=== PATIENT | female | born 1940 | race Caucasian/White ===

== ENCOUNTER 2024-06-28 17:27 | Inpatient (IN) ==
--- NOTE | 2024-06-28 17:32 | ED Triage Note ---
Date of Service June 28, 2024 Provider in Triage Author: Sangita Woo History of Present Illness This patient was briefly evaluated while in triage. An abbreviated physical exam was performed. This patient is a 83-year-old Female who presents to the ED for evaluation here with son and lethargic, weakness, poor PO intake, less verbal, tremulous since a fall a couple of days ago fell with walker - hit right shoulder, injured right wrist, unsure if hit her head DMT1, CKD BSG 257 in triage tested positive for COVID 3 days ago, they have been testing patient daily and she has been negative. Physical Exam GENERAL: awake and cooperative in wheelchair CARDIOVASCULAR: tachycardic RESPIRATORY: CTA ABDOMEN: BS x 4. Nontender to palpation. EXT: ecchymosis noted to right shoulder Initial orders for labs and / or imaging were placed and patient was placed in the waiting area until a bed is available. Please see further documentation for the full ED course.
--- NOTE | 2024-06-28 18:04 | Emergency Department Note ---
Impression & Plan COVID-19 virus infection Admission ED Provider Note HPI: History obtained from patient. The patient is a 83-year-old female with history of dementia, presents to the emergency department with her and her son at the bedside for concern for altered mental status. Patient's family states over the past several days she has been weaker than usual, she has had a diminished appetite, she seemed to be lucid up until the past 24 hours or so when she has been more confused. Patient's son states that 2 days ago she did have a fall in the bathroom. On arrival here to the ED the patient is mildly tachycardic, she is otherwise hemodynamically stable and saturating well on room air. Patient does not have any focal deficits on my initial evaluation. ROS: - Per HPI Differential Diagnosis: Sepsis, intracranial hemorrhage, stroke, hepatic encephalopathy, metabolic encephalopathy, acute on chronic dementia, urinary tract infection, viral upper respiratory infection, amongst other potential pathologies. *Outpatient medications and allergy history reviewed. PE: General: Alert, frail-appearing, no acute distress HEENT: Normocephalic, trachea midline Eyes: Extraocular eye movement is intact, no scleral erythema Pulmonary: Clear to auscultation bilaterally, no wheezing Cardio: Tachycardic rate with regular rhythm GI: Abdomen is soft to palpation : No suprapubic tenderness MSK: No evidence of trauma or malformation of the extremities, no edema Skin: No evidence of rash Neuro: Alert, no focal deficits, ambulates all extremities spontaneously, equal bilateral wildlife removal specialist strength, symmetrical facial movements are appreciated Psychiatric: Cooperative INDEPENDENT INTERPRETATIONS: quality assurance monitor: (As interpreted by myself): - An order was placed for continuous cardiac monitoring - Patient was noted to be in sinus rhythm with a rate of 110 EKG: (As interpreted by myself): Rate: 117 Rhythm: Probable sinus rhythm with significant baseline artifact Intervals: Within normal limits ST changes: No ST elevation Time: 1811 Chest x-ray: (As interpreted by myself): No acute disease Interventions provided in ED: -IV fluid bolus Medical Decision Making: IV was established and lab work obtained, patient was placed on groundwater monitoring technician. Lab work shows no leukocytosis, hemoglobin is stable at 9.6, platelet count is normal, CMP shows acute on chronic kidney injury with creatinine of 4.09, baseline appears to be around 3.3 based off previous lab work, troponin is mildly elevated at 17.2, COVID-19 testing was obtained and is positive. Chest x-ray per my interpretation does not show any evidence of acute disease. Patient remains mildly tachycardic, reassessment, CT imaging of head was obtained that does not show any evidence of any acute intracranial process. Patient's family expresses concern that she has not been eating, they do not feel that she is stable for discharge home to which I am in agreement. I did therefore discuss the patient's presentation with the on-call hospitalist for [facility], Dr. Jefferson, and the patient was placed for admission in stable condition for further care. Consultants/Discussions held with other healthcare providers: -Hospitalist, Dr. Jefferson Disposition discussion held by myself with: -Patient and patient's and son at the bedside Diagnosis: 1. COVID-19 infection, acute 2. Acute kidney injury 3. Anemia, chronic, stable 4. History of dementia 5. Elevated high-sensitivity troponin level, acute, mild Disposition: Admission Aries Man DO Emergency Medicine Past Med/Surg History Problem List (Updated 06/28/24 @ 23:20 by Aries Man DO) COVID-19 virus infection (Acute) Social History Smoking Status: Never smoker Preferred Language: Faroese Feels Safe at Home: Yes Allergies Allergies Allergy/AdvReac Type Severity Reaction Status Date / Time No Known Allergies Allergy Verified 06/28/24 17:33 Home Meds Home Medications Medication Instructions Recorded Confirmed aspirin 81 mg tablet,delayed 81 mg PO QAM 06/28/24 06/28/24 release atorvastatin 40 mg tablet 40 mg PO QAM 06/28/24 06/28/24 clopidogrel 75 mg tablet 75 mg PO QAM 06/28/24 06/28/24 ezetimibe 10 mg tablet 10 mg PO DAILY 06/28/24 06/28/24 insulin aspart U-100 100 unit/mL 0 sliding scale dose continuous 06/28/24 06/28/24 subcutaneous solution (Novolog subcutaneous infusion CONTINOUS U-100 Insulin aspart) metoprolol succinate 100 mg 100 mg PO QPM 06/28/24 06/28/24 tablet,extended release 24 hr nifedipine 60 mg tablet,extended 60 mg PO QAM 06/28/24 06/28/24 release 24 hr sodium bicarbonate 650 mg tablet 1,300 mg PO BID 06/28/24 06/28/24 Results & Data (ED) Vital Signs Vital Signs - 24 hr 06/28/24 17:30 06/28/24 18:22 06/28/24 18:24 Temperature 36.5 C Temperature Source Temporal Artery Scan Pulse Rate 111 H 117 H Pulse Rate [Apical] 103 H Respiratory Rate 18 20 18 Respiratory Effort / Characteristics Non-Labored Spontaneous Non-Labored Spontaneous Respiratory Depth Normal Respiratory Pattern Regular Regular Blood Pressure 117/74 Blood Pressure [Right Arm] 161/86 H Blood Pressure Mean 88 Blood Pressure Mean [Right Arm] 111 Blood Pressure Position [Right Arm] Semi-fowlers Pulse Oximetry 98 100 98 Oxygen Delivery Method Room Air Room Air Room Air Sepsis Recent Fever Within 48 Hours No Sepsis New/Unexplained Change in Mental Status N/A Sepsis Action Taken by Nursing No Action Required 06/28/24 18:24 06/28/24 18:49 06/28/24 20:52 Temperature Temperature Source Pulse Rate 137 H Pulse Rate [Apical] 113 H Respiratory Rate 19 Respiratory Effort / Characteristics Respiratory Depth Respiratory Pattern Blood Pressure Blood Pressure [Right Arm] 129/77 Blood Pressure Mean Blood Pressure Mean [Right Arm] 94 Blood Pressure Position [Right Arm] Pulse Oximetry 98 96 Oxygen Delivery Method Room Air Room Air Sepsis Recent Fever Within 48 Hours Sepsis New/Unexplained Change in Mental Status Sepsis Action Taken by Nursing 06/28/24 22:00 06/28/24 22:45 Temperature Temperature Source Pulse Rate 104 H Pulse Rate [Apical] 108 H Respiratory Rate 19 Respiratory Effort / Characteristics Respiratory Depth Respiratory Pattern Blood Pressure Blood Pressure [Right Arm] 122/97 Blood Pressure Mean Blood Pressure Mean [Right Arm] 105 Blood Pressure Position [Right Arm] Pulse Oximetry 96 Oxygen Delivery Method Sepsis Recent Fever Within 48 Hours Sepsis New/Unexplained Change in Mental Status Sepsis Action Taken by Nursing Laboratory Data 06/28/24 17:50 06/28/24 17:50 Lab Results 06/28/24 06/28/24 06/28/24 Range/Units 17:34 17:50 18:11 WBC 9.42 (4.8-10.8) K/ul RBC 3.36 L (4.20-5.40) M/uL Hgb 9.6 L (12.0-16.0) g/dl Hct 29.7 L (37.0-47.0) % MCV 88.4 (80.0-100.0) fL MCH 28.6 (25.0-34.0) pg MCHC 32.3 (32.0-36.0) g/dL RDW Std Deviation 42.5 (36.4-46.3) fL RDW Coeff of Sean 13.1 (11.5-14.5) % Plt Count 156 (130-400) K/uL MPV 11.7 (9.4-12.4) fL Immature Gran % (Auto) 2.0 % Neut % (Auto) 71.6 % Lymph % (Auto) 11.9 % Motley % (Auto) 13.9 % Eos % (Auto) 0.0 % Baso % (Auto) 0.6 % Neut # (Auto) 6.74 H (1.40-6.50) K/uL Lymph # (Auto) 1.12 L (1.20-3.40) K/uL Motley # (Auto) 1.31 H (0.11-0.59) K/uL Eos # (Auto) 0.00 (0.00-0.50) K/uL Baso # (Auto) 0.06 (0.00-0.20) K/uL Immature Gran # (Auto) 0.19 (0.01-0.20) K/uL Sodium 136 (136-145) mmol/L Potassium 4.2 (3.5-5.1) mmol/L Chloride 99 (98-107) mmol/L Carbon Dioxide 24 (21-32) mmol/L Anion Gap 13 H (3-11) BUN 85 H (6-23) mg/dl Creatinine 4.09 H (0.6-1.2) mg/dl Est Cr Clr Drug Dosing Not Reportable Est GFR ( Amer) 11.1 ml/min Est GFR (Non-Af Amer) 9.5 ml/min BUN/Creatinine Ratio 20.8 H (10-20) Glucose 235 H (70-99(Fasting)) mg/dl POC Glucose 257 H (70-99) mg/dl Calcium 9.6 (8.6-10.3) mg/dl Magnesium 2.3 (1.7-2.4) mg/dl Total Bilirubin 0.4 (0.2-1.0) mg/dl AST 13 (13-39) U/L ALT 7 (7-52) U/L Alkaline Phosphatase 86 (34-104) U/L Troponin I High Sens 17.2 H (0-14) pg/ml Total Protein 7.7 (6.0-8.3) gm/dl Albumin 4.1 (3.4-5.0) gm/dl Globulin 3.6 (2.5-4.0) gm/dl Albumin/Globulin Ratio 1.1 (0.9-2) SARS-CoV-2 (PCR) POSITIVE A (Negative) Influenza Type A (PCR) Negative (Neg) Influenza Type B (PCR) Negative (Neg) RSV (RT-PCR) Negative (Neg) Administered Medications Discontinued Medications Sodium Chloride (Nss) 1,000 mls @ 999 mls/hr IV .Q1H1M ONE Stop: 06/28/24 19:03 Last Infusion: 06/28/24 19:21 Dose: Infused Documented By: Admin: 06/28/24 18:08 Dose: 999 mls/hr Documented By: TIFFANY Sodium Chloride (Nss) 1,000 mls @ 999 mls/hr IV .Q1H1M ONE Stop: 06/28/24 21:33 Last Infusion: 06/28/24 21:58 Dose: Infused Documented By: Admin: 06/28/24 20:51 Dose: 999 mls/hr Documented By: ASW Imaging Data Radiologist's Impression: Chest X-Ray 06/28/24 17:33 XR chest 1V not portable CLINICAL HISTORY: WEAKNESS COMPARISON STUDY: Chest radiograph 08/06/2024. FINDINGS: Lung volumes are normal. Lungs are clear. There is no pneumothorax or pleural effusion. Cardiac size is normal. Mediastinal contours are normal. There is no evidence for pulmonary edema. An occluder device projects over the left heart. IMPRESSION: No acute cardiopulmonary findings. ACT 112: Negative or not required by law. Electronically signed by: Jossue Ernandez M.D. 06/28/2024 6:[address] 06/28/24 17:34 Exam(s): CT HEAD Without Contrast EXAM: CT Head Without Intravenous Contrast CLINICAL HISTORY: Reason for exam: FALL, WEAKNESS. TECHNIQUE: Axial computed tomography images of the head/brain without intravenous contrast. CTDI is 142.6 mGy and DLP is 1796.57 mGy-cm. Automated exposure control was utilized for the study. A dose lowering technique was utilized adhering to the principles of ALARA. Moderate motion artifact in spite of repeat scanning. COMPARISON: None. FINDINGS: Brain: No mass effect or acute infarct. No acute hemorrhage. Moderate atrophy and chronic white matter disease. Ventricles: No hydrocephalus or midline shift. Bones/joints: Previous left frontal craniotomy. No acute skull fracture. Soft tissues: No scalp hematoma. Visualized Sinuses: Clear. Mastoid air cells: No mastoid effusion. IMPRESSION: 1. Moderate age-related findings. 2. No skull fracture, bleed, or acute intracranial abnormality. Electronically signed by: Veronica James M.D. 06/28/24 20:52 PM Discharge Plan Visit Data Chief Complaint: Confusion Stated Complaint: FALL, SHAKING, CONFUSION, NOT EATING MUCH, DIABETE ED Provider: Aries Man Discharge Problem: COVID-19 virus infection Forms Stand Alone Forms: My [facility] Prescriptions Prescriptions: No Action atorvastatin 40 mg tablet 40 mg PO QAM metoprolol succinate 100 mg tablet extended release 24 hr 100 mg PO QPM clopidogrel 75 mg tablet 75 mg PO QAM aspirin 81 mg Tablet,Delayed Release (Dr/Ec) 81 mg PO QAM nifedipine 60 mg tablet extended release 24hr 60 mg PO QAM sodium bicarbonate 650 mg tablet 1,300 mg PO BID insulin aspart U-100 [Novolog U-100 Insulin aspart] 100 unit/mL solution 0 sliding scale dose continuous subcutaneous infusion CONTINOUS ezetimibe 10 mg tablet 10 mg PO DAILY Referrals Referrals: PCP,NO [Primary Care Provider] -
[2024-06-28 18:08] LABS: Basophils # (auto) 0.06 K/uL (0.00-0.20); Basophils % (auto) 0.6 %; Hematocrit (blood only) 29.7 % (37.0-47.0); Hemoglobin 9.6 g/dl (12.0-16.0); Immature Granulocytes # (auto) 0.19 K/uL (0.01-0.20); Lymphocytes # (auto) 1.12 K/uL (1.20-3.40); Lymphocytes % (auto) 11.9 %; Mean Corpuscular Hemoglobin 28.6 pg (25.0-34.0); Mean Corpuscular Hgb Conc 32.3 g/dL (32.0-36.0); Mean Corpuscular Volume 88.4 fL (80.0-100.0); Mean Platelet Volume 11.7 fL (9.4-12.4); Monocytes # (auto) 1.31 K/uL (0.11-0.59); Monocytes % (auto) 13.9 %; Neutrophils # (auto) 6.74 K/uL (1.40-6.50); Neutrophils % (auto) 71.6 %; Platelet Count 156 K/uL (130-400); RDW Coefficient of Variation 13.1 % (11.5-14.5); RDW Standard Deviation 42.5 fL (36.4-46.3); Red Blood Count 3.36 M/uL (4.20-5.40); White Blood Count 9.42 K/ul (4.8-10.8)
[2024-06-28] MEDS: SODIUM CHLORIDE 0.9% 1,000 ML IV ONE ×2 (18:08→20:51)
[2024-06-28 18:19] LABS: Alanine Aminotransferase 7 U/L (7-52); Albumin Globulin Ratio 1.1 (0.9-2); Albumin Level 4.1 gm/dl (3.4-5.0); Alkaline Phosphatase 86 U/L (34-104); Anion Gap 13 (3-11); Aspartate Aminotransferase 13 U/L (13-39); BUN Creatinine Ratio 20.8 (10-20); Bilirubin,Total 0.4 mg/dl (0.2-1.0); Blood Urea Nitrogen 85 mg/dl (6-23); Calcium 9.6 mg/dl (8.6-10.3); Carbon Dioxide 24 mmol/L (21-32); Chloride 99 mmol/L (98-107); Est GFR (African American) 11.1 ml/min; Est GFR (Non-African American) 9.5 ml/min; Globulin 3.6 gm/dl (2.5-4.0); Glucose 235 mg/dl (70-99(Fasting)); Magnesium 2.3 mg/dl (1.7-2.4); Potassium 4.2 mmol/L (3.5-5.1); Sodium 136 mmol/L (136-145); Total Protein 7.7 gm/dl (6.0-8.3)
[2024-06-28 18:25] LABS: Troponin I High Sensitivity 17.2 pg/ml (0-14)
--- NOTE | 2024-06-28 18:29 | XRay Report ---
XR chest 1V not portable CLINICAL HISTORY: WEAKNESS COMPARISON STUDY: Chest radiograph 08/06/2024. FINDINGS: Lung volumes are normal. Lungs are clear. There is no pneumothorax or pleural effusion. Car diac size is normal. Mediastinal contours are normal. There is no evidence for pulmonary edema. An oc cluder device projects over the left heart. IMPRESSION: No acute cardiopulmonary findings. ACT 112: Negative or not required by law. Electronically signed by: Jossue Ernandez M.D. 06/28/2024 6:27 PM
[2024-06-28 19:04] LABS: Influenza A virus by PCR Negative (Neg); Influenza B virus by PCR Negative (Neg); RSV by PCR Negative (Neg); SARS CoV2 RNA(COVID-19) Ceph POSITIVE (Negative)
--- NOTE | 2024-06-28 20:53 | CT Scan Report ---
Exam(s): CT HEAD Without Contrast EXAM: CT Head Without Intravenous Contrast CLINICAL HISTORY: Reason for exam: FALL, WEAKNESS. TECHNIQUE: Axial computed tomography images of the head/brain without intravenous contrast. CTDI is 142.6 mGy and DLP is 1796.57 mGy-cm. Automated exposure control was utilized for the study. A dose lowering technique was utilized adhering to the principles of ALARA. Moderate motion artifact in spite of repeat scanning. COMPARISON: None. FINDINGS: Brain: No mass effect or acute infarct. No acute hemorrhage. Moderate atrophy and chronic white matter disease. Ventricles: No hydrocephalus or midline shift. Bones/joints: Previous left frontal craniotomy. No acute skull fracture. Soft tissues: No scalp hematoma. Visualized Sinuses: Clear. Mastoid air cells: No mastoid effusion. IMPRESSION: 1. Moderate age-related findings. 2. No skull fracture, bleed, or acute intracranial abnormality. Electronically signed by: Veronica James M.D. 06/28/24 20:52 PM
--- OUTSIDE RECORDS SUMMARY | 2024-06-29 00:22 | External Medical Summary | Summary of Care ---
Author Name Unknown Organization [facility] Address [address] [place] [address] Phone [phone] Care Team Providers Care Vulcan Crewmember Name Role Phone Cecilia Madden Primary Care Provider Reason for Referral * Evaluate & Treat - Unlimited Visits (Within 3 days (urgent)) - Pending Review Specialty Diagnoses / Procedures Referred By José Manuel martin Referred To Contact Dietitian / Nutrition Services Diagnoses CKD (chronic kidney disease) stage 4, GFR 15-29 ml/min ([facility]) Mikki Byrne MD [address] [place] [address] Referral ID Status Reason Start Date Expiration Date Visits Requested Visits Authorized [id number] Pending Review Specialty Services Required 05/15/[phone] Question Answer Referral Priority Within 3 days (urgent) Where should this appointment be scheduled? [facility] What condition is the patient being seen for? CKD Is this for [facility]? Yes Comments Medical Nutrition Therapy Reason for Visit * Reason Comments Pre-Transplant Evaluation Encounter Details Date Type Department Care Team (Late st Contact Info) Description 05/15/2024 11:00 AM EDT Office Visit Transplant Clinic, [facility] [address] [place] [address] Mikki Byrne MD [address] [place] [address] Ayad Cuadra MD [address] [place] [address] Nurse [facility] [address] [place] [address] Naa Nina, FILTER BED PLACER [address] [place] [address] CKD (chronic kidney disease) stage 4, GFR 15-29 ml/min ([facility])* Allergies No known active allergiesdocumented as of this encounter (statuses as of 05/16/2024) Medications Medication Sig Dispensed Refills Start Date End Date Status NovoLOG FlexPen 100 UNIT/ML Subcutaneous Solution Pen-injector (insulin aspart) Inject under the skin . Units as per sliding scale plus carbohydrate count divided by before each meal. (1-4 units) 2 Active Metoprolol Tartrate 100 MG Oral Tablet (Lopressor) Take 1 Tablet by mouth in the morning and 1 Tablet before bedtime. 60 Tablet 5 3 Active Additional Information Patient taking differently:100 mg OralDaily(AM), Reported on 05/19/2023 Insulin Glargine Solostar 100 UNIT/ML Subcutaneous Solution Pen-injector At 10 am Inject under the skin 16 Units . At 10 am 45 mL 2 3 Active Iron-Vitamin C 65-125 MG Oral Tablet (Vitron C)Indications:CK D (chronic kidney disease) stage 4, GFR 15-29 ml/min ([facility]) Take 1 Tablet by mouth in the morning. 3 Active methIMAzole 5 MG Oral Tablet (Tapazole)Indica tions:Hyperthyro idism Take 0.5 Tablets by mouth in the morning. 45 Tablet 3 3 Active Additional Information Patient not taking.Reported on 03/01/2024 [employer] G7 Panelboard Tank Pumper Device Use as directed. Act shi Basaglar KwikPen 100 UNIT/ML Subcutaneous Solution Pen-injector At 10 am Inject under the skin 16 Units 45 mL 2 3 Active Additional Information Patient not taking.Reported on 03/01/2024 Atorvastatin Calcium 40 MG Oral Tablet (Lipitor)Indicat ions:Hyperlipide tamy with target LDL less than 100 TAKE 1 TABLET BY MOUTH EVERY DAY IN THE MORNING 90 Tablet 3 3 Active BD Pen Needle Mini U/F 31G X 5 MM (Insulin Pen Needle)Indicatio ns:Type 2 diabetes mellitus with hemoglobin A1c goal of less than 8.0% ([facility]) USE 3-4 TIMES DAILY FOR LONG AND SHORT ACTING INSULIN. 400 Each 2 3 Active Sodium Bicarbonate 650 MG Oral TabletIndication s:CKD (chronic kidney disease) stage 4, GFR 15-29 ml/min ([facility]) Take 2 Tablets by mouth in the morning and 2 Tablets before bedtime. 120 Tablet 11 4 Active Metoprolol Tartrate 50 MG Oral Tablet (Lopressor) TAKE 1 TABLET (50 MG) BY MOUTH EVERY EVENING. IN ADDITION TO 100MG IN THE MORNING. 60 Tablet 11 3 05/15/20 24 Discontinued(Ma dication List Clean Up) NIFEdipine ER Osmotic Release 60 MG Oral Tablet Extended Release 24 Hour (Procardia XL) Take 1 Tablet by mouth in the morning. 90 Tablet 1 4 05/15/20 24 Discontinued documented as of this encounter (statuses as of 05/16/2024) Active Problems Problem Noted Date Diagnosed Date Hyperparathyroidism 04/19/2023 Type 2 diabetes mellitus wit h diabetic chronic kidney disease 10/13/2022 CKD (chronic kidney disease) stage 4, GFR 15-29 ml/min 09/10/2022 PAF (paroxysmal atrial fibrillation) 09/10/2022 Hyperthyroidism 04/16/2022 Proteinuria due to type 2 diabetes mellitus 03/31 Hyperlipidemia 01/14/2022 TIA (transient ischemic attack) 04/26/2021 S/P hip replacement, left 04/26/2021 Chronic diastolic heart failure 12/12/2020 Essential hypertension 12/12/2020 Right thyroid nodule 12/12/2020 T2DM (type 2 diabetes mellitus) documented as of this encounter (statuses as of 05/16/2024) Immunizations Name Administration Dates Next Due Covid-19, Mrna, Lnp-s, Pf, B ivalent, 30 Mcg, IM, 12 yrs and above ([employer] 07/14/2022 Pneumococcal Conjugate Vaccine, 20-valent (Prevn ar20) 09/10/2022 SARS-COV-2 (COVID-19) Vaccine Unspecified 2020 Seasonal Influenza Virus Vac cine, Unspecified Formulation 07/14/2022 documented as of this encounter Social History Tobacco Use Types Packs/Day Years Used Date Smoking Tobacco: Never Smokeless Tobacco: Never Tobacco Cessation:Counseling Given: Not Answered Alcohol Use Standard Drinks/Week Comments Yes 1 (1 standard drink = 0.6 oz pure alcohol) 1 glass of wine nightly with supper PHQ-2 Answer Date Recorded PHQ Adult Total Score 0 04/19/2023 Hunger Vital Sign Answer Date Recorded Within the past 12 months, y ou worried that your food would run out before you got the money to buy more. Never true 07/20/20 Within the past 12 months, t he food you bought just didn't last and you didn't have money to get more. Never true 07/20/2022 Utilities Answer Date Recorded Do you have trouble paying y our heating, water, or electric bill? (Adult - for ages 18 years and over) Not on file 04/17/2024 Is your family able to pay t he heat, water, or electric bill? (Household - for ages 0-17 years) Not on file 04/17/2024 Does your family have access to good internet? (Household - for ages 0-17 years) Not on file 04/17/2024 Social Connections Answer Date Recorded How often do you feel lonely or isolated from those around you? (Adult - for ages 18 years and over) Not on file 04/17/2024 Sex and Gender Information Value Date Recorded Sex Assigned at Female 07/20/2022 9:29 AM EDT Gender Identity Female 07/20/2022 9:29 AM EDT Sexual Orientation Straight 07/20/2022 9: 29 AM EDT Job Start Date Occupation Industry Not on file Not on file Not on file documented as of this encounter Last Filed Vital Signs Vital Sign Reading Time Taken Comments Blood Pressure 100/61 05/15/2024 11:28 AM EDT Pulse 71 05/15/2024 11:28 AM EDT Temperature 35.6 C (96 F) 05/15/2024 11:28 AM EDT Respiratory Rate - - Oxygen Saturation - - Inhaled Oxygen Concentration - - Weight 55 kg (121 lb 3.2 oz) 05/15/2024 11:28 AM EDT Height 165 cm (5' 4.96") 05/15/2024 11:28 AM EDT Body Mass Index 20.19 05/15/2024 11:28 AM EDT documented in this encounter Progress Notes * Naa Nina LSW - 05/16/2024 3:10 PM EDT Patient identified by verbal name and date of . BACKGROUND INFO DIAGNOSIS: Pre-Renal Transplant Evaluation PRESENT AT INTERVIEW: Patient; her son, Kam, and her , Channing for part of the meeting. CURRENT SOCIAL STATUS: HOUSEHOLD COMPOSITION: Patient lives with her in their own home. They live beside their son, Kam and his family. When asked about living in both [place] and [facility], patient asks her son, "Can you explain that to her." RELEVANT SOCIAL/FAMILY HISTORY: Please note, patient was unable to provide much detail about her social history. She did ask her family to fill in for her. Patient reports she grew up in [place]. She was unable to describe when in her life she moved to [facility], not knowing if she was or not at that time. Her reported they were not and she drove herself across the country. She is able to report they have been for 55 years. They share two sons. Kam lives in [place] and accompanies her today. Satish lives in [facility]. Kam has a daughter, Radha who is seventeen and a son, Mele who is five. CURRENT LEVEL OF FUNCTIONING: Patient reports she plays piano and sews. Her manages the household. Patient reports he has always done the cooking, cleaning, laundry. However, her son notes elizabeths taken over the full load of those tasks in recent years. She arrives to clinic today in a wheelchair due to the distance. EDUCATION: Patient reports she attended a [employer] in [place] to work with the piano teachers there. 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 SPOUSES EMPLOYMENT STATUS: Retired INCOME/FINANCIAL STATUS: Not specifically questioned. No specific hardships are noted. INSURANCE COVERAGE/COPAY ISSUE: No issues noted on interview today. TREATMENT MODALITY: Patient has not started dialysis. PROBLEMS IDENTIFIED BY DIALYSIS UNIT: N/A PREVIOUS TRANSPLANTS: none EMOTIONAL/PSYCHOLOGICAL PROFILE UNDERSTANDING OF ILLNESS/TRANSPLANT PROCESS: Patient seems to have a limited understanding of the transplant process. When asked how she feels about a transplant she notes, "I have no choice". BARRIERS TO LEARNING: On interview today, patient struggles with basic details of her recent and remote history. She becomes easily overwhelmed and becomes tearful stating, "Why are you asking me allof these questions?" All information will need to be provided to family as well as patient to ensure understanding. IMPRESSION: On interview today, Ms Garcia presents initially with smiling affect and pleasant mood. Her mood is somewhat labile during the short interview as she becomes tearful and overwhelmed and also irritated at her and asks him not to answer a question. She is neatly dressed and groomed. She is alert to person. Additional orientation is not specifically tested but she asked SOLID WASTE ANALYST twice why she is here. Her speech is of normal rate and tone and her thoughts are organized but do not provide specific details about her life. SOCIAL PROBLEMS IDENTIFIED PSYCHIATRIC ILLNESS: None noted on review of chart, otherwise, not specifically asked. S/I - See above H/I- See above DRUG & ALCOHOL USE: Patient denies. MEDICAL NON-COMPLIANCE: None noted. COPING SKILLS IDENTIFIED: Patient reports she plays the piano. She notes she has been playing sinceshe was [age] yo. She reports she also sews. She notes a few times she is a creative person. DISCUSSION OF AN LRD: Not discussed Durable Healthcare Power of Information Systems Specialist discussed; information provided. SOCIAL WORK ASSESSMENT/RECOMMENDATION: Social Support: Low - Good support, stable committed relationship; caregiver(s) able to provide assistance Financial/Insurance: Low - Stable access to healthcare (insurance); work history; good resources;adequate income to meet needs Compliance: Moderate - Struggles with understanding of medical situation; reports of non-compliance; questionable ability to self-manage; needs assistance to manage meds and treatment Functional Status: High - Requires assistqance with ADLs; sedentary; dependent; current health issues that imapct QOL Cognitive function: High- Moderate to severe mental retardation OR nadia dementia or severe cognitive impairment; unable to self-manage; caregiver not available or reliable; resides in nursing facility; or would require long-term care post-txp to manage post-txp routine. Mental Health: Low - No current or past history of mental illness; No current symptoms; Intact mental status; No family history of mental illness; No past abuse, neglect, loss or other trauma Coping: Low - Identifiable healthy coping skills; History of coping well with stress; Insightful, able to identify needs and seek assistance Substance Abuse: Low - No use or limited use of alcohol; No drug use, including tobacco; No evidence of history of abuse/dependency Legal Issues: Low - Never any legal issues Understanding of Transplant process: High - Unrealistic; little understanding of transplant as a treatment Motivation for transplant: Moderate - Uncertain of desire for transplant; shows little motivation At present, SOLID WASTE ANALYST is unable to truly complete the assessment given patients current cognitive functioning. She is unable to remember specific details, remote or recent about her life. She becomes easily overwhelmed with the interview process and SOLID WASTE ANALYST is unwilling to perform MOCA or MMSE which could s erve to upset her further. Her family appears an amazing support; however, patient has a high psychosocial risk profile score and is not an appropriate transplant candidate from a psychosocial perspective at this time. Naa Nina LCSW Patient needs to be presented at Selection Conference within 3 months of this psychosocial evaluation. If there is a delay, additional Social Work consultation may be required. * Mikki Byrne MD - 05/15/2024 1:03 PM EDT Transplant Evaluation Flora is a 83 year old female here for evaluation to be a transplant recipient, referred by: Chico Vuaghn MD I will communicate with the referring provider by letter and/or shared electronic medical record. Type of transplant: Kidney Prior transplant: no CKD: yes Cause of renal failure: Patient is unable to tell me cause of kidney failure - Last note from Dr Vaughn from 03/01/2024 reviewed -likely multifactorial DM, Htn and age related decline CKD stage 4 with high-grade proteinuria of about 2 g already established while in [facility]. CKD 4 for atleast few years now , was on ACEI, now stopped . Biopsy proven: no Dialysis: DM: yes, Type II, diagnosis date 15 years , now has been diagnosed as type 1 DM, current treatment Insulin , HbA1c 8.4% HTN: no, diagnosis date , current treatment Urine output: Normal Living Donor: sons Multiple Listings: No Foreign travel: No TB exposure: No HIV: No Epilepsy: No TIA? IHD/CABG--no Pvd--no UTI: Multiple Kidney Stones: No Malignancy: Meningioma Education/work: Musician Primary critical care unit manager: Extended family Back up critical care unit manager: Past Medical History: Diagnosis Date HLD (hyperlipidemia) HTN (hypertension) T2DM (type 2 diabetes mellitus) (HCC) No past surgical history on file. Social History Socioeconomic History Marital status: Spouse name: Not on file Number of children: Not on file Years of education: Not on file Highest education level: Not on file Occupational History Not on file Tobacco Use Smoking status: Never Smokeless tobacco: Never Vaping Use Vaping status: Never Used Substance and Sexual Activity Alcohol use: Yes Alcohol/week: 1.0 standard drink of alcohol Types: 1 5 oz of wine per week Comment: 1 glass of wine nightly with supper Drug use: Never Sexual activity: Not on file Other Topics Concern Not on file Social History Narrative Not on file Social Determinants of Health Financial Resource Strain: Not on file Food Insecurity: No Food Insecurity (07/20/2022) Hunger Vital Sign Worried About Running Out of Food in the Last Year: Never true Ran Out of Food in the Last Year: Never true Transportation Needs: Not on file Social Connections: Unknown (04/17/2024) Social Connections How often do you feel lonely or isolated from those around you? (Adult - for ages 18 years and over): Not on file Housing Stability: Not on file No family history on file. Current Outpatient Medications Medication Sig Dispense Refill NovoLOG FlexPen 100 UNIT/ML Subcutaneous Solution Pen-injector (insulin aspart) Inject under the skin . Units as per sliding scale plus carbohydrate count divided by before each meal. (1-4 units) Metoprolol Tartrate 100 MG Oral Tablet (Lopressor) Take 1 Tablet by mouth in the morning and 1 Tablet before bedtime. (Patient taking differently: Take 1 Tablet by mouth in the morning.) 60 Tablet 5 Insulin Glargine Solostar 100 UNIT/ML Subcutaneous Solution Pen-injector At 10 am Inject under the skin 16 Units . At 10 am 45 mL 2 Iron-Vitamin C 65-125 MG Oral Tablet (Vitron C) Take 1 Tablet by mouth in the morning. [employer] G7 Panelboard Tank Pumper Device Use as directed. Atorvastatin Calcium 40 MG Oral Tablet (Lipitor) TAKE 1 TABLET BY MOUTH EVERY DAY IN THE MORNING 90Tablet 3 BD Pen Needle Mini U/F 31G X 5 MM (Insulin Pen Needle) USE 3-4 TIMES DAILY FOR LONG AND SHORT ACTING INSULIN. 400 Each 2 NIFEdipine ER Osmotic Release 60 MG Oral Tablet Extended Release 24 Hour (Procardia XL) Take 1 Tablet by mouth in the morning. 90 Tablet 1 Sodium Bicarbonate 650 MG Oral Tablet Take 2 Tablets by mouth in the morning and 2 Tablets before bedtime. 120 Tablet 11 methIMAzole 5 MG Oral Tablet (Tapazole) Take 0.5 Tablets by mouth in the morning. (Patient not taking: Reported on 03/01/2024) 45 Tablet 3 Basaglar KwikPen 100 UNIT/ML Subcutaneous Solution Pen-injector At 10 am Inject under the skin 16 Units (Patient not taking: Reported on 03/01/2024) 45 mL 2 No current facility-administered medications for this visit. Most of the questions were answered by son or the , patient was unable to answer. Review of Systems - Physical Capacity: can walk 2 blocks, can walk up 0 flights of stairs. Assistive Devices: Cane Prosthesis: CONSTITUTIONAL: No change in weight, No weakness, No fatigue, and No fevers, sweats, or chills EYE: No recent significant change in vision, No eye pain, redness, discharge, No diplopia, No h/o cataracts, and No h/o glaucoma EARS: No ear pain, No drainage, No tinnitus or vertigo, and No recent change in hearing NOSE: No history of frequent colds or sinusitis, No nasal stuffiness, No history of Hay Fever, and No significant epistaxis MOUTH: No bleeding gums, No thrush, or No sore throat NECK: No lumps or masses, No swollen glands, No recent swelling in thyroid area, No significant pain in neck, and No h/o goiter or thyroid disease PULMONARY: No cough, sputum, or hemoptysis, No wheezing, No rales, No shortness of breath, and No recent change in breathing CARDIOVASCULAR: No chest pain, No shortness of breath, No dyspnea on exertion, No orthopnea, No paroxysmal nocturnal dyspnea, No edema, No palpitations, and No syncope BREASTS: No new breast lumps or masses, No severe breast pain, No nipple discharge, No recent change in shape/color, and Performs self breast exam GASTROINTESTINAL: No abdominal pain, No change in bowel habits, No significant heartburn, No significant change in appetite, No nausea, vomiting, diarrhea, or constipation, No hematemesis, No blood in stools or black tarry stools, No abdominal bloating or early satiety, and No dysphagia MALE: No STD, No dysuria, No frequency, No incontinence, No urgency, and Performs self testicular exam HEMATOLOGIC: No coagulation disorder, No anemia, No abnormal bleeding, No chills, No bruising, No HIV risk factors, No night sweats, No swollen nodes, No weight loss, and No history of transfusion EXTREMITIES: No pain, redness or swelling on the joints SKIN/INTEGUMENTARY: No edema, No rash, and No itching NEUROLOGIC: Normal balance, No headaches, No seizures, and No weakness PSYCHIATRIC: No depression, No anxiety, and No psychosis ALLERGY/IMMUN: No allergic triggers, No sneeze, nasal itch, ocular symptoms of allergy, No reactions to insect sting, No chemical sensitivities, and No Food Allergies ENDOCRINE: No heat intolerance, No cold intolerance, No thyroid trouble, and No excessive thirst orurination SLEEP: No sleep disorders BP 100/61 (BP Site: Left Arm, BP Position: Sitting, BP Cuff Size: Regular) | Pulse 71 | Temp 35.6 C (96 F) | Ht 1.65 m (5' 4.96") | Wt 55 kg (121 lb 3.2 oz) | BMI 20.19 kg/m | BSA 1.59 m PHYSICAL EXAMINATION: Constitutional: alert, healthy, well nourished Head: normocephalic, atraumatic Eyes: conjunctiva non-injected, sclera white Ears: pinna normal shape and color, canals patent, and TM's normal color and contour Nose: no mucosal erythema, no mucosal edema, and no purulent discharge Mouth: no exudate, no erythema, and lips, mucosa, and tongue normal Neck: supple, no adenopathy Lungs: clear to auscultation, breath sounds are equal and symmetric Heart: regular rate & rhythm and no murmur, gallops or rubs Abdomen: soft, non-tender Back: normal curvature, normal ROM, no CVA tenderness Extremities: no joint deformities, effusion, or inflammation, no edema, no skin discoloration Neuro: alert, gait normal, motor normal Skin: no obvious rashes or significant lesions Pre-transplant testing: Cardiac: TOE --in March for FATOUMATA closure with Amplatzer Amulet, iatrogenic ASD with L-R shunt, pre-existing PFO Vascular: CT scan not done Pap/Mammo: last year Colonoscopy: Sensitizations: Blood Transfusion: no Hospitalization:no :2 ( patient was unsure about her pregnancies) Immunizations: Hepatitis B series, flu shot, and pneumonia vaccine provided by dialysis unit Hep Bs Ab: Has not had Shingles vaccine Venous access issues:None Lab Results Component Value Date WBC 6.75 04/04/2024 WBC 8.03 03/01/2024 WBC, URINE - [facility] 50+ (A) 03/01/2024 WBC, URINE - [facility] 6-9 (A) 08/25/2022 No components found for: "HBG" Lab Results Component Value Date PLT 171 04/04/2024 PLT 203 03/01/2024 Lab Results Component Value Date SODIUM - [facility] 136 04/04/2024 SODIUM - [facility] 136 03/01/2024 SODIUM-OUTSIDE LAB 141 04/25/2024 Lab Results Component Value Date POTASSIUM - [facility] 4.8 04/04/2024 POTASSIUM - [facility] 4.6 03/01/2024 POTASSIUM-OUTSIDE LAB 4.3 04/25/2024 Lab Results Component Value Date CHLORIDE - [facility] 97 (L) 04/04/2024 CHLORIDE - [facility] 100 03/01/2024 CHLORIDE-OUTSIDE LAB 112 (H) 04/25/2024 Lab Results Component Value Date CO2 - [facility] 21 (L) 04/04/2024 CO2 - [facility] 21 (L) 03/01/2024 CO2-OUTSIDE LAB 18 (L) 04/25/2024 Lab Results Component Value Date GLUCOSE - [facility] 344 (H) 04/04/2024 GLUCOSE - [facility] 200 (H) 03/01/2024 GLUCOSE, URINE - [facility] 100 (A) 03/01/2024 GLUCOSE, URINE - [facility] Negative 08/25/2022 GLUCOSE-OUTSIDE LAB 86 04/25/2024 Lab Results Component Value Date BUN - [facility] 92 (H) 04/04/2024 BUN - [facility] 59 (H) 03/01/2024 BUN-OUTSIDE LAB 73 (H) 04/25/2024 Lab Results Component Value Date CREATININE - [facility] 3.2 (H) 04/04/2024 CREATININE - [facility] 2.7 (H) 03/01/2024 CREATININE, RANDOM URINE - [facility] 33 03/01/2024 CREATININE, RANDOM URINE - [facility] 34 03/01/2024 CREATININE-OUTSIDE LAB 2.78 (H) 04/25/2024 Lab Results Component Value Date CALCIUM - [facility] 9.3 04/04/2024 CALCIUM - [facility] 9.7 03/01/2024 CALCIUM-OUTSIDE LAB 8.3 (L) 04/25/2024 Lab Results Component Value Date MAGNESIUM - [facility] 2.0 03/01/2024 MAGNESIUM - [facility] 2.3 08/18/2022 Lab Results Component Value Date PHOSPHORUS - [facility] 4.7 04/04/2024 PHOSPHORUS - [facility] 4.5 03/01/2024 No results found for: "HGBA1C" IMP/PLAN: In summary, Flora is a 83 year old female with chronic kidney disease secondary to DM+HTN+age related decline, with significant cognitive impairment , frailty with multiple medical comorbidities including DM, afib, hypothyroidism, HFrEF, HTN, meningioma s/p resection 2014, hyperthyroidism who is aunfortunately not a candidate for Kidney transplant. We had the opportunity to discuss the following, specific for this patient: 1) Need of lifelong immunosuppression 2) Higher chances of opportunistic infections 3) Higher risk of certain types of cancers - skin, urologic and PTLD 4) Chances of worsening of diabetes post transplant./ Chances of NODAT 5) Reoccurance of tanacross disease. Recommend: 1) Patient to have detailed discussion with her Computer Instructor about dialysis options including home dialysis vs conservative approach to manage kidney decline. 2)It was explained in great detail that a kidney transplant and chronic immunosuppression will makeher QOL very poor and cause significant harm. Multiple questions answered, patient and family members exhibited good understanding. Risks and benefits of transplantation including overall average increase in life expectancy and higher quality of life with transplantation for most recipients. Discussed details of the surgical procedure with its attendant risks, benefits and alternatives. Types of donor organs discussed with patient, including Living donor, high KDPI kidney, Hepatitis CAb+ve/DARI +ve organs and donor after cardiac (DCD). The relative benefit of living donation over donor transplantation explained. Patient expresses understanding of the information discussed. Discussed survival advantage of transplantation and also discussed living donor advantage. Discussed multiple listing and also center and national outcomes statistics. Discussed risk vs. Benefit of transplantation and immunosuppression. Thank you for allowing me to participate in the care of Flora Garcia I spent a total of Greater than 55 mins (exact time 60 mins) on the date of service in preparation,delivery, and documentation of the care provided to Flora Garcia excluding any time spent in the performance of separately billed services. Mikki Byrne MD, FRACP Transplant Nephrology 05/15/2024 1:03 PM [facility] [address] * Stefanie Og RN - 05/15/2024 11:30 AM EDT NAME:Flora Garcia DATE of :1940 SEX:female SOCIAL SECURITY #:(Not on file) Referring Computer Instructor:Dr. 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) 3039 Secondary Diagnosis: Hypertension Hypertensive Nephrosclerosis (kidney disease caused by hypertension) 3040 History of Renal Disease: Decreasing renal function, patient is poor historian Diabetes: Insulin Dependent Adult Onset Age of Onset: "not sure" Date of Onset: "not sure" Initial Treatment: Oral agents Current Treatment: Insulin injections Other Medical History: Past Medical History: Diagnosis Date HLD (hyperlipidemia) HTN (hypertension) T2DM (type 2 diabetes mellitus) (HCC) BP 100/61 (BP Site: Left Arm, BP Position: Sitting, BP Cuff Size: Regular) | Pulse 71 | Temp 35.6 C (96 F) | Ht 1.65 m (5' 4.96") | Wt 55 kg (121 lb 3.2 oz) | BMI 20.19 kg/m | BSA 1.59 m Current Prescriptions: Current Outpatient Medications Medication Sig Dispense Refill Metoprolol Tartrate 100 MG Oral Tablet (Lopressor) Take 1 Tablet by mouth in the morning and 1 Tablet before bedtime. (Patient taking differently: Take 1 Tablet by mouth in the morning.) 60 Tablet 5 Insulin Glargine Solostar 100 UNIT/ML Subcutaneous Solution Pen-injector At 10 am Inject under the skin 16 Units . At 10 am 45 mL 2 Atorvastatin Calcium 40 MG Oral Tablet (Lipitor) TAKE 1 TABLET BY MOUTH EVERY DAY IN THE MORNING 90Tablet 3 BD Pen Needle Mini U/F 31G X 5 MM (Insulin Pen Needle) USE 3-4 TIMES DAILY FOR LONG AND SHORT ACTING INSULIN. 400 Each 2 NovoLOG FlexPen 100 UNIT/ML Subcutaneous Solution Pen-injector (insulin aspart) Inject under the skin . Units as per sliding scale plus carbohydrate count divided by before each meal. (1-4 units) Iron-Vitamin C 65-125 MG Oral Tablet (Vitron C) Take 1 Tablet by mouth in the morning. methIMAzole 5 MG Oral Tablet (Tapazole) Take 0.5 Tablets by mouth in the morning. (Patient not taking: Reported on 03/01/2024) 45 Tablet 3 Dexcom G7 Panelboard Tank Pumper Device Use as directed. Basaglar KwikPen 100 UNIT/ML Subcutaneous Solution Pen-injector At 10 am Inject under the skin 16 Units (Patient not taking: Reported on 03/01/2024) 45 mL 2 NIFEdipine ER Osmotic Release 60 MG Oral Tablet Extended Release 24 Hour (Procardia XL) Take 1 Tablet by mouth in the morning. 90 Tablet 1 Sodium Bicarbonate 650 MG Oral Tablet Take 2 Tablets by mouth in the morning and 2 Tablets before bedtime. 120 Tablet 11 No current facility-administered medications for this visit. Previous Transplants: no Nephrectomy: No Transfusions: no, patient does not know, Son thinks she has not had any. Number of Transfusions: unknown Date of Last Transfusion: unknown Parity 1. Partner's Name: Channing - x 55 years Number of Pregnancies: two Number of Children: two Transethnicity: Non /Non Trans Race: White Citizenship: [place] Citizenship Transfunc: Performs activities of daily living with some assistance Transemploy: Not working by choice Transed: Basic renal anatomy function and dysfunction, Transplantation as a treatment option, The evaluation process, The choice of cadaver, living related, and living unrelated transplantation, Withrespect to donor kidney transplantation, I reviewed both donors Kidney Donor Profile Index(KDPI) > 85% & CDC high risk donors. We reviewed the [employer] (UN[employer]) kidney allocation booklet detailing: - Q&A with regards to the new kidney allocation system - How kidneys are classified - Calculation of the Kidney Donor Profile Index (KDPI) score: The KDPI is calculated based on facts about the donor that affect how long the kidney is likely to function. Range is from zero to one hundred percent. The score is associated with how long the kidney is likely to function when compared to other kidneys. A KDPI score of 20% means that the kidney is likely to function longer than 80% of other available kidneys. A KDPI scare of 60% means that the kidney is likely to function longer than 40% of other available kidneys. The factors include: Age Height Weight Ethnicity Whether the donor due to loss of heart function, Donation after Cardiac (DCD), or loss of brain function, Brain- Donor (BDD) Stroke as cause of History of HTN History of DM Exposure to Hepatitis C virus Serum Creatinine , Tissue typing, the waiting list and the point system, Overview of the renal transplant surgery and postoperative care, Possible complications post renal transplantation, Immunosuppressive medications and possible side effects, HIV protocol, HIV testing of the donor and testing of antibody presence not viral exposure, Expectations of the patient after transplantation;, monitoring at home, returning to clinic, and taking medications, The patient was encouraged to review pamphlet "Transplant Services" that was mailed to them at the time of the referral for renal transplantation, The patient was instructed to call with questions, The patient was instructed to have any LRD's or LURD's contact us, The patient was instructed and given written information and consent form regarding: The importance of discussing this with supervisor steno pool at [facility], local supervisor steno pool, and family 10) Please return tothe transplant office the consent form after a decision has been made., Patient informed about multi-listing options, Listing consent form was reviewed The patient will be presented at the next transplant committee meeting. The patient needs the following in order to complete his evaluation for renal transplantation: Laboratory Studies, Chest x-ray, CT scan, Cardiac testing and clearance, Colonoscopy, Updated Mammogram. Patient was not able to decide on donor choices or to initial forms. Patient could not recall why she was present for appointment, at times upset that she was having surgery today, not understanding that this was an initial evaluation appointment. Son, present, was extremely supportive andpatient. documented in this encounter Plan of Treatment Upcoming Encounters Date Type Department Care Team (Late st Contact Info) Description 06/26/2024 9:40 AM EDT Office Visit Family Practice [facility] [address] [facility] [place] [address] Cecilia Madden DO [address] [facility] [place] [address] 07/20/2024 2:20 PM EDT Office Visit Nephrology, [facility] [address] [facility] [place] [address] Chico Vaughn MD [address] [facility] [place] [address] Scheduled Referrals Name Type Priority Associated Diagnoses Orde r Schedule NUTRITION-CLINICAL DIETITIAN REFERRAL OP Referral Within 3 days (urgent) CKD (chronic kidney disease) stage 4, GFR 15-29 ml/min (HCC) Ordered: 05/15/2024 Health Maintenance Due Date Last Done Comments DTaP,Tdap,and Td Vaccines (1 - Tdap) 1960 Zoster Vaccines (1 of 2) 1991 DXA Scan 2006 Diabetic Foot Exam 10/19/2023 10/19/2022 COVID-19 Vaccine ( - 2022- season) 2023 08/01/2023, 07/14/2022, 07/14/2022, Additional history exists HbA1c 02/24/2024 08/25/2023, 0507/2023, 08/18/2022 Depression Screening 04/19/2024 04/19/2023 Influenza Vaccine (FLU shot) (#1) 2024 08/01/2023, 07/14/2022, 07/14/2022, Additional history exists GFR 10/25/2024 04/25/2024, 04/01, 04/04/2024, Additional history exists Diabetic Eye Exam 11/21/2024 11/21/2023, , 12/01/2021, Additional history exists Albumin/Creatinine Ratio 03/01/2025 03/01/2024 PTH 03/01/2025 03/01/2024, 02/28, 08/18/2022 Hgb 04/04/2025 04/04/2024, 05/0 12/2023, 03/18/2023, Additional history exists Phosphate 04/04/2025 04/04/2024, 050 12/2023, 03/18/2023, Additional history exists Nephrology Referral 05/15/2025 05/15/2024 Pneumococcal Vaccine: 65+ Years Completed 09/10/2022 HPV (Gardasil) Vaccine Aged Out No lo nger eligible based on patient's age to complete this topic Hepatitis B Vaccine Aged Out No longe r eligible based on patient's age to complete this topic MENINGOCOCCAL (MENACTRA/MENVEO) Aged Out No longer eligible based on patient's age to complete this topic documented as of this encounter Medical Devices Not on filedocumented as of this encounter Visit Diagnoses Diagnosis CKD (chronic kidney disease) stage 4, GFR 15-29 ml/min (HCC)- Primary Chronic kidney disease, Stage IV (severe) documented in this encounter Care Teams Vulcan Crewmember Relationship Specialty Start Date End Date Cecilia Madden DO [address] [place] [address] PCP - General Family Medicine 10/08/22 documented as of this encounter
--- OUTSIDE RECORDS SUMMARY | 2024-06-29 00:22 | External Medical Summary | Summary of Care ---
Author Name Unknown Organization [facility] Address [address] [place] [address] Phone [phone] Care Team Providers Care Nitroglycerin Neutralizer Name Role Phone Carlos Madden DO Primary Care Provider Reason for Visit * Reason Comments eRx-Medication Refill Encounter Details Date Type Department Care Team (Late st Contact Info) Description 05/14/2024 Refill Family Practice [facility] [address] [facility] [place] [address] Carlos Madden DO [address] [facility] [place] [address] Allergies No known active allergiesdocumented as of [...] Iron-Vitamin C 65-125 MG Oral Tablet (Vitron C)Indications:CKD (chronic kidney disease) stage 4, GFR 15-29 ml/min (HCC) Take 1 Tablet by mouth in the morning. 3 Active methIMAzole 5 MG Oral Tablet (Tapazole)Indicat ions:Hyperthyroid ism Take 0.5 Tablets by mouth in the morning. 45 Tablet 3 3 Active Additional Information Patient not taking.Reported on 03/01/2024 [employer] Assembler Dc Field Ring Device Use as directed. Act shi Basaglar KwikPen 100 UNIT/ML Subcutaneous Solution Pen-injector At 10 am Inject under the skin 16 Units 45 mL 2 3 Active Additional Information Patient not taking.Reported on 03/01/2024 Atorvastatin Calcium 40 MG Oral Tablet (Lipitor)Indicati ons:Hyperlipidemi a with target LDL less than 100 TAKE 1 TABLET BY MOUTH EVERY DAY IN THE MORNING 90 Tablet 3 3 Active BD Pen Needle Mini U/F 31G X 5 MM (Insulin Pen Needle)Indication s:Type 2 diabetes mellitus with hemoglobin A1c goal of less than 8.0% (HCC) USE 3-4 TIMES DAILY FOR LONG AND SHORT ACTING INSULIN. 400 Each 2 3 Active Sodium Bicarbonate 650 MG Oral TabletIndications :CKD (chronic kidney disease) stage 4, GFR 15-29 ml/min (HCC) Take 2 Tablets by mouth in the morning and 2 Tablets before bedtime. 120 Tablet 11 4 Active NIFEdipine ER Osmotic Release 60 MG Oral Tablet Extended Release 24 Hour (Procardia XL) TAKE 1 TABLET BY MOUTH EVERY DAY IN THE MORNING 90 Tablet 4 Active NIFEdipine ER Osmotic Release 60 MG Oral [...] 30 Mcg, IM, 12 yrs and above ([employer]) 07/14/2022 Pneumococcal Conjugate Vaccine, 20-valent (Prevn ar20) 09/10/2022 SARS-COV-2 (COVID-19) Vaccine Unspecified 2020 Seasonal Influenza Virus Vac cine, Unspecified Formulation 07/14/2022 documented as of this encounter Social History Tobacco Use Types Packs/Day Years Used Date Smoking Tobacco: Never Smokeless Tobacco: Never Alcohol Use Standard Drinks/Week Comments Yes 1 (1 standard drink = 0.6 oz pure alcohol) 1 glass of wine nightly with supper PHQ-2 Answer Date Recorded PHQ Adult Total Score 0 04/19/2023 Hunger Vital Sign Answer Date Recorded Within the past 12 months, y ou worried that your food would run out before you got the money to buy more. Never true 07/20/20 22 Within the past 12 months, t he [...] on file documented as of this encounter Miscellaneous Notes * Telephone Encounter - Yolande Pimentel PHARM Tech - 05/16/2024 9:18 AM EDT Received message from [facility] regarding patient needing an appointment. Call Placed, Pt was agreeable to set up office visit. Patient scheduled for 06/26/2024. Thank you for your assistance Yolande Pimentel Robot Operator II [facility] 05/16/2024,9:18 AM * Telephone Encounter - Feliberto Christensen [facility] - 05/15/2024 1:07 PM EDTSigned Prescriptions: Disp Refills NIFEdipine ER Osmotic Release 60 MG Oral T*90 Tab*0 Sig: TAKE 1 TABLET BY MOUTH EVERY DAY IN THE MORNING Authorizing Provider: CARLOS MADDEN Ordering User: FELIBERTO CHRISTENSEN Electronically signed by Feliberto Christensen [facility] at 05/15/2024 1:07 PM EDT * Telephone Encounter - Feliberto Christensen [facility] - 05/15/2024 1:06 PM EDT Please contact patient so that an appointment can be scheduled with her PRIMARY CARE provider. Refill authorized to hold patient over in the mean time. Last Visit: 04/19/2023 (in office), 06/29/2022 (telemedicine) Next Visit: Visit date not found Madelyn StovallPh. Clinical Pharmacist [facility] [address] [place] [address], [address] [place] [address] : [phone] 05/15/2024,1:07 PM documented in this encounter Plan of Treatment Upcoming Encounters Date Type Department Care Team (Late st Contact Info) Description 06/26/2024 9:40 AM EDT Office Visit Family Practice [employer] [address] [facility] [place] [address] Carlos Madden DO [address] [facility] [place] [address] 07/20/2024 2:20 PM EDT Office Visit Nephrology, [facility] [address] [facility] [place] [address] Chico Vaughn MD [address] [facility] [place] [address] Health Maintenance Due Date Last Done Comments [...] 07/14/2022, Additional history exists GFR 10/25/2024 04/25/2024, 0603/2024, 04/04/2024, Additional history exists Diabetic Eye Exam 11/21/2024 11/21/2023, , 12/01/2021, Additional history exists Albumin/Creatinine Ratio 03/01/2025 03/01/2024 PTH 03/01/2025 03/01/2024, 02/28, 08/18/2022 Hgb 04/04/2025 04/04/2024, 12/2023, 03/18/2023, Additional history exists Phosphate 04/04/2025 04/04/2024, 12/2023, 03/18/2023, Additional history exists Nephrology Referral [...] Not on filedocumented as of this encounter Care Teams Nitroglycerin Neutralizer Relationship Specialty Start Date End Date Carlos Madden DO [address] [place] [address] PCP - General Family Medicine 10/08/22 documented as of this encounter
--- OUTSIDE RECORDS SUMMARY | 2024-06-29 00:22 | External Medical Summary | Summary of Care ---
Author Name Unknown Organization [facility] Address [address] [place] [address] Phone [phone] Care Team Providers Care Balling Head Tender Name Role Phone Cecilia Madden Primary Care Provider Reason for Referral * Evaluate & Treat - Unlimited Visits (Within 10 days (routine)) - Authorized Specialty Diagnoses / Procedures Referred By José Manuel martin Referred To Contact [facility] Transplant Surgery Diagnoses Essential hypertension CKD (chronic kidney disease) stage 4, GFR 15-29 ml/min ([facility]) Chico Vaughn MD [address] [place] [address] Referral ID Status Reason Start Date Expiration Date Visits Requested Visits Authorized [id number] Authorized Specialty Services Required 04/05/2024 999 999 Question Answer Referral Priority Within 10 days (routine) Where should this appointment be scheduled? [facility] What is the patient being referred for? Solid Organ Transplant Evaluation Comments Please call milton Stacy @ [phone] or Satish @ [phone] to arrange apt Reason for Visit * Reason Onset Date Comments Test Results 04/05/2024 Encounter Details Date Type Department Care Team (Late st Contact Info) Description 04/05/2024 Telephone Nephrology, [facility] [address] [place] [address] Chico Vaughn MD [address] [place] [address] Test Results Allergies No known active allergiesdocumented as of this encounter (statuses as of 04/26/2024) Medications Medication Sig Dispensed Refills Start Date End Date Status NovoLOG FlexPen 100 UNIT/ML Subcutaneous Solution Pen-injector (insulin aspart) Inject under the skin . Units as per sliding scale plus carbohydrate count divided by before each meal. (1-4 units) 06/29/2022 Active Metoprolol Tartrate 100 MG Oral Tablet (Lopressor) Take 1 Tablet by mouth in the morning and 1 Tablet before bedtime. 60 Tablet 5 12/28/2022 Active Additional Information Patient taking differently:100 mg OralDaily(AM), Reported on 05/19/2023 Insulin Glargine Solostar 100 UNIT/ML Subcutaneous Solution Pen-injector At 10 am Inject under the skin 16 Units . At 10 am 45 mL 2 02/17/2023 Active Iron-Vitamin C 65-125 MG Oral Tablet (Vitron C)Indications:CKD (chronic kidney disease) stage 4, GFR 15-29 ml/min ([facility]) Take 1 Tablet by mouth in the morning. 03/23/2023 Active methIMAzole 5 MG Oral Tablet (Tapazole)Indicatio ns:Hyperthyroidism Take 0.5 Tablets by mouth in the morning. 45 Tablet 3 04/18/2023 Active Additional Information Patient not taking.Reported on 03/01/2024 [employer]7 Supervisor Frame Assembly Device Use as directed. Active Metoprolol Tartrate 50 MG Oral Tablet (Lopressor) TAKE 1 TABLET (50 MG) BY MOUTH EVERY EVENING. IN ADDITION TO 100MG IN THE MORNING. 60 Tablet 11 05/05/2023 Active Additional Information Patient not taking.Reported on 03/01/2024 Basaglar KwikPen 100 UNIT/ML Subcutaneous Solution Pen-injector At 10 am Inject under the skin 16 Units 45 mL 2 05/09/2023 Active Additional Information Patient not taking.Reported on 03/01/2024 Atorvastatin Calcium 40 MG Oral Tablet (Lipitor)Indication s:Hyperlipidemia with target LDL less than 100 TAKE 1 TABLET BY MOUTH EVERY DAY IN THE MORNING 90 Tablet 3 09/12/2023 Active BD Pen Needle Mini U/F 31G X 5 MM (Insulin Pen Needle)Indications: Type 2 diabetes mellitus with hemoglobin A1c goal of less than 8.0% ([facility]) USE 3-4 TIMES DAILY FOR LONG AND SHORT ACTING INSULIN. 400 Each 2 09/28/2023 Active NIFEdipine ER Osmotic Release 60 MG Oral Tablet Extended Release 24 Hour (Procardia XL) Take 1 Tablet by mouth in the morning. 90 Tablet 1 11/08/2023 Active Eliquis 2.5 MG Oral TabletIndications:P AF (paroxysmal atrial fibrillation) ([facility]) Take 1 Tablet by mouth in the morning and 1 Tablet before bedtime. 180 Tablet 01/18/2024 Active documented as of this encounter (statuses as of 04/26/2024) Active Problems Problem Noted Date Diagnosed Date [...] as of this encounter (statuses as of 04/26/2024) Immunizations Name Administration Dates Next Due Covid-19, Mrna, Lnp-s, Pf, B ivalent, 30 Mcg, IM, 12 yrs and above ([employer]) 07/14/2022 Pneumococcal Conjugate Vaccine, 20-valent (Prevn ar20) [...] encounter Miscellaneous Notes * Telephone Encounter - Terri Suarez LPN - 04/06/2024 9:19 AM EDT Spoke with son Regis Pt is lethagic complaining of UTI s/s was trying to contact PCP but was transferred to nephro dept Son is advised to contact PCP via both MyG and phone * Telephone Encounter - Giovana Parker OSA - 04/06/2024 9:03 AM EDT Transfer to Nephrology * Telephone Encounter - Terri Suarez LPN - 04/05/2024 1:12 PM EDT LMM for Satish to return call to discuss * Telephone Encounter - Terri Suarez LPN - 04/05/2024 9:17 AM EDT ----- Message from Chico Vaughn MD sent at 04/04/2024 4:10 PM EDT ----- Also cbc and iron screen in 1 month * Telephone Encounter - Terri Suarez LPN - 04/05/2024 9:12 AM EDT Son Regis who number is listed in chart is made aware Still would like to proceed with kidney transplant referral Son is aware CKD Nurse Shell Fisherman will reach out in regards to options class Will repeat labs in 1 month to see trend Lab orders/transplant referral are placed in [facility] lab system LM for Satish at [phone] number provided by * Telephone Encounter - Terri Suarez LPN - 04/05/2024 8:58 AM EDT ----- Message from Chico Vaughn MD sent at 04/04/2024 4:10 PM EDT ----- Kidney function continues to decline and is now GFR of 14. She has had this level of GFR when she was in [place]. Continue current medication. Would recommend that she enrolled with ESRD options class further education. Patient's son Satish wanted her to be evaluated for kidney transplant. Can refer to [facility] transplant department. Would recommend to talk with Satish by phone---both for this update as well as for ESRD options class. Also recommend renal panel CBC and Iron screen again in about 1 month to see the trend. documented in this encounter Plan of Treatment Upcoming Encounters Date Type Department Care Team (Late st Contact Info) Description 05/02/2024 1:00 PM EDT Office Visit Cardiology, [facility] [address] [place] [address] Amber Flaherty IV, MD [address] [facility] [place] [address] 07/20/2024 2:20 PM EDT Office Visit Nephrology, [facility] [address] [facility] [place] [address] Chico Vaughn MD [address] [facility] [place] [address] Scheduled Orders Name Type Priority Associated Diagnoses Orde r Schedule CBC WITH WBC DIFFERENTIAL Lab Routine Essential hypertension CKD (chronic kidney disease) stage 4, GFR 15-29 ml/min (HCC) Expected: 04/05/2024 (Approximate), Expires: 04/05/2025 RENAL FUNCTION PANEL Lab Routine Essential hypertension CKD (chronic kidney disease) stage 4, GFR 15-29 ml/min (HCC) Expected: 04/05/2024 (Approximate), Expires: 04/05/2025 IRON SCREEN, INCLUDING TIBC Lab Routine Essential hypertension CKD (chronic kidney disease) stage 4, GFR 15-29 ml/min (HCC) Expected: 04/05/2024 (Approximate), Expires: 04/05/2025 Scheduled Referrals Name Type Priority Associated Diagnoses Orde r Schedule TRANSPLANT SURGERY REFERRAL OP Referral Within 10 days (routine) Essential hypertension CKD (chronic kidney disease) stage 4, GFR 15-29 ml/min (HCC) Ordered: 04/05/2024 Health Maintenance Due Date Last Done Comments DTaP,Tdap,and Td Vaccines (1 - Tdap) 1960 Zoster Vaccines (1 of 2) 1991 DXA Scan 2006 COVID-19 Vaccine (4 - 2022- season) 2023 07/14/2022, 07/14/2022, 11/25/2020, Additional history exists Diabetic Foot Exam 10/19/2023 10/19/2022 HbA1c 02/24/2024 08/25/2023, 0507/2023, 08/18/2022 Depression Screening 04/19/2024 04/19/2023 Influenza Vaccine (FLU shot) (Season Ended) 2024 07/14/2022, 07/14/2022 GFR 10/04/2024 04/04/2024, 050 12/2023, 03/18/2023, Additional history exists Diabetic Eye Exam 11/21/2024 11/21/2023, 11/21/2023 Albumin/Creatinine Ratio 03/01/2025 03/01/2024 Nephrology Referral 03/01/2025 03/01/2024 PTH 03/01/2025 03/01/2024, 02/28, 08/18/2022 Hgb 04/04/2025 04/04/2024, 050 12/2023, 03/18/2023, Additional history exists Phosphate 04/04/2025 04/04/2024, 050 12/2023, 03/18/2023, Additional history exists Pneumococcal Vaccine: 65+ Years Completed 09/10/2022 GARDASIL-HPV IMMUNIZATION SERIES Aged Out No longer eligible based on patient's age to complete this topic Hepatitis B Aged Out No longer eligi ble based on patient's age to complete this topic MENINGOCOCCAL (MENACTRA/MENVEO) Aged Out No longer eligible based on patient's age to complete this topic documented as of this encounter Medical Devices Not on filedocumented as of this encounter Visit Diagnoses Diagnosis Essential hypertension- Primary Unspecified essential hypertension CKD (chronic kidney disease) stage 4, GFR 15-29 ml/min (HCC) Chronic kidney disease, Stage IV (severe) documented in this encounter Care Teams Balling Head Tender Relationship Specialty Start Date End Date Cecilia Madden DO [address] [place] [address] PCP - General Family Medicine 10/08/22 documented as of this encounter
--- OUTSIDE RECORDS SUMMARY | 2024-06-29 00:22 | External Medical Summary | Summary of Care ---
Author Name Unknown Organization [facility] Address [address] [place] [address] Phone [phone] Care Team Providers Care Research Quality Assurance Specialist Name Role Phone Cecilia Madden DO Primary Care Provider Reason for Visit * Reason Comments Outpatient Testing Encounter Details Date Type Department Care Team (Late st Contact Info) Description 04/04/2024 3:00 PM EDT Laboratory Laboratory [facility] [address] [place] [id number] [facility] [address] [place] [address] CKD (chronic kidney disease) stage 4, GFR 15-29 ml/min ([facility]) Allergies No known active allergiesdocumented as of this encounter (statuses as of 04/04/2024) Medications Medication Sig Dispensed Refills Start Date [...] Additional Information Patient not taking.Reported on 03/01/2024 [employer] Compliance Reviewer Device Use as directed. Active Metoprolol Tartrate [...] hemoglobin A1c goal of less than 8.0% ([facility]) USE 3-4 TIMES DAILY FOR LONG AND SHORT ACTING INSULIN. 400 Each 2 09/28/2023 Active NIFEdipine ER Osmotic Release 60 MG Oral Tablet Extended Release 24 Hour (Procardia XL) Take 1 Tablet by mouth in the morning. 90 Tablet 1 11/08/2023 Active Eliquis 2.5 MG Oral TabletIndications:P AF (paroxysmal atrial fibrillation) ([facility]) Take 1 Tablet by mouth in the morning and 1 Tablet before bedtime. 180 Tablet 01/18/2024 Active documented as of this encounter (statuses as of 04/04/2024) Active Problems Problem Noted Date Diagnosed Date [...] as of this encounter (statuses as of 04/04/2024) Immunizations Name Administration Dates Next Due Covid-19, Mrna, Lnp-s, Pf, B ivalent, 30 Mcg, IM, 12 yrs and above ([employer]) 07/14/2022 Pneumococcal Conjugate Vaccine, 20-valent (Prevn ar20) [...] money to get more. Never true 07/20/2022 Sex and Gender Information Value Date Recorded Sex Assigned at Female 07/20/2022 9:29 AM EDT Gender Identity Female 07/20/2022 9:29 AM EDT Sexual Orientation Straight 07/20/2022 9: 29 AM EDT Job Start Date Occupation Industry Not on file Not on file Not on file documented as of this encounter Plan of Treatment Upcoming Encounters Date Type Department Care Team (Late st Contact Info) Description 05/02/2024 1:00 PM EDT Office Visit Cardiology, [facility] [address] [facility] [place] [address] Amber Flaherty IV, MD [address] [place] [address] 07/20/2024 2:20 PM EDT Office Visit Nephrology, [facility] [address] [facility] [place] [address] Chico Vaughn MD [address] [facility] [place] [address] Pending Results Name Type Priority Associated Diagnoses Date /Time RENAL FUNCTION PANEL Lab Routine CKD (chronic kidney disease) stage 4, GFR 15-29 ml/min ([facility]) 04/04/2024 3:13 PM EDT Health Maintenance Due Date Last Done Comments DTaP,Tdap,and Td Vaccines (1 - Tdap) 1960 Zoster Vaccines (1 of 2) 1991 DXA Scan 2006 COVID-19 Vaccine ( season) 2023 07/14/2022, 07/14/2022, 11/25/2020, Additional history exists HbA1c 09/18/2023 03/18/2023, 08/18/2022 Diabetic Foot Exam 10/19/2023 10/19/2022 Depression Screening 04/19/2024 04/19/2023 Influenza Vaccine (FLU shot) (Season Ended) 2024 07/14/2022, 07/14/2022 GFR 09/01/2024 03/01/2024, 02/28, 08/18/2022, Additional history exists Diabetic Eye Exam 11/21/2024 11/21/2023, 11/21/2023 Albumin/Creatinine Ratio 03/01/2025 03/01/2024 Nephrology Referral 03/01/2025 03/01/2024 PTH 03/01/2025 03/01/2024, 02/28, 08/18/2022 Phosphate 03/01/2025 03/01/2024, 02/28, 08/18/2022 Hgb 04/04/2025 04/04/2024, 05/12/2023, 03/18/2023, Additional history exists Pneumococcal Vaccine: 65+ [...] Not on filedocumented as of this encounter Procedures Procedure Name Priority Date/Time Associated Diagnosis Comments DIFFERENTIAL, AUTOMATED Routine 04/04/2024 3:13 PM EDT CKD (chronic kidney disease) stage 4, GFR 15-29 ml/min (HCC) CBC Routine 04/04/2024 3:13 PM EDT CKD (chronic kidney disease) stage 4, GFR 15-29 ml/min (HCC) CBC Routine 04/04/2024 3:13 PM EDT CKD (chronic kidney disease) stage 4, GFR 15-29 ml/min (HCC) documented in this encounter Results * DIFFERENTIAL, AUTOMATED (04/04/2024 3:13 PM EDT) WBC 6.75 4.00 - 10.80 K/uL 04/04/2024 3:18 PM EDT [facility] [place] 56-02 Neutrophils % 63.6 40.0 - 75.0 % 04/04/2024 3:18 PM EDT [facility] [place] 56-02 Lymphocytes % 26.5 18.0 - 42.0 % 04/04/2024 3:18 PM EDT [facility] [place] 56-02 Monocytes % 7.7 1.0 - 11.0 % 04/04/2024 3:18 PM EDT [facility] [place] 56-02 Eosinophils % 1.3 0.0 - 6.0 % 04/04/2024 3:18 PM EDT [facility] [place] 56-02 Basophils % 0.9 0.0 - 2.0 % 04/04/2024 3:18 PM EDT [facility] [place] 56-02 Absolute Neutrophils 4.29 1.80 - 7.70 K/uL 04/04/2024 3:18 PM EDT [facility] [place] 56-02 Absolute Lymphocytes 1.79 1.00 - 4.80 K/ul 04/04/2024 3:18 PM EDT [facility] Absolute Monocytes 0.52 0.00 - 1.10 K/uL 04/04/2024 3:18 PM EDT [facility] Absolute Eosinophils 0.09 0.00 - 0.70 K/uL 04/04/2024 3:18 PM EDT [facility] Absolute Basophils 0.06 0.00 - 0.20 K/uL 04/04/2024 3:18 PM EDT [facility] Blood Venous blood specimen / Unknown Venipuncture / Unknown 04/04/2024 3:13 PM EDT 04/04/2024 3:13 PM EDT Chico Vaughn MD LAB BLOOD ORDERABLES [facility] [address] [place] [address] * (ABNORMAL) CBC (04/04/2024 3:13 PM EDT) WBC 6.75 4.00 - 10.80 K/uL 04/04/2024 3:18 PM EDT [facility] RBC 3.37 3.85 - 5.15 M/uL 04/04/2024 3:18 PM EDT [facility] HGB 9.6(L) 12.0 - 15.3 g/dL 04/04/2024 3:18 PM EDT [facility] HCT 30.7(L) 36.0 - 45.2 % 04/04/2024 3:18 PM EDT [facility] MCV 91.1 81.5 - 97.5 fL 04/04/2024 3:18 PM EDT [facility] MCH 28.5 27.0 - 34.0 pg 04/04/2024 3:18 PM EDT [facility] MCHC 31.3 32.0 - 36.0 g/dL 04/04/2024 3:18 PM EDT [facility] 56 RDW 12.8 11.5 - 15.5 % 04/04/2024 3:18 PM EDT [facility] PLT 171 140 - 400 K/uL 04/04/2024 3:18 PM EDT [facility] MPV 11.7 6.6 - 11.1 fL 04/04/2024 3:18 PM EDT [facility] Blood Venous blood specimen / Unknown Venipuncture / Unknown 04/04/2024 3:13 PM EDT 04/04/2024 3:13 PM EDT Chico Vaughn MD LAB BLOOD ORDERABLES [facility] [address] [facility] [address] documented in this encounter Visit Diagnoses Diagnosis CKD (chronic kidney disease) stage 4, GFR 15-29 ml/min (HCC) Chronic kidney disease, Stage IV (severe) documented in this encounter Care Teams Research Quality Assurance Specialist Relationship Specialty Start Date End Date Cecilia Madden DO [address] [facility] [place] [address] PCP - General Family Medicine 10/08/22 documented as of this encounter
--- OUTSIDE RECORDS SUMMARY | 2024-06-29 00:22 | External Medical Summary | Summary of Care ---
Author Name Unknown Organization [facility] Address [address] [place] [address] Phone [phone] Care Team Providers Care Capture Manager Name Role Phone Cecilia Madden DO Primary Care Provider Reason for Visit * Reason Onset Date Comments Health Maintenance 04/24/2024 Encounter Details Date Type Department Care Team (Late st Contact Info) Description 04/24/2024 Telephone Family Practice [facility] [address] [place] [address] Cecilia Madden DO [address] [place] [address] Health Maintenance Allergies No known active allergiesdocumented as of this encounter (statuses as of 04/24/2024) Medications Medication Sig Dispensed Refills Start Date [...] Additional Information Patient not taking.Reported on 03/01/2024 [employer] Data Assistant Device Use as directed. Active Metoprolol Tartrate [...] hemoglobin A1c goal of less than 8.0% ([facility]) USE 3-4 TIMES DAILY FOR LONG AND SHORT ACTING INSULIN. 400 Each 2 09/28/2023 Active NIFEdipine ER Osmotic Release 60 MG Oral Tablet Extended Release 24 Hour (Procardia XL) Take 1 Tablet by mouth in the morning. 90 Tablet 1 11/08/2023 Active Eliquis 2.5 MG Oral TabletIndications:P AF (paroxysmal atrial fibrillation) ([facility]) Take 1 Tablet by mouth in the morning and 1 Tablet before bedtime. 180 Tablet 01/18/2024 Active documented as of this encounter (statuses as of 04/24/2024) Active Problems Problem Noted Date Diagnosed Date [...] as of this encounter (statuses as of 04/24/2024) Immunizations Name Administration Dates Next Due Covid-19, Mrna, Lnp-s, Pf, B ivalent, 30 Mcg, IM, 12 yrs and above ([employer]) 07/14/2022 Pneumococcal Conjugate Vaccine, 20-valent (Prevn ar20) [...] encounter Miscellaneous Notes * Telephone Encounter - Arlene Gonzalez LPN - 04/24/2024 10:04 AM EDT Care Gaps Comprehensive Care Outreach Last Office/Telemedicine Visit: 04/19/2023 (in office), 06/29/2022 (telemedicine) Next Office Visit: Visit date not found Hemoglobin AIC Results: Lab Results Component Value Date/Time HEMOGLOBIN A1C - [facility] 7.8 (H) 03/18/2023 03:23 PM HEMOGLOBIN A1C - [facility] 8.1 (H) 08/18/2022 03:25 PM BP Readings from Last 1 Encounters: 03/01/24 134/88 Reviewed Health Maintenance below: Health Maintenance Topic Date Due DTaP,Tdap,and Td Vaccines (1 - Tdap) Never done Zoster Vaccines (1 of 2) Never done DXA Scan Never done COVID-19 Vaccine ( - season) 2023 Diabetic Foot Exam 10/19/2023 HbA1c 02/24/2024 Depression Screening 04/19/2024 Influenza Vaccine (FLU shot) (Season Ended) 2024 GFR 10/04/2024 Ov Labs dexa [facility] She is having surgery tomorrow Care Gap Outreach Action Taken: Outreach not indicated documented in this encounter Plan of Treatment Upcoming Encounters Date Type Department Care Team (Late st Contact Info) Description 05/02/2024 1:00 PM EDT Office Visit Cardiology, [facility] [address] [place] [address] Amber Flaherty IV, MD [address] [facility] [place] [address] 07/20/2024 2:20 PM EDT Office Visit Nephrology, [facility] [address] [place] [address] Chico Vaughn MD [address] [place] [address] Health Maintenance Due Date Last Done Comments DTaP,Tdap,and Td Vaccines (1 - Tdap) 1960 Zoster Vaccines (1 of 2) 1991 DXA Scan 2006 COVID-19 Vaccine (4 - season) 2023 07/14/2022, 07/14/2022, 11/25/2020, Additional history exists Diabetic Foot Exam 10/19/2023 10/19/2022 HbA1c 02/24/2024 08/25/2023, 02/28, 08/18/2022 Depression Screening 04/19/2024 04/19/2023 Influenza Vaccine (FLU shot) (Season Ended) 2024 07/14/2022, 07/14/2022 GFR 10/04/2024 04/04/2024, 050 12/2023, 03/18/2023, Additional history exists Diabetic Eye Exam 11/21/2024 11/21/2023, 11/21/2023 Albumin/Creatinine Ratio 03/01/2025 03/01/2024 Nephrology Referral 03/01/2025 03/01/2024 PTH 03/01/2025 03/01/2024, 02/28, 08/18/2022 Hgb 04/04/2025 04/04/2024, 05/0 12/2023, 03/18/2023, Additional history exists Phosphate 04/04/2025 04/04/2024, 05/0 12/2023, 03/18/2023, Additional history exists Pneumococcal Vaccine: [...] filedocumented as of this encounter Care Teams Capture Manager Relationship Specialty Start Date End Date Cecilia Madden DO [facility] [place] [address] PCP - General Family Medicine 10/08/22 documented as of this encounter
--- OUTSIDE RECORDS SUMMARY | 2024-06-29 00:22 | External Medical Summary | Summary of Care ---
Author Name Unknown Organization [facility] Address [address] [facility] [place] [address] Phone [phone] Care Team Providers Care Early Childhood Director Name Role Phone Cecilia Madden Primary Care Provider Reason for Visit * Reason Onset Date Comments Advice 05/09/2024 Encounter Details Date Type Department Care Team (Late st Contact Info) Description 05/09/2024 Telephone [facility]rology[facility] [address] [place] [address] Chico Vaughn MD [address] [facility] [place] [address] Advice Allergies No known active allergiesdocumented as of this encounter (statuses as of 05/11/2024) Medications Medication Sig Dispensed Refills Start Date [...] 03/23/2023 Active methIMAzole 5 MG Oral Tablet (Tapazole)Indicat ions:Hyperthyroid ism Take 0.5 Tablets by mouth in the morning. 45 Tablet 3 04/18/2023 Active Additional Information Patient not taking.Reported on 03/01/2024 [employer] Religious Activities Director Device Use as directed. Act shi Metoprolol Tartrate 50 MG Oral Tablet (Lopressor) [...] the morning. 90 Tablet 1 11/08/2023 Active Sodium Bicarbonate 650 MG Oral TabletIndications :CKD (chronic kidney disease) stage 4, GFR 15-29 ml/min (HCC) Take 2 Tablets by mouth in the morning and 2 Tablets before bedtime. 120 Tablet 11 05/11/2024 Active Eliquis 2.5 MG Oral TabletIndications :PAF (paroxysmal atrial fibrillation) (HCC) Take 1 Tablet by mouth in the morning and 1 Tablet before bedtime. 180 Tablet 01/18/2024 Discontinue d(Patient preference/ discontinua tion) documented as of this encounter (statuses as of 05/11/2024) Active Problems Problem Noted Date Diagnosed Date [...] as of this encounter (statuses as of 05/11/2024) Immunizations Name Administration Dates Next Due Covid-19, Mrna, Lnp-s, Pf, B ivalent, 30 Mcg, IM, 12 yrs and above ([employer]) 07/14/2022 Pneumococcal Conjugate Vaccine, 20-valent (Prevn ar20) [...] encounter Miscellaneous Notes * Telephone Encounter - Earnestine Dexter RN - 05/11/2024 3:29 PM EDT TE with pt's . He is aware RX is being sent to [facility] for sodium bicarb. He is aware of follow up labs and that Dr Vaughn would like them to keep appointment with transplant. * Telephone Encounter - Cassidy Rizo OSA - 05/11/2024 3:22 PM EDT Patient's called scheduling line on 05/11/24 at 3:20 PM. Concerned that he will be running out of the Sodium Bicarbonate for Flora. He has not heard back about this yet and was hoping somebody could assist. * Telephone Encounter - Terri Suarez LPN - 05/09/2024 3:55 PM EDT Spoke with with Pt/ Pt had watch man like procedure in [place] done She can now be off of Eliquiswhich is removed from med list per pt request Pt has been on the Sodium Carbonate 650mg 2 tabs in AM and 2 tabs in PM from kidney doctor in [place] would like refill sent [facility] I do not see on med list Pt / is aware will need Dr Vaughn's approval for this Also would like to know when next labs are due Pt will keep apt on 05/15/24 with transplant to at least see what they have to offer * Telephone Encounter - Faye Lozano OSA - 05/09/2024 2:03 PM EDT Pt is currently taking Sodium carbonate 650 mg 2 in the morning and 2 at night. Is getting low on this RX and is asking if pt should still be taking this and if you can please prescribe it. Was [place] RX by [place] Pt is scheduled for a future ladan 05/15 with kidney transplant. Asking if this appointment is needed pt had blood drawn in [place] (pt had an amulet procedure) on 04/25 complete egfr 16.5 and later was 16.6 , would like to know when she should repeat labs. documented in this encounter Plan of Treatment Upcoming Encounters Date Type Department Care Team (Late st Contact Info) Description 05/15/2024 11:00 AM EDT Office Visit Transplant Clinic, [place] [address] [place] [address] Mikki Byrne MD [address] [place] [address] Ayad Cuadra MD [address] [place] [address] Nurse [facility] [address] [place] [address] Naa Nina LSW [address] [place] [address] 05/15/2024 3:00 PM EDT Laboratory Outpatient Laboratory, [place] [address] [place] [address] [place] [facility] [address] [place] [address] 05/15/2024 3:30 PM EDT Appointment Radiology, [place] [address] [place] [id number] 07/20/2024 2:20 PM EDT Office Visit Nephrology, [place] [address] [facility] [place], [place] [address] Chico Vaughn MD [address] [facility] [place] [address] Scheduled Orders Name Type Priority Associated Diagnoses Orde r Schedule RENAL FUNCTION PANEL Lab Routine CKD (chronic kidney disease) stage 4, GFR 15-29 ml/min (HCC) Expected: 05/12/2024 (Approximate), Expires: 05/11/2025 Health Maintenance Due Date Last Done Comments DTaP,Tdap,and Td Vaccines (1 - Tdap) 1960 Zoster Vaccines (1 of 2) 1991 DXA Scan 2006 Diabetic Foot Exam 10/19/2023 10/19/2022 COVID-19 Vaccine ( season) 2023 08/01/2023, 07/14/2022, 07/14/2022, Additional history exists HbA1c 02/24/2024 08/25/2023, 02/28, 08/18/2022 Depression Screening 04/19/2024 04/19/2023 Influenza Vaccine (FLU shot) (#1) 2024 08/01/2023, 07/14/2022, 07/14/2022, Additional history exists GFR 10/25/2024 04/25/2024, 04/01, 04/04/2024, Additional history exists Diabetic Eye Exam 11/21/2024 11/21/2023, , 12/01/2021, Additional history exists Albumin/Creatinine Ratio 03/01/2025 03/01/2024 Nephrology Referral 03/01/2025 03/01/2024 PTH 03/01/2025 03/01/2024, 02/28, 08/18/2022 Hgb 04/04/2025 04/04/2024, 0512/2023, 03/18/2023, Additional history exists Phosphate 04/04/2025 04/04/2024, 05/0 12/2023, 03/18/2023, Additional history exists Pneumococcal Vaccine: 65+ Years Completed 09/10/2022 HPV [...] (severe) documented in this encounter Care Teams Early Childhood Director Relationship Specialty Start Date End Date Cecilia Madden DO [address] [place] [address] PCP - General Family Medicine 10/08/22 documented as of this encounter
--- OUTSIDE RECORDS SUMMARY | 2024-06-29 00:22 | External Medical Summary | Summary of Care ---
Author Name Unknown Organization [facility] Address [address] [place] [address] Phone [phone] Care Team Providers Care Medical Pathology Teacher Name Role Phone Arlene Maddenbradley RegaladoNunu Primary Care Provider Encounter Details Date Type Department Care Team (Late st Contact Info) Description 04/09/2024 Abstract Transplant Clinic, [place] [address] [place], [place] [id number] Stefanie Og, [place] [address] Type 2 diabetes mellitus with stage 4 chronic kidney disease, with long-term current use of insulin ([facility])*; Essential hypertension Allergies No known active allergiesdocumented as of this encounter (statuses as of 04/09/2024) Medications Medication Sig Dispensed Refills Start Date [...] Additional Information Patient not taking.Reported on 03/01/2024 [employer] G7 Family Day Care Provider Device Use as directed. Active Metoprolol Tartrate [...] hemoglobin A1c goal of less than 8.0% ([facility]) USE 3-4 TIMES DAILY FOR LONG AND SHORT ACTING INSULIN. 400 Each 2 09/28/2023 Active NIFEdipine ER Osmotic Release 60 MG Oral Tablet Extended Release 24 Hour (Procardia XL) Take 1 Tablet by mouth in the morning. 90 Tablet 1 11/08/2023 Active Eliquis 2.5 MG Oral TabletIndications:P AF (paroxysmal atrial fibrillation) ([facility]) Take 1 Tablet by mouth in the morning and 1 Tablet before bedtime. 180 Tablet 01/18/2024 Active documented as of this encounter (statuses as of 04/09/2024) Active Problems Problem Noted Date Diagnosed Date [...] as of this encounter (statuses as of 04/09/2024) Immunizations Name Administration Dates Next Due Covid-19, Mrna, Lnp-s, Pf, B ivalent, 30 Mcg, IM, 12 yrs and above ([employer]) 07/14/2022 Pneumococcal Conjugate Vaccine, 20-valent (Prevn ar20) [...] on file documented as of this encounter Progress Notes * Antwan Ashby OSA - 04/09/2024 10:54 AM EDT Will add patient to next kidney committee for referral discussion. Would like to confirm ok to moveforward due to age. documented in this encounter Plan of Treatment Upcoming Encounters Date Type Department Care Team (Late st Contact Info) Description 05/02/2024 1:00 PM EDT Office Visit Cardiology, [facility] [address] [place] [address] Amber Flaherty IV, MD [address] [facility] [place] [address] 07/20/2024 2:20 PM EDT Office Visit Nephrology, [place] [address] [facility] [place] [address] Chico Vaughn MD [address] [facility] [place] [address] Health Maintenance Due Date Last Done Comments DTaP,Tdap,and Td Vaccines (1 - Tdap) 1960 Zoster Vaccines (1 of 2) 1991 DXA Scan 2006 COVID-19 Vaccine ( season) 2023 07/14/2022, 07/14/2022, 11/25/2020, Additional history exists Diabetic Foot Exam 10/19/2023 10/19/2022 HbA1c 02/24/2024 08/25/2023, 02/28, 08/18/2022 Depression Screening 04/19/2024 04/19/2023 Influenza Vaccine (FLU shot) (Season Ended) 2024 07/14/2022, 07/14/2022 GFR 10/04/2024 04/04/2024, 05/0 12/2023, 03/18/2023, Additional history exists Diabetic Eye Exam 11/21/2024 11/21/2023, 11/21/2023 Albumin/Creatinine Ratio 03/01/2025 03/01/2024 Nephrology Referral 03/01/2025 03/01/2024 PTH 03/01/2025 03/01/2024, 02/28, 08/18/2022 Hgb 04/04/2025 04/04/2024, 05/0 12/2023, 03/18/2023, Additional history exists Phosphate 04/04/2025 04/04/2024, 0512/2023, 03/18/2023, Additional history exists Pneumococcal Vaccine: 65+ [...] as of this encounter Visit Diagnoses Diagnosis Type 2 diabetes mellitus with stage 4 chronic kidney disease, with long-term current use of insulin (HCC)- Primary Essential hypertension Unspecified essential hypertension documented in this encounter Care Teams Medical Pathology Teacher Relationship Specialty Start Date End Date Cecilia Madden DO [address] [place] [address] PCP - General Family Medicine 10/08/22 documented as of this encounter
--- OUTSIDE RECORDS SUMMARY | 2024-06-29 00:22 | External Medical Summary | Summary of Care ---
Author Name Unknown Organization [facility] Address [address] [place] [address] Phone [phone] Care Team Providers Care Cashier Courtesy Booth Name Role Phone Cecilia Madden Primary Care Provider Reason for Referral * Evaluate & Treat - Unlimited Visits (Within 3 days (urgent)) - Pending Review Specialty Diagnoses / Procedures Referred By José Manuel martin Referred To Contact Dietitian / Nutrition Services Diagnoses CKD (chronic kidney disease) stage 4, GFR 15-29 ml/min ([facility]) Mikki Byrne MD [address] [place] [address] Referral ID Status Reason Start Date Expiration Date Visits Requested Visits Authorized [id number] Pending Review Specialty Services Required 05/15/2024 999 [...] 11:00 AM EDT Office Visit Transplant Clinic, [place] [address] [place] [address] Mikki Byrne MD [address] [place] [address] Ayad Cuadra MD [address] [place] [address] Nurse [facility] [address] [place] [address] Naa Nina, SALES SERVICE TECHNICIAN [address] [place] [address] CKD (chronic kidney disease) stage 4, GFR 15-29 ml/min ([facility])* Allergies No known active allergiesdocumented as of this encounter (statuses as of 05/15/2024) Medications Medication Sig Dispensed Refills Start Date [...] kidney disease) stage 4, GFR 15-29 ml/min ([facility]) Take 1 Tablet by mouth in the morning. 3 Active methIMAzole 5 MG Oral Tablet (Tapazole)Indica tions:Hyperthyro idism Take 0.5 Tablets by mouth in the morning. 45 Tablet 3 3 Active Additional Information Patient not taking.Reported on 03/01/2024 [employer] G7 Pals Specialist Device Use as directed. Act shi Basaglar [...] hemoglobin A1c goal of less than 8.0% ([facility]) USE 3-4 TIMES DAILY FOR LONG AND SHORT ACTING INSULIN. 400 Each 2 3 Active Sodium Bicarbonate 650 MG Oral TabletIndication s:CKD (chronic kidney disease) stage 4, GFR 15-29 ml/min ([facility]) Take 2 Tablets by mouth in the morning and 2 Tablets before bedtime. 120 Tablet 11 4 Active Metoprolol Tartrate 50 MG Oral Tablet (Lopressor) TAKE 1 TABLET (50 MG) BY MOUTH EVERY EVENING. IN ADDITION TO 100MG IN THE MORNING. 60 Tablet 11 3 05/15/20 24 Discontinued(Dc dication List Clean Up) NIFEdipine ER Osmotic Release 60 MG Oral Tablet Extended Release 24 Hour (Procardia XL) Take 1 Tablet by mouth in the morning. 90 Tablet 1 4 05/15/20 24 Discontinued documented as of this encounter (statuses as of 05/15/2024) Active Problems Problem Noted Date Diagnosed Date [...] as of this encounter (statuses as of 05/15/2024) Immunizations Name Administration Dates Next Due Covid-19, Mrna, Lnp-s, Pf, B ivalent, 30 Mcg, IM, 12 yrs and above ([employer]) 07/14/2022 Pneumococcal Conjugate Vaccine, 20-valent (Prevn ar20) [...] documented in this encounter Progress Notes * Mikki Byrne MD - 05/15/2024 1:03 PM EDT Transplant Evaluation Flora is a 83 year old female here for evaluation to be a transplant recipient, referred by: Ch[place] Vaughn MD I will communicate with the referring [...] g already established while in [facility]. CKD 4 for atleast few years now [...] Stones: No Malignancy: Meningioma Education/work: Musician Primary special needs caregiver: Extended family Back up special needs caregiver: Past Medical History: Diagnosis Date HLD (hyperlipidemia) [...] 1 Tablet by mouth in the morning. [employer] G7 Pals Specialist Device Use as directed. Atorvastatin Calcium 40 [...] afib, hypothyroidism, HFrEF, HTN, meningioma s/p resection 2015, hyperthyroidism who is aunfortunately not a candidate for Kidney transplant. We had the opportunity to discuss the following, specific for this patient: 1) Need of lifelong immunosuppression 2) Higher chances of opportunistic infections 3) Higher risk of certain types of cancers - skin, urologic and PTLD 4) Chances of worsening of diabetes post transplant./ Chances of NODAT 5) Reoccurance of pauma disease. Recommend: 1) Patient to have detailed discussion with her Supervisor Floor Assembly about dialysis options including home dialysis vs [...] FRACP Transplant Nephrology 05/15/2024 1:03 PM Transplant Clinic[address] [address] * Stefanie Og RN - 05/15/2024 11:30 AM EDT NAME:Flora Garcia DATE of :1940 SEX:female SOCIAL SECURITY #:(Not on file) Referring Supervisor Floor Assembly:Dr. Chico Vaughn Type of Dialysis: Pre-dialysis Primary [...] on 03/01/2024) 45 Tablet 3 Dexcom G7 Pals Specialist Device Use as directed. Basaglar KwikPen 100 [...] regarding: The importance of discussing this with senior information security architect at [facility], local senior information security architect, and family 10) Please return [facility] transplant office the consent form after a [...] Care Team (Late st Contact Info) Description 07/20/2024 2:20 PM EDT Office Visit Nephrology, [facility] [address] [place] [address] Chico Vaughn MD [address] [place] [address] Scheduled Referrals Name Type Priority Associated Diagnoses Orde r Schedule NUTRITION-CLINICAL DIETITIAN REFERRAL OP Referral Within 3 days (urgent) CKD (chronic kidney disease) stage 4, GFR 15-29 ml/min (HCC) Ordered: 05/15/2024 Health Maintenance Due Date Last Done Comments DTaP,Tdap,and Td Vaccines (1 - Tdap) 1960 Zoster Vaccines (1 of 2) 1991 DXA Scan 2006 Diabetic Foot Exam 10/19/2023 10/19/2022 COVID-19 Vaccine (5 - 2022- season) 2023 08/01/2023, 07/14/2022, 07/14/2022, Additional history exists HbA1c 02/24/2024 08/25/2023, 02/28, 08/18/2022 Depression Screening 04/19/2024 04/19/2023 Influenza Vaccine (FLU shot) (#1) 2024 08/01/2023, 07/14/2022, 07/14/2022, Additional history exists GFR 10/25/2024 04/25/2024, 04/01, 04/04/2024, Additional history exists Diabetic Eye Exam 11/21/2024 11/21/2023, , 12/01/2021, Additional history exists Albumin/Creatinine Ratio 03/01/2025 03/01/2024 PTH 03/01/2025 03/01/2024, 1 07/2023, 08/18/2022 Hgb 04/04/2025 04/04/2024, 05/0 12/2023, 03/18/2023, Additional history exists Phosphate 04/04/2025 04/04/2024, 05/0 12/2023, 03/18/2023, Additional history exists Nephrology Referral [...] (severe) documented in this encounter Care Teams Cashier Courtesy Booth Relationship Specialty Start Date End Date Cecilia Madden DO [address] [place] [address] PCP - General Family Medicine 10/08/22 documented as of this encounter
--- OUTSIDE RECORDS SUMMARY | 2024-06-29 00:22 | External Medical Summary | Summary of Care ---
Author Name Unknown Organization [facility] Address [address] [place] [address] Phone [phone] Care Team Providers Care Sterile Supervisor Name Role Phone Cecilia Madden Primary Care Provider Reason for Referral * Precert (Within 10 days (routine)) - Authorized Specialty Diagnoses / Procedures Referred By José Manuel martin Referred To Contact Radiology Diagnoses Type 2 diabetes mellitus with diabetic chronic kidney disease (HCC) Pre-transplant evaluation for ESRD (end stage renal disease) Procedures CT ABD/PELVIS WO IV/ORAL CONTRAST Ayad Cuadra MD [address] [place] [address] Referral ID Status Reason Start Date Expiration Date V isits Requested Visits Authorized [id number] Authorized 05/04/2024 999 999 Reason for Visit * Reason Onset Date Comments Information 04/27/2024 Initial review Encounter Details Date Type Department Care Team (Late st Contact Info) Description 04/27/2024 Telephone Transplant Surgery [facility] [address] [place] [phone] Clarisse Garcia, RN [address] [place] [address] Information (Initial review) Allergies No known active allergiesdocumented as of this encounter (statuses as of 04/27/2024) Medications Medication Sig Dispensed Refills Start Date [...] Additional Information Patient not taking.Reported on 03/01/2024 [employer] Big Data Solutions Architect Device Use as directed. Active Metoprolol Tartrate [...] MG Oral TabletIndications:P AF (paroxysmal atrial fibrillation) (HCC) Take 1 Tablet by mouth in the morning and 1 Tablet before bedtime. 180 Tablet 01/18/2024 Active documented as of this encounter (statuses as of 04/27/2024) Active Problems Problem Noted Date Diagnosed Date [...] as of this encounter (statuses as of 04/27/2024) Immunizations Name Administration Dates Next Due Covid-19, Mrna, Lnp-s, Pf, B ivalent, 30 Mcg, IM, 12 yrs and above (Pfizer) 07/14/2022 Pneumococcal Conjugate Vaccine, 20-valent (Prevn ar20) [...] encounter Miscellaneous Notes * Telephone Encounter - Clarisse Garcia RN - 04/27/2024 11:30 AM EDT Referred by Dr Vaughn Committee review 04/11/24 Committee Review Decision: Pending Relative Contraindications: Age >= 80 years Absolute Contraindications: Committee Discussion Details: Discussion held on referral for a pre-renal transplant evaluation onMs. Garcia. At this time, the patient is 83-yrs of age and is still pre-dialysis. She has been referred by Dr. Vaughn for transplant consideraiton as she has family members willing to donate. It was the decision of the team that she can be schedule for an evaluation once financial clearance has been accomplished. Available records reviewed: Patient is a 83 year old pre dialysis GFR 20. Has living donor will bring in for evaluation Diagnosis: DM/HTN Dialysis: PRE Living donor: YES We will schedule for initial kidney evaluation at [facility] : Test completed: 1. Echo 2. EKG 3. Colon 4. Mamm 5. PAP nln 6. CXR Test needed: 1. labs 2. CT ab pelvis 3. ABIs 4. STRESS/cardiac clearance Will schedule patient for evaluation. Clarisse Garcia RN documented in this encounter Plan of Treatment Upcoming Encounters Date Type Department Care Team (Late st Contact Info) Description 05/02/2024 1:00 PM EDT Office Visit Cardiology, [facility] [address] [facility] [place] [address] Amber Flaherty IV, MD [address] [place] [address] 07/20/2024 2:20 PM EDT Office Visit Nephrology, [facility] [address] [place] [address] Ch[place] Vaughn MD [address] [facility] [place] [id number] Scheduled Orders Name Type Priority Associated Diagnoses Orde r Schedule PHOSPHORUS Lab STAT Type 2 diabetes mellitus with diabetic chronic kidney disease (HCC) Pre-transplant evaluation for ESRD (end stage renal disease) Expected: 05/01/2024 (Approximate), Expires: 04/04/2025 QUANTIFERON TB GOLD PLUS Lab STAT Type 2 diabetes mellitus with diabetic chronic kidney disease (HCC) Pre-transplant evaluation for ESRD (end stage renal disease) Expected: 05/01/2024 (Approximate), Expires: 04/04/2025 CBC WITH WBC DIFFERENTIAL Lab STAT Type 2 diabetes mellitus with diabetic chronic kidney disease (HCC) Pre-transplant evaluation for ESRD (end stage renal disease) Expected: 05/01/2024 (Approximate), Expires: 04/04/2025 LIPID PANEL WITHOUT DIRECT LDL Lab STAT Type 2 diabetes mellitus with diabetic chronic kidney disease (HCC) Pre-transplant evaluation for ESRD (end stage renal disease) Expected: 05/01/2024 (Approximate), Expires: 04/04/2025 HIV ANTIGEN & ANTIBODY SCREEN W/ CONFIRMATION Lab STAT Type 2 diabetes mellitus with diabetic chronic kidney disease (HCC) Pre-transplant evaluation for ESRD (end stage renal disease) Expected: 05/01/2024 (Approximate), Expires: 04/04/2025 CMV IGG ANTIBODY Lab STAT Type 2 diabetes mellitus with diabetic chronic kidney disease (HCC) Pre-transplant evaluation for ESRD (end stage renal disease) Expected: 05/01/2024 (Approximate), Expires: 04/04/2025 EBV VIRAL CAPSID ANTIGEN IGG ANTIBODY Lab STAT Type 2 diabetes mellitus with diabetic chronic kidney disease (HCC) Pre-transplant evaluation for ESRD (end stage renal disease) Expected: 05/01/2024 (Approximate), Expires: 04/04/2025 RPR Lab STAT Type 2 diabetes mellitus with diabetic chronic kidney disease (HCC) Pre-transplant evaluation for ESRD (end stage renal disease) Expected: 05/01/2024 (Approximate), Expires: 04/04/2025 HEPATITIS B SURFACE ANTIGEN Lab STAT Type 2 diabetes mellitus with diabetic chronic kidney disease (HCC) End stage renal disease (HCC) Pre-transplant evaluation for ESRD (end stage renal disease) Expected: 05/01/2024 (Approximate), Expires: 04/04/2025 HEPATITIS B SURFACE ANTIBODY Lab STAT Type 2 diabetes mellitus with diabetic chronic kidney disease (HCC) Pre-transplant evaluation for ESRD (end stage renal disease) Expected: 05/01/2024 (Approximate), Expires: 04/04/2025 HEPATITIS B CORE ANTIBODIES IGG AND IGM Lab STAT Type 2 diabetes mellitus with diabetic chronic kidney disease (HCC) End stage renal disease (HCC) Pre-transplant evaluation for ESRD (end stage renal disease) Expected: 05/01/2024 (Approximate), Expires: 04/04/2025 HEPATITIS C ANTIBODY SCREEN WITH PROGRESSION TO HEPATITIS C RNA QUANTITATIVE Lab STAT Type 2 diabetes mellitus with diabetic chronic kidney disease (HCC) Pre-transplant evaluation for ESRD (end stage renal disease) Expected: 05/01/2024 (Approximate), Expires: 04/04/2025 VARICELLA-ZOSTER VIRUS ANTIBODY, IGG Lab STAT Type 2 diabetes mellitus with diabetic chronic kidney disease (HCC) Pre-transplant evaluation for ESRD (end stage renal disease) Expected: 05/01/2024 (Approximate), Expires: 04/04/2025 APTT Lab STAT Type 2 diabetes mellitus with diabetic chronic kidney disease (HCC) Pre-transplant evaluation for ESRD (end stage renal disease) Expected: 05/01/2024 (Approximate), Expires: 04/04/2025 PT INR Lab STAT Type 2 diabetes mellitus with diabetic chronic kidney disease (HCC) Pre-transplant evaluation for ESRD (end stage renal disease) Expected: 05/01/2024 (Approximate), Expires: 04/04/2025 COMPREHENSIVE METABOLIC PANEL Lab STAT Type 2 diabetes mellitus with diabetic chronic kidney disease (HCC) Pre-transplant evaluation for ESRD (end stage renal disease) Expected: 05/01/2024 (Approximate), Expires: 04/04/2025 TRANSPLANT ABO/RH Lab STAT Type 2 diabetes mellitus with diabetic chronic kidney disease (HCC) Pre-transplant evaluation for ESRD (end stage renal disease) Expected: 05/01/2024 (Approximate), Expires: 04/04/2025 TRANSPLANT ABO/RH CONFIRMATION Lab STAT Type 2 diabetes mellitus with diabetic chronic kidney disease (HCC) Pre-transplant evaluation for ESRD (end stage renal disease) Expected: 05/01/2024 (Approximate), Expires: 04/04/2025 RECIPIENT SOLID ORGAN PRE-TRANSPLANT HLA * Lab STAT Type 2 diabetes mellitus with diabetic chronic kidney disease (HCC) Pre-transplant evaluation for ESRD (end stage renal disease) Expected: 05/01/2024 (Approximate), Expires: 04/04/2025 MONTHLY HLA CLASS 1 & 2 W/REFLEX, SOLID ORGAN TRANSPLANT Lab STAT Type 2 diabetes mellitus with diabetic chronic kidney disease (HCC) Pre-transplant evaluation for ESRD (end stage renal disease) Expected: 05/01/2024 (Approximate), Expires: 04/04/2025 PTH Lab STAT Type 2 diabetes mellitus with diabetic chronic kidney disease (HCC) Pre-transplant evaluation for ESRD (end stage renal disease) Expected: 05/01/2024 (Approximate), Expires: 04/04/2025 PROTEIN/ CREATININE RATIO, URINE Lab STAT Type 2 diabetes mellitus with diabetic chronic kidney disease (HCC) Pre-transplant evaluation for ESRD (end stage renal disease) Expected: 05/01/2024 (Approximate), Expires: 04/04/2025 URINALYSIS, REFLEX TO MICROSCOPIC Lab STAT Type 2 diabetes mellitus with diabetic chronic kidney disease (HCC) Pre-transplant evaluation for ESRD (end stage renal disease) Expected: 05/01/2024 (Approximate), Expires: 04/04/2025 CULTURE, URINE, QUANTITATIVE Lab STAT Type 2 diabetes mellitus with diabetic chronic kidney disease (HCC) End stage renal disease (HCC) Pre-transplant evaluation for ESRD (end stage renal disease) Expected: 05/01/2024 (Approximate), Expires: 04/04/2025 VASC ANKLE BRACHIAL INDICES WITHOUT PPG (PAD) Medical Imaging Routine Type 2 diabetes mellitus with diabetic chronic kidney disease (HCC) Pre-transplant evaluation for ESRD (end stage renal disease) Expected: 05/04/2024, Expires: 05/27/2025 CT ABD/PELVIS WO IV/ORAL CONTRAST Medical Imaging Routine Type 2 diabetes mellitus with diabetic chronic kidney disease (HCC) Pre-transplant evaluation for ESRD (end stage renal disease) Expected: 05/04/2024, Expires: 05/27/2025 HEMOGLOBIN A1C Lab STAT Type 2 diabetes mellitus with diabetic chronic kidney disease (HCC) Pre-transplant evaluation for ESRD (end stage renal disease) Expected: 05/01/2024 (Approximate), Expires: 04/04/2025 Health Maintenance Due Date Last Done Comments DTaP,Tdap,and Td Vaccines (1 - Tdap) 1960 Zoster Vaccines (1 of 2) 1991 DXA Scan 2006 COVID-19 Vaccine ( season) 2023 07/14/2022, 07/14/2022, 11/25/2020, Additional history exists Diabetic Foot Exam 10/19/2023 10/19/2022 HbA1c 02/24/2024 08/25/2023, 02/28, 08/18/2022 Depression Screening 04/19/2024 04/19/2023 Influenza Vaccine (FLU shot) (Season Ended) 2024 07/14/2022, 07/14/2022 GFR 10/25/2024 04/25/2024, 04/01, 04/04/2024, Additional history [...] Diagnoses Diagnosis Type 2 diabetes mellitus with diabetic chronic kidney disease (HCC)- Primary Type II or unspecified type diabetes mellitus with renal manifestations, not stated as uncontrolled End stage renal disease (HCC) End stage renal disease Pre-transplant evaluation for ESRD (end stage renal disease) Other specified pre-operative examination documented in this encounter Care Teams Sterile Supervisor Relationship Specialty Start Date End Date Cecilia Madden DO [address] [place] [address] PCP - General Family Medicine 10/08/22 documented as of this encounter
--- OUTSIDE RECORDS SUMMARY | 2024-06-29 00:22 | External Medical Summary | Summary of Care ---
Author Name Unknown Organization [facility] Address [address] [facility] [place] [address] Phone [phone] Care Team Providers Care Log Data Technician Name Role Phone Cecilia Madden Primary Care Provider Reason for Visit * Reason Onset Date Comments Advice 05/09/2024 Encounter Details Date Type Department Care Team (Late st Contact Info) Description 05/09/2024 Telephone NephrologyMiller [address] [place] [address] Chico Vaughn MD [address] [facility] [place] [address] Advice Allergies No known active allergiesdocumented as [...] Additional Information Patient not taking.Reported on 03/01/2024 [employer] Licensed Loan Officer Device Use as directed. Act shi Metoprolol [...] 30 Mcg, IM, 12 yrs and above ([employer] 07/14/2022 Pneumococcal Conjugate Vaccine, 20-valent (Prevn ar20) [...] is aware RX is being sent to [facility] for sodium bicarb. He is aware of [...] tabs in PM from kidney doctor in [place] [facility] [...] prescribe it. Was [place] RX by [place] Pt is scheduled for a future ladan 05/15 with kidney transplant. Asking if this appointment is needed pt had blood drawn in [place] (pt had an amulet procedure) on 04/25 complete egfr 16.5 and later was 16.6 , would like to know when she should repeat labs. documented in this encounter Plan of Treatment Upcoming Encounters Date Type Department Care Team (Late st Contact Info) Description 05/15/2024 11:00 AM EDT Office Visit Transplant Clinic, [place] [address] [place] [address] Mikki Byrne MD [address] [place] [address] Ayad Cuadra MD [address] [place] [address] Nurse [facility] [address] [place] [address] Naa Nina LSW [address] [place] [address] 05/15/2024 3:00 PM EDT Laboratory Outpatient Laboratory, [place] [address] [place] [address] [facility] [address] [place] [address] 05/15/2024 3:30 PM EDT Appointment Radiology, [place] [address] [place] [id number] 07/20/2024 2:20 PM EDT Office Visit Nephrology, [place] [address] [facility] [place], [place] [address] Chico Vaughn MD [address] [facility] [place] [address] Scheduled Orders Name Type Priority Associated Diagnoses [...] (severe) documented in this encounter Care Teams Log Data Technician Relationship Specialty Start Date End Date Cecilia Madden DO [address] [place] [address] PCP - General Family Medicine 10/08/22 documented as of this encounter
--- OUTSIDE RECORDS SUMMARY | 2024-06-29 00:22 | External Medical Summary | Summary of Care ---
Author Name Unknown Organization [facility] Address [address] , [place] Care Team Providers Care Inside Sales Supervisor Name Role Phone Cecilia Madden Primary Care Provider Reason for Visit * Reason Comments Nutritional Services Documentation Encounter Details Date Type Department Care Team (Late st Contact Info) Description 06/27/2024 2:00 PM EDT Scheduled Telephone [facility], [facility] [place] [address] [facility], [address] [place] [address] Krysta Chowdhury, RDN [address] [place] [address] Allergies No known active allergiesdocumented as of this encounter (statuses as of 06/27/2024) Medications Medication Sig Dispensed Refills Start Date [...] Additional Information Patient not taking.Reported on 03/01/2024 [email or web address] Bottling Attendant Device Use as directed. Active Basaglar KwikPen 100 UNIT/ML Subcutaneous Solution Pen-injector [...] hemoglobin A1c goal of less than 8.0% ([facility]) USE 3-4 TIMES DAILY FOR LONG AND SHORT ACTING INSULIN. 400 Each 2 09/28/2023 Active Sodium Bicarbonate 650 MG Oral TabletIndications:C KD (chronic kidney disease) stage 4, GFR 15-29 ml/min (HCC) Take 2 Tablets by mouth in the morning and 2 Tablets before bedtime. 120 Tablet 11 05/11/2024 Active NIFEdipine ER Osmotic Release 60 MG Oral Tablet Extended Release 24 Hour (Procardia XL) TAKE 1 TABLET BY MOUTH EVERY DAY IN THE MORNING 90 Tablet 05/15/2024 Active documented as of this encounter (statuses as of 06/27/2024) Active Problems Problem Noted Date Diagnosed Date [...] as of this encounter (statuses as of 06/27/2024) Immunizations Name Administration Dates Next Due Covid-19, Mrna, Lnp-s, Pf, B ivalent, 30 Mcg, IM, 12 yrs and above ([employer]) 07/14/2022 Pneumococcal Conjugate Vaccine, 20-valent (Prevn ar20) [...] encounter Miscellaneous Notes * Telephone Encounter - Krysta Chowdhury RDN - 06/27/2024 2:36 PM EDT Clinical Nutrition Reached out to patient to check in on progress towards goal set at last visit and to check if nutrition education materials were received in the mail and to answer any questions or concerns. . Result of call: Spoke with patient's ,, nutrition materials were received in the mail and have been very helpful. Encouraged patient to continue to work on goals and to reach out with any future nutrition questions/concerns. No additional questions/concerns at this time. Electronically signed by: Krysta Bell RDN, [facility] documented in this encounter Plan of Treatment Upcoming Encounters Date Type Department Care Team (Late st Contact Info) Description 06/29/2024 1:00 PM EDT Telemedicine [facility] [place] [address] [place] [address] Cecilia Madden DO [address] [place] [address] 07/09/2024 2:00 PM EDT Office Visit Nephrology, [place] [address] [place] [address] Chico Vaughn MD [address] [place] [address] Health Maintenance Due Date Last Done Comments DTap/Tdap Vaccines (1 - Tdap) 1960 Zoster Vaccines (1 of 2) 1991 DXA Scan 2006 Adult Wellness Visit 2007 Diabetic Foot Exam 10/19/2023 10/19/2022 COVID-19 Vaccine [...] filedocumented as of this encounter Care Teams Inside Sales Supervisor Relationship Specialty Start Date End Date Cecilia Madden DO [address] [place], [place] [address] PCP - General Family Medicine 10/08/22 documented as of this encounter
--- OUTSIDE RECORDS SUMMARY | 2024-06-29 00:22 | External Medical Summary | Summary of Care ---
Author Name Unknown Organization [facility] Address [address] [place] [address] Care Team Providers Care Tunnel Elastic Operator Lockstitch Name Role Phone Cecilia Madden Nunu REID Primary Care Provider Reason for Visit * Reason Comments Medical Nutrition Therapy * Evaluate & Treat - Unlimited Visits (Within 3 days (urgent)) - Pending Review Specialty Diagnoses / Procedures Referred By José Manuel t Referred To Contact Dietitian / Nutrition Services Diagnoses CKD (chronic kidney disease) stage 4, GFR 15-29 ml/min (HCC) Mikki Byrne MD [address] [place] [address] Referral ID Status Reason Start Date Expiration Date Visits Requested Visits Authorized [id number] Pending Review Specialty Services Required 05/15/[phone] Encounter Details Date Type Department Care Team (Latest Contact Info) Description 06/19/2024 10:00 AM EDT Telemedicine Nutrition Services, [facility] [place] [address] [facility], [address] [place] [address] Krysta Chowdhury, RDN [address] [place] [address] CKD (chronic kidney disease) stage 4, GFR 15-29 ml/min (HCC) [N18.4]* Allergies No known active allergiesdocumented as of this encounter (statuses as of 06/19/2024) Medications Medication Sig Dispensed Refills Start Date [...] Additional Information Patient not taking.Reported on 03/01/2024 Dexcom G7 Edge Plugger Device Use as directed. Active Basaglar KwikPen [...] as of this encounter (statuses as of 06/19/2024) Active Problems Problem Noted Date Diagnosed Date [...] as of this encounter (statuses as of 06/19/2024) Immunizations Name Administration Dates Next Due Covid-19, Mrna, Lnp-s, Pf, B ivalent, 30 Mcg, IM, 12 yrs and above ([employer]) 07/14/2022 Pneumococcal Conjugate Vaccine, 20-valent (Prevn ar20) [...] as of this encounter Progress Notes * Krysta Chowdhury, RDN - 06/19/2024 10:02 AM EDT NUTRITION CONSULT - OUTPATIENT [facility] Name: Flora Garcia Location: NUTRITION SERVICES, [facility] Date: 06/19/2024 Time: 10:02 AM Patient was identified by name and date. Patient location: HOME. I was in a hospital or clinic location. After connecting through [employer],patient was verified with two unique identifiers. Patient (or authorized legal food service sales representatives) was then informed that this was a Telemedicine visit and being conducted confidentially over secure lines. Methods to assure confidentiality were taken. Patient acknowledged consent and understanding of pr ivacy and security of the Telemedicine visit. The patient agreed to participate. Reason for Referral: CKD Stage 4 NUTRITION ASSESSMENT: Client History Flora is an 83 year old female referred for CKD Stage IV. She is accompanied by her spouse and Adult Child. Past Medical History: Diagnosis Date HLD (hyperlipidemia) HTN (hypertension) T2DM (type 2 diabetes mellitus) ([facility]) Support System: Spouse, Adult Child Barriers To Learning: None Special Education Needs: None Food/Nutrition-Related History Describes typical diet history/24 hr recall Breakfast: hard boiled eggs and dash and carlitos seeds tea or sprouted grain cereal Snacks: none Lunch: Sprouted bread sandwich with cheese and mustard and lettuce Snacks: berries or mandarin oranges Dinner: Tofu or Frozen organic vegetable and rice Snacks: none Drinks: black tea and water and ice and cranberry juice or lemon juice or seltzer water Restaurant meals: at least once a month Alcohol: None Tobacco Use: No Diet Recall/Food Logs Indicate: Low fat and/or low sugar selections Good meal distribution Low sodium intake Low caffeine intake Adequate fluid intake Food and Nutrient Intake and other pertinent information: Her does the cooking. Following alow potassium , low sodium diet. She was declined for a Kidney Transplant and hoping to avoid dialysis". Food allergies and/or food intolerances: none Pertinent Medications (Current): Current Outpatient Medications Medication Sig Dispense Refill [...] on 03/01/2024) 45 Tablet 3 Dexcom G7 Edge Plugger Device Use as directed. Basaglar KwikPen 100 UNIT/ML Subcutaneous Solution Pen-injector At 10 am Inject under the skin 16 Units (Patient not taking: Reported on 03/01/2024) 45 mL 2 Atorvastatin Calcium 40 MG Oral Tablet (Lipitor) TAKE 1 TABLET BY MOUTH EVERY DAY IN THE MORNING 90Tablet 3 BD Pen Needle Mini U/F 31G X 5 MM (Insulin Pen Needle) USE 3-4 TIMES DAILY FOR LONG AND SHORT ACTING INSULIN. 400 Each 2 Sodium Bicarbonate 650 MG Oral Tablet Take 2 Tablets by mouth in the morning and 2 Tablets before bedtime. 120 Tablet 11 NIFEdipine ER Osmotic Release 60 MG Oral Tablet Extended Release 24 Hour (Procardia XL) TAKE 1 TABLET BY MOUTH EVERY DAY IN THE MORNING 90 Tablet 0 No current facility-administered medications for this visit. Supplements: see medication list Prior Nutrition Counseling: No prior counseling Physical Activity: Sedentary Anthropometric Measurements There were no vitals taken for this visit. Wt Readings from Last 3 Encounters: 05/15/24 55 kg (121 lb 3.2 oz) 03/01/24 57.6 kg (127 lb) 05/19/23 57.6 kg (127 lb) Usual Body Weight: Highest Weight: 134 lbs Lowest Weight: 121 lbs Weight Change: decreased by 6 pounds in the past year Interpretation of weight change: no significant loss Weight Goal: deferred BMI: BMI Readings from Last 1 Encounters: 05/15/24 20.19 kg/m Nutrition-Focused Physical Findings Overall appearance: deferred Digestive system: Nausea Nerves and cognition: Awake, alert and Oriented Biochemical Data, Medical Tests, and Procedures Component Latest Ref Rng 04/25/2024 SODIUM-OUTSIDE LAB 136 - 145 mmol/L 141 (E) POTASSIUM-OUTSIDE LAB 3.5 - 5.1 mmol/L 4.3 (E) CHLORIDE-OUTSIDE LAB 98 - 107 mmol/L 112 (H) (E) CO2-OUTSIDE LAB 22 - 29 mmol/L 18 (L) (E) BUN-OUTSIDE LAB 7 - 20 mg/dL 73 (H) (E) CREATININE-OUTSIDE LAB 0.55 - 1.02 mg/dL 2.78 (H) (E) GLUCOSE-OUTSIDE LAB 70 - 100 mg/dL 86 (E) CALCIUM-OUTSIDE LAB 8.4 - 10.4 mg/dL 8.3 (L) (E) EGFR-OUTSIDE LAB >59.9 mL/min/1.73m2 16.5 (L) (E) ANION GAP-OUTSIDE LAB 6 - 14 mmol/L 11 (E) Legend: (H) High (L) Low (E) External lab result NUTRITION DIAGNOSIS Food and nutrition-related knowledge deficit related to Lack of exposure to nutritional management of CKD Stage IV as evidenced by Reported diet and/or activity recall. NUTRITION INTERVENTION: FOOD AND/OR NUTRIENT DELIVERY Meals Snacks Comprehensive nutrition education Strategies Cardiac Education: 2000 mg Na Diet and List of High Sodium Foods Renal Education: Low Potassium Diet, Nutrition Guide for Chronic Kidney Disease, and Nutrition for People with CKD Stage 3 & 4 Other Education Material: Academy of Nutrition and Dietetics Nutrition Care Manual Handout Chronic Kidney Disease Stages 3-5, nutrition Guide and CKD, 2000 mg Sodium Diet, High Sodium Foods, Eating Right with less added salt, Food Labels and Kidney Disease, Grocery Guide and CKD,Making Sense of phosphorus, Phosphorus Additives, Phosphorus Food Guide, Your Protein Needs, Resources for Eating Well with CKD Nutrition Prescription: Diet: 2000 mg Sodium Consistent Carbohydrate Low Potassium Renal Daily Calorie Needs: 8566-9629 Kcals (25/30 kcal/kg/d) Daily Protein Needs: 44-55 Grams protein 90.8-1.0 gm/kg/d) Goals: Patient will demonstrate or verbalize knowledge of diet. Dietitian Action: Instructed pt on above diet using: Chronic Kidney Disease Stages 3-5,nutrition Guide and CKD, 2000 mg Sodium Diet, High Sodium Foods, Eating Right with less added salt, Food Labels and Kidney Disease, Grocery Guide and CKD,Making Sense of phosphorus, Phosphorus Additives, Phosphorus Food Guide, Your Protein Needs, Resources for Eating Well with CKD Reviewed the above information with Flora sevilla Channing and her son(Sent nutrition education materials via email and in the mail per preference) . Recommendations to Ordering Provider: Continue current plan of nutrition care. NUTRITION MONITORING AND EVALUATION: The following will be monitored and evaluated at the next visit: Monitor weight. Monitor labs. Plan:Patient scheduled to return prn; dietitian phone # given for future reference. 45 minutes Medical Nutrition Therapy 15 min (8-22 min) 30 min (23-37 min) 45 min (38-52 min) 60 min (53-67 min) 75 min (68-82 min) 90 min (83-97 min) 105 min (98-113 min) Time In: 1000 (06/19/24 1002) Time Out: 1046 (06/19/24 1046) Krysta Bell RDN NUTRITION SERVICES, [facility] documented in this encounter Plan of Treatment Upcoming Encounters Date Type Department Care Team (Late st Contact Info) Description 06/26/2024 9:40 AM EDT Office Visit Family Practice [facility] [address] [place] [address] Cecilia Madden DO [address] [facility] [place] [address] 07/09/2024 2:00 PM EDT Office Visit Nephrology, [facility] [address] [place] [address] Chico Vaughn MD [address] [facility] [place] [address] Scheduled Referrals Name Type Priority Associated Diagnoses [...] disease) stage 4, GFR 15-29 ml/min (HCC) [N18.4]- Primary Chronic kidney disease, Stage IV (severe) documented in this encounter Care Teams Tunnel Elastic Operator Lockstitch Relationship Specialty Start Date End Date Cecilia Madden DO [address] [place] [address] PCP - General Family Medicine 10/08/22 documented as of this encounter
--- OUTSIDE RECORDS SUMMARY | 2024-06-29 00:23 | External Medical Summary ---
Author Name Unknown Address Unknown Organization [id number]:LABORATORY [facility] - [address] [place] [address] Laboratory Report Ordering Provider Test Date Status COMFORT HEADLEY 03/01/2024 15:24:06 Final Observation Date Value Abnormality Reference (Units ) Status Ferritin 03/01/2024 15:24:06 109 13-150 (ng /mL) Final Postmenopausal women have hi gher ferritin levels than pre-menopausal women. The above reference interval is based on pre-menopausal women. Performing Location LAB[facility]ATORY [facility] - [address] [place] [address]
--- OUTSIDE RECORDS SUMMARY | 2024-06-29 00:23 | External Medical Summary | Summary of Care ---
Author Name Unknown Organization [facility] Address [address] [place] [address] Phone [phone] Care Team Providers Care Propulsion Engineer Name Role Phone Abdiyisel Cecilia Eddy DO Primary Care Provider Reason for Visit * Reason Onset Date Comments Test Results 03/02/2024 Encounter Details Date Type Department Care Team (Late st Contact Info) Description 03/02/2024 Telephone [facility]rology[facility] [address] [facility] [address] Chico Vaughn MD [address] [facility] [place] [address] Test Results Allergies No known active allergiesdocumented as of this encounter (statuses as of 03/02/2024) Medications Medication Sig Dispensed Refills Start Date End Date Status NovoLOG FlexPen 100 UNIT/ML Subcutaneous Solution Pen-injector (insulin aspart) Inject under the skin . Units as per sliding scale plus carbohydrate count divided by before each meal. (1-4 units) 0 06/29/2022 Active Metoprolol Tartrate 100 MG Oral [...] kidney disease) stage 4, GFR 15-29 ml/min ([facility]) Take 1 Tablet by mouth in the morning. 0 03/23/2023 Active methIMAzole 5 MG Oral Tablet (Tapazole)Indicatio ns:Hyperthyroidism Take 0.5 Tablets by mouth in the morning. 45 Tablet 3 04/18/2023 Active Additional Information Patient not taking.Reported on 03/01/2024 [employer] G7 Cardiac Cath Rn Device Use as directed. 0 Active Metoprolol Tartrate 50 MG Oral Tablet [...] hemoglobin A1c goal of less than 8.0% ([facility]) USE 3-4 TIMES DAILY FOR LONG AND SHORT ACTING INSULIN. 400 Each 2 09/28/2023 Active Vitamin D3 1.25 MG (11638 UT) Oral CapsuleIndications: Vitamin D deficiency Take 1 Capsule by mouth once a week. 12 Capsule 1 10/17/2023 Active NIFEdipine ER Osmotic Release 60 MG Oral Tablet Extended Release 24 Hour (Procardia XL) Take 1 Tablet by mouth in the morning. 90 Tablet 1 11/08/2023 Active Eliquis 2.5 MG Oral TabletIndications:P AF (paroxysmal atrial fibrillation) ([facility]) Take 1 Tablet by mouth in the morning and 1 Tablet before bedtime. 180 Tablet 0 01/18/2024 Active documented as of this encounter (statuses as of 03/02/2024) Active Problems Problem Noted Date Diagnosed Date [...] as of this encounter (statuses as of 03/02/2024) Immunizations Name Administration Dates Next Due Covid-19, Mrna, Lnp-s, Pf, B ivalent, 30 Mcg, IM, 12 yrs and above ([employer]) 07/14/2022 Pneumococcal Conjugate Vaccine, 20-valent (Prevn ar20) [...] Telephone Encounter - Earnestine Dexter RN - 03/02/2024 12:24 PM EDT ----- Message from Chico Vaughn MD sent at 03/02/2024 11:50 AM EDT ----- Regarding: labs Also CBC with diff every month with renal panel * Telephone Encounter - Earnestine Dexter RN - 03/02/2024 12:22 PM EDT AM regarding lab results. Call back number given. Future labs ordered. * Telephone Encounter - Earnestine Dexter RN - 03/02/2024 12:22 PM EDT ----- Message from Chico Vaughn MD sent at 03/02/2024 11:50 AM EDT ----- Vit d is too high. Stop vit d for 2 months. Then do 1000 units daily. GFR lower than last year and now 17 but she has had even lower GFR than this in the past Ask if any UTI symptoms Have her do renal panel monthly . Will decide about transplant referral depending on the trend. Continue other meds same. documented in this encounter Plan of Treatment Upcoming Encounters Date Type Department Care Team (Late st Contact Info) Description 05/02/2024 1:00 PM EDT Office Visit Cardiology, [facility] [address] [place], [place] [id number] Amber Flaherty IV, MD [address] [place] [address] 07/20/2024 2:20 PM EDT Office Visit Nephrology, [facility] [place] [address] [facility] [address] [place] [id number] Chico Vaughn MD [address] [facility] [place] [address] Scheduled Orders Name Type Priority Associated Diagnoses Orde r Schedule CBC WITH WBC DIFFERENTIAL Lab Routine CKD (chronic kidney disease) stage 4, GFR 15-29 ml/min (HCC) Every Month for 12 Occurrences starting 03/02/2024 until 03/02/2025 RENAL FUNCTION PANEL Lab Routine CKD (chronic kidney disease) stage 4, GFR 15-29 ml/min (HCC) Every Month for 12 Occurrences starting 03/02/2024 until 03/02/2025 Health Maintenance Due Date Last Done Comments [...] 11/21/2024 11/21/2023, 11/21/2023 Albumin/Creatinine Ratio 03/01/2025 03/01/2024 Hgb 03/01/2025 03/01/2024, 02/28, 08/18/2022 Nephrology Referral 03/01/2025 03/01/2024 PTH 03/01/2025 03/01/2024, 02/28, 08/18/2022 Phosphate 03/01/2025 03/01/2024, 02/28, 08/18/2022 Pneumococcal Vaccine: 65+ Years Completed 09/10/2022 GARDASIL-HPV [...] (severe) documented in this encounter Care Teams Propulsion Engineer Relationship Specialty Start Date End Date Cecilia Madden DO [address] [place] [address] PCP - General Family Medicine 10/08/22 documented as of this encounter
--- OUTSIDE RECORDS SUMMARY | 2024-06-29 00:23 | External Medical Summary | Summary of Care ---
Author Name Unknown Organization [facility] Address [address] [place] [address] Phone [phone] Care Team Providers Care Booster Assembler Name Role Phone Cecilia Madden DO Primary Care Provider Reason for Visit * Reason Onset Date Comments Medication Refill 09/27/2023 Encounter Details Date Type Department Care Team (Late st Contact Info) Description 09/27/[address] [facility] [address] [facility] [place] [address] Cecilia Madden DO [address] [place] [address] Allergies No known active allergiesdocumented as of this encounter (statuses as of 03/07/2024) Medications Medication Sig Dispensed Refills Start Date End Date Status NovoLOG FlexPen 100 UNIT/ML Subcutaneous Solution Pen-injector (insulin aspart) Inject under the skin . Units as per sliding scale plus carbohydrate count divided by before each meal. (1-4 units) 0 2 Active Metoprolol Tartrate 100 MG Oral Tablet (Lopressor) Take 1 Tablet by mouth in the morning and 1 Tablet before bedtime. 60 Tablet 5 3 Active Additional Information Patient taking differently:100 mg OralDaily(AM), Reported on 05/19/2023 Insulin Glargine Solostar 100 UNIT/ML Subcutaneous Solution Pen-injector At 10 am Inject under the skin 16 Units . At 10 am 45 mL 2 04/20/202 3 Active Iron-Vitamin C 65-125 MG Oral Tablet (Vitron C)Indications:CK D (chronic kidney disease) stage 4, GFR 15-29 ml/min ([facility]) Take 1 Tablet by mouth in the morning. 0 3 Active methIMAzole 5 MG Oral Tablet (Tapazole)Indica tions:Hyperthyro idism Take 0.5 Tablets by mouth in the morning. 45 Tablet 3 3 Active Additional Information Patient not taking.Reported on 03/01/2024 [email or web address] G7 Drying Tumbler Operator Device Use as directed. 0 Act shi Metoprolol Tartrate 50 MG Oral Tablet (Lopressor) TAKE 1 TABLET (50 MG) BY MOUTH EVERY EVENING. IN ADDITION TO 100MG IN THE MORNING. 60 Tablet 11 3 Active Additional Information Patient not taking.Reported [...] goal of less than 8.0% ([facility]) Use 3-4 times daily for long and short acting insulin. 100 Each 2 09/28/20 23 Discontinued Vitamin D3 1.25 MG (01170 UT) Oral CapsuleIndicatio ns:Vitamin D deficiency Take 1 Capsule by mouth once a week. 12 Capsule 1 3 10/13/20 23 Discontinued(Re fill) Eliquis 2.5 MG Oral TabletIndication s:PAF (paroxysmal atrial fibrillation) ([facility]) Take 1 Tablet by mouth in the morning and 1 Tablet before bedtime. 180 Tablet 3 3 01/17/20 24 Discontinued(Re fill) NIFEdipine ER Osmotic Release 60 MG Oral Tablet Extended Release 24 Hour (Procardia XL) Take 1 Tablet by mouth in the morning. 90 Tablet 0 3 11/08/19 24 Discontinued(Re fill) documented as of this encounter (statuses as of 03/07/2024) Active Problems Problem Noted Date Diagnosed Date [...] as of this encounter (statuses as of 03/07/2024) Immunizations Name Administration Dates Next Due Covid-19, Mrna, Lnp-s, Pf, B ivalent, 30 Mcg, IM, 12 yrs and above ([employer]) 07/14/2022 Pneumococcal Conjugate Vaccine, 20-valent (Prevn ar20) [...] encounter Miscellaneous Notes * Telephone Encounter - Jennifer Armstrong CPhT - 09/27/2023 1:19 PM EST Pt calling to request Atorvastatin Calcium 40 MG Oral Tablet (Lipitor) . Informed pt that RX is available at their pharmacy. Pt verbalized understanding and stated they will check with their pharmacyregarding this medication. Thank you, Jennifer Armstrong CPhT [employer]ental [employer]erry [employer] [facility] ([facility]) (Formerly Telepharmacy) 09/27/2023,1:20 PM documented in this encounter Plan of Treatment Upcoming Encounters Date Type Department Care Team (Late st Contact Info) Description 05/02/2024 1:00 PM EDT Office Visit Cardiology, [facility] [address] [place] [address] Amber Flaherty IV, MD [address] [place] [address] 07/20/2024 2:20 PM EDT Office Visit Nephrology, [facility] [address] [facility] [place] [address] Chico Vaughn MD [address] [facility] [place] [address] Health Maintenance Due Date Last Done Comments [...] filedocumented as of this encounter Care Teams Booster Assembler Relationship Specialty Start Date End Date Cecilia Madden DO [address] [place] [address] PCP - General Family Medicine 10/08/22 documented as of this encounter
--- OUTSIDE RECORDS SUMMARY | 2024-06-29 00:23 | External Medical Summary ---
Author Name Unknown Address Unknown Organization K09:[facility]AT[facility] [address] Laboratory Report Ordering Provider Test Date Status COMFORT HEADLEY 04/04/2024 15:13:05 Final Observation Date Value Abnormality Reference (Units ) Status SYNC LEUKOCYTES IN BLOOD BY AUTOMATED COUNT 04/04/2024 15:13:05 6.75 4.00-10.80 (K/uL) Final Segs 04/04/2024 15:13:05 63.6 40.0-75.0 (%) Final Lymphs % 04/04/2024 15:13:05 26.5 18.0-42.0 (%) Final Monos 04/04/2024 15:13:05 7.7 1.0-11.0 (%) Final Eosinophils 04/04/2024 15:13:05 1.3 0.0-6.0 (%) Final Basos 04/04/2024 15:13:05 0.9 0.0-2.0 (%) Final Absolute Segs 04/04/2024 15:13:05 4.29 1.80-7.70 (K/uL) Final Lymphs, absolute 04/04/2024 15:13:05 1.79 1.00-4.80 (K/ul) Final Monos, Abs 04/04/2024 15:13:05 0.52 0.00-1.10 (K/uL) Final Eos, Abs 04/04/2024 15:13:05 0.09 0.00-0.70 (K/uL) Final Basos, Abs 04/04/2024 15:13:05 0.06 0.00-0.20 (K/uL) Final Performing Location [facility] [address]
--- OUTSIDE RECORDS SUMMARY | 2024-06-29 00:23 | External Medical Summary ---
Author Name Unknown Address Unknown Organization K01:LABORATORY [facility] - [address] [place] [address] Laboratory Report Ordering Provider Test Date Status COMFORT HEADLEY 03/01/2024 15:24:06 Final Observation Date Value Abnormality Reference (Units ) Status Iron 03/01/2024 15:24:06 51 33-151 (ug/dL) Final Iron-binding capacity 03/01/2024 15:24:06 216 Below low normal 250-425 (ug/dL) Final Transferrin Sat % 03/01/2024 15:24:06 24 15-55 (%) Final Performing Location LABORATORY [facility] - [address] [place] [address]
--- OUTSIDE RECORDS SUMMARY | 2024-06-29 00:23 | External Medical Summary | Summary of Care ---
Author Name Unknown Organization [facility] Address [address] [place] [address] Phone [phone] Care Team Providers Care Purse Framer Name Role Phone Abdiyisel Cecilia Eddy DO Primary Care Provider Reason for Visit * Reason Comments Outpatient Testing Encounter Details Date Type Department Care Team (Late st Contact Info) Description 03/01/2024 3:50 PM EDT Laboratory Laboratory [facility] [address] [place] [phone] [facility] [address] [facility] [place] [address] CKD (chronic kidney disease) stage 4, GFR 15-29 ml/min ([facility]); Vitamin D deficiency Allergies No known active allergiesdocumented as of this encounter (statuses as of 03/01/2024) Medications Medication Sig Dispensed Refills Start Date [...] Additional Information Patient not taking.Reported on 03/01/2024 [employer] G7 Cytotechnologist/Cytology Supervisor Device Use as directed. 0 Active Metoprolol [...] A1c goal of less than 8.0% ([facility]) USE 3-4 TIMES DAILY FOR LONG AND SHORT ACTING INSULIN. 400 Each 2 09/28/2023 Active Vitamin D3 1.25 MG (12096 UT) Oral CapsuleIndications: Vitamin D deficiency Take 1 Capsule by mouth once a week. 12 Capsule 1 10/17/2023 Active NIFEdipine ER Osmotic Release 60 MG Oral Tablet Extended Release 24 Hour (Procardia XL) Take 1 Tablet by mouth in the morning. 90 Tablet 1 11/08/2023 Active Eliquis 2.5 MG Oral TabletIndications:P AF (paroxysmal atrial fibrillation) ([facility]) Take 1 Tablet by mouth in the morning and 1 Tablet before bedtime. 180 Tablet 0 01/18/2024 Active documented as of this encounter (statuses as of 03/01/2024) Active Problems Problem Noted Date Diagnosed Date [...] as of this encounter (statuses as of 03/01/2024) Immunizations Name Administration Dates Next Due Covid-19, Mrna, Lnp-s, Pf, B ivalent, 30 Mcg, IM, 12 yrs and above ([employer]) 07/14/2022 Pneumococcal Conjugate Vaccine, 20-valent (Prevn ar20) [...] 9:29 AM EDT Sexual Orientation Straight 07/20/2022 9 :29 AM EDT Job Start Date Occupation Industry Not on file Not on file Not on file documented as of this encounter Plan of Treatment Upcoming Encounters Date Type Department Care Team (Late st Contact Info) Description 05/02/2024 1:00 PM EDT Office Visit Cardiology, [facility] [address] [facility] [place] [address] Amber Flaherty IV, MD [address] [facility] [phone] Pending Results Name Type Priority Associated Diagnoses Date /Time 25-HYDROXY VITAMIN D Lab STAT CKD (chronic kidney disease) stage 4, GFR 15-29 ml/min ([facility]) Vitamin D deficiency 03/01/2024 3:24 PM EDT FERRITIN Lab STAT CKD (chronic kidney disease) stage 4, GFR 15-29 ml/min ([facility]) 03/01/2024 3:24 PM EDT IRON SCREEN, INCLUDING TIBC Lab STAT CKD (chronic kidney disease) stage 4, GFR 15-29 ml/min ([facility]) 03/01/2024 3:24 PM EDT PTH Lab STAT CKD (chronic kidney disease) stage 4, GFR 15-29 ml/min ([facility]) 03/01/2024 3:24 PM EDT RENAL FUNCTION PANEL Lab STAT CKD (chronic kidney disease) stage 4, GFR 15-29 ml/min ([facility]) 03/01/2024 3:24 PM EDT MAGNESIUM Lab Routine CKD (chronic kidney disease) stage 4, GFR 15-29 ml/min ([facility]) 03/01/2024 3:24 PM EDT ALBUMIN / CREATININE RATIO, URINE Lab STAT CKD (chronic kidney disease) stage 4, GFR 15-29 ml/min ([facility]) 03/01/2024 3:30 PM EDT PROTEIN/ CREATININE RATIO, URINE Lab Routine CKD (chronic kidney disease) stage 4, GFR 15-29 ml/min ([facility]) 03/01/2024 3:30 PM EDT URINALYSIS WITH MICROSCOPIC EXAM Lab Routine CKD (chronic kidney disease) stage 4, GFR 15-29 ml/min ([facility]) 03/01/2024 3:30 PM EDT Health Maintenance Due Date Last Done Comments Albumin/Creatinine Ratio 1959 DTaP,Tdap,and Td Vaccines (1 - Tdap) 1960 Zoster Vaccines (1 of 2) 1991 DXA Scan 2006 COVID-19 Vaccine ( - season) 2023 07/14/2022, 07/14/2022, 11/25/2020, Additional history exists GFR 09/18/2023 03/18/2023, 07/31, 07/13/2022, Additional history exists HbA1c 09/18/2023 03/18/2023, 08/18/2022 Diabetic Foot Exam 10/19/2023 10/19/2022 PTH 03/18/2024 03/18/2023, 08/18/2022 Phosphate 03/18/2024 03/18/2023, 08/18/2022 Depression Screening 04/19/2024 04/19/2023 Influenza Vaccine (FLU shot) (Season Ended) 2024 07/14/2022, 07/14/2022 Diabetic Eye Exam 11/21/2024 11/21/2023, 11/21/2023 Hgb 03/01/2025 03/01/2024, 02/28, 08/18/2022 Nephrology Referral 03/01/2025 03/01/2024 Pneumococcal Vaccine: 65+ Years Completed 09/10/2022 GARDASIL-HPV [...] Priority Date/Time Associated Diagnosis Comments DIFFERENTIAL, AUTOMATED STAT 03/01/2024 3:24 PM EDT CKD (chronic kidney disease) stage 4, GFR 15-29 ml/min (HCC) CBC STAT 03/01/2024 3:24 PM EDT CKD (chronic kidney disease) stage 4, GFR 15-29 ml/min (HCC) CBC STAT 03/01/2024 3:24 PM EDT CKD (chronic kidney disease) stage 4, GFR 15-29 ml/min (HCC) documented in this encounter Results * DIFFERENTIAL, AUTOMATED (03/01/2024 3:24 PM EDT) WBC 8.03 4.00 - 10.80 K/uL 03/01/2024 3:30 PM EDT [facility] 56-02 Neutrophils % 65.6 40.0 - 75.0 % 03/01/2024 3:30 PM EDT [facility] 56-02 Lymphocytes % 25.4 18.0 - 42.0 % 03/01/2024 3:30 PM EDT [facility] 56-02 Monocytes % 7.1 1.0 - 11.0 % 03/01/2024 3:30 PM EDT [facility] 56-02 Eosinophils % 1.2 0.0 - 6.0 % 03/01/2024 3:30 PM EDT [facility] 56- Basophils % 0.7 0.0 - 2.0 % 03/01/2024 3:30 PM EDT [facility] 56- Absolute Neutrophils 5.26 1.80 - 7.70 K/uL 03/01/2024 3:30 PM EDT [facility] 56-02 Absolute Lymphocytes 2.04 1.00 - 4.80 K/ul 03/01/2024 3:30 PM EDT [facility] 56-02 Absolute Monocytes 0.57 0.00 - 1.10 K/uL 03/01/2024 3:30 PM EDT [facility] 56-02 Absolute Eosinophils 0.10 0.00 - 0.70 K/uL 03/01/2024 3:30 PM EDT [facility] 56-02 Absolute Basophils 0.06 0.00 - 0.20 K/uL 03/01/2024 3:30 PM EDT [facility] 56-02 Blood Venous blood specimen / Unknown Venipuncture / Unknown 03/01/2024 3:24 PM EDT 03/01/2024 3:24 PM EDT Chico Vaughn MD LAB BLOOD ORDERABLES [facility] [address] [place] [address] * (ABNORMAL) CBC (03/01/2024 3:24 PM EDT) WBC 8.03 4.00 - 10.80 K/uL 03/01/2024 3:30 PM EDT [facility] 56 RBC 3.44 3.85 - 5.15 M/uL 03/01/2024 3:30 PM EDT [facility] 56 HGB 9.6(L) 12.0 - 15.3 g/dL 03/01/2024 3:30 PM EDT [facility] 56 HCT 30.9(L) 36.0 - 45.2 % 03/01/2024 3:30 PM EDT [facility] 56 MCV 89.8 81.5 - 97.5 fL 03/01/2024 3:30 PM EDT [facility] 56 MCH 27.9 27.0 - 34.0 pg 03/01/2024 3:30 PM EDT [facility] 56 MCHC 31.1 32.0 - 36.0 g/dL 03/01/2024 3:30 PM EDT [facility] 56 RDW 12.9 11.5 - 15.5 % 03/01/2024 3:30 PM EDT [facility] 56 PLT 203 140 - 400 K/uL 03/01/2024 3:30 PM EDT [facility] 56 MPV 10.8 6.6 - 11.1 fL 03/01/2024 3:30 PM EDT [facility] 56 Blood Venous blood specimen / Unknown Venipuncture / Unknown 03/01/2024 3:24 PM EDT 03/01/2024 3:24 PM EDT Chico Vaughn MD LAB BLOOD ORDERABLES [facility] [address] [facility] [place] [address] documented in this encounter Visit Diagnoses Diagnosis CKD (chronic kidney disease) stage 4, GFR 15-29 ml/min (HCC) Chronic kidney disease, Stage IV (severe) Vitamin D deficiency Unspecified vitamin D deficiency documented in this encounter Care Teams Purse Framer Relationship Specialty Start Date End Date Cecilia Madden DO [address] [facility] [place] [address] PCP - General Family Medicine 10/08/22 documented as of this encounter
--- OUTSIDE RECORDS SUMMARY | 2024-06-29 00:23 | External Medical Summary ---
Author Name Unknown Address Unknown Organization [id number]:[facility] [place] [address] Laboratory Report Ordering Provider Test Date Status COMFORT HEADLEY 04/04/2024 15:13:05 Final Observation Date Value Abnormality Reference (Units ) Status WBC, Total 04/04/2024 15:13:05 6.75 4.00-10.8 0 (K/uL) Final RBC 04/04/2024 15:13:05 3.37 3.85-5.15 (M/uL) Final Hemoglobin 04/04/2024 15:13:05 9.6 Below low normal 12 .0-15.3 (g/dL) Final HCT 04/04/2024 15:13:05 30.7 Below low normal 36. 0-45.2 (%) Final MCV 04/04/2024 15:13:05 91.1 81.5-97.5 (fL) Final MCH 04/04/2024 15:13:05 28.5 27.0-34.0 (pg) Final MCHC 04/04/2024 15:13:05 31.3 32.0-36.0 (g/dL) Final RDW 04/04/2024 15:13:05 12.8 11.5-15.5 (%) Final Platelets 04/04/2024 15:13:05 171 140-400 (K /uL) Final MPV 04/04/2024 15:13:05 11.7 6.6-11.1 ( fL) Final Performing Location [facility] [place] [address]
--- OUTSIDE RECORDS SUMMARY | 2024-06-29 00:23 | External Medical Summary ---
Author Name Unknown Address Unknown Organization [id number]:[facility] [place] [address] Laboratory Report Ordering Provider Test Date Status COMFORT HEADLEY 03/01/2024 15:24:06 Final Observation Date Value Abnormality Reference (Units ) Status BUN 03/01/2024 15:24:06 59 Above high normal 6-20 (mg/dL) Final Creatinine 03/01/2024 15:24:06 2.7 Above high normal 0.5-1.0 (mg/dL) Final Glomerular filtration rate/1.73 sq M.predicted [Volume Rate/Area] in Serum, Plasma or Blood by Creatinine-based formula (CKD-EPI) 03/01/2024 15:24:06 17 Below low normal >=60 (mL/min) Final eGFR is calculated based on the CKD-EPI 2020 equation Sodium 03/01/2024 15:24:06 136 135-146 (m mol/L) Final Potassium 03/01/2024 15:24:06 4.6 3.5-5.1 (m mol/L) Final Cl 03/01/2024 15:24:06 100 98-107 (mm ol/L) Final CO2 03/01/2024 15:24:06 21 Below low normal 22- 32 (mmol/L) Final Anion gap 03/01/2024 15:24:06 15 7-15 (mmol /L) Final Glucose 03/01/2024 15:24:06 200 Above high normal 70 -120 (mg/dL) Final Calcium 03/01/2024 15:24:06 9.7 8.4-10.2 ( mg/dL) Final Albumin 03/01/2024 15:24:06 3.9 3.8-5.0 (g /dL) Final Phosphate 03/01/2024 15:24:06 4.5 2.5-4.8 (m g/dL) Final Performing Location [facility] [place] [address]
--- OUTSIDE RECORDS SUMMARY | 2024-06-29 00:23 | External Medical Summary | Summary of Care ---
Author Name Unknown Organization [facility] Address [address] [place] [address] Phone [phone] Care Team Providers Care Slot Floor Person Name Role Phone Abdiyisel Cecilia Eddy DO Primary Care Provider Reason for Visit * Reason Onset Date Comments Test Results 03/02/2024 Encounter Details Date Type Department Care Team (Late st Contact Info) Description 03/02/2024 Telephone [facility] [address] [place] [address] Chico Vaughn MD [address] [place] [address] Test Results Allergies No known active allergiesdocumented [...] kidney disease) stage 4, GFR 15-29 ml/min ([facility]) Take 1 Tablet by mouth in the morning. 0 03/23/2023 Active methIMAzole 5 MG Oral Tablet (Tapazole)Indicatio ns:Hyperthyroidism Take 0.5 Tablets by mouth in the morning. 45 Tablet 3 04/18/2023 Active Additional Information Patient not taking.Reported on 03/01/2024 [employer] G7 Weather Analyst Device Use as directed. 0 Active Metoprolol [...] 2 09/28/2023 Active Vitamin D3 1.25 MG (72926 UT) Oral CapsuleIndications: Vitamin D deficiency Take [...] 30 Mcg, IM, 12 yrs and above ([employer]) 07/14/2022 Pneumococcal Conjugate Vaccine, 20-valent (Prevn ar20) [...] Telephone Encounter - Terri Suarez LPN - 03/07/2024 2:49 PM EDT LMM to return call to our office * Telephone Encounter - Medina Huertas OSA - 03/07/2024 2:45 PM EDT Good afternoon, Pt , Channing, returning call. Please contact Channing to go over results and instructions. Thank you! * Telephone Encounter - Earnestine Dexter RN - 03/06/2024 1:15 PM EDT LMAM with call back number regarding lab results. * Telephone Encounter - Terri Suarez LPN - 03/05/2024 2:37 PM EDT LMM to return call to our office regarding * Telephone Encounter - Earnestine Dexter RN - 03/02/2024 12:24 PM EDT ----- Message from Chico Vaughn MD sent at 03/02/2024 11:50 AM EDT ----- Regarding: labs Also CBC with diff every month with renal panel * Telephone Encounter - Earnestine Dexter RN - 03/02/2024 12:22 PM EDT LMAM regarding lab results. Call back number given. [...] 1:00 PM EDT Office Visit Cardiology, [facility] [address] [facility] [place] [phone] Amber Flaherty IV, MD [address] [place] [facility] [place] [address] 07/20/2024 2:20 PM EDT Office Visit Nephrology, [facility] [address] [place] [address] Chico Vaughn MD [address] [place] [address] Scheduled Orders Name Type Priority Associated Diagnoses [...] (severe) documented in this encounter Care Teams Slot Floor Person Relationship Specialty Start Date End Date Cecilia Madden DO [address] [place] [address] PCP - General Family Medicine 10/08/22 documented as of this encounter
--- OUTSIDE RECORDS SUMMARY | 2024-06-29 00:23 | External Medical Summary | Summary of Care ---
Author Name Unknown Organization [facility] Address [address] [place] [address] Phone [phone] Care Team Providers Care Pipe Puller Name Role Phone Abdiyisel Cecilia Eddy DO Primary Care Provider Reason for Visit * Reason Comments Outpatient Testing Encounter Details Date Type Department Care Team (Late st Contact Info) Description 03/01/2024 3:50 PM EDT Laboratory Laboratory [facility] [address] [place] [phone] [facility] [address] [facility] [place] [address] CKD (chronic kidney disease) stage 4, GFR 15-29 ml/min ([facility]); Vitamin D deficiency Allergies No known active [...] Additional Information Patient not taking.Reported on 03/01/2024 [employer] G7 Yeast Supervisor Device Use as directed. 0 Active [...] goal of less than 8.0% ([facility]) USE 3-4 TIMES DAILY FOR LONG AND SHORT ACTING INSULIN. 400 Each 2 09/28/2023 Active Vitamin D3 1.25 MG (82270 UT) Oral CapsuleIndications: Vitamin D deficiency Take 1 Capsule by mouth once a week. 12 Capsule 1 10/17/2023 Active NIFEdipine ER Osmotic Release 60 MG Oral Tablet Extended Release 24 Hour (Procardia XL) Take 1 Tablet by mouth in the morning. 90 Tablet 1 11/08/2023 Active Eliquis 2.5 MG Oral TabletIndications:P AF (paroxysmal atrial fibrillation) ([facility]) Take 1 Tablet by mouth in [...] 30 Mcg, IM, 12 yrs and above ([employer]) 07/14/2022 Pneumococcal Conjugate Vaccine, 20-valent (Prevn ar20) [...] 05/02/2024 1:00 PM EDT Office Visit Cardiology, [facility] [address] [facility] [place] [address] Amber Flaherty IV, MD [address] [facility] [phone] Pending Results Name Type Priority Associated Diagnoses Date /Time 25-HYDROXY VITAMIN D Lab STAT CKD (chronic kidney disease) stage 4, GFR 15-29 ml/min ([facility]) Vitamin D deficiency 03/01/2024 3:24 PM EDT FERRITIN Lab STAT CKD (chronic kidney disease) stage 4, GFR 15-29 ml/min ([facility]) 03/01/2024 3:24 PM EDT IRON SCREEN, INCLUDING TIBC Lab STAT CKD (chronic kidney disease) stage 4, GFR 15-29 ml/min ([facility]) 03/01/2024 3:24 PM EDT PTH Lab STAT CKD (chronic kidney disease) stage 4, GFR 15-29 ml/min ([facility]) 03/01/2024 3:24 PM EDT RENAL FUNCTION PANEL Lab STAT CKD (chronic kidney disease) stage 4, GFR 15-29 ml/min ([facility]) 03/01/2024 3:24 PM EDT MAGNESIUM Lab Routine CKD (chronic kidney disease) stage 4, GFR 15-29 ml/min ([facility]) 03/01/2024 3:24 PM EDT ALBUMIN / CREATININE RATIO, URINE Lab STAT CKD (chronic kidney disease) stage 4, GFR 15-29 ml/min ([facility]) 03/01/2024 3:30 PM EDT PROTEIN/ CREATININE RATIO, URINE Lab Routine CKD (chronic kidney disease) stage 4, GFR 15-29 ml/min ([facility]) 03/01/2024 3:30 PM EDT URINALYSIS WITH MICROSCOPIC EXAM Lab Routine CKD (chronic kidney disease) stage 4, GFR 15-29 ml/min ([facility]) 03/01/2024 3:30 PM EDT Health Maintenance Due [...] - 10.80 K/uL 03/01/2024 3:30 PM EDT [facility] 56-02 Neutrophils % 65.6 40.0 - 75.0 % 03/01/2024 3:30 PM EDT [facility] 56-02 Lymphocytes % 25.4 18.0 - 42.0 % 03/01/2024 3:30 PM EDT [facility] 56-02 Monocytes % 7.1 1.0 - 11.0 % 03/01/2024 3:30 PM EDT [facility] 56-02 Eosinophils % 1.2 0.0 - 6.0 % 03/01/2024 3:30 PM EDT [facility] 56- Basophils % 0.7 0.0 - 2.0 % 03/01/2024 3:30 PM EDT [facility] 56- Absolute Neutrophils 5.26 1.80 - 7.70 K/uL 03/01/2024 3:30 PM EDT [facility] 56-02 Absolute Lymphocytes 2.04 1.00 - 4.80 K/ul 03/01/2024 3:30 PM EDT [facility] 56-02 Absolute Monocytes 0.57 0.00 - 1.10 K/uL 03/01/2024 3:30 PM EDT [facility] 56-02 Absolute Eosinophils 0.10 0.00 - 0.70 K/uL 03/01/2024 3:30 PM EDT [facility] 56-02 Absolute Basophils 0.06 0.00 - 0.20 K/uL 03/01/2024 3:30 PM EDT [facility] 56-02 Blood Venous blood specimen / Unknown Venipuncture / Unknown 03/01/2024 3:24 PM EDT 03/01/2024 3:24 PM EDT Chico Vaughn MD LAB BLOOD ORDERABLES [facility] [address] [place] [address] * (ABNORMAL) CBC (03/01/2024 3:24 PM EDT) WBC 8.03 4.00 - 10.80 K/uL 03/01/2024 3:30 PM EDT [facility] 56 RBC 3.44 3.85 - 5.15 M/uL 03/01/2024 3:30 PM EDT [facility] 56 HGB 9.6(L) 12.0 - 15.3 g/dL 03/01/2024 3:30 PM EDT [facility] 56 HCT 30.9(L) 36.0 - 45.2 % 03/01/2024 3:30 PM EDT [facility] 56 MCV 89.8 81.5 - 97.5 fL 03/01/2024 3:30 PM EDT [facility] 56 MCH 27.9 27.0 - 34.0 pg 03/01/2024 3:30 PM EDT [facility] 56 MCHC 31.1 32.0 - 36.0 g/dL 03/01/2024 3:30 PM EDT [facility] 56 RDW 12.9 11.5 - 15.5 % 03/01/2024 3:30 PM EDT [facility] 56 PLT 203 140 - 400 K/uL 03/01/2024 3:30 PM EDT [facility] 56 MPV 10.8 6.6 - 11.1 fL 03/01/2024 3:30 PM EDT [facility] 56 Blood Venous blood specimen / Unknown Venipuncture / Unknown 03/01/2024 3:24 PM EDT 03/01/2024 3:24 PM EDT Chico Vaughn MD LAB BLOOD ORDERABLES [facility] [address] [facility] [place] [address] documented in this encounter Visit Diagnoses Diagnosis CKD (chronic kidney disease) stage 4, GFR 15-29 ml/min (HCC) Chronic kidney disease, Stage IV (severe) Vitamin D deficiency Unspecified vitamin D deficiency documented in this encounter Care Teams Pipe Puller Relationship Specialty Start Date End Date Cecilia Madden DO [address] [facility] [place] [address] PCP - General Family Medicine 10/08/22 documented as of this encounter
--- OUTSIDE RECORDS SUMMARY | 2024-06-29 00:23 | External Medical Summary ---
Author Name Unknown Address Unknown Organization K09:[facility] [place] [address] Laboratory Report Ordering Provider Test Date Status COMFORT HEADLEY 04/04/2024 15:13:05 Final Observation Date Value Abnormality Reference (Units ) Status BUN 04/04/2024 15:13:05 92 Above high normal 6-20 (mg/dL) Final Creatinine 04/04/2024 15:13:05 3.2 Above high normal 0.5-1.0 (mg/dL) Final Glomerular filtration rate/1.73 sq M.predicted [Volume Rate/Area] in Serum, Plasma or Blood by Creatinine-based formula (CKD-EPI) 04/04/2024 15:13:05 14 Below low normal >=60 (mL/min) Final eGFR is calculated based on the CKD-EPI 2020 equation Sodium 04/04/2024 15:13:05 136 135-146 (m mol/L) Final Potassium 04/04/2024 15:13:05 4.8 3.5-5.1 (m mol/L) Final Cl 04/04/2024 15:13:05 97 Below low normal 98- 107 (mmol/L) Final CO2 04/04/2024 15:13:05 21 Below low normal 22- 32 (mmol/L) Final Anion gap 04/04/2024 15:13:05 18 Above high normal 7- 15 (mmol/L) Final Glucose 04/04/2024 15:13:05 344 Above high normal 70 -120 (mg/dL) Final Calcium 04/04/2024 15:13:05 9.3 8.4-10.2 ( mg/dL) Final Albumin 04/04/2024 15:13:05 4.1 3.8-5.0 (g /dL) Final Phosphate 04/04/2024 15:13:05 4.7 2.5-4.8 (m g/dL) Final Performing Location [facility] [place] [address]
--- OUTSIDE RECORDS SUMMARY | 2024-06-29 00:23 | External Medical Summary ---
Author Name Unknown Address Unknown Organization K01:LAB[facility]ATORY [facility] [place] - [address] [place] [address] Laboratory Report Ordering Provider Test Date Status COMFORT HEADLEY 03/01/2024 15:30:26 Final Normal: <30 mg/g creatinine< br/>High: 30-300 mg/g creatinine
Very High: >300 mg/g creatinine
Nephrotic: >2200 mg/g creatinine Observation Date Value Abnormality Reference (Units ) Status Albumin, Urine 03/01/2024 15:30:26 107.33 (mg/dL) Final Creatinine, Urine 03/01/2024 15:30:26 33 (mg/dL) Final Albumin/Creatinine [Mass Ratio] in Urine 03/01/2024 15:30:26 3252 Above high normal <30 (mg/g Creat) Final Performing Location LABORATORY [facility] [place] - [address] [place] [address]
--- OUTSIDE RECORDS SUMMARY | 2024-06-29 00:23 | External Medical Summary ---
Author Name Unknown Address Unknown Organization K01:[facility] [place] [address] [facility] [address] Laboratory Report Ordering Provider Test Date Status COMFORT HEADLEY 03/01/2024 15:30:26 Final Observation Date Value Abnormality Reference (Units ) Status Color of Urine by Auto 03/01/2024 15:30:26 Colorless Colorless, Light Yellow, Yellow, Dark Yellow Final Clarity, Urine 03/01/2024 15:30:26 Slightly Cloudy Abnormal Clear Final Glucose [Mass/volume] in Urine by Automated test strip 03/01/2024 15:30:26 100 Abnormal Negative (mg/dL) Final Bilirubin.total [Presence] in Urine by Automated test strip 03/01/2024 15:30:26 Negative Negative Final Ketones [Mass/volume] in Urine by Automated test strip 03/01/2024 15:30:26 Trace Abnormal Negative (mg/dL) Final Specific gravity, Urine 03/01/2024 15:30:26 1.012 1.003-1.030 Final Hemoglobin [Presence] in Urine by Automated test strip 03/01/2024 15:30:26 Negative Negative Final pH, Urine 03/01/2024 15:30:26 6.0 5.0-7.5 (Units) Final Protein [Mass/volume] in Urine by Automated test strip 03/01/2024 15:30:26 100 Abnormal Negative (mg/dL) Final Urobilinogen [Mass/volume] in Urine by Automated test strip 03/01/2024 15:30:26 Normal Normal (mg/dL) Final Nitrite [Presence] in Urine by Automated test strip 03/01/2024 15:30:26 Negative Negative Final Leukocyte esterase [Presence] in Urine by Automated test strip 03/01/2024 15:30:26 Large Abnormal Negative Final RBC, Urine 03/01/2024 15:30:26 10-19 Abnormal 0-2 (/HPF) Final WBC, Urine 03/01/2024 15:30:26 50+ Abnormal 0-2 (/HPF) Final Bacteria [#/area] in Urine sediment by Microscopy high power field 03/01/2024 15:30:26 101-150 Abnormal 0-25 (/HPF) Final Performing Location [facility] [place] [address] [facility] [id number]
--- OUTSIDE RECORDS SUMMARY | 2024-06-29 00:23 | External Medical Summary | Summary of Care ---
Author Name Unknown Organization [facility] Address [address] [place] [address] Phone [phone] Care Team Providers Care Cost Control Analyst Name Role Phone Abdiyisel Cecilia Eddy DO Primary Care Provider Reason for Visit * Reason Onset Date Comments Test Results 03/02/2024 Encounter Details Date Type Department Care Team (Late st Contact Info) Description 03/02/2024 Telephone [facility]rologyMiller [address] [facility] [place] [address] Chico Vaughn MD [address] [facility] [place] [address] Test Results Allergies No known active allergiesdocumented [...] disease) stage 4, GFR 15-29 ml/min ([facility]) Take 1 Tablet by mouth in the morning. 0 03/23/2023 Active methIMAzole 5 MG Oral Tablet (Tapazole)Indicatio ns:Hyperthyroidism Take 0.5 Tablets by mouth in the morning. 45 Tablet 3 04/18/2023 Active Additional Information Patient not taking.Reported on 03/01/2024 SavvySync G7 Career Development Specialist Device Use as directed. 0 Active Metoprolol [...] A1c goal of less than 8.0% ([facility]) USE 3-4 TIMES DAILY FOR LONG AND SHORT ACTING INSULIN. 400 Each 2 09/28/2023 Active Vitamin D3 1.25 MG (89067 UT) Oral CapsuleIndications: Vitamin D deficiency Take 1 Capsule by mouth once a week. 12 Capsule 1 10/17/2023 Active NIFEdipine ER Osmotic Release 60 MG Oral Tablet Extended Release 24 Hour (Procardia XL) Take 1 Tablet by mouth in the morning. 90 Tablet 1 11/08/2023 Active Eliquis 2.5 MG Oral TabletIndications:P AF (paroxysmal atrial fibrillation) ([facility]) Take 1 Tablet by mouth in [...] 30 Mcg, IM, 12 yrs and above (Control4) 07/14/2022 Pneumococcal Conjugate Vaccine, 20-valent (Prevn ar20) [...] encounter Miscellaneous Notes * Telephone Encounter - Medina Huertas OSA - 03/07/2024 2:45 PM EDT Kelvin lópez, Pt , Channing, returning call. Please contact [...] 05/02/2024 1:00 PM EDT Office Visit Cardiology, [facility] [address] [place] [address] Amber Flaherty IV, MD [address] [facility] [place] [id number] 07/20/2024 2:20 PM EDT Office Visit Nephrology, [facility] [address] [facility] [place] [id number] Chico Vaughn MD [address] [facility] [place] [address] Scheduled Orders Name Type Priority Associated Diagnoses [...] Ended) 2024 07/14/2022, 07/14/2022 GFR 09/01/2024 03/01/2024, 0507/2023, 08/18/2022, Additional history exists Diabetic Eye Exam [...] (severe) documented in this encounter Care Teams Cost Control Analyst Relationship Specialty Start Date End Date Cecilia Madden DO [address] [place] [address] PCP - General Family Medicine 10/08/22 documented as of this encounter
--- OUTSIDE RECORDS SUMMARY | 2024-06-29 00:23 | External Medical Summary | Summary of Care ---
Author Name Unknown Organization [facility] Address [address] [place] [address] Phone [phone] Care Team Providers Care Change Number Operator Name Role Phone Maryanne Cecilia Eddy DO Primary Care Provider Reason for Visit * Reason Comments Chronic Kidney Disease (CKD) Encounter Details Date Type Department Care Team (Late st Contact Info) Description 03/01/2024 2:20 PM EDT Office Visit Nephrology, [place] [address] [facility] [place] [address] Chico Vaughn MD [address] [facility] [place] [address] CKD (chronic kidney disease) stage 4, GFR 15-29 ml/min ([facility])* Allergies No known active allergiesdocumented [...] Additional Information Patient not taking.Reported on 03/01/2024 Global CIO G7 Talent Development Analyst Device Use as directed. 0 Active [...] A1c goal of less than 8.0% ([facility]) USE 3-4 TIMES DAILY FOR LONG AND SHORT ACTING INSULIN. 400 Each 2 09/28/2023 Active Vitamin D3 1.25 MG (79065 UT) Oral CapsuleIndications: Vitamin D deficiency Take 1 Capsule by mouth once a week. 12 Capsule 1 10/17/2023 Active NIFEdipine ER Osmotic Release 60 MG Oral Tablet Extended Release 24 Hour (Procardia XL) Take 1 Tablet by mouth in the morning. 90 Tablet 1 11/08/2023 Active Eliquis 2.5 MG Oral TabletIndications:P AF (paroxysmal atrial fibrillation) ([facility]) Take 1 Tablet by mouth [...] 30 Mcg, IM, 12 yrs and above (Context app) 07/14/2022 Pneumococcal Conjugate Vaccine, 20-valent (Prevn ar20) [...] Sign Reading Time Taken Comments Blood Pressure 134/88 03/01/2024 2:35 PM EDT Pulse 104 03/01/2024 2:35 PM EDT Temperature 36.6 C (97.8 F) 03/01/2024 2:35 PM ED T Respiratory Rate 18 03/01/2024 2:35 PM EDT Oxygen Saturation 98% 03/01/2024 2:35 PM EDT Inhaled Oxygen Concentration - - Weight 57.6 kg (127 lb) 03/01/2024 2:35 PM EDT Height - - Body Mass Index 21.13 11/30/2022 3:17 PM EST documented in this encounter Progress Notes * Chico Vaughn MD - 03/01/2024 2:49 PM EDT HPI: 83/F who lives in [place]. Has h/o CKD 4 and was seeing Nephrology in [facility]---last visit scanned from . H/o type 2 DM, afib, hypothyroidism, HFrEF, HTN, meningioma s/p [id number], hyperthyroidism. Cr was 0.6 in 04/2016, increased to low to mid 1s in 4399-2031, but increased to 3.07 on 02/15/22 . 2.8 as of 07/13/2022 and then 2.03 August 2022. No proteinuria. Since last visit -----denies any symptoms at this time. was present for the appointment and her elder son was available by phone. She loves living in [place]. She is still keeping her apartment in [facility]. andson takes care of follow-up for medicine. Denies nausea vomiting chest pain shortness of breath or any real problems. She did see Nephrology while in [place]. Also saw a neurosurgeon and there is some issues about possible need of Watchman procedure. NSAID No Renal Stone No Herbal Medication No Urinary Complaints No Current Outpatient Medications Medication Sig Dispense Refill [...] 1 Tablet by mouth in the morning. Atorvastatin Calcium 40 MG Oral Tablet (Lipitor) TAKE 1 TABLET BY MOUTH EVERY DAY IN THE MORNING 90Tablet 3 Vitamin D3 1.25 MG (10819 UT) Oral Capsule Take 1 Capsule by mouth once a week. 12 Capsule 1 NIFEdipine ER Osmotic Release 60 MG Oral Tablet Extended Release 24 Hour (Procardia XL) Take 1 Tablet by mouth in the morning. 90 Tablet 1 Eliquis 2.5 MG Oral Tablet Take 1 Tablet by mouth in the morning and 1 Tablet before bedtime. 180 Tablet 0 methIMAzole 5 MG Oral Tablet (Tapazole) Take 0.5 Tablets by mouth in the morning. (Patient not taking: Reported on 03/01/2024) 45 Tablet 3 Dexcom G7 Talent Development Analyst Device Use as directed. Metoprolol Tartrate 50 MG Oral Tablet (Lopressor) TAKE 1 TABLET (50 MG) BY MOUTH EVERY EVENING. IN ADDITION TO 100MG IN THE MORNING. (Patient not taking: Reported on 03/01/2024) 60 Tablet 11 Basaglar KwikPen 100 UNIT/ML Subcutaneous Solution Pen-injector At 10 am Inject under the skin 16 Units (Patient not taking: Reported on 03/01/2024) 45 mL 2 BD Pen Needle Mini U/F 31G X 5 MM (Insulin Pen Needle) USE 3-4 TIMES DAILY FOR LONG AND SHORT ACTING INSULIN. 400 Each 2 No current facility-administered medications for this visit. Past Medical History: Diagnosis Date HLD (hyperlipidemia) HTN (hypertension) T2DM (type 2 diabetes mellitus) (HCC) No past surgical history on file. Review of patient's allergies indicates: No Known Allergies No family history on file. Family History of Renal Disease No Social History Socioeconomic History Marital status: Spouse name: Not on file Number of children: Not on file Years of education: Not on file Highest education level: Not on file Occupational History Not on file Tobacco Use Smoking status: Never Smokeless tobacco: Never Vaping Use Vaping Use: Never used Substance and Sexual Activity Alcohol use: Yes [...] Never true Transportation Needs: Not on file Physical Activity: Not on file Stress: Not on file Social Connections: Not on file Intimate Partner Violence: Not on file Housing Stability: Not on file Review of Systems: 12 systems negative OBJECTIVE: PHYSICAL EXAM: BP 134/88 (BP Site: Right Arm, BP Position: Sitting, BP Cuff Size: Regular) | Pulse 104 | Temp 36.6C (97.8 F) | Resp 18 | Wt 57.6 kg (127 lb) | SpO2 98% | BMI 21.13 kg/m | BSA 1.63 m Alert and oriented. NO distress. Normal facial appearance Mucous membrane is moist Neck is supple no JVD Chest bilateral clear to auscultation CVS S1-S2 regular abdomen is soft non tender extremities shows no edema BP Readings from Last 4 Encounters: 03/01/24 134/88 05/19/23 126/60 04/19/23 124/78 03/18/23 123/62 Wt Readings from Last 4 Encounters: 03/01/24 57.6 kg (127 lb) 05/19/23 57.6 kg (127 lb) 04/19/23 59.8 kg (131 lb 12.8 oz) 03/18/23 57 kg (125 lb 9.6 oz) Estimated body mass index is 21.13 kg/m as calculated from the following: Height as of 11/30/22: 1.651 m (5' 5"). Weight as of this encounter: 57.6 kg (127 lb). NEPH-FLOW Latest Ref Rng & Units 07/13/2022 Bun 6 - 20 mg/dL 56 (H) Cr 0.5 - 1.0 mg/dL 2.8 (H) eGFR >=60 mL/min 17 (L) K 3.5 - 5.1 mmol/L 4.6 ASSESSMENT: CKD (chronic kidney disease) stage 4, GFR 15-29 ml/min ([facility]) (Primary) CKD stage 4 with high-grade proteinuria of about 2 g already established while in [facility]. CKD 4 for atleast few years now. Cause multifactorial with DM, HTN, Age. Cardiac etc. NO renal biopsy. Normal exam and Denies any complaints. Renal ultrasound done July 2022 shows bilateral echogenic kidney suggestive of medical renal disease. Her GFR while in [place] was lower most likely because of some lower blood pressure medication andGFR did improve slightly after stopping Jah/Arb. Even now blood pressure is very well controlled. So will continue current medication which is metoprolol and nifedipine. Labs as below today. was present for the appointment and her elder son was available by phone. Discussed about need of lower potassium diet low-salt diet and not to push fluid too much. However no need to lower the protein intake which is already marginal in her case After lab results will pursue further discussion Her son Satish had lot of questions about potential transplant. I did tell him that at her age the chances of getting transplant is pretty low but they have multiple potential donor in the family and really want her to be evaluated. If her GFR is less than 18 we will refer as per her family request At this time no evidence of fluid overload despite no diuretics. - CBC WITH WBC DIFFERENTIAL; Future; Expected date: 03/01/2024 - PTH; Future; Expected date: 03/01/2024 - RENAL FUNCTION PANEL; Future; Expected date: 03/01/2024 - PROTEIN/ CREATININE RATIO, URINE; Future; Expected date: 03/01/2024 - URINALYSIS WITH MICROSCOPIC EXAM; Future; Expected date: 03/01/2024 - MAGNESIUM; Future; Expected date: 03/01/2024 - 25-HYDROXY VITAMIN D; Future; Expected date: 03/01/2024 - IRON SCREEN, INCLUDING TIBC; Future; Expected date: 03/01/2024 HTN, goal below 140/90 Jah/Arb was stopped because GFR dropped to below 15 while she was still living in [facility]. GFR somewhat better after that. Blood pressure is well controlled. Follow Up: Return in about 4 months (around 07/02/2024) for Clinic Visit. | For: Clinic Visit Chico Vaughn MD documented in this encounter Nursing Notes * Earnestine Dexter RN - 03/01/2024 2:39 PM EDT Follow up visit today. No recent illness or hospital stays. present and is calling son to be on the call. documented in this encounter Plan of Treatment Upcoming Encounters Date Type Department Care Team (Late st Contact Info) Description 05/02/2024 1:00 PM EDT Office Visit Cardiology, [facility] [address] [facility] [place] [address] Amber Flaherty IV, MD [address], [place] [phone] 07/20/2024 2:20 PM EDT Office Visit Nephrology, [facility] 200 [facility] [place] [phone] Chico Vaughn MD [address] [facility] [place] [address] Pending Results Name Type Priority Associated Diagnoses Date /Time PROTEIN/ CREATININE RATIO, URINE Lab Routine CKD (chronic kidney disease) stage 4, GFR 15-29 ml/min (HCC) 03/01/2024 3:30 PM EDT URINALYSIS WITH MICROSCOPIC EXAM Lab Routine CKD (chronic kidney disease) stage 4, GFR 15-29 ml/min (HCC) 03/01/2024 3:30 PM EDT Scheduled Orders Name Type Priority Associated Diagnoses Orde r Schedule PROTEIN/ CREATININE RATIO, URINE Lab Routine CKD (chronic kidney disease) stage 4, GFR 15-29 ml/min (HCC) Expected: 03/01/2024 (Approximate), Expires: 08/28/2024 URINALYSIS WITH MICROSCOPIC EXAM Lab Routine CKD (chronic kidney disease) stage 4, GFR 15-29 ml/min (HCC) Expected: 03/01/2024 (Approximate), Expires: 08/28/2024 Health Maintenance Due Date Last Done Comments Albumin/Creatinine Ratio 1958 DTaP,Tdap,and Td Vaccines (1 - Tdap) 1960 Zoster Vaccines (1 of 2) 1991 DXA Scan 2006 COVID-19 Vaccine (4 - season) 2023 07/14/2022, 07/14/2022, 11/25/2020, Additional history exists HbA1c 09/18/2023 03/18/2023, 08/18/2022 Diabetic Foot Exam 10/19/2023 10/19/2022 PTH 03/18/2024 03/18/2023, 08/18/2022 Depression Screening 04/19/2024 04/19/2023 Influenza Vaccine (FLU shot) (Season Ended) 2024 07/14/2022, 07/14/2022 GFR 09/01/2024 03/01/2024, 02/28, 08/18/2022, Additional history exists Diabetic Eye Exam 11/21/2024 11/21/2023, 11/21/2023 Hgb 03/01/2025 03/01/2024, 02/28, 08/18/2022 Nephrology Referral 03/01/2025 03/01/2024 Phosphate 03/01/2025 03/01/2024, 02/28, 08/18/2022 Pneumococcal Vaccine: [...] Not on filedocumented as of this encounter Results * MAGNESIUM (03/01/2024 3:24 PM EDT) Magnesium 2.0 1.5 - 2.6 mg/dL 03/01/2024 3:48 PM EDT [facility] 56- Blood Venous blood specimen / Unknown Venipuncture / Unknown 03/01/2024 3:24 PM EDT 03/01/2024 3:24 PM EDT Chico Vaughn MD LAB BLOOD ORDERABLES [facility] [address] [place] [address] documented in this encounter Visit Diagnoses Diagnosis CKD (chronic kidney disease) stage 4, GFR 15-29 ml/min (HCC)- Primary Chronic kidney disease, Stage IV (severe) documented in this encounter Care Teams Change Number Operator Relationship Specialty Start Date End Date Cecilia Madden DO [facility] [address] PCP - General Family Medicine 10/08/22 documented as of this encounter
--- OUTSIDE RECORDS SUMMARY | 2024-06-29 00:23 | External Medical Summary | Summary of Care ---
Author Name Unknown Organization [facility] Address [address] [place] [address] Phone [phone] Care Team Providers Care Retirement Actuary Name Role Phone Abdiyisel Cecilia Eddy DO Primary Care Provider Reason for Visit * Reason Onset Date Comments Test Results 03/02/2024 Encounter Details Date Type Department Care Team (Late st Contact Info) Description 03/02/2024 Telephone NephrologyMiller 200 [facility] [place] [address] Chico Vaughn MD [address] [facility] [place] [address] Test Results Allergies No known active allergiesdocumented as of this encounter (statuses as of 03/05/2024) Medications Medication Sig Dispensed Refills Start Date [...] stage 4, GFR 15-29 ml/min ([facility]) Take 1 Tablet by mouth in the morning. 0 03/23/2023 Active methIMAzole 5 MG Oral Tablet (Tapazole)Indicatio ns:Hyperthyroidism Take 0.5 Tablets by mouth in the morning. 45 Tablet 3 04/18/2023 Active Additional Information Patient not taking.Reported on 03/01/2024 Quintiq G7 Import Export Coordinator Device Use as directed. 0 Active Metoprolol [...] goal of less than 8.0% ([facility]) USE 3-4 TIMES DAILY FOR LONG AND SHORT ACTING INSULIN. 400 Each 2 09/28/2023 Active Vitamin D3 1.25 MG (49987 UT) Oral CapsuleIndications: Vitamin D deficiency Take 1 Capsule by mouth once a week. 12 Capsule 1 10/17/2023 Active NIFEdipine ER Osmotic Release 60 MG Oral Tablet Extended Release 24 Hour (Procardia XL) Take 1 Tablet by mouth in the morning. 90 Tablet 1 11/08/2023 Active Eliquis 2.5 MG Oral TabletIndications:P AF (paroxysmal atrial fibrillation) ([facility]) Take 1 Tablet by mouth in the morning and 1 Tablet before bedtime. 180 Tablet 0 01/18/2024 Active documented as of this encounter (statuses as of 03/05/2024) Active Problems Problem Noted Date Diagnosed Date [...] as of this encounter (statuses as of 03/05/2024) Immunizations Name Administration Dates Next Due Covid-19, Mrna, Lnp-s, Pf, B ivalent, 30 Mcg, IM, 12 yrs and above (4meee) 07/14/2022 Pneumococcal Conjugate Vaccine, 20-valent (Prevn ar20) [...] 05/02/2024 1:00 PM EDT Office Visit Cardiology, [facility] 132 [facility] [place] [address] Amber Flaherty IV, MD [address] [facility] [address] 07/20/2024 2:20 PM EDT Office Visit [facility]ph[facility], [facility] [address] Chico Vaughn MD 200 [facility] [place] [address] Scheduled Orders Name Type Priority Associated Diagnoses [...] (severe) documented in this encounter Care Teams Retirement Actuary Relationship Specialty Start Date End Date Cecilia Madden DO [address] [place] [address] PCP - General Family Medicine 10/08/22 documented as of this encounter
--- OUTSIDE RECORDS SUMMARY | 2024-06-29 00:23 | External Medical Summary ---
Author Name Unknown Address Unknown Organization [id number][place] [place] [address] [place] [address] Laboratory Report Ordering Provider Test Date Status COMFORT [place] 03/01/2024 15:30:26 Final Normal: <150 mg/ g creatinine
High: 150-500 mg/g creatinine
Very High: >500 mg/g creatinine
Nephrotic: >3000 mg/g creatinine Observation Date Value Abnormality Reference (Units ) Status Protein/Creatinine [Ratio] in Urine 03/01/2024 15:30:26 5294 Above high normal <150 (mg/g ) Final Protein, Urine 03/01/2024 15:30:26 180 (mg/dL) Final Creatinine, Urine 03/01/2024 15:30:26 34 (mg/dL) Final Performing Location [facility] [place] [facility] [address] [place] [address]
--- OUTSIDE RECORDS SUMMARY | 2024-06-29 00:23 | External Medical Summary | Summary of Care ---
Author Name Unknown Organization [facility] Address [address] [place] [address] Phone [phone] Care Team Providers Care Irrigation System Operator Name Role Phone Abdiyisel Cecilia Eddy DO Primary Care Provider Reason for Visit * Reason Onset Date Comments Test Results 03/02/2024 Encounter Details Date Type Department Care Team (Late st Contact Info) Description 03/02/2024 Telephone Nephrology[facility] 200 [facility] [place] [address] Chico Vaughn MD 200 [facility] [place] [address] Test Results Allergies No known active allergiesdocumented as of this encounter (statuses as of 03/09/2024) Medications Medication Sig Dispensed Refills Start Date [...] kidney disease) stage 4, GFR 15-29 ml/min ([facility]) Take 1 Tablet by mouth in the morning. 0 03/23/2023 Active methIMAzole 5 MG Oral Tablet (Tapazole)Indicat ions:Hyperthyroid ism Take 0.5 Tablets by mouth in the morning. 45 Tablet 3 04/18/2023 Active Additional Information Patient not taking.Reported on 03/01/2024 Zopa G7 Rolling Machine Operator Device Use as directed. 0 Act [...] hemoglobin A1c goal of less than 8.0% ([facility]) USE 3-4 TIMES DAILY FOR LONG AND SHORT ACTING INSULIN. 400 Each 2 09/28/2023 Active NIFEdipine ER Osmotic Release 60 MG Oral Tablet Extended Release 24 Hour (Procardia XL) Take 1 Tablet by mouth in the morning. 90 Tablet 1 11/08/2023 Active Eliquis 2.5 MG Oral TabletIndications :PAF (paroxysmal atrial fibrillation) ([facility]) Take 1 Tablet by mouth in the morning and 1 Tablet before bedtime. 180 Tablet 0 01/18/2024 Active Vitamin D3 1.25 MG (60708 UT) Oral CapsuleIndication s:Vitamin D deficiency Take 1 Capsule by mouth once a week. 12 Capsule 1 10/17/2023 Discontinue d(Patient preference/ discontinua tion) documented as of this encounter (statuses as of 03/09/2024) Active Problems Problem Noted Date Diagnosed Date [...] as of this encounter (statuses as of 03/09/2024) Immunizations Name Administration Dates Next Due Covid-19, Mrna, Lnp-s, Pf, B ivalent, 30 Mcg, IM, 12 yrs and above ([place]) 07/14/2022 Pneumococcal Conjugate Vaccine, 20-valent (Prevn ar20) [...] as of this encounter Miscellaneous Notes * Addendum Note - Earnestine Jose RN - 03/09/2024 9:30 AM EDTAddended by: EARNESTINE JOSE on: 03/09/2024 09:30 AM Modules accepted: Orders * Telephone Encounter - Earnestine Jose RN - 03/09/2024 9:28 AM EDT Te with pt and then with her regarding lab results and medication changes. He repeated in understanding to stop Vitamin D 84914 units weekly and then resume 1000 Units daily beginning in April. HE is aware that she should repeat lab tests weekly. He states that they are monitoring her diet. Order placed for labs and med list updated. * Telephone Encounter - Terri Suarez LPN - 03/07/2024 2:49 PM EDT LMM to return call to our office * Telephone Encounter - Medina Huertas OSA - 03/07/2024 2:45 PM EDT Kelvin lópez, Pt , Channing, returning call. Please contact Channing to go over results and instructions. Thank you! * Telephone Encounter - Earnestine Jose RN - 03/06/2024 1:15 PM EDT LMAM with call back number regarding lab results. * Telephone Encounter - Terri Suarez LPN - 03/05/2024 2:37 PM EDT LMM to return call to our office regarding * Telephone Encounter - Earnestine Jose RN - 03/02/2024 12:24 PM EDT ----- Message from Chico Vaughn MD sent at 03/02/2024 11:50 AM EDT ----- Regarding: labs Also CBC with diff every month with renal panel * Telephone Encounter - Earnestine Jose RN - 03/02/2024 12:22 PM EDT AM regarding lab results. Call back number given. Future labs ordered. * Telephone Encounter - Earnestine Jose RN - 03/02/2024 12:22 PM EDT ----- [...] 05/02/2024 1:00 PM EDT Office Visit Cardiology, [facility] 132 [facility] [place] [address] Amber Flaherty IV, MD [address] [place] [address] 07/20/2024 2:20 PM EDT Office Visit Nephrology, [place] 200 [facility] [place] [address] Chico Vaughn MD 200 [facility] [place] [address] Scheduled Orders Name Type Priority Associated Diagnoses [...] (HCC) Every Month for 12 Occurrences starting 03/09/2024 until 03/09/2025 Health Maintenance Due Date Last Done Comments [...] (severe) documented in this encounter Care Teams Irrigation System Operator Relationship Specialty Start Date End Date Cecilia Madden DO [address] [place] [address] PCP - General Family Medicine 10/08/22 documented as of this encounter
--- OUTSIDE RECORDS SUMMARY | 2024-06-29 00:23 | External Medical Summary ---
Author Name Unknown Address Unknown Organization K09:[facility] [place] [address] Laboratory Report Ordering Provider Test Date Status COMFORT HEADLEY 03/01/2024 15:24:06 Final Observation Date Value Abnormality Reference (Units ) Status Magnesium 03/01/2024 15:24:06 2.0 1.5-2.6 (m g/dL) Final Performing Location [facility] [address]
--- OUTSIDE RECORDS SUMMARY | 2024-06-29 00:23 | External Medical Summary | Summary of Care ---
Author Name Unknown Organization [facility] Address [address] [place] [address] Phone [phone] Care Team Providers Care Network Director Name Role Phone Abdiyisel Cecilia Eddy DO Primary Care Provider Reason for Visit * Reason Onset Date Comments Test Results 03/02/2024 Encounter Details Date Type Department Care Team (Late st Contact Info) Description 03/02/2024 Telephone NephrologyMiller [address] [facility] [place] [address] Chico Vaughn MD [address] [facility] [place] [address] Test Results Allergies No known active allergiesdocumented as of this encounter (statuses as of 03/06/2024) Medications Medication Sig Dispensed Refills Start Date [...] kidney disease) stage 4, GFR 15-29 ml/min ([facility]) Take 1 Tablet by mouth in the morning. 0 03/23/2023 Active methIMAzole 5 MG Oral Tablet (Tapazole)Indicatio ns:Hyperthyroidism Take 0.5 Tablets by mouth in the morning. 45 Tablet 3 04/18/2023 Active Additional Information Patient not taking.Reported on 03/01/2024 NuScriptRx G7 Direct Care Counselor Device Use as directed. 0 Active Metoprolol [...] hemoglobin A1c goal of less than 8.0% ([facility]) USE 3-4 TIMES DAILY FOR LONG AND SHORT ACTING INSULIN. 400 Each 2 09/28/2023 Active Vitamin D3 1.25 MG (29733 UT) Oral CapsuleIndications: Vitamin D deficiency Take 1 Capsule by mouth once a week. 12 Capsule 1 10/17/2023 Active NIFEdipine ER Osmotic Release 60 MG Oral Tablet Extended Release 24 Hour (Procardia XL) Take 1 Tablet by mouth in the morning. 90 Tablet 1 11/08/2023 Active Eliquis 2.5 MG Oral TabletIndications:P AF (paroxysmal atrial fibrillation) ([facility]) Take 1 Tablet by mouth in the morning and 1 Tablet before bedtime. 180 Tablet 0 01/18/2024 Active documented as of this encounter (statuses as of 03/06/2024) Active Problems Problem Noted Date Diagnosed Date [...] as of this encounter (statuses as of 03/06/2024) Immunizations Name Administration Dates Next Due Covid-19, Mrna, Lnp-s, Pf, B ivalent, 30 Mcg, IM, 12 yrs and above ([facility]) 07/14/2022 Pneumococcal Conjugate Vaccine, 20-valent (Prevn ar20) [...] 05/02/2024 1:00 PM EDT Office Visit Cardiology, [address] [place] [address] Amber Flaherty IV, MD [address] [place] [address] 07/20/2024 2:20 PM EDT Office Visit Nephrology, [place] [address] [place] [address] Chico Vaughn MD 200 [place] [address] Scheduled Orders Name Type Priority Associated Diagnoses [...] (severe) documented in this encounter Care Teams Network Director Relationship Specialty Start Date End Date Cecilia Madden DO [address] [place] [address] PCP - General Family Medicine 10/08/22 documented as of this encounter
--- OUTSIDE RECORDS SUMMARY | 2024-06-29 00:24 | External Medical Summary ---
Author Name Unknown Address Unknown Organization K09:[facility] [place] [address] Laboratory Report Ordering Provider Test Date Status COMFORT HEADLEY 03/01/2024 15:24:06 Final Observation Date Value Abnormality Reference (Units ) Status WBC, Total 03/01/2024 15:24:06 8.03 4.00-10.8 0 (K/uL) Final RBC 03/01/2024 15:24:06 3.44 3.85-5.15 (M/uL) Final Hemoglobin 03/01/2024 15:24:06 9.6 Below low normal 12 .0-15.3 (g/dL) Final HCT 03/01/2024 15:24:06 30.9 Below low normal 36. 0-45.2 (%) Final MCV 03/01/2024 15:24:06 89.8 81.5-97.5 (fL) Final MCH 03/01/2024 15:24:06 27.9 27.0-34.0 (pg) Final MCHC 03/01/2024 15:24:06 31.1 32.0-36.0 (g/dL) Final RDW 03/01/2024 15:24:06 12.9 11.5-15.5 (%) Final Platelets 03/01/2024 15:24:06 203 140-400 (K /uL) Final MPV 03/01/2024 15:24:06 10.8 6.6-11.1 ( fL) Final Performing Location [facility] [place] [address]
--- OUTSIDE RECORDS SUMMARY | 2024-06-29 00:24 | External Medical Summary ---
Author Name Unknown Address Unknown Organization K09:[facility] [address] Laboratory Report Ordering Provider Test Date Status COMFORT HEADLEY 03/01/2024 15:24:06 Final Observation Date Value Abnormality Reference (Units ) Status SYNC LEUKOCYTES IN BLOOD BY AUTOMATED COUNT 03/01/2024 15:24:06 8.03 4.00-10.80 (K/uL) Final Segs 03/01/2024 15:24:06 65.6 40.0-75.0 (%) Final Lymphs % 03/01/2024 15:24:06 25.4 18.0-42.0 (%) Final Monos 03/01/2024 15:24:06 7.1 1.0-11.0 (%) Final Eosinophils 03/01/2024 15:24:06 1.2 0.0-6.0 (%) Final Basos 03/01/2024 15:24:06 0.7 0.0-2.0 (%) Final Absolute Segs 03/01/2024 15:24:06 5.26 1.80-7.70 (K/uL) Final Lymphs, absolute 03/01/2024 15:24:06 2.04 1.00-4.80 (K/ul) Final Monos, Abs 03/01/2024 15:24:06 0.57 0.00-1.10 (K/uL) Final Eos, Abs 03/01/2024 15:24:06 0.10 0.00-0.70 (K/uL) Final Basos, Abs 03/01/2024 15:24:06 0.06 0.00-0.20 (K/uL) Final Performing Location [facility] [place] [address]
--- OUTSIDE RECORDS SUMMARY | 2024-06-29 00:24 | External Medical Summary ---
Author Name Unknown Address Unknown Organization K01:[facility] - [address] [place] [address] Laboratory Report Ordering Provider Test Date Status COMFORT HEADLEY 03/01/2024 15:24:06 Final Observation Date Value Abnormality Reference (Units ) Status Parathyrin.intact [Mass/volume] in Serum or Plasma 03/01/2024 15:24:06 221 Above high normal 15-65 (pg/mL) Final Performing Location [facility] - [address] [place] [address]
--- OUTSIDE RECORDS SUMMARY | 2024-06-29 00:24 | External Medical Summary | Summary of Care ---
Author Name Unknown Organization [facility] Address [address] [place] [address] Phone [phone] Care Team Providers Care Assemblies And Installations Inspector Name Role Phone Carlos Madden DO Primary Care Provider Reason for Visit * Reason Onset Date Comments Medication Refill 01/17/2024 Encounter Details Date Type Department Care Team (Late st Contact Info) Description 01/17/2024 Refill Family Practice [facility] [address] [place] [address] Carlos Madden DO [address] [place] [address] PAF (paroxysmal atrial fibrillation) (HCC) Allergies No known active allergiesdocumented as of this encounter (statuses as of 01/18/2024) Medications Medication Sig Dispensed Refills Start Date [...] the morning. 45 Tablet 3 04/18/2023 Active Dexcom G7 Rag Baler Device Use as directed. 0 Act shi Metoprolol Tartrate 50 MG Oral Tablet (Lopressor) TAKE 1 TABLET (50 MG) BY MOUTH EVERY EVENING. IN ADDITION TO 100MG IN THE MORNING. 60 Tablet 11 05/05/2023 Active Basaglar KwikPen 100 UNIT/ML Subcutaneous Solution Pen-injector At 10 am Inject under the skin 16 Units 45 mL 2 05/09/2023 Active Atorvastatin Calcium 40 MG Oral Tablet (Lipitor)Indicati ons:Hyperlipidemi a with target LDL less than 100 TAKE 1 TABLET BY MOUTH EVERY DAY IN THE MORNING 90 Tablet 3 09/12/2023 Active BD Pen Needle Mini U/F 31G X 5 MM (Insulin Pen Needle)Indication s:Type 2 diabetes mellitus with hemoglobin A1c goal of less than 8.0% ([facility]) USE 3-4 TIMES DAILY FOR LONG AND SHORT ACTING INSULIN. 400 Each 2 09/28/2023 Active Vitamin D3 1.25 MG (10637 UT) Oral CapsuleIndication s:Vitamin D deficiency Take 1 Capsule by mouth once a week. 12 Capsule 1 10/17/2023 Active NIFEdipine ER Osmotic Release 60 MG Oral Tablet Extended Release 24 Hour (Procardia XL) Take 1 Tablet by mouth in the morning. 90 Tablet 1 11/08/2023 Active Eliquis 2.5 MG Oral TabletIndications :PAF (paroxysmal atrial fibrillation) ([facility]) Take 1 Tablet by mouth in the morning and 1 Tablet before bedtime. 180 Tablet 0 01/18/2024 Active Eliquis 2.5 MG Oral TabletIndications :PAF (paroxysmal atrial fibrillation) ([facility]) Take 1 Tablet by mouth in the morning and 1 Tablet before bedtime. 180 Tablet 3 05/04/2023 4 Discontinue d(Refill) documented as of this encounter (statuses as of 01/18/2024) Active Problems Problem Noted Date Diagnosed Date [...] as of this encounter (statuses as of 01/18/2024) Immunizations Name Administration Dates Next Due Covid-19, Mrna, Lnp-s, Pf, B ivalent, 30 Mcg, IM, 12 yrs and above ([facility]) 07/14/2022 Pneumococcal Conjugate Vaccine, 20-valent (Prevn ar20) [...] encounter Miscellaneous Notes * Telephone Encounter - Annie Pruett RP - 01/18/2024 3:42 PM EDTSigned Prescriptions: Disp Refills Eliquis 2.5 MG Oral Tablet 180 Ta*0 Sig: Take 1 Tablet by mouthin the morning and 1 Tablet before bedtime.Authorizing Provider: CARLOS MADDEN User: ANNIE PRUETT * Telephone Encounter - Annie Pruett RPh - 01/18/2024 3:42 PM EDT Re-routed balance of 05/04/23 RX as requested. Thanks, Annie Pruett Rph, Pharm D. Clinical Pharmacist [facility] (Formerly Telepharmacy)/[facility] [phone] 01/18/2024,3:42 PM * Telephone Encounter - Diamond Melendez PHARM Tech - 01/17/2024 3:53 PM EDT Please reroute Rx to [id number] Pending Prescriptions: Disp Refills Eliquis 2.5 MG Oral Tablet 180 Ta*3 Sig: Take 1 Tablet by mouth in the morning and 1 Tablet before bedtime. Last Visit: 04/19/2023 (in office), 06/29/2022 (telemedicine) Visit date not found If no future appointments scheduled, and last appointment is greater than a year ago, please schedule patient for a follow-up appointment Last date the medication was ordered: 05/04/2023 Patient Phone Numbers Labs: Lab Results Component Value Date/Time CREAT 2.0 (H) 03/18/2023 03:23 PM POTASSIUM 5.3 (H) 03/18/2023 03:23 PM TSH 0.01 (L) 03/18/2023 03:23 PM LDLCALC 62 03/18/2023 03:23 PM LDLDIRECT 83 07/13/2022 12:17 PM ALT 45 (H) 08/18/2022 03:25 PM HGBA1C 7.8 (H) 03/18/2023 03:23 PM documented in this encounter Plan of Treatment Upcoming Encounters Date Type Department Care Team (Late st Contact Info) Description 03/01/2024 2:20 PM EDT Office Visit [facility] [address] [place] [address] Chico Vaughn MD 200 [facility] [place] [address] Health Maintenance Due Date Last Done Comments Albumin/Creatinine Ratio 1959 Diabetic Eye Exam 1959 Hgb 1959 DTaP,Tdap,and Td Vaccines (1 - Tdap) 1960 Zoster Vaccines (1 of 2) 1991 DXA Scan 2006 COVID-19 Vaccine ( - season) 2023 07/14/2022, 07/14/2022, 11/25/2020, Additional history exists Influenza Vaccine (FLU shot) (#1) 2023 07/14/2022, 07/14/2022 GFR 09/18/2023 03/18/2023, 07/31, 07/13/2022, Additional history exists HbA1c 09/18/2023 03/18/2023, 08/18/2022 Diabetic Foot Exam 10/19/2023 10/19/2022 Nephrology Referral 03/18/2024 03/18/2023 PTH 03/18/2024 03/18/2023, 08/18/2022 Phosphate 03/18/2024 03/18/2023, 08/18/2022 Depression Screening 04/19/2024 04/19/2023 Pneumococcal Vaccine: 65+ Years Completed 09/10/2022 [facility]-HPV [...] as of this encounter Visit Diagnoses Diagnosis PAF (paroxysmal atrial fibrillation) (HCC) Atrial fibrillation documented in this encounter Care Teams Assemblies And Installations Inspector Relationship Specialty Start Date End Date Carlos Madden DO [address] [place] [address] PCP - General Family Medicine 10/08/22 documented as of this encounter
--- OUTSIDE RECORDS SUMMARY | 2024-06-29 00:24 | External Medical Summary | Summary of Care ---
Author Name Unknown Organization [facility] Address [address] [facility] [place] [address] Phone [phone] Care Team Providers Care Dynamicist Name Role Phone AbdiyiselCecilia DO Primary Care Provider Encounter Details Date Type Department Care Team (Late st Contact Info) Description 02/28/2024 Orders Only PATIENT PORTAL DO NOT DELETE THIS DEPT USED BY [place] [id number] Allergies No known active allergiesdocumented as of this encounter (statuses as of 02/28/2024) Medications Medication Sig Dispensed Refills Start Date [...] 45 Tablet 3 04/18/2023 Active Dexcom G7 Product Evangelist Device Use as directed. 0 Active Metoprolol Tartrate 50 MG Oral Tablet (Lopressor) TAKE 1 TABLET (50 MG) BY MOUTH EVERY EVENING. IN ADDITION TO 100MG IN THE MORNING. 60 Tablet 11 05/05/2023 Active Basaglar KwikPen 100 UNIT/ML Subcutaneous Solution Pen-injector At 10 am Inject under the skin 16 Units 45 mL 2 05/09/2023 Active Atorvastatin Calcium 40 MG Oral Tablet (Lipitor)Indication [...] 2 09/28/2023 Active Vitamin D3 1.25 MG (18071 UT) Oral CapsuleIndications: Vitamin D deficiency Take 1 Capsule by mouth once a week. 12 Capsule 1 10/17/2023 Active NIFEdipine ER Osmotic Release 60 MG Oral Tablet Extended Release 24 Hour (Procardia XL) Take 1 Tablet by mouth in the morning. 90 Tablet 1 11/08/2023 Active Eliquis 2.5 MG Oral TabletIndications:P AF (paroxysmal atrial fibrillation) ([facility]) Take 1 Tablet by mouth in the morning and 1 Tablet before bedtime. 180 Tablet 0 01/18/2024 Active documented as of this encounter (statuses as of 02/28/2024) Active Problems Problem Noted Date Diagnosed Date [...] as of this encounter (statuses as of 02/28/2024) Immunizations Name Administration Dates Next Due Covid-19, [...] 2:20 PM EDT Office Visit [facility] [address] [place] [address] Chico Vaughn MD [address] [place] [address] 05/02/2024 1:00 PM EDT Office Visit Cardiology, [facility] [address] [facility] [place] [address] Amber Flaherty IV, MD [address] [place] [address] Health Maintenance Due Date Last Done Comments Albumin/Creatinine Ratio 1959 Diabetic Eye Exam 1959 DTaP,Tdap,and Td Vaccines (1 - Tdap) 1960 Zoster Vaccines (1 of 2) 1991 DXA Scan 2006 COVID-19 Vaccine (4 - season) 2023 07/14/2022, 07/14/2022, 11/25/2020, Additional history exists GFR 09/18/2023 03/18/2023, 07/31, 07/13/2022, Additional history exists HbA1c 09/18/2023 03/18/2023, 08/18/2022 Diabetic Foot Exam 10/19/2023 10/19/2022 Hgb 03/18/2024 03/18/2023, 08/18/2022 Nephrology Referral 03/18/2024 03/18/2023 PTH 03/18/2024 03/18/2023, 08/18/2022 Phosphate 03/18/2024 03/18/2023, 08/18/2022 Depression Screening 04/19/2024 04/19/2023 Influenza Vaccine (FLU shot) (Season Ended) 2024 07/14/2022, 07/14/2022 Pneumococcal Vaccine: 65+ Years Completed 09/10/2022 [facility]ASIL-HPV [...] filedocumented as of this encounter Care Teams Dynamicist Relationship Specialty Start Date End Date Cecilia Madden DO [address] [place] [address] PCP - General Family Medicine 10/08/22 documented as of this encounter
--- OUTSIDE RECORDS SUMMARY | 2024-06-29 00:24 | External Medical Summary | Summary of Care ---
Author Name Unknown Organization [facility] Address [address] [place] [address] Phone [phone] Care Team Providers Care Furniture Shampooer Name Role Phone Abdiyisel Cecilia Eddy DO Primary Care Provider Reason for Visit * Reason Onset Date Comments Outpatient Testing 02/22/2024 Encounter Details Date Type Department Care Team (Late st Contact Info) Description 02/22/2024 Telephone NephrologyMiller [address] [place] [address] Chico Vaughn MD 200 [facility] [place] [address] Outpatient Testing Allergies No known active allergiesdocumented as of this encounter (statuses as of 02/22/2024) Medications Medication Sig Dispensed Refills Start Date [...] 45 Tablet 3 04/18/2023 Active Dexcom G7 Motorized Squad Captain Device Use as directed. 0 Active Metoprolol [...] hemoglobin A1c goal of less than 8.0% ([facility]) USE 3-4 TIMES DAILY FOR LONG AND SHORT ACTING INSULIN. 400 Each 2 09/28/2023 Active Vitamin D3 1.25 MG (31043 UT) Oral CapsuleIndications: Vitamin D deficiency Take 1 Capsule by mouth once a week. 12 Capsule 1 10/17/2023 Active NIFEdipine ER Osmotic Release 60 MG Oral Tablet Extended Release 24 Hour (Procardia XL) Take 1 Tablet by mouth in the morning. 90 Tablet 1 11/08/2023 Active Eliquis 2.5 MG Oral TabletIndications:P AF (paroxysmal atrial fibrillation) ([facility]) Take 1 Tablet by mouth in the morning and 1 Tablet before bedtime. 180 Tablet 0 01/18/2024 Active documented as of this encounter (statuses as of 02/22/2024) Active Problems Problem Noted Date Diagnosed Date [...] as of this encounter (statuses as of 02/22/2024) Immunizations Name Administration Dates Next Due Covid-19, Mrna, Lnp-s, Pf, B ivalent, 30 Mcg, IM, 12 yrs and above ([facility]) 07/14/2022 Pneumococcal Conjugate Vaccine, 20-valent (Prevn ar20) [...] Telephone Encounter - Earnestine Dexter RN - 02/22/2024 1:46 PM EDT Ckd protocol ordered. Pt made aware by phone. She will call back with any questions. documented in this encounter Plan of Treatment Upcoming Encounters Date Type Department Care Team (Late st Contact Info) Description 03/01/2024 2:20 PM EDT Office Visit Nephrology, [place] [address] [facility] [place] [address] Chico Vaughn MD 200 [facility] [place] [address] 05/02/2024 1:00 PM EDT Office Visit Cardiology, [facility] [address] [facility] [place] [address] Amber Flaherty IV, MD [address] [place] [address] Scheduled Orders Name Type Priority Associated Diagnoses Orde r Schedule 25-HYDROXY VITAMIN D Lab STAT CKD (chronic kidney disease) stage 4, GFR 15-29 ml/min (HCC) Vitamin D deficiency Expected: 02/22/2024, Expires: 02/21/2025 ALBUMIN / CREATININE RATIO, URINE Lab STAT CKD (chronic kidney disease) stage 4, GFR 15-29 ml/min (HCC) Expected: 02/22/2024, Expires: 02/21/2025 HGB Lab STAT CKD (chronic kidney disease) stage 4, GFR 15-29 ml/min (HCC) Expected: 02/22/2024, Expires: 02/21/2025 FERRITIN Lab STAT CKD (chronic kidney disease) stage 4, GFR 15-29 ml/min (HCC) Expected: 02/22/2024, Expires: 02/21/2025 IRON SCREEN, INCLUDING TIBC Lab STAT CKD (chronic kidney disease) stage 4, GFR 15-29 ml/min (HCC) Expected: 02/22/2024, Expires: 02/21/2025 PTH Lab STAT CKD (chronic kidney disease) stage 4, GFR 15-29 ml/min (HCC) Expected: 02/22/2024, Expires: 02/21/2025 RENAL FUNCTION PANEL Lab STAT CKD (chronic kidney disease) stage 4, GFR 15-29 ml/min (HCC) Expected: 02/22/2024, Expires: 02/21/2025 Health Maintenance Due Date Last Done Comments [...] Primary Chronic kidney disease, Stage IV (severe) Vitamin D deficiency Unspecified vitamin D deficiency documented in this encounter Care Teams Furniture Shampooer Relationship Specialty Start Date End Date Cecilia Madden DO [address] [place] [address] PCP - General Family Medicine 10/08/22 documented as of this encounter
--- NOTE | 2024-06-29 00:40 | History & Physical Report ---
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 As per son for last 2- 3 days patient appetites been very low. She was also coughing. Feeling very weak. Patient's and's grandson has COVID. As per son no nausea /vomiting and no diarrhea. Ambulates with a walker and her helps her ambulate. Patient currently able to tell her name, knows that she is in the hospital, could tell current month and year and knows her date of . Patient denies any headache. Denies nausea. Denies chest pain. Denies shortness of breath. Denies abdominal pain. States normal bowel and bladder movements. Hemodynamics are okay. Saturating okay on room air. Patient lives both in [place] and [place]. Follows nephrology in [place] and also in [place] Weakness Some confusion Mostly from COVID Gentle fluids Close monitor PT OT when stable COVID COVID precautions Supportive care Close monitor ABEL on CKD stage IV Baseline creatinine 3.2 Patient's creatinine today 4.09 Avoid nephrotoxic agents Gentle fluids Will follow labs in a.m. 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 Do not have records IV Lopressor as needed Mild elevation troponin Mostly demand ischemia Will follow serial enzymes Chronic diastolic CHF Monitor for volume overload Hypertension On metoprolol succinate and nifedipine Will monitor History of TIA On aspirin Plavix and statin Anemia of chronic kidney disease Hemoglobin 9.6 Will check stool for Hemoccult Follow labs DVT prophylaxis Heparin subcu Disposition Med/telemetry Full code as per my discussion with the son. Son Ph No: [phone]. History of Present Illness Chief Complaint: Weakness confusion and COVID Primary Care Provider: NO PCP 83-year-old female with past med history significant for type 2 diabetes, proteinuria due to type 2 diabetes, CKD stage IV, hyperlipidemia, hyperthyroidism, hyperparathyroidism, right thyroid nodule, paroxysmal atrial fibrillation, chronic diastolic CHF, hypertension, history of TIA, history of status post left hip replacement who lives with her family, son and was brought in because of confusion, weakness and found to have COVID. As per son for last 2- 3 days patient appetites been very low. She was also coughing. Feeling very weak. Patient's and's grandson has COVID. As per son no nausea /vomiting and no diarrhea. Ambulates with a walker and her helps her ambulate. Patient currently able to tell her name, knows that she is in the hospital, could tell current month and year and knows her date of . Patient denies any headache. Denies nausea. Denies chest pain. Denies shortness of breath. Denies abdominal pain. States normal bowel and bladder mo vements. Hemodynamics are okay. Saturating okay on room air. Patient lives both in [place] and [place]. Follows nephrology in [place] and also in [place] Past medical history. As mentioned above Past surgical history. As per son patient recently had watchman's procedure. History of left hip replacement. Social history. . No smoking. 1 glass of wine nightly as per [employer] No drug use. Family history. No family history on file Allergies Allergy/AdvReac Type Severity Reaction Status Date / Time No Known Allergies Allergy Verified 06/28/24 17:33 Home Medications Medication Instructions Recorded Confirmed Type aspirin 81 mg tablet,delayed 81 mg PO QAM 06/28/24 06/28/24 History release atorvastatin 40 mg tablet 40 mg PO QAM 06/28/24 06/28/24 History clopidogrel 75 mg tablet 75 mg PO QAM 06/28/24 06/28/24 History ezetimibe 10 mg tablet 10 mg PO DAILY 06/28/24 06/28/24 History insulin aspart U-100 100 unit/mL 0 sliding scale dose continuous 06/28/24 06/28/24 History subcutaneous solution (Novolog subcutaneous infusion CONTINOUS U-100 Insulin aspart) metoprolol succinate 100 mg 100 mg PO QPM 06/28/24 06/28/24 History tablet,extended release 24 hr nifedipine 60 mg tablet,extended 60 mg PO QAM 06/28/24 06/28/24 History release 24 hr sodium bicarbonate 650 mg tablet 1,300 mg PO BID 06/28/24 06/28/24 History Past Med/Surg History Problem List (Updated 06/29/24 @ 00:36 by Fortunato Jefferson MD) Weakness COVID-19 virus infection (Acute) Social History Smoking Status: Unknown if ever smoked Do You Dip or Chew Tobacco: No; Hx Alcohol Use: No Hx Substance Use: No Preferred Language: Telugu Emr Trainer Required: No Beliefs That Will Affect Care: None Current Living Situation: Spouse and Family Other Information That Helps Us Care for You: No Feels Safe at Home: Yes Safety Concerns: Feels Safe At This Time Review of Systems Review of Systems: All systems reviewed & are unremarkable except as noted in HPI & below Physical Exam Physical Exam: General-Not in acute distress. Head- atraumatic Eyes- PERRL ENT- oropharynx clear Neck- supple, no JVD. Lungs- clear to auscultation no wheezing or crackles. Heart- regular rhythm; no murmur, no gallop. Abdomen- normal bowel sounds, soft, nontender, no distension Extremities- no pretibial edema, no erythema seen Neuro- alert, oriented PERRL, no facial palsy; no dysarthria; moves extremities. Results & Data Results & Data Vital Signs (Past 12 Hours) Vital Signs Temp Pulse Pulse Resp BP BP Pulse Ox 06/28/24 23:46 108 H 16 122/71 97 06/28/24 22:45 104 H 06/28/24 22:00 108 H 19 122/97 96 06/28/24 20:52 113 H 19 129/77 96 06/28/24 18:49 137 H 06/28/24 18:24 98 06/28/24 18:24 117 H 18 98 06/28/24 18:22 103 H 20 161/86 H 100 06/28/24 17:30 36.5 C 111 H 18 117/74 98 O2 Del Method 06/28/24 23:46 Room Air 06/28/24 22:45 06/28/24 22:00 06/28/24 20:52 Room Air 06/28/24 18:49 06/28/24 18:24 Room Air 06/28/24 18:24 Room Air 06/28/24 18:22 Room Air 06/28/24 17:30 Room Air Diagnostic Findings Laboratory Results WBC 9.42 K/ul (4.8-10.8) 06/28/24 17:50 RBC 3.36 M/uL (4.20-5.40) L 06/28/24 17:50 Hgb 9.6 g/dl (12.0-16.0) L 06/28/24 17:50 Hct 29.7 % (37.0-47.0) L 06/28/24 17:50 MCV 88.4 fL (80.0-100.0) 06/28/24 17:50 MCH 28.6 pg (25.0-34.0) 06/28/24 17:50 MCHC 32.3 g/dL (32.0-36.0) 06/28/24 17:50 RDW Std Deviation 42.5 fL (36.4-46.3) 06/28/24 17:50 RDW Coeff of Sean 13.1 % (11.5-14.5) 06/28/24 17:50 Plt Count 156 K/uL (130-400) 06/28/24 17:50 MPV 11.7 fL (9.4-12.4) 06/28/24 17:50 Immature Gran % (Auto) 2.0 % 06/28/24 17:50 Neut % (Auto) 71.6 % 06/28/24 17:50 Lymph % (Auto) 11.9 % 06/28/24 17:50 [place] % (Auto) 13.9 % 06/28/24 17:50 Eos % (Auto) 0.0 % 06/28/24 17:50 Baso % (Auto) 0.6 % 06/28/24 17:50 Neut # (Auto) 6.74 K/uL (1.40-6.50) H 06/28/24 17:50 Lymph # (Auto) 1.12 K/uL (1.20-3.40) L 06/28/24 17:50 [place] # (Auto) 1.31 K/uL (0.11-0.59) H 06/28/24 17:50 Eos # (Auto) 0.00 K/uL (0.00-0.50) 06/28/24 17:50 Baso # (Auto) 0.06 K/uL (0.00-0.20) 06/28/24 17:50 Immature Gran # (Auto) 0.19 K/uL (0.01-0.20) 06/28/24 17:50 Sodium 136 mmol/L (136-145) 06/28/24 17:50 Potassium 4.2 mmol/L (3.5-5.1) 06/28/24 17:50 Chloride 99 mmol/L (98-107) 06/28/24 17:50 Carbon Dioxide 24 mmol/L (21-32) 06/28/24 17:50 Anion Gap 13 (3-11) H 06/28/24 17:50 BUN 85 mg/dl (6-23) H 06/28/24 17:50 Creatinine 4.09 mg/dl (0.6-1.2) H 06/28/24 17:50 Est Cr Clr Drug Dosing Not Reportable 06/28/24 17:50 Est GFR ( Amer) 11.1 ml/min 06/28/24 17:50 Est GFR (Non-Af Amer) 9.5 ml/min 06/28/24 17:50 BUN/Creatinine Ratio 20.8 (10-20) H 06/28/24 17:50 Glucose 235 mg/dl (70-99(Fasting)) H 06/28/24 17:50 POC Glucose 208 mg/dl (70-99) H 06/28/24 23:31 Calcium 9.6 mg/dl (8.6-10.3) 06/28/24 17:50 Magnesium 2.3 mg/dl (1.7-2.4) 06/28/24 17:50 Total Bilirubin 0.4 mg/dl (0.2-1.0) 06/28/24 17:50 AST 13 U/L (13-39) 06/28/24 17:50 ALT 7 U/L (7-52) 06/28/24 17:50 Alkaline Phosphatase 86 U/L (34-104) 06/28/24 17:50 Troponin I High Sens 17.2 pg/ml (0-14) H 06/28/24 17:50 Total Protein 7.7 gm/dl (6.0-8.3) 06/28/24 17:50 Albumin 4.1 gm/dl (3.4-5.0) 06/28/24 17:50 Globulin 3.6 gm/dl (2.5-4.0) 06/28/24 17:50 Albumin/Globulin Ratio 1.1 (0.9-2) 06/28/24 17:50 SARS-CoV-2 (PCR) POSITIVE (Negative) A 06/28/24 18:11 Influenza Type A (PCR) Negative (Neg) 06/28/24 18:11 Influenza Type B (PCR) Negative (Neg) 06/28/24 18:11 RSV (RT-PCR) Negative (Neg) 06/28/24 18:11 Impressions Chest X-Ray 06/28/24 17:33 XR chest 1V not portable CLINICAL HISTORY: WEAKNESS COMPARISON STUDY: Chest radiograph 08/06/2024. FINDINGS: Lung volumes are normal. Lungs are clear. There is no pneumothorax or pleural effusion. Cardiac size is normal. Mediastinal contours are normal. There is no evidence for pulmonary edema. An occluder device projects over the left heart. IMPRESSION: No acute cardiopulmonary findings. ACT 112: Negative or not required by law. Electronically signed by: Jossue Ernandez M.D. 06/28/2024 6:[address] 06/28/24 17:34 Exam(s): CT HEAD Without Contrast EXAM: CT Head Without Intravenous Contrast CLINICAL HISTORY: Reason for exam: FALL, WEAKNESS. TECHNIQUE: Axial computed tomography images of the head/brain without intravenous contrast. CTDI is 142.6 mGy and DLP is 1796.57 mGy-cm. Automated exposure control was utilized for the study. A dose lowering technique was utilized adhering to the principles of ALARA. Moderate motion artifact in spite of repeat scanning. COMPARISON: None. FINDINGS: Brain: No mass effect or acute infarct. No acute hemorrhage. Moderate atrophy and chronic white matter disease. Ventricles: No hydrocephalus or midline shift. Bones/joints: Previous left frontal craniotomy. No acute skull fracture. Soft tissues: No scalp hematoma. Visualized Sinuses: Clear. Mastoid air cells: No mastoid effusion. IMPRESSION: 1. Moderate age-related findings. 2. No skull fracture, bleed, or acute intracranial abnormality. Electronically signed by: Veronica Jaems M.D. 06/28/24 20:52 PM ECG Additional Comments: ECG A-fib with rapid ventricular response rate of [address] depression lateral leads. Poor quality EKG. Code Status & VTE Plan VTE Prophylaxis Plan VTE Prophylaxis will be ordered: Yes
[2024-06-29] MEDS ORDERED: NITROGLYCERIN SL 0.4 MG/TAB TAB SL PRN (00:58)
[2024-06-29] MEDS ORDERED: GLUCOSE 10 TAB/TUBE PO PRN (00:58)
[2024-06-29] MEDS ORDERED: DEXTROSE 50% 50 ML SYRINGE IV PRN (00:58)
[2024-06-29] MEDS ORDERED: GLUCOSE 40% GEL 15 GM TUBE PO PRN (00:58)
[2024-06-29] MEDS ORDERED: ACETAMINOPHEN 325 MG TAB PO PRN (00:58)
[2024-06-29] MEDS ORDERED: GLUCAGON FOR INJ 1 MG VIAL SQ PRN (00:58)
[2024-06-29] MEDS ORDERED: CARBOHYDRATES FOR HYPOGLYCEMIA PO PRN (00:58)
[2024-06-29] MEDS: SODIUM CHLORIDE 0.9% 1,000 ML IV SCH (01:50)
[2024-06-29 03:39] LABS: Appearance Urine Turbid (Clear); Bacteria Urine Automated 4+ (None Seen); Bilirubin Urine Negative (Negative); Blood Urine 3+ (Negative); Color Urine Yellow; Glucose Urine UA 1+ (Negative); Ketones Urine 1+ (Negative); Leukocyte Esterase Urine 3+ (Negative); Nitrite Urine Negative (Negative); Protein Urine 3+ (Negative); RBC Urine Automated 0-2 /hpf (0-2); Specific Gravity Urine 1.014 (1.000-1.030); Urobilinogen Urine Negative (Negative); WBC Urine Automated >50 /hpf (0-5); pH Urine 5.5 (4.5-7.5)
[2024-06-29] MEDS: HEPARIN SOD 5,000 UNIT/0.5 ML VIAL SQ SCH (06:46)
[2024-06-29] MEDS ORDERED: PHARMACY GLYCEMIC MGMT CONSULT PRN (09:19)
[2024-06-29] MEDS: INSULIN ASPART PER UNIT CHARGE SC SCH (09:21)
[2024-06-29] MEDS: CLOPIDOGREL BISULFATE 75 MG TAB PO SCH (09:23)
[2024-06-29] MEDS: cefTRIAXone SODIUM 2,000 MG/50 ML BAG IV SCH (09:23)
[2024-06-29] MEDS: NIFEdipine EXTENDED REL 30 MG TABCR PO SCH (09:23)
[2024-06-29] MEDS: ATORVASTATIN 40 MG TAB PO SCH (09:24)
[2024-06-29] MEDS: SODIUM BICARBONATE 650 MG TAB PO SCH (09:24)
[2024-06-29] MEDS: EZETIMIBE 10 MG TAB PO SCH (09:24)
[2024-06-29] MEDS: ASPIRIN 81 MG ECTAB PO SCH (09:24)
--- NOTE | 2024-06-29 11:33 | Nephrology Consultation ---
Date of Consultation June 29, 2024 Assessment & Plan (1) Renal failure (ARF), acute on chronic: has baseline CKD 4 approaching CKD 5 with GFR of 16 and creat of low 3's. Current creat is slightly higher than her baseline. Will give benefit of doubt that this could be some volume depletion given Covid and very poor intake last few days. Continue iv fluid for now--at least next 24 hrs. Avoid NSAIDS, Contrast agents, GERBER/ARB, Diuretics for now. Given her preexisting CKD 4 from DM there is no guarantee she will improve with iv fluids. already told and son about this and also there is some chance of needing dialysis even this admission but hopefully not. has nephrology f/u 07/09/2024 with me. She has done ESRD options class in [place] but no decision about dialysis modality made. her family desperately wanted transplant evaluation despite the odds. seen by [facility] and deemed not a candidate Will do daily labs including today--CBC, renal panel. had few falls so also check CK UA is quite active--?? UTI also. pending urine C/s. But could be active if some ATN on top. (2) COVID-19 virus infection: Significant symptoms mostly GI but now o2 sats also dropping. would not discharge her as patients with DM and CKD 4/5 have very very high mortality. o2 sats dropping now. History of Present Illness Reason for Consultation: ABEL on background CKD 4 Attending Physician: Eulalia Chandler MD History of Present Illness 83/F with long standing h/o type 2 diabetes, proteinuria due to type 2 diabetes, CKD stage IV ( last creat /GFR low 3's and GFR about 16). I have seen her 2 times most recently in . her family desperately wanted transplant evaluation despite the odds. seen by [facility] and deemed not a candidate. She lives in [facility] [place] half and half. 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 Also has hyperlipidemia, hyperthyroidism, hyperparathyroidism, right thyroid nodule, paroxysmal atrial fibrillation, chronic diastolic CHF, hypertension, history of TIA, history of status post left hip replacement who lives with her family, son and was brought in because of confusion, weakness and found to have COVID. had covid first. As per son for last few days patient appetites been very low. She was also coughing. Feeling very weak. Patient's and's grandson has COVID. As p er son no nausea /vomiting and no diarrhea. Ambulates with a walker and her helps her ambulate. Patient denies any headache. Denies nausea. Denies chest pain. Denies shortness of breath. Denies abdominal pain. States normal bowel and bladder movements. Creat is higher than baseline at 4. getting IV fluid. BP and vital signs are fine. No o2 need yet although o2 sats seems to be dropping. HR is rising bu BP is fine for now. urine unknown as she is incontinent. ROS--unable to obtain from patient but obtained from and son. see HPI. 12 systems reviewed and negative Physical Exam Physical Exam: General-Not in acute distress. Looks weak and frail and confused. lot worse than my last encounter Head- atraumatic ENT- oropharynx clear Neck- supple, no JVD. Lungs- clear to auscultation no wheezing or crackles. Heart- regular rhythm; no murmur, no gallop. Abdomen- normal bowel sounds, soft, nontender, no distension Extremities- no pretibial edema, no erythema seen Neuro- alert, oriented PERRL, no facial palsy; no dysarthria; moves extremities. Allergies Allergy/AdvReac Type Severity Reaction Status Date / Time No Known Allergies Allergy Verified 06/28/24 17:33 Home Medications Medication Instructions Recorded Confirmed Type aspirin 81 mg tablet,delayed 81 mg PO QAM 06/28/24 06/28/24 History release atorvastatin 40 mg tablet 40 mg PO QAM 06/28/24 06/28/24 History clopidogrel 75 mg tablet 75 mg PO QAM 06/28/24 06/28/24 History ezetimibe 10 mg tablet 10 mg PO DAILY 06/28/24 06/28/24 History insulin aspart U-100 100 unit/mL 0 sliding scale dose continuous 06/28/24 06/28/24 History subcutaneous solution (Novolog subcutaneous infusion CONTINOUS U-100 Insulin aspart) metoprolol succinate 100 mg 100 mg PO QPM 06/28/24 06/28/24 History tablet,extended release 24 hr nifedipine 60 mg tablet,extended 60 mg PO QAM 06/28/24 06/28/24 History release 24 hr sodium bicarbonate 650 mg tablet 1,300 mg PO BID 06/28/24 06/28/24 History Patient History Social History Smoking Status: Unknown if ever smoked Do You Dip or Chew Tobacco: No; Hx Alcohol Use: No Hx Substance Use: No Preferred Language: Swedish 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 Beliefs That Will Affect Care: None Current Living Situation: Spouse and Family Other Information That Helps Us Care for You: No Feels Safe at Home: Yes Safety Concerns: Feels Safe At This Time Results & Data Vital Signs (Past 12 Hours) Vital Signs Temp Pulse Pulse Pulse Resp BP BP 06/29/24 07:58 36.9 C 114 H 16 142/88 H 06/29/24 06:35 36.8 C 118 H 18 136/78 06/29/24 05:41 06/29/24 02:06 113 H 06/29/24 01:57 112 H 18 108/73 06/29/24 00:58 100 H 18 123/69 06/29/24 00:58 06/28/24 23:46 108 H 16 122/71 Pulse Ox Pulse Ox O2 Del Method O2 Del Method O2 Flow Rate 06/29/24 07:58 92 Room Air 06/29/24 06:35 99 Room Air 06/29/24 05:41 Room Air 06/29/24 02:06 06/29/24 01:57 93 Room Air 06/29/24 00:58 96 Room Air 06/29/24 00:58 96 Room Air 0 06/28/24 23:46 97 Room Air
[2024-06-29] MEDS ORDERED: INSULIN ASPART 100 UNITS/ML VIAL SC PRN (12:50)
--- NOTE | 2024-06-29 14:08 | Communication Note ---
Date of Service: June 29, 2024 Evaluated patient at bedside Resting comfortable, laying flat, no o2 or resp distress Family reports recent falls and weakness. as well as history of UTI Exam frail, thin woman, no rhonchi or coarse breath sounds, irregularly irregular rhythm #COVID infection marked by fatigued and weakness no hypoxia CTM, o2 as need #Abnormal UA hx of uti previously, c/f infection given presentation Start CTX follow culture #ABEL on CKD 4 elevated from baseline, Avoid NSAIDS, Contrast agents, GERBER/ARB, Diuretics for now. Continue IVF CK ordered #DMTII home CGM and pump per family management as requested, CTM and will switch to basal bolus prn #Persistent a fib continue metoprolol #HTN continue nifedipine #Cerebral amyloid angiopathy #Prior stroke continue asa plavix rest of plan per hp
[2024-06-29] MEDS: Continuous Glucose Monitor SCH (14:31)
[2024-06-29] MEDS: INSULIN, Rapid-Acting PUMP SC SCH (14:32)
[2024-06-29 14:48] LABS: Basophils # (auto) 0.04 K/uL (0.00-0.20); Basophils % (auto) 0.6 %; Hematocrit (blood only) 23.8 % (37.0-47.0); Hemoglobin 7.3 g/dl (12.0-16.0); Immature Granulocytes # (auto) 0.15 K/uL (0.01-0.20); Immature Granulocytes % (auto) 2.3 %; Lymphocytes # (auto) 1.13 K/uL (1.20-3.40); Lymphocytes % (auto) 17.7 %; Mean Corpuscular Hemoglobin 28.2 pg (25.0-34.0); Mean Corpuscular Hgb Conc 30.7 g/dL (32.0-36.0); Mean Corpuscular Volume 91.9 fL (80.0-100.0); Mean Platelet Volume 11.8 fL (9.4-12.4); Monocytes % (auto) 12.5 %; Neutrophils # (auto) 4.28 K/uL (1.40-6.50); Neutrophils % (auto) 66.9 %; Platelet Count 129 K/uL (130-400); RDW Coefficient of Variation 13.2 % (11.5-14.5); RDW Standard Deviation 44.1 fL (36.4-46.3); Red Blood Count 2.59 M/uL (4.20-5.40)
[2024-06-29 15:05] LABS: Echinocytes 1+
[2024-06-29 15:06] LABS: Calcium 8.5 mg/dl (8.6-10.3); Creatinine Clr Calc Pharmacy 9.8 ml/min; Est GFR (Non-African American) 11.3 ml/min; Magnesium 2.1 mg/dl (1.7-2.4)
[2024-06-29 15:23] LABS: Thyroid Stimulating Hormone 0.019 uIu/ml (0.300-4.500)
[2024-06-29 15:57] LABS: T4 Free Thyroxine 1.73 ng/dl (0.61-1.60)
[2024-06-29] MEDS: METOPROLOL SUCC 50MG EXT REL TAB PO SCH (21:40)
--- NOTE | 2024-06-30 00:15 | Electrocardiogram Report ---
Test Reason : Blood Pressure : */* mmHG Vent. Rate : 117 BPM Atrial Rate : * BPM P-R Int : * ms QRS Dur : 64 ms QT Int : 392 ms P-R-T Axes : * -17 -77 degrees QTcB Int : 546 ms Poor data quality, interpretation may be adversely affected Atrial fibrillation with rapid ventricular response with premature ventricular or aberrantly conducte d complexes Abnormal ECG When compared with ECG of 06-Apr-2024 11:27, No significant change Confirmed by Awais Anthony ([id number]) on 06/30/2024 12:15:36 AM Referred By: NO PCP Confirmed By: Awais Anthony
[2024-06-30] MEDS: METOPROLOL TARTRATE 1 MG/ML VIAL IV PRN (07:35)
--- NOTE | 2024-06-30 08:16 | Hospitalist Progress Note ---
Date of Service June 30, 2024 Assessment & Plan (1) Weakness: Plan: Ms. Garcia is an 83 year old woman with h/o CKD 4, DMTI, paroxsymal afib, HTN, meningioma s/p resection 2015, hyperthyroidism, multinodular goiter, status post left hip replacement who lives with her family, son and was brought in because of confusion, weakness and found to have COVID. Patient admitted for management of ak on ckd IV. Course complicated by a fib rvr and abnormal tfts. Patient with follow up in [place] and [place], therefore most accessible records in recent history are unobtainable from OR. Patient no longer on methimazole 2/2 abnormal tfts/ high TSH after initiation. #Normocytic anemia #Thrombocytopenia All cell lines decreased on prior lab draw Anemia labs ordered Baseline roughly 9 No signs of bleed noted, Encouraged patient to allow for repeat draw #Acute metabolic encephalopathy *improving #Cerebral Amyloid Angiopathy #Meningioma s/p resection with h/o of seizures likely multifactorial, a fib/covid/?UTI/hyperthyroid at baseline this am per Delirium precatuoins no AC per family 2/2 risk of ICH, refused chemoprophylaxis for DVT ppx #Abnormal UA hard to decipher UA, suspicious for possible infection Reports history of prior UTI Continue CTX #Atrial fibrillation with RVR s/p watchman (per son) TSH low with ft4 1.75, previously on medications over a year ago No longer on DOAC frailty/cerebral amyloid angiopathy per family Previously rate controlled with Metoprolol 100mg XL qpm Transitioned to Metoprolol 50mg BID IV lopressor prn Cards consult--optimization Endo consult--driving factor for a fib #DMT1, GAD65 antibody + Patient to use home pump per family request #Hyperthyroidism, uncontrolled #Hx of multinodular goiter. followed by endocrinology in [place] - TRAB negative, thyroid antibodies negativehistorically TSH 0.0019, FT4 1.75 Consult endocrine: consider methimazole resumption at lower frequency, c/f driving RVR #ABEL on CKD stage IV on admission 4.09 Avoid nephrotoxic agents Gentle fluids Will follow labs in a.m. Continue sodium bicarbonate Nephrology consult in am for further recommendations Patient refused am labs, encouraged redraw #COVID infection COVID precautions Supportive care Close monitor #Hyperlipidemia On statin and Zetia #Elevated troponin iso demand from RVR and CKDIV Mostly demand ischemia Will follow serial enzymes, CTM #Chronic diastolic CHF Monitor for volume overload #Hypertension On metoprolol succinate and nifedipine Will monitor #History of TIA On aspirin Plavix and statin DVT prophylaxis Heparin subcu Disposition Med/telemetry Full code as per my discussion with the son. Son Ph No: [phone]. Admission and Anticipated Discharge Date Admission Date: June 29, 2024 Subjective Reports feeling well and more conversational, a bit agitated however responds appropriately Denies any acute concerns Physical Exam Constitutional: WD/WN, vitals as above Respiratory: diminshed but no wheezing/rhonchi Cardiovascular: irregularly irregular Neurologic: ambulated with to bathroom Results & Data Results & Data Vital Signs (Past 12 Hours) Vital Signs Temp Pulse Pulse Resp BP BP Pulse Ox 06/30/24 07:52 112 H 06/30/24 07:23 36.7 C 111 H 16 146/79 H 06/30/24 04:08 36.2 C L 109 H 20 160/93 H 91 06/30/24 00:04 36.6 C 112 H 20 141/80 H 93 06/29/24 21:35 98 H O2 Del Method 06/30/24 07:52 06/30/24 07:23 06/30/24 04:08 Room Air 06/30/24 00:04 Room Air 06/29/24 21:35 Laboratory Results Short CBC 06/29/24 Range/Units 14:24 WBC 6.40 (4.8-10.8) K/ul Hgb 7.3 L (12.0-16.0) g/dl Hct 23.8 L (37.0-47.0) % Plt Count 129 L (130-400) K/uL BMP 06/29/24 14:24 Sodium 139 Potassium 4.0 Chloride 105 Carbon Dioxide 16 L BUN 82 H Creatinine 3.57 H D Glucose 296 H Calcium 8.5 L Medications Administered Home Medications Medication Instructions Recorded Confirmed Last Taken aspirin 81 mg tablet,delayed 81 mg PO QAM 06/28/24 06/28/24 06/28/24 release atorvastatin 40 mg tablet 40 mg PO QAM 06/28/24 06/28/24 06/28/24 clopidogrel 75 mg tablet 75 mg PO QAM 06/28/24 06/28/24 06/28/24 ezetimibe 10 mg tablet 10 mg PO DAILY 06/28/24 06/28/24 06/28/24 insulin aspart U-100 100 unit/mL 0 sliding scale dose continuous 06/28/24 06/28/24 Unknown subcutaneous solution (Novolog subcutaneous infusion CONTINOUS U-100 Insulin aspart) metoprolol succinate 100 mg 100 mg PO QPM 06/28/24 06/28/24 06/27/24 tablet,extended release 24 hr nifedipine 60 mg tablet,extended 60 mg PO QAM 06/28/24 06/28/24 06/28/24 release 24 hr sodium bicarbonate 650 mg tablet 1,300 mg PO BID 06/28/24 06/28/24 06/28/24 08:00 Active Medications Generic Name Dose Route Start Last Admin Trade Name Freq PRN Reason Stop Dose Admin Aspirin 81 mg 06/29/24 09:00 06/30/24 07:41 Aspirin 81 Mg Ectab PO 07/29/24 08:59 81 mg QAM REMEDIOS Administration Atorvastatin Calcium 40 mg 06/29/24 09:00 06/30/24 07:40 Atorvastatin 40 Mg Tab PO 07/29/24 08:59 40 mg QAM REMEDIOS Administration Clopidogrel Bisulfate 75 mg 06/29/24 09:00 06/30/24 07:40 Clopidogrel Bisulfate 75 Mg Tab PO 07/29/24 08:59 75 mg QAM REMEDIOS Administration Ezetimibe 10 mg 06/29/24 09:00 06/30/24 07:40 Ezetimibe 10 Mg Tab PO 07/29/24 08:59 10 mg DAILY REMEDIOS Administration Sodium Chloride 1,000 mls @ 75 mls/hr 06/29/24 00:58 06/30/24 02:57 Nss IV 07/29/24 00:57 75 mls/hr .[id number] REMEDIOS Administration Ceftriaxone Sodium 2,000 mg in 50 mls @ 100 mls/hr 06/29/24 07:30 06/30/24 08:11 Rocephin IV 07/04/24 07:29 Infused Q24H REMEDIOS Infusion Insulin Aspart 1 each 06/29/24 13:00 06/30/24 08:45 Insulin, Rapid-Acting Pump SC 07/29/24 12:59 Not Given ACHS [facility] Protocol Metoprolol Tartrate 2.5 mg 06/29/24 00:58 06/30/24 07:35 Metoprolol Tartrate 1 Mg/Ml Vial IV 07/29/24 00:57 2.5 mg Q4 PRN Administration HR > 120 Miscellaneous 1 each 06/29/24 11:30 06/30/24 08:10 Continuous Glucose Monitor N/A 07/29/24 11:29 1 each ACHS REMEDIOS Administration Nifedipine 60 mg 06/29/24 09:00 06/30/24 07:40 Nifedipine Extended Rel 30 Mg Tabcr PO 07/29/24 08:59 60 mg QAM REMEDIOS Administration Sodium Bicarbonate 1,300 mg 06/29/24 09:00 06/30/24 07:40 Sodium Bicarbonate 650 Mg Tab PO 07/29/24 08:59 1,300 mg BID REMEDIOS Administration
[2024-06-30] MEDS: METOPROLOL TARTRATE 1 MG/ML VIAL IV STA (08:35)
[2024-06-30 10:31] LABS: Hematocrit (blood only) 22.4 % (37.0-47.0); Hemoglobin 7.4 g/dl (12.0-16.0); Immature Retic Fraction 16.4 % (2.3-15.9); Mean Corpuscular Hemoglobin 29.1 pg (25.0-34.0); Mean Corpuscular Volume 88.2 fL (80.0-100.0); Platelet Count 128 K/uL (130-400); RDW Coefficient of Variation 13.2 % (11.5-14.5); RDW Standard Deviation 42.9 fL (36.4-46.3); Red Blood Count 2.54 M/uL (4.20-5.40); Reticulated Hemoglobin 29.3 pg (28.2-36.6); Reticulocyte % 1.88 % (0.50-2.00); White Blood Count 9.73 K/ul (4.8-10.8)
[2024-06-30] MEDS: METOPROLOL SUCC 50MG EXT REL TAB PO SCH (10:55)
[2024-06-30 11:17] LABS: Calcium 8.4 mg/dl (8.6-10.3); Potassium 3.4 mmol/L (3.5-5.1)
[2024-06-30 11:23] LABS: BUN Creatinine Ratio 21.7 (10-20); Creatinine Clr Calc Pharmacy 11.1 ml/min; Est GFR (African American) 14.5 ml/min; Est GFR (Non-African American) 12.5 ml/min; Phosphorus 3.5 mg/dl (2.5-4.9)
[2024-06-30 11:42] LABS: Ferritin 174.2 ng/ml (8-388)
[2024-06-30 13:04] LABS: Folate (Folic Acid),Ser orPlas 4.86 ng/ml (>5.38)
[2024-06-30] MEDS: POTASSIUM CHLORIDE PWD 20 MEQ PACK PO SCH (13:30)
[2024-06-30] MEDS: methIMAzole 5 MG TABLET PO SCH (13:34)
--- NOTE | 2024-06-30 13:49 | Nephrology Progress Note ---
Date of Service June 30, 2024 Assessment & Plan (1) Renal failure (ARF), acute on chronic: Plan: has baseline CKD 4 approaching CKD 5 with GFR of 16 and creat of low 3's. Current creat is slightly higher than her baseline. Will give benefit of doubt that this could be some volume depletion given Covid and very poor intake last few days. Continue iv fluid for now--for another next 24 hrs, until her Oral intake improves Avoid NSAIDS, Contrast agents, GERBER/ARB, Diuretics for now. Given her preexisting CKD 4 from DM there is no guarantee she will improve with iv fluids. already told and son about this and also there is some chance of needing dialysis even this admission but hopefully not. has nephrology f/u 07/09/2024 She has done ESRD options class in [place] but no decision about dialysis modality made. her family desperately wanted transplant evaluation despite the odds. seen by [facility] and deemed not a candidate (2) COVID-19 virus infection: Plan: Significant symptoms mostly GI and her O2 saturations are better. Admission and Anticipated Discharge Date Admission Date: June 29, 2024 Subjective Reports feeling well Denies any acute concerns Review of Systems 2 Review of Systems: All systems reviewed & are unremarkable except as noted in HPI & below Results & Data Vital Signs (Past 12 Hours) Vital Signs Temp Pulse Pulse Resp BP BP BP 06/30/24 10:57 36.7 C 107 H 18 144/90 H 06/30/24 08:50 96 H 144/77 H 06/30/24 08:35 113 H 129/73 06/30/24 08:00 06/30/24 07:52 112 H 06/30/24 07:45 06/30/24 07:40 06/30/24 07:23 36.7 C 111 H 16 146/79 H 06/30/24 04:08 36.2 C L 109 H 20 160/93 H Pulse Ox O2 Del Method O2 Flow Rate 06/30/24 10:57 92 Nasal Cannula 2 06/30/24 08:50 06/30/24 08:35 06/30/24 08:00 92 Nasal Cannula 2 06/30/24 07:52 06/30/24 07:45 87 L Room Air 06/30/24 07:40 Nasal Cannula 2 06/30/24 07:23 08/31/24 04:08 91 Room Air Laboratory Results 06/30/24 10:03 06/30/24 10:03
--- NOTE | 2024-06-30 16:45 | Cardiology Consultation ---
Date of Consultation June 30, 2024 Assessment & Plan (1) Atrial fibrillation with controlled ventricular response: * Patient with history of paroxysmal atrial fibrillation * She was in atrial fibrillation on presentation the emergency room and remains in atrial fibrillation, perhaps fueled by SARS-CoV-2 illness, UTI, thyroid dysfunction all of which are being addressed. She is asymptomatic from a cardiac perspective. * She is typically on metoprolol succinate 100 mg daily at bedtime at home, and is currently on metoprolol succinate 50 mg twice daily. * For now, change metoprolol to tartrate formulation, 37.5 mg 4 times daily. * Patient has a history of cerebral angiopathy and is therefore not on a nticoagulation. She has had a left atrial appendage occlusion device placed percutaneously in March of this year. * Continue aspirin and clopidogrel. History of Present Illness Attending Physician: Eulalia Chandler MD History of Present Illness Flora Garcia is an 83 year old female seen in cardiology consultation per the request of Dr. Chandler for the evaluation of atrial fibrillation with rapid ventricular response. Patient was admitted via the emergency room having presented on 06/28/2024 with generalized weakness and confusion. She tested positive for SARS-CoV-2. Urinalysis also abnormal with preliminary results of urine culture revealing group B beta strep. Patient currently sitting supine, resting comfortably. Her son and her are at the bedside. She is in no acute distress and she does not have any subjective sensation that her heart rate is elevated. Currently, telemetry reveals atrial fibrillation with rate in the 120s at rest. History is notable for paroxysmal atrial fibrillation, type 2 diabetes mellitus, stage IV chronic kidney disease, meningioma with history of surgical resection and seizures, hypothyroidism previously on methimazole. Patient had previously been anticoagulated with Eliquis, but due to concerns of amyloid angiopathy she underwent percutaneous left atrial appendage occlusion device within Amplatzer Amulet on 04/25/2024 at [facility] Allergies Allergy/AdvReac Type Severity Reaction Status Date / Time No Known Allergies Allergy Verified 06/28/24 17:33 Home Medications Medication Instructions Recorded Confirmed Type aspirin 81 mg tablet,delayed 81 mg PO QAM 06/28/24 06/28/24 History release atorvastatin 40 mg tablet 40 mg PO QAM 06/28/24 06/28/24 History clopidogrel 75 mg tablet 75 mg PO QAM 06/28/24 06/28/24 History ezetimibe 10 mg tablet 10 mg PO DAILY 06/28/24 06/28/24 History insulin aspart U-100 100 unit/mL 0 sliding scale dose continuous 06/28/24 06/28/24 History subcutaneous solution (Novolog subcutaneous infusion CONTINOUS U-100 Insulin aspart) metoprolol succinate 100 mg 100 mg PO QPM 06/28/24 06/28/24 History tablet,extended release 24 hr nifedipine 60 mg tablet,extended 60 mg PO QAM 06/28/24 06/28/24 History release 24 hr sodium bicarbonate 650 mg tablet 1,300 mg PO BID 06/28/24 06/28/24 History Patient History Social History Smoking Status: Unknown if ever smoked Do You Dip or Chew Tobacco: No; Hx Alcohol Use: No Hx Substance Use: No Preferred Language: Bel[place]ian [employer] W[employer] Required: No Beliefs That Will Affect Care: None Current Living Situation: Spouse and Family Other Information That Helps Us Care for You: No Feels Safe at Home: Yes Safety Concerns: Feels Safe At This Time Assistive Devices: Walker Review of Systems Review of Systems: All systems reviewed & are unremarkable except as noted in HPI & below Physical Exam Physical Exam: General: no acute distress and stated age Eyes: conjunctiva are pink and non-injected, sclera clear Neck: normal jugular venous pulse, no hepatojugular reflux Chest: normal shape and normal respiratory effort Lungs: clear to auscultation and percussion Cardiac Exam: -Irregular rhythm, tachycardic, no murmur Abdomen: abdomen soft, non-tender, no abnormal masses and no hepatosplenomegaly Musculoskeletal: no gait disturbance, no weakness Extremities: no edema and no cyanosis Neuro:awake, conversant, follows commands, no focal motor deficits Psych: appropriate affect and insight. Results & Data Vital Signs (Past 12 Hours) Vital Signs Temp Pulse Pulse Resp BP BP Pulse Ox 06/30/24 15:04 36.8 C 85 16 116/65 89 L 06/30/24 14:00 89 06/30/24 10:57 36.7 C 107 H 18 144/90 H 92 06/30/24 08:50 96 H 144/77 H 06/30/24 08:35 113 H 129/73 06/30/24 08:00 92 06/30/24 07:52 112 H 06/30/24 07:45 87 L 06/30/24 07:40 06/30/24 07:23 36.7 C 111 H 16 146/79 H O2 Del Method O2 Flow Rate 06/30/24 15:04 Nasal Cannula 2 06/30/24 14:00 06/30/24 10:57 Nasal Cannula 2 06/30/24 08:50 06/30/24 08:35 06/30/24 08:00 Nasal Cannula 2 06/30/24 07:52 06/30/24 07:45 Room Air 06/30/24 07:40 Nasal Cannula 2 06/30/24 07:23 Diagnostic Findings Presenting EKG on 06/28/2024 was reviewed independently: Tracing some with technical limited due to artifact. Atrial fibrillation with rapid ventricular response at 117 bpm present. Report of most recent transthoracic echocardiogram reviewed in [facility] dating back to October, at [facility]: LVEF normal, 60% The right ventricular chamber size and systolic function normal. Mitral annular calcification noted without significant valvular disease otherwise. No pericardial effusion noted.
[2024-06-30] MEDS: METOPROLOL TARTRATE 25 MG TAB PO SCH (21:40)
[2024-07-01 07:29] LABS: Hematocrit (blood only) 22.7 % (37.0-47.0); Hemoglobin 7.1 g/dl (12.0-16.0); Mean Corpuscular Hemoglobin 28.3 pg (25.0-34.0); Mean Corpuscular Hgb Conc 31.3 g/dL (32.0-36.0); Mean Corpuscular Volume 90.4 fL (80.0-100.0); Mean Platelet Volume 12.2 fL (9.4-12.4); Platelet Count 126 K/uL (130-400); RDW Coefficient of Variation 13.3 % (11.5-14.5); RDW Standard Deviation 44.1 fL (36.4-46.3); Red Blood Count 2.51 M/uL (4.20-5.40); White Blood Count 9.54 K/ul (4.8-10.8)
[2024-07-01 07:53] LABS: BUN Creatinine Ratio 22.3 (10-20); Calcium 8.7 mg/dl (8.6-10.3); Creatinine Clr Calc Pharmacy 11.4 ml/min; Est GFR (Non-African American) 12.9 ml/min; Potassium 3.6 mmol/L (3.5-5.1)
--- NOTE | 2024-07-01 09:00 | XRay Report ---
XR chest 1V portable CLINICAL HISTORY: Hypoxia. COMPARISON STUDY: Chest radiograph June 28, 2024. FINDINGS: There is no pneumothorax. A small right pleural effusion has developed. Right lower lung ai rspace opacity has also developed. Left lung is clear. There is mild interstitial thickening. Skin fo lds project over the left chest. There is mild cardiomegaly. An occluder device projects over the lef t heart. IMPRESSION: 1. Interval development of a small right pleural effusion with right basilar opacity which favors pn eumonia or aspiration pneumonitis. 2. Cardiomegaly with mild interstitial pulmonary edema. ACT 112: Negative or not required by law. Electronically signed by: Jossue Ernandez M.D. 07/01/2024 8:57 AM
--- NOTE | 2024-07-01 09:39 | Hospitalist Progress Note ---
Date of Service July 01, 2024 Assessment & Plan (1) Weakness: Plan: Ms. Garcia is an 83 year old woman with h/o CKD 4, DMTI, paroxsymal afib, HTN, meningioma s/p resection 2014, hyperthyroidism, multinodular goiter, status post left hip replacement who lives with her family, son and was brought in because of confusion, weakness and found to have COVID. Patient admitted for management of ak on ckd IV. Course complicated by a fib rvr and abnormal tfts. Patient with follow up in [place] and [place], therefore most accessible records in recent history are unobtainable from ID. Patient no longer on methimazole 2/2 abnormal tfts/ high TSH after initiation. #Acute hypoxic resp failure #Pulmonary edema Patient required fluid resuscitation 2/2 ABEL on CKD IV, however, now with vascular congestion and pleural effusion Discussing with Nephrology diuresis recommendations -Start torsemide 100mg daily -Start KCL 40meq daily O2 wean as needed for o2 >92% Will need 2 step upon d/c #Normocytic anemia #Thrombocytopenia All cell lines decreased on prior lab draw Anemia labs ordered Baseline roughly 9 No signs of bleed noted, Encouraged patient to allow for repeat draw Folate low, replace PO Iron low, replace PO #Acute metabolic encephalopathy *improving #Cerebral Amyloid Angiopathy #Meningioma s/p resection with h/o of seizures likely multifactorial, a fib/covid/?UTI/hyperthyroid at baseline this am per Delirium precautions no AC per family 2/2 risk of ICH, refused chemoprophylaxis for DVT ppx Reports poor appetite--start mirtazapine 7.5mg qhs #Acute uncomplicated cysitis hard to decipher UA, suspicious for possible infection Reports history of prior UTI Continue CTX while admitted, GBS on UA--transition to amoxicillin for dispo #Atrial fibrillation with RVR s/p watchman (per son) TSH low with ft4 1.75, previously on medications over a year ago No longer on DOAC frailty/cerebral amyloid angiopathy per family Previously rate controlled with Metoprolol 100mg XL qpm Transitioned to Metoprolol 50mg BID then to Metorpolol tartrate 37.5 qid IV lopressor prn Cards consult--optimization -Transition from tartrate to Metoprolol 75mg XL BID in am Endo consult--driving factor for a fib -methimazole as below #DMT1, GAD65 antibody + Patient to use home pump per family request #Hyperthyroidism, uncontrolled #Hx of multinodular goiter. followed by endocrinology in [place] - TRAB negative, thyroid antibodies negativehistorically TSH 0.0019, FT4 1.75 Consult endocrine: consider methimazole resumption at lower frequency, c/f driving RVR -Start Methimazole 5mg BID, follow up labs in 3-4 weeks with Endo #ABEL on CKD stage IV on admission 4. Avoid nephrotoxic agents Gentle fluids Will follow labs in a.m. Continue sodium bicarbonate Nephrology consult in am for further recommendations Slow improvement, start torsemide 100mg daily #COVID infection COVID precautions Supportive care Close monitor #Hyperlipidemia On statin and Zetia #Elevated troponin iso demand from RVR and CKDIV Mostly demand ischemia Will follow serial enzymes, CTM #Acute on Chronic diastolic CHF Monitor for volume overload, start PO diuretic per nephrology Plan for 2 step #Hypertension On metoprolol succinate and nifedipine Will monitor #History of TIA On aspirin Plavix and statin DVT prophylaxis scds Disposition Med/telemetry Full code as per my discussion with the son. Son Ph No: [phone]. Admission and Anticipated Discharge Date Admission Date: June 29, 2024 Subjective NAEO Slow improvement reported by family Physical Exam Constitutional: WD/WN, vitals as above Respiratory: no distress, diminished bibasilar breathsounds Cardiovascular: irregularly irregular Results & Data Results & Data Vital Signs (Past 12 Hours) Vital Signs Temp Pulse Pulse Resp BP Pulse Ox O2 Del Method 07/01/24 08:10 36.8 C 100 H 16 122/60 98 Nasal Cannula 07/01/24 07:00 103 H 07/01/24 02:30 36.6 C 105 H 18 135/71 91 Nasal Cannula 06/30/24 22:20 36.4 C L 98 H 18 117/68 91 Nasal Cannula 06/30/24 21:49 99 H O2 Flow Rate 07/01/24 08:10 4 07/01/24 07:00 07/01/24 02:30 3.5 06/30/24 22:20 3.5 06/30/24 21:49 Laboratory Results Short CBC 07/01/24 Range/Units 07:02 WBC 9.54 (4.8-10.8) K/ul Hgb 7.1 L (12.0-16.0) g/dl Hct 22.7 L (37.0-47.0) % Plt Count 126 L (130-400) K/uL BMP 07/01/24 07:02 Sodium 144 Potassium 3.6 Chloride 111 H Carbon Dioxide 21 BUN 71 H Creatinine 3.18 H Glucose 150 H Calcium 8.7 Medications Administered Home Medications Medication Instructions Recorded Confirmed Last Taken aspirin 81 mg tablet,delayed 81 mg PO QAM 06/28/24 06/28/24 06/28/24 release atorvastatin 40 mg tablet 40 mg PO QAM 06/28/24 06/28/24 06/28/24 clopidogrel 75 mg tablet 75 mg PO QAM 06/28/24 06/28/24 06/28/24 ezetimibe 10 mg tablet 10 mg PO DAILY 06/28/24 06/28/24 06/28/24 insulin aspart U-100 100 unit/mL 0 sliding scale dose continuous 06/28/24 06/28/24 Unknown subcutaneous solution (Novolog subcutaneous infusion CONTINOUS U-100 Insulin aspart) metoprolol succinate 100 mg 100 mg PO QPM 06/28/24 06/28/24 06/27/24 tablet,extended release 24 hr nifedipine 60 mg tablet,extended 60 mg PO QAM 06/28/24 06/28/24 06/28/24 release 24 hr sodium bicarbonate 650 mg tablet 1,300 mg PO BID 06/28/24 06/28/24 06/28/24 08:00 Active Medications Generic Name Dose Route Start Last Admin Trade Name Octavio PRN Reason Stop Dose Admin Aspirin 81 mg 06/29/24 09:00 07/01/24 09:48 Aspirin 81 Mg Ectab PO 07/29/24 08:59 81 mg QAM REMEDIOS Administration Atorvastatin Calcium 40 mg 06/29/24 09:00 07/01/24 09:48 Atorvastatin 40 Mg Tab PO 07/29/24 08:59 40 mg QAM REMEDIOS Administration Clopidogrel Bisulfate 75 mg 06/29/24 09:00 07/01/24 09:47 Clopidogrel Bisulfate 75 Mg Tab PO 07/29/24 08:59 75 mg QAM REMEDIOS Administration Ezetimibe 10 mg 06/29/24 09:00 07/01/24 09:47 Ezetimibe 10 Mg Tab PO 07/29/24 08:59 10 mg DAILY REMEDIOS Administration Ferrous Sulfate 325 mg 07/01/24 09:00 07/01/24 09:52 Ferrous Sulfate 325 Mg Tab PO 07/31/24 08:59 325 mg QAM REMEDIOS Administration Folic Acid 1 mg 07/01/24 09:00 07/01/24 09:52 Folic Acid 1 Mg Tab PO 07/31/24 08:59 1 mg QAM REMEDIOS Administration Guaifenesin 600 mg 07/01/24 09:00 07/01/24 09:52 Guaifenesin 600 Mg Tabcr PO 07/31/24 08:59 600 mg Q12 REMEDIOS Administration Ceftriaxone Sodium 2,000 mg in 50 mls @ 100 mls/hr 06/29/24 07:30 07/01/24 11:20 Rocephin IV 07/04/24 07:29 Infused Q24H REMEDIOS Infusion Insulin Aspart 1 each 06/29/24 13:00 07/01/24 10:02 Insulin, Rapid-Acting Pump SC 07/29/24 12:59 Not Given [facility] Protocol Metoprolol Tartrate 2.5 mg 06/29/24 00:58 06/30/24 07:35 Metoprolol Tartrate 1 Mg/Ml Vial IV 07/29/24 00:57 2.5 mg Q4 PRN Administration HR > 120 Metoprolol Tartrate 37.5 mg 06/30/24 21:00 07/01/24 09:48 Metoprolol Tartrate 25 Mg Tab PO 07/02/24 07:59 37.5 mg QID REMEDIOS Administration Miscellaneous 1 each 06/29/24 11:30 07/01/24 10:02 Continuous Glucose Monitor N/A 07/29/24 11:29 1 each ACHS REMEDIOS Administration Nifedipine 60 mg 06/29/24 09:00 07/01/24 09:49 Nifedipine Extended Rel 30 Mg Tabcr PO 07/29/24 08:59 60 mg QAM REMEDIOS Administration Sodium Bicarbonate 1,300 mg 06/29/24 09:00 07/01/24 09:48 Sodium Bicarbonate 650 Mg Tab PO 07/29/24 08:59 1,300 mg BID REMEDIOS Administration Torsemide 100 mg 07/01/24 10:15 07/01/24 11:32 Torsemide 100 Mg Tab PO 07/31/24 10:14 100 mg QAM REMEDIOS Administration
[2024-07-01] MEDS: FERROUS SULFATE 325 MG TAB PO SCH (09:52)
[2024-07-01] MEDS: guaiFENesin 600 MG TABCR PO SCH (09:52)
[2024-07-01] MEDS: FOLIC ACID 1 MG TAB PO SCH (09:52)
--- NOTE | 2024-07-01 10:45 | Communication Note ---
Date of Service: July 01, 2024 Telemetry reviewed rate controlled atrial fibrillation in the 90s to low 100s noted. Continue metoprolol succinate with dose titrated from 25 mg twice daily to 37.5 mg twice daily on 06/30/2024. Continue dual antiplatelet therapy with history of Amplatzer amulet percutaneous left atrial appendage occlusion device having been performed at [facility] in March,. -Call with questions or concerns.
[2024-07-01] MEDS: TORSEMIDE 100 MG TAB PO SCH (11:32)
--- NOTE | 2024-07-01 12:24 | Nephrology Progress Note ---
Date of Service July 01, 2024 Assessment & Plan (1) Renal failure (ARF), acute on chronic: Plan: Has baseline CKD 4 approaching CKD 5 with GFR of 16 and creat of low 3's. Current creat is slightly higher than her baseline. Will give benefit of doubt that this could be some volume depletion given Covid and very poor intake last few days. - this is partially improved as her oral intake improves, oxygen requirements have all also been the same. Recent chest x-ray shows small pleural effusion but she continues to make urine( no change from baseline), and does not have pedal edema. - start her on torsemide 100 mg daily Avoid NSAIDS, Contrast agents, GERBER/ARB, Diuretics for now. Given her preexisting CKD 4 from DM there is no guarantee she will improve with iv fluids. already told and son about this and also there is some chance of needing dialysis even this admission but hopefully not. has nephrology f/u 07/09/2024 She has done ESRD options class in [place] but no decision about dialysis modality made. her family desperately wanted transplant evaluation despite the odds. seen by [facility] and deemed not a candidate (2) COVID-19 virus infection: Plan: Significant symptoms mostly GI and her O2 saturations are better. Admission and Anticipated Discharge Date Admission Date: June 29, 2024 Subjective comfortably resting in bed on 4 L oxygen no pedal edema Review of Systems 2 Review of Systems: All systems reviewed & are unremarkable except as noted in HPI & below Physical Exam 2 Physical Exam: General- Not in distress, on 4 L oxygen Neck- supple, no JVD. Lungs- clear to auscultation no wheezing or crackles. Heart- irregular rate ; no murmur, no gallop. Abdomen- normal bowel sounds, soft, nontender, no distension Extremities- no pretibial edema, no erythema seen. Neuro- alert, oriented Results & Data Vital Signs (Past 12 Hours) Vital Signs Temp Pulse Pulse Resp BP Pulse Ox O2 Del Method 07/01/24 11:47 Nasal Cannula 07/01/24 11:06 37 C 99 H 16 131/81 94 Nasal Cannula 07/01/24 08:10 36.8 C 100 H 16 122/60 98 Nasal Cannula 07/01/24 07:00 103 H 07/01/24 02:30 36.6 C 105 H 18 135/71 91 Nasal Cannula O2 Flow Rate 07/01/24 11:47 2 07/01/24 11:06 3.5 07/01/24 08:10 4 07/01/24 07:00 07/01/24 02:30 3.5 Laboratory Results 07/01/24 07:02 07/01/24 07:02
[2024-07-01] MEDS: methIMAzole 5 MG TABLET PO SCH (13:23)
[2024-07-01] MEDS: MIRTAZAPINE TAB 15 MG TAB PO SCH (20:49)
[2024-07-01] MEDS ORDERED: methIMAzole 5 MG TABLET PO SCH (21:00)
[2024-07-02] MEDS ORDERED: METOPROLOL SUCC 25MG EXT REL TAB PO SCH (09:00)
[2024-07-02] MEDS: POTASSIUM CHLORIDE CRTAB 20 MEQ TABCR PO SCH ×2 (09:11→20:08)
[2024-07-02 10:09] LABS: BUN Creatinine Ratio 20.2 (10-20); Calcium 8.5 mg/dl (8.6-10.3); Creatinine Clr Calc Pharmacy 10.2 ml/min; Est GFR (Non-African American) 11.3 ml/min; Magnesium 1.9 mg/dl (1.7-2.4); Potassium 3.5 mmol/L (3.5-5.1)
[2024-07-02] MEDS ORDERED: METOPROLOL TARTRATE 1 MG/ML VIAL IV PRN (10:21)
[2024-07-02] MEDS: METOPROLOL SUCC 50MG EXT REL TAB PO SCH (10:28)
--- NOTE | 2024-07-02 10:48 | Hospitalist Progress Note ---
Date of Service July 02, 2024 Assessment & Plan (1) Weakness: Plan: Ms. Garcia is an 83 year old woman with h/o CKD 4, DMTI, paroxsymal afib, HTN, meningioma s/p resection 2014, hyperthyroidism, multinodular goiter, status post left hip replacement who lives with her family, son and was brought in because of confusion, weakness and found to have COVID. Patient admitted for management of ak on ckd IV. Course complicated by a fib rvr and abnormal tfts. Patient with follow up in [place] and [place], therefore most accessible records in recent history are unobtainable from [place]. Patient no longer on methimazole 2/2 abnormal tfts/ high T SH after initiation. Given concerns of ongoing a fib, methimazole was initiated after TT conversation with Dr. Elvi Whyte. Additionally, metoprolol increased to 100mg XL BID and patient still requiring IV lopressor. Patient with hypoxic resp failure 2/2 acute heart failure with preserved EF and CKD. Patient started on torsemide 100mg daily to help with fluid removal and given no resp distress will likely dispo on home o2 with close nephrology follow up. Long discussion with sons and revealed family wants all efforts pursued, even discussions of PD. Course prolonged given need for heart rate management. #Acute hypoxic resp failure #Pulmonary edema Patient required fluid resuscitation 2/2 ABEL on CKD IV, however, now with vascular congestion and pleural effusion Discussing with Nephrology diuresis recommendations -continue torsemide 100mg daily -continue KCL 40meq, increased to BID O2 wean as needed for o2 >92% Will need 2 step upon d/c #Normocytic anemia #Thrombocytopenia All cell lines decreased on prior lab draw Anemia labs ordered Baseline roughly 9 No signs of bleed noted, Encouraged patient to allow for repeat draw Folate low, replace PO Iron low, replace PO #Acute metabolic encephalopathy *improving #Cerebral Amyloid Angiopathy #Meningioma s/p resection with h/o of seizures likely multifactorial, a fib/covid/?UTI/hyperthyroid at baseline this am per Delirium precautions no AC per family 2/2 risk of ICH, refused chemoprophylaxis for DVT ppx Reports poor appetite--continue mirtazapine 7.5mg qhs #Acute uncomplicated cysitis hard to decipher UA, suspicious for possible infection Reports history of prior UTI Continue CTX while admitted, GBS on UA--transition to amoxicillin for dispo #Atrial fibrillation with RVR s/p watchman (per son) TSH low with ft4 1.75, previously on medications over a year ago No longer on DOAC frailty/cerebral amyloid angiopathy per family Previously rate controlled with Metoprolol 100mg XL qpm Transitioned to Metoprolol 50mg BID then to Metorpolol tartrate 37.5 qid IV lopressor prn Cards consult--optimization -Transitioned to Metoprolol 100mg XL BID Endo consult--driving factor for a fib -methimazole as below #DMT1, GAD65 antibody + Patient to use home pump per family request #Hyperthyroidism, uncontrolled #Hx of multinodular goiter. followed by endocrinology in [place] - TRAB negative, thyroid antibodies negativehistorically TSH 0.0019, FT4 1.75 Consult endocrine: consider methimazole resumption at lower frequency, c/f driving RVR -Continue Methimazole 5mg BID, follow up labs in 3-4 weeks with Endo #ABEL on CKD stage IV on admission 02.06 Avoid nephrotoxic agents Gentle fluids Will follow labs in a.m. Continue sodium bicarbonate Nephrology consulted, appreciate recs Slow improvement, continue torsemide 100mg daily #COVID infection COVID precautions Supportive care Close monitor #Hyperlipidemia On statin and Zetia #Elevated troponin iso demand from RVR and CKDIV Mostly demand ischemia Will follow serial enzymes, CTM #Acute on Chronic diastolic CHF Monitor for volume overload, start PO diuretic per nephrology Plan for 2 step #Hypertension On metoprolol succinate and nifedipine Will monitor #History of TIA On aspirin Plavix and statin DVT prophylaxis scds Disposition Med/telemetry Full code as per my discussion with the son. Son Ph No: [phone]. Admission and Anticipated Discharge Date Admission Date: June 29, 2024 Subjective NAEO States she wants to leave as soon as able Denies any chest pain or SOB/resp distress Reports increased appetite this morning Physical Exam Constitutional: WD/WN, vitals as above frail weak appearing woman Respiratory: diminished, 2/2 effort Cardiovascular: irregularly irregular Results & Data Results & Data Vital Signs (Past 12 Hours) Vital Signs Temp Pulse Pulse Resp BP BP Pulse Ox 07/02/24 10:05 143 H 07/02/24 07:54 36.9 C 120 H 20 133/81 95 07/02/24 04:52 36.8 C 100 H 18 118/71 94 07/02/24 00:41 07/02/24 00:36 98 H 07/01/24 23:00 36.6 C 103 H 18 116/72 96 O2 Del Method O2 Flow Rate 07/02/24 10:05 07/02/24 07:54 Nasal Cannula 5 07/02/24 04:52 Nasal Cannula 5 07/02/24 00:41 Nasal Cannula 5 07/02/24 00:36 07/01/24 23:00 Room Air Laboratory Results [facility] 07/02/24 09:32 Sodium 144 Potassium 3.5 Chloride 108 H Carbon Dioxide 23 BUN 72 H Creatinine 3.57 H D Glucose 167 H Calcium 8.5 L Medications Administered Home Medications Medication Instructions Recorded Confirmed Last Taken aspirin 81 mg tablet,delayed 81 mg PO [facility] 06/28/24 06/28/24 06/28/24 release atorvastatin 40 mg tablet 40 mg PO QA 06/28/24 06/28/24 06/28/24 clopidogrel 75 mg tablet 75 mg PO [facility] 06/28/24 06/28/24 06/28/24 ezetimibe 10 mg tablet 10 mg PO DAILY 06/28/24 06/28/24 06/28/24 insulin aspart U-100 100 unit/mL 0 sliding scale dose continuous 06/28/24 06/28/24 Unknown subcutaneous solution (Novolog subcutaneous infusion CONTINOUS U-100 Insulin aspart) metoprolol succinate 100 mg 100 mg PO QPM 06/28/24 06/28/24 06/27/24 tablet,extended release 24 hr nifedipine 60 mg tablet,extended 60 mg PO QA 06/28/24 06/28/24 06/28/24 release 24 hr sodium bicarbonate 650 mg tablet 1,300 mg PO BID 06/28/24 06/28/24 06/28/24 08:0 0 Active Medications Generic Name Dose Route Start Last Admin Trade Name Gageq PRN Reason Stop Dose Admin Aspirin 81 mg 06/29/24 09:00 07/02/24 09:07 Aspirin 81 Mg Ectab PO 07/29/24 08:59 81 mg QAM REMEDIOS Administration Atorvastatin Calcium 40 mg 06/29/24 09:00 07/02/24 09:08 Atorvastatin 40 Mg Tab PO 07/29/24 08:59 40 mg QAM REMEDIOS Administration Clopidogrel Bisulfate 75 mg 06/29/24 09:00 07/02/24 09:08 Clopidogrel Bisulfate 75 Mg Tab PO 07/29/24 08:59 75 mg QAM REMEDIOS Administration Ezetimibe 10 mg 06/29/24 09:00 07/02/24 09:08 Ezetimibe 10 Mg Tab PO 07/29/24 08:59 10 mg DAILY REMEDIOS Administration Ferrous Sulfate 325 mg 07/01/24 09:00 07/02/24 09:09 Ferrous Sulfate 325 Mg Tab PO 07/31/24 08:59 325 mg QAM REMEDIOS Administration Folic Acid 1 mg 07/01/24 09:00 07/02/24 09:09 Folic Acid 1 Mg Tab PO 07/31/24 08:59 1 mg QAM REMEDIOS Administration Guaifenesin 600 mg 07/01/24 09:00 07/02/24 09:09 Guaifenesin 600 Mg Tabcr PO 07/31/24 08:59 600 mg Q12 REMEDIOS Administration Ceftriaxone Sodium 2,000 mg in 50 mls @ 100 mls/hr 06/29/24 07:30 07/02/24 11:00 Rocephin IV 07/04/24 07:29 100 mls/hr Q24H REMEDIOS Administration Insulin Aspart 1 each 06/29/24 13:00 07/02/24 10:27 Insulin, Rapid-Acting Pump SC 07/29/24 12:59 [facility] Methimazole 5 mg 07/01/24 12:10 07/02/24 09:12 Methimazole 5 Mg Tablet PO 07/31/24 12:09 5 mg BID REMEDIOS Administration Metoprolol Succinate 100 mg 07/02/24 09:00 07/02/24 10:28 Metoprolol Succ 50mg Ext Rel Tab PO 08/01/24 08:59 100 mg BID REMEDIOS Administration Mirtazapine 7.5 mg 07/01/24 21:00 07/01/24 20:49 Mirtazapine Tab 15 Mg Tab PO 07/31/24 20:59 7.5 mg HS REMEDIOS Administration Miscellaneous 1 each 06/29/24 11:30 07/02/24 10:28 Continuous Glucose Monitor N/A 07/29/24 11:29 1 each ACHS REMEDIOS Administration Nifedipine 60 mg 06/29/24 09:00 07/02/24 09:11 Nifedipine Extended Rel 30 Mg Tabcr PO 07/29/24 08:59 60 mg QAM REMEDIOS Administration Potassium Chloride 40 meq 07/02/24 09:00 07/02/24 09:11 Potassium Chloride Crtab 20 Meq Tabcr PO 08/01/24 08:59 40 meq QAM REMEDIOS Administration Sodium Bicarbonate 1,300 mg 06/29/24 09:00 07/02/24 09:12 Sodium Bicarbonate 650 Mg Tab PO 07/29/24 08:59 1,300 mg BID REMEDIOS Administration Torsemide 100 mg 07/01/24 10:15 07/02/24 09:11 Torsemide 100 Mg Tab PO 07/31/24 10:14 100 mg QAM REMEDIOS Administration
--- NOTE | 2024-07-02 14:15 | Nephrology Progress Note ---
Date of Service July 02, 2024 Assessment & Plan (1) Renal failure (ARF), acute on chronic: Plan: Has baseline CKD 4 approaching CKD 5 with GFR of 16 and creat of low 3's. Current creat is slightly higher than her baseline. Will give benefit of doubt that this could be some volume depletion given Covid and very poor intake last few days. - this is partially improved as her oral intake improves, oxygen requirements have all also been the same. Recent chest x-ray shows small pleural effusion but she continues to make urine( no change from baseline), and does not have pedal edema, however her weight has climbed up( not sure of accuracy) - increase torsemide to 100 mg twice daily Avoid NSAIDS, Contrast agents, GERBER/ARB, Diuretics for now. Given her preexisting CKD 4 from DM there is no guarantee she will improve with iv fluids. already told and son about this and also there is some chance of needing dialysis even this admission but hopefully not. has nephrology f/u 07/09/2024 She has done ESRD options class in [place] but no decision about dialysis modality made. her family desperately wanted transplant evaluation despite the odds. seen by [facility] and deemed not a candidate (2) COVID-19 virus infection: Plan: Significant symptoms mostly GI and her O2 saturations are better. Admission and Anticipated Discharge Date Admission Date: June 29, 2024 Subjective Comfortable States she wants to leave as soon as able Denies any chest pain or SOB/resp distress Review of Systems 2 Review of Systems: All systems reviewed & are unremarkable except as noted in HPI & below Physical Exam 2 Physical Exam: General- Not in distress, on 5 L oxygen Neck- supple, no JVD. Lungs- clear to auscultation no wheezing or crackles. Heart- irregular rate ; no murmur, no gallop. Abdomen- normal bowel sounds, soft, nontender, no distension Extremities- no pretibial edema, no erythema seen. Neuro- alert, oriented Results & Data Vital Signs (Past 12 Hours) Vital Signs Temp Pulse Pulse Resp BP BP Pulse Ox 07/02/24 10:05 143 H 07/02/24 07:54 36.9 C 120 H 20 133/81 95 07/02/24 04:52 36.8 C 100 H 18 118/71 94 O2 Del Method O2 Flow Rate 07/02/24 10:05 07/02/24 07:54 Nasal Cannula 5 07/02/24 04:52 Nasal Cannula 5 Laboratory Results 07/01/24 07:02 07/02/24 09:32
[2024-07-02] MEDS: TORSEMIDE 100 MG TAB PO SCH (17:07)
[2024-07-03 10:03] VITALS: TEMP 97.5
--- NOTE | 2024-07-03 10:47 | Nephrology Progress Note ---
Date of Service July 03, 2024 Assessment & Plan Admission and Anticipated Discharge Date Admission Date: June 29, 2024 Subjective Assessment & Plan (1) Renal failure (ARF), acute on chronic: Plan: Has baseline CKD 4 approaching CKD 5 with GFR of 16 and creat of low 3's. Admission creat is slightly higher than her baseline. Will give benefit of doubt that this could be some volume depletion given Covid and very poor intake last few days. this is partially improved as her oral intake improves, oxygen requirements have all also been the same. Recent chest x-ray shows small pleural effusion but she continues to make urine( no change from baseline), and does not have pedal edema. She is stable enough for discharge but high risk of coming back Creat is up a bit from yesterday. On RA currently. . has not been on high dose diuretics before. lower the torsemide to 60 once daily and even this dose may be too much given her still poor appetite. will further adjust next week during the appt 07/09 Avoid NSAIDS, Contrast agents, GERBER/ARB Will be proceeding with ESRD options much more aggressively during the upcoming visit on 07/09. Currently patient and family leaning towards Home PD Anemia of CKD has worsened a lot. will give her venofer 300 mg today before discharge Also give procrit 48126 units today before discharge. Will need to schedule her with Anemia Clinic--my Clinic nurse will do that Given her preexisting CKD 4 from DM there is no guarantee she will improve. already told and son about this and also there is some chance of needing dialysis even this admission but hopefully not. has nephrology f/u 07/09/2024 She has done ESRD options class in [place] but no decision about dialysis modality made. her family desperately wanted transplant evaluation despite the odds. seen by [facility] and deemed not a candidate. (2) COVID-19 virus infection: Plan: Significant symptoms mostly GI and her O2 saturations are better. Subjective comfortably resting in bed on RA now no pedal edema Review of Systems Review of Systems: All systems reviewed & are unremarkable except as noted in HPI & below Physical Exam Physical Exam: General- Not in distress, on RA now Neck- supple, no JVD. Lungs- clear to auscultation no wheezing or crackles. Heart- irregular rate ; no murmur, no gallop. Abdomen- normal bowel sounds, soft, nontender, no distension Extremities- no pretibial edema, no erythema seen. Neuro- alert, oriented Results & Data Vital Signs (Past 12 Hours) Vital Signs Temp Pulse Pulse Resp BP Pulse Ox O2 Del Method 07/03/24 10:02 36.4 C L 108 H 18 135/75 93 Room Air 07/03/24 08:35 Nasal Cannula 07/03/24 07:00 102 H 07/03/24 02:37 36.5 C 111 H 18 106/61 93 Nasal Cannula 07/03/24 01:18 86 18 07/02/24 23:12 36.2 C L 110 H 18 110/71 90 Nasal Cannula 07/02/24 23:08 Nasal Cannula O2 Flow Rate 07/03/24 10:02 07/03/24 08:35 4 07/03/24 07:00 07/03/24 02:37 4 07/03/24 01:18 07/02/24 23:12 4 07/02/24 23:08 4
[2024-07-03 11:31] LABS: Estimated Average Glucose 174 mg/dl; Hemoglobin A1C 7.7 % (4.5-5.6)
[2024-07-03] MEDS: IRON SUCROSE 300 MG in SODIUM CHLORIDE 0.9% 250 ML IV ONE (11:50)
[2024-07-03 11:53] VITALS: BP 118/71; PULSE 108; RESP 18; O2SAT 93
--- NOTE | 2024-07-03 11:57 | Discharge Summary ---
Discharge Summary Date of Service July 03, 2024 Principal Dx & Hospital Course #1 = Principal Diagnosis (1) Weakness: Ms. Garcia is an 83 year old woman with h/o CKD 4, DMTI, paroxsymal afib, HTN, meningioma s/p resection 2014, hyperthyroidism, multinodular goiter, status post left hip replacement who lives with her family, son and was brought in because of confusion, weakness and found to have COVID. Patient admitted for management of ak on ckd IV. Course complicated by a fib rvr and abnormal tfts. Patient with follow up in [place] and [place], therefore most accessible records in recent history are unobtainable from [place]. Patient no longer on methimazole 2/2 abnormal tfts/ high TSH after initiation. Given concerns of ongoing a fib, methimazole was initiated after TT conversation with Dr. Elvi Whyte. Additionally, metoprolol increased to 100mg XL BID and patient still requiring IV lopressor. Patient with hypoxic resp failure 2/2 acute heart failure with preserved EF and CKD. Patient started on torsemide 100mg daily to help with fluid removal and given no resp distress will likely dispo on home o2 with close nephrology follow up. Long discussion with sons and revealed family wants all efforts pursued, even discussions of PD. Course prolonged given need for heart rate management. Decision was made to coordinate discharge for patient with close outpatient follow up. Patient declined iron infusion, but agreed to procrit. 2 step completed with 2L continuous needed for home oxygen. home health services coordinated. On day of discharge, patient was more alert and interactive than days prior. Patient ambulates with assistance from and sons. patient has strong support system. She reports increased appetite and improved mood. Long discussion with son regarding discharge follow up was had. Son agreeable to trial home PT/OT #Acute hypoxic resp failure #Pulmonary edema Patient required fluid resuscitation 2/2 ABEL on CKD IV, however, now with vascular congestion and pleural effusion Discussing with Nephrology diuresis recommendations -Discharged with torsemide 60mg daily -Patient with appointment on 07/09, requires CXR and BMP the morning of appt -continue KCL 40meq BID Discharged with 2L continuous #Normocytic anemia #Thrombocytopenia Baseline roughly 9 No signs of bleed noted, Encouraged patient to allow for repeat draw Folate low, replace PO Iron low, replace PO Declined venofer s/p dose of procrit on 07/03 #Acute metabolic encephalopathy *resolved #Cerebral Amyloid Angiopathy #Meningioma s/p resection with h/o of seizures likely multifactorial, a fib/covid/?UTI/hyperthyroid at baseline this am per [facility] precautions no AC per family 2/2 risk of ICH, refused chemoprophylaxis for DVT ppx Reports poor appetite--continue mirtazapine 7.5mg qhs #Acute uncomplicated cysitis hard to decipher UA, suspicious for possible infection Reports history of prior UTI completed course of IV abx #Atrial fibrillation with RVR s/p watchman (per son) TSH low with ft4 1.75, previously on medications over a year ago No longer on DOAC frailty/cerebral amyloid angiopathy per family Previously rate controlled with Metoprolol 100mg XL qpm Transitioned to Metoprolol 50mg BID then to Metorpolol tartrate 37.5 qid IV lopressor prn Cards consult--optimization -continue Metoprolol 100mg XL BID Endo consult--driving factor for a fib -methimazole as below #DMT1, GAD65 antibody + Patient to use home pump per family request #Hyperthyroidism, uncontrolled #Hx of multinodular goiter. followed by endocrinology in [place] - TRAB negative, thyroid antibodies negativehistorically TSH 0.0019, FT4 1.75 Consult endocrine: consider methimazole resumption at lower frequency, c/f driving RVR -Continue Methimazole 5mg BID, follow up labs in 3-4 weeks with Endo #ABEL on CKD stage IV on admission 4.09 Avoid nephrotoxic agents Gentle fluids Will follow labs in a.m. Continue sodium bicarbonate Nephrology consulted, appreciate recs Slow improvement--discharge with K supplement and torsemide 60mg daily #COVID infection COVID precautions Supportive care Close monitor #Hyperlipidemia On statin and Zetia #Elevated troponin iso demand from RVR and CKDIV Mostly demand ischemia #Acute on Chronic diastolic CHF Monitor for volume overload, start PO diuretic per nephrology diuertic and home o2 as above Cardiology follow up in 1-2 weeks #Hypertension On metoprolol succinate and nifedipine #History of TIA On aspirin Plavix and statin Notes For Next Care Provider -Hyperthyroidism: started on Methimazole, needs close endo follow up -A Fib: persistent throughout admission, needs close Cardiology follow up -CKD: needs labs (CBC, BMP, Mag) and CXR ordered for follow up with Nephrology -Mirtazapine to aid with appetite Medication Changes From Visit Methimazole 5mg BID Metoprolol XL 100mg BID Torsemide 60mg daily KCL 40meq BID Folate 1gm daily Iron 325mg daily Mirtazapine 7.5mg daily for appetite Admission HPI Per Admitting Provider 83-year-old female with past med history significant for type 2 diabetes, proteinuria due to type 2 diabetes, CKD stage IV, hyperlipidemia, hyperthyroidism, hyperparathyroidism, right thyroid nodule, paroxysmal atrial fibrillation, chronic diastolic CHF, hypertension, history of TIA, history of status post left hip replacement who lives with her family, son and was brought in because of confusion, weakness and found to have COVID. As per son for last 2- 3 days patient appetites been very low. She was also coughing. Feeling very weak. Patient's and's grandson has COVID. As per son no nausea /vomiting and no diarrhea. Ambulates with a walker and her helps her ambulate. Patient currently able to tell her name, knows that she is in the hospital, could tell current month and year and knows her date of . Patient denies any headache. Denies nausea. Denies chest pain. Denies shortness of breath. Denies abdominal pain. States normal bowel and bladder movements. Hemodynamics are okay. Saturating okay on room air. Patient lives both in [place] and [place]. Follows nephrology in [place] and also in [place] Past medical history. As mentioned above Past surgical history. As per son patient recently had watchman's procedure. History of left hip replacement. Social history. . No smoking. 1 glass of wine nightly as per [employer] No drug use. Family history. No family history on file Admission Exam Per Admitting Provider General-Not in acute distress. Head- atraumatic Eyes- PERRL ENT- oropharynx clear Neck- supple, no JVD. Lungs- clear to auscultation no wheezing or crackles. Heart- regular rhythm; no murmur, no gallop. Abdomen- normal bowel sounds, soft, nontender, no distension Extremities- no pretibial edema, no erythema seen Neuro- alert, oriented PERRL, no facial palsy; no dysarthria; moves extremities. Discharge Exam Constitutional WD/WN, vitals as above thin frail woman but more communicative and alert/bright this morning Respiratory diminished bibasilar breath sounds, no distress noted Cardiovascular irregularly irregular Gastrointestinal (Abdomen) normal bowel sounds, soft, nontender, no hepatosplenomegaly Updated Medication List Medication Instructions Recorded Confirmed Type aspirin 81 mg tablet,delayed 81 mg PO QAM 06/28/24 06/28/24 History release atorvastatin 40 mg tablet 40 mg PO QAM 06/28/24 06/28/24 History clopidogrel 75 mg tablet 75 mg PO QAM 06/28/24 06/28/24 History ezetimibe 10 mg tablet 10 mg PO DAILY 06/28/24 06/28/24 History insulin aspart U-100 100 unit/mL 0 sliding scale dose continuous 06/28/24 06/28/24 History subcutaneous solution (Novolog subcutaneous infusion CONTINOUS U-100 Insulin aspart) nifedipine 60 mg tablet,extended 60 mg PO QAM 06/28/24 06/28/24 History release 24 hr sodium bicarbonate 650 mg tablet 1,300 mg PO BID 06/28/24 06/28/24 History ferrous sulfate 325 mg (65 mg 325 mg PO QAM #30 tabs 07/03/24 Rx iron) tablet,delayed release folic acid 1 mg tablet 1 mg PO QAM #30 tabs 07/03/24 Rx methimazole 5 mg tablet 5 mg PO BID #60 tabs 07/03/24 Rx metoprolol succinate 100 mg 100 mg PO BID #60 tabs 07/03/24 Rx tablet,extended release 24 hr mirtazapine 15 mg tablet 7.5 mg (1/2 x 15 mg) PO HS #30 tabs 07/03/24 Rx potassium chloride 40 mEq/15 mL 40 meq (15 mL) PO BID #473 mL 07/03/24 Rx oral liquid torsemide 20 mg tablet 60 mg (3 x 20 mg) PO QAM 30 days 07/03/24 Rx #90 tabs Hospital Stay Data Consultations 06/28/24 20:33 ED Decision to Admit Stat 06/29/24 08:00 Consult Nephrology Routine 06/30/24 09:15 Consult Cardiology Routine Diagnostic Imagining Performed 06/28/24 17:34 CT head/brain wo con Stat Pending Results Patient Have Any Pending Studies at Discharge: No Discharge Instructions Given to Patient (Per Discharging Provider) You were admitted for confusion and weakness. You were found to have COVID infection, in addition to multiple other concerns. In regards to COVID, it was self limited and will likely continue to feel improved with time. In regards to your kidneys, your renal function has continued to worsen. You were seen by nephrology and started on a water pill/diuretic. Given the difficult predicament to rehydrate you when you first came in and the poor ability of your kidneys to handle fluid volume, you currently have fluid on your lungs that require oxygen. To be gentle with your kidneys, we will continue a water pill by mouth and close follow up with Nephrology, as well as home oxygen. -Start Torsemide 60mg daily -Start potassium chloride 40meq two times a day You have a Nephrology appointment on 07/09/2024. Please obtain a chest xray and labs before the appointment. In regards to your heart, you were noted to be in atrial fibrillation with a rapid rate. This is likely due to many reasons as well, like the COVID infection, hyperthyroidism, and kidney failure. Your home medication was adjusted as follows: -Start Metoprolol Succinate 100mg two times a day Please follow up with Cardiology in 1-2 weeks. In regards to your hyperthyroidism, your labs were noted to be elevated and after talking to Endocrinology, it was recommended to start the following: -Start Methimazole 5mg two times a day Please follow with Endocrinology in 3-4 weeks for lab work and further medication adjustment as necessary. In regards to your appetite, you were started on a medication to help increase your hunger. -Start Mirtazapine 7.5mg at bedtime. Please consider supplementing your diet with protein drinks (like ensure/boost) up to three times daily. You were noted to have some vitamin and mineral deficiencies as well. Please start a daily iron supplement and discuss iron replacement therapy with Nephrology. Please continue folic acid replacement, this can be on its own like prescribed or in a multivitamin (discuss Nephrovit with your [employer]) Please continue home oxygen 2L at rest and with exertion. Please consider follow up with audiology to assess hearing and need for aids. Total Time Total Time Spent Total Time Spent (In Minutes): 45
[2024-07-03] MEDS: EPOETIN ALFA 20,000 UNITS/ML VIAL SQ ONE (12:22)
[2024-07-04] MEDS ORDERED: TORSEMIDE 20 MG TAB PO SCH (09:00)
== END 2024-07-03 16:15 | disposition home health service (06) | DRG 177 ==
LOC: ED 17:27 → EDINP 06-29 00:24 → 2W 06-29 00:58

== ENCOUNTER 2024-07-06 15:45 | Inpatient (IN) ==
[2024-07-06 16:18] LABS: iSTAT Creatinine 4.6 mg/dl (0.6-1.3); iSTAT Hemoglobin 8.2 g/dl (12.0-16.0); iSTAT Ionized Calcium 1.04 mmol/l (1.12-1.32); iSTAT Potassium 6.2 mmol/L (3.3-5.0)
[2024-07-06 16:21] LABS: Basophils # (auto) 0.03 K/uL (0.00-0.20); Basophils % (auto) 0.3 %; Eosinophils # (auto) 0.07 K/uL (0.00-0.50); Eosinophils % (auto) 0.7 %; Hematocrit (blood only) 25.9 % (37.0-47.0); Immature Granulocytes # (auto) 0.31 K/uL (0.01-0.20); Immature Granulocytes % (auto) 3.3 %; Lymphocytes # (auto) 1.74 K/uL (1.20-3.40); Lymphocytes % (auto) 18.6 %; Mean Corpuscular Hemoglobin 28.6 pg (25.0-34.0); Mean Corpuscular Hgb Conc 30.9 g/dL (32.0-36.0); Mean Corpuscular Volume 92.5 fL (80.0-100.0); Mean Platelet Volume 11.3 fL (9.4-12.4); Monocytes # (auto) 0.88 K/uL (0.11-0.59); Monocytes % (auto) 9.4 %; Neutrophils # (auto) 6.32 K/uL (1.40-6.50); Neutrophils % (auto) 67.7 %; Nucleated RBC # (auto) 0.25 K/uL (0.00-0.12); Nucleated RBC % (auto) 2.7 %; Platelet Count 257 K/uL (130-400); RDW Coefficient of Variation 13.9 % (11.5-14.5); White Blood Count 9.35 K/ul (4.8-10.8)
[2024-07-06 16:43] LABS: Albumin Globulin Ratio 1.1 (0.9-2); Albumin Level 3.5 gm/dl (3.4-5.0); Bilirubin,Total 0.4 mg/dl (0.2-1.0); Calcium 8.4 mg/dl (8.6-10.3); Creatinine Clr Calc Pharmacy 8.3 ml/min; Echinocytes 1+; Est GFR (African American) 10.5 ml/min; Est GFR (Non-African American) 9.1 ml/min; Globulin 3.2 gm/dl (2.5-4.0); Magnesium 1.9 mg/dl (1.7-2.4); Polychromasia 1+; Potassium 6.3 mmol/L (3.5-5.1); Total Protein 6.7 gm/dl (6.0-8.3)
--- NOTE | 2024-07-06 16:44 | Emergency Department Note ---
Impression & Plan Generalized weakness, Acute confusion, Acute hypokalemia, Hypocalcemia, Acute kidney injury superimposed on chronic kidney disease, Elevated troponin ED Provider Note HISTORY OF PRESENT ILLNESS: Patient is an 83-year-old female presenting with lethargy and confusion. Family provides most of history. Reports that the patient went down for a nap around 4 hours ago when she woke up and was very lethargic and difficult to arouse per family. Reports that the patient has been having intermittent episodes of lethargy and confusion since testing positive for COVID 9 days ago. They state that she was subjectively improving over the last few days but today she was significantly worse. Family reports that when she woke up from her nap she was not making sense. On arrival to the ER, the patient is amnestic to the events leading up to her being in the emergency department. Family reports the patient has a history of short-term memory loss. EMS reports the patient saturations were in the 60s on room air, but on arrival to the ER patient saturations are improved. Patient's family at bedside reports that the patient's mental status is improving significantly from when she woke up from her nap. No recent fevers at home. Patient denies any chest pain or shortness of breath. Family expresses concern about the patient's ability to get around at home, as it is requiring a 2 person assist to get her up out of bed into the bathroom. ROS: as above PHYSICAL EXAM: Constitutional: Patient appears in no acute distress. HENT: Head: Normocephalic and atraumatic. Eyes: EOMI, PERRL Mouth/Throat: Mucous membranes moist. Neck: Trachea midline. Neck supple. Cardiovascular: Tachycardic with regular rhythm. No murmurs, rubs or gallops. Intact distal pulses. Pulmonary/Chest: No respiratory distress. Breath sounds clear and equal bilaterally. No wheezes or rales. Abdominal: Abdomen soft, no tenderness, rebound or guarding. Musculoskeletal: No edema, tenderness or deformity noted. Skin: Warm and dry. No rash, erythema, pallor or cyanosis Neurological: Alert. CN II-XII grossly intact, moving all extremities equally and fully. MDM: - Vitals signs showed hypotension and tachycardia. - History obtained via patient's family, given patient's amnesia to the events of the day. History as above. - Chronic conditions affecting care: Paroxysmal A-fib; DM-2; CKD stage 4; DM-2; HTN; meningioma s/p resection 2014; hyperthyroidism - Differential diagnoses include, but are not limited to: CVA; intracranial hemorrhage; viral syndrome; ACS; electrolyte abnormality; dysrhythmia; pneumonia; UTI - Order placed for continuous cardiac monitoring. At this time, monitor showed rate of 99 bpm with irregular rhythm, per my interpretation. - External medical records reviewed. Discharge summary dated 07/03/2024 was reviewed. Patient was admitted for acute hypoxic respiratory failure due to pulmonary edema and COVID. She also admitted for weakness. - EKG interpreted by myself showed atrial fibrillation. Rate 83 bpm. QT 394. No acute ischemic changes. - Laboratory workup interpreted by myself showed normal WBC; anemia (Hgb 8.0); normal PT/INR; normal lactate; ABEL on CKD (Cr 4.27); hyperkalemia (K 6.3); hypocalcemia (Ca 8.4); elevated troponin (14.4); normal procalcitonin; low TSH with normal T4 - Viral panel positive for COVID. Patient has been positive for COVID for the last 9 days. - CXR negative for pneumonia, per my interpretation - CT head wo contrast negative for acute intracranial pathology - Patient given 1 L normal saline with improvement in her hypotension. She was given 1 g of IV calcium gluconate, 50 mL of dextrose and 10 units of IV insulin for her hyperkalemia. - Family expresses concern about the patient being discharged home given her weakness. They are agreeable to PT/OT assessment and potential placement if recommended. - Discussion was had with oil field caser about patient's case and need for admission - Hospitalist consulted for admission - [facility]. I have personally spent 63 minutes of critical care time in the direct management of this patient. This includes bedside care, interpretation of diagnostic studies, and testing, discussion with consultants, patient, and family members, and other required patient management activities. This 63 minutes is in excess of all separately billable procedures. ASSESSMENT AND PLAN: Diagnosis: Generalized weakness; acute confusion; ABEL on CKD; hyperkalemia; elevated troponin; hypocalcemia Plan: admit Past Med/Surg History Problem List (Updated 07/06/24 @ 18:04 by Marichuy Simmons MD) Elevated troponin (Acute) Acute kidney injury superimposed on chronic kidney disease (Acute) Hypocalcemia (Acute) Acute hypokalemia (Acute) Acute confusion (Acute) Generalized weakness (Acute) Atrial fibrillation with controlled ventricular response Renal failure (ARF), acute on chronic Weakness COVID-19 virus infection (Acute) Social History Smoking Status: Never smoker Do You Dip or Chew Tobacco: No; Hx Alcohol Use: No Hx Substance Use: No Preferred Language: Bahamian Machine Rigger Required: No Beliefs That Will Affect Care: None Current Living Situation: Spouse and Family Feels Safe at Home: Yes Assistive Devices: Walker Allergies Allergies Allergy/AdvReac Type Severity Reaction Status Date / Time No Known Allergies Allergy Verified 06/28/24 17:33 Home Meds Home Medications Medication Instructions Recorded Confirmed aspirin 81 mg tablet,delayed 81 mg PO QAM 06/28/24 06/28/24 release atorvastatin 40 mg tablet 40 mg PO QAM 06/28/24 06/28/24 clopidogrel 75 mg tablet 75 mg PO QAM 06/28/24 06/28/24 ezetimibe 10 mg tablet 10 mg PO DAILY 06/28/24 06/28/24 insulin aspart U-100 100 unit/mL 0 sliding scale dose continuous 06/28/24 06/28/24 subcutaneous solution (Novolog subcutaneous infusion CONTINOUS U-100 Insulin aspart) nifedipine 60 mg tablet,extended 60 mg PO QAM 06/28/24 06/28/24 release 24 hr sodium bicarbonate 650 mg tablet 1,300 mg PO BID 06/28/24 06/28/24 Previous Rx's Medication Instructions Recorded ferrous sulfate 325 mg (65 mg 325 mg PO QAM #30 tabs 07/03/24 iron) tablet,delayed release folic acid 1 mg tablet 1 mg PO QAM #30 tabs 07/03/24 methimazole 5 mg tablet 5 mg PO BID #60 tabs 07/03/24 metoprolol succinate 100 mg 100 mg PO BID #60 tabs 07/03/24 tablet,extended release 24 hr mirtazapine 15 mg tablet 7.5 mg (1/2 x 15 mg) PO HS #30 tabs 07/03/24 potassium chloride 40 mEq/15 mL 40 meq (15 mL) PO BID #473 mL 07/03/24 oral liquid torsemide 20 mg tablet 60 mg (3 x 20 mg) PO QAM 30 days 07/03/24 #90 tabs amoxicillin 500 mg tablet 500 mg PO BID 10 days #20 tabs 07/05/24 Results & Data (ED) Vital Signs Vital Signs - 24 hr 07/06/24 15:54 07/06/24 16:18 07/06/24 16:19 Temperature 37.3 C Temperature Source Oral Pulse Rate 72 96 H Pulse Rate from SpO2 Sensor Pulse Rhythm Regular Pulse Strength Normal Respiratory Rate 17 Respiratory Effort / Characteristics Non-Labored Respiratory Depth Normal Blood Pressure 79/56 L Blood Pressure Mean 63 Blood Pressure Position Sitting Pulse Oximetry 98 98 Oxygen Delivery Method Room Air Room Air Sepsis Recent Fever Within 48 Hours No Sepsis New/Unexplained Change in Mental Status No Sepsis Action Taken by Nursing No Action Required 07/06/24 16:30 07/06/24 16:30 07/06/24 16:51 Temperature Temperature Source Pulse Rate 84 84 Pulse Rate from SpO2 Sensor 93 H 106 H Pulse Rhythm Pulse Strength Respiratory Rate 16 18 Respiratory Effort / Characteristics Respiratory Depth Blood Pressure 94/59 L Blood Pressure Mean 73 Blood Pressure Position Pulse Oximetry 76 L 98 Oxygen Delivery Method Sepsis Recent Fever Within 48 Hours Sepsis New/Unexplained Change in Mental Status Sepsis Action Taken by Nursing 07/06/24 17:09 07/06/24 17:20 07/06/24 17:21 Temperature Temperature Source Pulse Rate 83 Pulse Rate from SpO2 Sensor 93 H Pulse Rhythm Pulse Strength Respiratory Rate 14 Respiratory Effort / Characteristics Respiratory Depth Blood Pressure 117/81 117/81 Blood Pressure Mean 93 109 Blood Pressure Position Pulse Oximetry 91 Oxygen Delivery Method Sepsis Recent Fever Within 48 Hours Sepsis New/Unexplained Change in Mental Status Sepsis Action Taken by Nursing 07/06/24 17:24 07/06/24 17:30 07/06/24 17:31 Temperature Temperature Source Pulse Rate 88 104 H Pulse Rate from SpO2 Sensor 87 97 H Pulse Rhythm Pulse Strength Respiratory Rate 16 19 Respiratory Effort / Characteristics Respiratory Depth Blood Pressure 106/75 Blood Pressure Mean 88 Blood Pressure Position Pulse Oximetry 99 98 Oxygen Delivery Method Sepsis Recent Fever Within 48 Hours Sepsis New/Unexplained Change in Mental Status Sepsis Action Taken by Nursing 07/06/24 17:42 07/06/24 17:54 07/06/24 18:01 Temperature Temperature Source Pulse Rate 96 H 96 H Pulse Rate from SpO2 Sensor 111 H 150 H Pulse Rhythm Pulse Strength Respiratory Rate 15 19 Respiratory Effort / Characteristics Respiratory Depth Blood Pressure 106/58 L Blood Pressure Mean 70 Blood Pressure Position Pulse Oximetry 97 79 L Oxygen Delivery Method Sepsis Recent Fever Within 48 Hours Sepsis New/Unexplained Change in Mental Status Sepsis Action Taken by Nursing 07/06/24 18:12 07/06/24 18:21 07/06/24 18:24 Temperature Temperature Source Pulse Rate 98 H 85 90 Pulse Rate from SpO2 Sensor 99 H 89 102 H Pulse Rhythm Pulse Strength Respiratory Rate 23 13 14 Respiratory Effort / Characteristics Respiratory Depth Blood Pressure Blood Pressure Mean Blood Pressure Position Pulse Oximetry 99 98 98 Oxygen Delivery Method Sepsis Recent Fever Within 48 Hours Sepsis New/Unexplained Change in Mental Status Sepsis Action Taken by Nursing 07/06/24 18:30 07/06/24 18:33 Temperature Temperature Source Pulse Rate 99 H Pulse Rate from SpO2 Sensor 91 H Pulse Rhythm Pulse Strength Respiratory Rate 10 L Respiratory Effort / Characteristics Respiratory Depth Blood Pressure 101/60 Blood Pressure Mean 74 Blood Pressure Position Pulse Oximetry 99 Oxygen Delivery Method Sepsis Recent Fever Within 48 Hours Sepsis New/Unexplained Change in Mental Status Sepsis Action Taken by Nursing Laboratory Data 07/06/24 16:01 07/06/24 16:01 Lab Results 07/06/24 07/06/24 07/06/24 Range/Units 16:01 16:06 16:19 WBC 9.35 (4.8-10.8) K/ul RBC 2.80 L (4.20-5.40) M/uL Hgb 8.0 L (12.0-16.0) g/dl POC Hgb 8.2 L (12.0-16.0) g/dl Hct 25.9 L (37.0-47.0) % POC Hct 24 L (37-47) % MCV 92.5 (80.0-100.0) fL MCH 28.6 (25.0-34.0) pg MCHC 30.9 L (32.0-36.0) g/dL RDW Std Deviation 46.0 (36.4-46.3) fL RDW Coeff of Sean 13.9 (11.5-14.5) % Plt Count 257 (130-400) K/uL MPV 11.3 (9.4-12.4) fL Immature Gran % (Auto) 3.3 % Neut % (Auto) 67.7 % Lymph % (Auto) 18.6 % [place] % (Auto) 9.4 % Eos % (Auto) 0.7 % Baso % (Auto) 0.3 % Neut # (Auto) 6.32 (1.40-6.50) K/uL Lymph # (Auto) 1.74 (1.20-3.40) K/uL [place] # (Auto) 0.88 H (0.11-0.59) K/uL Eos # (Auto) 0.07 (0.00-0.50) K/uL Baso # (Auto) 0.03 (0.00-0.20) K/uL Immature Gran # (Auto) 0.31 H (0.01-0.20) K/uL Absolute Nucleated RBC 0.25 H (0.00-0.12) K/uL Nucleated RBC % (auto) 2.7 % Polychromasia 1+ Echinocytes 1+ PT 11.4 (9.0-12.0) Seconds INR 1.1 (0.9-1.1) POC Sodium 135 (135-144) mmol/L Sodium 138 (136-145) mmol/L POC Potassium 6.2 H* (3.3-5.0) mmol/L Potassium 6.3 H* (3.5-5.1) mmol/L POC Chloride 101 (101-112) mmol/L Chloride 99 (98-107) mmol/L Carbon Dioxide 28 (21-32) mmol/L POC Total CO2 25 (24-31) mmol/L Anion Gap 11 (3-11) POC Anion Gap 17.0 (16-25) mmol/L POC BUN 75 H (7-18) mg/dl BUN 77 H (6-23) mg/dl Creatinine 4.27 H (0.6-1.2) mg/dl POC Creatinine 4.6 H* (0.6-1.3) mg/dl Est Cr Clr Drug Dosing 8.3 ml/min Est GFR ( Amer) 10.5 ml/min Est GFR (Non-Af Amer) 9.1 ml/min BUN/Creatinine Ratio 18.0 (10-20) Glucose 220 H (70-99(Fasting)) mg/dl POC Glucose (70-99) mg/dl POC Glucose (other) 216 H (70-99) mg/dl Lactate 1.8 (0.4-2.0) mmol/L Calcium 8.4 L (8.6-10.3) mg/dl POC Ioniz Calcium Ryan 1.04 L (1.12-1.32) mmol/l Magnesium 1.9 (1.7-2.4) mg/dl Total Bilirubin 0.4 (0.2-1.0) mg/dl AST 13 (13-39) U/L ALT 7 (7-52) U/L Alkaline Phosphatase 75 (34-104) U/L Troponin I High Sens 14.4 H (0-14) pg/ml Total Protein 6.7 (6.0-8.3) gm/dl Albumin 3.5 (3.4-5.0) gm/dl Globulin 3.2 (2.5-4.0) gm/dl Albumin/Globulin Ratio 1.1 (0.9-2) Procalcitonin 0.27 (0-0.5) ng/ml TSH 0.025 L (0.300-4.500) uIu/ml Free T4 1.34 (0.61-1.60) ng/dl Adenovirus (PCR) Not Detected (NotDetected) B. pertussis DNA (PCR) Not Detected (NotDetected) B.parapertussis DNA PCR Not Detected (NotDetected) C. pneumoniae DNA (PCR) Not Detected (NotDetected) Coronavirus OC43 (PCR) Not Detected (NotDetected) Coronavirus HKU1 (PCR) Not Detected (NotDetected) Coronavirus 229E (PCR) Not Detected (NotDetected) SARS-CoV-2 (PCR) DETECTED A (NotDetected) Coronavirus NL63 (PCR) Not Detected (NotDetected) Human Metapneumovir PCR Not Detected (NotDetected) Influenza Type A (PCR) Not Detected (NotDetected) Influenza Type B (PCR) Not Detected (NotDetected) M. pneumoniae (PCR) Not Detected (NotDetected) Parainfluenza 1 (PCR) Not Detected (NotDetected) Parainfluenza 2 (PCR) Not Detected (NotDetected) Parainfluenza 3 (PCR) Not Detected (NotDetected) Parainfluenza 4 (PCR) Not Detected (NotDetected) RSV (PCR) Not Detected (NotDetected) Entero/Rhino (PCR) Not Detected (NotDetected) 07/06/24 07/06/24 Range/Units 17:49 18:35 WBC (4.8-10.8) K/ul RBC (4.20-5.40) M/uL Hgb (12.0-16.0) g/dl POC Hgb (12.0-16.0) g/dl Hct (37.0-47.0) % POC Hct (37-47) % MCV (80.0-100.0) fL MCH (25.0-34.0) pg MCHC (32.0-36.0) g/dL RDW Std Deviation (36.4-46.3) fL RDW Coeff of Sean (11.5-14.5) % Plt Count (130-400) K/uL MPV (9.4-12.4) fL Immature Gran % (Auto) % Neut % (Auto) % Lymph % (Auto) % [place] % (Auto) % Eos % (Auto) % Baso % (Auto) % Neut # (Auto) (1.40-6.50) K/uL Lymph # (Auto) (1.20-3.40) K/uL [place] # (Auto) (0.11-0.59) K/uL Eos # (Auto) (0.00-0.50) K/uL Baso # (Auto) (0.00-0.20) K/uL Immature Gran # (Auto) (0.01-0.20) K/uL Absolute Nucleated RBC (0.00-0.12) K/uL Nucleated RBC % (auto) % Polychromasia Echinocytes PT (9.0-12.0) Seconds INR (0.9-1.1) POC Sodium (135-144) mmol/L Sodium (136-145) mmol/L POC Potassium (3.3-5.0) mmol/L Potassium (3.5-5.1) mmol/L POC Chloride (101-112) mmol/L Chloride (98-107) mmol/L Carbon Dioxide (21-32) mmol/L POC Total CO2 (24-31) mmol/L Anion Gap (3-11) POC Anion Gap (16-25) mmol/L POC BUN (7-18) mg/dl BUN (6-23) mg/dl Creatinine (0.6-1.2) mg/dl POC Creatinine (0.6-1.3) mg/dl Est Cr Clr Drug Dosing ml/min Est GFR ( Amer) ml/min Est GFR (Non-Af Amer) ml/min BUN/Creatinine Ratio (10-20) Glucose (70-99(Fasting)) mg/dl POC Glucose 350 H* 248 H (70-99) mg/dl POC Glucose (other) (70-99) mg/dl Lactate (0.4-2.0) mmol/L Calcium (8.6-10.3) mg/dl POC Ioniz Calcium Ryan (1.12-1.32) mmol/l Magnesium (1.7-2.4) mg/dl Total Bilirubin (0.2-1.0) mg/dl AST (13-39) U/L ALT (7-52) U/L Alkaline Phosphatase (34-104) U/L Troponin I High Sens (0-14) pg/ml Total Protein (6.0-8.3) gm/dl Albumin (3.4-5.0) gm/dl Globulin (2.5-4.0) gm/dl Albumin/Globulin Ratio (0.9-2) Procalcitonin (0-0.5) ng/ml TSH (0.300-4.500) uIu/ml Free T4 (0.61-1.60) ng/dl Adenovirus (PCR) (NotDetected) B. pertussis DNA (PCR) (NotDetected) B.parapertussis DNA PCR (NotDetected) C. pneumoniae DNA (PCR) (NotDetected) Coronavirus OC43 (PCR) (NotDetected) Coronavirus HKU1 (PCR) (NotDetected) Coronavirus 229E (PCR) (NotDetected) SARS-CoV-2 (PCR) (NotDetected) Coronavirus NL63 (PCR) (NotDetected) Human Metapneumovir PCR (NotDetected) Influenza Type A (PCR) (NotDetected) Influenza Type B (PCR) (NotDetected) M. pneumoniae (PCR) (NotDetected) Parainfluenza 1 (PCR) (NotDetected) Parainfluenza 2 (PCR) (NotDetected) Parainfluenza 3 (PCR) (NotDetected) Parainfluenza 4 (PCR) (NotDetected) RSV (PCR) (NotDetected) Entero/Rhino (PCR) (NotDetected) Administered Medications Discontinued Medications Dextrose (Dextrose 50% 50 Ml Syringe) 50 ml IV NOW ONE Stop: 07/06/24 16:42 Last Admin: 07/06/24 17:35 Dose: 50 ml Documented By: LANRE Sodium Chloride (Nss) 1,000 mls @ 999 mls/hr IV .Q1H1M ONE Stop: 07/06/24 17:41 Last Admin: 07/06/24 16:55 Dose: 999 mls/hr Documented By: LANRE Calcium Gluconate () 1,000 mg in 60 mls @ 240 mls/hr IV NOW STA Stop: 07/06/24 16:55 Last Infusion: 07/06/24 18:03 Dose: Infused Documented By: Admin: 07/06/24 17:34 Dose: 240 mls/hr Documented By: LANRE Insulin Human Regular (Novolin-R Insulin Per Unit Charge) 10 units IV NOW STA Stop: 07/06/24 16:42 Last Admin: 07/06/24 17:39 Dose: 10 units Documented By: LANRE Co-signed By: MS Imaging Data Radiologist's Impression: Chest X-Ray 07/06/24 15:56 SINGLE VIEW CHEST CLINICAL HISTORY: Generalized weakness. FINDINGS: An AP, portable, upright chest radiograph is compared to study dated 07/01/2024. The occlusion device projects over the left heart border. The heart is enlarged noting atherosclerotic calcification of the thoracic aorta. The pulmonary vasculature is noncongested. Chronic interstitial thickening is similar to previous. The lungs and pleural spaces are clear. No pneumothorax is seen. The skeletal structures are osteopenic. The bony thorax is grossly intact. Arthritic change is seen in the shoulders. IMPRESSION: Cardiomegaly with no active disease in the chest. ACT 112: Negative or not required by law. Electronically signed by: jT Meade M.D. 07/06/2024 4:[address] 07/06/24 15:57 CT SCAN OF THE BRAIN WITHOUT IV CONTRAST CLINICAL HISTORY: Lethargy. Weakness. COMPARISON STUDY: CT of the brain dated 06/28/2024. TECHNIQUE: Unenhanced axial CT scan of the brain is performed from the vertex to the skull base. A dose lowering technique was utilized adhering to the principles of ALARA. CT DOSE: 938. mGy.cm FINDINGS: Brain parenchyma: There is age-related involutional change noting moderate subcortical and periventricular microangiopathic disease. High left frontal encephalomalacia is unchanged and consistent with a remote insult. There is no hemorrhage, mass effect, or evidence of acute territorial ischemia by CT criteria. Ibarra-white matter differentiation is preserved. No extra-axial fluid collection is seen. Ventricles, sulci, cisterns: Prominent secondary to involutional change. Intracranial vasculature: There is atherosclerotic calcification of the cavernous carotid arteries. Calvarium: There is evidence of previous left frontal craniotomy. No destructive calvarial lesion is seen. Sinuses and mastoids: There is mild mucosal thickening in the left maxillary antrum. The remaining visualized paranasal sinuses are clear. The mastoid air cells are well pneumatized. Orbits: The bony orbits are grossly intact. There are bilateral ocular lens implants. IMPRESSION: There is no hemorrhage, mass effect, or evidence of acute territorial ischemia by CT criteria. ACT 112: Negative or not required by law. Electronically signed by: Tj Meade M.D. 07/06/2024 4:51 PM Discharge Plan Visit Data Chief Complaint: Lethargic Stated Complaint: LETHARGIC ED Provider: Marichuy Simmons Discharge Problem: Generalized weakness, Acute confusion, Acute hypokalemia, Hypocalcemia, Acute kidney injury superimposed on chronic kidney disease, Elevated troponin Forms Stand Alone Forms: My [facility] Prescriptions Prescriptions: No Action atorvastatin 40 mg tablet 40 mg PO QAM clopidogrel 75 mg tablet 75 mg PO QAM aspirin 81 mg Tablet,Delayed Release (Dr/Ec) 81 mg PO QAM nifedipine 60 mg tablet extended release 24hr 60 mg PO QAM sodium bicarbonate 650 mg tablet 1,300 mg PO BID insulin aspart U-100 [Novolog U-100 Insulin aspart] 100 unit/mL solution 0 sliding scale dose continuous subcutaneous infusion CONTINOUS ezetimibe 10 mg tablet 10 mg PO DAILY folic acid 1 mg Tablet 1 mg PO QAM Qty: 30 0RF methimazole 5 mg Tablet 5 mg PO BID Qty: 60 0RF mirtazapine 15 mg Tablet 7.5 mg PO HS Qty: 30 0RF ferrous sulfate 325 mg (65 mg iron) Tablet,Delayed Release (Dr/Ec) 325 mg PO QAM Qty: 30 0RF metoprolol succinate 100 mg tablet extended release 24 hr 100 mg PO BID Qty: 60 3RF torsemide 20 mg Tablet 60 mg PO QAM 30 Days Qty: 90 0RF potassium chloride 40 mEq/15 mL liquid 40 meq PO BID Qty: 473 0RF amoxicillin 500 mg tablet 500 mg PO BID 10 Days Qty: 20 0RF Referrals Referrals: PCP,NO [Primary Care Provider] -
[2024-07-06 16:45] LABS: Troponin I High Sensitivity 14.4 pg/ml (0-14)
[2024-07-06 16:53] LABS: INR 1.1 (0.9-1.1); Prothrombin Time 11.4 Seconds (9.0-12.0)
--- NOTE | 2024-07-06 16:53 | CT Scan Report ---
CT SCAN OF THE BRAIN WITHOUT IV CONTRAST CLINICAL HISTORY: Lethargy. Weakness. COMPARISON STUDY: CT of the brain dated 06/28/2024. TECHNIQUE: Unenhanced axial CT scan of the brain is performed from the vertex to the skull base. A do se lowering technique was utilized adhering to the principles of ALARA. CT DOSE: 938. mGy.cm FINDINGS: Brain parenchyma: There is age-related involutional change noting moderate subcortical and periventri cular microangiopathic disease. High left frontal encephalomalacia is unchanged and consistent with a remote insult. There is no hemorrhage, mass effect, or evidence of acute territorial ischemia by CT criteria. Ibarra-white matter differentiation is preserved. No extra-axial fluid collection is seen. Ventricles, sulci, cisterns: Prominent secondary to involutional change. Intracranial vasculature: There is atherosclerotic calcification of the cavernous carotid arteries. Calvarium: There is evidence of previous left frontal craniotomy. No destructive calvarial lesion is seen. Sinuses and mastoids: There is mild mucosal thickening in the left maxillary antrum. The remaining vi sualized paranasal sinuses are clear. The mastoid air cells are well pneumatized. Orbits: The bony orbits are grossly intact. There are bilateral ocular lens implants. IMPRESSION: There is no hemorrhage, mass effect, or evidence of acute territorial ischemia by CT anastasiya brandt. ACT 112: Negative or not required by law. Electronically signed by: Tj Meade M.D. 07/06/2024 4:51 PM
[2024-07-06 16:54] LABS: Thyroid Stimulating Hormone 0.025 uIu/ml (0.300-4.500)
[2024-07-06] MEDS: SODIUM CHLORIDE 0.9% 1,000 ML IV ONE (16:55)
--- NOTE | 2024-07-06 16:55 | XRay Report ---
SINGLE VIEW CHEST CLINICAL HISTORY: Generalized weakness. FINDINGS: An AP, portable, upright chest radiograph is compared to study dated 07/01/2024. The occlusio n device projects over the left heart border. The heart is enlarged noting atherosclerotic calcificat ion of the thoracic aorta. The pulmonary vasculature is noncongested. Chronic interstitial thickening is similar to previous. The lungs and pleural spaces are clear. No pneumothorax is seen. The skeleta l structures are osteopenic. The bony thorax is grossly intact. Arthritic change is seen in the shoul ders. IMPRESSION: Cardiomegaly with no active disease in the chest. ACT 112: Negative or not required by law. Electronically signed by: Tj Meade M.D. 07/06/2024 4:53 PM
[2024-07-06 17:20] LABS: Adenovirus PCR Not Detected (NotDetected); Bordetella parapertussis PCR Not Detected (NotDetected); Bordetella pertussis PCR Not Detected (NotDetected); Chlamydia pneumoniae PCR Not Detected (NotDetected); Coronavirus 229E PCR Not Detected (NotDetected); Coronavirus CoV-2 (COVID19)PCR DETECTED (NotDetected); Coronavirus HKU1 PCR Not Detected (NotDetected); Coronavirus NL63 PCR Not Detected (NotDetected); Coronavirus OC43PCR Not Detected (NotDetected); Human Metapneumovirus PCR Not Detected (NotDetected); Influenza A PCR Not Detected (NotDetected); Influenza B PCR Not Detected (NotDetected); Mycoplasma pneumoniae PCR Not Detected (NotDetected); Parainfluenza Virus 1 PCR Not Detected (NotDetected); Parainfluenza Virus 2 PCR Not Detected (NotDetected); Parainfluenza Virus 3 PCR Not Detected (NotDetected); Parainfluenza Virus 4 PCR Not Detected (NotDetected); Respiratory Syncytial VirusPCR Not Detected (NotDetected); Rhinovirus/Enterovirus PCR Not Detected (NotDetected)
[2024-07-06 17:30] LABS: T4 Free Thyroxine 1.34 ng/dl (0.61-1.60)
[2024-07-06] MEDS: CALCIUM GLUCONATE 1,000 MG/60 ML BAG IV STA (17:34)
[2024-07-06] MEDS: DEXTROSE 50% 50 ML SYRINGE IV ONE (17:35)
[2024-07-06] MEDS: NovoLIN-R INSULIN PER UNIT CHARGE IV STA (17:39)
--- NOTE | 2024-07-06 18:42 | History & Physical Report ---
Date of Service July 06, 2024 Assessment & Plan (1) Hyperkalemia: (2) Acute metabolic encephalopathy: (3) ABEL (acute kidney injury): (4) Ambulatory dysfunction: Plan Acute hyperkalemia ABEL on CKD IV Hold potassium supplements Received calcium gluconate, insulin in ED Continue IV fluids Hold home torsemide Repeat BMP Started on Lokelma Avoid nephrotoxic agents as able Field Associate nephrology Bladder scan as needed Urine analysis currently pending Monitor for volume status closely given CKD, history of CHF Acute metabolic encephalopathy Likely multifactorial secondary to recent UTI, COVID-19 infection, renal failure with elevated BUN, Hypoxia CT head showed no acute findings Mental status back to baseline while in ED Reorient frequently to minimize delirium Consider neurology evaluation if needed given history of cerebral amyloid angiopathy per record Continue amoxicillin for recent UTI Will consider repeating blood/urine cultures if develops any fever Urine analysis currently pending Ambulatory dysfunction Generalized weakness Secondary to comorbidities PT OT, fall precautions COVID-19 infection Chest x-ray showed no acute disease Currently saturating well on room air Normal procalcitonin Supportive care Chronic mild troponin elevation Likely due to renal failure Doubt ACS Chronic normocytic anemia Denies any bleeding issues Continue iron, folate supplements She declined Venofer in the past Received Procrit 3 days ago Hemoglobin at baseline Monitor Atrial fibrillation Rate controlled Continue metoprolol Currently not on anticoagulation due to cerebral amyloid angiopathy per family Diabetes mellitus type 1 Continue insulin Monitor blood glucose levels Hypothyroidism H/O multinodular goiter Follows with endocrinology in [place] TSH better when compared to recent admission Free T4 within normal limits Continue methimazole Hyperlipidemia Continue home medications Chronic diastolic heart failure Currently no signs of volume overload Diuretics on hold due to ABEL Monitor volume status Hypertension Hold nifedipine as blood pressure low Continue metoprolol with holding parameters History of TIA Continue aspirin, Plavix, statin DVT Px: SCDs for now CODE STATUS Full code History of Present Illness Chief Complaint: Confusion Primary Care Provider: NO PCP Patient is an 83-year-old female with history of CKD stage IV, diabetes mellitus, paroxysmal A-fib, hypertension, meningioma S/P resection in 2014, hypothyroidism, multinodular goiter, cerebral amyloid angiopathy, TIA, diastolic heart failure and other medical problems presents with history of confusion, lethargy, and generalized weakness and ambulatory dysfunction. Patient was h ospitalized 3 days ago and was treated for acute respiratory failure/pulmonary edema, hypothyroidism, COVID-19 infection, UTI, A-fib RVR and ABEL on CKD stage IV and diastolic heart failure. Most of the history is obtained from patient's son and ER staff and old records. Since being discharged patient's appetite has been significantly decreased and she was started on mirtazapine which altered her mood and so was discontinued as per family. She had significant generalized weakness and requiring currently 2 persons to assist with ambulation. Patient had a brief period of confusion associated with lethargy today for about 30 minutes where patient was not responding to questions and so 911 was called and she was brought to ED for further evaluation. On arrival to ED, mental status is back to baseline per family. She admits to have none expectorant cough and generalized weakness currently. Patient's son also concerned about her mom having difficulty with swallowing.She was discharged on 2 L supplemental oxygen last admission and EMS noted her to be hypoxic in 60s but on arrival to ED she saturating well on room air. Denies any history of chest pain, dyspnea, dizziness, pedal edema, wheezing, hemoptysis, fever, chills, fall, headache, change in vision, slurred speech, facial deformity, vomiting, abdominal pain, diarrhea, hematuria. She reports generalized ache since discharge. Allergies Allergy/AdvReac Type Severity Reaction Status Date / Time No Known Allergies Allergy Verified 07/06/24 18:47 Home Medications Medication Instructions Recorded Confirmed Type aspirin 81 mg tablet,delayed 81 mg PO QAM 06/28/24 07/06/24 History release atorvastatin 40 mg tablet 40 mg PO QAM 06/28/24 07/06/24 History clopidogrel 75 mg tablet 75 mg PO QAM 06/28/24 07/06/24 History ezetimibe 10 mg tablet 10 mg PO DAILY 06/28/24 07/06/24 History insulin aspart U-100 100 unit/mL 0 sliding scale dose continuous 06/28/24 07/06/24 History subcutaneous solution (Novolog subcutaneous infusion CONTINOUS U-100 Insulin aspart) nifedipine 60 mg tablet,extended 60 mg PO QAM 06/28/24 07/06/24 History release 24 hr sodium bicarbonate 650 mg tablet 1,300 mg PO BID 06/28/24 07/06/24 History ferrous sulfate 325 mg (65 mg 325 mg PO QAM #30 tabs 07/03/24 07/06/24 Rx iron) tablet,delayed release folic acid 1 mg tablet 1 mg PO QAM #30 tabs 07/03/24 07/06/24 Rx methimazole 5 mg tablet 5 mg PO BID #60 tabs 07/03/24 07/06/24 Rx metoprolol succinate 100 mg 100 mg PO BID #60 tabs 07/03/24 07/06/24 Rx tablet,extended release 24 hr potassium chloride 40 mEq/15 mL 40 meq (15 mL) PO BID #473 mL 07/03/24 07/06/24 Rx oral liquid amoxicillin 500 mg tablet 500 mg PO BID 10 days #20 tabs 07/05/24 07/06/24 Rx torsemide 100 mg tablet See Rx Instructions .Route .COMPLEX 07/06/24 07/06/24 History torsemide 20 mg tablet See Rx Instructions .Route .COMPLEX 07/06/24 07/06/24 History Past Med/Surg History Problem List (Updated 07/06/24 @ 20:24 by Stan English MD) Ambulatory dysfunction ABEL (acute kidney injury) Acute metabolic encephalopathy Hyperkalemia Elevated troponin (Acute) Acute kidney injury superimposed on chronic kidney disease (Acute) Hypocalcemia (Acute) Acute hypokalemia (Acute) Acute confusion (Acute) Generalized weakness (Acute) Atrial fibrillation with controlled ventricular response Renal failure (ARF), acute on chronic Weakness COVID-19 virus infection (Acute) Social History Smoking Status: Never smoker Do You Dip or Chew Tobacco: No; Hx Alcohol Use: No Hx Substance Use: No Preferred Language: Guyanese Senior Ui Ux Developer Required: No Beliefs That Will Affect Care: None Current Living Situation: Spouse and Family Feels Safe at Home: Yes Assistive Devices: Walker Review of Systems Review of Systems: All systems reviewed & are unremarkable except as noted in Subjective Physical Exam Physical Exam: Physical Exam: Vitals signs as noted above General Appearance:Thin, frail, no apparent distress Head: normocephalic, Atraumatic Eyes: normal inspection, EOMI Neck: supple, Trachea midline Respiratory/Chest: Decreased breath sounds, CTA, No accessory muscle use Cardiovascular: Irregularly irregular, No murmur Abdomen/GI:Soft, Non tender, Bowel sounds present Extremities/Musculoskeletal:normal inspection, no edema Neurologic/Psych:AAO, grossly no focal neurological deficits Skin: normal color, warm Results & Data Results & Data Vital Signs (Past 12 Hours) Vital Signs Temp Pulse Resp BP Pulse Ox O2 Del Method 07/06/24 18:33 99 H 10 L 99 07/06/24 18:30 101/60 07/06/24 18:24 90 14 98 07/06/24 18:21 85 13 98 07/06/24 18:12 98 H 23 99 07/06/24 18:01 106/58 L 07/06/24 17:54 96 H 19 79 L 07/06/24 17:42 96 H 15 97 07/06/24 17:31 106/75 07/06/24 17:30 104 H 19 98 07/06/24 17:24 88 16 99 07/06/24 17:21 117/81 07/06/24 17:20 117/81 07/06/24 17:09 83 14 91 07/06/24 16:51 84 18 98 07/06/24 16:30 94/59 L 07/06/24 16:30 84 16 76 L 07/06/24 16:19 96 H 07/06/24 16:18 98 Room Air 07/06/24 15:54 37.3 C 72 17 79/56 L 98 Room Air Laboratory Results Short CBC 07/06/24 Range/Units 16:01 WBC 9.35 (4.8-10.8) K/ul Hgb 8.0 L (12.0-16.0) g/dl Hct 25.9 L (37.0-47.0) % Plt Count 257 (130-400) K/uL BMP 07/06/24 16:01 Sodium 138 Potassium 6.3 H* Chloride 99 Carbon Dioxide 28 BUN 77 H Creatinine 4.27 H Glucose 220 H Calcium 8.4 L Liver Function 07/06/24 Range/Units 16:01 Total Bilirubin 0.4 (0.2-1.0) mg/dl AST 13 (13-39) U/L ALT 7 (7-52) U/L Alkaline Phosphatase 75 (34-104) U/L Albumin 3.5 (3.4-5.0) gm/dl Diagnostic Findings --CT head:There is no hemorrhage, mass effect, or evidence of acute territorial ischemia by CT criteria. --CXR:Cardiomegaly with no active disease in the chest. ECG Additional Comments: --EKG: Atrial fibrillation, nonspecific ST-T wave changes, QTc 462.
[2024-07-06] MEDS ORDERED: POLYETHYLENE (MIRALAX) 17 GM PACK PO PRN (19:51)
[2024-07-06] MEDS ORDERED: GLUCAGON FOR INJ 1 MG VIAL SQ PRN (19:51)
[2024-07-06] MEDS ORDERED: CARBOHYDRATES FOR HYPOGLYCEMIA PO PRN (19:51)
[2024-07-06] MEDS ORDERED: ONDANSETRON INJ 2 MG/ML 2 ML VIAL IV PRN (19:51)
[2024-07-06] MEDS ORDERED: GLUCOSE 40% GEL 15 GM TUBE PO PRN (19:51)
[2024-07-06] MEDS ORDERED: DEXTROSE 50% 50 ML SYRINGE IV PRN (19:51)
[2024-07-06] MEDS ORDERED: guaiFENesin/DEXTROM SYRUP 100MG/10MG 5ML UDC PO PRN (19:51)
[2024-07-06] MEDS ORDERED: LEVALBUTEROL HCL 0.63 MG/3 ML NEB NEB PRN (19:51)
[2024-07-06] MEDS ORDERED: GLUCOSE 10 TAB/TUBE PO PRN (19:51)
[2024-07-06] MEDS ORDERED: ACETAMINOPHEN 325 MG TAB PO PRN (19:51)
[2024-07-06] MEDS ORDERED: SODIUM ZIRCONIUM CYCLOSILICATE 10 GM PACKET PO SCH (21:00)
[2024-07-06] MEDS: INSULIN ASPART PER UNIT CHARGE SC SCH (21:24)
--- OUTSIDE RECORDS SUMMARY | 2024-07-06 21:50 | External Medical Summary | Summary of Care ---
Author Name Unknown Organization [facility] Address [address] [place] [address] Phone [phone] Care Team Providers Care Furnace Operator [employer] Name Role Phone Cecilia Madden DO Primary Care Provider Reason for Visit * Reason Onset Date Comments Hospital Follow-Up 07/03/2024 Encounter Details Date Type Department Care Team (Late st Contact Info) Description 07/03/2024 Telephone [facility]rology[facility] [address] [place] [address] Chico Vaughn MD [address] [facility] [place] [address] Hospital Follow-Up Allergies No known active allergiesdocumented as of this encounter (statuses as of 07/03/2024) Medications Medication Sig Dispensed Refills Start Date [...] Additional Information Patient not taking.Reported on 03/01/2024 [employer]7 Answering Service Agent Device Use as directed. Active Basaglar KwikPen [...] goal of less than 8.0% ([facility]) USE 3-4 TIMES DAILY FOR LONG [...] as of this encounter (statuses as of 07/03/2024) Active Problems Problem Noted Date Diagnosed Date [...] as of this encounter (statuses as of 07/03/2024) Immunizations Name Administration Dates Next Due Covid-19, [...] Telephone Encounter - Terri Suarez LPN - 07/03/2024 3:19 PM EDT is aware of the need for CXR and labs on 07/06/24 MyG message sent as a reminder per 's request * Telephone Encounter - Terri Suarez LPN - 07/03/2024 1:15 PM EDT Attempted to contact only received VM Mailbox is full * Telephone Encounter - Terri Suarez LPN - 07/03/2024 1:06 PM EDT ----- Message from Chico Vaughn MD sent at 07/03/2024 12:58 PM EDT ----- Regarding: Discharge She is getting discharged today from the hospital. I am seeing her next week on Tuesday. I want her to have chest x-ray two view and renal panel CBC iron screen PTH , UA and PCR prior to appointment. They can do on Tuesday. 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) Essential hypertension CKD (chronic kidney disease) stage 4, GFR 15-29 ml/min (HCC) Expected: 07/04/2024 (Approximate), Expires: 08/02/2025 RENAL FUNCTION PANEL Lab Routine 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) Essential hypertension CKD (chronic kidney disease) stage 4, GFR 15-29 ml/min (HCC) Expected: 07/03/2024 (Approximate), Expires: 07/03/2025 CBC WITH WBC DIFFERENTIAL Lab Routine 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) Essential hypertension CKD (chronic kidney disease) stage 4, GFR 15-29 ml/min (HCC) Expected: 07/03/2024 (Approximate), Expires: 07/03/2025 IRON SCREEN, INCLUDING TIBC Lab Routine 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) Essential hypertension CKD (chronic kidney disease) stage 4, GFR 15-29 ml/min (HCC) Expected: 07/03/2024 (Approximate), Expires: 07/03/2025 PTH Lab Routine 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) Essential hypertension CKD (chronic kidney disease) stage 4, GFR 15-29 ml/min (HCC) Expected: 07/03/2024 (Approximate), Expires: 07/03/2025 URINALYSIS WITH MICROSCOPIC EXAM Lab Routine 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) Essential hypertension CKD (chronic kidney disease) stage 4, GFR 15-29 ml/min (HCC) Expected: 07/03/2024 (Approximate), Expires: 07/03/2025 PROTEIN/ CREATININE RATIO, URINE Lab Routine 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) Essential hypertension CKD (chronic kidney disease) stage 4, GFR 15-29 ml/min (HCC) Expected: 07/03/2024 (Approximate), Expires: 07/03/2025 Health Maintenance Due Date Last Done Comments DTap/Tdap Vaccines (1 - Tdap) 1960 Zoster Vaccines (1 of 2) 1991 DXA Scan 2006 Adult Wellness Visit 2007 Diabetic Foot Exam 10/19/2023 10/19/2022 HbA1c 02/24/2024 08/25/2023, 02/28, 08/18/2022 Depression Screening 04/19/2024 04/19/2023 COVID-19 Vaccine ( season) 2024 08/01/2023, 07/14/2022, 07/14/2022, Additional history exists Influenza Vaccine (FLU shot) (#1) 2024 08/01/2023, [...] as of this encounter Visit Diagnoses Diagnosis 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
--- OUTSIDE RECORDS SUMMARY | 2024-07-06 21:50 | External Medical Summary | Summary of Care ---
Author Name Unknown Organization [facility] Address [address] [place] [address] Phone [phone] Care Team Providers Care Front Desk Monitor Name Role Phone Cecilia Madden DO Primary Care Provider Encounter Details Date Type Department Care Team (Late st Contact Info) Description 07/05/2024 Orders Only PATIENT PORTAL DO NOT DELETE THIS DEPT USED BY [place] [id number] Allergies No known active allergiesdocumented as of this encounter (statuses as of 07/05/2024) Medications Medication Sig Dispensed Refills Start Date [...] Additional Information Patient not taking.Reported on 03/01/2024 [employer] G7 Board Writer Device Use as directed. Active Basaglar KwikPen [...] hemoglobin A1c goal of less than 8.0% ([facility]) USE 3-4 TIMES DAILY FOR LONG [...] as of this encounter (statuses as of 07/05/2024) Active Problems Problem Noted Date Diagnosed Date [...] as of this encounter (statuses as of 07/05/2024) Immunizations Name Administration Dates Next Due Covid-19, [...] 07/09/2024 2:00 PM EDT Office Visit Nephrology, [facility] [address] [facility] [place] [address] Chcio Vaughn MD [address] [facility] [place] [address] 07/10/2024 10:20 AM EDT Office [facility] [address] [facility] [place] [address] Cecilia Madden DO [address] [facility] [place] [address] Health Maintenance Due Date Last Done Comments [...] filedocumented as of this encounter Care Teams Front Desk Monitor Relationship Specialty Start Date End Date Cecilia Madden DO [address] [place] [address] PCP - General Family Medicine 10/08/22 documented as of this encounter
[2024-07-06] MEDS: SODIUM CHLORIDE 0.9% 1,000 ML IV SCH (22:10)
[2024-07-06] MEDS: METOPROLOL SUCC 50MG EXT REL TAB PO SCH (22:20)
[2024-07-06 22:35] LABS: BUN Creatinine Ratio 17.3 (10-20); Calcium 8.6 mg/dl (8.6-10.3); Creatinine Clr Calc Pharmacy 8.2 ml/min; Est GFR (African American) 10.8 ml/min; Est GFR (Non-African American) 9.4 ml/min; Potassium 5.6 mmol/L (3.5-5.1)
[2024-07-06 23:29] LABS: Appearance Urine Clear (Clear); Bacteria Urine Automated None Seen (None Seen); Bilirubin Urine Negative (Negative); Blood Urine Negative (Negative); Cast Urine Automated 0-2 /lpf (0-2); Color Urine Yellow; Epithelial Cell Urine Auto 0-2 /hpf (0-2); Glucose Urine UA Negative (Negative); Ketones Urine Negative (Negative); Leukocyte Esterase Urine 1+ (Negative); Nitrite Urine Negative (Negative); Protein Urine 2+ (Negative); RBC Urine Automated 0-2 /hpf (0-2); Urobilinogen Urine Negative (Negative); WBC Urine Automated >50 /hpf (0-5); pH Urine 6.5 (4.5-7.5)
[2024-07-07] MEDS: methIMAzole 5 MG TABLET PO SCH (00:04)
[2024-07-07] MEDS: AMOXICILLIN 250 MG CAP PO SCH (00:04)
[2024-07-07] MEDS ORDERED: PHARMACY GLYCEMIC MGMT CONSULT PRN (01:13)
[2024-07-07] MEDS ORDERED: INSULIN ASPART 100 UNITS/ML VIAL SC PRN (01:45)
[2024-07-07 06:15] LABS: Basophils # (auto) 0.04 K/uL (0.00-0.20); Basophils % (auto) 0.4 %; Eosinophils # (auto) 0.21 K/uL (0.00-0.50); Eosinophils % (auto) 2.3 %; Hematocrit (blood only) 21.9 % (37.0-47.0); Immature Granulocytes # (auto) 0.39 K/uL (0.01-0.20); Immature Granulocytes % (auto) 4.3 %; Lymphocytes # (auto) 1.61 K/uL (1.20-3.40); Lymphocytes % (auto) 17.8 %; Mean Corpuscular Hemoglobin 29.4 pg (25.0-34.0); Mean Platelet Volume 11.4 fL (9.4-12.4); Monocytes # (auto) 0.78 K/uL (0.11-0.59); Monocytes % (auto) 8.6 %; Neutrophils # (auto) 6.03 K/uL (1.40-6.50); Neutrophils % (auto) 66.6 %; Nucleated RBC # (auto) 0.13 K/uL (0.00-0.12); Nucleated RBC % (auto) 1.4 %; Platelet Count 199 K/uL (130-400); RDW Coefficient of Variation 13.9 % (11.5-14.5); RDW Standard Deviation 45.1 fL (36.4-46.3); Red Blood Count 2.38 M/uL (4.20-5.40); White Blood Count 9.06 K/ul (4.8-10.8)
[2024-07-07 06:29] LABS: Magnesium 1.7 mg/dl (1.7-2.4); Potassium 4.9 mmol/L (3.5-5.1)
[2024-07-07 06:41] LABS: BUN Creatinine Ratio 17.8 (10-20); Creatinine Clr Calc Pharmacy 8.7 ml/min; Est GFR (African American) 11.4 ml/min; Est GFR (Non-African American) 9.9 ml/min
[2024-07-07 07:16] LABS: Acanthocytes 2+; Polychromasia 1+
[2024-07-07] MEDS: FOLIC ACID 1 MG TAB PO SCH (09:06)
[2024-07-07] MEDS: EZETIMIBE 10 MG TAB PO SCH (09:07)
[2024-07-07] MEDS: ASPIRIN 81 MG ECTAB PO SCH (09:07)
[2024-07-07] MEDS: FERROUS SULFATE 325 MG TAB PO SCH (09:07)
[2024-07-07] MEDS: CLOPIDOGREL BISULFATE 75 MG TAB PO SCH (09:07)
[2024-07-07] MEDS: ATORVASTATIN 40 MG TAB PO SCH (09:07)
--- NOTE | 2024-07-07 10:04 | Hospitalist Progress Note ---
Date of Service July 07, 2024 Assessment & Plan (1) Hyperkalemia: (2) Acute metabolic encephalopathy: (3) ABEL (acute kidney injury): (4) Ambulatory dysfunction: Plan Patient is an 83-year-old female with history of CKD stage IV, diabetes mellitus, paroxysmal A-fib, hypertension, meningioma S/P resection in 2015, hypothyroidism, multinodular goiter, cerebral amyloid angiopathy, TIA, diastolic heart failure and other medical problems presenting with history of confusion, lethargy, and generalized weakness and ambulatory dysfunction. Patient was hospitalized 3 days ago and was treated for acute respiratory failure/pulmonary edema, hypothyroidism, COVID-19 infection, UTI, A-fib RVR and ABEL on CKD stage IV and diastolic heart failure. Acute hyperkalemia ABEL on CKD IV Hold potassium supplements Received calcium gluconate, insulin in ED Continue IV fluids Hold home torsemide Started on Lokelma, has since been discontinued Avoid nephrotoxic agents as able Nephrology consulted, appreciate recs Bladder scan as needed Urine analysis with urine Cx pending Monitor for volume status closely given CKD, history of CHF Acute metabolic encephalopathy Likely underlying dementia Cerebral Amyloid Angiopathy Likely multifactorial secondary to recent UTI, COVID-19 infection, renal failure with elevated BUN, Hypoxia Pt also with significant short term memory loss evident on exam and per family Also VERY paranoid and suspicious CT head showed no acute findings Mental status back to baseline while in ED per family Follows with Neurology, per family no offical diagnosis of dementia However pt with significant short term memory loss, paranoia, psych consult placed after discussion with pt's at bedside who is agreeable Continue amoxicillin for recent UTI Will consider repeating blood/urine cultures if develops any fever Urine Cx currently pending Delirium precautions. Frequent reorientation, avoid sedating medications Continue to monitor Ambulatory dysfunction Generalized weakness Secondary to comorbidities PT OT, fall precautions COVID-19 infection Chest x-ray showed no acute disease Currently saturating well on room air Normal procalcitonin Supportive care Chronic mild troponin elevation Likely due to renal failure Doubt ACS Chronic normocytic anemia Denies any bleeding issues Continue iron, folate supplements She declined Venofer in the past Received Procrit 3 days ago Hemoglobin at baseline Monitor Trasfuse as needed, hgb on lower end Atrial fibrillation Rate controlled Continue metoprolol Currently not on anticoagulation due to cerebral amyloid angiopathy per family Diabetes mellitus type 1 Continue insulin Monitor blood glucose levels Hypothyroidism H/O multinodular goiter Follows with endocrinology in [place] TSH better when compared to recent admission Free T4 within normal limits Continue methimazole Hyperlipidemia Continue home medications Chronic diastolic heart failure Currently no signs of volume overload Diuretics on hold due to ABEL Monitor volume status Hypertension Continue metoprolol with holding parameters Continue nifedipine History of TIA Continue aspirin, Plavix, statin Diet: Low K, DMII DVT Px: SCDs for now Dispo: PT/OT for further ecs Admission and Anticipated Discharge Date Admission Date: July 06, 2024 Subjective Pt was seen with at bedside. One son was also on telephone. Pt at times with paranoia, exhibiting short term memory loss. Initially refusing examination, later agreeable. Per family, no official diagnosis of dementia. States pt was seen by neurologist in [facility] and they believe her symptoms are related to amyloid deposition. Review of Systems Review of Systems: All systems reviewed & are unremarkable except as noted in Subjective Physical Exam Physical Exam: General: Alert, paranoid. No acute distress Psych: paranoid, suspicious Neuro: short term memory loss, orientedx2 HEENT: NC/AT CV: RRR Resp: Breath sounds clear bilaterally, no increased effort of breathing. Abdomen: Soft, nontender, nondistended Extremities: No edema in lower extremities bilaterally. Results & Data Results & Data Vital Signs (Past 12 Hours) Vital Signs Temp Pulse Resp BP BP Pulse Ox O2 Del Method 07/07/24 08:11 36.8 C 87 16 132/73 98 Room Air 07/07/24 05:00 37 C 99 H 18 124/99 98 Room Air 07/07/24 02:30 37.0 C 76 17 119/66 97 Room Air 07/07/24 00:30 36.6 C 97 H 16 102/69 97 Room Air 07/07/24 00:29 36.4 C L 114 H 18 85/54 L 95 Room Air
[2024-07-07] MEDS: Continuous Glucose Monitor SCH (11:47)
[2024-07-07] MEDS: INSULIN, Rapid-Acting PUMP SCH (11:48)
[2024-07-07 12:21] LABS: Hematocrit (blood only) 24.2 % (37.0-47.0); Hemoglobin 7.3 g/dl (12.0-16.0)
[2024-07-07] MEDS: SODIUM ZIRCONIUM CYCLOSILICATE 10 GM PACKET PO SCH (12:33)
--- NOTE | 2024-07-07 13:28 | Nephrology Consultation ---
Date of Consultation July 07, 2024 Assessment & Plan (1) Acute kidney injury superimposed on chronic kidney disease: She is mostly advanced CKD stage 4 approaching stage 5. She wants to do home PD ( back and forth between [facility] and [place]). Creat on admission slightly higher than baseline and is already trending down. No need of more iv fluid--stop NS as she is high risk for pulm edema also. No diuretics for now though. expect her to be baseline in next 1-2 days renal dowd. Also has urine retention now--still not sure whether it is intermodal dispatcher thing or temporary with recent UTI and deconditioning. for now continue shaw (2) Hyperkalemia: Iatrogenic from KCL supplement. Now normal. hard to decide kcl need given very poor appetite. for now no KCL and no Diuretics. Once she starts eating better she will need some diuretics. (3) Generalized weakness: primary issue here. She might benefit from some intensive therapy. has severe neuropathy which will make it hard. (4) COVID-19 virus infection: (5) Anemia due to stage 4 chronic kidney disease: hgb down to 7 now. I did give her procrit and venofer last week. will give again tomorrow. after discharge set her up with anemia clinic Plan I had a family discussion with her son In [facility], and patient lasting 45 mins--speaker phone. Plus other 35 mins for a total time taken 80 mins . History of Present Illness Reason for Consultation: Abel on CKD 4 with high K Attending Physician: Barbara Urban MD History of Present Illness 83/F whom I have seen in My clinic. She has CKD stage IV almost stage 5 lately with creat baseline of low to mid 3's sec to Long standing diabetes mellitus, paroxysmal A-fib, hypertension, meningioma S/P resection in 2014, hypothyroidism, multinodular goiter, cerebral amyloid angiopathy, TIA, diastolic heart failure and other medical problems presented with gen weakness, unable to take care at home and also confusion and ambulatory dysfunction. and son could not safely take care of her because of weakness. Patient was hospitalized 3 days ago and was treated for acute respiratory failure/pulmonary edema, hypothyroidism, COVID-19 infection, UTI, A-fib RVR and ABEL on CKD stage IV and diastolic heart failure. Since being discharged patient's appetite has been significantly decreased and she was started on mirtazapine which altered her mood and so was discontinued as per family. She was discharged on 2 L supplemental oxygen last admission and EMS noted her to be hypoxic in 60s but on arrival to ED she saturating well on room air. Also discharged on torsemide 60 daily ( CXR showed Pulm edema) and Kcl supplement. On admission slightly higher creat at 4.3 but trending down now and k was slightly high 5.6 also but now normal. diuretics held, kcl stopped. Given NS and now labs better. Also noted to have urine retention and now has shaw. ROS--see HPI 12 systems reviewed and negative Physical Exam Physical Exam: Vitals signs as noted above General Appearance:Thin, frail, no apparent distress Head: normocephalic, Atraumatic Eyes: normal inspection, EOMI Neck: supple, Trachea midline Respiratory/Chest: Decreased breath sounds, No accessory muscle use Cardiovascular: Irregularly irregular, No murmur Abdomen/GI:Soft, Non tender, Bowel sounds present Extremities/Musculoskeletal:normal inspection, no edema Neurologic/Psych:AAO, grossly no focal neurological deficits Skin: normal color, warm Allergies Allergy/AdvReac Type Severity Reaction Status Date / Time No Known Allergies Allergy Verified 07/06/24 18:47 Home Medications Medication Instructions Recorded Confirmed Type aspirin 81 mg tablet,delayed 81 mg PO QAM 06/28/24 07/06/24 History release atorvastatin 40 mg tablet 40 mg PO QAM 06/28/24 07/06/24 History clopidogrel 75 mg tablet 75 mg PO QAM 06/28/24 07/06/24 History ezetimibe 10 mg tablet 10 mg PO DAILY 06/28/24 07/06/24 History insulin aspart U-100 100 unit/mL 0 sliding scale dose continuous 06/28/24 07/06/24 History subcutaneous solution (Novolog subcutaneous infusion CONTINOUS U-100 Insulin aspart) nifedipine 60 mg tablet,extended 60 mg PO QAM 06/28/24 07/06/24 History release 24 hr sodium bicarbonate 650 mg tablet 1,300 mg PO BID 06/28/24 07/06/24 History ferrous sulfate 325 mg (65 mg 325 mg PO QAM #30 tabs 07/03/24 07/06/24 Rx iron) tablet,delayed release folic acid 1 mg tablet 1 mg PO QAM #30 tabs 07/03/24 07/06/24 Rx methimazole 5 mg tablet 5 mg PO BID #60 tabs 07/03/24 07/06/24 Rx metoprolol succinate 100 mg 100 mg PO BID #60 tabs 07/03/24 07/06/24 Rx tablet,extended release 24 hr potassium chloride 40 mEq/15 mL 40 meq (15 mL) PO BID #473 mL 07/03/24 07/06/24 Rx oral liquid amoxicillin 500 mg tablet 500 mg PO BID 10 days #20 tabs 07/05/24 07/06/24 Rx torsemide 100 mg tablet See Rx Instructions .Route .COMPLEX 07/06/24 07/06/24 History torsemide 20 mg tablet See Rx Instructions .Route .COMPLEX 07/06/24 07/06/24 History Patient History Social History Smoking Status: Never smoker Second Hand Exposure: No; Do You Dip or Chew Tobacco: No; Tobacco Cessation Education Requested by Patient: No Hx Alcohol Use: No Hx Substance Use: No Preferred Language: Tunisian Communication Ability: Effective Director Of Outreach Required: No Beliefs That Will Affect Care: None Current Living Situation: Spouse and Family Other Information That Helps Us Care for You: No Feels Safe at Home: Yes Safety Concerns: Feels Safe At This Time Assistive Devices: Glasses and Walker Results & Data Vital Signs (Past 12 Hours) Vital Signs Temp Pulse Resp BP BP Pulse Ox O2 Del Method 07/07/24 08:11 36.8 C 87 16 132/73 98 Room Air 07/07/24 05:00 37 C 99 H 18 124/99 98 Room Air 07/07/24 02:30 37.0 C 76 17 119/66 97 Room Air
[2024-07-07] MEDS: IRON SUCROSE 300 MG in SODIUM CHLORIDE 0.9% 250 ML IV ONE (14:37)
[2024-07-08 05:41] LABS: Basophils # (auto) 0.04 K/uL (0.00-0.20); Basophils % (auto) 0.4 %; Eosinophils # (auto) 0.22 K/uL (0.00-0.50); Eosinophils % (auto) 2.3 %; Hematocrit (blood only) 23.4 % (37.0-47.0); Hemoglobin 7.1 g/dl (12.0-16.0); Immature Granulocytes # (auto) 0.27 K/uL (0.01-0.20); Immature Granulocytes % (auto) 2.8 %; Lymphocytes # (auto) 1.67 K/uL (1.20-3.40); Lymphocytes % (auto) 17.6 %; Mean Corpuscular Hemoglobin 28.6 pg (25.0-34.0); Mean Corpuscular Hgb Conc 30.3 g/dL (32.0-36.0); Mean Corpuscular Volume 94.4 fL (80.0-100.0); Mean Platelet Volume 11.1 fL (9.4-12.4); Monocytes # (auto) 0.84 K/uL (0.11-0.59); Monocytes % (auto) 8.9 %; Neutrophils # (auto) 6.45 K/uL (1.40-6.50); Nucleated RBC # (auto) 0.18 K/uL (0.00-0.12); Nucleated RBC % (auto) 1.9 %; Platelet Count 219 K/uL (130-400); RDW Coefficient of Variation 14.3 % (11.5-14.5); RDW Standard Deviation 46.8 fL (36.4-46.3); Red Blood Count 2.48 M/uL (4.20-5.40); White Blood Count 9.49 K/ul (4.8-10.8)
[2024-07-08 06:00] LABS: Albumin Globulin Ratio 1.1 (0.9-2); BUN Creatinine Ratio 17.7 (10-20); Bilirubin,Total 0.3 mg/dl (0.2-1.0); Creatinine Clr Calc Pharmacy 9.4 ml/min; Est GFR (African American) 12.6 ml/min; Est GFR (Non-African American) 10.9 ml/min; Globulin 2.7 gm/dl (2.5-4.0); Magnesium 1.6 mg/dl (1.7-2.4); Potassium 4.1 mmol/L (3.5-5.1); Total Protein 5.7 gm/dl (6.0-8.3)
[2024-07-08 06:01] LABS: Acanthocytes 1+; Polychromasia 1+
[2024-07-08] MEDS: NIFEdipine EXTENDED REL 30 MG TABCR PO SCH (08:50)
[2024-07-08] MEDS: EPOETIN ALFA 20,000 UNITS/ML VIAL SQ ONE (08:58)
[2024-07-08] MEDS: MAGNESIUM OXIDE 400 MG TAB PO SCH (10:20)
--- NOTE | 2024-07-08 13:00 | Hospitalist Progress Note ---
Date of Service July 08, 2024 Assessment & Plan (1) Hyperkalemia: (2) Acute metabolic encephalopathy: (3) ABEL (acute kidney injury): (4) Ambulatory dysfunction: Plan Patient is an 83-year-old female with history of CKD stage IV, diabetes mellitus, paroxysmal A-fib, hypertension, meningioma S/P resection in 2015, hypothyroidism, multinodular goiter, cerebral amyloid angiopathy, TIA, diastolic heart failure and other medical problems presenting with history of confusion, lethargy, and generalized weakness and ambulatory dysfunction. Patient was hospitalized 3 days ago and was treated for acute respiratory failure/pulmonary edema, hypothyroidism, COVID-19 infection, UTI, A-fib RVR and ABEL on CKD stage IV and diastolic heart failure. Acute hyperkalemia ABEL on CKD IV Hold potassium supplements Received calcium gluconate, insulin in ED Continue IV fluids Hold home torsemide Started on Lokelma, has since been discontinued Avoid nephrotoxic agents as able Nephrology consulted, appreciate recs Bladder scan as needed Urine analysis with urine Cx pending Monitor for volume status closely given CKD, history of CHF Acute metabolic encephalopathy Likely underlying dementia Cerebral Amyloid Angiopathy Likely multifactorial secondary to recent UTI, COVID-19 infection, renal failure with elevated BUN, Hypoxia Pt also with significant short term memory loss evident on exam and per family Also very paranoid and suspicious on 07/08 CT head showed no acute findings Mental status back to baseline while in ED per family Follows with Neurology, per family no offical diagnosis of dementia However pt with significant short term memory loss, paranoia, psych consult placed after discussion with pt's at bedside who is agreeable. Appreciate recs Continue amoxicillin for recent UTI Will consider repeating blood/urine cultures if develops any fever Urine Cx currently pending Delirium precautions. Frequent reorientation, avoid sedating medications Continue to monitor Ambulatory dysfunction Generalized weakness Secondary to comorbidities PT OT, fall precautions COVID-19 infection Chest x-ray showed no acute disease Currently saturating well on room air Normal procalcitonin Supportive care Chronic mild troponin elevation Likely due to renal failure Doubt ACS Chronic normocytic anemia Denies any bleeding issues Continue iron, folate supplements She declined Venofer in the past Received Procrit 3 days ago Hemoglobin at baseline Monitor Transfuse as needed, hgb on lower end Atrial fibrillation Rate controlled Continue metoprolol Currently not on anticoagulation due to cerebral amyloid angiopathy per family Diabetes mellitus type 1 Continue insulin Monitor blood glucose levels Hypothyroidism H/O multinodular goiter Follows with endocrinology in [place] TSH better when compared to recent admission Free T4 within normal limits Continue methimazole Hyperlipidemia Continue home medications Chronic diastolic heart failure Currently no signs of volume overload Diuretics on hold due to ABEL Monitor volume status Hypertension Continue metoprolol with holding parameters Continue nifedipine History of TIA Continue aspirin, Plavix, statin Diet: Low K, DMII DVT Px: SCDs for now Dispo: PT/OT for further ecs Admission and Anticipated Discharge Date Admission Date: July 06, 2024 Subjective Pt was seen with at bedside. Pt agreeable to exam today, denied acute concerns. Review of Systems Review of Systems: All systems reviewed & are unremarkable except as noted in Subjective Physical Exam Physical Exam: General: Alert. No acute distress Neuro: short term memory loss, orientedx2 HEENT: NC/AT CV: RRR Resp: Breath sounds clear bilaterally, no increased effort of breathing. Abdomen: Soft, nontender, nondistended Extremities: No edema in lower extremities bilaterally. Results & Data Results & Data Vital Signs (Past 12 Hours) Vital Signs Temp Pulse Resp BP Pulse Ox O2 Del Method 07/08/24 08:00 36.7 C 82 17 129/76 97 Room Air 07/08/24 03:01 36.8 C 73 18 134/78 98 Room Air
--- NOTE | 2024-07-08 14:25 | Psychiatric Consultation ---
Date of Consultation July 08, 2024 Impression / Recommendations (1) Delirium due to multiple etiologies: (2) Cognitive impairment: (3) Memory changes: (4) COVID-19 virus infection: Plan Patient is an 83-year-old female history of CKD stage IV, diabetes mellitus, paroxysmal A-fib, hypertension, meningioma S/P resection in 2014, hypothyroidism, multinodular goiter, cerebral amyloid angiopathy, TIA, diastolic heart failure and other medical problems presenting with history of confusion, lethargy, and generalized weakness and ambulatory dysfunction who presents with concerns for AMS in the setting of covid-19 infection, ABEL, UTI, and other factors. Psychiatry consult for paranoia, memory changes. Patient lives with next door to son. Son presented pt long-standing distrust with medical care prior to onset of cognition or memory issues. They got testing from a neurologist in the past indicating mild cognitive impairment or possible vascular dementia. It appears recent decline in behavior, appetite was due to covid infection and family feels pt is getting back to her baseline. They did not present any acute behavioral, safety, or agitation issues at home prior to infection. Fair sleep and appetite currently. No h/o mood instability, anxiety, crying spells, insomnia, psychosis at baseline. Pt can take care of basic ADLs. They are getting a time cycle operator aide to assist at home. They tried mirtazapine for appetite stimulation in the past but pt had a paradoxical reaction (likely d/t to antihistamine effect). At this time do no have any recommendations and family was counselled on pt higher risk for delirium with injury or infection given limited cognitive reserve. Would benefit from re- evaluation for dementia after acute medical issues resolved. Pt has outpatient f/u with neurologist in July. Overall, I spent a total of 80 minutes with this case including review of chart records, nursing report, review of lab work, direct evaluation of the patient at bedside, counseling the patient, discussion of the patient with the hospitalist provider, discussion with the psychiatric liaison during clinical rounds, and documentation in the electronic health record. Psych History Identifying Data Patient is an 83-year-old female with history of CKD stage IV, diabetes mellitus, paroxysmal A-fib, hypertension, meningioma S/P resection in 2014, hypothyroidism, multinodular goiter, cerebral amyloid angiopathy, TIA, diastolic heart failure and other medical problems presenting with history of confusion, lethargy, and generalized weakness and ambulatory dysfunction. Patient was hospitalized 3 days ago and was treated for acute respiratory failure/pulmonary edema, hypothyroidism, COVID-19 infection, UTI, A-fib RVR and ABEL on CKD stage IV and diastolic heart failure. Psychiatry was consulted for concerns of recent paranoia, memory concerns. Chief Complaint AMS History of Present Illness Collateral obtained from patient's son: Patient and live next door to son. Patient has had a distress to medical care her whole life. Has presented short-term memory impairments for years (forgets what she said 5 minutes later). Recently had poor appetite after COVID infection however was not a problem before. Son plans to get a full-time aide to assist with patient's care. Patient recently got COVID-19 infection from grandson. Son denies patient having any paranoia at baseline. Patient was tried on mirtazapine for appetite stimulation in the past and it made her more anxious. Patient was seen with at bedside. reports patient saw a neurologist 2 years ago for memory loss and was diagnosed with mild cognitive impairment. Neuropsychological testing revealed concern for vascular dementia. Patient has no history of strokes. There is concern for hemorrhage in her brain and she was transitioned off Eliquis with plan to be on daily aspirin. He denies any behavioral problems with her at home and she is pleasant with family. She can take care of her basic activities of daily living. There is a follow- up with an outpatient neurologist in July. Her appetite was stable until she got COVID and he believes that she is getting back to baseline and has improved appetite now. The patient reports feeling "great". Reports fair appetite and sleep. Denies pain. Denies feeling anxious. She is alert and oriented to herself, location, year, not month "May", last president "Ney", son "Kam". No concerns reported. Allergies Allergy/AdvReac Type Severity Reaction Status Date / Time No Known Allergies Allergy Verified 07/06/24 18:47 Home Medications Medication Instructions Recorded Confirmed Type aspirin 81 mg tablet,delayed 81 mg PO QAM 06/28/24 07/06/24 History release atorvastatin 40 mg tablet 40 mg PO QAM 06/28/24 07/06/24 History clopidogrel 75 mg tablet 75 mg PO QAM 06/28/24 07/06/24 History ezetimibe 10 mg tablet 10 mg PO DAILY 06/28/24 07/06/24 History insulin aspart U-100 100 unit/mL 0 sliding scale dose continuous 06/28/24 07/06/24 History subcutaneous solution (Novolog subcutaneous infusion CONTINOUS U-100 Insulin aspart) nifedipine 60 mg tablet,extended 60 mg PO QAM 06/28/24 07/06/24 History release 24 hr sodium bicarbonate 650 mg tablet 1,300 mg PO BID 06/28/24 07/06/24 History ferrous sulfate 325 mg (65 mg 325 mg PO QAM #30 tabs 07/03/24 07/06/24 Rx iron) tablet,delayed release folic acid 1 mg tablet 1 mg PO QAM #30 tabs 07/03/24 07/06/24 Rx methimazole 5 mg tablet 5 mg PO BID #60 tabs 07/03/24 07/06/24 Rx metoprolol succinate 100 mg 100 mg PO BID #60 tabs 07/03/24 07/06/24 Rx tablet,extended release 24 hr potassium chloride 40 mEq/15 mL 40 meq (15 mL) PO BID #473 mL 07/03/24 07/06/24 Rx oral liquid amoxicillin 500 mg tablet 500 mg PO BID 10 days #20 tabs 07/05/24 07/06/24 Rx torsemide 100 mg tablet See Rx Instructions .Route .COMPLEX 07/06/24 07/06/24 History torsemide 20 mg tablet See Rx Instructions .Route .COMPLEX 07/06/24 07/06/24 History Patient History Social History Smoking Status: Never smoker Second Hand Exposure: No; Do You Dip or Chew Tobacco: No; Tobacco Cessation Education Requested by Patient: No Hx Alcohol Use: No Hx Substance Use: No Preferred Language: Stateless Communication Ability: Effective Ammonium Nitrate Neutralizer Required: No Beliefs That Will Affect Care: None Current Living Situation: Spouse and Family Other Information That Helps Us Care for You: No Feels Safe at Home: Yes Safety Concerns: Feels Safe At This Time Assistive Devices: Glasses and Walker Physical Exam Mental Examination: Appearance: Disheveled Eye Contact: Maintains Eye Contact Motor Behavior: Unremarkable Speech: Loud Mood: Euthymic Affect: Appropriate Thought Process: Intact Thought Content: Poverty of Content Hallucinations: None Insight: Poor (to limited) Judgement: Fair Vital Signs (Past 24 Hours): Last Vital Signs Temp 36.7 C 07/08/24 08:00 Pulse 82 07/08/24 08:00 Resp 17 07/08/24 08:00 BP 129/76 07/08/24 08:00 Pulse Ox 97 07/08/24 08:00 O2 Del Method Room Air 07/08/24 08:00 Results & Data (PSY) Medications Administered Amoxicillin (Amoxicillin 250 Mg Cap) 250 mg PO BID [facility] Stop: 07/11/24 20:59 Last Admin: 07/08/24 08:47 Dose: 250 mg Documented By: Admin: 07/07/24 20:03 Dose: 250 mg Documented By: Admin: 07/07/24 09:06 Dose: 250 mg Documented By: Admin: 07/07/24 00:04 Dose: 250 mg Documented By: OSMAR Aspirin (Aspirin 81 Mg Ectab) 81 mg PO [facility] Stop: 08/06/24 08:59 Last Admin: 07/08/24 08:47 Dose: 81 mg Documented By: Admin: 07/07/24 09:07 Dose: 81 mg Documented By: HANNAH Atorvastatin Calcium (Atorvastatin 40 Mg Tab) 40 mg PO [facility] Stop: 08/06/24 08:59 Last Admin: 07/08/24 08:50 Dose: 40 mg Documented By: Admin: 07/07/24 09:07 Dose: 40 mg Documented By: HANNAH Clopidogrel Bisulfate (Clopidogrel Bisulfate 75 Mg Tab) 75 mg PO [facility] Stop: 08/06/24 08:59 Last Admin: 07/08/24 08:49 Dose: 75 mg Documented By: Admin: 07/07/24 09:07 Dose: 75 mg Documented By: HANNAH Ezetimibe (Ezetimibe 10 Mg Tab) 10 mg PO DAILY [facility] Stop: 08/06/24 08:59 Last Admin: 07/08/24 08:49 Dose: 10 mg Documented By: Admin: 07/07/24 09:07 Dose: 10 mg Documented By: HANNAH Ferrous Sulfate (Ferrous Sulfate 325 Mg Tab) [facility] Stop: 08/06/24 08:59 Last Admin: 07/08/24 08:49 Dose: 325 mg Documented By: Admin: 07/07/24 09:07 Dose: 325 mg Documented By: HANNAH Folic Acid (Folic Acid 1 Mg Tab) 1 mg PO QAM [facility] Stop: 08/06/24 08:59 Last Admin: 07/08/24 08:48 Dose: 1 mg Documented By: Admin: 07/07/24 09:06 Dose: 1 mg Documented By: HANNAH Insulin Aspart (Insulin Aspart Per Unit Charge) 0 units SC [facility] Stop: 08/05/24 20:59 Last Admin: 07/08/24 12:42 Dose: Not Given Documented By: Admin: 07/08/24 08:46 Dose: Not Given Documented By: Admin: 07/07/24 21:30 Dose: Not Given Documented By: Admin: 07/07/24 17:40 Dose: Not Given Documented By: Admin: 07/07/24 12:34 Dose: Not Given Documented By: Admin: 07/07/24 11:47 Dose: Not Given Documented By: Admin: 07/06/24 21:24 Dose: Not Given Documented By: OSMAR Insulin Aspart (Insulin, Rapid-Acting Pump) 1 each N/A [facility]; Protocol Stop: 08/06/24 07:29 Last Admin: 07/08/24 12:41 Dose: 1 each Documented By: MASON Co-signed By: Admin: 07/08/24 08:46 Dose: 1 each Documented By: MASON Co-signed By: Admin: 07/07/24 21:30 Dose: 1 each Documented By: OSMAR Co-signed By: JESUS Admin: 07/07/24 17:42 Dose: 1 each Documented By: HANNAH Co-signed By: AKUA Admin: 07/07/24 12:34 Dose: Not Given Documented By: Admin: 07/07/24 11:48 Dose: Not Given Documented By: HANNAH Magnesium Oxide (Magnesium Oxide 400 Mg Tab) 400 mg PO BID [facility] Stop: 08/07/24 09:09 Last Admin: 07/08/24 10:20 Dose: 400 mg Documented By: MASON Methimazole (Methimazole 5 Mg Tablet) 5 mg PO BID [facility] Stop: 08/05/24 20:59 Last Admin: 07/08/24 08:48 Dose: 5 mg Documented By: Admin: 07/07/24 20:03 Dose: 5 mg Documented By: Admin: 07/07/24 09:06 Dose: 5 mg Documented By: Admin: 07/07/24 00:04 Dose: 5 mg Documented By: OSMAR Metoprolol Succinate (Metoprolol Succ 50mg Ext Rel Tab) 100 mg PO BID [facility] Stop: 08/05/24 20:59 Last Admin: 07/08/24 08:48 Dose: 100 mg Documented By: Admin: 07/07/24 20:04 Dose: 100 mg Documented By: Admin: 07/07/24 09:07 Dose: 100 mg Documented By: Admin: 07/06/24 22:20 Dose: Not Given Documented By: OSMAR Miscellaneous (Continuous Glucose Monitor) 1 each N/A [facility] Stop: 08/06/24 07:29 Last Admin: 07/08/24 12:41 Dose: 1 each Documented By: Admin: 07/08/24 08:45 Dose: 1 each Documented By: Admin: 07/07/24 21:29 Dose: 1 each Documented By: Admin: 07/07/24 17:40 Dose: 1 each Documented By: Admin: 07/07/24 12:34 Dose: Not Given Documented By: Admin: 07/07/24 11:47 Dose: Not Given Documented By: HANNAH Nifedipine (Nifedipine Extended Rel 30 Mg Tabcr) 60 mg PO QAM [facility] Stop: 08/07/24 08:59 Last Admin: 07/08/24 08:50 Dose: 60 mg Documented By: [facility] [place] [address] IN/OBS CONSULT LVL 5,80M Patient Type New History Comprehensive Exam Comprehensive Medical Decision Making High Complexity Diagnoses Delirium due to multiple etiologies F05 Cognitive impairment R41.89 Memory changes R41.3 COVID-19 virus infection U07.1
--- NOTE | 2024-07-08 22:31 | Electrocardiogram Report ---
Test Reason : Blood Pressure : */* mmHG Vent. Rate : 83 BPM Atrial Rate : * BPM P-R Int : * ms QRS Dur : 68 ms QT Int : 394 ms P-R-T Axes : * -1 5 degrees QTcB Int : 462 ms Atrial fibrillation Septal infarct , age undetermined Nonspecific T wave abnormality Abnormal ECG When compared with ECG of 28-Jun-2024 18:11, Septal infarct is now Present Confirmed by Awais Anthony ([id number]) on 07/08/2024 10:30:52 PM Referred By: REFERRED SELF Confirmed By: Awais Anthony
[2024-07-09] MEDS: MAGNESIUM SULFATE / D5W 1 GM/100 ML BAG IV SCH (11:07)
[2024-07-09] MEDS: CALCIUM 600MG + VIT D 400 IU TAB PO SCH (11:09)
--- NOTE | 2024-07-09 11:15 | Nephrology Progress Note ---
Date of Service July 09, 2024 Assessment & Plan (1) Acute kidney injury superimposed on chronic kidney disease: Plan: She is mostly advanced CKD stage 4 approaching stage 5; baseline labile but mid 3's based on [employer] review. She wants to do home PD ( back and forth between [facility] and [place] > plans to spend 6-8 mos in [facility] starting next month per ; has seen a ring spinner there ? how recently). Creat on admission slightly higher than baseline and is already trending down. No diuretics for now though. Recent concern for urine retention--still not sure whether it is mcc thing or temporary with recent UTI and deconditioning. if for d/c, recommend voiding trial prior to d/c It is not optimal to be on verge of starting dialysis especially home dialysis and [place] living [place] 2 different states >> hopefully her renal function will recover enough to get to [facility] and be followed closely there and start dialysis when/as needed; otherwise if starting imminently, may need to start/do home training here and then transfer once stabilized/well established Nephrology d/c recommendations (if she leaves today): -voiding trial -hospital d/c appt w/ Dr Vaughn with in one week of d/c with phos, albumin, bmp, cbc/diff, transferrin sat, ferritin to be drawn up to 72 hours before that visit -hold torsemide, sodium bicarb, potassium supplements at d/c though she may need to resume these in short order -her hemoglobin is quite low > not sure that she will be able to start with our CKD Anemia clinic before she leaves the state but Dr Vaughn plans to attempt -would also recommend ESRD Options class with family/caregiver as OP and will work w/ Dr Vaughn to arrange (2) Hyperkalemia: Plan: Iatrogenic from KCL supplement prior to admission while on diuretics. has had very poor appetite, though today ate better for first time. >for now no KCL and no Diuretics, though likely to need diuretics if her appetite remains improved (3) Generalized weakness: Plan: primary issue here. She might benefit from some intensive therapy. has severe neuropathy which will make it hard. defer to primary service to coordinate (4) COVID-19 virus infection: Plan: resolved; improving (5) Anemia due to stage 4 chronic kidney disease: Plan: hgb down to 7 now. I did give her procrit and venofer last week. will give again tomorrow. after discharge set her up with anemia clinic Plan I had a family discussion with her son in [facility], and patient lasting 20 mins; also spent 15 minutes coordinating care w/ Dr Urban and another 10-15 minutes on chart review/documentation. Total time 45 mins . Admission and Anticipated Discharge Date Admission Date: July 06, 2024 Subjective pt seen and evaluated on late PM rounds. at bedside; son Isaac on phone for last part of visit. feeling much better; eating well today. denies edema, N, sob. ROS limited by pt cognitive function. Review of Systems 2 Review of Systems: All systems reviewed & are unremarkable except as noted in Subjective Physical Exam 2 Constitutional: well developed, well nourished, + thin, + frail appearing (lying in bed on RA, small framed) and cooperative; no acute distress Eyes: EOM intact bilaterally ENMT: Ears: no external ear abnormality Nose: no external nose abnormality Mouth: + dry oral mucous membranes Neck: no nuchal rigidity Respiratory: normal respiratory effort Auscultation: + diminished lung sounds Cardiovascular: RRR, no murmur, no edema legs examined visually > pt declines palpation d/t hyperesthesias/neuropathy Gastrointestinal (Abdomen): Inspection/Auscultation: normal bowel sounds P ercussion/Palpation: abdomen soft; abdomen nontender Musculoskeletal: Extremities: strength 5/5 throughout Skin: no rashes, warm and dry Neurologic: kelly, fluent speech, no tremor Psychiatric: Orientation: alert and oriented to person Results & Data Vital Signs (Past 12 Hours) Vital Signs Temp Pulse Resp BP Pulse Ox O2 Del Method 07/09/24 08:06 36.3 C L 78 15 101/67 98 Room Air 07/09/24 03:00 36.5 C 82 16 118/72 98 Room Air 07/08/24 23:35 36.5 C 78 16 112/71 98 Room Air Laboratory Results 07/08/24 04:56 07/08/24 04:56
[2024-07-09 11:57] LABS: Basophils # (auto) 0.04 K/uL (0.00-0.20); Basophils % (auto) 0.3 %; Eosinophils # (auto) 0.25 K/uL (0.00-0.50); Eosinophils % (auto) 1.9 %; Hematocrit (blood only) 23.2 % (37.0-47.0); Immature Granulocytes # (auto) 0.56 K/uL (0.01-0.20); Immature Granulocytes % (auto) 4.2 %; Lymphocytes # (auto) 1.85 K/uL (1.20-3.40); Lymphocytes % (auto) 13.8 %; Mean Corpuscular Hemoglobin 28.8 pg (25.0-34.0); Mean Corpuscular Hgb Conc 30.2 g/dL (32.0-36.0); Mean Corpuscular Volume 95.5 fL (80.0-100.0); Mean Platelet Volume 11.2 fL (9.4-12.4); Monocytes # (auto) 0.81 K/uL (0.11-0.59); Neutrophils # (auto) 9.88 K/uL (1.40-6.50); Neutrophils % (auto) 73.8 %; Nucleated RBC # (auto) 0.15 K/uL (0.00-0.12); Nucleated RBC % (auto) 1.1 %; Platelet Count 217 K/uL (130-400); RDW Coefficient of Variation 14.5 % (11.5-14.5); RDW Standard Deviation 46.5 fL (36.4-46.3); Red Blood Count 2.43 M/uL (4.20-5.40); White Blood Count 13.39 K/ul (4.8-10.8)
[2024-07-09 12:14] LABS: Albumin Globulin Ratio 1.1 (0.9-2); BUN Creatinine Ratio 23.8 (10-20); Bilirubin,Total 0.3 mg/dl (0.2-1.0); Calcium 7.4 mg/dl (8.6-10.3); Creatinine Clr Calc Pharmacy 10.2 ml/min; Est GFR (African American) 13.6 ml/min; Est GFR (Non-African American) 11.8 ml/min; Globulin 2.7 gm/dl (2.5-4.0); Magnesium 1.7 mg/dl (1.7-2.4); Phosphorus 3.9 mg/dl (2.5-4.9); Potassium 4.8 mmol/L (3.5-5.1); Total Protein 5.7 gm/dl (6.0-8.3)
[2024-07-09 12:16] LABS: Acanthocytes 1+; Polychromasia 1+
--- NOTE | 2024-07-09 15:57 | Discharge Summary ---
Discharge Summary Date of Service July 09, 2024 Principal Dx & Hospital Course #1 = Principal Diagnosis (1) Hyperkalemia: (2) Acute metabolic encephalopathy: (3) ABEL (acute kidney injury): (4) Ambulatory dysfunction: Plan Patient is an 83-year-old female with history of CKD stage IV, diabetes mellitus, paroxysmal A-fib, hypertension, meningioma S/P resection in 2014, hypothyroidism, multinodular goiter, cerebral amyloid angiopathy, TIA, diastolic heart failure and other medical problems presenting with history of confusion, lethargy, and generalized weakness and ambulatory dysfunction. Patient was hospitalized 3 days ago and was treated for acute respiratory failure/pulmonary edema, hypothyroidism, COVID-19 infection, UTI, A-fib RVR and ABEL on CKD stage IV and diastolic heart failure. Acute hyperkalemia ABEL on CKD IV Hold potassium supplements Received calcium gluconate, insulin in ED Continue IV fluids Hold home torsemide Started on Lokelma, has since been discontinued Avoid nephrotoxic agents as able Nephrology consulted, appreciate recs Bladder scan as needed Urine analysis with urine Cx pending Monitor for volume status closely given CKD, history of CHF Acute metabolic encephalopathy Likely underlying dementia Cerebral Amyloid Angiopathy Likely multifactorial secondary to recent UTI, COVID-19 infection, renal failure with elevated BUN, Hypoxia Pt also with significant short term memory loss evident on exam and per family Also very paranoid and suspicious on 07/08 CT head showed no acute findings Mental status back to baseline while in ED per family Follows with Neurology, per family no offical diagnosis of dementia However pt with significant short term memory loss, paranoia, psych consult placed after discussion with pt's at bedside who is agreeable. Appreciate recs Continue amoxicillin for recent UTI Will consider repeating blood/urine cultures if develops any fever Urine Cx currently pending Delirium precautions. Frequent reorientation, avoid sedating medications Continue to monitor Ambulatory dysfunction Generalized weakness Secondary to comorbidities PT OT, fall precautions COVID-19 infection Chest x-ray showed no acute disease Currently saturating well on room air Normal procalcitonin Supportive care Chronic mild troponin elevation Likely due to renal failure Doubt ACS Chronic normocytic anemia Denies any bleeding issues Continue iron, folate supplements She declined Venofer in the past Received Procrit 3 days ago Hemoglobin at baseline Monitor Transfuse as needed, hgb on lower end Atrial fibrillation Rate controlled Continue metoprolol Currently not on anticoagulation due to cerebral amyloid angiopathy per family Diabetes mellitus type 1 Continue insulin Monitor blood glucose levels Hypothyroidism H/O multinodular goiter Follows with endocrinology in [place] TSH better when compared to recent admission Free T4 within normal limits Continue methimazole Hyperlipidemia Continue home medications Chronic diastolic heart failure Currently no signs of volume overload Diuretics on hold due to ABEL Monitor volume status Hypertension Continue metoprolol with holding parameters Continue nifedipine History of TIA Continue aspirin, Plavix, statin Diet: Low K, DMII DVT Px: SCDs for now Dispo: PT/OT for further ecs Admission HPI Per Admitting Provider Patient is an 83-year-old female with history of CKD stage IV, diabetes me llitus, paroxysmal A-fib, hypertension, meningioma S/P resection in 2014, hypothyroidism, multinodular goiter, cerebral amyloid angiopathy, TIA, diastolic heart failure and other medical problems presents with history of confusion, lethargy, and generalized weakness and ambulatory dysfunction. Patient was hospitalized 3 days ago and was treated for acute respiratory failure/pulmonary edema, hypothyroidism, COVID-19 infection, UTI, A-fib RVR and ABEL on CKD stage IV and diastolic heart failure. Most of the history is obtained from patient's son and ER staff and old records. Since being discharged patient's appetite has been significantly decreased and she was started on mirtazapine which altered her mood and so was discontinued as per family. She had significant generalized weakness and requiring currently 2 persons to assist with ambulation. Patient had a brief period of confusion associated with lethargy today for about 30 minutes where patient was not responding to questions and so 911 was called and she was brought to ED for further evaluation. On arrival to ED, mental status is back to baseline per family. She admits to have none expectorant cough and generalized weakness currently. Patient's son also concerned about her mom having difficulty with swallowing.She was discharged on 2 L supplemental oxygen last admission and EMS noted her to be hypoxic in 60s but on arrival to ED she saturating well on room air. Denies any history of chest pain, dyspnea, dizziness, pedal edema, wheezing, hemoptysis, fever, chills, fall, headache, change in vision, slurred speech, facial deformity, vomiting, abdominal pain, diarrhea, hematuria. She reports generalized ache since discharge. Discharge Exam General: Alert. No acute distress Neuro: short term memory loss, orientedx2 HEENT: NC/AT CV: RRR Resp: Breath sounds clear bilaterally, no increased effort of breathing. Abdomen: Soft, nontender, nondistended Extremities: No edema in lower extremities bilaterally. Updated Medication List Medication Instructions Recorded Confirmed Type aspirin 81 mg tablet,delayed 81 mg PO QAM 06/28/24 07/06/24 History release atorvastatin 40 mg tablet 40 mg PO QAM 06/28/24 07/06/24 History clopidogrel 75 mg tablet 75 mg PO QAM 06/28/24 07/06/24 History ezetimibe 10 mg tablet 10 mg PO DAILY 06/28/24 07/06/24 History insulin aspart U-100 100 unit/mL 0 sliding scale dose continuous 06/28/24 07/06/24 History subcutaneous solution (Novolog subcutaneous infusion CONTINOUS U-100 Insulin aspart) nifedipine 60 mg tablet,extended 60 mg PO QAM 06/28/24 07/06/24 History release 24 hr sodium bicarbonate 650 mg tablet 1,300 mg PO BID 06/28/24 07/06/24 History ferrous sulfate 325 mg (65 mg 325 mg PO QAM #30 tabs 07/03/24 07/06/24 Rx iron) tablet,delayed release folic acid 1 mg tablet 1 mg PO QAM #30 tabs 07/03/24 07/06/24 Rx methimazole 5 mg tablet 5 mg PO BID #60 tabs 07/03/24 07/06/24 Rx metoprolol succinate 100 mg 100 mg PO BID #60 tabs 07/03/24 07/06/24 Rx tablet,extended release 24 hr potassium chloride 40 mEq/15 mL 40 meq (15 mL) PO BID #473 mL 07/03/24 07/06/24 Rx oral liquid amoxicillin 500 mg tablet 500 mg PO BID 10 days #20 tabs 07/05/24 07/06/24 Rx torsemide 100 mg tablet See Rx Instructions .Route .COMPLEX 07/06/24 07/06/24 History torsemide 20 mg tablet See Rx Instructions .Route .COMPLEX 07/06/24 07/06/24 History Hospital Stay Data Consultations 07/06/24 18:40 ED Decision to Admit Stat 07/06/24 19:01 Consult Nephrology Routine 07/07/24 16:56 Consult Psychiatry Routine Diagnostic Imagining Performed 07/06/24 15:57 CT head/brain wo con Stat
--- NOTE | 2024-07-09 18:20 | Hospitalist Progress Note ---
Date of Service July 09, 2024 Assessment & Plan (1) Hyperkalemia: (2) Acute metabolic encephalopathy: (3) ABEL (acute kidney injury): (4) Ambulatory dysfunction: Plan Patient is an 83-year-old female with history of CKD stage IV, diabetes mellitus, paroxysmal A-fib, hypertension, meningioma S/P resection in 2015, hypothyroidism, multinodular goiter, cerebral amyloid angiopathy, TIA, diastolic heart failure and other medical problems presenting with history of confusion, lethargy, and generalized weakness and ambulatory dysfunction. Patient was hospitalized 3 days ago and was treated for acute respiratory failure/pulmonary edema, hypothyroidism, COVID-19 infection, UTI, A-fib RVR and ABEL on CKD stage IV and diastolic heart failure. Acute hyperkalemia ABEL on CKD IV Hold potassium supplements Received calcium gluconate, insulin in ED Continue IV fluids Hold home torsemide Started on Lokelma, has since been discontinued Avoid nephrotoxic agents as able Nephrology consulted, appreciate recs Bladder scan as needed Urine analysis with urine Cx pending Monitor for volume status closely given CKD, history of CHF Acute metabolic encephalopathy Likely underlying dementia Cerebral Amyloid Angiopathy Likely multifactorial secondary to recent UTI, COVID-19 infection, renal failure with elevated BUN, Hypoxia Pt also with significant short term memory loss evident on exam and per family Also very paranoid and suspicious on 07/08 CT head showed no acute findings Mental status back to baseline while in ED per family Follows with Neurology, per family no offical diagnosis of dementia However pt with significant short term memory loss, paranoia, psych consult placed after discussion with pt's at bedside who is agreeable. Appreciate recs Continue amoxicillin for recent UTI Will consider repeating blood/urine cultures if develops any fever Urine Cx NGTD Delirium precautions. Frequent reorientation, avoid sedating medications Continue to monitor Ambulatory dysfunction Generalized weakness Secondary to comorbidities PT OT, fall precautions COVID-19 infection Chest x-ray showed no acute disease Currently saturating well on room air Normal procalcitonin Supportive care Chronic mild troponin elevation Likely due to renal failure Doubt ACS Chronic normocytic anemia Denies any bleeding issues Continue iron, folate supplements She declined Venofer in the past Received Procrit 3 days ago Hemoglobin at baseline Monitor Transfuse as needed, hgb on lower end Atrial fibrillation Rate controlled Continue metoprolol Currently not on anticoagulation due to cerebral amyloid angiopathy per family Diabetes mellitus type 1 Continue insulin Monitor blood glucose levels Hypothyroidism H/O multinodular goiter Follows with endocrinology in [place] TSH better when compared to recent admission Free T4 within normal limits Continue methimazole Hyperlipidemia Continue home medications Chronic diastolic heart failure Currently no signs of volume overload Diuretics on hold due to ABEL Monitor volume status Hypertension Continue metoprolol with holding parameters Continue nifedipine History of TIA Continue aspirin, Plavix, statin Diet: Low K, DMII DVT Px: SCDs for now Dispo: PT/OT for further ecs Admission and Anticipated Discharge Date Admission Date: July 06, 2024 Subjective pt was seen mulitple times. Initially with local son at bedside. Anxious for discharge Later further discussion with son in [place], and pt. Agreeable to staying another night to review her labs. Review of Systems Review of Systems: All systems reviewed & are unremarkable except as noted in Subjective Physical Exam Physical Exam: General: Alert. No acute distress Neuro: short term memory loss, orientedx2 HEENT: NC/AT CV: RRR Resp: Breath sounds clear bilaterally, no increased effort of breathing. Abdomen: Soft, nontender, nondistended Extremities: No edema in lower extremities bilaterally. Results & Data Results & Data Vital Signs (Past 12 Hours) Vital Signs Temp Pulse Resp BP Pulse Ox O2 Del Method 07/09/24 16:00 37.2 C 78 18 112/68 97 Room Air 07/09/24 12:20 36.6 C 81 17 113/75 96 Room Air 07/09/24 08:06 36.3 C L 78 15 101/67 98 Room Air
[2024-07-10 08:25] LABS: Albumin Globulin Ratio 1.2 (0.9-2); BUN Creatinine Ratio 26.9 (10-20); Bilirubin,Total 0.3 mg/dl (0.2-1.0); Calcium 7.7 mg/dl (8.6-10.3); Est GFR (African American) 13.4 ml/min; Est GFR (Non-African American) 11.6 ml/min; Globulin 2.5 gm/dl (2.5-4.0); Magnesium 1.9 mg/dl (1.7-2.4); Phosphorus 3.7 mg/dl (2.5-4.9); Potassium 3.8 mmol/L (3.5-5.1); Total Protein 5.5 gm/dl (6.0-8.3)
[2024-07-10 08:42] LABS: Hematocrit (blood only) 21.3 % (37.0-47.0); Hemoglobin 6.8 g/dl (12.0-16.0); Mean Corpuscular Hemoglobin 29.6 pg (25.0-34.0); Mean Corpuscular Hgb Conc 31.9 g/dL (32.0-36.0); Mean Corpuscular Volume 92.6 fL (80.0-100.0); Mean Platelet Volume 11.1 fL (9.4-12.4); Nucleated RBC # (auto) 0.09 K/uL (0.00-0.12); Nucleated RBC % (auto) 0.7 %; Platelet Count 208 K/uL (130-400); RDW Coefficient of Variation 14.6 % (11.5-14.5); RDW Standard Deviation 44.3 fL (36.4-46.3); White Blood Count 12.07 K/ul (4.8-10.8)
[2024-07-10 08:51] LABS: Acanthocytes 1+; Basophilic Stippling 1+; Basophils # (auto) 0.04 K/uL (0.00-0.20); Basophils % (auto) 0.3 %; Eosinophils # (auto) 0.21 K/uL (0.00-0.50); Eosinophils % (auto) 1.7 %; Immature Granulocytes % (auto) 3.3 %; Lymphocytes # (auto) 1.75 K/uL (1.20-3.40); Lymphocytes % (auto) 14.5 %; Macrocytosis Present; Monocytes % (auto) 5.8 %; Neutrophils # (auto) 8.97 K/uL (1.40-6.50); Neutrophils % (auto) 74.4 %; Polychromasia 2+
[2024-07-10] MEDS ORDERED: SODIUM CHLORIDE 0.9% 250 ML IV PRN (08:54)
--- NOTE | 2024-07-10 09:24 | Nephrology Progress Note ---
Date of Service July 10, 2024 Assessment & Plan (1) Anemia due to stage 4 chronic kidney disease: Plan: t sat on 06/30 was 9% >> profound iron deficiency. hgb down to 6.8 today; extended 7 minute review w/ Carmen [facility] IP Pharmacist re dosing of IV iron (300 mg IV venofer x 1 07/07); had epo 20K units on 07/03, 07/08. -epo adequately dosed; next dose 07/15 same units (based on today's labs) -will stop po iron; not adequately absorbed -will replete iron stores IV >> 300 mg today, tomorrow or as OP -Dr Urban plans pRBC 1 unit as well -I ordered 20 mg IV lasix x 1 after RBC anemia management plan above reviewed on TText w/ Dr Urban; we are in agreement/will proceed. She considers leukocytosis to be reactive so no relative contraindications to venofer. -after discharge will need to be monitored closely for possible MTU visit for pRBC since likely no time to set up with anemia clinic before she leaves for [facility] at latest in early july Time spent in reviewing anemia w/ [facility] / Dr Zee/ making decisions (15 min) + 30 minutes reviewing case w/ sons/hsuband/pt and 5 minutes documentin min total (2) Acute kidney injury superimposed on chronic kidney disease: Plan: She is mostly advanced CKD stage 4 approaching stage 5; baseline labile but mid 3's based on [employer] review. She wants to do home PD ( back and forth between [facility] and [place] > plans to spend 6-8 mos in [facility] starting next month per and then relocate here permanently in spring; has seen a planning consultant there ? how recently). Creat on admission slightly higher than baseline and is already trending down. No diuretics for now though. Recent concern for urine retention--still not sure whether it is detention thing or temporary with recent UTI and deconditioning. if for d/c, recommend voiding trial prior to d/c It is not optimal to be on verge of starting dialysis especially home dialysis and [place] 2 [place] >> hopefully her renal function will recover enough to get to [facility] and be followed closely there and start dialysis when/as needed; otherwise if starting imminently, may need to start/do home training here and then transfer once stabilized/well established Nephrology d/c recommendations (possible d/c in AM): -hospital d/c appt w/ Dr Vaughn with in one week of d/c with phos, albumin, bmp, cbc/diff, transferrin sat, ferritin to be drawn up to 72 hours before that visit -hold torsemide, sodium bicarb, potassium supplements at d/c though she may need to resume these in short order -her hemoglobin is quite low > not sure that she will be able to start with our CKD Anemia clinic before she leaves the state but Dr Vaughn plans to attempt -would also recommend ESRD Options class with family/caregiver as OP and will work w/ Dr Vaughn to arrange (3) Hyperkalemia: Plan: Iatrogenic from KCL supplement prior to admission while on diuretics. has had very poor appetite, though today ate better for first time. >for now no KCL and no Diuretics, though likely to need diuretics if her appetite remains improved (4) Generalized weakness: Plan: primary issue here. She might benefit from some intensive therapy. has severe neuropathy which will make it hard. defer to primary service to coordinate (5) COVID-19 virus infection: Plan: resolved; improving Plan I had a family discussion with her son in [facility], and patient lasting 20 mins; also spent 15 minutes coordinating care w/ Dr Urban and another 10-15 minutes on chart review/documentation. Total time 45 mins . Admission and Anticipated Discharge Date Admission Date: July 06, 2024 Subjective no interval events except hgb dropped more. pt c/o more leg edema distally; no sob or orthopnea; different stories from hsuband and staff if she's eatnig well or no. successful voiding trial after shaw out Review of Systems 2 Review of Systems: All systems reviewed & are unremarkable except as noted in Subjective Physical Exam 2 Constitutional: well developed, well nourished, + thin, + frail appearing (lying in bed on RA, small framed) and cooperative; no acute distress ENMT: Mouth: + dry oral mucous membranes Respiratory: normal respiratory effort Auscultation: + diminished lung sounds Cardiovascular: RRR, no murmur, no edema (no edema on visual inspection) Gastrointestinal (Abdomen): Inspection/Auscultation: normal bowel sounds P ercussion/Palpation: abdomen soft; abdomen nontender Musculoskeletal: Extremities: strength 5/5 throughout Skin: no rashes, warm and dry Psychiatric: Orientation: alert and oriented to person Results & Data Vital Signs (Past 12 Hours) Vital Signs Temp Pulse Resp BP Pulse Ox O2 Del Method 07/10/24 08:02 37.4 C 78 18 118/71 95 Room Air 07/10/24 03:20 36.5 C 95 H 19 118/72 98 Room Air 07/09/24 23:07 36.4 C L 106 H 16 113/64 95 Room Air 07/09/24 22:33 Room Air Laboratory Results 07/10/24 07:44 07/10/24 07:44
--- NOTE | 2024-07-10 14:36 | Hospitalist Progress Note ---
Date of Service July 10, 2024 Assessment & Plan (1) Hyperkalemia: (2) Acute metabolic encephalopathy: (3) ABEL (acute kidney injury): (4) Ambulatory dysfunction: Plan Patient is an 83-year-old female with history of CKD stage IV, diabetes mellitus, paroxysmal A-fib, hypertension, meningioma S/P resection in 2015, hypothyroidism, multinodular goiter, cerebral amyloid angiopathy, TIA, diastolic heart failure and other medical problems presenting with history of confusion, lethargy, and generalized weakness and ambulatory dysfunction. Patient was hospitalized 3 days ago and was treated for acute respiratory failure/pulmonary edema, hypothyroidism, COVID-19 infection, UTI, A-fib RVR and ABEL on CKD stage IV and diastolic heart failure. Acute hyperkalemia ABEL on CKD IV Hold potassium supplements Received calcium gluconate, insulin in ED Continue IV fluids Hold home torsemide Started on Lokelma, has since been discontinued Avoid nephrotoxic agents as able Nephrology consulted, appreciate recs Bladder scan as needed Urine analysis with urine Cx NGTD Monitor for volume status closely given CKD, history of CHF Acute metabolic encephalopathy Likely underlying dementia Cerebral Amyloid Angiopathy Likely multifactorial secondary to recent UTI, COVID-19 infection, renal failure with elevated BUN, Hypoxia Pt also with significant short term memory loss evident on exam and per family Also very paranoid and suspicious on 07/08 CT head showed no acute findings Mental status back to baseline while in ED per family Follows with Neurology, per family no offical diagnosis of dementia However pt with significant short term memory loss, paranoia, psych consult placed after discussion with pt's at bedside who is agreeable. Appreciate recs Continue amoxicillin for recent UTI Will consider repeating blood/urine cultures if develops any fever Urine Cx NGTD Delirium precautions. Frequent reorientation, avoid sedating medications Continue to monitor Ambulatory dysfunction Generalized weakness Secondary to comorbidities PT OT, fall precautions COVID-19 infection Chest x-ray showed no acute disease Currently saturating well on room air Normal procalcitonin Supportive care Chronic mild troponin elevation Likely due to renal failure Doubt ACS Chronic normocytic anemia Denies any bleeding issues Continue iron, folate supplements She declined Venofer in the past Received Procrit 3 days ago Hemoglobin at baseline Monitor Transfuse as needed, hgb on lower end 07/10- received 1U prbcs for hgb 6.8. Atrial fibrillation Rate controlled Continue metoprolol Currently not on anticoagulation due to cerebral amyloid angiopathy per family Diabetes mellitus type 1 Continue insulin Monitor blood glucose levels Hypothyroidism H/O multinodular goiter Follows with endocrinology in [place] TSH better when compared to recent admission Free T4 within normal limits Continue methimazole Hyperlipidemia Continue home medications Chronic diastolic heart failure Currently no signs of volume overload Diuretics on hold due to ABEL Monitor volume status Hypertension Continue metoprolol with holding parameters Continue nifedipine History of TIA Continue aspirin, Plavix, statin Diet: Low K, DMII DVT Px: SCDs for now Dispo: PT/OT for further ecs Admission and Anticipated Discharge Date Admission Date: July 06, 2024 Subjective pt was seen in AM. Blood consent obtained after discussion with her sons who are her POAs and in the room. Review of Systems Review of Systems: All systems reviewed & are unremarkable except as noted in Subjective Physical Exam Physical Exam: General: Alert. No acute distress Neuro: short term memory loss, orientedx2 HEENT: NC/AT CV: RRR Resp: Breath sounds clear bilaterally, no increased effort of breathing. Abdomen: Soft, nontender, nondistended Extremities: No edema in lower extremities bilaterally. Results & Data Results & Data Vital Signs (Past 12 Hours) Vital Signs Temp Pulse Pulse Resp BP BP Pulse Ox 07/10/24 13:34 36.8 C 78 15 126/81 98 07/10/24 12:40 36.6 C 79 17 124/75 97 07/10/24 12:34 36.6 C 79 17 124/75 97 07/10/24 12:04 36.7 C 82 15 127/82 98 07/10/24 11:49 36.7 C 76 15 119/72 98 07/10/24 11:32 36.2 C L 76 18 126/70 98 07/10/24 08:02 37.4 C 78 18 118/71 95 07/10/24 03:20 36.5 C 95 H 19 118/72 98 O2 Del Method 07/10/24 13:34 07/10/24 12:40 Room Air 07/10/24 12:34 07/10/24 12:04 07/10/24 11:49 07/10/24 11:32 07/10/24 08:02 Room Air 07/10/24 03:20 Room Air
[2024-07-10 15:02] LABS: Hemoglobin 8.2 g/dl (12.0-16.0)
[2024-07-10] MEDS: IRON SUCROSE 300 MG in SODIUM CHLORIDE 0.9% 250 ML IV ONE (16:53)
[2024-07-10] MEDS: FUROSEMIDE INJ 20 MG/2 ML VIAL IV ONE (16:53)
[2024-07-11 08:07] LABS: Basophils # (auto) 0.06 K/uL (0.00-0.20); Basophils % (auto) 0.5 %; Eosinophils # (auto) 0.23 K/uL (0.00-0.50); Hematocrit (blood only) 28.1 % (37.0-47.0); Hemoglobin 8.9 g/dl (12.0-16.0); Immature Granulocytes # (auto) 0.23 K/uL (0.01-0.20); Lymphocytes # (auto) 1.57 K/uL (1.20-3.40); Lymphocytes % (auto) 13.7 %; Mean Corpuscular Hemoglobin 28.5 pg (25.0-34.0); Mean Corpuscular Hgb Conc 31.7 g/dL (32.0-36.0); Mean Corpuscular Volume 90.1 fL (80.0-100.0); Monocytes # (auto) 0.77 K/uL (0.11-0.59); Monocytes % (auto) 6.7 %; Neutrophils % (auto) 75.1 %; Nucleated RBC % (auto) 0.9 %; Platelet Count 218 K/uL (130-400); RDW Coefficient of Variation 16.8 % (11.5-14.5); RDW Standard Deviation 47.8 fL (36.4-46.3); Red Blood Count 3.12 M/uL (4.20-5.40); White Blood Count 11.46 K/ul (4.8-10.8)
[2024-07-11 08:19] LABS: Albumin Globulin Ratio 1.1 (0.9-2); BUN Creatinine Ratio 30.7 (10-20); Bilirubin,Total 0.4 mg/dl (0.2-1.0); Calcium 8.3 mg/dl (8.6-10.3); Creatinine Clr Calc Pharmacy 11.2 ml/min; Est GFR (African American) 14.8 ml/min; Est GFR (Non-African American) 12.8 ml/min; Globulin 2.8 gm/dl (2.5-4.0); Magnesium 2.1 mg/dl (1.7-2.4); Phosphorus 3.9 mg/dl (2.5-4.9); Potassium 3.5 mmol/L (3.5-5.1); Total Protein 5.8 gm/dl (6.0-8.3)
--- NOTE | 2024-07-11 09:50 | Nephrology Progress Note ---
Date of Service July 11, 2024 Assessment & Plan (1) Anemia due to stage 4 chronic kidney disease: Plan: t sat on 06/30 was 9% >> profound iron deficiency. hgb improved to 8.9 today; she has had 300 mg IV venofer x 1 07/07; another 300 mg on 07/10; had epo 20K units on 07/03, 07/08. -epo adequately dosed; next dose 07/15 same units (based on today's labs) -will stop po iron; not adequately absorbed -will replete iron stores IV >> 300 mg last dose today > now has had 900 mg IV iron leukocytosis is reactive so no relative contraindications to venofer. -after discharge will need to be monitored closely for possible MTU visit for pRBC since likely no time to set up with anemia clinic before she leaves for [facility] at latest in early july >> that said she has responded to pRBC and has EPO on board as well as now after today being s/p iron load >> we have stabilized appropriately (2) Acute kidney injury superimposed on chronic kidney disease: Plan: She is mostly advanced CKD stage 4 approaching stage 5; baseline labile but mid 3's based on [employer] review. She wants to do home dialysis/ PD ( back and forth between [facility] and [place] > plans to spend 6-8 mos in [facility] starting next month per and then relocate here permanently in spring; has seen a agribusiness professor there ? how recently). Creat on admission slightly higher than baseline and is today at 3.2 further trending down. No diuretics for now though. earlier in admission concern for urine retention--but no concern for recurrence of this since shaw removed It is not optimal to be on verge of starting dialysis especially home dialysis and to be living in 2 different states >> hopefully her renal function will recover enough to get to [facility] and be followed closely there and start dialysis when/as needed; otherwise if starting imminently, may need to start/do home training here and then transfer once stabilized/well established Family reports today (plans change often) plan to leave for [facility] 07/18 and reports she already has 07/25 appt w/ [facility] nephrology Nephrology d/c recommendations (NOTE THESE WERE REVISED 07/11/24): -hospital d/c appt w/ Dr Vaughn with in one week of d/c with phos, albumin, bmp, cbc/diff, transferrin sat, ferritin to be drawn up to 72 hours before that visit -at d/c resume torsemide 40 mg MWF and potassium liquid 20 mEq MWF -hold sodium bicarb at d/c though she may need to resume these in short order -her hemoglobin is quite low > not sure that she will be able to start with our CKD Anemia clinic before she leaves the state but defer to Dr Vaughn whether to attempt; likely to depend on how pt's travel plans finalize (3) Hyperkalemia: Plan: Iatrogenic from KCL supplement prior to admission while on diuretics. has had very poor appetite, though reports she's eating better; however staff report she's not. K 3.5 today >will give liquid KCl x one and torsemide as well as above today starting MWF regimen >> did not tolerate KCl elixir > will give tabs and take away low k diet for now. rationale explained to pt /son/. (4) Generalized weakness: Plan: primary issue here. She might benefit from some intensive therapy. has severe neuropathy which will make it hard. defer to primary service to coordinate (5) COVID-19 virus infection: Plan: resolved; improving Plan I had a family discussion with her son in [facility], and patient lasting 20 mins; also spent 15 minutes coordinating care w/ Dr Urban and another 10-15 minutes on chart review/documentation. Total time 45 mins . Admission and Anticipated Discharge Date Admission Date: July 06, 2024 Subjective seen and evaluated on midday rounds; bedside, one son on phone. pt denies n/v, worsening sob or edema, uncontrolled pain, voiding concerns. she consumed 1.5 boost and then her full breakfast tray Review of Systems 2 Review of Systems: All systems reviewed & are unremarkable except as noted in Subjective Physical Exam 2 Constitutional: well developed, well nourished, + thin, + frail appearing (lying in bed on RA, small framed) and cooperative; no acute distress Respiratory: normal respiratory effort Auscultation: + diminished lung sounds Cardiovascular: RRR, no murmur, no edema (no edema on visual inspection) Gastrointestinal (Abdomen): Inspection/Auscultation: normal bowel sounds P ercussion/Palpation: abdomen soft; abdomen nontender Musculoskeletal: Extremities: strength 5/5 throughout Psychiatric: Orientation: alert and oriented to person Results & Data Vital Signs (Past 12 Hours) Vital Signs Temp Pulse Pulse Resp BP BP Pulse Ox 07/11/24 07:48 36.7 C 91 H 17 144/81 H 98 07/11/24 07:33 79 07/11/24 03:07 36.8 C 70 18 143/90 H 97 07/10/24 22:48 36.5 C 76 18 116/65 94 O2 Del Method 07/11/24 07:48 Room Air 07/11/24 07:33 07/11/24 03:07 Room Air 07/10/24 22:48 Room Air Laboratory Results 07/11/24 07:44 07/11/24 07:44
[2024-07-11] MEDS: TORSEMIDE 20 MG TAB PO SCH (10:48)
[2024-07-11] MEDS: POTASSIUM CHLORIDE 20 MEQ/15 ML UDC PO SCH (10:48)
[2024-07-11] MEDS: IRON SUCROSE 300 MG in SODIUM CHLORIDE 0.9% 250 ML IV ONE (10:48)
--- NOTE | 2024-07-11 12:10 | Hospitalist Progress Note ---
Date of Service July 11, 2024 Assessment & Plan (1) Hyperkalemia: (2) Acute metabolic encephalopathy: (3) ABEL (acute kidney injury): (4) Ambulatory dysfunction: Plan Ms. Garcia is an 83-year-old female with history of CKD stage IV, diabetes mellitus, paroxysmal A-fib, hypertension, meningioma S/P resection in 2015, hypothyroidism, multinodular goiter, cerebral amyloid angiopathy, TIA, diastolic heart failure and other medical problems presenting with history of confusion, lethargy, and generalized weakness and ambulatory dysfunction. Patient was hospitalized on and was treated for acute respiratory failure/pulmonary edema, hypothyroidism, COVID-19 infection, UTI, A-fib RVR and ABEL on CKD stage IV and diastolic heart failure. Patient with ABEL once more on admission and hyperkalemia. Nephrology consulted with close monitoring of labs. #Acute hyperkalemia *resolved #ABEL on CKD IV stable Hold potassium supplements Received calcium gluconate, insulin in ED Continue IV fluids Hold home torsemide Started on Lokelma, has since been discontinued Avoid nephrotoxic agents as able Nephrology consulted, appreciate recs Bladder scan as needed Urine analysis with urine Cx NGTD Monitor for volume status closely given CKD, history of CHF Per nephrology hospital d/c appt w/ Dr Vaughn with in one week of d/c with phos, albumin, bmp, cbc/diff, transferrin sat, ferritin to be drawn up to 72 hours before that visit -at d/c resume torsemide 40 mg MWF and potassium liquid 20 mEq MWF -hold sodium bicarb at d/c though she may need to resume these in short order -her hemoglobin is quite low > not sure that she will be able to start with our CKD Anemia clinic before she leaves the state but defer to Dr Vaughn whether to attempt #Acute metabolic encephalopathy #Likely underlying dementia #Cerebral Amyloid Angiopathy Likely multifactorial secondary to recent UTI, COVID-19 infection, renal failure with elevated BUN, Hypoxia Pt also with significant short term memory loss evident on exam and per family Also very paranoid and suspicious on 07/08 CT head showed no acute findings Mental status back to baseline while in ED per family Follows with Neurology, per family no offical diagnosis of dementia However pt with significant short term memory loss, paranoia, psych consult placed after discussion with pt's at bedside who is agreeable. Appreciate recs completed amoxicillin for recent UTI Urine Cx NGTD Delirium precautions. Frequent reorientation, avoid sedating medications Continue to monitor #Ambulatory dysfunction #Generalized weakness Secondary to comorbidities PT OT, fall precautions #Acute on chronic Chronic normocytic anemia Denies any bleeding issues Continue iron, folate supplements She declined Venofer in the past Received Procrit 3 days ago Hemoglobin at baseline Monitor Transfuse as needed, hgb on lower end 07/10- received 1U prbcs for hgb 6.8. -s/p venofer 900mg IV -after discharge will need to be monitored closely for possible MTU visit for pRBC since likely no time to set up with anemia clinic before she leaves for [facility] at latest in early july #COVID-19 infection Chest x-ray showed no acute disease Currently saturating well on room air Normal procalcitonin Supportive care #Chronic mild troponin elevation Likely due to renal failure Doubt ACS #Persistent Atrial fibrillation Rate controlled Continue metoprolol Currently not on anticoagulation due to cerebral amyloid angiopathy per family #Diabetes mellitus type 1 Continue insulin Monitor blood glucose levels #Hyperthyroidism #H/O multinodular goiter Follows with endocrinology in [place] TSH better when compared to recent admission Free T4 within normal limits Continue methimazole #Hyperlipidemia Continue home medications #Chronic diastolic heart failure Currently no signs of volume overload Diuretics on hold due to ABEL Monitor volume status #Hypertension Continue metoprolol with holding parameters Continue nifedipine #History of TIA Continue aspirin, Plavix, statin Diet: Low K, DMII DVT Px: SCDs for now Dispo: PT/OT for further ecs Admission and Anticipated Discharge Date Admission Date: July 06, 2024 Subjective Patient pleasant at bedside. Assisted to beside commode. Denies any new concerns and notes some return of appetite. at bedside--reports patient is eating more; reports concern and feeling adamant to get patient to [place] Denies any overnight concerns and seems to be hopeful patient is returning Physical Exam Constitutional: frail, weak woman Respiratory: normal respiratory effort, lungs clear to auscultation Cardiovascular: irregularly irregular Gastrointestinal (Abdomen): normal bowel sounds, soft, nontender, no hepatosplenomegaly Results & Data Results & Data Vital Signs (Past 12 Hours) Vital Signs Temp Pulse Pulse Resp BP Pulse Ox O2 Del Method 07/11/24 10:19 Room Air 07/11/24 07:48 36.7 C 91 H 17 144/81 H 98 Room Air 07/11/24 07:33 79 07/11/24 03:07 36.8 C 70 18 143/90 H 97 Room Air Laboratory Results Short CBC 07/10/24 07/11/24 Range/Units 14:47 07:44 WBC 11.46 H (4.8-10.8) K/ul Hgb 8.2 L 8.9 L (12.0-16.0) g/dl Hct 26.0 L 28.1 L (37.0-47.0) % Plt Count 218 (130-400) K/uL BMP 07/11/24 07:44 Sodium 138 Potassium 3.5 Chloride 104 Carbon Dioxide 23 BUN 99 H Creatinine 3.22 H Glucose 157 H Calcium 8.3 L Liver Function 07/11/24 Range/Units 07:44 Total Bilirubin 0.4 (0.2-1.0) mg/dl AST 15 (13-39) U/L ALT 9 (7-52) U/L Alkaline Phosphatase 76 (34-104) U/L Albumin 3.0 L (3.4-5.0) gm/dl Medications Administered Home Medications Medication Instructions Recorded Confirmed Last Taken aspirin 81 mg tablet,delayed 81 mg PO QAM 06/28/24 07/06/24 07/06/24 release atorvastatin 40 mg tablet 40 mg PO QAM 06/28/24 07/06/24 07/06/24 clopidogrel 75 mg tablet 75 mg PO QAM 06/28/24 07/06/24 07/06/24 ezetimibe 10 mg tablet 10 mg PO DAILY 06/28/24 07/06/24 07/06/24 insulin aspart U-100 100 unit/mL 0 sliding scale dose continuous 06/28/24 07/06/24 07/06/24 subcutaneous solution (Novolog subcutaneous infusion CONTINOUS U-100 Insulin aspart) nifedipine 60 mg tablet,extended 60 mg PO QAM 06/28/24 07/06/24 07/06/24 release 24 hr sodium bicarbonate 650 mg tablet 1,300 mg PO BID 06/28/24 07/06/24 07/06/24 ferrous sulfate 325 mg (65 mg 325 mg PO QAM #30 tabs 07/03/24 07/06/24 07/06/24 iron) tablet,delayed release folic acid 1 mg tablet 1 mg PO QAM #30 tabs 07/03/24 07/06/24 07/06/24 methimazole 5 mg tablet 5 mg PO BID #60 tabs 07/03/24 07/06/24 07/06/24 metoprolol succinate 100 mg 100 mg PO BID #60 tabs 07/03/24 07/06/24 07/06/24 tablet,extended release 24 hr potassium chloride 40 mEq/15 mL 40 meq (15 mL) PO BID #473 mL 07/03/24 07/06/24 07/06/24 oral liquid amoxicillin 500 mg tablet 500 mg PO BID 10 days #20 tabs 07/05/24 07/06/24 07/06/24 torsemide 100 mg tablet See Rx Instructions .Route .COMPLEX 07/06/24 07/06/24 07/06/24 torsemide 20 mg tablet See Rx Instructions .Route .COMPLEX 07/06/24 07/06/24 07/06/24 amoxicillin 875 mg-potassium 1 tab PO BID #10 tabs 07/09/24 Unknown clavulanate 125 mg tablet Active Medications Generic Name Dose Route Start Last Admin Trade Name Octavio PRN Reason Stop Dose Admin Amoxicillin 250 mg 07/06/24 21:00 07/11/24 08:29 Amoxicillin 250 Mg Cap PO 07/11/24 20:59 250 mg BID REMEDIOS Administration Aspirin 81 mg 07/07/24 09:00 07/11/24 08:29 Aspirin 81 Mg Ectab PO 08/06/24 08:59 81 mg QAM REMEDIOS Administration Atorvastatin Calcium 40 mg 07/07/24 09:00 07/11/24 08:29 Atorvastatin 40 Mg Tab PO 08/06/24 08:59 40 mg QAM REMEDIOS Administration Calcium/Vitamin D 1 tab 07/09/24 09:45 07/11/24 08:30 Calcium 600mg + Vit D 400 Iu Tab PO 08/08/24 09:44 1 tab BID REMEDIOS Administration Clopidogrel Bisulfate 75 mg 07/07/24 09:00 07/11/24 08:30 Clopidogrel Bisulfate 75 Mg Tab PO 08/06/24 08:59 75 mg QAM REMEDIOS Administration Ezetimibe 10 mg 07/07/24 09:00 07/11/24 08:30 Ezetimibe 10 Mg Tab PO 08/06/24 08:59 10 mg DAILY REMEDIOS Administration Folic Acid 1 mg 07/07/24 09:00 07/11/24 08:31 Folic Acid 1 Mg Tab PO 08/06/24 08:59 1 mg QAM REMEDIOS Administration Insulin Aspart 1 each 07/07/24 07:30 07/11/24 10:03 Insulin, Rapid-Acting Pump N/A 08/06/24 07:29 1 each [facility] Administration Protocol Magnesium Oxide 400 mg 07/08/24 09:10 07/11/24 08:31 Magnesium Oxide 400 Mg Tab PO 08/07/24 09:09 400 mg BID REMEDIOS Administration Methimazole 5 mg 07/06/24 21:00 07/11/24 08:31 Methimazole 5 Mg Tablet PO 08/05/24 20:59 5 mg BID REMEDIOS Administration Metoprolol Succinate 100 mg 07/06/24 21:00 07/11/24 08:31 Metoprolol Succ 50mg Ext Rel Tab PO 08/05/24 20:59 100 mg BID REMEDIOS Administration Miscellaneous 1 each 07/07/24 07:30 07/11/24 08:28 Continuous Glucose Monitor N/A 08/06/24 07:29 1 each [facility] Administration Nifedipine 60 mg 07/08/24 09:00 07/11/24 08:31 Nifedipine Extended Rel 30 Mg Tabcr PO 08/07/24 08:59 60 mg QAM REMEDIOS Administration Potassium Chloride 20 meq 07/11/24 10:00 07/11/24 10:48 Potassium Chloride 20 Meq/15 Ml Udc PO 08/10/24 09:59 20 meq [id number] REMEDIOS Administration Torsemide 40 mg 07/11/24 10:00 07/11/24 10:48 Torsemide 20 Mg Tab PO 08/10/24 09:59 40 mg QAM REMEDIOS Administration
[2024-07-11] MEDS: POTASSIUM CHLORIDE CRTAB 20 MEQ TABCR PO SCH (18:29)
[2024-07-12 06:30] LABS: Hematocrit (blood only) 27.8 % (37.0-47.0); Hemoglobin 9.1 g/dl (12.0-16.0); Mean Corpuscular Hemoglobin 29.6 pg (25.0-34.0); Mean Corpuscular Hgb Conc 32.7 g/dL (32.0-36.0); Mean Corpuscular Volume 90.6 fL (80.0-100.0); Mean Platelet Volume 11.1 fL (9.4-12.4); Platelet Count 227 K/uL (130-400); RDW Standard Deviation 48.7 fL (36.4-46.3); Red Blood Count 3.07 M/uL (4.20-5.40); White Blood Count 10.23 K/ul (4.8-10.8)
[2024-07-12 06:48] LABS: BUN Creatinine Ratio 33.9 (10-20); Calcium 8.8 mg/dl (8.6-10.3); Creatinine Clr Calc Pharmacy 11.1 ml/min; Est GFR (African American) 14.9 ml/min; Est GFR (Non-African American) 12.9 ml/min; Magnesium 2.2 mg/dl (1.7-2.4); Phosphorus 2.9 mg/dl (2.5-4.9); Potassium 4.1 mmol/L (3.5-5.1)
[2024-07-12 08:16] VITALS: RESP 20; TEMP 97.9; O2SAT 97
--- NOTE | 2024-07-12 10:23 | Nephrology Progress Note ---
Date of Service July 12, 2024 Assessment & Plan (1) Acute kidney injury superimposed on chronic kidney disease: Plan: She is mostly advanced CKD stage 4 approaching stage 5; baseline labile but mid 3's based on [employer] review. She wants to do home dialysis/ PD ( back and forth between [facility] and [place] > plans to spend 6-8 mos in [facility] starting next month per and then relocate here permanently in spring; has seen a assistant professor of archaeology there ? how recently). Creat on admission slightly higher than baseline and is today again at 3.2 plateau'd; BUN reasonably high at 108, uptrending gradually since 07/08 from about 70. She had 40 mg po torsemide yesterday and today >> will further lower that to 20 mg MWF and hold until 07/16 earlier in admission concern for urine retention--but no concern for recurrence of this since shaw removed It is not optimal to be on verge of starting dialysis especially home dialysis and to be living in 2 different states >> hopefully her renal function will recover enough to get to [facility] and be followed closely there and start dialysis when/as needed; otherwise if starting imminently, may need to start/do home training here and then transfer once stabilized/well established Family reports today (plans change often) plan to leave for [facility] 07/18 and reports she already has 07/25 appt w/ [facility] nephrology Nephrology d/c recommendations (NOTE THESE WERE REVISED 07/12/24 at 1320 in terms of torsemide dose and Kleberali appt): -hospital d/c appt w/ Dr Vaughn with in one week of d/c with phos, albumin, bmp, cbc/diff, transferrin sat, ferritin to be drawn up to 72 hours before that visit IF SHE DOES NOT leave for [facility] >>will have him see Dr Vaughn if able to do so on 07/17 w/ PCP appt; if not, then will just get labs>> nephro will update pt by MyG either way -at d/c resume torsemide 20 mg MWF and potassium liquid 20 mEq MWF -first torsemide dose on Mon 07/16 -hold sodium bicarb at d/c though she may need to resume these in short order -her hemoglobin is stable x 3 checks now in high 8s/low 9s (9.1 today) > not sure that she will be able to start with our CKD Anemia clinic before she leaves the state but defer to Dr Vaughn whether to attempt; likely to depend on how pt's travel plans finalize (2) Anemia due to stage 4 chronic kidney disease: Plan: t sat on 06/30 was 9% >> profound iron deficiency. hgb improved to 9.1 and stable today; she has had 300 mg IV venofer x 1 07/07; another 300 mg on 07/10; had epo 20K units on 07/03, 07/08. -epo adequately dosed; generally would give next dose 07/16 same units >> however given pause in care and low likelihood of receiving any as OP next 2-3 wks as she transitions between states/health systems, will give extra dose today 10,000 units -do not d/c on po iron; not adequately absorbed; has now had full iron load > though will give 200 mg more today for 1.1 gm total leukocytosis is reactive so no relative contraindications to venofer. -after discharge will need to be monitored closely for possible MTU visit for pRBC since likely no time to set up with anemia clinic before she leaves for [facility] at latest in early july and likelier next week >> that said she has responded to pRBC and has EPO on board as well as now after today being s/p iron load >> we have stabilized appropriately (3) Hyperkalemia: Plan: Iatrogenic from KCL supplement prior to admission while on diuretics. has had very poor appetite, though reports she's eating better; however staff report she's not. K 4.1 today >gentle K supplement w/ diuretic as above (4) Generalized weakness: Plan: primary issue here. She might benefit from some intensive therapy. has severe neuropathy which will make it hard. defer to primary service to coordinate (5) COVID-19 virus infection: Plan: resolved; improving Admission and Anticipated Discharge Date Admission Date: July 06, 2024 Subjective gearing up for hospital d/c. ate well. no sob, edema ok. MS good/baseline. son and at bedside. plan to go to [facility] 07/18 or ; has 07/[address] Johnston Review of Systems 2 Review of Systems: All systems reviewed & are unremarkable except as noted in Subjective Physical Exam 2 Constitutional: well developed (sitting up on RA), well nourished, + thin, + frail appearing (small framed) and cooperative; no acute distress ENMT: Mouth: + dry oral mucous membranes Respiratory: normal respiratory effort Cardiovascular: no edema on visual inspection Musculoskeletal: Extremities: strength 5/5 throughout Skin: no rashes, warm and dry Psychiatric: Orientation: alert and oriented to person Results & Data Vital Signs (Past 12 Hours) Vital Signs Temp Pulse Resp BP Pulse Ox O2 Del Method 07/12/24 08:15 36.6 C 73 20 123/70 97 Room Air 07/12/24 03:21 36.7 C 76 18 136/82 98 Room Air 07/11/24 22:55 36.8 C 80 18 111/64 95 Room Air Laboratory Results 07/12/24 06:01 07/12/24 06:01
--- NOTE | 2024-07-12 11:29 | Discharge Summary ---
Discharge Summary Date of Service July 12, 2024 Principal Dx & Hospital Course #1 = Principal Diagnosis (1) Hyperkalemia: (2) Acute metabolic encephalopathy: (3) ABEL (acute kidney injury): (4) Ambulatory dysfunction: Plan Ms. Garcia is an 83-year-old female with history of CKD stage IV, diabetes mellitus, paroxysmal A-fib, hypertension, meningioma S/P resection in 2014, hypothyroidism, multinodular goiter, cerebral amyloid angiopathy, TIA, diastolic heart failure and other medical problems presenting with history of confusion, lethargy, and generalized weakness and ambulatory dysfunction. Patient was hospitalized on and was treated for acute respiratory failure/pulmonary edema, hypothyroidism, COVID-19 infection, UTI, A-fib RVR and ABEL on CKD stage IV and diastolic heart failure. Patient with ABEL once more on admission and hyperkalemia. Nephrology consulted with close monitoring of labs. Patient with improvement in renal fucntion, but progression of anemia. Patient recieved 1 U PRBC, procrit, and 900mg venofer this admission. Patient completed course of abx for UTI. On day of discharge, patient eating better per family/patient report and with better strength. Patient requires notable assistance from . Son and confirm that they do not want additional services as they plan to go to [place] for her care over the winter months and plan to leave in a weeks time. Encouraged family to establish somewhere and consider permanent residency as patient is borderline with her renal disease. Family verbalized understanding. #Acute hyperkalemia *resolved #ABEL on CKD IV stable Hold potassium supplements Received calcium gluconate, insulin in ED Avoid nephrotoxic agents as able Urine analysis with urine Cx NGTD Monitor for volume status closely given CKD, history of CHF Per nephrology "hospital d/c appt w/ Dr Vaughn with in one week of d/c with phos, albumin, bmp, cbc/diff, transferrin sat, ferritin to be drawn up to 72 hours before that visit -at d/c resume torsemide 20 mg MWF and potassium liquid 20 mEq MWF -hold sodium bicarb at d/c though she may need to resume these in short order -her hemoglobin is quite low > not sure that she will be able to start with our CKD Anemia clinic before she leaves the state but defer to Dr Vaughn whether to attempt" #Acute metabolic encephalopathy *improved #Likely underlying dementia #Cerebral Amyloid Angiopathy Likely multifactorial secondary to recent UTI, COVID-19 infection, renal failure with elevated BUN, Hypoxia Pt also with significant short term memory loss evident on exam and per family Also very paranoid and suspicious on 07/08 CT head showed no acute findings Mental status back to baseline while in ED per family Follows with Neurology, per family no offical diagnosis of dementia However pt with significant short term memory loss, paranoia, psych consult placed after discussion with pt's at bedside who is agreeable. Appreciate recs completed amoxicillin for recent UTI Urine Cx NGTD Delirium precautions. Frequent reorientation, avoid sedating medications Continue to monitor #Ambulatory dysfunction #Generalized weakness Secondary to comorbidities PT OT with HH previously established #Acute on chronic Chronic normocytic anemia Denies any bleeding issues Continue iron, folate supplements She declined Venofer in the past Received Procrit 3 days ago Hemoglobin at baseline Monitor Transfuse as needed, hgb on lower end 07/10- received 1U prbcs for hgb 6.8. -s/p venofer 900mg IV -after discharge will need to be monitored closely for possible MTU visit for pRBC since likely no time to set up with anemia clinic before she leaves for [facility] at latest in early july #COVID-19 infection Chest x-ray showed no acute disease Currently saturating well on room air Normal procalcitonin Supportive care #Chronic mild troponin elevation Likely due to renal failure Doubt ACS #Persistent Atrial fibrillation Rate controlled Continue metoprolol Currently not on anticoagulation due to cerebral amyloid angiopathy per family #Diabetes mellitus type 1 Continue insulin Monitor blood glucose levels #Hyperthyroidism #H/O multinodular goiter Follows with endocrinology in [place] TSH better when compared to recent admission Free T4 within normal limits Continue methimazole Requires endo follow up 3-4 weeks #Hyperlipidemia Continue home medications #Chronic diastolic heart failure Currently no signs of volume overload Diuretics on hold due to ABEL Monitor volume status #Hypertension Continue metoprolol with holding parameters Continue nifedipine #History of TIA Continue aspirin, Plavix, statin Notes For Next Care Provider Nephrology recommendations -hospital d/c appt w/ Dr Vaughn with in one week of d/c with phos, albumin, bmp, cbc/diff, transferrin sat, ferritin to be drawn up to 72 hours before that visit IF SHE DOES NOT leave for [facility] -at d/c resume torsemide 20 mg MWF and potassium liquid 20 mEq MWF -first torsemide dose on 07/16 -hold sodium bicarb at d/c though she may need to resume these in short order -her hemoglobin is stable x 3 checks now in high 8s/low 9s (9.1 today) > not sure that she will be able to start with our CKD Anemia clinic before she leaves the state but defer to Dr Vaughn whether to attempt; likely to depend on how pt's travel plans finalize Requires Endocrinology follow up in 3-4 week for TFT monitoring while on Metolazone Medication Changes From Visit Torsemide DECREASED to 20mg Tue/Tue/Tue Hold sodium bicarb Potassium DECREASED to 20meq MWF Admission Exam Per Admitting Provider Physical Exam: Vitals signs as noted above General Appearance:Thin, frail, no apparent distress Head: normocephalic, Atraumatic Eyes: normal inspection, EOMI Neck: supple, Trachea midline Respiratory/Chest: Decreased breath sounds, CTA, No accessory muscle use Cardiovascular: Irregularly irregular, No murmur Abdomen/GI:Soft, Non tender, Bowel sounds present Extremities/Musculoskeletal:normal inspection, no edema Neurologic/Psych:AAO, grossly no focal neurological deficits Skin: normal color, warm Discharge Exam Constitutional frail thin woman, curled up in bed, responds promptly to verbal stimuli Respiratory normal respiratory effort, lungs clear to auscultation Cardiovascular irregular irregular Gastrointestinal (Abdomen) normal bowel sounds, soft, nontender, no hepatosplenomegaly Updated Medication List Medication Instructions Recorded Confirmed Type aspirin 81 mg tablet,delayed 81 mg PO QAM 06/28/24 07/06/24 History release atorvastatin 40 mg tablet 40 mg PO QAM 06/28/24 07/06/24 History clopidogrel 75 mg tablet 75 mg PO QAM 06/28/24 07/06/24 History ezetimibe 10 mg tablet 10 mg PO DAILY 06/28/24 07/06/24 History insulin aspart U-100 100 unit/mL 0 sliding scale dose continuous 06/28/24 07/06/24 History subcutaneous solution (Novolog subcutaneous infusion CONTINOUS U-100 Insulin aspart) nifedipine 60 mg tablet,extended 60 mg PO QAM 06/28/24 07/06/24 History release 24 hr sodium bicarbonate 650 mg tablet 1,300 mg PO BID 06/28/24 07/06/24 History ferrous sulfate 325 mg (65 mg 325 mg PO QAM #30 tabs 07/03/24 07/06/24 Rx iron) tablet,delayed release folic acid 1 mg tablet 1 mg PO QAM #30 tabs 07/03/24 07/06/24 Rx methimazole 5 mg tablet 5 mg PO BID #60 tabs 07/03/24 07/06/24 Rx metoprolol succinate 100 mg 100 mg PO BID #60 tabs 07/03/24 07/06/24 Rx tablet,extended release 24 hr magnesium oxide 400 mg (241.3 mg 400 mg PO BID #60 tabs 07/12/24 Rx magnesium) tablet potassium chloride 20 mEq 20 meq PO MoWeFr@0900 30 days #13 07/12/24 Rx tablet,extended release(part/cryst) tabs torsemide 20 mg tablet 20 mg PO 3XWK #30 tabs 07/12/24 Rx Hospital Stay Data Consultations 07/06/24 18:40 ED Decision to Admit Stat 07/06/24 19:01 Consult Nephrology Routine 07/07/24 16:56 Consult Psychiatry Routine Diagnostic Imagining Performed 07/06/24 15:57 CT head/brain wo con Stat Pending Results Patient Have Any Pending Studies at Discharge: No Discharge Instructions Given to Patient (Per Discharging Provider) You were admitted for concern of behavioral changes and poor appeitite. You were noted to have some kidney concerns once more. You were followed closely with nephrology. -You received IV iron and blood product to help your anemia. Your labs will be followed closely as an outpatient to address anemia concerns given CKD. -Hold your sodium bicarb, until told to resume by nephrology -Resume torsemide 20 mg three times a week with potassium liquid 20 mEq(Tuesday, Tuesday, Tuesday) -Plan for close follow up with Dr. Vaughn in 1 week with labs prior to visit. -Please take a magnesium supplement 500mg two times a day There is no need for further antibiotics Please also keep close follow up with your primary care provider after discharge. Please do not hesitate to come back to the emergency room if your symptoms worsen or return. It was a pleasure taking care of you while you were here. Total Time Total Time Spent Total Time Spent (In Minutes): 45
[2024-07-12] MEDS: IRON SUCROSE 200 MG in 0.9 % SODIUM CHLORIDE 100 ML IV ONE (12:03)
[2024-07-12] MEDS: EPOETIN ALFA 10,000 UNITS/ML VIAL IV ONE (13:27)
[2024-07-12 14:21] VITALS: BP 123/72; PULSE 102
[2024-07-16] MEDS ORDERED: TORSEMIDE 20 MG TAB PO SCH (09:00)
== END 2024-07-12 14:22 | disposition home health service (06) | DRG 682 ==
LOC: ED 15:45 → SUATTDRO 19:10 → EDINP 19:10 → 4W 20:32

== ENCOUNTER 2025-04-17 12:16 | Inpatient (IN) ==
--- NOTE | 2025-04-17 13:19 | Emergency Department Note ---
Impression & Plan Altered mental status, ABEL (acute kidney injury), Anemia, Acute dehydration, Acute UTI ED Provider Note NAME: CARLOS MOE AGE: 84 SEX: F : 1940 ARRIVES VIA: Walk-In INFORMANT: [Patient][family] ED PROVIDER(S): [Tj Sosa MD] CHIEF COMPLAINT: Weakness HISTORY OF PRESENT ILLNESS: The patient is an 84-year-old female with a diagnosis of mild cognitive impairment. Her mentation has worsened lately and the family thinks she may have a UTI or possibly be dehydrated. She has not had fever. She has not had cough. The patient 2 weeks ago received 1 dose of medication for a UTI, fosfomycin. She also was recently given medication for anemia. No cough or congestion. No fever or chills. No vomiting or diarrhea. PMHx/PSHx/Social Hx: See Below PHYSICAL EXAM: GENERAL: Patient is in no acute distress. Very agitated. HEENT: No acute trauma, normocephalic atraumatic, mucous membranes dry, no nasal congestion. NECK: No stridor, no adenopathy, no meningismus, trachea is midline. LUNGS: Clear to auscultation bilaterally, no wheeze, no rhonchi, breath sounds equal. HEART: Without murmurs gallops or rubs, regular rate and rhythm. ABDOMEN: Soft, nontender, no peritonitis. EXTREMITIES: No cyanosis, full range of motion of all the joints without pain or difficulty. NEUROLOGIC: Awake alert, confused and agitated, no obvious focal motor deficits. SKIN: No jaundice, no diaphoresis. DIFFERENTIAL DIAGNOSIS: Dehydration, UTI, worsening cognitive impairment, electrolyte imbalance, among others. EMERGENCY DEPARTMENT PROCEDURES: MEDICAL DECISION MAKING: There is no leukocytosis. The patient is anemic however, this is a stable finding. There is a normal platelet count. No coagulopathy. There is evidence for acute kidney injury with a creatinine of 4.19. The creatinine value is above her typical baseline. No worrisome liver enzyme elevation. The patient appeared to be in a euthyroid state. ECG shows atrial flutter, no obvious ST elevation. Cardiac enzyme testing x 1 is not consistent with acute cardiac injury. Urinalysis is consistent with infection. Brain CT shows no acute bleed or mass effect. Chest x-ray shows some potential atelectasis or early infiltrate at the left base. No CHF. On exam, the patient was awake and interactive and somewhat agitated. The patient received IV Haldol and IV Ativan. This was given to help with relaxation. This medication worked nicely to control her agitation. She was given IV saline, IV ceftriaxone. Patient has a change in mental status, dehydration, acute kidney injury and a UTI--hospitalization is indicated. I spoke with the patient/family and case management, the on-call hospitalist was consulted. Prior/Outside records/notes reviewed: None ECG per my interpretation: Indication was altered mental state. The ECG shows atrial flutter with a variable AV block. The rate is 72. There is some diffuse nonspecific ST change. There is no ST elevation. No PVCs. The QTc is 473. Continuous Cardiac Monitoring per my interpretation: An order was placed for continuous cardiac monitoring. The monitor shows a rate of 72 with atrial flutter. Imaging/x-ray results per my interpretation: Chest x-ray shows a potential infiltrate versus atelectasis in the left lower lung. Chronic Medical/Social conditions affecting care: Advanced age, history of cognitive impairment. Care/Management discussed with: Case management, the on-call hospitalist. Level of care consideration(s): After review of the information above and other included data: --I believe the patient requires escalation of care to admission DISPOSITION: Admission Past Med/Surg History Problem List (Updated 04/17/25 @ 16:41 by Tj Sosa MD) Acute UTI (Acute) Acute dehydration (Acute) Anemia (Acute) ABEL (acute kidney injury) (Acute) Altered mental status (Acute) Memory changes Delirium due to multiple etiologies Anemia due to stage 4 chronic kidney disease Ambulatory dysfunction ABEL (acute kidney injury) Hyperkalemia Elevated troponin (Acute) Acute kidney injury superimposed on chronic kidney disease (Acute) Hypocalcemia (Acute) Acute hypokalemia (Acute) Acute confusion (Acute) Generalized weakness (Acute) Atrial fibrillation with controlled ventricular response Renal failure (ARF), acute on chronic Weakness COVID-19 virus infection (Acute) Medical History Cognitive impairment Acute metabolic encephalopathy Social History Smoking Status: Unknown if ever smoked Second Hand Exposure: No; Do You Dip or Chew Tobacco: No; Hx Alcohol Use: No Hx Substance Use: No Preferred Language: Polish Communication Ability: Effective Patient Services Rep Required: No Beliefs That Will Affect Care: None Current Living Situation: Spouse and Family Feels Safe at Home: Yes Assistive Devices: Glasses and Walker Allergies Allergies Allergy/AdvReac Type Severity Reaction Status Date / Time No Known Allergies Allergy Verified 07/06/24 18:47 Home Meds Home Medications Medication Instructions Recorded Confirmed aspirin 81 mg tablet,delayed 81 mg PO QAM 06/28/24 04/17/25 release atorvastatin 40 mg tablet 40 mg PO HS 06/28/24 04/17/25 ezetimibe 10 mg tablet 10 mg PO HS 06/28/24 04/17/25 insulin aspart U-100 100 unit/mL 0 sliding scale dose continuous 06/28/24 04/17/25 subcutaneous solution (Novolog subcutaneous infusion CONTINOUS U-100 Insulin aspart) nifedipine 60 mg tablet,extended 30 mg PO QAM 06/28/24 04/17/25 release 24 hr sodium bicarbonate 650 mg tablet 1,300 mg PO BID 06/28/24 04/17/25 Vitamin C 1 tab PO QAM 04/17/25 04/17/25 Vitamin D3 1 tab PO QAM 04/17/25 04/17/25 citalopram 10 mg tablet 15 mg PO HS 04/17/25 04/17/25 d-mannose 500 mg capsule 500 mg PO QAM 04/17/25 04/17/25 donepezil 5 mg tablet 5 mg PO HS 04/17/25 04/17/25 metoprolol tartrate 100 mg tablet 100 mg PO PM 04/17/25 04/17/25 Previous Rx's Medication Instructions Recorded ferrous sulfate 325 mg (65 mg 325 mg PO QAM #30 tabs 07/03/24 iron) tablet,delayed release folic acid 1 mg tablet 1 mg PO QAM #30 tabs 07/03/24 Results & Data (ED) Vital Signs Vital Signs - 24 hr 04/17/25 12:20 04/17/25 12:39 04/17/25 12:39 Temperature 36.8 C Temperature Source Temporal Artery Scan Pulse Rate 72 Pulse Rate [Apical] Respiratory Rate 18 Respiratory Effort / Characteristics Non-Labored Spontaneous Respiratory Depth Normal Respiratory Pattern Regular Blood Pressure 97/63 L Blood Pressure [Right Arm] Blood Pressure Mean 74 Blood Pressure Mean [Right Arm] Pulse Oximetry 96 95 95 Oxygen Delivery Method Room Air Room Air Room Air Sepsis Recent Fever Within 48 Hours No Sepsis New/Unexplained Change in Mental Status No Sepsis Action Taken by Nursing No Action Required 04/17/25 13:06 04/17/25 14:00 04/17/25 15:00 Temperature Temperature Source Pulse Rate 72 Pulse Rate [Apical] 86 76 Respiratory Rate 18 18 Respiratory Effort / Characteristics Non-Labored Spontaneous Non-Labored Spontaneous Respiratory Depth Normal Normal Respiratory Pattern Regular Blood Pressure Blood Pressure [Right Arm] 150/94 H 117/73 Blood Pressure Mean Blood Pressure Mean [Right Arm] 112 87 Pulse Oximetry 96 95 Oxygen Delivery Method Room Air Room Air Sepsis Recent Fever Within 48 Hours Sepsis New/Unexplained Change in Mental Status Sepsis Action Taken by Nursing 04/17/25 16:00 Temperature Temperature Source Pulse Rate Pulse Rate [Apical] 66 Respiratory Rate 18 Respiratory Effort / Characteristics Non-Labored Spontaneous Respiratory Depth Normal Respiratory Pattern Regular Blood Pressure Blood Pressure [Right Arm] 125/70 Blood Pressure Mean Blood Pressure Mean [Right Arm] 88 Pulse Oximetry 95 Oxygen Delivery Method Room Air Sepsis Recent Fever Within 48 Hours Sepsis New/Unexplained Change in Mental Status Sepsis Action Taken by Longterm Medications Current Medication List: was personally reviewed by me Laboratory Data Attestation: I reviewed the patient's lab results. 04/17/25 12:37 04/17/25 14:12 Lab Results 04/17/25 04/17/25 04/17/25 Range/Units 12:37 13:57 14:12 WBC 7.75 (4.8-10.8) K/ul RBC 3.34 L (4.20-5.40) M/uL Hgb 9.8 L (12.0-16.0) g/dl Hct 30.8 L (37.0-47.0) % MCV 92.2 (80.0-100.0) fL MCH 29.3 (25.0-34.0) pg MCHC 31.8 L (32.0-36.0) g/dL RDW Std Deviation 49.1 H (36.4-46.3) fL RDW Coeff of Sean 14.7 H (11.5-14.5) % Plt Count 217 (130-400) K/uL MPV 11.4 (9.4-12.4) fL Immature Gran % (Auto) 0.8 % Neut % (Auto) 75.7 % Lymph % (Auto) 14.8 % [place] % (Auto) 7.1 % Eos % (Auto) 0.8 % Baso % (Auto) 0.8 % Neut # (Auto) 5.87 (1.40-6.50) K/uL Lymph # (Auto) 1.15 L (1.20-3.40) K/uL [place] # (Auto) 0.55 (0.11-0.59) K/uL Eos # (Auto) 0.06 (0.00-0.50) K/uL Baso # (Auto) 0.06 (0.00-0.20) K/uL Immature Gran # (Auto) 0.06 (0.01-0.20) K/uL PT Cancelled 10.9 INR Cancelled 1.0 APTT Cancelled 25 PTT Ratio Cancelled 0.9 Sodium 137 (136-145) mmol/L Potassium TNP 3.9 Chloride 98 (98-107) mmol/L Carbon Dioxide 28 (21-32) mmol/L Anion Gap 11 (3-11) BUN 81 H (6-23) mg/dl Creatinine 4.19 H (0.6-1.2) mg/dl Est Cr Clr Drug Dosing Not Reportable eGFR 10.02 BUN/Creatinine Ratio 19.3 (10-20) Glucose 167 H (70-99(Fasting)) mg/dl Calcium 9.6 (8.6-10.3) mg/dl Magnesium 2.5 H (1.7-2.4) mg/dl Total Bilirubin 0.5 (0.2-1.0) mg/dl AST TNP 18 ALT 13 (7-52) U/L Alkaline Phosphatase 65 (34-104) U/L Troponin I High Sens 10.4 (0-14) pg/ml Total Protein 6.5 (6.0-8.3) gm/dl Albumin 3.3 L (3.4-5.0) gm/dl Globulin 3.2 (2.5-4.0) gm/dl Albumin/Globulin Ratio 1.0 (0.9-2) TSH 0.390 (0.300-4.500) uIu/ml Urine Color Yellow Urine Appearance Cloudy A (Clear) Urine pH 8.5 H (4.5-7.5) Ur Specific [place] 1.012 (1.000-1.030) Urine Protein 3+ H (Negative) Urine Glucose (UA) Negative (Negative) Urine Ketones Trace H (Negative) Urine Blood Trace H (Negative) Urine Nitrite Negative (Negative) Urine Bilirubin Negative (Negative) Urine Urobilinogen Negative (Negative) Ur Leukocyte Esterase 2+ H (Negative) Urine WBC (Auto) >50 H (0-5) /hpf Urine RBC (Auto) 0-2 (0-2) /hpf U Hyaline Cast (Auto) 3-5 H (0-2) /lpf U Epithel Cells (Auto) 0-2 (0-2) /hpf Urine Bacteria (Auto) 4+ H (None Seen) Urine Comment Administered Medications Discontinued Medications Haloperidol Lactate (Haloperidol Lactate 5 Mg/Ml 1 Ml Vial) 1 mg IV NOW STA Stop: 04/17/25 13:07 Last Admin: 04/17/25 13:31 Dose: 1 mg Documented By: GCC Sodium Chloride (Nss) 500 mls @ 999 mls/hr IV .Q31M ONE Stop: 04/17/25 13:36 Last Infusion: 04/17/25 14:02 Dose: Infused Documented By: Admin: 04/17/25 13:31 Dose: 999 mls/hr Documented By: GCC Sodium Chloride (Nss) 500 mls @ 999 mls/hr IV .Q31M ONE Stop: 04/17/25 14:51 Last Infusion: 04/17/25 15:33 Dose: Infused Documented By: Admin: 04/17/25 15:02 Dose: 999 mls/hr Documented By: GCC Ceftriaxone Sodium (Rocephin) 2,000 mg in 50 mls @ 100 mls/hr IV NOW STA Stop: 04/17/25 15:45 Last Infusion: 04/17/25 15:45 Dose: Infused Documented By: Admin: 04/17/25 15:19 Dose: 100 mls/hr Documented By: GCC Lorazepam (Lorazepam 2 Mg/1 Ml Vial) 0.5 mg IV NOW STA Stop: 04/17/25 13:07 Last Admin: 04/17/25 13:34 Dose: 0.5 mg Documented By: GCC Imaging Data Radiologist's Impression: Chest X-Ray 04/17/25 12:39 XR chest 1V portable CLINICAL HISTORY: Weakness COMPARISON STUDY: 07/06/2024 FINDINGS: Stable left atrial appendage occlusion device. Stable moderate cardiomegaly without pulmonary vascular congestion. Inspiration is shallow. There is interval mild stranding opacity at the left lung base. No other consolidation or pleural effusion. No pneumothorax. Stable old left rib fractures. IMPRESSION: Atelectasis versus early pneumonia left lung base. ACT 112: Negative or not required by law. Electronically signed by: Saman Oliva M.D. 04/17/2025 1:[address] 04/17/25 13:06 CT SCAN OF THE BRAIN WITHOUT IV CONTRAST CLINICAL HISTORY: Altered mental status. COMPARISON STUDY: Head CT July 06, 2024. TECHNIQUE: Unenhanced axial CT scan of the brain was performed from the vertex to the skull base. A dose lowering technique was utilized adhering to the principles of ALARA. CT DOSE: 625.8 mGy.cm FINDINGS: Brain parenchyma: No acute intracranial hemorrhage, midline shift or mass effect is present. Ibarra-white matter differentiation is preserved. There are no extra- axial fluid collections. There are no findings to suggest acute dural sinus thrombosis or acute territorial infarct. White matter hypodensities are unchanged and favor small vessel disease. Multifocal encephalomalacia is noted. Ventricles, sulci, cisterns: There is no hydrocephalus. The ventricular system is stable. Ventricular dilatation is likely due to atrophy. The basal cisterns are patent. Calvarium: There are no calvarial fractures. Stable findings following left- sided craniotomy. Sinuses and mastoids: The visualized paranasal sinuses are clear. The mastoid air cells are well pneumatized. Orbits: The bony orbits are grossly intact. IMPRESSION: No acute intracranial findings. ACT 112: Negative or not required by law. Electronically signed by: Jossue Ernandez M.D. 04/17/2025 2:10 PM Discharge Plan Visit Data Chief Complaint: Weakness Stated Complaint: WEAKNESS, UTI ED Provider: Tj Sosa Discharge Problem: Altered mental status, ABEL (acute kidney injury), Anemia, Acute dehydration, Acute UTI Patient Disposition: Admitted As Inpatient Condition: Fair Forms Stand Alone Forms: [facility] [employer] Prescriptions Prescriptions: No Action donepezil 5 mg tablet 5 mg PO HS metoprolol tartrate 100 mg tablet 100 mg PO PM citalopram 10 mg tablet 15 mg PO HS Rx Instructions: family will need to check her dosing. 1 1/2 tabs d-mannose 500 mg Capsule 500 mg PO QAM Vitamin C 1 tab PO QAM Vitamin D3 1 tab PO QAM atorvastatin 40 mg tablet 40 mg PO HS aspirin 81 mg Tablet,Delayed Release (Dr/Ec) 81 mg PO QAM Rx Instructions: Per family no other blood thinners because of brain bleed. nifedipine 60 mg tablet extended release 24hr 30 mg PO QAM sodium bicarbonate 650 mg tablet 1,300 mg PO BID Hold Instructions: until PCP or nephrology follow up insulin aspart U-100 [Novolog U-100 Insulin aspart] 100 unit/mL solution 0 sliding scale dose continuous subcutaneous infusion CONTINOUS Rx Instructions: family would prefer her to continue infusion device, it's easier for family to keep up. ezetimibe 10 mg tablet 10 mg PO HS folic acid 1 mg Tablet 1 mg PO QAM Qty: 30 0RF ferrous sulfate 325 mg (65 mg iron) Tablet,Delayed Release (Dr/Ec) 325 mg PO QAM Qty: 30 0RF Referrals Referrals: Cecilia Madden DO [Primary Care Provider] - Discharge Problem: Altered mental status Qualifiers: Altered mental status type: unspecified Qualified Code(s): R41.82 - Altered mental status, unspecified Anemia Qualifiers: Anemia type: unspecified type Qualified Code(s): D64.9 - Anemia, unspecified
[2025-04-17 13:27] LABS: Alanine Aminotransferase 13 U/L (7-52); Albumin Level 3.3 gm/dl (3.4-5.0); Alkaline Phosphatase 65 U/L (34-104); Anion Gap 11 (3-11); BUN Creatinine Ratio 19.3 (10-20); Bilirubin,Total 0.5 mg/dl (0.2-1.0); Blood Urea Nitrogen 81 mg/dl (6-23); Calcium 9.6 mg/dl (8.6-10.3); Carbon Dioxide 28 mmol/L (21-32); Chloride 98 mmol/L (98-107); Globulin 3.2 gm/dl (2.5-4.0); Glucose 167 mg/dl (70-99(Fasting)); Magnesium 2.5 mg/dl (1.7-2.4); Sodium 137 mmol/L (136-145); Total Protein 6.5 gm/dl (6.0-8.3); Troponin I High Sensitivity 10.4 pg/ml (0-14)
[2025-04-17 13:30] LABS: Basophils # (auto) 0.06 K/uL (0.00-0.20); Basophils % (auto) 0.8 %; Eosinophils # (auto) 0.06 K/uL (0.00-0.50); Eosinophils % (auto) 0.8 %; Hematocrit (blood only) 30.8 % (37.0-47.0); Hemoglobin 9.8 g/dl (12.0-16.0); Immature Granulocytes # (auto) 0.06 K/uL (0.01-0.20); Immature Granulocytes % (auto) 0.8 %; Lymphocytes # (auto) 1.15 K/uL (1.20-3.40); Lymphocytes % (auto) 14.8 %; Mean Corpuscular Hemoglobin 29.3 pg (25.0-34.0); Mean Corpuscular Hgb Conc 31.8 g/dL (32.0-36.0); Mean Corpuscular Volume 92.2 fL (80.0-100.0); Mean Platelet Volume 11.4 fL (9.4-12.4); Monocytes # (auto) 0.55 K/uL (0.11-0.59); Monocytes % (auto) 7.1 %; Neutrophils # (auto) 5.87 K/uL (1.40-6.50); Neutrophils % (auto) 75.7 %; Platelet Count 217 K/uL (130-400); RDW Coefficient of Variation 14.7 % (11.5-14.5); RDW Standard Deviation 49.1 fL (36.4-46.3); Red Blood Count 3.34 M/uL (4.20-5.40); White Blood Count 7.75 K/ul (4.8-10.8)
[2025-04-17] MEDS: SODIUM CHLORIDE 0.9% 500 ML IV ONE ×2 (13:31→15:02)
[2025-04-17] MEDS: HALOPERIDOL LACTATE 5 MG/ML 1 ML VIAL IV STA (13:31)
[2025-04-17] MEDS: LORazepam 2 MG/1 ML VIAL IV STA (13:34)
--- NOTE | 2025-04-17 13:50 | XRay Report ---
XR chest 1V portable CLINICAL HISTORY: Weakness COMPARISON STUDY: 07/06/2024 FINDINGS: Stable left atrial appendage occlusion device. Stable moderate cardiomegaly without pulmona ry vascular congestion. Inspiration is shallow. There is interval mild stranding opacity at the left lung base. No other consolidation or pleural effusion. No pneumothorax. Stable old left rib fractures . IMPRESSION: Atelectasis versus early pneumonia left lung base. ACT 112: Negative or not required by law. Electronically signed by: Saman Oliva M.D. 04/17/2025 1:49 PM
--- NOTE | 2025-04-17 14:11 | CT Scan Report ---
CT SCAN OF THE BRAIN WITHOUT IV CONTRAST CLINICAL HISTORY: Altered mental status. COMPARISON STUDY: Head CT July 06, 2024. TECHNIQUE: Unenhanced axial CT scan of the brain was performed from the vertex to the skull base. A dose lowering technique was utilized adhering to the principles of ALARA. CT DOSE: 625.8 mGy.cm FINDINGS: Brain parenchyma: No acute intracranial hemorrhage, midline shift or mass effect is present. Ibarra-whi te matter differentiation is preserved. There are no extra-axial fluid collections. There are no find ings to suggest acute dural sinus thrombosis or acute territorial infarct. White matter hypodensities are unchanged and favor small vessel disease. Multifocal encephalomalacia is noted. Ventricles, sulci, cisterns: There is no hydrocephalus. The ventricular system is stable. Ventricular dilatation is likely due to atrophy. The basal cisterns are patent. Calvarium: There are no calvarial fractures. Stable findings following left-sided craniotomy. Sinuses and mastoids: The visualized paranasal sinuses are clear. The mastoid air cells are well pneu matized. Orbits: The bony orbits are grossly intact. IMPRESSION: No acute intracranial findings. ACT 112: Negative or not required by law. Electronically signed by: Jossue Ernandez M.D. 04/17/2025 2:10 PM
[2025-04-17 14:41] LABS: Appearance Urine Cloudy (Clear); Bacteria Urine Automated 4+ (None Seen); Bilirubin Urine Negative (Negative); Blood Urine Trace (Negative); Color Urine Yellow; Epithelial Cell Urine Auto 0-2 /hpf (0-2); Glucose Urine UA Negative (Negative); Ketones Urine Trace (Negative); Leukocyte Esterase Urine 2+ (Negative); Nitrite Urine Negative (Negative); Protein Urine 3+ (Negative); RBC Urine Automated 0-2 /hpf (0-2); Specific Gravity Urine 1.012 (1.000-1.030); Urobilinogen Urine Negative (Negative); WBC Urine Automated >50 /hpf (0-5); pH Urine 8.5 (4.5-7.5)
[2025-04-17 14:44] LABS: Potassium 3.9 mmol/L (3.5-5.1)
[2025-04-17 14:55] LABS: Partial Thromboplastin Ratio 0.9; Partial Thromboplastin Time 25 Seconds (21-31); Prothrombin Time 10.9 Seconds (9.0-12.0)
[2025-04-17] MEDS: cefTRIAXone SODIUM 2,000 MG/50 ML BAG IV STA (15:19)
--- NOTE | 2025-04-17 15:53 | History & Physical Report ---
Date of Service April 17, 2025 Assessment & Plan (1) Acute UTI: (2) Acute metabolic encephalopathy: (3) Generalized weakness: (4) Acute kidney injury superimposed on CKD: Plan Patient is an 84-year-old female with past medical history significant for DM type I, CKD stage IV/V with high-grade proteinuria, anemia of chronic disease, PAF s/p left atrial appendage occluder device placement in March 2024, HTN, HLD, chronic diastolic HF, history of meningioma s/p resection in 2014, multinodular goiter, cerebral amyloid angiopathy, TIA, mild cognitive impairment and other problems listed below who presented to the ED for evaluation of generalized weakness and confusion. #Acute UTI #History of recurrent UTIs S/p IV Rocephin in ED Prior urine cx --> group B Strep agalactiae Continue IV Rocephin pending urine cx results Follow blood cxs #Metabolic encephalopathy Suspect ISO above Likely delirium component superimposed on underlying MCI S/p Haldol and Ativan in ED 2/2 agitation Delirium precautions Avoid sedating medications as able May benefit from 1-1 sitter for frequent reorientation NPO for now --> bedside swallow study when more alert #Generalized weakness #Physical deconditioning Rapid decline in LOF over past 3 weeks Now mostly wheelchair bound for transfers Suspect 2/2 above Used to walk w/ only walker assistance Lives at home w/ Recently established with HH aide Obtain PT/OT evals as able Fall precautions #ABEL superimposed on CKD stage IV/V F/w nephro at both [facility] and [facility], Dr. Vaughn Not on dialysis Cr was 2.4 in Sep 2024 per Cr 4.19, BUN 81 on admission S/p 1L NSS in ED Hold off on additional IVF for now given h/o diastolic HF Appreciate nephro consult for further recs Continue Na+ bicarb #PAF #Cerebral amyloid angiopathy Continue Lopressor Not on any anticoagulants 2/2 h/o cerebral amyloid angiopathy per family S/p LAAO device placement in 03/2024 #Type I DM Patient on insulin pump and continuous glucose monitor; wants to continue to use insulin pump and continuous glucose monitor while inpatient. GLucose check ACHS #Anemia of chronic disease Recently established w/ [facility] Started on Aranesp --> last dose on 04/15 per family Hgb currently stable Continue iron, folic acid supplements Continue H/H monitoring #Mild cognitive impairment Hold donepezil for now 2/2 risk of QTc prolongation w/ concomitant Celexa use F/w neuropsych in [facility] --> recently diagnosed w/ this last year Teeth grinding noted w/ increased donepezil doses (dose recently decreased from 10mg) #HLD Continue Zetia, ASA, statin #Anxiety/depression Continue Celexa #Hyperthyroidism #H/o multinodular goiter F/w endocrinology in [facility] TSH WNL #Chronic diastolic HF Appears euvolemic on exam Judicious IVF use Closely monitor volume status #HTN Continue nifedipine w/ hold parameters DVT Prophylaxis: SCDs/TEDs Code Status: FULL CODE - Per discussion w/ patient's at bedside. Disposition: Admit to med/telemetry Patient seen in collaboration with Dr. Gaitan. Please see addendum. I spent a total of 76 minutes coordinating, documenting, and providing care for this patient excluding time spent in the performance of separately billed services or time spent by another provider/QHP. This included personally reviewing all current laboratories and imaging studies, medical reconciliation, outpatient chart review and discussion with specialists. This chart was completed in part utilizing Speech Voice Recognition Software. Grammatical errors, random word insertions, pronoun errors, and incomplete sentences are an occasional consequence of this system due to software limitations, ambient noise, and hardware issues. Any formal questions or concerns about the content, text, or information contained within the body of this dictation should be directly addressed to the provider for clarification. History of Present Illness Chief Complaint: Generalized weakness, confusion Primary Care Provider: Cecilia Madden DO Patient is an 84-year-old female with past medical history significant for DM type I, CKD stage IV/V with high-grade proteinuria, anemia of chronic disease, PAF s/p left atrial appendage occluder device placement in March 2024, HTN, HLD, chronic diastolic HF, history of meningioma s/p resection in 2014, multinodular goiter, cerebral amyloid angiopathy, TIA, mild cognitive impairment and other problems listed below who presented to the ED for evaluation of generalized we akness and confusion. Unable to obtain any meaningful history from the patient. History obtained from the patient's son, Regis, over the phone at [phone] and patient's at bedside. Reportedly patient has exhibited increasingly progressive weakness and deconditioning over the past 3 weeks with notable decline in level of functioning to where she is requiring wheelchair use for transportation. Patient also seems more confused per family - i.e. not recognizing family members. She is currently living at home with her , whom is her primary caregiver. However, they recently established with a home health agency whom will be providing them with assistance M-F from 9a-5p. Her son, Regis, lives across the street. The patient and her recently moved back to the area from [facility] where she followed with multiple different specialties including nephrology, endocrinology and neuropsychology. Known CKD stage IV/V. Has seen Dr. Vaughn with [facility] nephrology in the past as well. No reported fevers, chills or body aches. No reported cough, congestion, SOB or chest pain. Patient did, however, complain of "vaginal pain" earlier this morning which her states she typically complains of when she has a UTI. Of note, she has had approximately 10 UTIs in the 1-2 years per family. Recently was diagnosed with UTI as an outpatient on 04/04/25 and was prescribed fosfomycin 3g x 1. Known anemia of chronic disease. Recently established care with [facility] hematology - ENIO Asher. Patient was started on Aranesp and her last dose was given 2 days ago at home. She was diagnosed with mild cognitive impairment in [facility] last year and started on donepezil. Recently her dose of donepezil was decreased from 10mg HS to 5mg HS as the increased dose caused incessant teeth grinding per her . Of note, patient is a classically trained pianist. No reported smoking history. Rare alcohol use. No recreational drug use. Notable decline in oral intake over the past week. Allergies Allergy/AdvReac Type Severity Reaction Status Date / Time No Known Allergies Allergy Verified 07/06/24 18:47 Home Medications Medication Instructions Recorded Confirmed Type aspirin 81 mg tablet,delayed 81 mg PO QAM 06/28/24 04/17/25 History release atorvastatin 40 mg tablet 40 mg PO HS 06/28/24 04/17/25 History ezetimibe 10 mg tablet 10 mg PO HS 06/28/24 04/17/25 History insulin aspart U-100 100 unit/mL 0 sliding scale dose continuous 06/28/24 04/17/25 History subcutaneous solution (Novolog subcutaneous infusion CONTINOUS U-100 Insulin aspart) nifedipine 60 mg tablet,extended 30 mg PO QAM 06/28/24 04/17/25 History release 24 hr sodium bicarbonate 650 mg tablet 1,300 mg PO BID 06/28/24 04/17/25 History ferrous sulfate 325 mg (65 mg 325 mg PO QAM #30 tabs 07/03/24 04/17/25 Rx iron) tablet,delayed release folic acid 1 mg tablet 1 mg PO QAM #30 tabs 07/03/24 04/17/25 Rx Vitamin C 1 tab PO QAM 04/17/25 04/17/25 History Vitamin D3 1 tab PO QAM 04/17/25 04/17/25 History citalopram 10 mg tablet 15 mg PO HS 04/17/25 04/17/25 History d-mannose 500 mg capsule 500 mg PO QAM 04/17/25 04/17/25 History darbepoetin rosenda in polysorbat 25 See Rx Instructions .Route .COMPLEX 04/17/25 04/17/25 History mcg/0.42 mL in polysorbate injection syringe (Aranesp) donepezil 5 mg tablet 5 mg PO HS 04/17/25 04/17/25 History metoprolol tartrate 100 mg tablet 100 mg PO PM 04/17/25 04/17/25 History Past Med/Surg History Problem List (Updated 04/17/25 @ 18:11 by Vielka Ambrosio PA-C) Acute kidney injury superimposed on CKD Acute UTI (Acute) Acute dehydration (Acute) Anemia (Acute) ABEL (acute kidney injury) (Acute) Altered mental status (Acute) Memory changes Delirium due to multiple etiologies Anemia due to stage 4 chronic kidney disease Ambulatory dysfunction ABEL (acute kidney injury) Hyperkalemia Elevated troponin (Acute) Acute kidney injury superimposed on chronic kidney disease (Acute) Hypocalcemia (Acute) Acute hypokalemia (Acute) Acute confusion (Acute) Generalized weakness (Acute) Atrial fibrillation with controlled ventricular response Renal failure (ARF), acute on chronic Weakness COVID-19 virus infection (Acute) Medical History Cognitive impairment Acute metabolic encephalopathy Social History Smoking Status: Never smoker Second Hand Exposure: No; Do You Dip or Chew Tobacco: No; Hx Alcohol Use: No Hx Substance Use: No Preferred Language: Sinhala Communication Ability: Impaired Sampling Theory Teacher Required: No Beliefs That Will Affect Care: None Current Living Situation: Spouse Feels Safe at Home: Yes Safety Concerns: Feels Safe At This Time Assistive Devices: Glasses and Walker Review of Systems Review of Systems: Unable to obtain ROS due to patient's altered mentation level. Physical Exam Physical Exam: General/Neurologic: Elderly F. NAD. Laying down in bed. Appears comfortable. Somnolent, not responsive to verbal or physical stimuli s/p Ativan and Haldol. Spontaneous movement of all extremities noted. at bedside. HEENT: Normocephalic, atraumatic. Conjunctivae normal. External ear and nose normal, oropharynx normal. Respiratory: Normal respiratory effort, lungs clear to auscultation bilaterally. No accessory muscle use. Cardiovascular: Regular rate, irregularly irregular rhythm. Normal peripheral pulses, no BLE edema. Abdomen/GI: Normal bowel sounds, soft, nontender to palpation in all quadrants. Extremities/MSK: No cyanosis or clubbing, moves all extremities. Unable to test extremity strength 2/2 AMS. Results & Data Results & Data Vital Signs (Past 12 Hours) Vital Signs Temp Pulse Pulse Resp BP BP Pulse Ox 04/17/25 15:00 76 18 117/73 95 04/17/25 14:00 86 18 150/94 H 96 04/17/25 13:06 72 04/17/25 12:39 95 04/17/25 12:39 95 04/17/25 12:20 36.8 C 72 18 97/63 L 96 O2 Del Method 04/17/25 15:00 Room Air 04/17/25 14:00 Room Air 04/17/25 13:06 04/17/25 12:39 Room Air 04/17/25 12:39 Room Air 04/17/25 12:20 Room Air Laboratory Results Short CBC 04/17/25 Range/Units 12:37 WBC 7.75 (4.8-10.8) K/ul Hgb 9.8 L (12.0-16.0) g/dl Hct 30.8 L (37.0-47.0) % Plt Count 217 (130-400) K/uL BMP 04/17/25 04/17/25 12:37 14:12 Sodium 137 Potassium TNP 3.9 Chloride 98 Carbon Dioxide 28 BUN 81 H Creatinine 4.19 H Glucose 167 H Calcium 9.6 Liver Function 04/17/25 04/17/25 Range/Units 12:37 14:12 Total Bilirubin 0.5 (0.2-1.0) mg/dl AST TNP 18 ALT 13 (7-52) U/L Alkaline Phosphatase 65 (34-104) U/L Albumin 3.3 L (3.4-5.0) gm/dl Urine 04/17/25 Range/Units 13:57 Urine Color Yellow Urine Appearance Cloudy A (Clear) Urine pH 8.5 H (4.5-7.5) Ur Specific [place] 1.012 (1.000-1.030) Urine Protein 3+ H (Negative) Urine Glucose (UA) Negative (Negative) Diagnostic Findings Chest X-Ray 04/17/25 12:39 XR chest 1V portable CLINICAL HISTORY: Weakness COMPARISON STUDY: 07/06/2024 FINDINGS: Stable left atrial appendage occlusion device. Stable moderate cardiomegaly without pulmonary vascular congestion. Inspiration is shallow. There is interval mild stranding opacity at the left lung base. No other consolidation or pleural effusion. No pneumothorax. Stable old left rib fractures. IMPRESSION: Atelectasis versus early pneumonia left lung base. ACT 112: Negative or not required by law. Electronically signed by: Saman Oliva M.D. 04/17/2025 1:[address] 04/17/25 13:06 CT SCAN OF THE BRAIN WITHOUT IV CONTRAST CLINICAL HISTORY: Altered mental status. COMPARISON STUDY: Head CT July 06, 2024. TECHNIQUE: Unenhanced axial CT scan of the brain was performed from the vertex to the skull base. A dose lowering technique was utilized adhering to the principles of ALARA. CT DOSE: 625.8 mGy.cm FINDINGS: Brain parenchyma: No acute intracranial hemorrhage, midline shift or mass effect is present. Ibarra-white matter differentiation is preserved. There are no extra- axial fluid collections. There are no findings to suggest acute dural sinus thrombosis or acute territorial infarct. White matter hypodensities are unchanged and favor small vessel disease. Multifocal encephalomalacia is noted. Ventricles, sulci, cisterns: There is no hydrocephalus. The ventricular system is stable. Ventricular dilatation is likely due to atrophy. The basal cisterns are patent. Calvarium: There are no calvarial fractures. Stable findings following left- sided craniotomy. Sinuses and mastoids: The visualized paranasal sinuses are clear. The mastoid air cells are well pneumatized. Orbits: The bony orbits are grossly intact. IMPRESSION: No acute intracranial findings. ACT 112: Negative or not required by law. Electronically signed by: Jossue Ernandez M.D. 04/17/2025 2:10 PM Medications Administered Discontinued Medications Haloperidol Lactate (Haloperidol Lactate 5 Mg/Ml 1 Ml Vial) 1 mg IV NOW STA Stop: 04/17/25 13:07 Last Admin: 04/17/25 13:31 Dose: 1 mg Documented By: ABRAM Sodium Chloride (Nss) 500 mls @ 999 mls/hr IV .Q31M ONE Stop: 04/17/25 13:36 Last Infusion: 04/17/25 14:02 Dose: Infused Documented By: Admin: 04/17/25 13:31 Dose: 999 mls/hr Documented By: ABRAM Sodium Chloride (Nss) 500 mls @ 999 mls/hr IV .Q31M ONE Stop: 04/17/25 14:51 Last Admin: 04/17/25 15:02 Dose: 999 mls/hr Documented By: ABRAM Ceftriaxone Sodium (Rocephin) 2,000 mg in 50 mls @ 100 mls/hr IV NOW STA Stop: 04/17/25 15:45 Last Admin: 04/17/25 15:19 Dose: 100 mls/hr Documented By: ABRAM Lorazepam (Lorazepam 2 Mg/1 Ml Vial) 0.5 mg IV NOW STA Stop: 04/17/25 13:07 Last Admin: 04/17/25 13:34 Dose: 0.5 mg Documented By: GCC Code Status & VTE Plan Code Status FULL CODE Supervising Physician Co-Signing Physician Notes Patient seen and examined independently. Discussed with above provider Patient presented to the hospital with altered mental status. Suspected to have delirium secondary to UTI in setting of mild cognitive impairment. Continue on ceftriaxone; follow-up on urine culture, delirium precaution, continue home meds. Will continue n.p.o. for now given altered mentation in setting of medication/UTI. Discussed with the patient regarding removing insulin pump while patient is hospitalized; he reported that he feels more comfortable with having the patient on insulin pump and monitoring her blood glucose level with continuous glucose monitor. I discussed potential risks of hyper glycemia and hypoglycemia; he verbalized understanding but would like to use the insulin pump and the continuous glucose monitor while she is hospitalized. He reported that he has done so in the past as well during her previous hospitalization. I have reviewed the advanced practitioner's documentation, and I agree with, and take responsibility for the plan of care I spent a total of 30 minutes coordinating, documenting, and providing care for this patient excluding time spent in the performance of separately billed services. All of the aforementioned completed while collaborating with the assigned advanced practitioner for a full treatment plan
[2025-04-17] MEDS ORDERED: GLUCOSE 40% GEL 15 GM TUBE PO PRN (18:02)
[2025-04-17] MEDS ORDERED: DEXTROSE 50% 50 ML SYRINGE IV PRN (18:02)
[2025-04-17] MEDS ORDERED: GLUCAGON FOR INJ 1 MG VIAL SQ PRN (18:02)
[2025-04-17] MEDS ORDERED: CARBOHYDRATES FOR HYPOGLYCEMIA PO PRN (18:02)
[2025-04-17] MEDS ORDERED: GLUCOSE 10 TAB/TUBE PO PRN (18:02)
[2025-04-17] MEDS ORDERED: PHARMACY GLYCEMIC MGMT CONSULT PRN (18:02)
[2025-04-17] MEDS ORDERED: PROMETHAZINE 6.25 MG/50.25 ML BAG IV PRN (18:05)
[2025-04-17] MEDS ORDERED: ACETAMINOPHEN 325 MG TAB PO PRN (18:05)
[2025-04-17] MEDS ORDERED: MAGNESIUM HYDROXIDE SUSP 30 ML UDC PO PRN (18:05)
[2025-04-17] MEDS ORDERED: POLYETHYLENE (MIRALAX) 17 GM PACK PO PRN (18:05)
[2025-04-17] MEDS ORDERED: LANTUS PER UNIT CHARGE SQ SCH (21:00)
[2025-04-17] MEDS ORDERED: INSULIN ASPART PER UNIT CHARGE SC SCH ×2 (21:00→21:30)
[2025-04-17] MEDS: Patient's HEIGHT &/or WEIGHT Needed STA (22:47)
[2025-04-17] MEDS: SODIUM BICARBONATE 650 MG TAB PO SCH (23:26)
[2025-04-17] MEDS: EZETIMIBE 10 MG TAB PO SCH (23:27)
[2025-04-17] MEDS: METOPROLOL TARTRATE 100 MG TAB PO SCH (23:27)
[2025-04-17] MEDS: ATORVASTATIN 40 MG TAB PO SCH (23:27)
[2025-04-17] MEDS: CITALOPRAM 20 MG TAB PO SCH (23:28)
[2025-04-18] MEDS ORDERED: CARBOHYDRATES FOR HYPOGLYCEMIA PO PRN
[2025-04-18] MEDS ORDERED: GLUCAGON FOR INJ 1 MG VIAL SQ PRN
[2025-04-18] MEDS ORDERED: DEXTROSE 50% 50 ML SYRINGE IV PRN
[2025-04-18] MEDS ORDERED: GLUCOSE 10 TAB/TUBE PO PRN
[2025-04-18] MEDS ORDERED: GLUCOSE 40% GEL 15 GM TUBE PO PRN
[2025-04-18] MEDS ORDERED: INSULIN ASPART 100 UNITS/ML VIAL SC PRN
[2025-04-18] MEDS: INSULIN, Rapid-Acting PUMP SC SCH (01:18)
--- NOTE | 2025-04-18 04:18 | Electrocardiogram Report ---
Test Reason : Blood Pressure : */* mmHG Vent. Rate : 72 BPM Atrial Rate : 300 BPM P-R Int : * ms QRS Dur : 76 ms QT Int : 432 ms P-R-T Axes : * -39 11 degrees QTcB Int : 473 ms Atrial fibrillation Left axis deviation Minimal voltage criteria for LVH, may be normal variant ( Drifting product ) Nonspecific ST and T wave abnormality Abnormal ECG When compared with ECG of 06-Jul-2024 18:13, QRS axis Shifted left Criteria for Septal infarct are no longer Present Confirmed by Awais Anthony ([id number]) on 04/18/2025 4:18:24 AM Referred By: Confirmed By: Awais Anthony
[2025-04-18 07:13] LABS: Hematocrit (blood only) 26.8 % (37.0-47.0); Hemoglobin 8.6 g/dl (12.0-16.0); Mean Corpuscular Hemoglobin 29.6 pg (25.0-34.0); Mean Corpuscular Hgb Conc 32.1 g/dL (32.0-36.0); Mean Corpuscular Volume 92.1 fL (80.0-100.0); Mean Platelet Volume 10.6 fL (9.4-12.4); Platelet Count 187 K/uL (130-400); RDW Standard Deviation 48.7 fL (36.4-46.3); Red Blood Count 2.91 M/uL (4.20-5.40); White Blood Count 5.89 K/ul (4.8-10.8)
--- NOTE | 2025-04-18 07:21 | Hospitalist Progress Note ---
Date of Service April 18, 2025 Assessment & Plan (1) Acute UTI: (2) Altered mental status: (3) Generalized weakness: (4) Acute kidney injury superimposed on CKD: Plan Patient is an 84-year-old female with past medical history significant for DM type I, CKD stage IV/V with high-grade proteinuria, anemia of chronic disease, PAF s/p left atrial appendage occluder device placement in March 2024, HTN, HLD, chronic diastolic HF, history of meningioma s/p resection in 2014, multinodular goiter, cerebral amyloid angiopathy, TIA, mild cognitive impairment and other problems listed below who presented to the ED for evaluation of generalized weakness and confusion. #Acute UTI #History of recurrent UTIs S/p IV Rocephin in ED Prior urine cx --> group B Strep agalactiae Continue IV Rocephin pending urine cx results Follow blood cxs #AMS --> likely delirium ISO MCI, ? poss underlying mod dementia S/p Haldol and Ativan in ED 2/2 agitation Has been cooperative w/ staff Avoid sedating agents as able Delirium precautions May benefit from 1-1 sitter for frequent reorientation #Generalized weakness #Physical deconditioning Rapid decline in LOF over past 3 weeks per pt's Used to walk w/ only walker assistance Now mostly wheelchair bound for transfers ? 2/2 above or 2/2 advancing MCI vs. dementia Lives at home w/ Recently established with HH aide Obtain PT/OT evals as able --> ? benefit from SNF vs. HH Fall precautions #ABEL superimposed on CKD stage IV/V F/w nephro at both [facility] Eric and Dr. Johana Moura Not on dialysis Cr was 2.4 in Sep 2024 per S/p 1L NSS in ED Cr slowly improving Hold off on additional IVF for now given h/o diastolic HF Continue Na+ bicarb Will hold off on nephro consult for now #PAF #Cerebral amyloid angiopathy Continue Lopressor Not on any anticoagulants 2/2 h/o cerebral amyloid angiopathy per family S/p LAAO device placement in 03/2024 #Type I DM Pt on insulin pump and CGM; wants to continue to use insulin pump and continuous glucose monitor while inpt Continue BSG checks ACHS #Anemia of chronic disease Recently established w/ [facility] Started on Aranesp --> last dose on 04/15 per family H/H remains stable Continue iron, folic acid supplements #Mild cognitive impairment Holding donepezil for now 2/2 drowsiness and risk of QTc prolongation w/ concomitant Celexa use F/w neuropsych in [facility] --> recently diagnosed w/ MCI this last year Teeth grinding noted w/ increased donepezil doses (dose recently decreased from 10mg) #HLD Continue Zetia, ASA, statin #Anxiety/depression Continue Celexa #Hyperthyroidism #H/o multinodular goiter F/w endocrinology in [facility] TSH WNL #Chronic diastolic HF Appears euvolemic on exam Judicious IVF use Closely monitor volume status #HTN Hold nifedipine for now DVT Prophylaxis: SCDs/TEDs only in light of cerebral amyloid angiopathy --> NO chemical AC per discussion w/ family Code Status: FULL CODE Disposition: PT/OT evals for routine d/c planning; updated pt's at bedside on above plans of care Patient seen in collaboration with Dr. Demarco. Please see addendum. I spent a total of 42 minutes coordinating, documenting, and providing care for this patient excluding time spent in the performance of separately billed services or time spent by another provider/QHP. This included personally reviewing all current laboratories and imaging studies, medical reconciliation, outpatient chart review and discussion with specialists. This chart was completed in part utilizing Speech Voice Recognition Software. Grammatical errors, random word insertions, pronoun errors, and incomplete se ntences are an occasional consequence of this system due to software limitations, ambient noise, and hardware issues. Any formal questions or concerns about the content, text, or information contained within the body of this dictation should be directly addressed to the provider for clarification. Admission and Anticipated Discharge Date Admission Date: April 17, 2025 Supervising Physician Co-Signing Physician Notes Patient seen and examined at bedside. Patient curled up in bed and minimally conversational during initial evaluation, did not know location or time. On repeat evaluation, up in bed and more alert. Discussed case with at [facility]. Chart reviewed both here at [facility] and through [facility] with [employer] system. MOCA in 2022 (12/2022, uploaded in records from OSH) revealed score of 21/30 indicating mild cognitive impairment. Per chart review, patient has had increasing confusion and weakness over past few weeks, and episodes of intermittent confusion becoming more frequent over past few years. Appears to follow with Awais Pyle MD from [facility] for neurology. On exam, alert and oriented x1, curled up in bed, no pitting edema, RRR. Confused this morning. Noted haldol and ativan x1 respectively given in ED yesterday. Given last MOCA was in 2022 and was at that time (to best of my ability to chart review), suspect progressive dementia c/b hyperactive delirium, cerebral amyloid angiopathy and potential complicated UTI (symptoms difficult to ascertain). Will need repeat MOCA once in outpatient setting to determine rate of decline. Hold donepezil for now given anticholinergic properties, can consider starting memantine in outpatient setting. Will benefit from neurology follow up outpatient. Continue abx for 7 day course total, limit anticholinergics, gentle hydration, resetting sleep wake cycle, avoid antipsychotics. I have seen and discussed the case with the collaborating advanced practitioner. I agree with the above H&P. I have reviewed and confirmed the patients medical history, the findings on physical examination, and the patients diagnosis and treatment plan with Hebert SMALLWOOD and agree with the information documented. I spent a total of 50 minutes coordinating, documenting, and providing care for this patient excluding time spent in the performance of separately billed services. All of the aforementioned completed outside of collaborating with the assigned advanced practitioner for a full treatment plan. I have reviewed the advanced practitioner's documentation, and I agree with, and take responsibility for the plan of care Subjective Patient seen and examined in room W258-1. Patient quite drowsy but awakens to verbal stimuli. Does not participate well with conversation but smiles and has reportedly been communicating with her whom is present at bedside. Tolerating HH, DMI diet without issue. Review of Systems Review of Systems: Unable to properly obtain, patient not participating in conversation. Physical Exam Physical Exam: General/Neurologic: Elderly F. NAD. Laying down in bed. Appears comfortable. Somnolent, not responsive to verbal or physical stimuli s/p Ativan and Haldol. Spontaneous movement of all extremities noted. at bedside. HEENT: Normocephalic, atraumatic. Conjunctivae normal. External ear and nose normal, oropharynx normal. Respiratory: Normal respiratory effort, lungs clear to auscultation bilaterally. No accessory muscle use. Cardiovascular: Regular rate, irregularly irregular rhythm. Normal peripheral pulses, no BLE edema. Abdomen/GI: Normal bowel sounds, soft, nontender to palpation in all quadrants. Extremities/MSK: No cyanosis or clubbing, moves all extremities. Unable to test extremity strength 2/2 AMS. Results & Data Results & Data Vital Signs (Past 12 Hours) Vital Signs Temp Pulse Pulse Resp BP BP Pulse Ox 04/18/25 03:39 36.5 C 73 16 121/76 97 04/17/25 22:35 36.6 C 86 16 106/65 96 04/17/25 21:48 69 04/17/25 20:00 O2 Del Method 04/18/25 03:39 Room Air 04/17/25 22:35 Room Air 04/17/25 21:48 04/17/25 20:00 Room Air Laboratory Results Short CBC 04/18/25 Range/Units 06:53 WBC 5.89 (4.8-10.8) K/ul Hgb 8.6 L (12.0-16.0) g/dl Hct 26.8 L (37.0-47.0) % Plt Count 187 (130-400) K/uL BMP 04/17/25 04/18/25 14:12 06:53 Sodium 138 Potassium 3.9 4.3 Chloride 100 Carbon Dioxide 28 BUN 77 H Creatinine 3.81 H D Glucose 106 H Calcium 8.6 Liver Function 04/17/25 Range/Units 14:12 AST 18 (13-39) U/L Urine 04/17/25 Range/Units 13:57 Urine Color Yellow Urine Appearance Cloudy A (Clear) Urine pH 8.5 H (4.5-7.5) Ur Specific [place] 1.012 (1.000-1.030) Urine Protein 3+ H (Negative) Urine Glucose (UA) Negative (Negative) (2) Altered mental status Altered mental status type: unspecified Qualified Code(s): R41.82 - Altered mental status, unspecified
[2025-04-18 07:38] LABS: BUN Creatinine Ratio 20.2 (10-20); Calcium 8.6 mg/dl (8.6-10.3); Creatinine Clr Calc Pharmacy 8.6 ml/min; Magnesium 2.4 mg/dl (1.7-2.4); Phosphorus 3.8 mg/dl (2.5-4.9); Potassium 4.3 mmol/L (3.5-5.1)
[2025-04-18] MEDS ORDERED: ONDANSETRON INJ 2 MG/ML 2 ML VIAL IV PRN (07:51)
[2025-04-18] MEDS: NIFEdipine EXTENDED REL 30 MG TABCR PO SCH (08:35)
[2025-04-18] MEDS: ASPIRIN 81 MG ECTAB PO SCH (08:36)
[2025-04-18] MEDS: FOLIC ACID 1 MG TAB PO SCH (08:36)
[2025-04-18] MEDS ORDERED: NON-FORMULARY MEDICATION (D-Mannose 500 mg Capsule) PO SCH (09:00)
[2025-04-18] MEDS: cefTRIAXone SODIUM 2,000 MG/50 ML BAG IV SCH (14:54)
[2025-04-19 06:46] LABS: Hematocrit (blood only) 25.8 % (37.0-47.0); Hemoglobin 8.3 g/dl (12.0-16.0); Mean Corpuscular Hemoglobin 29.5 pg (25.0-34.0); Mean Corpuscular Hgb Conc 32.2 g/dL (32.0-36.0); Mean Corpuscular Volume 91.8 fL (80.0-100.0); Mean Platelet Volume 10.7 fL (9.4-12.4); Platelet Count 176 K/uL (130-400); RDW Coefficient of Variation 15.4 % (11.5-14.5); RDW Standard Deviation 50.4 fL (36.4-46.3); Red Blood Count 2.81 M/uL (4.20-5.40)
[2025-04-19 07:01] LABS: BUN Creatinine Ratio 20.9 (10-20); Calcium 8.4 mg/dl (8.6-10.3); Creatinine Clr Calc Pharmacy 9.1 ml/min; Magnesium 2.2 mg/dl (1.7-2.4); Phosphorus 4.1 mg/dl (2.5-4.9); Potassium 4.2 mmol/L (3.5-5.1)
[2025-04-19 07:50] VITALS: BP 150/89; PULSE 88; RESP 16; TEMP 97.9; O2SAT 95
--- NOTE | 2025-04-19 11:24 | Discharge Summary ---
Discharge Summary Date of Service April 19, 2025 Principal Dx & Hospital Course #1 = Principal Diagnosis (1) Abnormal urinalysis: (2) Altered mental status: (3) Generalized weakness: (4) Acute kidney injury superimposed on CKD: Plan Patient is an 84-year-old female with past medical history significant for DM type I, CKD stage IV/V with high-grade proteinuria, anemia of chronic disease, PAF s/p left atrial appendage occluder device placement in March 2024, HTN, HLD, chronic diastolic HF, history of meningioma s/p resection in 2014, multinodular goiter, cerebral amyloid angiopathy, TIA, mild cognitive impairment and other p roblems listed below who presented to the ED for evaluation of generalized weakness and confusion. #Abnormal UA --> UTI ruled-out #History of recurrent UTIs Prior urine cx --> group B Strep agalactiae Initially started on IV Rocephin Prelim urine cx negative Prelim blood cxs negative Suspect contaminated UA ABX discontinued #AMS --> likely delirium ISO suspected underlying mod dementia and dehydration #Mild cognitive impairment #Generalized weakness #Physical deconditioning F/w neuropsych in [facility] --> recently diagnosed w/ MCI this last year S/p Haldol and Ativan in ED 2/2 agitation Did not require any further sedating agents Participated w/ OT prior to d/c Seems to have returned back to baseline mentation level per discussion w/ pt's and son Lives w/ , son across the street Pt's refused SNF placement, HH services HH aide arranged to help M-F from 9a-5p Resume donepezil #ABEL superimposed on CKD stage IV/V --> IMPROVED F/w nephro at both [facility] and LyleDr. Vaughn Not on dialysis Cr was 2.4 in Sep 2024 per S/p 1L NSS in ED Cr slowly improving Continue Na+ bicarb Advise repeat BMP at PCP f/u appt #PAF #Cerebral amyloid angiopathy Continue Lopressor Not on any anticoagulants 2/2 h/o cerebral amyloid angiopathy per family S/p LAAO device placement in 03/2024 #Type I DM BSG readings have remained stable Continue insulin pump on d/c --> manages this #Anemia of chronic disease Recently established w/ [facility] Started on Aranesp --> last dose on 04/15 per family H/H remained around her baseline Continue iron, folic acid supplements #HLD Continue Zetia, ASA, statin #Anxiety/depression Continue Celexa #Hyperthyroidism #H/o multinodular goiter F/w endocrinology in [facility] TSH WNL #Chronic diastolic HF Remained euvolemic Did not require diuresis #HTN Resume nifedipine Disposition: Pt is being d/c'd home w/ her , HH aide services already arranged by family; long discussion w/ fam at bedside prior to d/c, all questions were answered Patient seen in collaboration with Dr. Demarco. Please see addendum. I spent a total of 62 minutes coordinating, documenting, and providing care for this patient excluding time spent in the performance of separately billed services or time spent by another provider/QHP. This included personally reviewing all current laboratories and imaging studies, medical reconciliation, outpatient chart review and discussion with specialists. This chart was completed in part utilizing Speech Voice Recognition Software. Grammatical errors, random word insertions, pronoun errors, and incomplete sentences are an occasional consequence of this system due to software limitations, ambient noise, and hardware issues. Any formal questions or concerns about the content, text, or information contained within the body of this dictation should be directly addressed to the provider for clarification. Notes For Next Care Provider Repeat BMP in 1-2 weeks to monitor renal function Medication Changes From Visit No medication changes were made this admission Admission HPI Per Admitting Provider Patient is an 84-year-old female with past medical history significant for DM type I, CKD stage IV/V with high-grade proteinuria, anemia of chronic disease, PAF s/p left atrial appendage occluder device placement in March 2024, HTN, HLD, chronic diastolic HF, history of meningioma s/p resection in 2014, multinodular goiter, cerebral amyloid angiopathy, TIA, mild cognitive impairment and other problems listed below who presented to the ED for evaluation of generalized weakness and confusion. Unable to obtain any meaningful history from the patient. History obtained from the patient's son, Regis, over the phone at [phone] and patient's at bedside. Reportedly patient has exhibited increasingly progressive weakness and deconditioning over the past 3 weeks with notable decline in level of functioning to where she is requiring wheelchair use for transportation. Patient also seems more confused per family - i.e. not recognizing family members. She is currently living at home with her , whom is her primary caregiver. However, they recently established with a home health agency whom will be providing them with assistance M-F from 9a-5p. Her son, Regis, lives across the street. The patient and her recently moved back to the area from [facility] where she followed with multiple different specialties including nephrology, endocrinology and neuropsychology. Known CKD stage IV/V. Has seen Dr. Vaughn with [facility] nephrology in the past as well. No reported fevers, chills or body aches. No reported cough, congestion, SOB or chest pain. Patient did, however, complain of "vaginal pain" earlier this morning which her states she typically complains of when she has a UTI. Of note, she has had approximately 10 UTIs in the 1-2 years per family. Recently was diagnosed with UTI as an outpatient on 04/04/25 and was prescribed fosfomycin 3g x 1. Known anemia of chronic disease. Recently established care with [facility] hematology - ENIO Asher. Patient was started on Aranesp and her last dose was given 2 days ago at home. She was diagnosed with mild cognitive impairment in [facility] last year and started on donepezil. Recently her dose of donepezil was decreased from 10mg HS to 5mg HS as the increased dose caused incessant teeth grinding per her . Of note, patient is a classically trained pianist. No reported smoking history. Rare alcohol use. No recreational drug use. Notable decline in oral intake over the past week. Admission Exam Per Admitting Provider General/Neurologic: Elderly F. NAD. Laying down in bed. Appears comfortable. Somnolent, not responsive to verbal or physical stimuli s/p Ativan and Haldol. Spontaneous movement of all extremities noted. at bedside. HEENT: Normocephalic, atraumatic. Conjunctivae normal. External ear and nose normal, oropharynx normal. Respiratory: Normal respiratory effort, lungs clear to auscultation bilaterally. No accessory muscle use. Cardiovascular: Regular rate, irregularly irregular rhythm. Normal peripheral pulses, no BLE edema. Abdomen/GI: Normal bowel sounds, soft, nontender to palpation in all quadrants. Extremities/MSK: No cyanosis or clubbing, moves all extremities. Unable to test extremity strength 2/2 AMS. Discharge Exam General/Neurologic: Elderly F. Frail. NAD. Sitting up in chair at bedside. Appears comfortable. Smiling and communicating w/ family at bedside. Periods of baseline confusion and forgetfulness. and son at bedside. HEENT: Normocephalic, atraumatic. Conjunctivae normal. External ear and nose normal, oropharynx normal. Respiratory: Normal respiratory effort, lungs clear to auscultation bilaterally. No accessory muscle use. Cardiovascular: Regular rate, irregularly irregular rhythm. Normal peripheral pulses, no BLE edema. Abdomen/GI: Normal bowel sounds, soft, nontender to palpation in all quadrants. Extremities/MSK: No cyanosis or clubbing, moves all extremities. Unable to test extremity strength. Updated Medication List Medication Instructions Recorded Confirmed Type aspirin 81 mg tablet,delayed 81 mg PO QAM 06/28/24 04/17/25 History release atorvastatin 40 mg tablet 40 mg PO HS 06/28/24 04/17/25 History ezetimibe 10 mg tablet 10 mg PO HS 06/28/24 04/17/25 History insulin aspart U-100 100 unit/mL 0 sliding scale dose continuous 06/28/24 04/17/25 History subcutaneous solution (Novolog subcutaneous infusion CONTINOUS U-100 Insulin aspart) nifedipine 60 mg tablet,extended 30 mg PO QAM 06/28/24 04/17/25 History release 24 hr sodium bicarbonate 650 mg tablet 1,300 mg PO BID 06/28/24 04/17/25 History ferrous sulfate 325 mg (65 mg 325 mg PO QAM #30 tabs 07/03/24 04/17/25 Rx iron) tablet,delayed release folic acid 1 mg tablet 1 mg PO QAM #30 tabs 07/03/24 04/17/25 Rx Vitamin C 1 tab PO QAM 04/17/25 04/17/25 History Vitamin D3 1 tab PO QAM 04/17/25 04/17/25 History citalopram 10 mg tablet 15 mg PO HS 04/17/25 04/17/25 History d-mannose 500 mg capsule 500 mg PO QAM 04/17/25 04/17/25 History darbepoetin rosenda in polysorbat 25 See Rx Instructions .Route .COMPLEX 04/17/25 04/17/25 History mcg/0.42 mL in polysorbate injection syringe (Aranesp) donepezil 5 mg tablet 5 mg PO HS 04/17/25 04/17/25 History metoprolol tartrate 100 mg tablet 100 mg PO PM 04/17/25 04/17/25 History Hospital Stay Data Consultations 04/17/25 15:46 ED Decision to Admit Stat Diagnostic Imagining Performed 04/17/25 13:06 CT head/brain wo con Stat Pending Results Patient Have Any Pending Studies at Discharge: No Discharge Instructions Given to Patient (Per Discharging Provider) Mrs. Garcia was admitted to [facility] with altered mental status in the setting of dehydration. There was suspicion that she possibly had a urinary tract infection (UTI) however this was RULED-OUT as her urine culture came back NEGATIVE, meaning NO bacterial growth in her urine. She improved with IV hydration and has returned back to her baseline mentation status. SUMMARY OF TEST RESULTS: 1. Urine culture with no bacterial growth. 2. Blood cultures with no bacterial growth. RECOMMENDATIONS FOR FOLLOW-UP Date & Time: 04/25/2025 @ 9:40 AM Provider: Cecilia Madden DO Location: [facility] Please attend the above PCP follow-up appointment as scheduled. It has been a pleasure taking care of Mrs. Garcia. If there are any questions regarding her recent hospitalization, please contact [facility] and request a [facility] Hospitalist @ [phone]. Total Time Total Time Spent Total Time Spent (In Minutes): 62 Supervising Physician Co-Signing Physician Notes Patient seen at bedside. Sitting comfortably in chair. On exam, well appearing, awake. Of note, urine culture with no growth, minimal improvement on abx, will stop abx as patient likely has bacteriuria not UTI given no growth on culture. Patient has likely progression of dementia with overlying hypoactive delirium which has now resolved. Patient refused to work with PT/OT. Medically stable for discharge at this time. I have seen and discussed the case with the collaborating advanced practitioner. I agree with the above H&P. I have reviewed and confirmed the patients medical history, the findings on physical examination, and the patients diagnosis and treatment plan with Hebert SMALLWOOD and agree with the information documented. I spent a total of 20 minutes coordinating, documenting, and providing care for this patient excluding time spent in the performance of separately billed services. All of the aforementioned completed outside of collaborating with the assigned advanced practitioner for a full treatment plan. I have reviewed the advanced practitioner's documentation, and I agree with, and take responsibility for the plan of care
== END 2025-04-19 12:58 | disposition home health service (06) | DRG 884 ==
LOC: ED 12:16 → 2W 16:02 → SUATTDRO 16:02 → 2W 16:44

== ENCOUNTER 2025-06-28 15:42 | Inpatient (IN) ==
--- NOTE | 2025-06-28 15:45 | Emergency Department Note ---
Impression & Plan Sepsis, Acute dehydration, Syncope, Acute UTI, Pneumonia ED Provider Note NAME: CARLOS MOE AGE: 84 SEX: F : 1940 ARRIVES VIA: Ambulance INFORMANT: Patient, ED PROVIDER(S): Helder Ortiz MD CHIEF COMPLAINT: Altered mental status, syncope MEDICAL DECISION MAKING: Patient presents with the above. Patient reported syncopized in the shower. Septic workup initiated the patient was hypotensive upon presentation. The patient was able to answer questions appropriately gross finger counting was able to give me patient's full name. IV was established and blood work is obtained along with CT head and screening chest x-ray. Patient was ordered IV cefepime empirically. 1 L of IV fluids ordered. Pulm reassessment did speak with the family who stated the patient was recently started on medication for her cognitive issues and they report that it really made her more sedated and had a lack of appetite. She did stop this 2 nights ago. Patient was noted to be hypothermic and was placed on a Raad hugger. Patient with a normal white count hemoglobin at 9.7 which is chronic and stable. Patient's platelet count is unremarkable. Kidney function with creatinine 4.7. The patient was ordered additional IV fluids in light of the patient's elevated lactate as well as hypotension. Initial lactate of 2.8. Troponin 16.7. Urinalysis does show concerns for possible infection and the patient's chest x- ray does show concern for right lower lobe pneumonia. The patient was ordered IV Rocephin and azithromycin. Given the affirmation did speak the on-call hospitalist service Melinda Ham PA-C and the patient was admitted by Dr. Gaitan. Patient did have improvement in the patient's hypotension as well as lactate. Patient did receive 30 cc/kg bolus based on current body weight. Patient received a total of 2 L. Discussion w/ other healthcare providers: Melinda Ham PA-C and Dr. Gaitan Prior /Outside records reviewed: I reviewed part of a discharge summary from Chirag Mcnamara from April 19, 2025 patient with altered mental status generalized weakness ABEL and abnormal UA. Also known history of diabetes type 1 CKD stage IV 5 patient is mL A-fib status post left atrial appendage occluder device in March 2024 chronic diastolic heart failure meningioma s/p resection 2014 goiter cerebral amyloid angiopathy TIA cognitive impairment who presented for weakness and confusion at that time. Thought likely the patient's altered mental status is delirium in setting of suspected underlying dementia and dehydration also with a known history of mild cognitive impairment. Also physical deconditioning. Differential diagnosis: Infection, dehydration, metabolic abnormality, hypo/hyperglycemia, electrolyte imbalance, anemia, UTI, pneumonia, thyroid dysfunction among others were considered. Diagnostics, as interpreted by me: ECG: A-fib, rate of 78 normal QRS ration normal axis motion artifact noted T wave version V3 no obvious STEMI. Cardiac monitoring: An order was placed for continuous cardiac monitoring. The monitor shows a rate of 79 with irregular irregular rhythm. Patient was placed on pulse oximetry Medical decision rules: None Imaging studies: I informally interpreted the patient's chest x-ray shows concern for right lower lobe pneumonia with formal report to follow. HPI: Patient presents due to concern for reported syncope or altered mental status while in the shower per family. Patient Jeep arrival to arrival was in the 190s. Patient did have lower blood pressure unable to start a line and route. Limited history with the patient does have a history of some cognitive issues. No reported obvious trauma noted by EMS. Patient denies any head neck chest back or abdominal pain. She denies any nausea vomiting or cough. PAST MEDICAL HISTORY: See Below PAST SURGICAL HISTORY: See Below SOCIAL HISTORY: See Below HOME MEDICATIONS: See Below ALLERGIES: See Below VITALS: See Below PHYSICAL EXAMINATION: GENERAL: NAD, non-toxic. Head: Normocephalic atraumatic. No midline C-spine TTP. EYE EXAM: Normal conjunctiva. PERRL, no anisocoria and EOM's grossly intact w/o pain. OROPHARYNX: Dry mucus membranes, grossly normal dentition. NECK: Trachea midline, no stridor. LUNGS: Clear to auscultation. Normal chest wall mechanics. HEART: NS irregular irregular R, no MRG. ABDOMEN: Abdomen soft, non-tender, no masses, no rebound or guarding. BACK: No CVA TTP. SKIN: No rashes and no bruising. UPPER EXTREMITIES: Upper extremities are grossly normal. LOWER EXTREMITIES: Grossly normal, no edema. NEURO EXAM: Awake and alert, oriented to person, able to follow commands gross finger counting intact, follows commands, no obvious facial asymmetry, normal speech, moves all 4 extremities. Past Med/Surg History Problem List (Updated 06/28/25 @ 23:52 by Helder Ortiz MD) Pneumonia (Acute) Acute UTI (Acute) Syncope (Acute) Acute dehydration (Acute) Sepsis (Acute) Hypotension Syncope Abnormal urinalysis Delirium Acute dehydration (Acute) Anemia (Acute) ABEL (acute kidney injury) (Acute) Altered mental status (Acute) Memory changes Delirium due to multiple etiologies Anemia due to stage 4 chronic kidney disease Ambulatory dysfunction ABEL (acute kidney injury) Hyperkalemia Elevated troponin (Acute) Acute kidney injury superimposed on chronic kidney disease (Acute) Hypocalcemia (Acute) Acute hypokalemia (Acute) Acute confusion (Acute) Generalized weakness (Acute) Atrial fibrillation with controlled ventricular response Renal failure (ARF), acute on chronic Weakness COVID-19 virus infection (Acute) Medical History Acute kidney injury superimposed on CKD Cognitive impairment Acute metabolic encephalopathy Social History Smoking Status: Never smoker Second Hand Exposure: No; Do You Dip or Chew Tobacco: No; Hx Alcohol Use: No Hx Substance Use: No Preferred Language: Algerian Communication Ability: Effective Fire Control Technician B Required: No Beliefs That Will Affect Care: None Current Living Situation: Spouse Feels Safe at Home: Yes Assistive Devices: Walker and Wheelchair Allergies Allergies Allergy/AdvReac Type Severity Reaction Status Date / Time No Known Allergies Allergy Verified 07/06/24 18:47 Home Meds Home Medications Medication Instructions Recorded Confirmed aspirin 81 mg tablet,delayed 81 mg PO QAM 06/28/24 06/28/25 release atorvastatin 40 mg tablet 40 mg PO 06/28/24 06/28/25 ezetimibe 10 mg tablet 10 mg PO 06/28/24 06/28/25 insulin aspart U-100 100 unit/mL 0 sliding scale dose continuous 06/28/24 06/28/25 subcutaneous solution (Novolog subcutaneous infusion CONTINOUS U-100 Insulin aspart) sodium bicarbonate 650 mg tablet 1,300 mg PO BID 06/28/24 06/28/25 citalopram 10 mg tablet 15 mg PO DAILY 04/17/25 06/28/25 d-mannose 500 mg capsule 500 mg PO QAM 04/17/25 06/28/25 darbepoetin rosenda in polysorbat 25 25 mcg subcut UD 04/17/25 06/28/25 mcg/0.42 mL in polysorbate injection syringe (Aranesp) ascorbic acid (vitamin C) 500 mg 500 mg PO DAILY 06/28/25 06/28/25 tablet (Vitamin C) cholecalciferol (vitamin D3) 25 25 mcg PO DAILY 06/28/25 06/28/25 mcg (1,000 unit) tablet metoprolol succinate 100 mg 100 mg PO HS 06/28/25 06/28/25 tablet,extended release 24 hr nifedipine 30 mg tablet,extended 30 mg PO DAILY 06/28/25 06/28/25 release 24 hr Previous Rx's Medication Instructions Recorded ferrous sulfate 325 mg (65 mg 325 mg PO QAM #30 tabs 07/03/24 iron) tablet,delayed release folic acid 1 mg tablet 1 mg PO QAM #30 tabs 07/03/24 Results & Data (ED) Vital Signs Vital Signs - 24 hr 06/28/25 15:50 06/28/25 15:52 06/28/25 16:00 Temperature 35.3 C L Temperature Source Rectal Pulse Rate 67 Pulse Rate [Right Finger] 82 Pulse Rate from SpO2 Sensor 67 Respiratory Rate 22 19 Respiratory Effort / Characteristics Non-Labored Spontaneous Respiratory Depth Normal Respiratory Pattern Regular Blood Pressure 99/64 L Blood Pressure [Left Arm] 88/76 L Blood Pressure Mean 75 Blood Pressure Mean [Left Arm] 80 Pulse Oximetry 87 L 994 H 95 Oxygen Delivery Method Room Air Nasal Cannula Oxygen Flow Rate 4 3 Sepsis Recent Fever Within 48 Hours Sepsis New/Unexplained Change in Mental Status Sepsis Action Taken by Nursing 06/28/25 16:00 06/28/25 16:30 06/28/25 16:31 Temperature 34.9 C L Temperature Source Hewitt Cath ( Temp Sensing) Pulse Rate Pulse Rate [Right Finger] Pulse Rate from SpO2 Sensor Respiratory Rate Respiratory Effort / Characteristics Respiratory Depth Respiratory Pattern Blood Pressure 75/42 L Blood Pressure [Left Arm] Blood Pressure Mean 64 Blood Pressure Mean [Left Arm] Pulse Oximetry Oxygen Delivery Method Oxygen Flow Rate Sepsis Recent Fever Within 48 Hours No Sepsis New/Unexplained Change in Mental Status Yes Sepsis Action Taken by Nursing No Action Required 06/28/25 16:45 06/28/25 17:00 06/28/25 17:16 Temperature Temperature Source Pulse Rate 77 Pulse Rate [Right Finger] Pulse Rate from SpO2 Sensor 85 73 Respiratory Rate 22 20 Respiratory Effort / Characteristics Respiratory Depth Respiratory Pattern Blood Pressure 87/49 L 105/53 L 99/50 L Blood Pressure [Left Arm] Blood Pressure Mean 61 70 81 Blood Pressure Mean [Left Arm] Pulse Oximetry 91 71 L 99 Oxygen Delivery Method Oxygen Flow Rate 3 Sepsis Recent Fever Within 48 Hours Sepsis New/Unexplained Change in Mental Status Sepsis Action Taken by Nursing 06/28/25 17:30 06/28/25 17:33 06/28/25 18:00 Temperature 34.9 C L 35.3 C L Temperature Source Hewitt Cath ( Temp Sensing) Hewitt Cath ( Temp Sensing) Pulse Rate 94 H Pulse Rate [Right Finger] 82 Pulse Rate from SpO2 Sensor 87 Respiratory Rate 19 16 Respiratory Effort / Characteristics Respiratory Depth Respiratory Pattern Blood Pressure 114/77 Blood Pressure [Left Arm] 93/63 L Blood Pressure Mean 89 Blood Pressure Mean [Left Arm] 73 Pulse Oximetry 94 100 Oxygen Delivery Method Nasal Cannula Oxygen Flow Rate 3 Sepsis Recent Fever Within 48 Hours Sepsis New/Unexplained Change in Mental Status Sepsis Action Taken by Nursing 06/28/25 18:24 Temperature 35.3 C L Temperature Source Pulse Rate 74 Pulse Rate [Right Finger] Pulse Rate from SpO2 Sensor 80 Respiratory Rate 16 Respiratory Effort / Characteristics Respiratory Depth Respiratory Pattern Blood Pressure 107/6 L Blood Pressure [Left Arm] Blood Pressure Mean 39 Blood Pressure Mean [Left Arm] Pulse Oximetry 100 Oxygen Delivery Method Oxygen Flow Rate 3 Sepsis Recent Fever Within 48 Hours Sepsis New/Unexplained Change in Mental Status Sepsis Action Taken by Care Home Medications Current Medication List: was personally reviewed by me Laboratory Data Attestation: I reviewed the patient's lab results. 06/28/25 16:00 06/28/25 16:00 Lab Results 06/28/25 06/28/25 06/28/25 Range/Units 15:56 16:00 16:09 WBC 5.41 (4.8-10.8) K/ul RBC 3.21 L (4.20-5.40) M/uL Hgb 9.7 L (12.0-16.0) g/dl POC Hgb 10.2 L (12.0-16.0) g/dl Hct 31.2 L (37.0-47.0) % POC Hct 30 L (37-47) % MCV 97.2 (80.0-100.0) fL MCH 30.2 (25.0-34.0) pg MCHC 31.1 L (32.0-36.0) g/dL RDW Std Deviation 62.4 H (36.4-46.3) fL RDW Coeff of Sean 17.5 H (11.5-14.5) % Plt Count 175 (130-400) K/uL MPV 11.0 (9.4-12.4) fL Immature Gran % (Auto) 0.9 % Neut % (Auto) 63.6 % Lymph % (Auto) 24.4 % Norman % (Auto) 9.1 % Eos % (Auto) 0.9 % Baso % (Auto) 1.1 % Neut # (Auto) 3.44 (1.40-6.50) K/uL Lymph # (Auto) 1.32 (1.20-3.40) K/uL Norman # (Auto) 0.49 (0.11-0.59) K/uL Eos # (Auto) 0.05 (0.00-0.50) K/uL Baso # (Auto) 0.06 (0.00-0.20) K/uL Immature Gran # (Auto) 0.05 (0.01-0.20) K/uL PT 11.4 (9.0-12.0) Seconds INR 1.1 (0.9-1.1) APTT 25 (21-31) Seconds PTT Ratio 0.9 POC Sodium 142 (135-144) mmol/L Sodium 142 (136-145) mmol/L POC Potassium 4.3 (3.3-5.0) mmol/L Potassium 4.3 (3.5-5.1) mmol/L POC Chloride 105 (101-112) mmol/L Chloride 105 (98-107) mmol/L Carbon Dioxide 26 (21-32) mmol/L POC Total CO2 23 L (24-31) mmol/L Anion Gap 11 (3-11) POC Anion Gap 19.0 (16-25) mmol/L POC BUN 62 H (7-18) mg/dl BUN 76 H (6-23) mg/dl Creatinine 4.73 H* (0.6-1.2) mg/dl POC Creatinine 5.1 H* (0.6-1.3) mg/dl Est Cr Clr Drug Dosing Not Reportable eGFR 8.66 BUN/Creatinine Ratio 16.1 (10-20) Glucose 158 H (70-99(Fasting)) mg/dl POC Glucose 164 H (70-99) mg/dl POC Glucose (other) 154 H (70-99) mg/dl Lactate 2.8 H* (0.4-2.0) mmol/L Calcium 9.2 (8.6-10.3) mg/dl POC Ioniz Calcium Ryan 1.16 (1.12-1.32) mmol/l Magnesium 2.4 (1.7-2.4) mg/dl Total Bilirubin 0.6 (0.2-1.0) mg/dl Direct Bilirubin 0.2 (0-0.2) mg/dl AST 14 (13-39) U/L ALT 11 (7-52) U/L Alkaline Phosphatase 67 (34-104) U/L Troponin I High Sens 16.7 H (0-14) pg/ml Total Protein 6.6 (6.0-8.3) gm/dl Albumin 3.4 (3.4-5.0) gm/dl Procalcitonin 0.09 (0-0.5) ng/ml Urine Color Urine Appearance (Clear) Urine pH (4.5-7.5) Ur Specific [place] (1.000-1.030) Urine Protein (Negative) Urine Glucose (UA) (Negative) Urine Ketones (Negative) Urine Blood (Negative) Urine Nitrite (Negative) Urine Bilirubin (Negative) Urine Urobilinogen (Negative) Ur Leukocyte Esterase (Negative) Urine WBC (Auto) (0-5) /hpf Urine RBC (Auto) (0-2) /hpf U Hyaline Cast (Auto) (0-2) /lpf U Epithel Cells (Auto) (0-2) /hpf Urine Bacteria (Auto) (None Seen) Urine Comment 06/28/25 Range/Units 17:41 WBC (4.8-10.8) K/ul RBC (4.20-5.40) M/uL Hgb (12.0-16.0) g/dl POC Hgb (12.0-16.0) g/dl Hct (37.0-47.0) % POC Hct (37-47) % MCV (80.0-100.0) fL MCH (25.0-34.0) pg MCHC (32.0-36.0) g/dL RDW Std Deviation (36.4-46.3) fL RDW Coeff of Sean (11.5-14.5) % Plt Count (130-400) K/uL MPV (9.4-12.4) fL Immature Gran % (Auto) % Neut % (Auto) % Lymph % (Auto) % Norman % (Auto) % Eos % (Auto) % Baso % (Auto) % Neut # (Auto) (1.40-6.50) K/uL Lymph # (Auto) (1.20-3.40) K/uL Norman # (Auto) (0.11-0.59) K/uL Eos # (Auto) (0.00-0.50) K/uL Baso # (Auto) (0.00-0.20) K/uL Immature Gran # (Auto) (0.01-0.20) K/uL PT (9.0-12.0) Seconds INR (0.9-1.1) APTT (21-31) Seconds PTT Ratio POC Sodium (135-144) mmol/L Sodium (136-145) mmol/L POC Potassium (3.3-5.0) mmol/L Potassium (3.5-5.1) mmol/L POC Chloride (101-112) mmol/L Chloride (98-107) mmol/L Carbon Dioxide (21-32) mmol/L POC Total CO2 (24-31) mmol/L Anion Gap (3-11) POC Anion Gap (16-25) mmol/L POC BUN (7-18) mg/dl BUN (6-23) mg/dl Creatinine (0.6-1.2) mg/dl POC Creatinine (0.6-1.3) mg/dl Est Cr Clr Drug Dosing eGFR BUN/Creatinine Ratio (10-20) Glucose (70-99(Fasting)) mg/dl POC Glucose (70-99) mg/dl POC Glucose (other) (70-99) mg/dl Lactate (0.4-2.0) mmol/L Calcium (8.6-10.3) mg/dl POC Ioniz Calcium Ryan (1.12-1.32) mmol/l Magnesium (1.7-2.4) mg/dl Total Bilirubin (0.2-1.0) mg/dl Direct Bilirubin (0-0.2) mg/dl AST (13-39) U/L ALT (7-52) U/L Alkaline Phosphatase (34-104) U/L Troponin I High Sens (0-14) pg/ml Total Protein (6.0-8.3) gm/dl Albumin (3.4-5.0) gm/dl Procalcitonin (0-0.5) ng/ml Urine Color Yellow Urine Appearance Turbid A (Clear) Urine pH 8.0 H (4.5-7.5) Ur Specific [place] 1.016 (1.000-1.030) Urine Protein 3+ H (Negative) Urine Glucose (UA) Negative (Negative) Urine Ketones 1+ H (Negative) Urine Blood 3+ H (Negative) Urine Nitrite Negative (Negative) Urine Bilirubin Negative (Negative) Urine Urobilinogen Negative (Negative) Ur Leukocyte Esterase 3+ H (Negative) Urine WBC (Auto) >50 H (0-5) /hpf Urine RBC (Auto) >20 H (0-2) /hpf U Hyaline Cast (Auto) >20 H (0-2) /lpf U Epithel Cells (Auto) 3-5 H (0-2) /hpf Urine Bacteria (Auto) 4+ H (None Seen) Urine Comment Administered Medications Atorvastatin Calcium (Atorvastatin 40 Mg Tab) 40 mg PO HS [facility] Stop: 07/28/25 20:59 Last Admin: 06/28/25 22:01 Dose: 40 mg Documented By: VINOD Ezetimibe (Ezetimibe 10 Mg Tab) 10 mg PO HS [facility] Stop: 07/28/25 20:59 Last Admin: 06/28/25 22:01 Dose: 10 mg Documented By: VINOD Sodium Chloride (Nss) 500 mls @ 75 mls/hr IV .Q6H40M [facility] Stop: 06/29/25 00:54 Last Admin: 06/28/25 21:52 Dose: 75 mls/hr Documented By: VINOD Insulin Aspart (Insulin, Rapid-Acting Pump) 0 each N/A ACHS [facility]; Protocol Stop: 07/28/25 20:59 Last Admin: 06/28/25 22:55 Dose: Not Given Documented By: VINOD Metoprolol Succinate (Metoprolol Succ 50mg Ext Rel Tab) 100 mg PO HS [facility] Stop: 07/28/25 20:59 Last Admin: 06/28/25 22:02 Dose: 100 mg Documented By: VINOD Miscellaneous (Order Awaiting Action - Citalopram 10 Mg Tablet) 1 each N/A QS [facility] Stop: 07/29/25 00:00 Last Admin: 06/28/25 22:55 Dose: Not Given Documented By: VINOD Sodium Bicarbonate (Sodium Bicarbonate 650 Mg Tab) 1,300 mg PO BID [facility] Stop: 07/28/25 20:59 Last Admin: 06/28/25 22:02 Dose: 1,300 mg Documented By: VINOD Discontinued Medications Sodium Chloride (Nss) 1,000 mls @ 999 mls/hr IV .Q1H1M [facility] Stop: 06/28/25 17:15 Last Infusion: 06/28/25 18:16 Dose: Infused Documented By: Admin: 06/28/25 16:30 Dose: 999 mls/hr Documented By: MR Cefepime HCl (Maxipime 2000mg) 2,000 mg in 20 mls @ 5 mls/min IV NOW STA; Protocol Stop: 06/28/25 16:06 Last Admin: 06/28/25 16:30 Dose: 5 mls/min Documented By: MR Ceftriaxone Sodium (Rocephin) 2,000 mg in 50 mls @ 100 mls/hr IV NOW STA Stop: 06/28/25 17:48 Last Infusion: 06/28/25 20:45 Dose: Infused Documented By: Admin: 06/28/25 18:07 Dose: 100 mls/hr Documented By: MR Azithromycin (Zithromax) 500 mg in 255 mls @ 127.5 mls/hr IV NOW ONE Stop: 06/28/25 19:21 Last Infusion: 06/28/25 21:24 Dose: Infused Documented By: Admin: 06/28/25 19:19 Dose: 127.5 mls/hr Documented By: mls Sodium Chloride (Nss) 1,000 mls @ 999 mls/hr IV .Q1H1M ONE Stop: 06/28/25 18:22 Last Infusion: 06/28/25 20:45 Dose: Infused Documented By: Admin: 06/28/25 18:07 Dose: 999 mls/hr Documented By: Piperacillin Sod/Tazobactam Sod (Zosyn) 4.5 gm in 100 mls @ 25 mls/hr IV Q12H [facility]; Protocol Stop: 07/03/25 19:16 Last Admin: 06/28/25 22:54 Dose: Not Given Documented By: VINOD Piperacillin Sod/Tazobactam Sod (Zosyn) 4.5 gm in 100 mls @ 200 mls/hr IV ONE ONE; Protocol Stop: 06/28/25 20:29 Last Infusion: 06/28/25 22:55 Dose: Infused Documented By: Admin: 06/28/25 22:00 Dose: 200 mls/hr Documented By: VINOD Imaging Data Radiologist's Impression: Chest X-Ray 06/28/25 16:03 Clinical History: Sepsis Technique: 2 frontal views of the chest were obtained Comparison is made to the prior examination dated 04/20/2025 Findings: There is worsened diffuse interstitial prominence, concerning for pulmonary edema. There is more focal right lower lobe opacity that may be due to pneumonia. The heart is enlarged. No pleural effusion or pneumothorax is seen. No fracture is noted. No foreign body is seen Impression: 1. Suspected combination of pulmonary edema and right lower lobe pneumonia 2. Cardiomegaly ACT 112: Positive. There are findings on this exam that require communication between the performing entity and the patient following Patient Test Result Information Act ([place] ACT 112) guidelines. Electronically signed by Tripp Samano 06-28-2025 4:51 PM Discharge Plan Visit Data Chief Complaint: Altered Mental Status ED Provider: Helder Ortiz Discharge Problem: Sepsis, Acute dehydration, Syncope, Acute UTI, Pneumonia Patient Disposition: Admitted As Inpatient Condition: Fair Discharge Instructions Interventions: ED Discharge Assessment Last Done: 06/28/25 19:18 Discharge Problem: Sepsis Qualifiers: Sepsis type: sepsis due to unspecified organism Sepsis acute organ dysfunction status: with acute organ dysfunction Severe sepsis acute organ dysfunction type: acute respiratory failure Acute respiratory failure type: with hypoxia Severe sepsis shock status: without septic shock Qualified Code(s): A41.9 - Sepsis, unspecified organism; R65.20 - Severe sepsis without septic shock; J96.01 - Acute respiratory failure with hypoxia Syncope Qualifiers: Syncope type: unspecified Qualified Code(s): R55 - Syncope and collapse Pneumonia Qualifiers: Pneumonia type: due to unspecified organism Laterality: right Lung location: l ower lobe of lung Qualified Code(s): J18.9 - Pneumonia, unspecified organism
[2025-06-28 16:16] LABS: Hematocrit (blood only) 31.2 % (37.0-47.0); Hemoglobin 9.7 g/dl (12.0-16.0); Immature Granulocytes # (auto) 0.05 K/uL (0.01-0.20); Immature Granulocytes % (auto) 0.9 %; Mean Corpuscular Hemoglobin 30.2 pg (25.0-34.0); Mean Corpuscular Volume 97.2 fL (80.0-100.0); Platelet Count 175 K/uL (130-400); RDW Standard Deviation 62.4 fL (36.4-46.3); Red Blood Count 3.21 M/uL (4.20-5.40); White Blood Count 5.41 K/ul (4.8-10.8)
[2025-06-28] MEDS: CEFEPIME 2000MG 2,000 MG/20 ML SYR IV STA (16:30)
[2025-06-28] MEDS: SODIUM CHLORIDE 0.9% 1,000 ML IV SCH (16:30)
[2025-06-28 16:45] LABS: INR 1.1 (0.9-1.1); Partial Thromboplastin Time 25 Seconds (21-31); Prothrombin Time 11.4 Seconds (9.0-12.0)
[2025-06-28 16:46] LABS: Alanine Aminotransferase 11 U/L (7-52); Alkaline Phosphatase 67 U/L (34-104); Anion Gap 11 (3-11); Bilirubin,Total 0.6 mg/dl (0.2-1.0); Blood Urea Nitrogen 76 mg/dl (6-23); Calcium 9.2 mg/dl (8.6-10.3); Carbon Dioxide 26 mmol/L (21-32); Chloride 105 mmol/L (98-107); Glucose 158 mg/dl (70-99(Fasting)); Magnesium 2.4 mg/dl (1.7-2.4); Potassium 4.3 mmol/L (3.5-5.1); Sodium 142 mmol/L (136-145); Total Protein 6.6 gm/dl (6.0-8.3)
--- NOTE | 2025-06-28 16:52 | XRay Report ---
Clinical History: Sepsis Technique: 2 frontal views of the chest were obtained Comparison is made to the prior examination dated 04/20/2025 Findings: There is worsened diffuse interstitial prominence, concerning for pulmonary edema. There is more focal right lower lobe opacity that may be due to pneumonia. The heart is enlarged. No pleural effusion or pneumothorax is seen. No fracture is noted. No foreign body is seen Impression: 1. Suspected combination of pulmonary edema and right lower lobe pneumonia 2. Cardiomegaly ACT 112: Positive. There are findings on this exam that require communication between the performing entity and the patient following Patient Test Result Information Act ([place] ACT 112) guidelines. Electronically signed by Tripp Samano 06-28-2025 4:51 PM
--- NOTE | 2025-06-28 17:47 | History & Physical Report ---
Date of Service June 28, 2025 Assessment & Plan (1) Syncope: (2) Hypotension: Plan: #Possible PNA #Suspected UTI In ER patient found to be Hypotensive with BP 88/76, T: 35.3C rectal, P: 82, R: 22, 87% on room air increased to 94 percent on 4 L via nasal cannula In ER was placed on warming blanket, given 1L NSS. BP improved to 99/50. Another 1L NSS ordered in ER No leukocytosis, lactate: 2.8, procalcitonin: 0.09 BUN: 76, Cr: 4.7 (was 3.5 on 04/19/25, 4.2 on 04/17/25) UA possible UTI CXR: Suspected combination of pulmonary edema and right lower lobe pneumonia. Cardiomegaly Obtain CT head BP has improved after IVF. 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 Vaughn Not on dialysis BUN: 76, Cr: 4.7 (was 4 on 05/06/25, 3.5 on 04/19/25, 4.2 on 04/17/25) S/p 2L NSS in ED Continue sodium bicarb Nephrology consult #Chronic diastolic HF Was given 2L IVF in ER Closely monitor volume status #HTN Was hypotensive in ER Hold nifedipine for now #PAF #Cerebral amyloid angiopathy Not on any anticoagulants 2/2 h/o cerebral amyloid angiopathy per family S/p LAAO device placement in 03/2024 Current rate controlled afib Continue metoprolol with holding parameters #Type I DM A1c: 6.6 on 04/11/25 Patient on insulin pump and continuous glucose monitor; wants to continue to use insulin pump and continuous glucose monitor while inpatient. BSG check ACHS #Anemia of chronic disease Recently established w/ Martell heme On Aranesp Hgb: 9.7. Baseline 8's-9's Continue iron, folic acid supplements Continue H/H monitoring #History Mild cognitive impairment Previous trial of donepezil has been discontinued per secondary to side effects F/w neuropsych in [facility] --> recently diagnosed w/ this last year Currently resting in bed Monitor for delirium #History Generalized weakness Lives at home w/ . Has HH aide Possibly obtain PT/OT evals as able when appropriate. Last admission did not want SNF Fall precautions #HLD Continue Zetia, statin #Anxiety/depression Continue Celexa #Hyperthyroidism #H/o multinodular goiter F/w endocrinology in [facility] DVT Prophylaxis SCDs for now Admit PCU Full Code as per discussion with pt's at bedside. would consider pressors if needed also Follows with Dr Madden for routine care Pt was seen and care coordinated with Dr Madden. See addendum I spent a total of 70 minutes reviewing notes, outpatient records, labs, medication, coordinating, documenting and providing care for this patient exc luding time spent in the performance of separately billed services and excluding time spent by another provider/QHP. History of Present Illness Chief Complaint: Syncope Primary Care Provider: Cecilia Madden, Patient is 84 year old female with PMH CKD IV/V, DM I, anemia of chronic disease, PAF s/p left atrial appendage occluder device placement in March 2024, HTN, HLD, chronic diastolic HF, history of meningioma s/p resection in 2014, multinodular goiter, cerebral amyloid angiopathy, TIA, cognitive impairment presented to ER with c/o syncope in shower. Unable to obtain any history from patient secondary to mental status. Patient answers "No" to all questions. Per inpatient chart review recent hospitalization 04/17/2025-04/19/2025 for AMS, ABEL on CKD, Initially treated with Rocephin for UTI that was discontinued secondary to negative urine culture. AMS was thought secondary to metabolic encephalopathy, dehydration, delirium vs worsening dementia. Per patient's patient had syncopal episode in shower today. reports patient seemed more sedated recently and has had decreased oral intake. Per EMS was found to by hypotensive upon their arrival. In ER patient found to be Hypotensive with BP 88/76, T: 35.3C rectal, P: 82, R: 22, 87% on room air increased to 94 percent on 4 L via nasal cannula In ER was placed on warming blanket, given 1L NSS. BP improved to 99/50. Another 1L NSS ordered in ER Allergies Allergy/AdvReac Type Severity Reaction Status Date / Time No Known Allergies Allergy Verified 07/06/24 18:47 Home Medications Medication Instructions Recorded Confirmed Type aspirin 81 mg tablet,delayed 81 mg PO QAM 06/28/24 06/28/25 History release atorvastatin 40 mg tablet 40 mg PO HS 06/28/24 06/28/25 History ezetimibe 10 mg tablet 10 mg PO HS 06/28/24 06/28/25 History insulin aspart U-100 100 unit/mL 0 sliding scale dose continuous 06/28/24 06/28/25 History subcutaneous solution (Novolog subcutaneous infusion CONTINOUS U-100 Insulin aspart) sodium bicarbonate 650 mg tablet 1,300 mg PO BID 06/28/24 06/28/25 History ferrous sulfate 325 mg (65 mg 325 mg PO QAM #30 tabs 07/03/24 06/28/25 Rx iron) tablet,delayed release folic acid 1 mg tablet 1 mg PO QAM #30 tabs 07/03/24 06/28/25 Rx citalopram 10 mg tablet 15 mg PO DAILY 04/17/25 06/28/25 History d-mannose 500 mg capsule 500 mg PO QAM 04/17/25 06/28/25 History darbepoetin rosenda in polysorbat 25 25 mcg subcut UD 04/17/25 06/28/25 History mcg/0.42 mL in polysorbate injection syringe (Aranesp) ascorbic acid (vitamin C) 500 mg 500 mg PO DAILY 06/28/25 06/28/25 History tablet (Vitamin C) cholecalciferol (vitamin D3) 25 25 mcg PO DAILY 06/28/25 06/28/25 History mcg (1,000 unit) tablet metoprolol succinate 100 mg 100 mg PO HS 06/28/25 06/28/25 History tablet,extended release 24 hr nifedipine 30 mg tablet,extended 30 mg PO DAILY 06/28/25 06/28/25 History release 24 hr Past Med/Surg History Problem List (Updated 06/28/25 @ 18:49 by Melinda Doe PA-C) Hypotension Syncope Abnormal urinalysis Delirium Acute dehydration (Acute) Anemia (Acute) ABEL (acute kidney injury) (Acute) Altered mental status (Acute) Memory changes Delirium due to multiple etiologies Anemia due to stage 4 chronic kidney disease Ambulatory dysfunction ABEL (acute kidney injury) Hyperkalemia Elevated troponin (Acute) Acute kidney injury superimposed on chronic kidney disease (Acute) Hypocalcemia (Acute) Acute hypokalemia (Acute) Acute confusion (Acute) Generalized weakness (Acute) Atrial fibrillation with controlled ventricular response Renal failure (ARF), acute on chronic Weakness COVID-19 virus infection (Acute) Medical History Acute kidney injury superimposed on CKD Cognitive impairment Acute metabolic encephalopathy Social History Smoking Status: Unknown if ever smoked Second Hand Exposure: No; Do You Dip or Chew Tobacco: No; Hx Alcohol Use: No Hx Substance Use: No Preferred Language: Lao Communication Ability: Effective Weapons Engineer Required: No Beliefs That Will Affect Care: None Current Living Situation: Spouse Feels Safe at Home: Yes Assistive Devices: Cane and Walker Review of Systems Review of Systems: Unobtainable due to cognitive status Physical Exam Physical Exam: General: in no apparent distress lying in position on right side in bed. Thin elderly female Head: normocephalic, atraumatic Eyes: PERRL, conjunctiva non-injected, anicteric ENT: normal inspection external ears, nose, mucous membranes dry Neck: supple, trachea midline Lungs: clear, no respiratory distress on O2 via NC with O2 sat 94%, poor inspiratory effort and diminished breath sounds but no wheezing/rhonchi/rales noted CV: irregularly irregular, rate 78, no pretibial edema Abd: normal BS, soft, no apparent tenderness to palpation Ext: no cyanosis, no calf tenderness, +scattered ecchymosis Neuro: Awakens to voice. Answers "No" to all questions and unable to further assess. Unwilling to follow commands Skin: warm, dry Results & Data Results & Data Vital Signs (Past 12 Hours) Vital Signs Temp Pulse Pulse Resp BP BP Pulse Ox 06/28/25 16:45 87/49 L 91 06/28/25 16:31 75/42 L 06/28/25 16:00 67 19 99/64 L 95 06/28/25 15:52 994 H 06/28/25 15:50 35.3 C L 82 22 88/76 L 87 L O2 Del Method O2 Flow Rate 06/28/25 16:45 3 06/28/25 16:31 06/28/25 16:00 3 06/28/25 15:52 Nasal Cannula 4 06/28/25 15:50 Room Air Laboratory Results Short CBC 06/28/25 Range/Units 16:00 WBC 5.41 (4.8-10.8) K/ul Hgb 9.7 L (12.0-16.0) g/dl Hct 31.2 L (37.0-47.0) % Plt Count 175 (130-400) K/uL BMP 06/28/25 16:00 Sodium 142 Potassium 4.3 Chloride 105 Carbon Dioxide 26 BUN 76 H Creatinine 4.73 H* Glucose 158 H Calcium 9.2 Liver Function 06/28/25 Range/Units 16:00 Total Bilirubin 0.6 (0.2-1.0) mg/dl Direct Bilirubin 0.2 (0-0.2) mg/dl AST 14 (13-39) U/L ALT 11 (7-52) U/L Alkaline Phosphatase 67 (34-104) U/L Albumin 3.4 (3.4-5.0) gm/dl Diagnostic Findings Chest X-Ray 06/28/25 16:03 Clinical History: Sepsis Technique: 2 frontal views of the chest were obtained Comparison is made to the prior examination dated 04/20/2025 Findings: There is worsened diffuse interstitial prominence, concerning for pulmonary edema. There is more focal right lower lobe opacity that may be due to pneumonia. The heart is enlarged. No pleural effusion or pneumothorax is seen. No fracture is noted. No foreign body is seen Impression: 1. Suspected combination of pulmonary edema and right lower lobe pneumonia 2. Cardiomegaly ACT 112: Positive. There are findings on this exam that require communication between the performing entity and the patient following Patient Test Result Information Act ([place] ACT 112) guidelines. Electronically signed by Tripp Samano 06-28-2025 4:51 PM ECG Additional Comments: atrial fibrillation, rate 78 Supervising Physician Co-Signing Physician Notes Patient seen and examined independently. Discussed with above provider. Patient was brought to the hospital after a syncopal episode at home. She was found to be hypothermic, hypotensive. Chest x-ray shows right lower lobe pneumonia, possible pulm edema. She was also found to have ABEL on CKD. She was given IV fluids with improvement in blood pressure, lactic acid. Urinalysis is also suspicious for UTI. Plan to continue antibiotic, consult nephrology for comanagement. Follow-up on culture results. CODE STATUS discussed with ; wants her to be full code. Patient is on insulin pump; does not feel comfortable using subcu insulin during the hospitalization and wants to use insulin pump similar to last admission. I discussed risks associated with it; he verbalized understanding but would like to continue to use insulin pump and managed himself. I have reviewed the advanced practitioner's documentation, and I agree with, and take responsibility for the plan of care I spent a total of 30 minutes coordinating, documenting, and providing care for this patient excluding time spent in the performance of separately billed services. All of the aforementioned completed while collaborating with the assigned advanced practitioner for a full treatment plan
[2025-06-28] MEDS: cefTRIAXone SODIUM 2,000 MG/50 ML BAG IV STA (18:07)
[2025-06-28] MEDS: SODIUM CHLORIDE 0.9% 1,000 ML IV ONE (18:07)
[2025-06-28 18:33] LABS: Appearance Urine Turbid (Clear); Bacteria Urine Automated 4+ (None Seen); Cast Urine Automated >20 /lpf (0-2); Glucose Urine UA Negative (Negative); RBC Urine Automated >20 /hpf (0-2); WBC Urine Automated >50 /hpf (0-5)
[2025-06-28] MEDS ORDERED: DEXTROSE 50% 50 ML SYRINGE IV PRN (19:17)
[2025-06-28] MEDS ORDERED: ACETAMINOPHEN 325 MG TAB PO PRN (19:17)
[2025-06-28] MEDS ORDERED: CARBOHYDRATES FOR HYPOGLYCEMIA PO PRN (19:17)
[2025-06-28] MEDS ORDERED: POLYETHYLENE (MIRALAX) 17 GM PACK PO PRN (19:17)
[2025-06-28] MEDS ORDERED: GLUCAGON FOR INJ 1 MG VIAL SQ PRN (19:17)
[2025-06-28] MEDS ORDERED: MAGNESIUM HYDROXIDE SUSP 30 ML UDC PO PRN (19:17)
[2025-06-28] MEDS ORDERED: GLUCOSE 40% GEL 15 GM TUBE PO PRN (19:17)
[2025-06-28] MEDS ORDERED: INSULIN ASPART PER UNIT CHARGE SC SCH (19:17)
[2025-06-28] MEDS ORDERED: ONDANSETRON INJ 2 MG/ML 2 ML VIAL IV PRN (19:17)
[2025-06-28] MEDS ORDERED: GLUCOSE 10 TAB/TUBE PO PRN (19:17)
[2025-06-28] MEDS: AZITHROMYCIN 500 MG/255 ML BAG IV ONE (19:19)
--- NOTE | 2025-06-28 19:24 | CT Scan Report ---
Clinical History: Syncope Technique: Axial computed tomography images were obtained of the brain without intravenous contrast. Comparison is made to the prior CT dated 04/17/2035 Findings: There is unchanged cerebral atrophy, within expected limits for the patient's age. Areas of decreased attenuation are seen within the periventricular white matter, likely representing chronic small vessel ischemic disease. 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 There is also a suspected old left parietal lobe infarct There is no definite sign of acute infarction. No intracranial hemorrhage is evident. No definite mass lesion is seen on this noncontrast examination. There is no midline shift or other form of herniation. No hydrocephalus is seen. No fracture is identified. The orbits and the visualized paranasal sinuses appear unremarkable. The mastoid air cells appear clear. Impression: 1. Cerebral atrophy, old infarcts, and chronic small vessel ischemic disease 2. No definite acute pathology Electronically signed by Tripp Samano 06-28-2025 7:23 PM
[2025-06-28] MEDS: SODIUM CHLORIDE 0.9% 500 ML IV SCH (21:52)
[2025-06-28] MEDS: PIPERACILLIN/TAZOBACTAM 4.5 GM/100 ML BAG IV ONE (22:00)
[2025-06-28] MEDS: EZETIMIBE 10 MG TAB PO SCH (22:01)
[2025-06-28] MEDS: ATORVASTATIN 40 MG TAB PO SCH (22:01)
[2025-06-28] MEDS: METOPROLOL SUCC 50MG EXT REL TAB PO SCH (22:02)
[2025-06-28] MEDS: SODIUM BICARBONATE 650 MG TAB PO SCH (22:02)
[2025-06-28] MEDS: PIPERACILLIN/TAZOBACTAM 4.5 GM/100 ML BAG IV SCH (22:54)
[2025-06-28] MEDS: INSULIN, Rapid-Acting PUMP SCH (22:55)
--- NOTE | 2025-06-29 05:43 | Electrocardiogram Report ---
Test Reason : Blood Pressure : */* mmHG Vent. Rate : 78 BPM Atrial Rate : * BPM P-R Int : * ms QRS Dur : 72 ms QT Int : 448 ms P-R-T Axes : * -21 -54 degrees QTcB Int : 510 ms Atrial fibrillation Nonspecific T wave abnormality Prolonged QT Abnormal ECG When compared with ECG of 17-Apr-2025 12:46, T wave inversion now evident in Anterior leads Confirmed by Awais Anthony ([id number]) on 06/29/2025 5:43:26 AM Referred By: Confirmed By: Awais Anthony
[2025-06-29] MEDS: PIPERACILLIN/TAZOBACTAM 4.5 GM/100 ML BAG IV SCH (06:17)
[2025-06-29 06:34] LABS: Hematocrit (blood only) 27.0 % (37.0-47.0); Hemoglobin 8.5 g/dl (12.0-16.0); Mean Corpuscular Hemoglobin 30.4 pg (25.0-34.0); Mean Corpuscular Volume 96.4 fL (80.0-100.0); Platelet Count 139 K/uL (130-400); RDW Standard Deviation 62.3 fL (36.4-46.3); Red Blood Count 2.80 M/uL (4.20-5.40); White Blood Count 5.03 K/ul (4.8-10.8)
[2025-06-29 06:59] LABS: Anion Gap 11.0 (3-11); Blood Urea Nitrogen 66.0 mg/dl (6-23); Calcium 8.5 mg/dl (8.6-10.3); Carbon Dioxide 22.0 mmol/L (21-32); Chloride 109.0 mmol/L (98-107); Creatinine Clr Calc Pharmacy 8.0 ml/min; Glucose 121.0 mg/dl (70-99(Fasting)); Potassium 4.2 mmol/L (3.5-5.1); Sodium 142.0 mmol/L (136-145)
[2025-06-29] MEDS: DOXYCYCLINE HYCLATE 100 MG in DEXTROSE 5% MINI-B 100 ML IV SCH (10:09)
[2025-06-29] MEDS: ASPIRIN 81 MG ECTAB PO SCH (10:09)
[2025-06-29] MEDS: CHOLECALCIFEROL 25 MCG (1000 UNITS) TAB PO SCH (10:10)
[2025-06-29] MEDS: ASCORBIC ACID 500 MG TAB PO SCH (10:10)
[2025-06-29] MEDS: FOLIC ACID 1 MG TAB PO SCH (10:10)
[2025-06-29] MEDS: FERROUS SULFATE 325 MG TAB PO SCH (10:10)
[2025-06-29] MEDS: INSULIN ASPART 100 UNITS/ML VIAL SC PRN (13:49)
--- NOTE | 2025-06-29 14:59 | Hospitalist Progress Note ---
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 Likely secondary to Withdrawal from Rivastigmine-Typically occurs 3-7 days after stopping the med abruptly Minimal twitching involving the hands and feet thia AM and full blown tonic clonic at around 4 PM Appreciate Neurology input and recommendation Given Ativan 2 mg IV stat and Will be given Dilantin 250mg IV loading dose and 100 mg IV q8h from tomorrow Stat EEG The family members have already applied the Rivastigmine patcc (2) Hypotension: Plan: #Possible PNA- involving right lower lobe UTI has been ruled out In ER patient found to be Hypotensive with BP 88/76, T: 35.3C rectal, P: 82, R: 22, 87% on room air increased to 94 percent on 4 L via nasal cannula In ER was placed on warming blanket, given 1L NSS. BP improved to 99/50. Another 1L NSS ordered in ER No leukocytosis, lactate: 2.8, procalcitonin: 0.09 BUN: 76, Cr: 4.7 (was 3.5 on 04/19/25, 4.2 on 04/17/25) UA possible UTI CXR: Suspected combination of pulmonary edema and right lower lobe pneumonia. Cardiomegaly Obtain CT head -showed cerebral atrophy, old infarcts and chronic small vessel ischemic disease BP has improved Repeat lactate: 1.9 Urine culture-has been negative Blood culture pending Will continue Zosyn, doxycycline No fever no chills and white count is not elevated #ABEL superimposed on CKD stage [facility]V [facility] BUN: 76, Cr: 4.7 (was 4 on 05/06/25, 3.5 on 04/19/25, 4.2 on 04/17/25) S/p 2L NSS in ED Continue sodium bicarb Nephrology consult- awaited #History Mild cognitive impairment Previous trial of donepezil has been discontinued per secondary to side effects F/w neuropsych in [facility] --> recently diagnosed w/ this last year Currently resting in bed Monitor for delirium #Chronic diastolic HF Was given 2L IVF in ER Closely monitor volume status No signs of volume overload Will give cautious amount of IVF #HTN Was hypotensive in ER Hold nifedipine for now Blood pressure remains elevated and will add Norvasc 2.5 mg and continue beta- melody #PAF #Cerebral amyloid angiopathy Not on any anticoagulants 2/2 h/o cerebral amyloid angiopathy per family S/p LAAO device placement in 03/2024 Current rate controlled afib Continue metoprolol with holding parameters #Type I DM A1c: 6.6 on 04/11/25 Patient on insulin pump and continuous glucose monitor; wants to continue to use insulin pump and continuous glucose monitor while inpatient. BSG check ACHS #Anemia of chronic disease Recently established w/ [facility] heme On Aranesp Hgb: 9.7. Baseline 8's-9's Continue iron, folic acid supplements Continue H/H monitoring #History Generalized weakness Lives at home w/ . Has HH aide Possibly obtain PT/OT evals as able when appropriate. Last admission did not want SNF Fall precautions #HLD Continue Zetia, statin #Anxiety/depression Continue Celexa #Hyperthyroidism #H/o multinodular goiter F/w endocrinology in [facility] DVT Prophylaxis SCDs for now Admit PCU Full Code as per discussion with pt's at bedside. would consider pressors if needed also Follows with Dr Madden for routine care Admission and Anticipated Discharge Date Admission Date: June 28, 2025 Subjective 06/29/2025 The patient was seen and examined in telemetry unit in presence of the Patient remains minimally verbal and was brought in with syncope while in shower Noted to have twitching involving the extremities Does not have any significant distress at rest Review of Systems Review of Systems: Unobtainable due to cognitive status Physical Exam Physical Exam: Lying in bed with twitching involving the extremities but no other distress Constitutional: + ill appearing and average body habitus Eyes: PERRL, conjunctivae normal, anicteric sclerae ENMT: external ear and nose normal, oropharynx normal Neck: trachea midline, no thyromegaly Respiratory: no respiratory distress Auscultation: lungs clear to auscultation bilaterally Cardiovascular: Rate/Rhythm: + tachycardic and + irregularly irregular Heart Sounds: normal S1 and normal S2; no murmur Extremities: no edema Gastrointestinal (Abdomen): Inspection/Auscultation: normal bowel sounds; abdomen not distended Percussion/Palpation: abdomen soft; abdomen nontender Musculoskeletal: No acute arthritis involving any of the joint Neurologic: Alert and awake. Minimal movements of the extremities with commands. Not following verbal commands normally. No facial asymmetry and no eye deviation, minimal twitching involving the extremities Lymphatic: no cervical or axillary lymphadenopathy Results & Data Results & Data Vital Signs (Past 12 Hours) Vital Signs Temp Pulse Resp BP Pulse Ox O2 Del Method O2 Flow Rate 06/29/25 12:40 37.0 C 103 H 17 172/107 H 90 Room Air 06/29/25 07:53 36.8 C 94 H 16 161/92 H 90 Nasal Cannula 2 06/29/25 03:08 36.9 C 90 16 115/65 94 Nasal Cannula Laboratory Results Short CBC 06/28/25 06/29/25 Range/Units 16:00 06:01 WBC 5.41 5.03 (4.8-10.8) K/ul Hgb 9.7 L 8.5 L (12.0-16.0) g/dl Hct 31.2 L 27.0 L (37.0-47.0) % Plt Count 175 139 (130-400) K/uL BMP 06/28/25 06/29/25 16:00 06:01 Sodium 142 142 Potassium 4.3 4.2 Chloride 105 109 H Carbon Dioxide 26 22 BUN 76 H 66 H Creatinine 4.73 H* 4.22 H D Glucose 158 H 121 H Calcium 9.2 8.5 L Liver Function 06/28/25 Range/Units 16:00 Total Bilirubin 0.6 (0.2-1.0) mg/dl Direct Bilirubin 0.2 (0-0.2) mg/dl AST 14 (13-39) U/L ALT 11 (7-52) U/L Alkaline Phosphatase 67 (34-104) U/L Albumin 3.4 (3.4-5.0) gm/dl Urine 06/28/25 Range/Units 17:41 Urine Color Yellow Urine Appearance Turbid A (Clear) Urine pH 8.0 H (4.5-7.5) Ur Specific [place] 1.016 (1.000-1.030) Urine Protein 3+ H (Negative) Urine Glucose (UA) Negative (Negative) Medications Administered Current Inpatient Medications Acetaminophen (Acetaminophen 325 Mg Tab) 650 mg PO Q4H PRN PRN Reason: Pain or Fever Stop: 07/28/25 19:16 Amlodipine Besylate (Amlodipine Besylate 5 Mg Tab) 2.5 mg PO [facility] Stop: 07/29/25 13:44 Ascorbic Acid (Ascorbic Acid 500 Mg Tab) 500 mg PO DAILY [facility] Stop: 07/29/25 08:59 Last Admin: 06/29/25 10:10 Dose: 500 mg Aspirin (Aspirin 81 Mg Ectab) 81 mg PO [facility] Stop: 07/29/25 08:59 Last Admin: 06/29/25 10:09 Dose: 81 mg Atorvastatin Calcium (Atorvastatin 40 Mg Tab) 40 mg PO [facility] Stop: 07/28/25 20:59 Last Admin: 06/28/25 22:01 Dose: 40 mg Dextrose (Dextrose 50% 50 Ml Syringe) 25 - 50 ml IV UD PRN; Protocol PRN Reason: Hypoglycemia Protocol Stop: 07/28/25 19:16 Ezetimibe (Ezetimibe 10 Mg Tab) 10 mg PO [facility] Stop: 07/28/25 20:59 Last Admin: 06/28/25 22:01 Dose: 10 mg Ferrous Sulfate (Ferrous Sulfate 325 Mg Tab) 325 mg PO [facility] Stop: 07/29/25 08:59 Last Admin: 06/29/25 10:10 Dose: 325 mg Folic Acid (Folic Acid 1 Mg Tab) 1 mg PO [facility] Stop: 07/29/25 08:59 Last Admin: 06/29/25 10:10 Dose: 1 mg Glucagon (Glucagon For Inj 1 Mg Vial) 1 mg SQ UD PRN; Protocol PRN Reason: Hypoglycemia Protocol Stop: 07/28/25 19:16 Glucose (Glucose 40% Gel 15 Gm Tube) 15 - 30 gm PO UD PRN; Protocol PRN Reason: Hypoglycemia Protocol Stop: 07/28/25 19:16 Glucose (Glucose 10 Tab/Tube) 4 - 8 tab PO UD PRN; Protocol PRN Reason: Hypoglycemia Protocol Stop: 07/28/25 19:16 Doxycycline Hyclate 100 mg/ (Dextrose) 100 mls @ 50 mls/hr IV Q12H [facility] Stop: 07/04/25 08:59 Last Infusion: 06/29/25 13:00 Dose: Infused Piperacillin Sod/Tazobactam Sod (Zosyn) 4.5 gm in 100 mls @ 25 mls/hr IV Q12H [facility]; Protocol Stop: 07/04/25 05:59 Last Infusion: 06/29/25 10:53 Dose: Infused Insulin Aspart (Insulin, Rapid-Acting Pump) 0 each N/A ACHS [facility]; Protocol Stop: 07/28/25 20:59 Last Admin: 06/29/25 13:48 Dose: 1.8 each Insulin Aspart (Insulin Aspart 100 Units/Ml Vial) 0 units SC PRN PRN PRN Reason: Pump Refill Use ONLY Stop: 07/28/25 20:14 Last Admin: 06/29/25 13:49 Dose: 1.8 units Magnesium Hydroxide (Magnesium Hydroxide Susp 30 Ml Udc) 30 ml PO Q12H PRN PRN Reason: Constipation Stop: 07/28/25 19:16 Metoprolol Succinate (Metoprolol Succ 50mg Ext Rel Tab) 100 mg PO HS [facility] Stop: 07/28/25 20:59 Last Admin: 06/28/25 22:02 Dose: 100 mg Miscellaneous (Carbohydrates For Hypoglycemia ) 15 - 30 gm PO UD PRN PRN Reason: Hypoglycemia Protocol Stop: 07/28/25 19:16 Miscellaneous (Order Awaiting Action - Citalopram 10 Mg Tablet) 1 each N/A QS [facility] Stop: 07/29/25 00:00 Last Admin: 06/29/25 09:53 Dose: Not Given Ondansetron HCl (Ondansetron Inj 2 Mg/Ml 2 Ml Vial) 4 mg IV Q6H PRN PRN Reason: Nausea Stop: 07/28/25 19:16 Polyethylene Glycol (Polyethylene (Miralax) 17 Gm Pack) 17 gm PO DAILY PRN PRN Reason: Constipation Stop: 07/28/25 19:16 Sodium Bicarbonate (Sodium Bicarbonate 650 Mg Tab) 1,300 mg PO BID [facility] Stop: 07/28/25 20:59 Last Admin: 06/29/25 10:09 Dose: 1,300 mg Vitamin D (Cholecalciferol 25 Mcg (1000 Units) Tab) 25 mcg PO DAILY [facility] Stop: 07/29/25 08:59 Last Admin: 06/29/25 10:10 Dose: 25 mcg
[2025-06-29] MEDS ORDERED: 0.2 MICRON FILTER SET 1 EACH IV ONE (16:21)
[2025-06-29] MEDS ORDERED: PHENYTOIN SOD INJ 50 MG/ML 5 ML VIAL IV ONE (16:22)
[2025-06-29] MEDS: D5W AND NSS 1,000 ML IV SCH (17:35)
--- NOTE | 2025-06-29 17:54 | Neurology Consultation ---
Date of Consultation June 29, 2025 Assessment & Plan (1) Acute metabolic encephalopathy: With possible superimposed seizures as per clinic. Changes. Recommend Ativan 2 mg IV stat. Plan Loaded with phenytoin 15 mg/kg and start phenytoin 100 mg 3 times daily Ativan 2 mg IV as needed for seizures. Seizure precautions. Continue to treat pneumonia/UTI. Avoid antibiotics that lowers seizure threshold such as cefepime or ciprofloxacin Stat EEG. An MRI would be warranted when the patient is stable. Telehealth Consultation Telehealth Information Telehealth Information: I performed this visit using a real-time telehealth connection between my location and the patients location ([facility]). After connecting through interactive tele-video, patient was identified by name and date of and/or wristband check.Patient (or authorized healthcare marketing development representative) was informed that this was a telemedicine visit and it was being conducted confidentially over secure lines. My office door was closed and no one else was present in the room with me.Patient (or authorized healthcare marketing development representative) provided consent to proceed with the visit, expressed an understanding of privacy and security of the telemedicine visit, and gave permission to have a hospital marketing development representative in the room in order to assist with the visit and to conduct portions of the visit, as needed. I informed the patient (or authorized healthcare marketing development representative) that I reviewed their record and presented the opportunity for them to ask any questions regarding the visit today. The patient agreed to participate. History of Present Illness Reason for Consultation: AMS, possible seizures Requesting Physician: Stephan Mcduffie MD Attending Physician: Stephan Mcduffie MD History of Present Illness 84-year-old female patient with PMH of left frontal tremor s/p resection history of seizures not currently on seizure medications also history of dementia, history of encephalopathy with, A-fib not on any oral anticoagulations due to amyloid angiopathy. The patient was brought to the hospital after an episode of unresponsiveness in the shower shortly after the shower was started, admitted yesterday was found to be hypotensive and felt to have UTI and pneumonia currently being treated with Zosyn and doxycycline. Today was noted to have worsening tremors or shaking events affecting the right upper and lower extremity with decreased responsiveness towards the afternoon where the patient was not following commands, with worsening rigidity versus stiffening, and jerking movements with the right upper and lower extremity. Upon my evaluation the patient was awake, looking around, not particularly following commands, have more movements with the right upper and lower extremity than the left. Would not open her mouth due to her stiff jaw. The patient's provided most of the history. He had stopped her rivastigmine patch according to the her neurologist's advice to see how she has been doing however he restarted it today. The patient herself could not provide much history. Allergies Allergy/AdvReac Type Severity Reaction Status Date / Time No Known Allergies Allergy Verified 07/06/24 18:47 Home Medications Medication Instructions Recorded Confirmed Type aspirin 81 mg tablet,delayed 81 mg PO QAM 06/28/24 06/28/25 History release atorvastatin 40 mg tablet 40 mg PO HS 06/28/24 06/28/25 History ezetimibe 10 mg tablet 10 mg PO HS 06/28/24 06/28/25 History insulin aspart U-100 100 unit/mL 0 sliding scale dose continuous 06/28/24 06/28/25 History subcutaneous solution (Novolog subcutaneous infusion CONTINOUS U-100 Insulin aspart) sodium bicarbonate 650 mg tablet 1,300 mg PO BID 06/28/24 06/28/25 History ferrous sulfate 325 mg (65 mg 325 mg PO QAM #30 tabs 07/03/24 06/28/25 Rx iron) tablet,delayed release folic acid 1 mg tablet 1 mg PO QAM #30 tabs 07/03/24 06/28/25 Rx citalopram 10 mg tablet 15 mg PO DAILY 04/17/25 06/28/25 History d-mannose 500 mg capsule 500 mg PO QAM 04/17/25 06/28/25 History darbepoetin rosenda in polysorbat 25 25 mcg subcut UD 04/17/25 06/28/25 History mcg/0.42 mL in polysorbate injection syringe (Aranesp) ascorbic acid (vitamin C) 500 mg 500 mg PO DAILY 06/28/25 06/28/25 History tablet (Vitamin C) cholecalciferol (vitamin D3) 25 25 mcg PO DAILY 06/28/25 06/28/25 History mcg (1,000 unit) tablet metoprolol succinate 100 mg 100 mg PO HS 06/28/25 06/28/25 History tablet,extended release 24 hr nifedipine 30 mg tablet,extended 30 mg PO DAILY 06/28/25 06/28/25 History release 24 hr Patient History Medical History Acute kidney injury superimposed on CKD Cognitive impairment Acute metabolic encephalopathy Social History Smoking Status: Never smoker Second Hand Exposure: No; Do You Dip or Chew Tobacco: No; Hx Alcohol Use: No Hx Substance Use: No Preferred Language: Nauruan Communication Ability: Effective New Car Make Ready Mechanic Required: No Beliefs That Will Affect Care: None Current Living Situation: Spouse Feels Safe at Home: Yes Assistive Devices: Walker and Wheelchair Review of Systems Could not be obtained Physical Exam Awake eyes open, attempts to follow commands, looks around, did not stick her tongue out, did not squeeze hands, she had stiffening of her jaw. She had twitching movements of her right upper and lower extremities, occasional twitching movements with her left upper and lower extremities. Was moving all extremities symmetrically, withdrawing from painful stimulation. Did not appear to be in respiratory distress Results & Data Vital Signs (Past 12 Hours) Vital Signs Temp Pulse Resp BP Pulse Ox O2 Del Method O2 Flow Rate 06/29/25 16:03 158/91 H 06/29/25 15:35 36.6 C 100 H 20 163/101 H 96 Nasal Cannula 2 06/29/25 12:40 37.0 C 103 H 17 172/107 H 90 Room Air 06/29/25 07:53 36.8 C 94 H 16 161/92 H 90 Nasal Cannula 2 Laboratory Results Laboratory Results - last 24 hr 06/28/25 06/28/25 06/29/25 17:41 18:46 06:01 WBC 5.03 RBC 2.80 L Hgb 8.5 L Hct 27.0 L MCV 96.4 MCH 30.4 MCHC 31.5 L RDW Std Deviation 62.3 H RDW Coeff of Sean 17.4 H Plt Count 139 MPV 10.9 Sodium 142 Potassium 4.2 Chloride 109 H Carbon Dioxide 22 Anion Gap 11 BUN 66 H Creatinine 4.22 H D Est Cr Clr Drug Dosing 8.0 eGFR 9.93 BUN/Creatinine Ratio 15.6 Glucose 121 H POC Glucose Lactate 1.9 Calcium 8.5 L Urine Color Yellow Urine Appearance Turbid A Urine pH 8.0 H Ur Specific [place] 1.016 Urine Protein 3+ H Urine Glucose (UA) Negative Urine Ketones 1+ H Urine Blood 3+ H Urine Nitrite Negative Urine Bilirubin Negative Urine Urobilinogen Negative Ur Leukocyte Esterase 3+ H Urine WBC (Auto) >50 H Urine RBC (Auto) >20 H U Hyaline Cast (Auto) >20 H U Epithel Cells (Auto) 3-5 H Urine Bacteria (Auto) 4+ H Urine Comment 06/29/25 06/29/25 06/29/25 07:55 13:14 16:48 WBC RBC Hgb Hct MCV MCH MCHC RDW Std Deviation RDW Coeff of Sean Plt Count MPV Sodium Potassium Chloride Carbon Dioxide Anion Gap BUN Creatinine Est Cr Clr Drug Dosing eGFR BUN/Creatinine Ratio Glucose POC Glucose 168 H 191 H 164 H Lactate Calcium Urine Color Urine Appearance Urine pH Ur Specific [place] Urine Protein Urine Glucose (UA) Urine Ketones Urine Blood Urine Nitrite Urine Bilirubin Urine Urobilinogen Ur Leukocyte Esterase Urine WBC (Auto) Urine RBC (Auto) U Hyaline Cast (Auto) U Epithel Cells (Auto) Urine Bacteria (Auto) Urine Comment Diagnostic Findings Head CT 06/28/25 18:31 Clinical History: Syncope Technique: Axial computed tomography images were obtained of the brain without intravenous contrast. Comparison is made to the prior CT dated 04/17/2035 Findings: There is unchanged cerebral atrophy, within expected limits for the patient's age. Areas of decreased attenuation are seen within the periventricular white matter, likely representing chronic small vessel ischemic disease. 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 There is also a suspected old left parietal lobe infarct There is no definite sign of acute infarction. No intracranial hemorrhage is evident. No definite mass lesion is seen on this noncontrast examination. There is no midline shift or other form of herniation. No hydrocephalus is seen. No fracture is identified. The orbits and the visualized paranasal sinuses appear unremarkable. The mastoid air cells appear clear. Impression: 1. Cerebral atrophy, old infarcts, and chronic small vessel ischemic disease 2. No definite acute pathology Electronically signed by Tripp Samano 06-28-2025 7:23 PM Medications Administered Home Medications Medication Instructions Recorded Confirmed Last Taken aspirin 81 mg tablet,delayed 81 mg PO QAM 06/28/24 06/28/25 07/06/24 release atorvastatin 40 mg tablet 40 mg PO HS 06/28/24 06/28/25 07/06/24 ezetimibe 10 mg tablet 10 mg PO HS 06/28/24 06/28/25 07/06/24 insulin aspart U-100 100 unit/mL 0 sliding scale dose continuous 06/28/24 06/28/25 07/06/24 subcutaneous solution (Novolog subcutaneous infusion CONTINOUS U-100 Insulin aspart) sodium bicarbonate 650 mg tablet 1,300 mg PO BID 06/28/24 06/28/25 07/06/24 ferrous sulfate 325 mg (65 mg 325 mg PO QAM #30 tabs 07/03/24 06/28/25 07/06/24 iron) tablet,delayed release folic acid 1 mg tablet 1 mg PO QAM #30 tabs 07/03/24 06/28/25 07/06/24 citalopram 10 mg tablet 15 mg PO DAILY 04/17/25 06/28/25 Unknown d-mannose 500 mg capsule 500 mg PO QAM 04/17/25 06/28/25 Unknown darbepoetin rosenda in polysorbat 25 25 mcg subcut UD 04/17/25 06/28/25 Unknown mcg/0.42 mL in polysorbate injection syringe (Aranesp) ascorbic acid (vitamin C) 500 mg 500 mg PO DAILY 06/28/25 06/28/25 Unknown tablet (Vitamin C) cholecalciferol (vitamin D3) 25 25 mcg PO DAILY 06/28/25 06/28/25 Unknown mcg (1,000 unit) tablet metoprolol succinate 100 mg 100 mg PO HS 06/28/25 06/28/25 Unknown tablet,extended release 24 hr nifedipine 30 mg tablet,extended 30 mg PO DAILY 06/28/25 06/28/25 Unknown release 24 hr Active Medications Generic Name Dose Route Start Last Admin Trade Name Gageq PRN Reason Stop Dose Admin Amlodipine Besylate 2.5 mg 06/29/25 13:45 06/29/25 15:27 Amlodipine Besylate 5 Mg Tab PO 07/29/25 13:44 Not Given QAM REMEDIOS Ascorbic Acid 500 mg 06/29/25 09:00 06/29/25 10:10 Ascorbic Acid 500 Mg Tab PO 07/29/25 08:59 500 mg DAILY REMEDIOS Administration Aspirin 81 mg 06/29/25 09:00 06/29/25 10:09 Aspirin 81 Mg Ectab PO 07/29/25 08:59 81 mg QAM [facility] Administration Atorvastatin Calcium 40 mg 06/28/25 21:00 06/28/25 22:01 Atorvastatin 40 Mg Tab PO 07/28/25 20:59 40 mg HS REMEDIOS Administration Ezetimibe 10 mg 06/28/25 21:00 06/28/25 22:01 Ezetimibe 10 Mg Tab PO 07/28/25 20:59 10 mg HS REMEDIOS Administration Ferrous Sulfate 325 mg 06/29/25 09:00 06/29/25 10:10 Ferrous Sulfate 325 Mg Tab PO 07/29/25 08:59 325 mg QAM REMEDIOS Administration Folic Acid 1 mg 06/29/25 09:00 06/29/25 10:10 Folic Acid 1 Mg Tab PO 07/29/25 08:59 1 mg QAM REMEDIOS Administration Doxycycline Hyclate 100 mg/ 100 mls @ 50 mls/hr 06/29/25 09:00 06/29/25 13:00 Dextrose IV 07/04/25 08:59 Infused Q12H REMEDIOS Infusion Piperacillin Sod/Tazobactam Sod 4.5 gm in 100 mls @ 25 mls/hr 06/29/25 06:00 06/29/25 17:33 Zosyn IV 07/04/25 05:59 25 mls/hr Q12H REMEDIOS Administration Protocol Dextrose/Sodium Chloride 1,000 mls @ 50 mls/hr 06/29/25 16:30 06/29/25 17:35 D5w And Nss IV 07/02/25 16:29 50 mls/hr .Q20H REMEDIOS Administration Insulin Aspart 0 each 06/28/25 21:00 06/29/25 17:44 Insulin, Rapid-Acting Pump N/A 07/28/25 20:59 0.5 each ACHS REMEDIOS Administration Protocol Insulin Aspart 0 units 06/28/25 20:15 06/29/25 17:44 Insulin Aspart 100 Units/Ml Vial SC 07/28/25 20:14 0.5 units PRN PRN Administration Pump Refill Use ONLY Metoprolol Succinate 100 mg 06/28/25 21:00 06/28/25 22:02 Metoprolol Succ 50mg Ext Rel Tab PO 07/28/25 20:59 100 mg HS REMEDIOS Administration Miscellaneous 1 each 06/29/25 00:00 06/29/25 17:32 Order Awaiting Action - Citalopram 10 Mg Tablet N/A 07/29/25 00:00 Not Given QS REMEDIOS Sodium Bicarbonate 1,300 mg 06/28/25 21:00 06/29/25 10:09 Sodium Bicarbonate 650 Mg Tab PO 07/28/25 20:59 1,300 mg BID REMEDIOS Administration Vitamin D 25 mcg 06/29/25 09:00 06/29/25 10:10 Cholecalciferol 25 Mcg (1000 Units) Tab PO 07/29/25 08:59 25 mcg DAILY REMEDIOS Administration
[2025-06-29] MEDS: PHENYTOIN IV ONE (18:24)
[2025-06-29] MEDS: SODIUM CHLORIDE 0.9% 10ML FLUSH IV STA (18:25)
[2025-06-30] MEDS: LABETALOL HCL IV 5 MG/ML 20ML IV STA (00:50)
[2025-06-30 09:07] LABS: Hematocrit (blood only) 28.5 % (37.0-47.0); Hemoglobin 8.8 g/dl (12.0-16.0); Immature Granulocytes # (auto) 0.04 K/uL (0.01-0.20); Immature Granulocytes % (auto) 0.7 %; Mean Corpuscular Hemoglobin 30.3 pg (25.0-34.0); Mean Corpuscular Volume 98.3 fL (80.0-100.0); Platelet Count 122 K/uL (130-400); RDW Standard Deviation 63.7 fL (36.4-46.3); Red Blood Count 2.90 M/uL (4.20-5.40); White Blood Count 5.67 K/ul (4.8-10.8)
[2025-06-30 09:38] LABS: Anion Gap 8.0 (3-11); Blood Urea Nitrogen 61.0 mg/dl (6-23); Calcium 8.8 mg/dl (8.6-10.3); Carbon Dioxide 25.0 mmol/L (21-32); Chloride 111.0 mmol/L (98-107); Creatinine Clr Calc Pharmacy 7.4 ml/min; Glucose 154.0 mg/dl (70-99(Fasting)); Magnesium 2.1 mg/dl (1.7-2.4); Potassium 4.3 mmol/L (3.5-5.1); Sodium 144.0 mmol/L (136-145)
--- NOTE | 2025-06-30 14:09 | Hospitalist Progress Note ---
Date of Service June 30, 2025 Assessment & Plan (1) Syncope: Plan: Presented with syncopal episode while in shower Has been having decreased responsiveness and movements for the last 3 days Has been off a patch for 3 days for her neurologic condition which has been ascribed to get the name from the neurologist She was noted to have twitching involving the extremities She does not have any arrhythmias and monitor her blood pressure remains on the lower side She has been almost bedbound for the last 3 days and usually ambulating with walker and assist Neurology consultation has been requested Remains semiresponsive and hemodynamically stable Appreciate neurology input and recommendation 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 Likely secondary to Withdrawal from Rivastigmine-Typically occurs 3-7 days after stopping the med abruptly Minimal twitching involving the hands and feet thia AM and full blown tonic clonic at around 4 PM Appreciate Neurology input and recommendation Given Ativan 2 mg IV stat and Will be given Dilantin 250mg IV loading dose and 100 mg IV q8h from tomorrow The family members have already applied the Rivastigmine patch Still has minimal twitching involving the extremities but no more tonic-clonic seizures as of yesterday Awaiting EEG report and continuing Dilantin 100 mg 3 times daily IV The family is contacting the neurologist about rivastigmine whether to continue or to discontinue Has been having a little more twitching and will get a CTH without contrast and give 1 mg IV ativan Speech therapy evaluation Remains n.p.o. and will continue mouth care for now Speech therapy will reevaluate with further recommendation (2) Hypotension: Plan: #Possible PNA- involving right lower lobe UTI has been ruled out In ER patient found to be Hypotensive with BP 88/76, T: 35.3C rectal, P: 82, R: 22, 87% on room air increased to 94 percent on 4 L via nasal cannula In ER was placed on warming blanket, given 1L NSS. BP improved to 99/50. Another 1L NSS ordered in ER No leukocytosis, lactate: 2.8, procalcitonin: 0.09 BUN: 76, Cr: 4.7 (was 3.5 on 04/19/25, 4.2 on 04/17/25) UA possible UTI CXR: Suspected combination of pulmonary edema and right lower lobe pneumonia. 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 Vaughn Not on dialysis BUN: 76, Cr: 4.7 (was 4 on 05/06/25, 3.5 on 04/19/25, 4.2 on 04/17/25) S/p 2L NSS in ED Continue sodium bicarb Nephrology consult- awaited #History Mild cognitive impairment Previous trial of donepezil has been discontinued per secondary to side effects F/w neuropsych in [facility] --> recently diagnosed w/ this last year Currently resting in bed Monitor for delirium #Chronic diastolic HF Was given 2L IVF in ER Closely monitor volume status No signs of volume overload Will give cautious amount of IVF #HTN Was hypotensive in ER Hold nifedipine for now Blood pressure remains elevated and will add Norvasc 2.5 mg and continue beta- melody Received a dose of labetalol last night due to high blood pressure Remains stable this morning #PAF #Cerebral amyloid angiopathy Not on any anticoagulants 2/2 h/o cerebral amyloid angiopathy per family S/p LAAO device placement in 03/2024 Current rate controlled afib Continue metoprolol with holding parameters #Type I DM A1c: 6.6 on 04/11/25 Patient on insulin pump and continuous glucose monitor; wants to continue to use insulin pump and continuous glucose monitor while inpatient. BSG check ACHS #Anemia of chronic disease [facility] On Aranesp Hgb: 9.7. Baseline 8's-9's Continue iron, folic acid supplements Continue H/H monitoring #History Generalized weakness Lives at home w/ . Has HH aide Possibly obtain PT/OT evals as able when appropriate. Last admission did not want SNF Fall precautions #HLD Continue Zetia, statin #Anxiety/depression Continue Celexa #Hyperthyroidism #H/o multinodular goiter F/w endocrinology in [facility] DVT Prophylaxis SCDs for now Admit PCU Full Code as per discussion with pt's at bedside. would consider pressors if needed also Follows with Dr Madden for routine care Admission and Anticipated Discharge Date Admission Date: June 28, 2025 Subjective 06/29/2025 The patient was seen and examined in telemetry unit in presence of the Patient remains minimally verbal and was brought in with syncope while in shower Noted to have twitching involving the extremities Does not have any significant distress at rest 06/30/2025 The patient was seen and examined in telemetry unit in presence of the She has been sleepy since last evening following administration of Ativan for seizures She has had minimal responsive to vocal commands and did talk to the nursing personnel last night Was not arousable during examination but remained hemodynamically stable Discussed with the in detail Review of Systems Review of Systems: Unobtainable due to reduced consciousness Physical Exam Physical Exam: Lying in bed with minimal twitching involving the extremities without any tonic-clonic activities Constitutional: + ill appearing and average body habitus Eyes: PERRL, conjunctivae normal, anicteric sclerae ENMT: external ear and nose normal, oropharynx normal Neck: trachea midline, no thyromegaly Respiratory: no respiratory distress Auscultation: lungs clear to ausculta tion bilaterally Cardiovascular: Rate/Rhythm: + tachycardic and + irregularly irregular Heart Sounds: normal S1 and normal S2; no murmur Extremities: no edema Gastrointestinal (Abdomen): Inspection/Auscultation: normal bowel sounds; abdomen not distended Percussion/Palpation: abdomen soft; abdomen nontender Neurologic: Minimally alert with verbal stimuli but not been communicating. Minimal twitching involving the extremities Lymphatic: no cervical or axillary lymphadenopathy Results & Data Results & Data Vital Signs (Past 12 Hours) Vital Signs Temp Pulse Pulse Resp BP Pulse Ox O2 Del Method 06/30/25 11:22 36.4 C L 93 H 18 150/90 H 92 Nasal Cannula 06/30/25 08:00 79 06/30/25 08:00 Nasal Cannula 06/30/25 07:15 36.2 C L 82 19 155/86 H 97 Nasal Cannula 06/30/25 03:57 36.3 C L 81 14 156/100 H 97 Nasal Cannula O2 Flow Rate 06/30/25 11:22 1 06/30/25 08:00 06/30/25 08:00 2 06/30/25 07:15 2 06/30/25 03:57 2 Laboratory Results Short CBC 08/31/25 Range/Units 08:39 WBC 5.67 (4.8-10.8) K/ul Hgb 8.8 L (12.0-16.0) g/dl Hct 28.5 L (37.0-47.0) % Plt Count 122 L (130-400) K/uL [facility] 06/30/25 08:39 Sodium 144 Potassium 4.3 Chloride 111 H Carbon Dioxide 25 BUN 61 H Creatinine 4.58 H* D Glucose 154 H Calcium 8.8 Medications Administered Current Inpatient Medications Acetaminophen (Acetaminophen 325 Mg Tab) 650 mg PO Q4H PRN PRN Reason: Pain or Fever Stop: 07/28/25 19:16 Amlodipine Besylate (Amlodipine Besylate 5 Mg Tab) 2.5 mg PO [facility] Stop: 07/29/25 13:44 Last Admin: 06/30/25 11:00 Dose: Not Given Ascorbic Acid (Ascorbic Acid 500 Mg Tab) 500 mg PO DAILY REMEDIOS Stop: 07/29/25 08:59 Last Admin: 06/30/25 11:00 Dose: Not Given Aspirin (Aspirin 81 Mg Ectab) [facility] [place] Stop: 07/29/25 08:59 Last Admin: 06/30/25 11:00 Dose: Not Given Atorvastatin Calcium (Atorvastatin 40 Mg Tab) 40 mg PO HS [facility] Stop: 07/28/25 20:59 Last Admin: 06/29/25 20:08 Dose: Not Given Dextrose (Dextrose 50% 50 Ml Syringe) 25 - 50 ml IV UD PRN; Protocol PRN Reason: Hypoglycemia Protocol Stop: 07/28/25 19:16 Ezetimibe (Ezetimibe 10 Mg Tab) 10 mg PO [facility] Stop: 07/28/25 20:59 Last Admin: 06/29/25 20:08 Dose: Not Given Ferrous Sulfate (Ferrous Sulfate 325 Mg Tab) 325 mg [facility] [place] Stop: 07/29/25 08:59 Last Admin: 06/30/25 11:00 Dose: Not Given Folic Acid (Folic Acid 1 Mg Tab) 1 mg PO QAM [facility] Stop: 07/29/25 08:59 Last Admin: 06/30/25 11:00 Dose: Not Given Glucagon (Glucagon For Inj 1 Mg Vial) 1 mg SQ UD PRN; Protocol PRN Reason: Hypoglycemia Protocol Stop: 07/28/25 19:16 Glucose (Glucose 40% Gel 15 Gm Tube) 15 - 30 gm PO UD PRN; Protocol PRN Reason: Hypoglycemia Protocol Stop: 07/28/25 19:16 Glucose (Glucose 10 Tab/Tube) 4 - 8 tab PO UD PRN; Protocol PRN Reason: Hypoglycemia Protocol Stop: 07/28/25 19:16 Doxycycline Hyclate 100 mg/ (Dextrose) 100 mls @ 50 mls/hr IV Q12H REMEDIOS Stop: 07/04/25 08:59 Last Infusion: 06/30/25 12:14 Dose: Infused Piperacillin Sod/Tazobactam Sod (Zosyn) 4.5 gm in 100 mls @ 25 mls/hr IV Q12H REMEDIOS; Protocol Stop: 07/04/25 05:59 Last Infusion: 06/30/25 11:19 Dose: Infused Dextrose/Sodium Chloride (D5w And Nss) 1,000 mls @ 50 mls/hr IV .Q20H REMEDIOS Stop: 07/02/25 16:29 Last Admin: 06/29/25 17:35 Dose: 50 mls/hr Insulin Aspart (Insulin, Rapid-Acting Pump) 0 each N/A ACHS REMEDIOS; Protocol Stop: 07/28/25 20:59 Last Admin: 06/30/25 11:13 Dose: 1.45 each Insulin Aspart (Insulin Aspart 100 Units/Ml Vial) 0 units SC PRN PRN PRN Reason: Pump Refill Use ONLY Stop: 07/28/25 20:14 Last Admin: 06/30/25 11:13 Dose: 1.45 units Magnesium Hydroxide (Magnesium Hydroxide Susp 30 Ml Udc) 30 ml PO Q12H PRN PRN Reason: Constipation Stop: 07/28/25 19:16 Metoprolol Succinate (Metoprolol Succ 50mg Ext Rel Tab) 100 mg PO HS REMEDIOS Stop: 07/28/25 20:59 Last Admin: 06/29/25 20:08 Dose: Not Given Miscellaneous (Carbohydrates For Hypoglycemia ) 15 - 30 gm PO UD PRN PRN Reason: Hypoglycemia Protocol Stop: 07/28/25 19:16 Miscellaneous (Order Awaiting Action - Citalopram 10 Mg Tablet) 1 each N/A QS REMEDIOS Stop: 07/29/25 00:00 Last Admin: 06/30/25 11:00 Dose: Not Given Ondansetron HCl (Ondansetron Inj 2 Mg/Ml 2 Ml Vial) 4 mg IV Q6H PRN PRN Reason: Nausea Stop: 07/28/25 19:16 Polyethylene Glycol (Polyethylene (Miralax) 17 Gm Pack) 17 gm PO DAILY PRN PRN Reason: Constipation Stop: 07/28/25 19:16 Sodium Bicarbonate (Sodium Bicarbonate 650 Mg Tab) 1,300 mg PO BID REMEDIOS Stop: 07/28/25 20:59 Last Admin: 06/30/25 11:00 Dose: Not Given Vitamin D (Cholecalciferol 25 Mcg (1000 Units) Tab) 25 mcg PO DAILY REMEDIOS Stop: 07/29/25 08:59 Last Admin: 06/30/25 11:00 Dose: Not Given
--- NOTE | 2025-06-30 15:19 | Nephrology Consultation ---
Date of Consultation June 30, 2025 Assessment & Plan (1) Acute kidney injury superimposed on stage 5 chronic kidney disease, not on chronic dialysis: -She is mostly advanced CKD stage 4 approaching stage 5; baseline labile but mid 3's She wants to do home dialysis/ PD ( back and forth between [facility] and [place] , she has a Metallurgical [employer] Materials Technician in [place] and as per she saw him last September,. She also follows w/ Dr Simon F/w nephro at both [facility] and Dr. Johana Moura -abel Likely 2/ Prerenal/ ATN/ Could be progression of her CKD -At the moment She is making urine and electrolytes are safe, There is no urgent need for dialysis - no more IV fluids, - Continue sodium bicarb She was hypotensive in ER, however her blood pressure is now creeoing up - Restart home nifedipine ( from today)and increase Norvac to 5 mg (from tmrw) (2) Diastolic heart failure: Was given 2L IVF in ER Closely monitor volume status No signs of volume overload Fluid bolus to keep SBP > 100 if needed (3) Anemia: Recently established w/ Martell heme On Aranesp Hgb: 8.8. Baseline 8's-9's Continue iron, folic acid supplements Continue H/H monitoring (4) Pneumonia: (5) Syncope: (6) Altered mental status: History of Present Illness Attending Physician: Stephan Mcduffie MD History of Present Illness Patient was brought to the hospital after a syncopal episode , as per she had been less responsive over the last few days w/ poor oral intake, In ER she was found to be hypothermic, hypotensive w/ twitching of her extremities. She was Rivastigime patch before as as per she was off it for 3 days before the ER visit. She was found to have ABEL on CKD( Cr 4.5,, baseline in mid 3.0 as per last Nephrology notes on [facility]. CXR showed suspected combination of pulmonary edema and right lower lobe pneumonia w/ Cardiomegaly CT head -showed cerebral atrophy, old infarcts and chronic small vessel ischemic disease.She was given IV fluids with improvement in blood pressure, lactic acid. Urinalysis was also suspicious for UTI. Yesterday she had a seizure and was given ativan, She is being followed by Neurology, BP is acceptable, She is passing urine, Electrolytes are safe. She is mostly advanced CKD stage 4 approaching stage 5; baseline labile but mid 3's She wants to do home dialysis/ PD ( back and forth [facility] and [place] , she has a Metallurgical [employer] Materials Technician in [place] and as per she saw him lasr September,. She also follows w/ Dr Simon Allergies Allergy/AdvReac Type Severity Reaction Status Date / Time No Known Allergies Allergy Verified 07/06/24 18:47 Home Medications Medication Instructions Recorded Confirmed Type aspirin 81 mg tablet,delayed 81 mg PO QAM 06/28/24 06/28/25 History release atorvastatin 40 mg tablet 40 mg PO HS 06/28/24 06/28/25 History ezetimibe 10 mg tablet 10 mg PO HS 06/28/24 06/28/25 History insulin aspart U-100 100 unit/mL 0 sliding scale dose continuous 06/28/24 06/28/25 History subcutaneous solution (Novolog subcutaneous infusion CONTINOUS U-100 Insulin aspart) sodium bicarbonate 650 mg tablet 1,300 mg PO BID 06/28/24 06/28/25 History ferrous sulfate 325 mg (65 mg 325 mg PO QAM #30 tabs 07/03/24 06/28/25 Rx iron) tablet,delayed release folic acid 1 mg tablet 1 mg PO QAM #30 tabs 07/03/24 06/28/25 Rx citalopram 10 mg tablet 15 mg PO DAILY 04/17/25 06/28/25 History d-mannose 500 mg capsule 500 mg PO QAM 04/17/25 06/28/25 History darbepoetin rosenda in polysorbat 25 25 mcg subcut UD 04/17/25 06/28/25 History mcg/0.42 mL in polysorbate injection syringe (Aranesp) ascorbic acid (vitamin C) 500 mg 500 mg PO DAILY 06/28/25 06/28/25 History tablet (Vitamin C) cholecalciferol (vitamin D3) 25 25 mcg PO DAILY 06/28/25 06/28/25 History mcg (1,000 unit) tablet metoprolol succinate 100 mg 100 mg PO HS 06/28/25 06/28/25 History tablet,extended release 24 hr nifedipine 30 mg tablet,extended 30 mg PO DAILY 06/28/25 06/28/25 History release 24 hr Patient History Medical History Acute kidney injury superimposed on CKD Cognitive impairment Acute metabolic encephalopathy Social History Smoking Status: Never smoker Second Hand Exposure: No; Do You Dip or Chew Tobacco: No; Hx Alcohol Use: No Hx Substance Use: No Preferred Language: Senegalese Communication Ability: Effective Ms Sql Developer Required: No Beliefs That Will Affect Care: None Current Living Situation: Spouse Feels Safe at Home: Yes Assistive Devices: Walker and Wheelchair Review of Systems 2 Review of Systems: Unobtainable due to cognitive status Physical Exam 2 Physical Exam: + ill appearing and Cachetic,Somlonant no respiratory distress Auscultation: lungs clear to auscultation bilaterally Rate/Rhythm: + tachycardic and + irregularly irregular Heart Sounds: normal S1 and normal S2; no murmur Extremities: no edema Results & Data Vital Signs (Past 12 Hours) Vital Signs Temp Pulse Pulse Resp BP Pulse Ox O2 Del Method 06/30/25 11:22 36.4 C L 93 H 18 150/90 H 92 Nasal Cannula 06/30/25 08:00 79 06/30/25 08:00 Nasal Cannula 06/30/25 07:15 36.2 C L 82 19 155/86 H 97 Nasal Cannula 06/30/25 03:57 36.3 C L 81 14 156/100 H 97 Nasal Cannula O2 Flow Rate 06/30/25 11:22 1 06/30/25 08:00 06/30/25 08:00 2 06/30/25 07:15 2 06/30/25 03:57 2 Laboratory Results 06/30/25 08:39 06/30/25 08:39 (3) Anemia Anemia type: unspecified type Qualified Code(s): D64.9 - Anemia, unspecified (4) Pneumonia Laterality: right Lung location: lower lobe of lung Pneumonia type: due to unspecified organism Qualified Code(s): J18.9 - Pneumonia, unspecified organism (5) Syncope Syncope type: unspecified Qualified Code(s): R55 - Syncope and collapse (6) Altered mental status Altered mental status type: unspecified Qualified Code(s): R41.82 - Altered mental status, unspecified
--- NOTE | 2025-06-30 19:27 | CT Scan Report ---
HISTORY: Trauma. TECHNIQUE: CT of the head without contrast. Images are presented in axial, sagittal, and coronal reformats. COMPARISON: Head CT dated06/08/2025. FINDINGS: No acute intracranial hemorrhage, abnormal extra-axial fluid collection, mass effect, or midline shift. Stable left frontal encephalomalacia. Stable left parietal encephalomalacia. Moderate chronic microvascular ischemic changes. Mild diffuse volume loss. Intracranial atherosclerotic vascular calcifications are noted. Ventricular caliber is appropriate. Fourth ventricle is midline. Basal cisterns are patent.Ibarra-white differentiation is maintained. Globes and orbits are unremarkable.Soft tissues about the skull base and scalp are unremarkable.Paranasal sinuses and mastoid air cells are clear. Left frontal craniotomy changes. No acute calvarial fracture. IMPRESSION: * No acute intracranial findings. * Stable left frontal encephalomalacia with overlying craniotomy changes. Stable left parietal encephalomalacia, which may represent sequelae of prior infarct. * Moderate volume loss and chronic microvascular ischemic changes. ACT 112: Positive. There are findings on this exam that require communication between the performing entity and the patient following Patient Test Result Information Act ([place] ACT 112) guidelines. Electronically signed by Martin Salinas 06-30-2025 7:27 PM
[2025-07-01] MEDS: METOPROLOL TARTRATE 1 MG/ML VIAL IV SCH (00:10)
[2025-07-01 06:01] LABS: Hematocrit (blood only) 29.4 % (37.0-47.0); Hemoglobin 9.1 g/dl (12.0-16.0); Immature Granulocytes # (auto) 0.05 K/uL (0.01-0.20); Immature Granulocytes % (auto) 0.7 %; Mean Corpuscular Hemoglobin 30.3 pg (25.0-34.0); Mean Corpuscular Volume 98.0 fL (80.0-100.0); Platelet Count 129 K/uL (130-400); RDW Standard Deviation 63.6 fL (36.4-46.3); Red Blood Count 3.00 M/uL (4.20-5.40); White Blood Count 6.67 K/ul (4.8-10.8)
[2025-07-01 06:26] LABS: Alanine Aminotransferase 8.0 U/L (7-52); Albumin Globulin Ratio 1.1 (0.9-2); Alkaline Phosphatase 45.0 U/L (34-104); Anion Gap 9.0 (3-11); Bilirubin,Total 0.5 mg/dl (0.2-1.0); Blood Urea Nitrogen 57.0 mg/dl (6-23); Calcium 9.0 mg/dl (8.6-10.3); Carbon Dioxide 23.0 mmol/L (21-32); Chloride 113.0 mmol/L (98-107); Creatinine Clr Calc Pharmacy 7.0 ml/min; Globulin 2.7 gm/dl (2.5-4.0); Glucose 135.0 mg/dl (70-99(Fasting)); Magnesium 2.0 mg/dl (1.7-2.4); Potassium 4.3 mmol/L (3.5-5.1); Sodium 145.0 mmol/L (136-145); Total Protein 5.7 gm/dl (6.0-8.3)
[2025-07-01] MEDS: FOLIC ACID 1 MG in SYRINGE 9.8 ML IV SCH (09:42)
--- NOTE | 2025-07-01 12:21 | XRay Report ---
EXAM: Radiograph of the Abdomen 1 View INDICATION: 2 placement TECHNIQUE: Frontal supine view of the abdomen/pelvis. COMPARISON: No relevant prior studies available. FINDINGS: Limitations: None. Lower thorax: Small bilateral pleural effusions and basilar airspace consolidation present left greater than right. Large heart. Cardiac device projects inferior to the left mainstem bronchus. Gastrointestinal tract: Air scattered throughout non-dilated intestinal loops. Organs: Visualized organ shadows appear grossly normal. Bones/joints: No fracture, erosion or dislocation. Soft tissues: No abnormality noted. No radiopaque foreign body noted. Tubes, lines and devices: Radiopaque tip of the feeding tube terminates in the gastric body. IMPRESSION: 1. Radiopaque tip of the feeding tube terminates in the gastric body. 2. Bilateral basilar airspace consolidation and pleural effusions left greater than right. ACT 112: N/A Electronically signed by Brenda Melissa 07-01-2025 12:21 PM
[2025-07-01] MEDS: FUROSEMIDE INJ 20 MG/2 ML VIAL IV ONE (12:32)
--- NOTE | 2025-07-01 13:50 | Nephrology Progress Note ---
Date of Service July 01, 2025 Assessment & Plan (1) Acute kidney injury superimposed on stage 5 chronic kidney disease, not on chronic dialysis: Plan: -She is mostly advanced CKD stage 4 approaching stage 5; baseline labile but mid 3's She wants to do home dialysis/ PD ( back and forth between [facility] and [place] , she has a Scarrer in [place] and as per she saw him last September,. She also follows w/ Dr Simon F/w nephro at both [facility] and Dr. Johana Moura -ABEL i Likely 2/ Prerenal/ ATN/ Could be progression of her CKD -At the moment She is making urine, although this is tailing off, electrolytes are safe,Likely Uremia could be contributing to her present mental state.Results of EEG is awaited.She wants to do PD which would not be ideal in present situation-- not sure of HD at the moment - no more IV fluids, - Continue sodium bicarb She was hypotensive in ER, however her blood pressure is now creeping up - she is very somlonant, can be tricky to give oral anti HTN-- Keep on PRN labetolol/ Hydralazine w/ 20 mg iV lasix daiy-- Target BP 140/90 (2) Diastolic heart failure: Plan: Was given 2L IVF in ER Closely monitor volume status No signs of volume overload Fluid bolus to keep SBP > 100 if needed (3) Anemia: Plan: Recently established w/ Martell heme On Aranesp Baseline 8's-9's Continue iron, folic acid supplements Continue H/H monitoring (4) Pneumonia: (5) Syncope: (6) Altered mental status: Admission and Anticipated Discharge Date Admission Date: June 28, 2025 Subjective The patient was seen and examined in presence of the She has been very somlonanent after Ativan She has had minimal responsive to vocal commands Was not arousable during examination but remained hemodynamically stable Review of Systems 2 Review of Systems: Unobtainable due to cognitive status Physical Exam 2 Physical Exam: + ill appearing and Cachetic,Somlonant no respiratory distress Auscultation: lungs clear to auscultation bilaterally Rate/Rhythm: + tachycardic Heart Sounds: normal S1 and normal S2 Extremities: no edema Results & Data Vital Signs (Past 12 Hours) Vital Signs Temp Pulse Pulse Resp BP BP BP 09/01/25 13:10 159/82 H 07/01/25 07:37 07/01/25 07:00 36.1 C L 101 H 14 155/105 H 07/01/25 05:48 109 H 135/79 07/01/25 05:33 105 H 165/98 H 07/01/25 04:18 128/85 07/01/25 03:57 36.6 C 114 H 20 171/104 H Pulse Ox O2 Del Method O2 Flow Rate 07/01/25 13:10 07/01/25 07:37 Nasal Cannula 1 07/01/25 07:00 97 Nasal Cannula 1 07/01/25 05:48 07/01/25 05:33 07/01/25 04:18 07/01/25 03:57 96 Nasal Cannula 2 Laboratory Results 07/01/25 05:25 07/01/25 05:25 (3) Anemia Anemia type: unspecified type Qualified Code(s): D64.9 - Anemia, unspecified (4) Pneumonia Laterality: right Lung location: lower lobe of lung Pneumonia type: due to unspecified organism Qualified Code(s): J18.9 - Pneumonia, unspecified organism (5) Syncope Syncope type: unspecified Qualified Code(s): R55 - Syncope and collapse (6) Altered mental status Altered mental status type: unspecified Qualified Code(s): R41.82 - Altered mental status, unspecified
--- NOTE | 2025-07-01 15:58 | Hospitalist Progress Note ---
Date of Service July 01, 2025 Assessment & Plan (1) Syncope: Plan: Presented with syncopal episode while in shower Has been having decreased responsiveness and movements for the last 3 days Has been off a patch for 3 days for her neurologic condition which has been ascribed to get the name from the neurologist She was noted to have twitching involving the extremities She does not have any arrhythmias and monitor her blood pressure remains on the lower side She has been almost bedbound for the last 3 days and usually ambulating with walker and assist Neurology consultation has been requested Remains semiresponsive and hemodynamically stable Appreciate neurology input and recommendation 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 Likely secondary to Withdrawal from Rivastigmine-Typically occurs 3-7 days after stopping the med abruptly Minimal twitching involving the hands and feet thia AM and full blown tonic clonic at around 4 PM Appreciate Neurology input and recommendation Given Ativan 2 mg IV stat and Will be given Dilantin 250mg IV loading dose and 100 mg IV q8h from tomorrow The family members have already applied the Rivastigmine patch Still has minimal twitching involving the extremities but no more tonic-clonic seizures as of yesterday Awaiting EEG report and continuing Dilantin 100 mg 3 times daily IV The family is contacting the neurologist about rivastigmine whether to continue or to discontinue Has been having a little more twitching and will get a CTH without contrast and give 1 mg IV ativan Remains obtunded with only response to painful stimuli at times by opening eyes and making noncompliance if verbal response Clonus type of movements involving the extremities with examination Ongoing twitching involving the extremities which is worse at times suggestive of ongoing seizures Discussed with the in detail and he is agreeable to transfer the patient to [place] for continued care Speech therapy evaluation Remains n.p.o. and will continue mouth care for now Speech therapy will reevaluate with further recommendation NG tube has been put in and plan to start enteral feeding as soon as possible (2) Hypotension: Plan: #Possible PNA- involving right lower lobe UTI has been ruled out In ER patient found to be Hypotensive with BP 88/76, T: 35.3C rectal, P: 82, R: 22, 87% on room air increased to 94 percent on 4 L via nasal cannula In ER was placed on warming blanket, given 1L NSS. BP improved to 99/50. Another 1L NSS ordered in ER No leukocytosis, lactate: 2.8, procalcitonin: 0.09 BUN: 76, Cr: 4.7 (was 3.5 on 04/19/25, 4.2 on 04/17/25) UA possible UTI CXR: Suspected combination of pulmonary edema and right lower lobe pneumonia. Cardiomegaly Obtain CT head -showed cerebral atrophy, old infarcts and chronic small vessel ischemic disease BP has improved Repeat lactate: 1.9 Urine culture-has been negative Blood culture - negative Will continue Zosyn, doxycycline No fever no chills and white count is not elevated #ABEL superimposed on CKD stage IV/V F[facility] BUN: 76, Cr: 4.7 (was 4 on 05/06/25, 3.5 on 04/19/25, 4.2 on 04/17/25) S/p 2L NSS in ED Continue sodium bicarb Nephrology consult-appreciate nephrology input and recommendation Received 20 of Lasix IV but the urine output has been decreasing Discussed the need for dialysis with the and they are agreeable to go ahead with hemodialysis if needed #History Mild cognitive impairment Previous trial of donepezil has been discontinued per secondary to side effects F/w neuropsych in [facility] --> recently diagnosed w/ this last year Currently resting in bed Monitor for delirium #Chronic diastolic HF Was given 2L IVF in ER Closely monitor volume status No signs of volume overload Will give cautious amount of IVF #HTN Was hypotensive in ER Hold nifedipine for now Blood pressure remains elevated and will add Norvasc 2.5 mg and continue beta- melody Received a dose of labetalol last night due to high blood pressure Remains stable this morning #PAF #Cerebral amyloid angiopathy Not on any anticoagulants 2/2 h/o cerebral amyloid angiopathy per family S/p LAAO device placement in 03/2024 Current rate controlled afib Continue metoprolol with holding parameters #Type I DM A1c: 6.6 on 04/11/25 Patient on insulin pump and continuous glucose monitor; wants to continue to use insulin pump and continuous glucose monitor while inpatient. BSG check ACHS #Anemia of chronic disease Recently established w/ Martell heme On Aranesp Hgb: 9.7. Baseline 8's-9's Continue iron, folic acid supplements Continue H/H monitoring #History Generalized weakness Lives at home w/ . Has HH aide Possibly obtain PT/OT evals as able when appropriate. Last admission did not want SNF Fall precautions #HLD Continue Zetia, statin #Anxiety/depression Continue Celexa #Hyperthyroidism #H/o multinodular goiter F/w endocrinology in [facility] DVT Prophylaxis SCDs for now Admit PCU Full Code as per discussion with pt's at bedside. would consider pressors if needed also Follows with Dr Madden for routine care Admission and Anticipated Discharge Date Admission Date: June 28, 2025 Subjective 06/29/2025 The patient was seen and examined in telemetry unit in presence of the Patient remains minimally verbal and was brought in with syncope while in shower Noted to have twitching involving the extremities Does not have any significant distress at rest 06/30/2025 The patient was seen and examined in telemetry unit in presence of the She has been sleepy since last evening following administration of Ativan for seizures She has had minimal responsive to vocal commands and did talk to the nursing personnel last night Was not arousable during examination but remained hemodynamically stable Discussed with the in detail 07/01/2025 The patient was seen and examined in presence of the She remains obtunded and has not been responding to vocal commands or not moving Still having occasional twitching and sometimes it it is like seizures Her condition has not improved so far and not showing any signs of improvement Discussed with the neurologist and advised to transfer the patient as she is likely having status epilepticus Review of Systems Review of Systems: Unobtainable due to cognitive status Physical Exam Physical Exam: Remains obtunded and minimally responsive to painful stimuli Constitutional: + ill appearing and average body habitus Eyes: PERRL, conjunctivae normal, anicteric sclerae ENMT: external ear and nose normal, oropharynx normal Neck: trachea midline, no thyromegaly Respiratory: no respiratory distress Auscultation: lungs clear to auscultation bilaterally Cardiovascular: Rate/Rhythm: + tachycardic and + irregularly irregular Heart Sounds: normal S1 and normal S2; no murmur Extremities: no edema Gastrointestinal (Abdomen): Inspection/Auscultation: normal bowel sounds; abdomen not distended Percussion/Palpation: abdomen soft; abdomen nontender Neurologic: + obtunded Not responding to vocal commands. Shaking of extremities with clonus type of movements on bedside examination. Lymphatic: no cervical or axillary lymphadenopathy Results & Data Results & Data Vital Signs (Past 12 Hours) Vital Signs Temp Pulse Pulse Resp BP BP BP 07/01/25 13:35 103 H 137/78 07/01/25 13:20 123 H 159/82 H 07/01/25 13:10 159/82 H 07/01/25 07:37 07/01/25 07:00 36.1 C L 101 H 14 155/105 H 07/01/25 05:48 109 H 135/79 07/01/25 05:33 105 H 165/98 H 07/01/25 04:18 128/85 07/01/25 03:57 36.6 C 114 H 20 171/104 H Pulse Ox O2 Del Method O2 Flow Rate 07/01/25 13:35 07/01/25 13:20 07/01/25 13:10 07/01/25 07:37 Nasal Cannula 1 07/01/25 07:00 97 Nasal Cannula 1 07/01/25 05:48 07/01/25 05:33 07/01/25 04:18 07/01/25 03:57 96 Nasal Cannula 2 Laboratory Results Short CBC 07/01/25 Range/Units 05:25 WBC 6.67 (4.8-10.8) K/ul Hgb 9.1 L (12.0-16.0) g/dl Hct 29.4 L (37.0-47.0) % Plt Count 129 L (130-400) K/uL BMP 07/01/25 05:25 Sodium 145 Potassium 4.3 Chloride 113 H Carbon Dioxide 23 BUN 57 H Creatinine 4.84 H* Glucose 135 H Calcium 9.0 Liver Function 07/01/25 Range/Units 05:25 Total Bilirubin 0.5 (0.2-1.0) mg/dl AST 9 L (13-39) U/L ALT 8 (7-52) U/L Alkaline Phosphatase 45 (34-104) U/L Albumin 3.0 L (3.4-5.0) gm/dl Medications Administered Current Inpatient Medications Acetaminophen (Acetaminophen 325 Mg Tab) 650 mg PO Q4H PRN PRN Reason: Pain or Fever Stop: 07/28/25 19:16 Amlodipine Besylate (Amlodipine Besylate 5 Mg Tab) [facility] Stop: 07/29/25 13:44 Last Admin: 07/01/25 13:18 Dose: Not Given Ascorbic Acid (Ascorbic Acid 500 Mg Tab) 500 mg PO DAILY [facility] Stop: 07/29/25 08:59 Last Admin: 07/01/25 13:18 Dose: Not Given Aspirin (Aspirin 81 Mg Ectab) [facility] [place] Stop: 07/29/25 08:59 Last Admin: 07/01/25 13:19 Dose: Not Given Atorvastatin Calcium (Atorvastatin 40 Mg Tab) 40 mg PO [facility] Stop: 07/28/25 20:59 Last Admin: 06/30/25 21:07 Dose: Not Given Dextrose (Dextrose 50% 50 Ml Syringe) 25 - 50 ml IV UD PRN; Protocol PRN Reason: Hypoglycemia Protocol Stop: 07/28/25 19:16 Ezetimibe (Ezetimibe 10 Mg Tab) 10 mg PO [facility] Stop: 07/28/25 20:59 Last Admin: 06/30/25 21:07 Dose: Not Given Ferrous Sulfate (Ferrous Sulfate 325 Mg Tab) 325 mg PO [facility] Stop: 07/29/25 08:59 Last Admin: 07/01/25 13:20 Dose: Not Given Folic Acid (Folic Acid 1 Mg Tab) 1 mg PO [facility] Stop: 07/29/25 08:59 Last Admin: 06/30/25 11:00 Dose: Not Given Glucagon (Glucagon For Inj 1 Mg Vial) 1 mg SQ UD PRN; Protocol PRN Reason: Hypoglycemia Protocol Stop: 07/28/25 19:16 Glucose (Glucose 40% Gel 15 Gm Tube) 15 - 30 gm PO UD PRN; Protocol PRN Reason: Hypoglycemia Protocol Stop: 07/28/25 19:16 Glucose (Glucose 10 Tab/Tube) 4 - 8 tab PO UD PRN; Protocol PRN Reason: Hypoglycemia Protocol Stop: 07/28/25 19:16 Doxycycline Hyclate 100 mg/ (Dextrose) 100 mls @ 50 mls/hr IV Q12H [facility] Stop: 07/04/25 08:59 Last Infusion: 07/01/25 14:32 Dose: Infused Piperacillin Sod/Tazobactam Sod (Zosyn) 4.5 gm in 100 mls @ 25 mls/hr IV Q12H [facility]; Protocol Stop: 07/04/25 05:59 Last Infusion: 07/01/25 09:47 Dose: Infused Folic Acid 1 mg/ Syringe 10 mls @ 5 mls/min IV QAM [facility] Stop: 07/31/25 08:59 Last Admin: 07/01/25 09:42 Dose: 5 mls/min Insulin Aspart (Insulin, Rapid-Acting Pump) 0 each N/A ACHS [facility]; Protocol Stop: 07/28/25 20:59 Last Admin: 07/01/25 13:24 Dose: 0.3 each Insulin Aspart (Insulin Aspart 100 Units/Ml Vial) 0 units SC PRN PRN PRN Reason: Pump Refill Use ONLY Stop: 07/28/25 20:14 Last Admin: 06/30/25 17:45 Dose: 1.55 units Magnesium Hydroxide (Magnesium Hydroxide Susp 30 Ml Udc) 30 ml PO Q12H PRN PRN Reason: Constipation Stop: 07/28/25 19:16 Metoprolol Succinate (Metoprolol Succ 50mg Ext Rel Tab) 100 mg PO HS [facility] Stop: 07/28/25 20:59 Last Admin: 06/30/25 21:07 Dose: Not Given Metoprolol Tartrate (Metoprolol Tartrate 1 Mg/Ml Vial) 5 mg IV Q6 [facility] Stop: 07/31/25 00:00 Last Admin: 07/01/25 13:20 Dose: 5 mg Miscellaneous (Carbohydrates For Hypoglycemia ) 15 - 30 gm PO UD PRN PRN Reason: Hypoglycemia Protocol Stop: 07/28/25 19:16 Miscellaneous (Order Awaiting Action - Citalopram 10 Mg Tablet) 1 each N/A QS [facility] Stop: 07/29/25 00:00 Last Admin: 07/01/25 15:44 Dose: Not Given Ondansetron HCl (Ondansetron Inj 2 Mg/Ml 2 Ml Vial) 4 mg IV Q6H PRN PRN Reason: Nausea Stop: 07/28/25 19:16 Polyethylene Glycol (Polyethylene (Miralax) 17 Gm Pack) 17 gm PO DAILY PRN PRN Reason: Constipation Stop: 07/28/25 19:16 Sodium Bicarbonate (Sodium Bicarbonate 650 Mg Tab) 1,300 mg PO BID [facility] Stop: 07/28/25 20:59 Last Admin: 07/01/25 13:20 Dose: Not Given Vitamin D (Cholecalciferol 25 Mcg (1000 Units) Tab) 25 mcg PO DAILY [facility] Stop: 07/29/25 08:59 Last Admin: 07/01/25 13:19 Dose: Not Given
--- NOTE | 2025-07-01 16:04 | Discharge Summary ---
Date of Service July 01, 2025 Admission HPI Per Admitting Provider Patient is 84 year old female with PMH CKD IV/V, DM I, anemia of chronic disease, PAF s/p left atrial appendage occluder device placement in March 2024, HTN, HLD, chronic diastolic HF, history of meningioma s/p resection in 2014, multinodular goiter, cerebral amyloid angiopathy, TIA, cognitive impairment presented to ER with c/o syncope in shower. Unable to obtain any history from patient secondary to mental status. Patient answers "No" to all questions. Per inpatient chart review recent hospitalization 04/17/2025-04/19/2025 for AMS, ABEL on CKD, Initially treated with Rocephin for UTI that was discontinued secon true to negative urine culture. AMS was thought secondary to metabolic encephalopathy, dehydration, delirium vs worsening dementia. Per patient's patient had syncopal episode in shower today. reports patient seemed more sedated recently and has had decreased oral intake. Per EMS was found to by hypotensive upon their arrival. In ER patient found to be Hypotensive with BP 88/76, T: 35.3C rectal, P: 82, R: 22, 87% on room air increased to 94 percent on 4 L via nasal cannula In ER was placed on warming blanket, given 1L NSS. BP improved to 99/50. Another 1L NSS ordered in ER Admission Exam Per Admitting Provider Physical Exam: General: in no apparent distress lying in position on right side in bed. Thin elderly female Head: normocephalic, atraumatic Eyes: PERRL, conjunctiva non-injected, anicteric ENT: normal inspection external ears, nose, mucous membranes dry Neck: supple, trachea midline Lungs: clear, no respiratory distress on O2 via NC with O2 sat 94%, poor inspiratory effort and diminished breath sounds but no wheezing/rhonchi/rales noted CV: irregularly irregular, rate 78, no pretibial edema Abd: normal BS, soft, no apparent tenderness to palpation Ext: no cyanosis, no calf tenderness, +scattered ecchymosis Neuro: Awakens to voice. Answers "No" to all questions and unable to further assess. Unwilling to follow commands Skin: warm, dry Principal Diagnosis Status epilepticus,Metabolic encephalopathy,Cerebral amyloid angiopathy,CKD5 Discharge Exam Remains obtunded and minimally responsive to painful stimuli Constitutional + ill appearing and average body habitus Eyes PERRL, conjunctivae normal, anicteric sclerae ENMT external ear and nose normal, oropharynx normal Neck trachea midline, no thyromegaly Respiratory no respiratory distress Auscultation: lungs clear to auscultation bilaterally Cardiovascular Rate/Rhythm: + tachycardic and + irregularly irregular Heart Sounds: normal S1 and normal S2; no murmur Extremities: no edema Gastrointestinal (Abdomen) Inspection/Auscultation: normal bowel sounds; abdomen not distended Percussion/Palpation: abdomen soft; abdomen nontender Neurologic + obtunded Lymphatic no cervical or axillary lymphadenopathy Discharge Data Allergies Allergy/AdvReac Type Severity Reaction Status Date / Time No Known Allergies Allergy Verified 07/06/24 18:47 Consultations 06/28/25 17:27 ED Decision to Admit Stat 06/29/25 11:12 Consult Neurology Routine 06/29/25 15:15 Consult Nephrology Routine Ordered Studies 06/28/25 18:31 CT head/brain wo con Urgent 06/30/25 16:17 CT head/brain wo con Urgent Hospital Course (1) Syncope: Presented with syncopal episode while in shower Has been having decreased responsiveness and movements for the last 3 days Has been off a patch for 3 days for her neurologic condition which has been ascribed to get the name from the neurologist She was noted to have twitching involving the extremities She does not have any arrhythmias and monitor her blood pressure remains on the lower side She has been almost bedbound for the last 3 days and usually ambulating with walker and assist Neurology consultation has been requested Remains semiresponsive and hemodynamically stable Appreciate neurology input and recommendation 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 Likely secondary to Withdrawal from Rivastigmine-Typically occurs 3-7 days after stopping the med abruptly Minimal twitching involving the hands and feet thia AM and full blown tonic clonic at around 4 PM Appreciate Neurology input and recommendation Given Ativan 2 mg IV stat and Will be given Dilantin 250mg IV loading dose and 100 mg IV q8h from tomorrow The family members have already applied the Rivastigmine patch Still has minimal twitching involving the extremities but no more tonic-clonic seizures as of yesterday Awaiting EEG report and continuing Dilantin 100 mg 3 times daily IV The family is contacting the neurologist about rivastigmine whether to continue or to discontinue Has been having a little more twitching and will get a CTH without contrast and give 1 mg IV ativan Remains obtunded with only response to painful stimuli at times by opening eyes and making noncompliance if verbal response Clonus type of movements involving the extremities with examination Ongoing twitching involving the extremities which is worse at times suggestive of ongoing seizures Discussed with the in detail and he is agreeable to transfer the patient to [place] for continued care Speech therapy evaluation Remains n.p.o. and will continue mouth care for now Speech therapy will reevaluate with further recommendation NG tube has been put in and plan to start enteral feeding as soon as possible (2) Hypotension: #Possible PNA- involving right lower lobe UTI has been ruled out In ER patient found to be Hypotensive with BP 88/76, T: 35.3C rectal, P: 82, R: 22, 87% on room air increased to 94 percent on 4 L via nasal cannula In ER was placed on warming blanket, given 1L NSS. BP improved to 99/50. Another 1L NSS ordered in ER No leukocytosis, lactate: 2.8, procalcitonin: 0.09 BUN: 76, Cr: 4.7 (was 3.5 on 04/19/25, 4.2 on 04/17/25) UA possible UTI CXR: Suspected combination of pulmonary edema and right lower lobe pneumonia. Cardiomegaly Obtain CT head -showed cerebral atrophy, old infarcts and chronic small vessel ischemic disease BP has improved Repeat lactate: 1.9 Urine culture-has been negative Blood culture - negative Will continue Zosyn, doxycycline No fever no chills and white count is not elevated #ABEL superimposed on CKD stage IV/V F/w nephro at both [facility] Eric and Dr. Johana Moura Not on dialysis BUN: 76, Cr: 4.7 (was 4 on 05/06/25, 3.5 on 04/19/25, 4.2 on 04/17/25) S/p 2L NSS in ED Continue sodium bicarb Nephrology consult-appreciate nephrology input and recommendation Received 20 of Lasix IV but the urine output has been decreasing Discussed the need for dialysis with the and they are agreeable to go ahead with hemodialysis if needed #History Mild cognitive impairment Previous trial of donepezil has been discontinued per secondary to side effects F/w neuropsych in [facility] --> recently diagnosed w/ this last year Currently resting in bed Monitor for delirium #Chronic diastolic HF Was given 2L IVF in ER Closely monitor volume status No signs of volume overload Will give cautious amount of IVF #HTN Was hypotensive in ER Hold nifedipine for now Blood pressure remains elevated and will add Norvasc 2.5 mg and continue beta- melody Received a dose of labetalol last night due to high blood pressure Remains stable this morning #PAF #Cerebral amyloid angiopathy Not on any anticoagulants 2/2 h/o cerebral amyloid angiopathy per family S/p LAAO device placement in 03/2024 Current rate controlled afib Continue metoprolol with holding parameters #Type I DM A1c: 6.6 on 04/11/25 Patient on insulin pump and continuous glucose monitor; wants to continue to use insulin pump and continuous glucose monitor while inpatient. BSG check ACHS #Anemia of chronic disease Recently established w/ [facility] heme On Aranesp Hgb: 9.7. Baseline 8's-9's Continue iron, folic acid supplements Continue H/H monitoring #History Generalized weakness Lives at home w/ . Has HH aide Possibly obtain PT/OT evals as able when appropriate. Last admission did not want SNF Fall precautions #HLD Continue Zetia, statin #Anxiety/depression Continue Celexa #Hyperthyroidism #H/o multinodular goiter F/w endocrinology in [facility] DVT Prophylaxis SCDs for now Admit PCU Full Code as per discussion with pt's at bedside. would consider pressors if needed also Follows with Dr Madden for routine care Total Time Total Time Spent Total Time Spent (In Minutes): 45 Minutes Discharge Plan Discharge Items Patient Disposition: Transfer Acute Care Hospital Reason For Visit: SYNCOPE Discharge Diagnosis: Status epilepticus,Metabolic encephalopathy,Cerebral amyloid angiopathy,CKD5 Condition on Discharge: Critical Activity: As commented below Activity Comment: Will be transferred to [place] Non-emergency contact: Primary Care Provider Call non-emergency contact if: you have any medication questions and your symptoms worsen Follow-up/Referrals: Cecilia Madden, DO [Primary Care Provider] - (Please make an appointment with your PCP within 7 days following discharge from the facility) Diet: Other - See Diet Comment Diet Comment: NPO-NG feeding Addtl Attending Provider Instructions: Current In-patient medications Current Inpatient Medications Acetaminophen (Acetaminophen 325 Mg Tab) 650 mg PO Q4H PRN PRN Reason: Pain or Fever Stop: 07/28/25 19:16 Amlodipine Besylate (Amlodipine Besylate 5 Mg Tab) 2.[facility] Stop: 07/29/25 13:44 Last Admin: 07/01/25 13:18 Dose: Not Given Ascorbic Acid (Ascorbic Acid 500 Mg Tab) 500 mg PO DAILY [facility] Stop: 07/29/25 08:59 Last Admin: 07/01/25 13:18 Dose: Not Given Aspirin (Aspirin 81 Mg Ectab) 81 [facility] Stop: 07/29/25 08:59 Last Admin: 07/01/25 13:19 Dose: Not Given Atorvastatin Calcium (Atorvastatin 40 Mg Tab) 40 mg PO HS [facility] Stop: 07/28/25 20:59 Last Admin: 06/30/25 21:07 Dose: Not Given Dextrose (Dextrose 50% 50 Ml Syringe) 25 - 50 ml IV UD PRN; Protocol PRN Reason: Hypoglycemia Protocol Stop: 07/28/25 19:16 Ezetimibe (Ezetimibe 10 Mg Tab) 10 mg PO [facility] Stop: 07/28/25 20:59 Last Admin: 06/30/25 21:07 Dose: Not Given Ferrous Sulfate (Ferrous Sulfate 325 Mg Tab) 325 mg PO [facility] Stop: 07/29/25 08:59 Last Admin: 07/01/25 13:20 Dose: Not Given Folic Acid (Folic Acid 1 Mg Tab) 1 mg [facility] Stop: 07/29/25 08:59 Last Admin: 06/30/25 11:00 Dose: Not Given Glucagon (Glucagon For Inj 1 Mg Vial) 1 mg SQ UD PRN; Protocol PRN Reason: Hypoglycemia Protocol Stop: 07/28/25 19:16 Glucose (Glucose 40% Gel 15 Gm Tube) 15 - 30 gm PO UD PRN; Protocol PRN Reason: Hypoglycemia Protocol Stop: 07/28/25 19:16 Glucose (Glucose 10 Tab/Tube) 4 - 8 tab PO UD PRN; Protocol PRN Reason: Hypoglycemia Protocol Stop: 07/28/25 19:16 Doxycycline Hyclate 100 mg/ (Dextrose) 100 mls @ 50 mls/hr IV Q12H [facility] Stop: 07/04/25 08:59 Last Infusion: 07/01/25 14:32 Dose: Infused Piperacillin Sod/Tazobactam Sod (Zosyn) 4.5 gm in 100 mls @ 25 mls/hr IV Q12H [facility]; Protocol Stop: 07/04/25 05:59 Last Infusion: 07/01/25 09:47 Dose: Infused Folic Acid 1 mg/ Syringe 10 mls @ 5 mls/min IV QAM [facility] Stop: 07/31/25 08:59 Last Admin: 07/01/25 09:42 Dose: 5 mls/min Insulin Aspart (Insulin, Rapid-Acting Pump) 0 each N/A ACHS [facility]; Protocol Stop: 07/28/25 20:59 Last Admin: 07/01/25 13:24 Dose: 0.3 each Insulin Aspart (Insulin Aspart 100 Units/Ml Vial) 0 units SC PRN PRN PRN Reason: Pump Refill Use ONLY Stop: 07/28/25 20:14 Last Admin: 06/30/25 17:45 Dose: 1.55 units Magnesium Hydroxide (Magnesium Hydroxide Susp 30 Ml Udc) 30 ml PO Q12H PRN PRN Reason: Constipation Stop: 07/28/25 19:16 Metoprolol Succinate (Metoprolol Succ 50mg Ext Rel Tab) 100 mg PO HS [facility] Stop: 07/28/25 20:59 Last Admin: 06/30/25 21:07 Dose: Not Given Metoprolol Tartrate (Metoprolol Tartrate 1 Mg/Ml Vial) 5 mg IV Q6 [facility] Stop: 07/31/25 00:00 Last Admin: 07/01/25 13:20 Dose: 5 mg Miscellaneous (Carbohydrates For Hypoglycemia ) 15 - 30 gm PO UD PRN PRN Reason: Hypoglycemia Protocol Stop: 07/28/25 19:16 Miscellaneous (Order Awaiting Action - Citalopram 10 Mg Tablet) 1 each N/A QS [facility] Stop: 07/29/25 00:00 Last Admin: 07/01/25 15:44 Dose: Not Given Ondansetron HCl (Ondansetron Inj 2 Mg/Ml 2 Ml Vial) 4 mg IV Q6H PRN PRN Reason: Nausea Stop: 07/28/25 19:16 Polyethylene Glycol (Polyethylene (Miralax) 17 Gm Pack) 17 gm PO DAILY PRN PRN Reason: Constipation Stop: 07/28/25 19:16 Sodium Bicarbonate (Sodium Bicarbonate 650 Mg Tab) 1,300 mg PO BID [facility] Stop: 07/28/25 20:59 Last Admin: 07/01/25 13:20 Dose: Not Given Vitamin D (Cholecalciferol 25 Mcg (1000 Units) Tab) 25 mcg PO DAILY [facility] Stop: 07/29/25 08:59 Last Admin: 07/01/25 13:19 Dose: Not Given Pending Studies at Discharge: No Stand-Alone Forms: My [facility] Skilled Items Patient informed of condition?: Yes DNR: No Discharge Level of Care: Other Communicable Disease: No Discharge Prognosis: Deteriorating Lines: Peripheral IV Urinary Catheter: Yes Medications and DC Order Prescriptions: Continued citalopram 10 mg tablet 15 mg PO DAILY d-mannose 500 mg Capsule 500 mg PO QAM Patient Comments: 06/28- otc unable to verify Aranesp (in polysorbate) 25 mcg/0.42 mL syringe 25 mcg subcut UD Rx Instructions: 25 mcg subcutaneously every 28 days atorvastatin 40 mg tablet 40 mg PO HS aspirin 81 mg Tablet,Delayed Release (Dr/Ec) 81 mg PO QAM Patient Comments: 06/28- otc unable to verify Rx Instructions: Per family no other blood thinners because of brain bleed. sodium bicarbonate 650 mg tablet 1,300 mg PO BID Hold Instructions: until PCP or nephrology follow up insulin aspart U-100 [Novolog U-100 Insulin aspart] 100 unit/mL solution 0 sliding scale dose continuous subcutaneous infusion CONTINOUS Rx Instructions: family would prefer her to continue infusion device, it's easier for family to keep up. ezetimibe 10 mg tablet 10 mg PO HS folic acid 1 mg Tablet 1 mg PO QAM Qty: 30 0RF ferrous sulfate 325 mg (65 mg iron) Tablet,Delayed Release (Dr/Ec) 325 mg PO QAM Qty: 30 0RF Patient Comments: 06/28- otc unable to verify nifedipine 30 mg tablet extended release 24hr 30 mg PO DAILY metoprolol succinate 100 mg tablet extended release 24 hr 100 mg PO HS ascorbic acid (vitamin C) [Vitamin C] 500 mg Tablet 500 mg PO DAILY cholecalciferol (vitamin D3) 25 mcg (1,000 unit) Tablet 25 mcg PO DAILY Discharge Orders: Discharge Order (Routine); Ordered 07/01/25 Ordered By: Stephan Mcduffie Admission Data Admit Date/Time: 06/28/25 18:25 Attending Provider: Stephan Mcduffie Provider: Jose Angel Gaitan Primary Care Provider: Cecilia Madden Other Providers: Jose Angel Gaitan; Isa Rodriges; Martin Ortiz; Isa Fraser; Saman Camacho; Kiko Monroy; Axel Montague; Trevor Hutson; Diandra Baldwin; Stan Sims; Sai Daniels; Susan Garcia; Jesse Miguel; Sravani Roland; Trevor Ching; Sloane Ley; Adelita Teran; Gaby Molina; Chico Vaughn; Asuncion Romero; Emelia Coates; Mariana Kaufman
[2025-07-01 16:11] VITALS: BP 151/80; PULSE 104; RESP 16; TEMP 97.9; O2SAT 94
--- NOTE | 2025-07-02 10:42 | Electrocardiogram Report ---
Test Reason : Blood Pressure : */* mmHG Vent. Rate : 90 BPM Atrial Rate : * BPM P-R Int : * ms QRS Dur : 72 ms QT Int : 378 ms P-R-T Axes : * 30 33 degrees QTcB Int : 462 ms Suspect electrode reversal: LA RL ; interpretation assumes no reversal Atrial fibrillation Low voltage QRS Abnormal ECG When compared with ECG of 28-Jun-2025 16:11, Nonspecific T wave abnormality has replaced inverted T waves in Inferior leads T wave inversion no longer evident in Anterior leads Confirmed by Darin Whalen [id number] on 07/02/2025 10:42:37 AM Referred By: REFERRED SELF Confirmed By: Darin Whalen
== END 2025-07-01 18:16 | disposition short-term general hospital (02) | DRG 100 ==
LOC: ED 15:42 → EDINP 18:25 → SUATTDRO 18:25 → 4W 19:18

== ENCOUNTER 2025-08-05 10:14 | Inpatient (IN) ==
--- NOTE | 2025-08-05 10:40 | Emergency Department Note ---
Impression & Plan Weakness, Elevated troponin, Pleural effusion, Confusion, Dialysis patient, Anemia ED Provider Note NAME: CARLOS MOE AGE: 84 SEX: F : 1940 ARRIVES VIA: Ambulance INFORMANT: [Patient][] ED PROVIDER(S): [Tj Sosa MD] CHIEF COMPLAINT: Weakness HISTORY OF PRESENT ILLNESS: The patient is an 84-year-old female who has been weak and more confused since yesterday. She returned from [facility] about 3 or 4 days ago and, initially, seemed to be doing well. Now she has gone downhill. The denies any fever, cough, vomiting or diarrhea. The patient does attend dialysis Tuesday and Tuesday, she is missing dialysis today by being in the ED. PMHx/PSHx/Social Hx: See Below PHYSICAL EXAM: GENERAL: Patient is in no acute distress. HEENT: No acute trauma, normocephalic atraumatic, mucous membranes moist, no nasal congestion. NECK: No stridor, no adenopathy, no meningismus, trachea is midline. LUNGS: Clear to auscultation bilaterally when listening anterior, no wheeze, no rhonchi, breath sounds equal. No respiratory distress. HEART: 2/6 systolic murmur, slightly irregular rhythm, normal rate. ABDOMEN: Soft, nontender, no peritonitis. EXTREMITIES: No cyanosis, full range of motion of all the joints without pain or difficulty. Mild bilateral pedal edema. NEUROLOGIC: Somnolent, seen to move all extremities. Awakes to voice. SKIN: No jaundice, no diaphoresis. DIFFERENTIAL DIAGNOSIS: Bacteremia or sepsis, fluid overload, electrolyte imbalance, renal or liver failure, stroke or intracranial bleeding, among others. EMERGENCY DEPARTMENT PROCEDURES: MEDICAL DECISION MAKING: There is no leukocytosis. The patient is anemic however this is a baseline finding and her value is relatively stable compared to previous testing. There is a normal platelet count. No bandemia. VBG does not show acidosis or significant CO2 retention. Renal panel testing shows the need for dialysis but not the need for emergent dialysis treatment today. There were some elevated liver enzymes however, the bilirubin is normal. Ammonia level was not elevated. The TSH was high however, the T4 was normal. BNP was quite high consistent with fluid overload and renal failure. ECG showed atrial fibrillation without any obvious acute ischemia. Cardiac enzyme testing is quite elevated. This troponin elevation could be secondary to recent cardiac injury. Chest x-ray shows a large left pleural effusion. No obvious focal pneumonia. Brain CT shows no acute bleed or mass effect. The patient presents with somnolence, weakness. She was found to have a very high troponin, she has a large left pleural effusion. She was quite weak diffusely on my exam. The patient needs a stay in the hospital. She needs further cardiac and pulmonary workup. She will require dialysis at some point as she did miss her treatment today. I spoke with the family, I spoke with case management, the on-call hospitalist was consulted. Prior/Outside records/notes reviewed: Today's EMS notes describing her presentation and transport to this hospital. ECG per my interpretation: Indication was weakness. The ECG shows atrial fibrillation with a rate of 82. There is diffuse nonspecific ST change. There is no acute ST elevation, no PVCs. There are some inverted T waves in the inferior and anterior leads. QTc is 501. Continuous Cardiac Monitoring per my interpretation: An order was placed for continuous cardiac monitoring. The monitor shows a rate of 80 with atrial fibrillation. Imaging/x-ray results per my interpretation: Chest x-ray shows a very large left pleural effusion. Chronic Medical/Social conditions affecting care: Advanced age, need for dialysis 3 times a week. Care/Management discussed with: Case management and the on-call hospitalist. Level of care consideration(s): After review of the information above and other included data: --I believe the patient requires escalation of care to admission DISPOSITION: Admission Past Med/Surg History Problem List HFrEF (heart failure with reduced ejection fraction) ESRD (end stage renal disease) NSTEMI (non-ST elevation myocardial infarction) Pleural effusion Lethargy Diastolic heart failure Acute kidney injury superimposed on stage 5 chronic kidney disease, not on chronic dialysis Pneumonia (Acute) Acute UTI (Acute) Syncope (Acute) Acute dehydration (Acute) Sepsis (Acute) Hypotension Syncope Abnormal urinalysis Delirium Acute dehydration (Acute) Anemia (Acute) ABEL (acute kidney injury) (Acute) Altered mental status (Acute) Memory changes Delirium due to multiple etiologies Anemia due to stage 4 chronic kidney disease Ambulatory dysfunction ABEL (acute kidney injury) Hyperkalemia Elevated troponin (Acute) Acute kidney injury superimposed on chronic kidney disease (Acute) Hypocalcemia (Acute) Acute hypokalemia (Acute) Acute confusion (Acute) Generalized weakness (Acute) Atrial fibrillation with controlled ventricular response Renal failure (ARF), acute on chronic Weakness COVID-19 virus infection (Acute) Medical History Acute kidney injury superimposed on CKD Cognitive impairment Acute metabolic encephalopathy Social History Smoking Status: Never smoker Second Hand Exposure: No; Do You Dip or Chew Tobacco: No; Hx Alcohol Use: No Hx Substance Use: No Preferred Language: Croatian Communication Ability: Effective Dance Choreographer Required: No Beliefs That Will Affect Care: None Current Living Situation: Spouse Feels Safe at Home: Yes Assistive Devices: Walker and Wheelchair Allergies Allergies Allergy/AdvReac Type Severity Reaction Status Date / Time No Known Allergies Allergy Verified 07/16/25 11:05 Home Meds Home Medications Medication Instructions Recorded Confirmed Aspirin Low-Strength 81 mg PO DAILY 08/05/25 08/05/25 atorvastatin 40 mg tablet 40 mg PO DAILY 08/05/25 08/05/25 cholecalciferol (vitamin D3) 25 mcg PO DAILY 08/05/25 08/05/25 citalopram 10 mg tablet 10 mg PO DAILY 08/05/25 08/05/25 ezetimibe 10 mg tablet 10 mg PO DAILY 08/05/25 08/05/25 folic acid 1 mg tablet 1 mg PO DAILY 08/05/25 08/05/25 losartan 50 mg tablet 50 mg PO DAILY 08/05/25 08/05/25 metoprolol succinate 100 mg 100 mg PO DAILY 08/05/25 08/05/25 tablet,extended release 24 hr omeprazole 20 mg capsule,delayed 20 mg PO DAILY 08/05/25 08/05/25 release sodium bicarbonate 650 mg tablet 1,300 mg PO BID 08/05/25 08/05/25 spironolactone 25 mg tablet 12.5 mg PO DAILY 08/05/25 08/05/25 Results & Data (ED) Vital Signs Vital Signs - 24 hr 08/05/25 10:22 08/05/25 10:32 08/05/25 10:32 Temperature 36.4 C L Temperature Source Oral Pulse Rate 80 83 Pulse Rate [Apical] Pulse Rhythm Regular Pulse Rhythm [Apical] Pulse Strength Normal Pulse Strength [Apical] Respiratory Rate 18 Respiratory Effort / Characteristics Non-Labored Spontaneous Respiratory Depth Normal Respiratory Pattern Regular Blood Pressure 116/79 Blood Pressure [Left Arm] Blood Pressure Mean 91 Blood Pressure Mean [Left Arm] Blood Pressure Position Lying Blood Pressure Position [Left Arm] Pulse Oximetry 94 94 Oxygen Delivery Method Nasal Cannula Nasal Cannula Oxygen Flow Rate 2 2 Sepsis Recent Fever Within 48 Hours No Sepsis New/Unexplained Change in Mental Status No Sepsis Action Taken by Nursing No Action Required 08/05/25 10:32 08/05/25 10:32 08/05/25 12:29 Temperature Temperature Source Pulse Rate 83 Pulse Rate [Apical] 83 85 Pulse Rhythm Regular Pulse Rhythm [Apical] Regular Regular Pulse Strength Pulse Strength [Apical] Normal Normal Respiratory Rate 18 18 16 Respiratory Effort / Characteristics Non-Labored Spontaneous Non-Labored Spontaneous Respiratory Depth Normal Normal Respiratory Pattern Regular Regular Blood Pressure Blood Pressure [Left Arm] 116/79 147/103 H Blood Pressure Mean Blood Pressure Mean [Left Arm] 91 117 Blood Pressure Position Blood Pressure Position [Left Arm] Lying Lying Pulse Oximetry 94 94 95 Oxygen Delivery Method Nasal Cannula Nasal Cannula Nasal Cannula Oxygen Flow Rate 2 2 2 Sepsis Recent Fever Within 48 Hours Sepsis New/Unexplained Change in Mental Status Sepsis Action Taken by Nursing 08/05/25 14:14 08/05/25 14:35 08/05/25 15:07 Temperature Temperature Source Pulse Rate 70 Pulse Rate [Apical] 77 78 Pulse Rhythm Pulse Rhythm [Apical] Regular Pulse Strength Pulse Strength [Apical] Normal Respiratory Rate 17 13 Respiratory Effort / Characteristics Non-Labored Spontaneous Non-Labored Spontaneous Respiratory Depth Normal Normal Respiratory Pattern Regular Regular Blood Pressure Blood Pressure [Left Arm] 142/89 H 160/102 H Blood Pressure Mean Blood Pressure Mean [Left Arm] 106 121 Blood Pressure Position Blood Pressure Position [Left Arm] Lying Pulse Oximetry 99 95 Oxygen Delivery Method Nasal Cannula Nasal Cannula Oxygen Flow Rate 2 2 Sepsis Recent Fever Within 48 Hours Sepsis New/Unexplained Change in Mental Status Sepsis Action Taken by [facility] Medications Current Medication List: was personally reviewed by me Laboratory Data Attestation: I reviewed the patient's lab results. 08/05/25 10:25 08/05/25 10:25 Lab Results 08/05/25 08/05/25 08/05/25 Range/Units 10:25 11:03 11:30 WBC 8.78 (4.8-10.8) K/ul RBC 3.21 L (4.20-5.40) M/uL Hgb 9.7 L (12.0-16.0) g/dl POC Hgb 11.2 L (12.0-16.0) g/dl Hct 31.9 L (37.0-47.0) % POC Hct 33 L (37-47) % MCV 99.4 (80.0-100.0) fL MCH 30.2 (25.0-34.0) pg MCHC 30.4 L (32.0-36.0) g/dL RDW Std Deviation 67.6 H (36.4-46.3) fL RDW Coeff of Sean 18.6 H (11.5-14.5) % Plt Count 221 (130-400) K/uL MPV 11.3 (9.4-12.4) fL Immature Gran % (Auto) 1.8 % Neut % (Auto) 71.8 % Lymph % (Auto) 16.6 % [place] % (Auto) 8.7 % Eos % (Auto) 0.3 % Baso % (Auto) 0.8 % Neut # (Auto) 6.30 (1.40-6.50) K/uL Lymph # (Auto) 1.46 (1.20-3.40) K/uL [place] # (Auto) 0.76 H (0.11-0.59) K/uL Eos # (Auto) 0.03 (0.00-0.50) K/uL Baso # (Auto) 0.07 (0.00-0.20) K/uL Immature Gran # (Auto) 0.16 (0.01-0.20) K/uL Absolute Nucleated RBC 0.04 (0.00-0.12) K/uL Nucleated RBC % (auto) 0.5 % VBG pH (7.36-7.41) VBG pCO2 (38-50) mmHg VBG pO2 mmHg VBG HCO3 mmol/L VBG O2 Saturation % VBG Base Excess mEq/L POC Sodium 136 (135-144) mmol/L Sodium 140 (136-145) mmol/L POC Potassium 4.1 (3.3-5.0) mmol/L Potassium 4.2 (3.5-5.1) mmol/L POC Chloride 102 (101-112) mmol/L Chloride 99 (98-107) mmol/L Carbon Dioxide 29 (21-32) mmol/L POC Total CO2 27 (24-31) mmol/L Anion Gap 12 H (3-11) POC Anion Gap 13.0 L (16-25) mmol/L POC BUN 44 H (7-18) mg/dl BUN 50 H (6-23) mg/dl Creatinine 2.90 H (0.6-1.2) mg/dl POC Creatinine 3.2 H (0.6-1.3) mg/dl Est Cr Clr Drug Dosing 12.9 ml/min eGFR 15.58 BUN/Creatinine Ratio 17.2 (10-20) Glucose 125 H (70-99(Fasting)) mg/dl POC Glucose (other) 124 H (70-99) mg/dl Lactate 2.3 H* (0.4-2.0) mmol/L Calcium 9.0 (8.6-10.3) mg/dl POC Ioniz Calcium Ryan 1.06 L (1.12-1.32) mmol/l Phosphorus 4.0 (2.5-4.9) mg/dl Magnesium 2.4 (1.7-2.4) mg/dl Total Bilirubin 0.6 (0.2-1.0) mg/dl AST 111 H (13-39) U/L ALT 118 H (7-52) U/L Alkaline Phosphatase 171 H (34-104) U/L Ammonia 32.0 (18-72) umol/L Troponin I High Sens 3592.5 H* (0-14) pg/ml B-Natriuretic Peptide 2697 H (0-100) pg/ml Total Protein 6.4 (6.0-8.3) gm/dl Albumin 3.3 L (3.4-5.0) gm/dl Globulin 3.1 (2.5-4.0) gm/dl Albumin/Globulin Ratio 1.1 (0.9-2) TSH 0.228 L (0.300-4.500) uIu/ml Free T4 1.48 (0.61-1.60) ng/dl 08/05/25 08/05/25 08/05/25 Range/Units 12:12 12:40 12:53 WBC (4.8-10.8) K/ul RBC (4.20-5.40) M/uL Hgb (12.0-16.0) g/dl POC Hgb (12.0-16.0) g/dl Hct (37.0-47.0) % POC Hct (37-47) % MCV (80.0-100.0) fL MCH (25.0-34.0) pg MCHC (32.0-36.0) g/dL RDW Std Deviation (36.4-46.3) fL RDW Coeff of Sean (11.5-14.5) % Plt Count (130-400) K/uL MPV (9.4-12.4) fL Immature Gran % (Auto) % Neut % (Auto) % Lymph % (Auto) % [place] % (Auto) % Eos % (Auto) % Baso % (Auto) % Neut # (Auto) (1.40-6.50) K/uL Lymph # (Auto) (1.20-3.40) K/uL [place] # (Auto) (0.11-0.59) K/uL Eos # (Auto) (0.00-0.50) K/uL Baso # (Auto) (0.00-0.20) K/uL Immature Gran # (Auto) (0.01-0.20) K/uL Absolute Nucleated RBC (0.00-0.12) K/uL Nucleated RBC % (auto) % VBG pH 7.38 (7.36-7.41) VBG pCO2 52 H (38-50) mmHg VBG pO2 25 mmHg VBG HCO3 31 mmol/L VBG O2 Saturation < 60.0 % VBG Base Excess 4.7 mEq/L POC Sodium (135-144) mmol/L Sodium (136-145) mmol/L POC Potassium (3.3-5.0) mmol/L Potassium (3.5-5.1) mmol/L POC Chloride (101-112) mmol/L Chloride (98-107) mmol/L Carbon Dioxide (21-32) mmol/L POC Total CO2 (24-31) mmol/L Anion Gap (3-11) POC Anion Gap (16-25) mmol/L POC BUN (7-18) mg/dl BUN (6-23) mg/dl Creatinine (0.6-1.2) mg/dl POC Creatinine (0.6-1.3) mg/dl Est Cr Clr Drug Dosing ml/min eGFR BUN/Creatinine Ratio (10-20) Glucose (70-99(Fasting)) mg/dl POC Glucose (other) (70-99) mg/dl Lactate 2.2 H* (0.4-2.0) mmol/L Calcium (8.6-10.3) mg/dl POC Ioniz Calcium Ryan (1.12-1.32) mmol/l Phosphorus (2.5-4.9) mg/dl Magnesium (1.7-2.4) mg/dl Total Bilirubin (0.2-1.0) mg/dl AST (13-39) U/L ALT (7-52) U/L Alkaline Phosphatase (34-104) U/L Ammonia (18-72) umol/L Troponin I High Sens 3414.1 H* (0-14) pg/ml B-Natriuretic Peptide (0-100) pg/ml Total Protein (6.0-8.3) gm/dl Albumin (3.4-5.0) gm/dl Globulin (2.5-4.0) gm/dl Albumin/Globulin Ratio (0.9-2) TSH (0.300-4.500) uIu/ml Free T4 (0.61-1.60) ng/dl Imaging Data Radiologist's Impression: Chest X-Ray 08/05/25 10:32 XR chest 1V portable CLINICAL HISTORY: weakness COMPARISON STUDY: 06/28/2025 FINDINGS: Right dialysis catheter tip is at the cavoatrial junction. Stable left atrial appendage occlusion device. There is prominent cardiomegaly with mild pulmonary vascular congestion. There is a large left pleural effusion and associated pulmonary consolidation. There is a trace right pleural effusion. No pneumothorax. Stable old left rib fractures. IMPRESSION: CHF with large left pleural effusion and associated left pulmonary consolidation. ACT 112: Negative or not required by law. Electronically signed by: Saman Oliva M.D. 08/05/2025 11:[address] 08/05/25 10:33 CT SCAN OF THE BRAIN WITHOUT IV CONTRAST CLINICAL HISTORY: Weakness. Confusion. COMPARISON STUDY: Head CT June 30, 2025. TECHNIQUE: Unenhanced axial CT scan of the brain was performed from the vertex to the skull base. A dose lowering technique was utilized adhering to the principles of ALARA. CT DOSE: 625.8 mGy.cm FINDINGS: No acute intracranial hemorrhage, midline shift or mass effect is present. Ventricular system is stable. Ventricular dilatation is likely due to central atrophy. Multifocal encephalomalacia is unchanged. The appearance of the brain is unchanged. There are no findings to suggest acute dural sinus thrombosis or acute territorial infarct. A left frontoparietal craniotomy is again noted. There are no calvarial fractures. There is minimal sinus mucosal thickening. IMPRESSION: No acute intracranial findings. No change in appearance of the brain. ACT 112: Negative or not required by law. Electronically signed by: Jossue Ernandez M.D. 08/05/2025 12:38 PM Discharge Plan Visit Data Chief Complaint: Weakness Stated Complaint: WEAKNESS ED Provider: Tj Sosa Discharge Problem: Weakness, Elevated troponin, Pleural effusion, Confusion, Dialysis patient, Anemia Patient Disposition: Admitted As Inpatient Condition: Fair Discharge Instructions Interventions: ED Discharge Assessment Last Done: 08/05/25 15:04 Forms Stand Alone Forms: My [facility] Just Eat Prescriptions Prescriptions: No Action Aspirin Low-Strength 81 mg 81 mg PO DAILY losartan 50 mg tablet 50 mg PO DAILY atorvastatin 40 mg tablet 40 mg PO DAILY citalopram 10 mg tablet 10 mg PO DAILY metoprolol succinate 100 mg tablet extended release 24 hr 100 mg PO DAILY spironolactone 25 mg tablet 12.5 mg PO DAILY sodium bicarbonate 650 mg tablet 1,300 mg PO BID omeprazole 20 mg capsule,delayed release(DR/EC) 20 mg PO DAILY folic acid 1 mg tablet 1 mg PO DAILY ezetimibe 10 mg tablet 10 mg PO DAILY cholecalciferol (vitamin D3) 25 mcg 25 mcg PO DAILY Referrals Referrals: Cecilia Madden DO [Primary Care Provider] - Discharge Problem: Anemia Qualifiers: Anemia type: unspecified type Qualified Code(s): D64.9 - Anemia, unspecified
[2025-08-05 10:57] LABS: Hematocrit (blood only) 31.9 % (37.0-47.0); Hemoglobin 9.7 g/dl (12.0-16.0); Immature Granulocytes # (auto) 0.16 K/uL (0.01-0.20); Immature Granulocytes % (auto) 1.8 %; Mean Corpuscular Hemoglobin 30.2 pg (25.0-34.0); Mean Corpuscular Volume 99.4 fL (80.0-100.0); Platelet Count 221 K/uL (130-400); RDW Standard Deviation 67.6 fL (36.4-46.3); Red Blood Count 3.21 M/uL (4.20-5.40); White Blood Count 8.78 K/ul (4.8-10.8)
--- NOTE | 2025-08-05 11:05 | XRay Report ---
XR chest 1V portable CLINICAL HISTORY: weakness COMPARISON STUDY: 06/28/2025 FINDINGS: Right dialysis catheter tip is at the cavoatrial junction. Stable left atrial appendage occ lusion device. There is prominent cardiomegaly with mild pulmonary vascular congestion. There is a la rge left pleural effusion and associated pulmonary consolidation. There is a trace right pleural effu derick. No pneumothorax. Stable old left rib fractures. IMPRESSION: CHF with large left pleural effusion and associated left pulmonary consolidation. ACT 112: Negative or not required by law. Electronically signed by: Saman Oliva M.D. 08/05/2025 11:03 AM
[2025-08-05 11:20] LABS: Alanine Aminotransferase 118.0 U/L (7-52); Albumin Globulin Ratio 1.1 (0.9-2); Albumin Level 3.3 gm/dl (3.4-5.0); Alkaline Phosphatase 171.0 U/L (34-104); Anion Gap 12.0 (3-11); Bilirubin,Total 0.6 mg/dl (0.2-1.0); Blood Urea Nitrogen 50.0 mg/dl (6-23); Calcium 9.0 mg/dl (8.6-10.3); Carbon Dioxide 29.0 mmol/L (21-32); Chloride 99.0 mmol/L (98-107); Creatinine Clr Calc Pharmacy 12.9 ml/min; Globulin 3.1 gm/dl (2.5-4.0); Glucose 125.0 mg/dl (70-99(Fasting)); Magnesium 2.4 mg/dl (1.7-2.4); Potassium 4.2 mmol/L (3.5-5.1); Sodium 140.0 mmol/L (136-145); Total Protein 6.4 gm/dl (6.0-8.3)
[2025-08-05 11:32] LABS: Thyroid Stimulating Hormone 0.228 uIu/ml (0.300-4.500)
[2025-08-05 12:07] LABS: T4 Free Thyroxine 1.48 ng/dl (0.61-1.60)
[2025-08-05 12:32] LABS: Base Excess VBG 4.7 mEq/L; HCO3 VBG 31 mmol/L; Oxygen Saturation VBG < 60.0 %; PCO2 VBG 52 mmHg (38-50); PO2 VBG 25 mmHg; pH VBG 7.38 (7.36-7.41)
--- NOTE | 2025-08-05 12:40 | CT Scan Report ---
CT SCAN OF THE BRAIN WITHOUT IV CONTRAST CLINICAL HISTORY: Weakness. Confusion. COMPARISON STUDY: Head CT June 30, 2025. TECHNIQUE: Unenhanced axial CT scan of the brain was performed from the vertex to the skull base. A dose lowering technique was utilized adhering to the principles of ALARA. CT DOSE: 625.8 mGy.cm FINDINGS: No acute intracranial hemorrhage, midline shift or mass effect is present. Ventricular syst em is stable. Ventricular dilatation is likely due to central atrophy. Multifocal encephalomalacia is unchanged. The appearance of the brain is unchanged. There are no findings to suggest acute dural si nus thrombosis or acute territorial infarct. A left frontoparietal craniotomy is again noted. There a re no calvarial fractures. There is minimal sinus mucosal thickening. IMPRESSION: No acute intracranial findings. No change in appearance of the brain. ACT 112: Negative or not required by law. Electronically signed by: Jossue Ernandez M.D. 08/05/2025 12:38 PM
--- NOTE | 2025-08-05 14:32 | Cardiology Consultation ---
Date of Consultation August 05, 2025 Assessment & Plan (1) NSTEMI (non-ST elevation myocardial infarction): (2) ESRD (end stage renal disease): (3) Pleural effusion: (4) HFrEF (heart failure with reduced ejection fraction): Plan Assessment: 84 year old medically complex female admitted for cognitive decline, weakness and lower extremity swelling. High sensitivity troponin elevation with no acute ST-T wave elevation on EKG, in addition to missed HD treatment and elevated lactate levels. Chest xray with significant left pleural effusion. Cardiology consulted for further evaluation and recommendations. Plan: 1. NSTEMI 2. ESRD 3. Pleural Effusion 4. HFrEF -Patient with 3-4 days of general cognitive decline from baseline, increased lethargy, poor appetite and increase lower extremity edema. -High sensitivity troponin elevation in the setting of ESRD on HD with elevated lactate and a at least moderate left pleural effusion. Obtain echocardiogram to assess overall structure and function. -Recent echo completed during hospitalization at [facility] showed severely reduced LVEF of 25% which was new in comparison to a prior outside study in [place]. -Patient carries a history of cerebral amyloid with microhemorrhages. Would not recommend initiating of heparin gtt at this time. -Patient has a FATOUMATA closure device and therefore is not on oral anticoagulation for her chronic A-fib. -Review of telemetry shows A-fib with no acute events. Rates controlled -If patient is able to take oral medications would recommend to continue Metoprolol succinate 100mg PO Daily. Will await echo for further recommendations. -Strict I and O, daily weights. close monitoring of electrolytes. Unclear if patient is still making any urine since initiation of her dialysis treatments. -Recommend pulmonology be consulted for consideration of thoracentesis of large left pleural effusion. CT chest first. -Nephrology involvement given ESRD and hemodialysis. Appreciate all recommendations. Case has been discussed with Dr. Gann. Further recommendations regarding plan of care as per his assessment. I spent a total of 50 minutes on the date of service in preparation, delivery, documentation of the care provided to the patient excluding any time spent in the performance of separately billed services. ENIO Alejandro [facility] Supervising Physician Co-Signing Physician Notes Patient seen and examined. Past medical history, surgical history, social history and family history have been reviewed. The medical record and all the above studies have been reviewed. Case DW MARY KATE including management. 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 The right ventricle is mild to moderately dilated. The right ventricular systolic function is severely reduced. The right atrium is mild to moderately dilated. There is mild mitral regurgitation. There is mild to moderate tricuspid regurgitation. Right ventricular systolic pressure is elevated at 40-50mmHg. Small pericardial effusion. There are no echocardiographic indications of cardiac tamponade. Left Ventricular Ejection Fraction = 20-25%. Mild pulmonic valvular regurgitation. Mild aortic regurgitation. Recommendations: Thoracentesis of L pleural effusion HD as per Renal correct and f/u electrolytes high risk for complications associated with anticoagulation GDMT for HFrEF limited due to renal insufficiency and possible amyloid heart disease continue metoprolol cont losartan cont ASA cont statin adjust rate control meds keeping HR between 60 to 100 BPM and systolic BP between 100-140 mmHg adjust anti-HTN meds keeping systolic BP between 100-140 mmHg avoid hypovolemia keep patient euvolemic DVT prophylaxis maximize medical management as tolerated poor prognosis GOC - defer to primary History of Present Illness Reason for Consultation: Elevated troponin Requesting Physician: Martell ochoa History of Present Illness HPI: patient is a 84 year old female with PMHx as outlined below that presented to the ER with acute complaints of increased weakness and confusion since yesterday. Of note, patient was recently hospitalized at [facility] discharged on 07/01/25 for Status epilepticus,Metabolic encephalopathy,Cerebral amyloid angiopathy,CKD5. Patient was ultimately transfered to [facility] where it was decided that patient did not have a seizure. Family had questioned if a new medication for memory was culprit. The assessment/plan as documented at [facility] is as follows: "The patient was in her usual state of health until 06/28/25, when she experienced a syncopal episode at home. On arrival to the outside hospital, she was noted to be hypothermic, hypotensive, and with decreased mobility and confusion. Workup revealed right lower lobe pneumonia with possible pulmonary edema, acute kidney injury on CKD, lactic acidosis, and urinalysis suspicious for UTI. Chest x-ray supported pneumonia; cultures were obtained. She was given IV fluids with hemodynamic improvement and started on antibiotics. During admission she was noted to have intermittent twitching of her extremities, with EEG reported as showing seizure-like activity (formal report not available). She was treated with lorazepam and subsequently given phenytoin; levetiracetam and brivaracetam were reportedly not tolerated in the past. She remained on room air without respiratory compromise. A head CT showed no acute process, with chronic small vessel ischemic changes and old infarcts. Over the next two days, her neurologic status declined: she became increasingly lethargic, minimally verbal, and later obtunded, with intermittent jerky movements of the extremities. She was not consistently responsive to commands but remained hemodynamically stable. Outside neurology ultimately labeled this as status epilepticus, and transfer was arranged for further management. On arrival here, the patient remains obtunded and minimally responsive to painful stimuli. She exhibits occasional twitching movements. EEG has been performed, but the final report is pending. Neurology at our institution has evaluated the patient and at this time does not believe her presentation represents ongoing status epilepticus. HOSPITAL COURSE (focused): During her hospital course she was initially admitted to the intensive care unit later transferred to for low-dose once stable. Neurology was consulted. No seizure activity noted on LTM. Low concern for status epilepticus or seizure activities per Neurology. Rivastigmine discontinued permanently. Mentation improved. For her CKD stage 5 progress to ESRD, TDC was placed on 07/03/2025 by Vascular Surgery Nephrology was consulted. Patient was started on hemodialysis. She had malfunctioning of her dialysis catheter which was exchanged by Vascular Surgery on 07/12/2025 following which she tolerated dialysis session well with good functioning of the dialysis catheter. Plan is for eventual transition to peritoneal dialysis as outpatient. Fifth metatarsal fracture on the left side was evaluated by Orthopedics, recommended weight-bearing as tolerated and hard- soled shoe. She was found to have heart failure with reduced ejection fraction with no evidence of volume overload. Echo showed ejection fraction of 25% with trace pericardial effusion. Evaluated by Cardiology, started on losartan spironolactone Jardiance Toprol-XL, aspirin and statin and ask them to be per continued. Nifedipine weaned off and discontinued, Lopressor discontinued. Her blood sugars very labile during admission, uses insulin pump at home. She had episodes of hypoglycemia requiring IV dextrose and glucagon. For her chronic anemia plan is to start epoetin outpatient. She also received 5 days of antibiotics with Unasyn and doxycycline for pneumonia. She saturated well on room air, had some pleural effusions on imaging. For pulmonary nodules recommend outpatient follow up. Patient's vitals stable, last hemodialysis 07/12/2025. [facility]. At discharge from rehab hospital, kindly ensure follow up with Dr. Gaby Bai at [facility] unit for subsequent PD transition." Patient had been at [facility] for rehabilitation, discharged over the past week/week and a half. She had been receiving hemodialysis M/W/F, but missed today's treatment due to presenting to the ER. Family reports that patient had been doing well since discharge until the past 3-4 days. they noticed increased lower extremity edema, abdominal bloat, cognitive decline and coughing. No fevers. Reported that appetite was good until yesterday and then refused to eat today. Reports a loose stool this morning, but no repeat episodes and no vomiting. Family states that the only change in medications over the past 3-4 days was that her neurologist in [place] had recommended to restart the Rivastigmine. Day 1 they reported was a great day and then down hill since. EKG on admission shows A-fib, T wave inversion in both inferior and anterior leads. Rate 82bpm. QTC 511ms. T wave inversions have been seen in EKGs from both May and July 2025. No acute ST-T wave elevation. Chest xray CHF with large left pleural effusion and associated left pulmonary consolidation CT brain negative for acute intracranial findings. Lactate elevated High sensitivity troponin 3592.02/3414.1 BNP 2697 Past Medical history: 1. Paroxysmal Atrial fibrillation, now chronic --s/p FATOUMATA appendage closure device 04/25/2024 2. 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 HTN 4. HLD 5. IDDM Late onset type I 6. CKD stage 5 7. Anemia 8. Dementia 9. HFrEF dx Jul 2025 LVEF 25% Of note, patient has not been seen by [facility] cardiology outpatient in the past. She most recently has followed with a Dr. Rob Cid at [facility]. Patient was last seen by their office 11/30/24 stable from a cardiac perspective. upon seeing patient in examination today she is resting in bed, opens eyes to verbal stimuli and nods head, but does not speak at this time. Spouse and one of her adult children are at bedside. Review of telemetry shows A-fib rates 70's no acute events. Allergies Allergy/AdvReac Type Severity Reaction Status Date / Time No Known Allergies Allergy Verified 07/16/25 11:05 Home Medications Medication Instructions Recorded Confirmed Type Aspirin Low-Strength 81 mg PO DAILY 08/05/25 08/05/25 History atorvastatin 40 mg tablet 40 mg PO DAILY 08/05/25 08/05/25 History cholecalciferol (vitamin D3) 25 mcg PO DAILY 08/05/25 08/05/25 History citalopram 10 mg tablet 10 mg PO DAILY 08/05/25 08/05/25 History ezetimibe 10 mg tablet 10 mg PO DAILY 08/05/25 08/05/25 History folic acid 1 mg tablet 1 mg PO DAILY 08/05/25 08/05/25 History losartan 50 mg tablet 50 mg PO DAILY 08/05/25 08/05/25 History metoprolol succinate 100 mg 100 mg PO DAILY 08/05/25 08/05/25 History tablet,extended release 24 hr omeprazole 20 mg capsule,delayed 20 mg PO DAILY 08/05/25 08/05/25 History release sodium bicarbonate 650 mg tablet 1,300 mg PO BID 08/05/25 08/05/25 History spironolactone 25 mg tablet 12.5 mg PO DAILY 08/05/25 08/05/25 History Patient History Medical History Acute kidney injury superimposed on CKD Cognitive impairment Acute metabolic encephalopathy Social History Smoking Status: Never smoker Second Hand Exposure: No; Do You Dip or Chew Tobacco: No; Hx Alcohol Use: No Hx Substance Use: No Preferred Language: Emirati Communication Ability: Effective Nursery Teacher Required: No Beliefs That Will Affect Care: None Current Living Situation: Spouse Feels Safe at Home: Yes Assistive Devices: Walker and Wheelchair Review of Systems Review of Systems: Unobtainable due to cognitive status Physical Exam Constitutional: + ill appearing; no acute distress Neck: normal visual inspection and trachea midline Respiratory: normal respiratory effort and + cough; no respiratory distress and no labored breathing Auscultation: + diminished lung sounds (left lung); no crackles, no rales, no rhonchi and no wheezes Cardiovascular: Rate/Rhythm: + irregularly irregular Heart Sounds: normal S1 and normal S2 Vessels: dorsalis pedis pulses present; no JVD Extremities: + edema (+2 BLE) Skin: no rashes, warm and dry Psychiatric: Orientation: alert awake to verbal stimuli, but does not answer questions at this time Results & Data Vital Signs (Past 12 Hours) Vital Signs Temp Pulse Pulse Resp BP BP Pulse Ox 08/05/25 14:14 77 17 142/89 H 99 08/05/25 12:29 85 16 147/103 H 95 08/05/25 10:32 83 18 94 08/05/25 10:32 83 18 116/79 94 08/05/25 10:32 94 08/05/25 10:32 36.4 C L 83 18 116/79 94 08/05/25 10:22 80 O2 Del Method O2 Flow Rate 08/05/25 14:14 Nasal Cannula 2 08/05/25 12:29 Nasal Cannula 2 08/05/25 10:32 Nasal Cannula 2 08/05/25 10:32 Nasal Cannula 2 08/05/25 10:32 Nasal Cannula 2 08/05/25 10:32 Nasal Cannula 2 08/05/25 10:22 Laboratory Results Cardiac Enzymes 08/05/25 08/05/25 08/05/25 Range/Units 10:25 11:30 12:40 AST 111 H (13-39) U/L Troponin I High Sens 3592.5 H* 3414.1 H* (0-14) pg/ml B-Natriuretic Peptide 2697 H (0-100) pg/ml Coagulation 08/05/25 Range/Units 11:30 B-Natriuretic Peptide 2697 H (0-100) pg/ml CBC 08/05/25 Range/Units 10:25 WBC 8.78 (4.8-10.8) K/ul RBC 3.21 L (4.20-5.40) M/uL Hgb 9.7 L (12.0-16.0) g/dl Hct 31.9 L (37.0-47.0) % Plt Count 221 (130-400) K/uL Neut # (Auto) 6.30 (1.40-6.50) K/uL Lymph # (Auto) 1.46 (1.20-3.40) K/uL [place] # (Auto) 0.76 H (0.11-0.59) K/uL Eos # (Auto) 0.03 (0.00-0.50) K/uL Baso # (Auto) 0.07 (0.00-0.20) K/uL Comprehensive Metabolic Panel 08/05/25 Range/Units 10:25 Sodium 140 (136-145) mmol/L Potassium 4.2 (3.5-5.1) mmol/L Chloride 99 (98-107) mmol/L Carbon Dioxide 29 (21-32) mmol/L BUN 50 H (6-23) mg/dl Creatinine 2.90 H (0.6-1.2) mg/dl Glucose 125 H (70-99(Fasting)) mg/dl Calcium 9.0 (8.6-10.3) mg/dl AST 111 H (13-39) U/L ALT 118 H (7-52) U/L Alkaline Phosphatase 171 H (34-104) U/L Total Protein 6.4 (6.0-8.3) gm/dl Albumin 3.3 L (3.4-5.0) gm/dl Intake and Output 08/05/25 08/05/25 08/05/25 06:59 14:59 22:59 Other: Weight 55.8 kg Weight Measurement Method Built in [facility] Patient Weight 08/06/25 06:59 Weight 55.8 kg Diagnostic Findings Echocardiogram 07/02/2025 [facility] Interpretation Summary The examination is adequate to evaluate the referral indication. The qualitative LV ejection fraction is 25-29% (severely reduced). There is diffuse hypokinesis. The right ventricular cavity is mildly dilated. The right ventricular systolic function is mildly reduced. Mild aortic valve regurgitation is present. The estimated pulmonary artery systolic pressure is 43 mmHg. Mild pulmonary hypertension is present. PG Care Time/CCT Total # of Minutes Spent Total Time Spent with Patient: Total time spent is greater than 50% in coordination of care (as documented) at patient's floor/unit and/or counseling patient: [place] [address] IN/OBS CONSULT LVL 5,80M Patient Type New Diagnoses NSTEMI (non-ST elevation myocardial infarction) I21.4 ESRD (end stage renal disease) N18.6 Pleural effusion J90 HFrEF (heart failure with reduced ejection fraction) I50.20 Time Spent (min) 50
--- NOTE | 2025-08-05 14:40 | History & Physical Report ---
Date of Service August 05, 2025 Assessment & Plan (1) Lethargy: (2) Pleural effusion: (3) NSTEMI (non-ST elevation myocardial infarction): (4) ESRD (end stage renal disease): Plan: Patient is 84 year old female with PMH End-stage renal disease, recently sta rted on hemodialysis,, DM I, anemia of chronic disease, PAF s/p left atrial appendage occluder device placement in March 2024, HTN, HLD, chronic diastolic HF, history of meningioma s/p resection in 2014, multinodular goiter, cerebral amyloid angiopathy with history of cerebral bleed, TIA, cognitive impairment presenting with weakness and drowsiness x 2 to 3 days. WEAKNESS, ACUTE HYPOXIA LARGE LEFT PLEURAL EFFUSION VS. PNEUMONIA ESRD on HD Cardiomyopathy EF 25% Currently on 2 L of O2 via nasal cannula Chest x-ray showing large pleural effusion versus consolidation CT chest ordered check for Respiratory panel, MRSA nasal swab blood cultures Nephrology service consulted- plan for HD tomorrow as patient unstable from cardiology standpoint will start antibiotics once CT chest results are available TROPONIN ELEVATION POSSIBLE NSTEMI diagnosed with Cardiomyopathy EF 25% last July at [facility] no report of chest pain as per family Anticoagulation contraindicated as per family due to history of cerebral bleed, cerebral amyloid angiopathy Echo ordered continue Metoprolol, Aspirin, Atorvastatin Cardiology consulted ENCEPHALOPATHY, LETHARGY likely secondary to above CT head negative VBG no hypercapnea from Rivastigmine? Neurology consulted Other chronic medical problems: DM1- pharmacy glycemic consult Hypertension Paroxysmal A-fib status post left atrial appendage placement- on Metoprolol and Aspirin Cerebral amyloid angiopathy with history of cerebral bleed TIA History of meningioma s/p resection 2014 DVT prophylaxis SCDs for now CODE STATUS Full code as per Channing at the bedside Disposition Admit to PCU Total time spent 80 minutes including review of outpatient records, discussion with ER provider, providing care for patient, etc. plan of care discussed with patient's Channing and son Regis in detail and at length all questions answered they are understanding, agreeable, comfortable with the plan of care History of Present Illness Chief Complaint: Weakness and drowsiness x 2 to 3 days. Primary Care Provider: Cecilia Madden DO Patient is 84 year old female with PMH End-stage renal disease, recently started on hemodialysis,, DM I, anemia of chronic disease, PAF s/p left atrial appendage occluder device placement in March 2024, HTN, HLD, chronic diastolic HF, history of meningioma s/p resection in 2014, multinodular goiter, cerebral amyloid angiopathy with history of cerebral bleed, TIA, cognitive impairment presenting with weakness and drowsiness x 2 to 3 days. History obtained from ER provider, [facility] records, Channing, and son understand at the bedside. Patient was admitted to [facility] last July for possible status epilepticus, subsequently transferred to [facility]. Status epilepticus ruled out, seizure-like activity/twitching attributed to rivastigmine. She was also started on hemodialysis while at [facility]. Also she was found to have cardiomyopathy With EF of 25%. She was subsequently transferred to [facility] and was discharged to home about 4 days ago. As per family, patient was doing fine at home. [place]'s Neurologist [place] advised patient to be restarted with Rivastigmine She was doing fine until 2 days ago when she started to weakness And drowsiness again. No fever or chills, headache, nausea vomiting, chest pain, shortness of breath, cough. She was noted to have abdominal bloating but no diarrhea or any problems with bowel movement. Due to weakness and drowsiness, patient wasBrought to the ER. Upon arrival, blood pressure 116/73 , 94% on 2 l. Troponin noted to be 3500, present 2100 EKG showing nonspecific T wave inversions in the inferior and anterior leads. BNP 2697 Creatinine 2.9 VBG 7.30 On exam, patient's Channing and son Regis at the bedside. Patient is sleeping, arousable to tactile stimuli, briefly answers yes or no, nods head, drifts back to sleep immediately. She appears comfortable, no signs of distress or pain. Allergies Allergy/AdvReac Type Severity Reaction Status Date / Time No Known Allergies Allergy Verified 07/16/25 11:05 Home Medications Medication Instructions Recorded Confirmed Type Aspirin Low-Strength 81 mg PO DAILY 08/05/25 08/05/25 History atorvastatin 40 mg tablet 40 mg PO DAILY 08/05/25 08/05/25 History cholecalciferol (vitamin D3) 25 mcg PO DAILY 08/05/25 08/05/25 History citalopram 10 mg tablet 10 mg PO DAILY 08/05/25 08/05/25 History ezetimibe 10 mg tablet 10 mg PO DAILY 08/05/25 08/05/25 History folic acid 1 mg tablet 1 mg PO DAILY 08/05/25 08/05/25 History losartan 50 mg tablet 50 mg PO DAILY 08/05/25 08/05/25 History metoprolol succinate 100 mg 100 mg PO DAILY 08/05/25 08/05/25 History tablet,extended release 24 hr omeprazole 20 mg capsule,delayed 20 mg PO DAILY 08/05/25 08/05/25 History release sodium bicarbonate 650 mg tablet 1,300 mg PO BID 08/05/25 08/05/25 History spironolactone 25 mg tablet 12.5 mg PO DAILY 08/05/25 08/05/25 History Past Med/Surg History Problem List HFrEF (heart failure with reduced ejection fraction) ESRD (end stage renal disease) NSTEMI (non-ST elevation myocardial infarction) Pleural effusion Lethargy Diastolic heart failure Acute kidney injury superimposed on stage 5 chronic kidney disease, not on chronic dialysis Pneumonia (Acute) Acute UTI (Acute) Syncope (Acute) Acute dehydration (Acute) Sepsis (Acute) Hypotension Syncope Abnormal urinalysis Delirium Acute dehydration (Acute) Anemia (Acute) ABEL (acute kidney injury) (Acute) Altered mental status (Acute) Memory changes Delirium due to multiple etiologies Anemia due to stage 4 chronic kidney disease Ambulatory dysfunction ABEL (acute kidney injury) Hyperkalemia Elevated troponin (Acute) Acute kidney injury superimposed on chronic kidney disease (Acute) Hypocalcemia (Acute) Acute hypokalemia (Acute) Acute confusion (Acute) Generalized weakness (Acute) Atrial fibrillation with controlled ventricular response Renal failure (ARF), acute on chronic Weakness COVID-19 virus infection (Acute) Medical History Acute kidney injury superimposed on CKD Cognitive impairment Acute metabolic encephalopathy Social History Smoking Status: Never smoker Second Hand Exposure: No; Do You Dip or Chew Tobacco: No; Hx Alcohol Use: No Hx Substance Use: No Preferred Language: Hungarian Communication Ability: Effective Social Organization Professor Required: No Beliefs That Will Affect Care: None Current Living Situation: Spouse Feels Safe at Home: Yes Assistive Devices: Walker and Wheelchair Review of Systems Review of Systems: all noted and negative except for above Physical Exam Physical Exam: General- lethargic, not in distress,breathing with no effort or accessory muscle use Head- atraumatic Eyes- PERRL, EOMI, anicteric ENT- oropharynx clear Neck- supple, no JVD Lungs- decreased breath sounds left mid to base, no wheezing or crackles Right lung clear Heart- normal rate, regular rhythm; no murmur, no gallop, no rub appreciated Abdomen- normal bowel sounds, nondistended, soft, nontender, no masses or hepatosplenomegaly Extremities- no pretibial edema, no calf tenderness; peripheral pulses intact Neuro-lethargic, no gross focal deficites noted Skin- warm & dry Results & Data Results & Data Vital Signs (Past 12 Hours) Vital Signs Temp Pulse Pulse Resp BP BP Pulse Ox 08/05/25 14:35 78 13 160/102 H 95 08/05/25 14:14 77 17 142/89 H 99 08/05/25 12:29 85 16 147/103 H 95 08/05/25 10:32 83 18 94 08/05/25 10:32 83 18 116/79 94 08/05/25 10:32 94 08/05/25 10:32 36.4 C L 83 18 116/79 94 08/05/25 10:22 80 O2 Del Method O2 Flow Rate 08/05/25 14:35 Nasal Cannula 2 08/05/25 14:14 Nasal Cannula 2 08/05/25 12:29 Nasal Cannula 2 08/05/25 10:32 Nasal Cannula 2 08/05/25 10:32 Nasal Cannula 2 08/05/25 10:32 Nasal Cannula 2 08/05/25 10:32 Nasal Cannula 2 08/05/25 10:22 all noted and reviewed including below Code Status & VTE Plan VTE Prophylaxis Plan VTE Prophylaxis will be ordered: Yes
--- NOTE | 2025-08-05 15:16 | Electrocardiogram Report ---
Test Reason : Blood Pressure : */* mmHG Vent. Rate : 82 BPM Atrial Rate : * BPM P-R Int : * ms QRS Dur : 82 ms QT Int : 438 ms P-R-T Axes : * -47 -78 degrees QTcB Int : 511 ms Atrial fibrillation Left axis deviation T wave abnormality, consider anterior ischemia Abnormal ECG When compared with ECG of 01-Jul-2025 05:41, QRS axis Shifted left T wave inversion now evident in Inferior leads T wave inversion now evident in Anterior leads Confirmed by Javi Brock ([id number]) on 08/05/2025 3:15:38 PM Referred By: REFERRED SELF Confirmed By: Javi Brock
--- NOTE | 2025-08-05 16:18 | CT Scan Report ---
CT OF THE CHEST WITHOUT IV CONTRAST CLINICAL HISTORY: Pleural effusion vs pneumonia. COMPARISON STUDY: Chest radiograph performed earlier today. Chest radiograph June 28, 2025. CT DOSE: 297.46 mGy.cm TECHNIQUE: Axial images of the chest were obtained without IV contrast. Images were reviewed in the axial, sagittal, and coronal planes. IV contrast was not administered for this examination. Automat ed exposure control was utilized for the study. A dose lowering technique was utilized adhering to t he principles of ALARA. FINDINGS: A dual lumen right internal jugular dialysis catheter is in place. The heart is moderately enlarged. Left atrial appendage occluder device is noted. There is a trace pericardial effusion. The re is decreased attenuation of the cardiac blood pool. Anasarca is noted. Large left and small right pleural effusions are present. Extensive left lower lobe airspace opacity with volume loss favors seg mental atelectasis. There is also segmental atelectasis within the left upper lobe. Mild ground glass opacities within the lungs are noted with mild interlobular septal thickening consistent with pulmon kareem edema. There is a small 2.6 cm subpleural airspace opacity within the right lower lobe on image 1 61. There is no pneumothorax. No thoracic lymphadenopathy is present. Several old right-sided rib fra ctures are present. There are numerous old left-sided rib fractures as well. There are also several a dditional suspected subacute left-sided rib fractures. There is an old sternal fracture. Mild thoraci c spine compression deformities are probably chronic. Asymmetric left breast edema is present. IMPRESSION: 1. Large left and small right pleural effusions. Compressive subsegmental left lower lobe and lingula r atelectasis. 2. Cardiomegaly with pulmonary edema. Anasarca. Nonspecific asymmetric left breast edema. 3. Small 2.6 cm subpleural right lower lobe alveolar opacity. This could represent alveolar pulmonary edema or a small focus of pneumonia. 4. Decreased attenuation of the cardiac blood pool which could indicate anemia. 5. Multiple subacute left-sided rib fractures. Numerous old bilateral rib fractures. No pneumothorax. ACT 112: Negative or not required by law. Electronically signed by: Jossue Ernandez M.D. 08/05/2025 4:16 PM
[2025-08-05 16:20] LABS: Chlamydia pneumoniae PCR Not Detected (NotDetected); Coronavirus 229E PCR Not Detected (NotDetected); Coronavirus CoV-2 (COVID19)PCR Not Detected (NotDetected); Coronavirus HKU1 PCR Not Detected (NotDetected); Coronavirus NL63 PCR Not Detected (NotDetected); Coronavirus OC43PCR Not Detected (NotDetected); Human Metapneumovirus PCR Not Detected (NotDetected); Parainfluenza Virus 1 PCR Not Detected (NotDetected); Parainfluenza Virus 2 PCR Not Detected (NotDetected); Parainfluenza Virus 3 PCR Not Detected (NotDetected); Parainfluenza Virus 4 PCR Not Detected (NotDetected); Respiratory Syncytial VirusPCR Not Detected (NotDetected); Rhinovirus/Enterovirus PCR Not Detected (NotDetected)
[2025-08-05] MEDS ORDERED: PHARMACY GLYCEMIC MGMT CONSULT PRN (16:33)
--- NOTE | 2025-08-05 17:11 | XCELERA ---
[id number]
[2025-08-05] MEDS ORDERED: INSULIN ASPART 100 UNITS/ML VIAL SC PRN (17:15)
[2025-08-05] MEDS ORDERED: GLUCAGON FOR INJ 1 MG VIAL SQ PRN (17:15)
[2025-08-05] MEDS ORDERED: GLUCOSE 10 TAB/TUBE PO PRN (17:15)
[2025-08-05] MEDS ORDERED: CARBOHYDRATES FOR HYPOGLYCEMIA PO PRN (17:15)
[2025-08-05] MEDS ORDERED: GLUCOSE 40% GEL 15 GM TUBE PO PRN (17:15)
[2025-08-05] MEDS ORDERED: DEXTROSE 50% 50 ML SYRINGE IV PRN (17:15)
[2025-08-05 18:04] LABS: Hep B Surface Ag with confirm Negative (Negative)
[2025-08-05] MEDS: RIVASTIGMINE 4.6 MG/24 HR TD SCH (21:11)
[2025-08-05] MEDS: SODIUM BICARBONATE 650 MG TAB PO SCH (21:12)
[2025-08-05] MEDS: INSULIN, Rapid-Acting PUMP SCH (21:13)
--- NOTE | 2025-08-05 21:32 | CT Scan Report ---
Exam(s): CT ABDOMEN + PELVIS Without Contrast EXAM: CT Abdomen and Pelvis Without Intravenous Contrast CLINICAL HISTORY: bloating, encephalopathy. TECHNIQUE: Axial computed tomography images of the abdomen and pelvis without intravenous contrast. CTDI is 12.69 mGy and DLP is 588.65 mGy-cm. Automated exposure control was utilized for the study. A dose lowering technique was utilized adhering to the principles of ALARA. COMPARISON: No relevant prior studies available. FINDINGS: Artifacts: Scatter artifact likely related to patient's arm position. Limitations: There is diffuse respiratory artifact, which degrades image quality throughout the examination. Lung bases: The left lower lobe is completely decompressed. Subsegmental patchy opacity involving the lateral aspect of the right lower lobe. Pleural space: Mild right and kismegwv-fh-qdmru left pleural effusions noted. Heart: Cardiomegaly. ABDOMEN: Liver: Unremarkable. Gallbladder and bile ducts: The gallbladder is mildly distended. No calcified gallstones. No obvious biliary dilatation. Pancreas: Evaluation of the pancreas is limited with respiratory artifact and lack of IV contrast. However, there abnormal at least 2 distinct cystic lesions noted in the pancreatic head measuring up to 2.3 cm in diameter and up to 2.5 cm in length. No ductal dilation involving the pancreatic tail. Spleen: Unremarkable. No splenomegaly. Adrenals: Unremarkable. No mass. Kidneys and ureters: Unremarkable. No obstructing stones. No hydronephrosis. Stomach and bowel: The stomach is decompressed with gastric wall thickening noted throughout. No evidence for bowel obstruction. Evaluation of the bowel mucosa is slightly limited without contrast; however, no definite focal asymmetry suggested. Blyz-ol-movurjkf stool burden. PELVIS: Appendix: No findings to suggest acute appendicitis. Bladder: Unremarkable. No stones. Reproductive: Unremarkable as visualized. ABDOMEN and PELVIS: Intraperitoneal space: Trace fluid in the dependent pelvis. No loculation. No free air. Bones/joints: A left hip arthroplasties noted. No acute osseous abnormality. No dislocation. Soft tissues: Diffuse soft tissue edema suggesting anasarca. Vasculature: Atherosclerotic disease. No abdominal aortic aneurysm. Lymph nodes: Unremarkable. No enlarged lymph nodes. IMPRESSION: 1. Diffuse soft tissue edema suggesting anasarca. 2. Mild right and ndjjwsfp-wm-kcafh left pleural effusions noted. 3. Evaluation of the pancreas is limited with respiratory artifact and lack of IV contrast. However, there abnormal at least 2 distinct cystic lesions noted in the pancreatic head measuring up to 2.3 cm in diameter and up to 2.5 cm in length. No ductal dilation involving the pancreatic tail. Differential consideration includes pancreatic pseudocyst versus benign and malignant cystic lesions of the pancreas. Recommend dedicated high-resolution imaging of the pancreas, ideally when the patient is able to breath hold for the examination. 4. Trace fluid in the dependent pelvis. No loculation. 5. No evidence for bowel obstruction. Evaluation of the bowel mucosa is slightly limited without contrast; however, no definite focal asymmetry suggested. Bodf-vc-nxyynrrb stool burden. No pneumoperitoneum. Electronically signed by: Hayes Streeter MD 08/05/25 21:31 PM
[2025-08-06 06:32] LABS: Hematocrit (blood only) 27.2 % (37.0-47.0); Hemoglobin 9.0 g/dl (12.0-16.0); Immature Granulocytes # (auto) 0.08 K/uL (0.01-0.20); Immature Granulocytes % (auto) 1.0 %; Mean Corpuscular Hemoglobin 32.5 pg (25.0-34.0); Mean Corpuscular Volume 98.2 fL (80.0-100.0); Platelet Count 193 K/uL (130-400); RDW Standard Deviation 65.1 fL (36.4-46.3); Red Blood Count 2.77 M/uL (4.20-5.40); White Blood Count 7.77 K/ul (4.8-10.8)
[2025-08-06 07:12] LABS: Alanine Aminotransferase 75.0 U/L (7-52); Albumin Globulin Ratio 1.0 (0.9-2); Albumin Level 2.7 gm/dl (3.4-5.0); Alkaline Phosphatase 134.0 U/L (34-104); Anion Gap 12.0 (3-11); Bilirubin,Total 0.5 mg/dl (0.2-1.0); Blood Urea Nitrogen 53.0 mg/dl (6-23); Calcium 8.7 mg/dl (8.6-10.3); Carbon Dioxide 27.0 mmol/L (21-32); Chloride 101.0 mmol/L (98-107); Creatinine Clr Calc Pharmacy 11.2 ml/min; Globulin 2.6 gm/dl (2.5-4.0); Glucose 101.0 mg/dl (70-99(Fasting)); Potassium 4.2 mmol/L (3.5-5.1); Sodium 140.0 mmol/L (136-145); Total Protein 5.3 gm/dl (6.0-8.3)
[2025-08-06] MEDS: ASPIRIN 81 MG ECTAB PO SCH (08:47)
[2025-08-06] MEDS: FOLIC ACID 1 MG TAB PO SCH (08:48)
[2025-08-06] MEDS: EZETIMIBE 10 MG TAB PO SCH (08:48)
[2025-08-06] MEDS: ATORVASTATIN 40 MG TAB PO SCH (08:48)
[2025-08-06] MEDS: CHOLECALCIFEROL 25 MCG (1000 UNITS) TAB PO SCH (08:48)
[2025-08-06] MEDS: CITALOPRAM 20 MG TAB PO SCH (08:52)
[2025-08-06] MEDS: DOCUSATE SODIUM/SENNA 50/8.6MG TAB PO SCH (08:52)
--- NOTE | 2025-08-06 08:56 | Nephrology Consultation ---
Date of Consultation August 06, 2025 Assessment & Plan (1) ESRD (end stage renal disease): profound volume overload in the setting of ESRD and HFrEF. >HD today 4 hrs w/ as aggressive UF as she will tolerate; at OP HD she has routinely not hit UF goals d/t hypotension; limit UFR as below -no heparin in HD -lowered FR to 1.2 L for now -likely to need daily HD for several days to optimize vol status w/ additional help from thoracentesis as appropriate >note rivastigmine not removed by HD; no dose adjustment needed typically >> did talk to about challenges of managing this complex pt with teams from out of state adjusting medications; he states he's working to consolidate care Care reviewed by [facility] w/ Dr Waller regarding HD timing/goals, thoracentesis plans; we are in agreement. Care reviewed w/ for 20 minutes. (2) NSTEMI (non-ST elevation myocardial infarction): >high risk for worsening cardiac status w/ active NSTEMI and hemodynamic changes inevitable w/ dialysis. that said, we must remove fluid to improve her volume status and stabilize her HF/cardiac issues best we can >> slow/gentle/frequent HD best we can in hospital is most appropriate for her; do not believe that CRRT is obligate here but will monitor for need (would require transfer) -in the setting of new HFrEF (from last month at 25%) and permanent AFib d/t this will keep UF rate below 7.5 ml/kg/hr for medical mgt per cardiology > retimed metoprolol, cozaar doses so she has more BP for tx and so that BB is not removed w/ dialysis (3) Pleural effusion: for tap (4) Anemia: some is dilutional iron stores at [facility] on 07/26 t sat 26%; no need for venofer; avoid VALERIE w/ active PA (5) Generalized weakness: improved some today; fairly poor functional status at baseline > transfers w/ asst at best Plan complex case. time spent 85 minutes. History of Present Illness Reason for Consultation: Volume Overload Requesting Physician: Dr Holley Attending Physician: David Waller, History of Present Illness 84-year-old female whom I am asked to evaluate for volume overload was admitted yesterday afternoon with NSTEMI, large left pleural effusion, severe biventricular heart failure With 2 worsening name generalized weakness and drowsiness. 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 Status post recent admission [facility] July 01 to for encephalopathy, after being transferred there from here with concern for status epilepticus during admission for right lower lobe pneumonia after a syncopal episode with progressive encephalopathy and on EEG seizure like activity. several new medically complex diagnoses during this admission: New heart failure with reduced ejection fraction, new Start on dialysis for CKD 5. on arrival to [facility], status epilepticus Deemed low on differential diagnosis. Per rivastigmine was discontinued permanently and her mentation improved. She was started on hemodialysis during that admission. Tunneled dialysis catheter was placed July 03 with subsequent malfunction and replacement July 12. Pleural effusion noted but no intervention required. She transferred to my care as an outpatient with intent to transition to peritoneal dialysis. She was Transferred for rehab to [facility] where our team oversaw her dialysis. Rivastigmine was not on discharge medications from rehab hospital but was on the patient's med list on presentation here. Her reports that the patient's neurologist in [place] recommended restarting rivastigmine 3-4 days prior to this admission. About a day after starting this, patienthad increased lower extremity edema cognitive decline and coughing. > home health aides have reported to dialysis team that patient does not receive her medications unless home health gives them and they are not there on the weekends. with her symptoms yesterday particularly the weakness, patient came to the Emergency Department instead of doing her routine Outpatient dialysis. I reviewed the case with the admitting team and deferred dialysis yesterday due to unstable cardiac status. Of note she has not been able to hit her OP target weight 52 kg past 2 txs and generally only tolerates about 2L UF d/t hypotension. I attributed some of this to her being home and returning to a regular home diet/settling back home after extended admissions above totalling nearly 4 wks. post tx wt on 08/02 was 54.5; post tx wt on 07/31 was 53.3 kg. Found on admission here to have an NSTEMI, pleural effusion large to moderate on the left. Thoracentesis recommended and For medical management of heart failure. pt currently is feeling significantly better today > more alert, hungry, denies chest pain, palpitations, worsening sob, hyperesthesias. voids daily but small amounts per > can't really quantify. abdominal bloating not bothersome to her. Allergies Allergy/AdvReac Type Severity Reaction Status Date / Time No Known Allergies Allergy Verified 07/16/25 11:05 Home Medications Medication Instructions Recorded Confirmed Type Aspirin Low-Strength 81 mg PO DAILY 08/05/25 08/05/25 History atorvastatin 40 mg tablet 40 mg PO DAILY 08/05/25 08/05/25 History cholecalciferol (vitamin D3) 25 mcg PO DAILY 08/05/25 08/05/25 History citalopram 10 mg tablet 10 mg PO DAILY 08/05/25 08/05/25 History ezetimibe 10 mg tablet 10 mg PO DAILY 08/05/25 08/05/25 History folic acid 1 mg tablet 1 mg PO DAILY 08/05/25 08/05/25 History losartan 50 mg tablet 50 mg PO DAILY 08/05/25 08/05/25 History metoprolol succinate 100 mg 100 mg PO DAILY 08/05/25 08/05/25 History tablet,extended release 24 hr omeprazole 20 mg capsule,delayed 20 mg PO DAILY 08/05/25 08/05/25 History release rivastigmine 4.6 mg/24 hour 4.6 mg transdermal DAILY 08/05/25 08/05/25 History transdermal patch sodium bicarbonate 650 mg tablet 1,300 mg PO BID 08/05/25 08/05/25 History spironolactone 25 mg tablet 12.5 mg PO DAILY 08/05/25 08/05/25 History Patient History Medical History Acute kidney injury superimposed on CKD Cognitive impairment Acute metabolic encephalopathy Social History Smoking Status: Never smoker Second Hand Exposure: No; Do You Dip or Chew Tobacco: No; Hx Alcohol Use: No Hx Substance Use: No Preferred Language: Romansh Communication Ability: Effective Profiler Hand Required: No Beliefs That Will Affect Care: None Current Living Situation: Spouse Feels Safe at Home: Yes Assistive Devices: Walker and Wheelchair Review of Systems 2 Review of Systems: All systems reviewed & are unremarkable except as noted in HPI & below Physical Exam 2 Constitutional: well developed (on 3L 02 eating breakfast heartily), + cachectic, + physical limitations, + frail appearing and cooperative; no acute distress Eyes: EOM intact bilaterally ENMT: Mouth: + dry oral mucous membranes Neck: no nuchal rigidity Respiratory: normal respiratory effort Auscultation: + diminished lung sounds Cardiovascular: Rate/Rhythm: + tachycardic and + irregularly irregular E xtremities: + edema (2+ BL ankles, trace -1+ pretibial) Gastrointestinal (Abdomen): Inspection/Auscultation: normal bowel sounds P ercussion/Palpation: abdomen soft; abdomen nontender Musculoskeletal: Extremities: + limited ROM of extremities and + abnormal strength Skin: no rashes, warm and dry Neurologic: awake and alert, tracking, feeding herself, limited speech but clearly follows conversation, no tremor Results & Data Vital Signs (Past 12 Hours) Vital Signs Temp Pulse Resp BP Pulse Ox O2 Del Method O2 Flow Rate 08/06/25 08:29 36.7 C 90 20 124/71 93 Nasal Cannula 3 08/06/25 03:07 36.4 C L 87 16 133/79 95 Nasal Cannula 2 08/05/25 23:42 36.1 C L 85 16 146/71 H 98 Nasal Cannula 2 Laboratory Results 08/06/25 05:40 08/06/25 05:[address] a/p 08/05 non con 1. Diffuse soft tissue edema suggesting anasarca. 2. Mild right and jpkaztpm-ay-kcllo left pleural effusions noted. 3. Evaluation of the pancreas is limited with respiratory artifact and lack of IV contrast. However, there abnormal at least 2 distinct cystic lesions noted in the pancreatic head measuring up to 2.3 cm in diameter and up to 2.5 cm in length. No ductal dilation involving the pancreatic tail. Differential consideration includes pancreatic pseudocyst versus benign and malignant cystic lesions of the pancreas. Recommend dedicated high-resolution imaging of the pancreas, ideally when the patient is able to breath hold for the examination. 4. Trace fluid in the dependent pelvis. No loculation. 5. No evidence for bowel obstruction. Evaluation of the bowel mucosa is slightly limited without contrast; however, no definite focal asymmetry suggested. Roic-vf-fxhvjzhd stool burden. No pneumoperitoneum. CT chest 08/05 non con 1. Large left and small right pleural effusions. Compressive subsegmental left lower lobe and lingular atelectasis. 2. Cardiomegaly with pulmonary edema. Anasarca. Nonspecific asymmetric left breast edema. 3. Small 2.6 cm subpleural right lower lobe alveolar opacity. This could represent alveolar pulmonary edema or a small focus of pneumonia. 4. Decreased attenuation of the cardiac blood pool which could indicate anemia. 5. Multiple subacute left-sided rib fractures. Numerous old bilateral rib fractures. No pneumothorax. (4) Anemia Anemia type: unspecified type Qualified Code(s): D64.9 - Anemia, unspecified
[2025-08-06] MEDS: SPIRONOLACTONE 12.5 MG TAB PO SCH (09:30)
[2025-08-06] MEDS: METOPROLOL SUCC 50MG EXT REL TAB PO SCH ×2 (09:31→20:28)
[2025-08-06] MEDS: LOSARTAN POTASSIUM 50 MG TAB PO SCH ×2 (09:31→20:28)
[2025-08-06] MEDS ORDERED: SODIUM CHLORIDE 0.9% 1,000 ML IV PRN (09:44)
--- NOTE | 2025-08-06 13:28 | Hospitalist Progress Note ---
Date of Service August 06, 2025 Assessment & Plan (1) Acute metabolic encephalopathy: Plan: Suspect due to Exelon patch (2) Acute on chronic heart failure with reduced ejection fraction (HFrEF, <= 40%) and combined systolic and diastolic dysfunction: (3) NSTEMI (non-ST elevation myocardial infarction): (4) Chronic bilateral pleural effusions: (5) End-stage renal disease on hemodialysis: (6) Anemia, chronic renal failure: (7) Chronic atrial fibrillation: (8) Cerebral amyloid angiopathy: (9) Pulmonary hypertension: (10) Diabetes mellitus type 2, noninsulin dependent: (11) Cognitive impairment: Plan Patient 84-year-old female with multiple medical issues has been declining over the past few months with multiple hospitalizations returns to the emergency department/hospital again with with seems to be the most significant complaint is altered mental status. Patient has had this occur before. Previous hospitalization seems as though the encephalopathy was tied to the Exelon patch. It appears that the Exelon patch was restarted about 3 days ago at the recommendation of her neurologist in [place]. Reviewing her discharge summary and recommendations from her hospitalization at [facility] was recommended that the Exelon patch be discontinued indefinitely. High suspicion patient's encephalopathy may be related to the Exelon patch. Will discontinue the patch at this time and await further recommendations from neurology Patient also has significant pleural effusions on imaging, relatively asymptomatic, however too much to be dialyzed. Communication with pulmonary who was consulted to evaluate pleural effusions. They are proceeding with consulting interventional radiology for thoracentesis of the left pleural effusion, anticipate this will help the patient feel that she can take deeper breaths. Troponins are consistent with non-STEMI. Cardiology recommendations noted. Medical management, no plans for cardiac catheterization, no plans for heparin drip. Patient chronic atrial fibrillation, however not on anticoagulation due to to history of cerebral amyloid with microhemorrhages and patient has had a left atrial appendage closure. Communication with nephrology, planning on hemodialysis this afternoon. Adjusted antihypertensive medications to optimize ability to remove fluid with hemodialysis and minimize risks of hypotension Patient, and son via phone was updated while at the bedside. Discussed rib fractures. They were unaware of the fractures, however she did have a fall at home back in February. This may have been the initial trauma and chronic rib fractures that were seen. At this time appears to be asymptomatic and we will continue to monitor Also discussed with the and son that more than likely the patient will need skilled rehab after she is stabilized from this hospitalization. They agree and understand this. Prefer to have her do her rehabilitation [facility]. Will consult case management. They did state that they are contemplating moving back to [place]. Patient has reported history of diabetes mellitus type 2 and reviewing patient record. Check hemoglobin A1c. , Continue to monitor glucose with insulin coverage 62 minutes spent on evaluation patient bedside, communication with family, Communication with specialist, review of record, review of outside EMR, interpretation diagnostic testing, documentation and coordinating care Admission and Anticipated Discharge Date Admission Date: August 05, 2025 Subjective Patient only responds by lifting her head and looking at me. No verbal response. Patient sitting at bedside history obtained from him and his son he was on the phone during my evaluation. According to the as far as her mental status is concerned that has been waxing and waning for quite some time. She had hospitalization here with altered mental status so she was subsequently transferred to [facility] for concerns of possibly status epilepticus. He states that just about 3 days prior to this admission they did restart the Exelon patch at the recommendation of her neurologist in [place]. He states that she felt really good the first day of the patch but subsequently became more lethargic and less responsive the following days. He reports that she did not seem to complain too much of shortness of breath despite her large pleural effusions. They have been following with the routine hemodialysis. Did not complain in any chest pain as well. Physical Exam Physical Exam: Constitutional: Awake but minimally interactive HEENT: Mucous membranes moist. Lungs: Crackles upper lobes, dull and poor airflow lower lobes bilaterally left greater than right CV: S1-S2, irregular, systolic murmur Abdomen: Soft, nontender, nondistended Extremities: No significant edema Neuro: Nonverbal, minimally interactive, does lift her head and look at you when you call her name Psych: Cooperative, normal mood Results & Data Results & Data Vital Signs (Past 12 Hours) Vital Signs Temp Pulse Pulse Resp BP Pulse Ox O2 Del Method 08/06/25 10:51 37.1 C 93 H 24 104/66 94 Nasal Cannula 08/06/25 08:29 36.7 C 90 20 124/71 93 Nasal Cannula 08/06/25 08:00 91 H 08/06/25 08:00 Nasal Cannula 08/06/25 03:07 36.4 C L 87 16 133/79 95 Nasal Cannula O2 Flow Rate 08/06/25 10:51 3 08/06/25 08:29 3 08/06/25 08:00 08/06/25 08:00 08/06/25 03:07 2 Diagnostic Findings Reviewed imaging, laboratory and diagnostic studies. Pertinent findings as below. WBC 7.7 Hemoglobin 9.0 Platelets of 193 Creatinine 3.22, other electrolytes stable for end-stage renal disease LFTs mildly elevated but improved from previous Troponins reviewed, overall flat x 3 sets but significantly elevated from previous MRSA screen negative Respiratory viral panel negative Echocardiogram shows ejection fraction 20 to 25%, elevated right ventricular pressures, mild valvular dysfunction
--- NOTE | 2025-08-06 13:54 | Cardiology Progress Note ---
Date of Service August 06, 2025 Assessment & Plan (1) NSTEMI (non-ST elevation myocardial infarction): (2) ESRD (end stage renal disease): (3) Pleural effusion: (4) HFrEF (heart failure with reduced ejection fraction): Plan Assessment: 84 year old medically complex female admitted for cognitive decline, weakness and lower extremity swelling. High sensitivity troponin elevation with no acute ST-T wave elevation on EKG, in addition to missed HD treatment and elevated lactate levels. Chest xray with significant left pleural effusion. Cardiology consulted for further evaluation and recommendations. 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 HTN HLD IDDM Late onset type I ESRD on HD Dementia Multiple subacute and old b/l rib fractures Recommendations: awaiting Pulm eval and possible thoracentesis of L pleural effusion HD as per Renal correct and f/u electrolytes increased risk for complications associated with anticoagulation including risk for fall with multiple subacute and old rib fractures GDMT for HFrEF limited due to renal insufficiency and possible amyloid heart disease continue metoprolol cont losartan cont ASA cont statin adjust rate control meds keeping HR between 60 to 100 BPM and systolic BP between 100-140 mmHg adjust anti-HTN meds keeping systolic BP between 100-140 mmHg avoid hypovolemia keep patient euvolemic DVT prophylaxis maximize medical management as tolerated cardiac cath, procedure, RIBA dw patient's at bedside with patient's son on the phone once patient is medically optimized poor prognosis GOC - defer to primary DVT proph Admission and Anticipated Discharge Date Admission Date: August 05, 2025 Subjective Patient on exam is lying in bed in NAD; Patient is non-communicative. at bedside history and his son is on the phone. Patient appears more awake today. Breathing is stable Review of Systems Review of Systems: Unobtainable due to mental health condition Physical Exam Constitutional: + ill appearing; no acute distress Neck: normal visual inspection and trachea midline Respiratory: normal respiratory effort; no respiratory distress and no labored breathing Auscultation: + diminished lung sounds (left lung); no crackles, no rales, no rhonchi and no wheezes Cardiovascular: Rate/Rhythm: + irregularly irregular Heart Sounds: normal S1 and normal S2 Vessels: dorsalis pedis pulses present; no JVD Extremities: + edema (+1BLE) Skin: no rashes, warm and dry Psychiatric: Orientation: alert Results & Data Vital Signs (Past 12 Hours) Vital Signs Vital Signs Temp 37.1 C 08/06/25 10:51 Pulse 93 H 08/06/25 10:51 Resp 24 08/06/25 10:51 BP 104/66 08/06/25 10:51 Pulse Ox 94 08/06/25 10:51 O2 Del Method Nasal Cannula 08/06/25 10:51 O2 Flow Rate 3 08/06/25 10:51 Intake & Output 08/05/25 08/06/25 08/06/25 18:59 06:59 18:59 Intake Total 0 / 0 Balance 0 / 0 Weight 55.8 kg 53.6 kg Intake: Oral 0 / 0 Other: Weight Measurement Method Built in [facility] Built in [facility] Temp Pulse Pulse Resp BP Pulse Ox O2 Del Method 08/06/25 10:51 37.1 C 93 H 24 104/66 94 Nasal Cannula 08/06/25 08:29 36.7 C 90 20 124/71 93 Nasal Cannula 08/06/25 08:00 91 H 08/06/25 08:00 Nasal Cannula 08/06/25 03:07 36.4 C L 87 16 133/79 95 Nasal Cannula O2 Flow Rate 08/06/25 10:51 3 08/06/25 08:29 3 08/06/25 08:00 08/06/25 08:00 08/06/25 03:07 2 Laboratory Results Laboratory Results - last 48 hr 08/05/25 08/05/25 08/05/25 10:25 11:03 11:30 WBC 8.78 RBC 3.21 L Hgb 9.7 L POC Hgb 11.2 L Hct 31.9 L POC Hct 33 L MCV 99.4 MCH 30.2 MCHC 30.4 L RDW Std Deviation 67.6 H RDW Coeff of Sean 18.6 H Plt Count 221 MPV 11.3 Immature Gran % (Auto) 1.8 Neut % (Auto) 71.8 Lymph % (Auto) 16.6 [place] % (Auto) 8.7 Eos % (Auto) 0.3 Baso % (Auto) 0.8 Neut # (Auto) 6.30 Lymph # (Auto) 1.46 [place] # (Auto) 0.76 H Eos # (Auto) 0.03 Baso # (Auto) 0.07 Immature Gran # (Auto) 0.16 Absolute Nucleated RBC 0.04 Nucleated RBC % (auto) 0.5 VBG pH VBG pCO2 VBG pO2 VBG HCO3 VBG O2 Saturation VBG Base Excess POC Sodium 136 Sodium 140 POC Potassium 4.1 Potassium 4.2 POC Chloride 102 Chloride 99 Carbon Dioxide 29 POC Total CO2 27 Anion Gap 12 H POC Anion Gap 13.0 L POC BUN 44 H BUN 50 H Creatinine 2.90 H POC Creatinine 3.2 H Est Cr Clr Drug Dosing 12.9 eGFR 15.58 BUN/Creatinine Ratio 17.2 Glucose 125 H POC Glucose POC Glucose (other) 124 H Lactate 2.3 H* Calcium 9.0 POC Ioniz Calcium Ryan 1.06 L Phosphorus 4.0 Magnesium 2.4 Total Bilirubin 0.6 AST 111 H ALT 118 H Alkaline Phosphatase 171 H Ammonia 32.0 Troponin I High Sens 3592.5 H* B-Natriuretic Peptide 2697 H Total Protein 6.4 Albumin 3.3 L Globulin 3.1 Albumin/Globulin Ratio 1.1 TSH 0.228 L Free T4 1.48 Nasal Screen MRSA (PCR) Adenovirus (PCR) B. pertussis DNA (PCR) B.parapertussis DNA PCR C. pneumoniae DNA (PCR) Coronavirus OC43 (PCR) Coronavirus HKU1 (PCR) Coronavirus 229E (PCR) SARS-CoV-2 (PCR) Coronavirus NL63 (PCR) Hep Bs Antigen Hep Bs Antibody Hep Bs Antibody, Quant Human Metapneumovir PCR Influenza Type A (PCR) Influenza Type B (PCR) M. pneumoniae (PCR) Parainfluenza 1 (PCR) Parainfluenza 2 (PCR) Parainfluenza 3 (PCR) Parainfluenza 4 (PCR) RSV (PCR) Entero/Rhino (PCR) 08/05/25 08/05/25 08/05/25 12:12 12:40 12:53 WBC RBC Hgb POC Hgb Hct POC Hct MCV MCH MCHC RDW Std Deviation RDW Coeff of Sean Plt Count MPV Immature Gran % (Auto) Neut % (Auto) Lymph % (Auto) [place] % (Auto) Eos % (Auto) Baso % (Auto) Neut # (Auto) Lymph # (Auto) [place] # (Auto) Eos # (Auto) Baso # (Auto) Immature Gran # (Auto) Absolute Nucleated RBC Nucleated RBC % (auto) VBG pH 7.38 VBG pCO2 52 H VBG pO2 25 VBG HCO3 31 VBG O2 Saturation < 60.0 VBG Base Excess 4.7 POC Sodium Sodium POC Potassium Potassium POC Chloride Chloride Carbon Dioxide POC Total CO2 Anion Gap POC Anion Gap POC BUN BUN Creatinine POC Creatinine Est Cr Clr Drug Dosing eGFR BUN/Creatinine Ratio Glucose POC Glucose POC Glucose (other) Lactate 2.2 H* Calcium POC Ioniz Calcium Ryan Phosphorus Magnesium Total Bilirubin AST ALT Alkaline Phosphatase Ammonia Troponin I High Sens 3414.1 H* B-Natriuretic Peptide Total Protein Albumin Globulin Albumin/Globulin Ratio TSH Free T4 Nasal Screen MRSA (PCR) Adenovirus (PCR) B. pertussis DNA (PCR) B.parapertussis DNA PCR C. pneumoniae DNA (PCR) Coronavirus OC43 (PCR) Coronavirus HKU1 (PCR) Coronavirus 229E (PCR) SARS-CoV-2 (PCR) Coronavirus NL63 (PCR) Hep Bs Antigen Hep Bs Antibody Hep Bs Antibody, Quant Human Metapneumovir PCR Influenza Type A (PCR) Influenza Type B (PCR) M. pneumoniae (PCR) Parainfluenza 1 (PCR) Parainfluenza 2 (PCR) Parainfluenza 3 (PCR) Parainfluenza 4 (PCR) RSV (PCR) Entero/Rhino (PCR) 08/05/25 08/05/25 08/05/25 15:08 16:53 20:31 WBC RBC Hgb POC Hgb Hct POC Hct MCV MCH MCHC RDW Std Deviation RDW Coeff of Sean Plt Count MPV Immature Gran % (Auto) Neut % (Auto) Lymph % (Auto) [place] % (Auto) Eos % (Auto) Baso % (Auto) Neut # (Auto) Lymph # (Auto) [place] # (Auto) Eos # (Auto) Baso # (Auto) Immature Gran # (Auto) Absolute Nucleated RBC Nucleated RBC % (auto) VBG pH VBG pCO2 VBG pO2 VBG HCO3 VBG O2 Saturation VBG Base Excess POC Sodium Sodium POC Potassium Potassium POC Chloride Chloride Carbon Dioxide POC Total CO2 Anion Gap POC Anion Gap POC BUN BUN Creatinine POC Creatinine Est Cr Clr Drug Dosing eGFR BUN/Creatinine Ratio Glucose POC Glucose 113 H POC Glucose (other) Lactate Calcium POC Ioniz Calcium Ryan Phosphorus Magnesium Total Bilirubin AST ALT Alkaline Phosphatase Ammonia Troponin I High Sens 3580.5 H* B-Natriuretic Peptide Total Protein Albumin Globulin Albumin/Globulin Ratio TSH Free T4 Nasal Screen MRSA (PCR) Negative Adenovirus (PCR) Not Detected B. pertussis DNA (PCR) Not Detected B.parapertussis DNA PCR Not Detected C. pneumoniae DNA (PCR) Not Detected Coronavirus OC43 (PCR) Not Detected Coronavirus HKU1 (PCR) Not Detected Coronavirus 229E (PCR) Not Detected SARS-CoV-2 (PCR) Not Detected Coronavirus NL63 (PCR) Not Detected Hep Bs Antigen Negative Hep Bs Antibody Non-Immune Hep Bs Antibody, Quant < 3.00 Human Metapneumovir PCR Not Detected Influenza Type A (PCR) Not Detected Influenza Type B (PCR) Not Detected M. pneumoniae (PCR) Not Detected Parainfluenza 1 (PCR) Not Detected Parainfluenza 2 (PCR) Not Detected Parainfluenza 3 (PCR) Not Detected Parainfluenza 4 (PCR) Not Detected RSV (PCR) Not Detected Entero/Rhino (PCR) Not Detected 08/06/25 08/06/25 08/06/25 03:04 05:40 07:36 WBC 7.77 RBC 2.77 L Hgb 9.0 L POC Hgb Hct 27.2 L POC Hct MCV 98.2 MCH 32.5 MCHC 33.1 RDW Std Deviation 65.1 H RDW Coeff of Sean 17.8 H Plt Count 193 MPV 11.5 Immature Gran % (Auto) 1.0 Neut % (Auto) 73.1 Lymph % (Auto) 15.8 [place] % (Auto) 9.0 Eos % (Auto) 0.5 Baso % (Auto) 0.6 Neut # (Auto) 5.67 Lymph # (Auto) 1.23 [place] # (Auto) 0.70 H Eos # (Auto) 0.04 Baso # (Auto) 0.05 Immature Gran # (Auto) 0.08 Absolute Nucleated RBC Nucleated RBC % (auto) VBG pH VBG pCO2 VBG pO2 VBG HCO3 VBG O2 Saturation VBG Base Excess POC Sodium Sodium 140 POC Potassium Potassium 4.2 POC Chloride Chloride 101 Carbon Dioxide 27 POC Total CO2 Anion Gap 12 H POC Anion Gap POC BUN BUN 53 H Creatinine 3.22 H D POC Creatinine Est Cr Clr Drug Dosing 11.2 eGFR 13.74 BUN/Creatinine Ratio 16.5 Glucose 101 H POC Glucose 111 H 98 POC Glucose (other) Lactate Calcium 8.7 POC Ioniz Calcium Ryan Phosphorus Magnesium Total Bilirubin 0.5 AST 47 H ALT 75 H Alkaline Phosphatase 134 H Ammonia Troponin I High Sens B-Natriuretic Peptide Total Protein 5.3 L Albumin 2.7 L Globulin 2.6 Albumin/Globulin Ratio 1.0 TSH Free T4 Nasal Screen MRSA (PCR) Adenovirus (PCR) B. pertussis DNA (PCR) B.parapertussis DNA PCR C. pneumoniae DNA (PCR) Coronavirus OC43 (PCR) Coronavirus HKU1 (PCR) Coronavirus 229E (PCR) SARS-CoV-2 (PCR) Coronavirus NL63 (PCR) Hep Bs Antigen Hep Bs Antibody Hep Bs Antibody, Quant Human Metapneumovir PCR Influenza Type A (PCR) Influenza Type B (PCR) M. pneumoniae (PCR) Parainfluenza 1 (PCR) Parainfluenza 2 (PCR) Parainfluenza 3 (PCR) Parainfluenza 4 (PCR) RSV (PCR) Entero/Rhino (PCR) 08/06/25 11:14 WBC RBC Hgb POC Hgb Hct POC Hct MCV MCH MCHC RDW Std Deviation RDW Coeff of Sean Plt Count MPV Immature Gran % (Auto) Neut % (Auto) Lymph % (Auto) [place] % (Auto) Eos % (Auto) Baso % (Auto) Neut # (Auto) Lymph # (Auto) [place] # (Auto) Eos # (Auto) Baso # (Auto) Immature Gran # (Auto) Absolute Nucleated RBC Nucleated RBC % (auto) VBG pH VBG pCO2 VBG pO2 VBG HCO3 VBG O2 Saturation VBG Base Excess POC Sodium Sodium POC Potassium Potassium POC Chloride Chloride Carbon Dioxide POC Total CO2 Anion Gap POC Anion Gap POC BUN BUN Creatinine POC Creatinine Est Cr Clr Drug Dosing eGFR BUN/Creatinine Ratio Glucose POC Glucose 178 H POC Glucose (other) Lactate Calcium POC Ioniz Calcium Ryan Phosphorus Magnesium Total Bilirubin AST ALT Alkaline Phosphatase Ammonia Troponin I High Sens B-Natriuretic Peptide Total Protein Albumin Globulin Albumin/Globulin Ratio TSH Free T4 Nasal Screen MRSA (PCR) Adenovirus (PCR) B. pertussis DNA (PCR) B.parapertussis DNA PCR C. pneumoniae DNA (PCR) Coronavirus OC43 (PCR) Coronavirus HKU1 (PCR) Coronavirus 229E (PCR) SARS-CoV-2 (PCR) Coronavirus NL63 (PCR) Hep Bs Antigen Hep Bs Antibody Hep Bs Antibody, Quant Human Metapneumovir PCR Influenza Type A (PCR) Influenza Type B (PCR) M. pneumoniae (PCR) Parainfluenza 1 (PCR) Parainfluenza 2 (PCR) Parainfluenza 3 (PCR) Parainfluenza 4 (PCR) RSV (PCR) Entero/Rhino (PCR) Diagnostic Findings Laboratory Results WBC 7.77 K/ul (4.8-10.8) 08/06/25 05:40 RBC 2.77 M/uL (4.20-5.40) L 08/06/25 05:40 Hgb 9.0 g/dl (12.0-16.0) L 08/06/25 05:40 POC Hgb 11.2 g/dl (12.0-16.0) L 08/05/25 10: Hct 27.2 % (37.0-47.0) L 08/06/25 05:40 POC Hct 33 % (37-47) L 08/05/25 10: MCV 98.2 fL (80.0-100.0) 08/06/25 05:40 MCH 32.5 pg (25.0-34.0) 08/06/25 05:40 MCHC 33.1 g/dL (32.0-36.0) 08/06/25 05:40 RDW Std Deviation 65.1 fL (36.4-46.3) H 08/06/25 05:40 RDW Coeff of Sean 17.8 % (11.5-14.5) H 08/06/25 05:40 Plt Count 193 K/uL (130-400) 08/06/25 05:40 MPV 11.5 fL (9.4-12.4) 08/06/25 05:40 Immature Gran % (Auto) 1.0 % 08/06/25 05:40 Neut % (Auto) 73.1 % 08/06/25 05:40 Lymph % (Auto) 15.8 % 08/06/25 05:40 [place] % (Auto) 9.0 % 08/06/25 05:40 Eos % (Auto) 0.5 % 08/06/25 05:40 Baso % (Auto) 0.6 % 08/06/25 05:40 Neut # (Auto) 5.67 K/uL (1.40-6.50) 08/06/25 05:40 Lymph # (Auto) 1.23 K/uL (1.20-3.40) 08/06/25 05:40 [place] # (Auto) 0.70 K/uL (0.11-0.59) H 08/06/25 05:40 Eos # (Auto) 0.04 K/uL (0.00-0.50) 08/06/25 05:40 Baso # (Auto) 0.05 K/uL (0.00-0.20) 08/06/25 05:40 Immature Gran # (Auto) 0.08 K/uL (0.01-0.20) 08/06/25 05:40 Absolute Nucleated RBC 0.04 K/uL (0.00-0.12) 08/05/25 10:25 Nucleated RBC % (auto) 0.5 % 08/05/25 10:25 VBG pH 7.38 (7.36-7.41) 08/05/25 12:12 VBG pCO2 52 mmHg (38-50) H 08/05/25 12:12 VBG pO2 25 mmHg 08/05/25 12:12 VBG HCO3 31 mmol/L 08/05/25 12:12 VBG O2 Saturation < 60.0 % 08/05/25 12:12 VBG Base Excess 4.7 mEq/L 08/05/25 12:12 POC Sodium 136 mmol/L (135-144) 08/05/25 10:25 Sodium 140 mmol/L (136-145) 08/06/25 05:40 POC Potassium 4.1 mmol/L (3.3-5.0) 08/05/25 10: Potassium 4.2 mmol/L (3.5-5.1) 08/06/25 05:40 POC Chloride 102 mmol/L (101-112) 08/05/25 10: Chloride 101 mmol/L (98-107) 08/06/25 05:40 Carbon Dioxide 27 mmol/L (21-32) 08/06/25 05:40 POC Total CO2 27 mmol/L (24-31) 08/05/25 10:25 Anion Gap 12 (3-11) H 08/06/25 05:40 POC Anion Gap 13.0 mmol/L (16-25) L 08/05/25 10:25 POC BUN 44 mg/dl (7-18) H 08/05/25 10:25 BUN 53 mg/dl (6-23) H 08/06/25 05:40 Creatinine 3.22 mg/dl (0.6-1.2) H D 08/06/25 05:40 POC Creatinine 3.2 mg/dl (0.6-1.3) H 08/05/25 10:25 Est Cr Clr Drug Dosing 11.2 ml/min 08/06/25 05:40 eGFR 13.74 08/06/25 05:40 BUN/Creatinine Ratio 16.5 (10-20) 08/06/25 05:40 Glucose 101 mg/dl (70-99(Fasting)) H 08/06/25 05:40 POC Glucose 178 mg/dl (70-99) H 08/06/25 11:14 POC Glucose (other) 124 mg/dl (70-99) H 08/05/25 10:25 Lactate 2.2 mmol/L (0.4-2.0) H* 08/05/25 12:53 Calcium 8.7 mg/dl (8.6-10.3) 08/06/25 05:40 POC Ioniz Calcium Ryan 1.06 mmol/l (1.12-1.32) L 08/05/25 10:25 Phosphorus 4.0 mg/dl (2.5-4.9) 08/05/25 10:25 Magnesium 2.4 mg/dl (1.7-2.4) 08/05/25 10:25 Total Bilirubin 0.5 mg/dl (0.2-1.0) 08/06/25 05:40 AST 47 U/L (13-39) H 08/06/25 05:40 ALT 75 U/L (7-52) H 08/06/25 05:40 Alkaline Phosphatase 134 U/L (34-104) H 08/06/25 05:40 Ammonia 32.0 umol/L (18-72) 08/05/25 11:30 Troponin I High Sens 3580.5 pg/ml (0-14) H* 08/05/25 16:53 B-Natriuretic Peptide 2697 pg/ml (0-100) H 08/05/25 11:30 Total Protein 5.3 gm/dl (6.0-8.3) L 08/06/25 05:40 Albumin 2.7 gm/dl (3.4-5.0) L 08/06/25 05:40 Globulin 2.6 gm/dl (2.5-4.0) 08/06/25 05:40 Albumin/Globulin Ratio 1.0 (0.9-2) 08/06/25 05:40 TSH 0.228 uIu/ml (0.300-4.500) L 08/05/25 10: Free T4 1.48 ng/dl (0.61-1.60) 08/05/25 10: Nasal Screen MRSA (PCR) Negative (Negative) 08/05/25 15:08 Adenovirus (PCR) Not Detected (NotDetected) 08/05/25 15:08 B. pertussis DNA (PCR) Not Detected (NotDetected) 08/05/25 15:08 B.parapertussis DNA PCR Not Detected (NotDetected) 08/05/25 15:08 C. pneumoniae DNA (PCR) Not Detected (NotDetected) 08/05/25 15:08 Coronavirus OC43 (PCR) Not Detected (NotDetected) 08/05/25 15:08 Coronavirus HKU1 (PCR) Not Detected (NotDetected) 08/05/25 15:08 Coronavirus 229E (PCR) Not Detected (NotDetected) 08/05/25 15:08 SARS-CoV-2 (PCR) Not Detected (NotDetected) 08/05/25 15:08 Coronavirus NL63 (PCR) Not Detected (NotDetected) 08/05/25 15:08 Hep Bs Antigen Negative (Negative) 08/05/25 16:53 Hep Bs Antibody Non-Immune 08/05/25 16:53 Hep Bs Antibody, Quant < 3.00 mIU/mL (>or=10mIU/mL Immune) 08/05/25 16:53 Human Metapneumovir PCR Not Detected (NotDetected) 08/05/25 15:08 Influenza Type A (PCR) Not Detected (NotDetected) 08/05/25 15:08 Influenza Type B (PCR) Not Detected (NotDetected) 08/05/25 15:08 M. pneumoniae (PCR) Not Detected (NotDetected) 08/05/25 15:08 Parainfluenza 1 (PCR) Not Detected (NotDetected) 08/05/25 15:08 Parainfluenza 2 (PCR) Not Detected (NotDetected) 08/05/25 15:08 Parainfluenza 3 (PCR) Not Detected (NotDetected) 08/05/25 15:08 Parainfluenza 4 (PCR) Not Detected (NotDetected) 08/05/25 15:08 RSV (PCR) Not Detected (NotDetected) 08/05/25 15:08 Entero/Rhino (PCR) Not Detected (NotDetected) 08/05/25 15:08 Impressions Chest X-Ray 08/05/25 10:32 XR chest 1V portable CLINICAL HISTORY: weakness COMPARISON STUDY: 06/28/2025 FINDINGS: Right dialysis catheter tip is at the cavoatrial junction. Stable left atrial appendage occlusion device. There is prominent cardiomegaly with mild pulmonary vascular congestion. There is a large left pleural effusion and associated pulmonary consolidation. There is a trace right pleural effusion. No pneumothorax. Stable old left rib fractures. IMPRESSION: CHF with large left pleural effusion and associated left pulmonary consolidation. ACT 112: Negative or not required by law. Electronically signed by: Saman Oliva M.D. 08/05/2025 11:[address] 08/05/25 10:33 CT SCAN OF THE BRAIN WITHOUT IV CONTRAST CLINICAL HISTORY: Weakness. Confusion. COMPARISON STUDY: Head CT June 30, 2025. TECHNIQUE: Unenhanced axial CT scan of the brain was performed from the vertex to the skull base. A dose lowering technique was utilized adhering to the principles of ALARA. CT DOSE: 625.8 mGy.cm FINDINGS: No acute intracranial hemorrhage, midline shift or mass effect is present. Ventricular system is stable. Ventricular dilatation is likely due to central atrophy. Multifocal encephalomalacia is unchanged. The appearance of the brain is unchanged. There are no findings to suggest acute dural sinus thrombosis or acute territorial infarct. A left frontoparietal craniotomy is again noted. There are no calvarial fractures. There is minimal sinus mucosal thickening. IMPRESSION: No acute intracranial findings. No change in appearance of the brain. ACT 112: Negative or not required by law. Electronically signed by: Jossue Ernandez M.D. 08/05/2025 12:[address] 08/05/25 14:35 CT OF THE CHEST WITHOUT IV CONTRAST CLINICAL HISTORY: Pleural effusion vs pneumonia. COMPARISON STUDY: Chest radiograph performed earlier today. Chest radiograph June 28, 2025. CT DOSE: 297.46 mGy.cm TECHNIQUE: Axial images of the chest were obtained without IV contrast. Images were reviewed in the axial, sagittal, and coronal planes. IV contrast was not administered for this examination. Automated exposure control was utilized for the study. A dose lowering technique was utilized adhering to the principles of ALARA. FINDINGS: A dual lumen right internal jugular dialysis catheter is in place. The heart is moderately enlarged. Left atrial appendage occluder device is noted. There is a trace pericardial effusion. There is decreased attenuation of the cardiac blood pool. Anasarca is noted. Large left and small right pleural effusions are present. Extensive left lower lobe airspace opacity with volume loss favors segmental atelectasis. There is also segmental atelectasis within the left upper lobe. Mild ground glass opacities within the lungs are noted with mild interlobular septal thickening consistent with pulmonary edema. There is a small 2.6 cm subpleural airspace opacity within the right lower lobe on image 161. There is no pneumothorax. No thoracic lymphadenopathy is present. Several old right-sided rib fractures are present. There are numerous old left-sided rib fractures as well. There are also several additional suspected subacute left- sided rib fractures. There is an old sternal fracture. Mild thoracic spine compression deformities are probably chronic. Asymmetric left breast edema is present. IMPRESSION: 1. Large left and small right pleural effusions. Compressive subsegmental left lower lobe and lingular atelectasis. 2. Cardiomegaly with pulmonary edema. Anasarca. Nonspecific asymmetric left breast edema. 3. Small 2.6 cm subpleural right lower lobe alveolar opacity. This could represent alveolar pulmonary edema or a small focus of pneumonia. 4. Decreased attenuation of the cardiac blood pool which could indicate anemia. 5. Multiple subacute left-sided rib fractures. Numerous old bilateral rib fractures. No pneumothorax. ACT 112: Negative or not required by law. Electronically signed by: Jossue Ernandez M.D. 08/05/2025 4:16 PM Abdomen/Pelvis CT 08/05/25 18:43 Exam(s): CT ABDOMEN + PELVIS Without Contrast EXAM: CT Abdomen and Pelvis Without Intravenous Contrast CLINICAL HISTORY: bloating, encephalopathy. TECHNIQUE: Axial computed tomography images of the abdomen and pelvis without intravenous contrast. CTDI is 12.69 mGy and DLP is 588.65 mGy-cm. Automated exposure control was utilized for the study. A dose lowering technique was utilized adhering to the principles of ALARA. COMPARISON: No relevant prior studies available. FINDINGS: Artifacts: Scatter artifact likely related to patient's arm position. Limitations: There is diffuse respiratory artifact, which degrades image quality throughout the examination. Lung bases: The left lower lobe is completely decompressed. Subsegmental patchy opacity involving the lateral aspect of the right lower lobe. Pleural space: Mild right and [id number] left pleural effusions noted. Heart: Cardiomegaly. ABDOMEN: Liver: Unremarkable. Gallbladder and bile ducts: The gallbladder is mildly distended. No calcified gallstones. No obvious biliary dilatation. Pancreas: Evaluation of the pancreas is limited with respiratory artifact and lack of IV contrast. However, there abnormal at least 2 distinct cystic lesions noted in the pancreatic head measuring up to 2.3 cm in diameter and up to 2.5 cm in length. No ductal dilation involving the pancreatic tail. Spleen: Unremarkable. No splenomegaly. Adrenals: Unremarkable. No mass. Kidneys and ureters: Unremarkable. No obstructing stones. No hydronephrosis. Stomach and bowel: The stomach is decompressed with gastric wall thickening noted throughout. No evidence for bowel obstruction. Evaluation of the bowel mucosa is slightly limited without contrast; however, no definite focal asymmetry suggested. [id number] stool burden. PELVIS: Appendix: No findings to suggest acute appendicitis. Bladder: Unremarkable. No stones. Reproductive: Unremarkable as visualized. ABDOMEN and PELVIS: Intraperitoneal space: Trace fluid in the dependent pelvis. No loculation. No free air. Bones/joints: A left hip arthroplasties noted. No acute osseous abnormality. No dislocation. Soft tissues: Diffuse soft tissue edema suggesting anasarca. Vasculature: Atherosclerotic disease. No abdominal aortic aneurysm. Lymph nodes: Unremarkable. No enlarged lymph nodes. IMPRESSION: 1. Diffuse soft tissue edema suggesting anasarca. 2. Mild right and kclajkfm-xs-wxxxt left pleural effusions noted. 3. Evaluation of the pancreas is limited with respiratory artifact and lack of IV contrast. However, there abnormal at least 2 distinct cystic lesions noted in the pancreatic head measuring up to 2.3 cm in diameter and up to 2.5 cm in length. No ductal dilation involving the pancreatic tail. Differential consideration includes pancreatic pseudocyst versus benign and malignant cystic lesions of the pancreas. Recommend dedicated high-resolution imaging of the pancreas, ideally when the patient is able to breath hold for the examination. 4. Trace fluid in the dependent pelvis. No loculation. 5. No evidence for bowel obstruction. Evaluation of the bowel mucosa is slightly limited without contrast; however, no definite focal asymmetry suggested. [id number] stool burden. No pneumoperitoneum. Electronically signed by: Hayes Streeter MD 08/05/25 21:31 PM 08/05/25 ECHO Interpretation Summary Left ventricular systolic function is severely reduced. The right ventricle is mild to moderately dilated. The right ventricular systolic function is severely reduced. The right atrium is mild to moderately dilated. There is mild mitral regurgitation. There is mild to moderate tricuspid regurgitation. Right ventricular systolic pressure is elevated at 40-50mmHg. Small pericardial effusion. There are no echocardiographic indications of cardiac tamponade. Left Ventricular Ejection Fraction = 20-25%. Mild pulmonic valvular regurgitation. Mild aortic regurgitation. Medications Administered Home Medications Medication Instructions Recorded Confirmed Last Taken Aspirin Low-Strength 81 mg PO DAILY 08/05/25 08/05/25 Unknown atorvastatin 40 mg tablet 40 mg PO DAILY 08/05/25 08/05/25 Unknown cholecalciferol (vitamin D3) 25 mcg PO DAILY 08/05/25 08/05/25 Unknown citalopram 10 mg tablet 10 mg PO DAILY 08/05/25 08/05/25 Unknown ezetimibe 10 mg tablet 10 mg PO DAILY 08/05/25 08/05/25 Unknown folic acid 1 mg tablet 1 mg PO DAILY 08/05/25 08/05/25 Unknown losartan 50 mg tablet 50 mg PO DAILY 08/05/25 08/05/25 Unknown metoprolol succinate 100 mg 100 mg PO DAILY 08/05/25 08/05/25 Unknown tablet,extended release 24 hr omeprazole 20 mg capsule,delayed 20 mg PO DAILY 08/05/25 08/05/25 Unknown release rivastigmine 4.6 mg/24 hour 4.6 mg transdermal DAILY 08/05/25 08/05/25 Unknown transdermal patch sodium bicarbonate 650 mg tablet 1,300 mg PO BID 08/05/25 08/05/25 Unknown spironolactone 25 mg tablet 12.5 mg PO DAILY 08/05/25 08/05/25 Unknown Active Medications Generic Name Dose Route Start Last Admin Trade Name Octavio PRN Reason Stop Dose Admin Aspirin 81 mg 08/06/25 09:00 08/06/25 08:47 Aspirin 81 Mg Ectab PO 09/05/25 08:59 81 mg DAILY REMEDIOS Administration Atorvastatin Calcium 40 mg 08/06/25 09:00 08/06/25 08:48 Atorvastatin 40 Mg Tab PO 09/05/25 08:59 40 mg DAILY REMEDIOS Administration Citalopram Hydrobromide 10 mg 08/06/25 09:00 08/06/25 08:52 Citalopram 20 Mg Tab PO 09/05/25 08:59 10 mg DAILY REMEDIOS Administration Ezetimibe 10 mg 08/06/25 09:00 08/06/25 08:48 Ezetimibe 10 Mg Tab PO 09/05/25 08:59 10 mg DAILY REMEDIOS Administration Folic Acid 1 mg 08/06/25 09:00 08/06/25 08:48 Folic Acid 1 Mg Tab PO 09/05/25 08:59 1 mg DAILY REMEDIOS Administration Insulin Aspart 0 each 08/05/25 21:00 08/06/25 13:00 Insulin, Rapid-Acting Pump N/A 09/04/25 20:59 Not Given ACHS [facility] Protocol Pantoprazole Sodium 40 mg 08/06/25 09:00 08/06/25 08:47 Pantoprazole 40 Mg Tab PO 09/05/25 08:59 40 mg DAILY REMEDIOS Administration Senna/Docusate Sodium 1 tab 08/06/25 07:35 08/06/25 08:52 Docusate Sodium/Senna 50/8.6mg Tab PO 09/05/25 07:34 1 tab QAM REMEDIOS Administration Spironolactone 12.5 mg 08/06/25 09:00 08/06/25 09:30 Spironolactone 12.5 Mg Tab PO 09/05/25 08:59 12.5 mg DAILY REMEDIOS Administration Vitamin D 25 mcg 08/06/25 09:00 08/06/25 08:48 Cholecalciferol 25 Mcg (1000 Units) Tab PO 09/05/25 08:59 25 mcg DAILY REMEDIOS Administration PG Care Time/CCT Total # of Minutes Spent Total Time Spent with Patient: Total time spent is greater than 50% in coordination of care (as documented) at patient's floor/unit and/or counseling patient: Coding Level of Care Code 01384 SUB INP/OBS CARE 3/50MIN Diagnoses NSTEMI (non-ST elevation myocardial infarction) I21.4 ESRD (end stage renal disease) N18.6 Pleural effusion J90 HFrEF (heart failure with reduced ejection fraction) I50.20
--- NOTE | 2025-08-06 14:29 | Pulmonary Consultation ---
Date of Consultation August 06, 2025 Assessment & Plan (1) Chronic bilateral pleural effusions: (2) Pulmonary hypertension: (3) Acute on chronic heart failure with reduced ejection fraction (HFrEF, <= 40%) and combined systolic and diastolic dysfunction: Plan Flora Garcia is an 84-year-old female with past medical history of ESRD recently started on HD, Type I DM, anemia, paroxysmal atrial fibrillation with watchman, HTN, HLD, diastolic heart failure, meningioma s/p resection, cerebral amyloid angiopathy w/ IPH; who presented to [facility] on 08/05/2025 for weakness, confusion, and drowsiness for 2-3 days. Chest x-ray showed bluting of the left costophrenic angle likely related to pleural effusion. CT chest also confirmed the presence of a large left pleural effusion and smaller right effusion with compressive atelectasis. BNP was elevated at 2967. Pulm consulted for pleural effusions. 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 Bilateral pleural effusion; Large left pleural effusion likely related to diastolic heart failure, ESRD and volume overload. -BNP 2967 -Missed HD 08/05/25 -IR consulted for left thoracentesis -Pleural studies, cultures, and path ordered. -Cont management of heart failure. -Plan for HD today with volume removal if possible. Thank you for allowing us to participate in this patient's care. Please feel free to reach out with questions or concerns. 58 minutes is the time spent reviewing the chart, obtaining history, performing the physical exam, coordinating with care teams, and updating the patient and family. Supervising Physician Co-Signing Physician Notes Follow-up pleural fluid studies. Suspect likely transudate. Patient to undergo hemodialysis for additional volume removal. Will give a one-time dose of albumin to prevent hypotension given large-volume thoracentesis and hemodialysis today. History of Present Illness Attending Physician: David Waller DO History of Present Illness Flora Garcia is an 84-year-old female with past medical history of ESRD recently started on HD, Type I DM, anemia, paroxysmal atrial fibrillation with watchman, HTN, HLD, diastolic heart failure, meningioma s/p resection, cerebral amyloid angiopathy w/ IPH; who presented to [facility] on 08/05/2025 for weakness, confusion, and drowsiness for 2-3 days. Patient noted to be afebrile with no leukocytosis. Chest x-ray showed bluting of the left costophrenic angle likley related to pleural effusion. CT chest also confirmed the presence of a large left pleural effusion and smaller right effusion with compressive atelectasis. BNP was elevated at 2967. Patient admitted to the Hospitalist service and pulmonary was consulted for evaluation and management of the large left pleural effusion. Patient is a never smoker. Last TTE from 08/05/2025 showed severe right ventricular dysfunction with RVSP 40-50, EF 20-25%, and mild mitral regurgitation, moderate tricuspid regurgitation. Allergies Allergy/AdvReac Type Severity Reaction Status Date / Time No Known Allergies Allergy Verified 07/16/25 11:05 Home Medications Medication Instructions Recorded Confirmed Type Aspirin Low-Strength 81 mg PO DAILY 08/05/25 08/05/25 History atorvastatin 40 mg tablet 40 mg PO DAILY 08/05/25 08/05/25 History cholecalciferol (vitamin D3) 25 mcg PO DAILY 08/05/25 08/05/25 History citalopram 10 mg tablet 10 mg PO DAILY 08/05/25 08/05/25 History ezetimibe 10 mg tablet 10 mg PO DAILY 08/05/25 08/05/25 History folic acid 1 mg tablet 1 mg PO DAILY 08/05/25 08/05/25 History losartan 50 mg tablet 50 mg PO DAILY 08/05/25 08/05/25 History metoprolol succinate 100 mg 100 mg PO DAILY 08/05/25 08/05/25 History tablet,extended release 24 hr omeprazole 20 mg capsule,delayed 20 mg PO DAILY 08/05/25 08/05/25 History release rivastigmine 4.6 mg/24 hour 4.6 mg transdermal DAILY 08/05/25 08/05/25 History transdermal patch sodium bicarbonate 650 mg tablet 1,300 mg PO BID 08/05/25 08/05/25 History spironolactone 25 mg tablet 12.5 mg PO DAILY 08/05/25 08/05/25 History Patient History Medical History Acute kidney injury superimposed on CKD Cognitive impairment Acute metabolic encephalopathy Social History Smoking Status: Never smoker Second Hand Exposure: No; Do You Dip or Chew Tobacco: No; Hx Alcohol Use: No Hx Substance Use: No Preferred Language: [place] Communication Ability: Impaired Diamond Expert Required: No Beliefs That Will Affect Care: None Current Living Situation: Spouse Feels Safe at Home: Yes Assistive Devices: Walker and Wheelchair Review of Systems 2 Review of Systems: All systems reviewed & are unremarkable except as noted in HPI & below Physical Exam 2 Physical Exam: VITALS: Reviewed. WEIGHT/BMI reviewed. GEN: Ill appearing, well-developed, NAD. PSYCH: Flat affect, AOx3. HEENT -Head: NC/AT; -Eyes: PERRL, EOMI. No discharge or redn ess; -Ears: External ears are normal. . -Nose: Normal nares. NECK: Supple, with no masses. CV: Irregular rhtyhm with rat 80's, no m/r/g. LUNGS: Clear in right upper lobe with diminished right base. Diminished left upper and lower lobe. Chest rise symmetrical, Breathing nonlabored. ABD: N/A : N/A SKIN: Warm, well perfused. No skin rashes or abnormal lesions. MSK: No deformities, Normal gait. EXT: No clubbing, cyanosis, or edema. NEURO: Normal muscle strength and tone. No focal deficits. Results & Data Results & Data Vital Signs (Past 12 Hours) Vital Signs Temp Pulse Pulse Resp BP Pulse Ox O2 Del Method 08/06/25 10:51 37.1 C 93 H 24 104/66 94 Nasal Cannula 08/06/25 08:29 36.7 C 90 20 124/71 93 Nasal Cannula 08/06/25 08:00 91 H 08/06/25 08:00 Nasal Cannula 08/06/25 03:07 36.4 C L 87 16 133/79 95 Nasal Cannula O2 Flow Rate 08/06/25 10:51 3 08/06/25 08:29 3 08/06/25 08:00 08/06/25 08:00 08/06/25 03:07 2 Laboratory Results 08/06/25 05:40 08/06/25 05:40 Abnormal Lab Results 08/05/25 08/05/25 08/05/25 15:08 16:53 20:31 WBC RBC Hgb Hct MCV MCH MCHC RDW Std Deviation RDW Coeff of Sean Plt Count MPV Immature Gran % (Auto) Neut % (Auto) Lymph % (Auto) [place] % (Auto) Eos % (Auto) Baso % (Auto) Neut # (Auto) Lymph # (Auto) [place] # (Auto) Eos # (Auto) Baso # (Auto) Immature Gran # (Auto) Sodium Potassium Chloride Carbon Dioxide Anion Gap BUN Creatinine Est Cr Clr Drug Dosing eGFR BUN/Creatinine Ratio Glucose POC Glucose 113 H Calcium Total Bilirubin AST ALT Alkaline Phosphatase Troponin I High Sens 3580.5 H* Total Protein Albumin Globulin Albumin/Globulin Ratio Nasal Screen MRSA (PCR) Negative Adenovirus (PCR) Not Detected B. pertussis DNA (PCR) Not Detected B.parapertussis DNA PCR Not Detected C. pneumoniae DNA (PCR) Not Detected Coronavirus OC43 (PCR) Not Detected Coronavirus HKU1 (PCR) Not Detected Coronavirus 229E (PCR) Not Detected SARS-CoV-2 (PCR) Not Detected Coronavirus NL63 (PCR) Not Detected Hep Bs Antigen Negative Hep Bs Antibody Non-Immune Hep Bs Antibody, Quant < 3.00 Human Metapneumovir PCR Not Detected Influenza Type A (PCR) Not Detected Influenza Type B (PCR) Not Detected M. pneumoniae (PCR) Not Detected Parainfluenza 1 (PCR) Not Detected Parainfluenza 2 (PCR) Not Detected Parainfluenza 3 (PCR) Not Detected Parainfluenza 4 (PCR) Not Detected RSV (PCR) Not Detected Entero/Rhino (PCR) Not Detected 08/06/25 08/06/25 08/06/25 03:04 05:40 07:36 WBC 7.77 RBC 2.77 L Hgb 9.0 L Hct 27.2 L MCV 98.2 MCH 32.5 MCHC 33.1 RDW Std Deviation 65.1 H RDW Coeff of Sean 17.8 H Plt Count 193 MPV 11.5 Immature Gran % (Auto) 1.0 Neut % (Auto) 73.1 Lymph % (Auto) 15.8 [place] % (Auto) 9.0 Eos % (Auto) 0.5 Baso % (Auto) 0.6 Neut # (Auto) 5.67 Lymph # (Auto) 1.23 [place] # (Auto) 0.70 H Eos # (Auto) 0.04 Baso # (Auto) 0.05 Immature Gran # (Auto) 0.08 Sodium 140 Potassium 4.2 Chloride 101 Carbon Dioxide 27 Anion Gap 12 H BUN 53 H Creatinine 3.22 H D Est Cr Clr Drug Dosing 11.2 eGFR 13.74 BUN/Creatinine Ratio 16.5 Glucose 101 H POC Glucose 111 H 98 Calcium 8.7 Total Bilirubin 0.5 AST 47 H ALT 75 H Alkaline Phosphatase 134 H Troponin I High Sens Total Protein 5.3 L Albumin 2.7 L Globulin 2.6 Albumin/Globulin Ratio 1.0 Nasal Screen MRSA (PCR) Adenovirus (PCR) B. pertussis DNA (PCR) B.parapertussis DNA PCR C. pneumoniae DNA (PCR) Coronavirus OC43 (PCR) Coronavirus HKU1 (PCR) Coronavirus 229E (PCR) SARS-CoV-2 (PCR) Coronavirus NL63 (PCR) Hep Bs Antigen Hep Bs Antibody Hep Bs Antibody, Quant Human Metapneumovir PCR Influenza Type A (PCR) Influenza Type B (PCR) M. pneumoniae (PCR) Parainfluenza 1 (PCR) Parainfluenza 2 (PCR) Parainfluenza 3 (PCR) Parainfluenza 4 (PCR) RSV (PCR) Entero/Rhino (PCR) 08/06/25 11:14 WBC RBC Hgb Hct MCV MCH MCHC RDW Std Deviation RDW Coeff of Sean Plt Count MPV Immature Gran % (Auto) Neut % (Auto) Lymph % (Auto) [place] % (Auto) Eos % (Auto) Baso % (Auto) Neut # (Auto) Lymph # (Auto) [place] # (Auto) Eos # (Auto) Baso # (Auto) Immature Gran # (Auto) Sodium Potassium Chloride Carbon Dioxide Anion Gap BUN Creatinine Est Cr Clr Drug Dosing eGFR BUN/Creatinine Ratio Glucose POC Glucose 178 H Calcium Total Bilirubin AST ALT Alkaline Phosphatase Troponin I High Sens Total Protein Albumin Globulin Albumin/Globulin Ratio Nasal Screen MRSA (PCR) Adenovirus (PCR) B. pertussis DNA (PCR) B.parapertussis DNA PCR C. pneumoniae DNA (PCR) Coronavirus OC43 (PCR) Coronavirus HKU1 (PCR) Coronavirus 229E (PCR) SARS-CoV-2 (PCR) Coronavirus NL63 (PCR) Hep Bs Antigen Hep Bs Antibody Hep Bs Antibody, Quant Human Metapneumovir PCR Influenza Type A (PCR) Influenza Type B (PCR) M. pneumoniae (PCR) Parainfluenza 1 (PCR) Parainfluenza 2 (PCR) Parainfluenza 3 (PCR) Parainfluenza 4 (PCR) RSV (PCR) Entero/Rhino (PCR) Diagnostic Findings Chest CT 08/05/25 14:35 CT OF THE CHEST WITHOUT IV CONTRAST CLINICAL HISTORY: Pleural effusion vs pneumonia. COMPARISON STUDY: Chest radiograph performed earlier today. Chest radiograph June 28, 2025. CT DOSE: 297.46 mGy.cm TECHNIQUE: Axial images of the chest were obtained without IV contrast. Images were reviewed in the axial, sagittal, and coronal planes. IV contrast was not administered for this examination. Automated exposure control was utilized for the study. A dose lowering technique was utilized adhering to the principles of ALARA. FINDINGS: A dual lumen right internal jugular dialysis catheter is in place. The heart is moderately enlarged. Left atrial appendage occluder device is noted. There is a trace pericardial effusion. There is decreased attenuation of the cardiac blood pool. Anasarca is noted. Large left and small right pleural effusions are present. Extensive left lower lobe airspace opacity with volume loss favors segmental atelectasis. There is also segmental atelectasis within the left upper lobe. Mild ground glass opacities within the lungs are noted with mild interlobular septal thickening consistent with pulmonary edema. There is a small 2.6 cm subpleural airspace opacity within the right lower lobe on image 161. There is no pneumothorax. No thoracic lymphadenopathy is present. Several old right-sided rib fractures are present. There are numerous old left-sided rib fractures as well. There are also several additional suspected subacute left- sided rib fractures. There is an old sternal fracture. Mild thoracic spine compression deformities are probably chronic. Asymmetric left breast edema is present. IMPRESSION: 1. Large left and small right pleural effusions. Compressive subsegmental left lower lobe and lingular atelectasis. 2. Cardiomegaly with pulmonary edema. Anasarca. Nonspecific asymmetric left breast edema. 3. Small 2.6 cm subpleural right lower lobe alveolar opacity. This could represent alveolar pulmonary edema or a small focus of pneumonia. 4. Decreased attenuation of the cardiac blood pool which could indicate anemia. 5. Multiple subacute left-sided rib fractures. Numerous old bilateral rib fractures. No pneumothorax. ACT 112: Negative or not required by law. Electronically signed by: Jossue Ernandez M.D. 08/05/2025 4:16 PM Abdomen/Pelvis CT 08/05/25 18:43 Exam(s): CT ABDOMEN + PELVIS Without Contrast EXAM: CT Abdomen and Pelvis Without Intravenous Contrast CLINICAL HISTORY: bloating, encephalopathy. TECHNIQUE: Axial computed tomography images of the abdomen and pelvis without intravenous contrast. CTDI is 12.69 mGy and DLP is 588.65 mGy-cm. Automated exposure control was utilized for the study. A dose lowering technique was utilized adhering to the principles of ALARA. COMPARISON: No relevant prior studies available. FINDINGS: Artifacts: Scatter artifact likely related to patient's arm position. Limitations: There is diffuse respiratory artifact, which degrades image quality throughout the examination. Lung bases: The left lower lobe is completely decompressed. Subsegmental patchy opacity involving the lateral aspect of the right lower lobe. Pleural space: Mild right and [id number] left pleural effusions noted. Heart: Cardiomegaly. ABDOMEN: Liver: Unremarkable. Gallbladder and bile ducts: The gallbladder is mildly distended. No calcified gallstones. No obvious biliary dilatation. Pancreas: Evaluation of the pancreas is limited with respiratory artifact and lack of IV contrast. However, there abnormal at least 2 distinct cystic lesions noted in the pancreatic head measuring up to 2.3 cm in diameter and up to 2.5 cm in length. No ductal dilation involving the pancreatic tail. Spleen: Unremarkable. No splenomegaly. Adrenals: Unremarkable. No mass. Kidneys and ureters: Unremarkable. No obstructing stones. No hydronephrosis. Stomach and bowel: The stomach is decompressed with gastric wall thickening noted throughout. No evidence for bowel obstruction. Evaluation of the bowel mucosa is slightly limited without contrast; however, no definite focal asymmetry suggested. [id number] stool burden. PELVIS: Appendix: No findings to suggest acute appendicitis. Bladder: Unremarkable. No stones. Reproductive: Unremarkable as visualized. ABDOMEN and PELVIS: Intraperitoneal space: Trace fluid in the dependent pelvis. No loculation. No free air. Bones/joints: A left hip arthroplasties noted. No acute osseous abnormality. No dislocation. Soft tissues: Diffuse soft tissue edema suggesting anasarca. Vasculature: Atherosclerotic disease. No abdominal aortic aneurysm. Lymph nodes: Unremarkable. No enlarged lymph nodes. IMPRESSION: 1. Diffuse soft tissue edema suggesting anasarca. 2. Mild right and amvgnevq-dz-bgcrp left pleural effusions noted. 3. Evaluation of the pancreas is limited with respiratory artifact and lack of IV contrast. However, there abnormal at least 2 distinct cystic lesions noted in the pancreatic head measuring up to 2.3 cm in diameter and up to 2.5 cm in length. No ductal dilation involving the pancreatic tail. Differential consideration includes pancreatic pseudocyst versus benign and malignant cystic lesions of the pancreas. Recommend dedicated high-resolution imaging of the pancreas, ideally when the patient is able to breath hold for the examination. 4. Trace fluid in the dependent pelvis. No loculation. 5. No evidence for bowel obstruction. Evaluation of the bowel mucosa is slightly limited without contrast; however, no definite focal asymmetry suggested. Qkgj-[id number] stool burden. No pneumoperitoneum. Electronically signed by: Hayes Streeter MD 08/05/25 21:31 PM PG Care Time/CCT Total # of Minutes Spent Total Time Spent with Patient: Total time spent is greater than 50% in coordination of care (as documented) at patient's floor/unit and/or counseling patient: Coding Level of Care Code 40440 INT INP/OBS CARE 2/55MIN Diagnoses Chronic bilateral pleural effusions J90 Pulmonary hypertension I27.20 Acute on chronic heart failure with reduced ejection fraction (HFrEF, <= 40%) and combined systolic and diastolic dysfunction I50.43
--- NOTE | 2025-08-06 14:36 | Ultrasound Report ---
ULTRASOUND-GUIDED LEFT THORACENTESIS CLINICAL HISTORY: Left pleural effusion PROCEDURE: Procedure and risks were explained. Informed consent was obtained. A final timeout was com pleted. The left posterior thorax was prepped and draped in sterile fashion. 1% lidocaine was utilize d for skin anesthesia. Utilizing ultrasound guidance, a 5 [place] safety centesis catheter was advanced into the left pleural effusion. Ultrasound images were obtained. A total of 1000 mL of yellow pleural fluid was removed an d sent to the lab. The catheter was removed and Band-Aid applied. The patient tolerated the procedure well. A chest x-ray will be obtained post procedure. Vital signs will be monitored postprocedure. IMPRESSION: Ultrasound-guided left thoracentesis as above. Performed, dictated, and signed by Hayes Silva PA-C; to be co-signed by Dr. Saman Oliva. Electronically signed by: Saman Oliva M.D. 08/06/2025 3:12 PM
--- NOTE | 2025-08-06 14:43 | XRay Report ---
XR chest 1V not portable CLINICAL HISTORY: s/p left thora COMPARISON STUDY: 08/05/2025 FINDINGS: Stable right dialysis catheter. Stable left atrial appendage occlusion device. Stable cardi omegaly with mild pulmonary vascular congestion. There is a trace left pleural effusion with mild adj acent left lung base atelectasis, significantly improved. No pneumothorax. IMPRESSION: No pneumothorax. ACT 112: Negative or not required by law. Electronically signed by: Saman Oliva M.D. 08/06/2025 2:41 PM
[2025-08-06 15:33] LABS: Albumin Level 2.7 gm/dl (3.4-5.0); Bilirubin,Total 0.5 mg/dl (0.2-1.0); Total Protein 5.7 gm/dl (6.0-8.3)
[2025-08-06 16:09] LABS: Appearance Pleural Fluid Clear; Color Pleural Fluid Yellow; RBC Pleural Fluid Auto < 2000 /uL; Source Pleural Fluid Left Lung; WBC Pleural Fluid Auto 288 /uL
[2025-08-06] MEDS: ALBUMIN 25% 25 GM/100 ML VIAL IV ONE (16:22)
[2025-08-07 06:28] LABS: Anion Gap 8.0 (3-11); Blood Urea Nitrogen 26.0 mg/dl (6-23); Calcium 8.3 mg/dl (8.6-10.3); Carbon Dioxide 29.0 mmol/L (21-32); Chloride 103.0 mmol/L (98-107); Creatinine Clr Calc Pharmacy 17.3 ml/min; Glucose 143.0 mg/dl (70-99(Fasting)); Magnesium 2.0 mg/dl (1.7-2.4); Potassium 3.7 mmol/L (3.5-5.1); Sodium 140.0 mmol/L (136-145)
[2025-08-07 07:32] LABS: Lymphocytes, Fluid 24 %; Mono,Macrophage,Mesothelial 58 %; Neutrophils, Fluid 18 %
[2025-08-07 07:57] LABS: Hemoglobin A1C 5.9 % (4.5-5.6)
[2025-08-07] MEDS: METOPROLOL SUCC 50MG EXT REL TAB PO SCH (08:25)
[2025-08-07] MEDS ORDERED: SODIUM CHLORIDE 0.9% 1,000 ML IV PRN (09:37)
--- NOTE | 2025-08-07 10:21 | Hospitalist Progress Note ---
Date of Service August 07, 2025 Assessment & Plan (1) Acute metabolic encephalopathy: Plan: Suspect due to Exelon patch (2) Acute on chronic heart failure with reduced ejection fraction (HFrEF, <= 40%) and combined systolic and diastolic dysfunction: (3) NSTEMI (non-ST elevation myocardial infarction): (4) Chronic bilateral pleural effusions: (5) End-stage renal disease on hemodialysis: (6) Anemia, chronic renal failure: (7) Chronic atrial fibrillation: (8) Cerebral amyloid angiopathy: (9) Pulmonary hypertension: (10) Diabetes mellitus type 2, noninsulin dependent: (11) Cognitive impairment: Plan Per previous providers w/addendum: (1) Lethargy: (2) Pleural effusion: (3) NSTEMI (non-ST elevation myocardial infarction): (4) ESRD (end stage renal disease): Plan: Patient is 84 year old female with PMH End-stage renal disease, recently started on hemodialysis,DM I, anemia of chronic disease, PAF s/p left atrial appendage occluder device placement in March 2024, HTN, HLD, chronic diastolic HF, history of meningioma s/p resection in 2014, multinodular goiter, cerebral amyloid angiopathy with history of cerebral bleed, TIA, cognitive impairment presenting with weakness and drowsiness x 2 to 3 days. WEAKNESS, ACUTE HYPOXIA LARGE LEFT PLEURAL EFFUSION VS. PNEUMONIA ESRD on HD Cardiomyopathy EF 25% Currently on 2 L of O2 via nasal cannula Chest x-ray showing large pleural effusion versus consolidation CT chest obtained -> Pulmonary consulted - and pt is s/p Left thoracentesis (08/06), 1L of fluid removed check for Respiratory panel, MRSA nasal swab blood cultures Nephrology service consulted--> s/p HD yesterday (08/06) and plan for HD today. TROPONIN ELEVATION POSSIBLE NSTEMI diagnosed with Cardiomyopathy EF 25% last July at [facility] no report of chest pain as per family Anticoagulation contraindicated as per family due to history of cerebral bleed, cerebral amyloid angiopathy Echo obtained continue Metoprolol, Aspirin, Atorvastatin Cardiology consulted - cont. medical management ENCEPHALOPATHY, LETHARGY likely secondary to above CT head negative VBG no hypercapnea from Rivastigmine? It appears that the Exelon patch was restarted about 3 days ago at the recommendation of her neurologist in [place]. Rivastigmine patch was discontinued yesterday (08/06) Neurology consulted - pending Other chronic medical problems: DM1- current Hgb A1c 5.9%, pharmacy glycemic consult Hypertension Paroxysmal A-fib status post left atrial appendage placement- on Metoprolol and Aspirin, not an AC , pt has hx of cerebral amyloid with microhemorrhages Cerebral amyloid angiopathy with history of cerebral bleed TIA History of meningioma s/p resection 2014 DVT prophylaxis SCDs for now CODE STATUS Full code as per [place] at the bedside Disposition - PCU Admission and Anticipated Discharge Date Admission Date: August 05, 2025 Subjective Pt seen in follow up , admitted for AMS In July she was transferred to [facility] [place] poss. status epilepticus Pt has hx of DM 1 on insulin pump On Rivastigmine patch - now off New on HD - had HD yesterday Currently lying in bed in NAD She is awake, and able to answer some simple questions. Her is present at the bedside and answers most questions. He says he thinks she is doing better. Pt currently denies any chest pain, shortness of breath, abd. pain. S/p left thoracentesis yesterday and S/p HD yesterday Neuro consult pending Review of Systems Review of Systems: All systems reviewed & are unremarkable except as noted in Subjective Physical Exam Physical Exam: General- awake, not in distress, answers some simple questions appropriately, breathing with no effort or accessory muscle use Head- atraumatic Eyes- PERRL, EOMI, anicteric Neck- supple, no JVD Lungs- decreased breath sounds, no wheezing Heart- normal rate, irregular rhythm; no murmur Abdomen- normal bowel sounds, nondistended, soft, nontender Extremities- no pretibial edema, moves extremities while lying in bed Neuro- awake, generally weak, answers some simple questions appropriately, moves extremities while lying in bed Skin- warm & dry Results & Data Results & Data Vital Signs (Past 12 Hours) Vital Signs Temp Pulse Resp BP BP Pulse Ox O2 Del Method 08/07/25 07:12 36.9 C 70 16 139/88 100 Room Air 08/07/25 03:07 36.7 C 91 H 16 148/94 H 98 Nasal Cannula 08/06/25 23:02 36.9 C 98 H 16 98/63 L 99 Nasal Cannula O2 Flow Rate 08/07/25 07:12 08/07/25 03:07 2.0 08/06/25 23:02 2.0 Laboratory Results 08/07/25 08/07/25 08/07/25 Range/Units 07:16 05:36 03:07 Sodium 140 (136-145) mmol/L Potassium 3.7 (3.5-5.1) mmol/L Chloride 103 (98-107) mmol/L Carbon Dioxide 29 (21-32) mmol/L Anion Gap 8 (3-11) BUN 26 H D (6-23) mg/dl Creatinine 2.02 H D (0.6-1.2) mg/dl Est Cr Clr Drug Dosing 17.3 ml/min eGFR 24.04 BUN/Creatinine Ratio 12.9 (10-20) Glucose 143 H (70-99(Fasting)) mg/dl POC Glucose 121 H 165 H (70-99) mg/dl Estimat Average Glucose 123 mg/dl Hemoglobin A1c 5.9 H (4.5-5.6) % Calcium 8.3 L (8.6-10.3) mg/dl Phosphorus 3.0 D (2.5-4.9) mg/dl Magnesium 2.0 (1.7-2.4) mg/dl Total Bilirubin (0.2-1.0) mg/dl Lactate Dehydrogenase (86-244) U/L Total Protein (6.0-8.3) gm/dl Albumin (3.4-5.0) gm/dl Fluid Neutrophils % % Fluid Lymphocytes % % Fluid Meso/Macro/Laporte % % Fluid Comment Pleural Fluid Source Pleural Color Pleural Appearance Pleural pH (7.3-7.4) Pleural WBC (Auto) /uL Pleural RBC (Auto) /uL Pleural Total Protein gm/dl Pleural LDH U/L Pleural Glucose mg/dl Pleural Amylase U/L Pleural Cholesterol 08/06/25 08/06/25 08/06/25 Range/Units Unknown 20:40 16:27 Sodium (136-145) mmol/L Potassium (3.5-5.1) mmol/L Chloride (98-107) mmol/L Carbon Dioxide (21-32) mmol/L Anion Gap (3-11) BUN (6-23) mg/dl Creatinine (0.6-1.2) mg/dl Est Cr Clr Drug Dosing ml/min eGFR BUN/Creatinine Ratio (10-20) Glucose (70-99(Fasting)) mg/dl POC Glucose 124 H 144 H (70-99) mg/dl Estimat Average Glucose mg/dl Hemoglobin A1c (4.5-5.6) % Calcium (8.6-10.3) mg/dl Phosphorus (2.5-4.9) mg/dl Magnesium (1.7-2.4) mg/dl Total Bilirubin (0.2-1.0) mg/dl Lactate Dehydrogenase (86-244) U/L Total Protein (6.0-8.3) gm/dl Albumin (3.4-5.0) gm/dl Fluid Neutrophils % 18 % Fluid Lymphocytes % 24 % Fluid Meso/Macro/Laporte % 58 % Fluid Comment Pleural Fluid Source Left Lung Pleural Color Yellow Pleural Appearance Clear Pleural pH 7.56 H (7.3-7.4) Pleural WBC (Auto) 288 /uL Pleural RBC (Auto) < 2000 /uL Pleural Total Protein < 3.0 gm/dl Pleural LDH 100 U/L Pleural Glucose 160 mg/dl Pleural Amylase < 10 U/L Pleural Cholesterol Pending 08/06/25 08/06/25 Range/Units 14:55 11:14 Sodium (136-145) mmol/L Potassium (3.5-5.1) mmol/L Chloride (98-107) mmol/L Carbon Dioxide (21-32) mmol/L Anion Gap (3-11) BUN (6-23) mg/dl Creatinine (0.6-1.2) mg/dl Est Cr Clr Drug Dosing ml/min eGFR BUN/Creatinine Ratio (10-20) Glucose (70-99(Fasting)) mg/dl POC Glucose 178 H (70-99) mg/dl Estimat Average Glucose mg/dl Hemoglobin A1c (4.5-5.6) % Calcium (8.6-10.3) mg/dl Phosphorus (2.5-4.9) mg/dl Magnesium (1.7-2.4) mg/dl Total Bilirubin 0.5 (0.2-1.0) mg/dl Lactate Dehydrogenase 280 H (86-244) U/L Total Protein 5.7 L (6.0-8.3) gm/dl Albumin 2.7 L (3.4-5.0) gm/dl Fluid Neutrophils % % Fluid Lymphocytes % % Fluid Meso/Macro/Laporte % % Fluid Comment Pleural Fluid Source Pleural Color Pleural Appearance Pleural pH (7.3-7.4) Pleural WBC (Auto) /uL Pleural RBC (Auto) /uL Pleural Total Protein gm/dl Pleural LDH U/L Pleural Glucose mg/dl Pleural Amylase U/L Pleural Cholesterol Medications Administered Current Inpatient Medications Aspirin (Aspirin 81 Mg Ectab) 81 mg PO DAILY [facility] Stop: 09/05/25 08:59 Last Admin: 08/07/25 08:24 Dose: 81 mg Atorvastatin Calcium (Atorvastatin 40 Mg Tab) 40 mg PO DAILY [facility] Stop: 09/05/25 08:59 Last Admin: 08/07/25 08:24 Dose: 40 mg Citalopram Hydrobromide (Citalopram 20 Mg Tab) 10 mg PO DAILY [facility] Stop: 09/05/25 08:59 Last Admin: 08/07/25 08:24 Dose: 10 mg Dextrose (Dextrose 50% 50 Ml Syringe) 25 - 50 ml IV UD PRN; Protocol PRN Reason: Hypoglycemia Protocol Stop: 09/04/25 17:14 Ezetimibe (Ezetimibe 10 Mg Tab) 10 mg PO DAILY [facility] Stop: 09/05/25 08:59 Last Admin: 08/07/25 08:25 Dose: 10 mg Folic Acid (Folic Acid 1 Mg Tab) 1 mg PO DAILY [facility] Stop: 09/05/25 08:59 Last Admin: 08/07/25 08:25 Dose: 1 mg Glucagon (Glucagon For Inj 1 Mg Vial) 1 mg SQ UD PRN; Protocol PRN Reason: Hypoglycemia Protocol Stop: 09/04/25 17:14 Glucose (Glucose 40% Gel 15 Gm Tube) 15 - 30 gm PO UD PRN; Protocol PRN Reason: Hypoglycemia Protocol Stop: 09/04/25 17:14 Glucose (Glucose 10 Tab/Tube) 4 - 8 tab PO UD PRN; Protocol PRN Reason: Hypoglycemia Protocol Stop: 09/04/25 17:14 Insulin Aspart (Insulin, Rapid-Acting Pump) 0 each N/A ACHS [facility]; Protocol Stop: 09/04/25 20:59 Last Admin: 08/07/25 09:12 Dose: 1.7 each Insulin Aspart (Insulin Aspart 100 Units/Ml Vial) 0 units SC PRN PRN PRN Reason: Pump Refill Use ONLY Stop: 09/04/25 17:14 Losartan Potassium (Losartan Potassium 50 Mg Tab) 50 mg PO HS [facility] Stop: 09/05/25 20:59 Last Admin: 08/06/25 20:28 Dose: 50 mg Metoprolol Succinate (Metoprolol Succ 50mg Ext Rel Tab) 50 mg PO DAILY [facility] Stop: 09/06/25 08:59 Last Admin: 08/07/25 08:25 Dose: 50 mg Metoprolol Succinate (Metoprolol Succ 50mg Ext Rel Tab) 50 mg PO HS [facility] Stop: 09/05/25 20:59 Last Admin: 08/06/25 20:28 Dose: Not Given Miscellaneous (Carbohydrates For Hypoglycemia ) 15 - 30 gm PO UD PRN PRN Reason: Hypoglycemia Treatment Stop: 09/04/25 17:14 Pantoprazole Sodium (Pantoprazole 40 Mg Tab) 40 mg PO DAILY [facility] Stop: 09/05/25 08:59 Last Admin: 08/07/25 08:25 Dose: 40 mg Senna/Docusate Sodium (Docusate Sodium/Senna 50/8.6mg Tab) 1 tab PO QAM [facility] Stop: 09/05/25 07:34 Last Admin: 08/07/25 08:23 Dose: Not Given Spironolactone (Spironolactone 12.5 Mg Tab) 12.5 mg PO DAILY [facility] Stop: 09/05/25 08:59 Last Admin: 08/07/25 08:25 Dose: 12.5 mg Vitamin D (Cholecalciferol 25 Mcg (1000 Units) Tab) 25 mcg PO DAILY [facility] Stop: 09/05/25 08:59 Last Admin: 08/07/25 08:24 Dose: 25 mcg
--- NOTE | 2025-08-07 11:49 | Neurology Consultation ---
Date of Consultation August 07, 2025 Assessment & Plan (1) Cerebral amyloid angiopathy: Mrs. Garcia presents with cerebral amyloid angiopathy, reduced ejection fraction, and recent confusion after rivastigmine re-initiation, now off the patch and again improving. Please do not restart the rivastigmine. Cardiac cath presents an unacceptable risk of cerebral hemorrhage given her amyloid and the high doses of anticoagulation required. Would also add that DAPT if a stent were placed is also highly risky. Recommend medical management of her heart failure per cardiology. Family in agreement. They plan to return her to [place] after this hospital stay. Would not otherwise start any new medications for her [facility]. -- Would not pursue cardiac cath due to safety risks in her condition -- Medical management of heart failure -- Stop rivastigmine and do not restart, no other dementia medications recommended. -- Dispo to MI when stable, no further neurologic workup recommended. Telehealth Consultation Telehealth Information Telehealth Information: I performed this visit using a real-time telehealth connection between my location and the patients location ([facility]). After connec ting through interactive tele-video, patient was identified by name and date of and/or wristband check.Patient (or authorized healthcare contact center representative) was informed that this was a telemedicine visit and it was being conducted confidentially over secure lines. My office door was closed and no one else was present in the room with me.Patient (or authorized healthcare contact center representative) provided consent to proceed with the visit, expressed an understanding of privacy and security of the telemedicine visit, and gave permission to have a hospital contact center representative in the room in order to assist with the visit and to conduct portions of the visit, as needed. I informed the patient (or authorized healthcare contact center representative) that I reviewed their record and presented the opportunity for them to ask any questions regarding the visit today. The patient agreed to participate. History of Present Illness Reason for Consultation: Encephalopathy Requesting Physician: Dr. Carolina Attending Physician: Shawn Carolina MD History of Present Illness Flora Garcia is an 84 yo F presenting with worsened confusion after restarting her rivastigmine patch after leaving a recent admission at [facility] [place] [place]. Noted reduced ED to 25%, she was found to have a plueral effusion which was drained yesterday and has ESRD on HD. Per family she is improving today after the rivastigmine was again discontinued. Cardiology note reviewed with plan for possible cardiac cath. Discussed hospital course and treatment options with family at bedside and on the phone during the encounter. The patient was unable to contribute to the history secondary to her encephalopathy and baseline dementia. Allergies Allergy/AdvReac Type Severity Reaction Status Date / Time No Known Allergies Allergy Verified 07/16/25 11:05 Home Medications Medication Instructions Recorded Confirmed Type Aspirin Low-Strength 81 mg PO DAILY 08/05/25 08/05/25 History atorvastatin 40 mg tablet 40 mg PO DAILY 08/05/25 08/05/25 History cholecalciferol (vitamin D3) 25 mcg PO DAILY 08/05/25 08/05/25 History citalopram 10 mg tablet 10 mg PO DAILY 08/05/25 08/05/25 History ezetimibe 10 mg tablet 10 mg PO DAILY 08/05/25 08/05/25 History folic acid 1 mg tablet 1 mg PO DAILY 08/05/25 08/05/25 History losartan 50 mg tablet 50 mg PO DAILY 08/05/25 08/05/25 History metoprolol succinate 100 mg 100 mg PO DAILY 08/05/25 08/05/25 History tablet,extended release 24 hr omeprazole 20 mg capsule,delayed 20 mg PO DAILY 08/05/25 08/05/25 History release rivastigmine 4.6 mg/24 hour 4.6 mg transdermal DAILY 08/05/25 08/05/25 History transdermal patch sodium bicarbonate 650 mg tablet 1,300 mg PO BID 08/05/25 08/05/25 History spironolactone 25 mg tablet 12.5 mg PO DAILY 08/05/25 08/05/25 History Patient History Medical History Acute kidney injury superimposed on CKD Cognitive impairment Acute metabolic encephalopathy Social History Smoking Status: Never smoker Second Hand Exposure: No; Do You Dip or Chew Tobacco: No; Hx Alcohol Use: No Hx Substance Use: No Preferred Language: Vietnamese Communication Ability: Impaired Internal Medicine Veterinary Technician Required: No Beliefs That Will Affect Care: None Current Living Situation: Spouse Feels Safe at Home: Yes Assistive Devices: Walker and Wheelchair Review of Systems Unable to obtain Physical Exam Awake and alert, lying in bed, no verbal output. Face symmetric, antigravity strength in the upper extremities, movements were non-ataxic. Results & Data Vital Signs (Past 12 Hours) Vital Signs Temp Pulse Resp BP BP Pulse Ox O2 Del Method 08/07/25 11:11 Nasal Cannula 08/07/25 10:51 36.5 C 108 H 17 131/76 93 Nasal Cannula 08/07/25 07:12 36.9 C 70 16 139/88 100 Room Air 08/07/25 03:07 36.7 C 91 H 16 148/94 H 98 Nasal Cannula O2 Flow Rate 08/07/25 11:11 1 08/07/25 10:51 08/07/25 07:12 08/07/25 03:07 2.0 Laboratory Results Abnormal lab results 08/06/25 08/06/25 08/06/25 Range/Units 14:55 16:27 20:40 BUN (6-23) mg/dl Creatinine (0.6-1.2) mg/dl Glucose (70-99(Fasting)) mg/dl POC Glucose 144 H 124 H (70-99) mg/dl Hemoglobin A1c (4.5-5.6) % Calcium (8.6-10.3) mg/dl Lactate Dehydrogenase 280 H (86-244) U/L Total Protein 5.7 L (6.0-8.3) gm/dl Albumin 2.7 L (3.4-5.0) gm/dl Pleural pH (7.3-7.4) 08/06/25 08/07/25 08/07/25 Range/Units Unknown 03:07 05:36 BUN 26 H D (6-23) mg/dl Creatinine 2.02 H D (0.6-1.2) mg/dl Glucose 143 H (70-99(Fasting)) mg/dl POC Glucose 165 H (70-99) mg/dl Hemoglobin A1c 5.9 H (4.5-5.6) % Calcium 8.3 L (8.6-10.3) mg/dl Lactate Dehydrogenase (86-244) U/L Total Protein (6.0-8.3) gm/dl Albumin (3.4-5.0) gm/dl Pleural pH 7.56 H (7.3-7.4) 10/08/25 10/08/25 Range/Units 07:16 10:56 BUN (6-23) mg/dl Creatinine (0.6-1.2) mg/dl Glucose (70-99(Fasting)) mg/dl POC Glucose 121 H 164 H (70-99) mg/dl Hemoglobin A1c (4.5-5.6) % Calcium (8.6-10.3) mg/dl Lactate Dehydrogenase (86-244) U/L Total Protein (6.0-8.3) gm/dl Albumin (3.4-5.0) gm/dl Pleural pH (7.3-7.4)
[2025-08-07 12:59] LABS: Hematocrit (blood only) 26.9 % (37.0-47.0); Hemoglobin 8.7 g/dl (12.0-16.0); Immature Granulocytes # (auto) 0.11 K/uL (0.01-0.20); Immature Granulocytes % (auto) 1.1 %; Mean Corpuscular Hemoglobin 32.0 pg (25.0-34.0); Mean Corpuscular Volume 98.9 fL (80.0-100.0); Platelet Count 170 K/uL (130-400); RDW Standard Deviation 64.4 fL (36.4-46.3); Red Blood Count 2.72 M/uL (4.20-5.40); White Blood Count 9.73 K/ul (4.8-10.8)
[2025-08-07] MEDS: MIDODRINE HCL 2.5 MG TAB PO STA (13:08)
[2025-08-07] MEDS: HEPARIN SOD (PORCINE) 1000 UNIT/ML IV ONE (13:09)
--- NOTE | 2025-08-07 13:28 | Pulmonology Progress Note ---
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 Chest x-ray showed bluting of the left costophrenic angle likely related to pleural effusion. CT chest also confirmed the presence of a large left pleural effusion and smaller right effusion with compressive atelectasis. BNP was elevated at 2967. Pulm consulted for pleural effusions. 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 Bilateral pleural effusion; Large left pleural effusion likely related to diastolic heart failure, ESRD and volume overload. -BNP 2967 -HD on 08/06 w/ 1.4 liters off. Plan to repeat HD again today. -Thoracentesis of the left effusion on 08/06/25 with IR. Removed 1L of fluid. Post procedure CXR showed significantly improved aeration and reduction of effusion. -Pleural studies show a likely transudative effusion. Cultures and path pending. -Cont management of heart failure. -Plan for HD today with volume removal if possible. Thank you for allowing us to participate in this patient's care. Please feel free to reach out with questions or concerns. 35 minutes is the time spent reviewing the chart, obtaining history, performing the physical exam, coordinating with care teams, and updating the patient and family. Admission and Anticipated Discharge Date Admission Date: August 05, 2025 Subjective Patient states she feels good today. She complains of no shortness of breath. SpO2 94% on 1L NC. Patient had left thoracentesis yesterday with 1 liter removed. Studies consistent with transudative effusion. Cultures and path pending. HD treatment yesterday with 1.4L removed. Plan to repeat HD today. Review of Systems 2 Review of Systems: All systems reviewed & are unremarkable except as noted in HPI & below Physical Exam 2 Physical Exam: VITALS: Reviewed. WEIGHT/BMI reviewed. GEN: Well-developed, NAD. PSYCH: Good Judgment. AOx3. Normal memory, mood, and affect. HEENT -Head: NC/AT; -Eyes: PERRL, EOMI. No discharge or redn ess; -Ears: External ears are normal. -Nose: Normal nares. NECK: Supple, with no masses. CV: RRR, no m/r/g. LUNGS: CTAB, no w/r/c. ABD: N/A : N/A SKIN: Warm, well perfused. No skin rashes or abnormal lesions. MSK: No deformities, Normal gait. EXT: No clubbing, cyanosis, or edema. NEURO: Normal muscle strength and tone. No focal deficits. Results & Data Results & Data Vital Signs (Past 12 Hours) Vital Signs Temp Pulse Pulse Pulse Resp BP BP 08/07/25 12:50 96 H 110/64 08/07/25 12:39 36.5 C 96 H 08/07/25 11:11 08/07/25 10:51 36.5 C 108 H 17 08/07/25 07:12 36.9 C 70 16 08/07/25 03:07 36.7 C 91 H 16 148/94 H BP Pulse Ox O2 Del Method O2 Flow Rate 08/07/25 12:50 08/07/25 12:39 08/07/25 11:11 Nasal Cannula 1 08/07/25 10:51 131/76 93 Nasal Cannula 08/07/25 07:12 139/88 100 Room Air 08/07/25 03:07 98 Nasal Cannula 2.0 Laboratory Results 08/07/25 12:46 08/07/25 05:36 Abnormal Lab Results 08/06/25 08/06/25 08/06/25 14:55 16:27 20:40 WBC RBC Hgb Hct MCV MCH MCHC RDW Std Deviation RDW Coeff of Sean Plt Count MPV Immature Gran % (Auto) Neut % (Auto) Lymph % (Auto) [place] % (Auto) Eos % (Auto) Baso % (Auto) Neut # (Auto) Lymph # (Auto) [place] # (Auto) Eos # (Auto) Baso # (Auto) Immature Gran # (Auto) Absolute Nucleated RBC Nucleated RBC % (auto) Sodium Potassium Chloride Carbon Dioxide Anion Gap BUN Creatinine Est Cr Clr Drug Dosing eGFR BUN/Creatinine Ratio Glucose POC Glucose 144 H 124 H Estimat Average Glucose Hemoglobin A1c Calcium Phosphorus Magnesium Total Bilirubin 0.5 Lactate Dehydrogenase 280 H Total Protein 5.7 L Albumin 2.7 L Fluid Neutrophils % Fluid Lymphocytes % Fluid Meso/Macro/[place] % Fluid Comment Pleural Fluid Source Pleural Color Pleural Appearance Pleural pH Pleural WBC (Auto) Pleural RBC (Auto) Pleural Total Protein Pleural LDH Pleural Glucose Pleural Amylase 08/06/25 08/07/25 08/07/25 Unknown 03:07 05:36 WBC RBC Hgb Hct MCV MCH MCHC RDW Std Deviation RDW Coeff of Sean Plt Count MPV Immature Gran % (Auto) Neut % (Auto) Lymph % (Auto) [place] % (Auto) Eos % (Auto) Baso % (Auto) Neut # (Auto) Lymph # (Auto) [place] # (Auto) Eos # (Auto) Baso # (Auto) Immature Gran # (Auto) Absolute Nucleated RBC Nucleated RBC % (auto) Sodium 140 Potassium 3.7 Chloride 103 Carbon Dioxide 29 Anion Gap 8 BUN 26 H D Creatinine 2.02 H D Est Cr Clr Drug Dosing 17.3 eGFR 24.04 BUN/Creatinine Ratio 12.9 Glucose 143 H POC Glucose 165 H Estimat Average Glucose 123 Hemoglobin A1c 5.9 H Calcium 8.3 L Phosphorus 3.0 D Magnesium 2.0 Total Bilirubin Lactate Dehydrogenase Total Protein Albumin Fluid Neutrophils % 18 Fluid Lymphocytes % 24 Fluid Meso/Macro/[place] % 58 Fluid Comment Pleural Fluid Source Left Lung Pleural Color Yellow Pleural Appearance Clear Pleural pH 7.56 H Pleural WBC (Auto) 288 Pleural RBC (Auto) < 2000 Pleural Total Protein < 3.0 Pleural LDH 100 Pleural Glucose 160 Pleural Amylase < 10 08/07/25 08/07/25 08/07/25 07:16 10:56 12:46 WBC 9.73 RBC 2.72 L Hgb 8.7 L Hct 26.9 L MCV 98.9 MCH 32.0 MCHC 32.3 RDW Std Deviation 64.4 H RDW Coeff of Sean 17.8 H Plt Count 170 MPV 11.1 Immature Gran % (Auto) 1.1 Neut % (Auto) 82.0 Lymph % (Auto) 7.4 [place] % (Auto) 8.9 Eos % (Auto) 0.2 Baso % (Auto) 0.4 Neut # (Auto) 7.97 H Lymph # (Auto) 0.72 L [place] # (Auto) 0.87 H Eos # (Auto) 0.02 Baso # (Auto) 0.04 Immature Gran # (Auto) 0.11 Absolute Nucleated RBC 0.02 Nucleated RBC % (auto) 0.2 Sodium Potassium Chloride Carbon Dioxide Anion Gap BUN Creatinine Est Cr Clr Drug Dosing eGFR BUN/Creatinine Ratio Glucose POC Glucose 121 H 164 H Estimat Average Glucose Hemoglobin A1c Calcium Phosphorus Magnesium Total Bilirubin Lactate Dehydrogenase Total Protein Albumin Fluid Neutrophils % Fluid Lymphocytes % Fluid Meso/Macro/[place] % Fluid Comment Pleural Fluid Source Pleural Color Pleural Appearance Pleural pH Pleural WBC (Auto) Pleural RBC (Auto) Pleural Total Protein Pleural LDH Pleural Glucose Pleural Amylase Diagnostic Findings Thoracentesis/Paracentesis US 08/06/25 10:23 ULTRASOUND-GUIDED LEFT THORACENTESIS CLINICAL HISTORY: Left pleural effusion PROCEDURE: Procedure and risks were explained. Informed consent was obtained. A final timeout was completed. The left posterior thorax was prepped and draped in sterile fashion. 1% lidocaine was utilized for skin anesthesia. Utilizing ultrasound guidance, a 5 [place] safety centesis catheter was advanced into the left pleural effusion. Ultrasound images were obtained. A total of 1000 mL of yellow pleural fluid was removed and sent to the lab. The catheter was removed and Band-Aid applied. The patient tolerated the procedure well. A chest x-ray will be obtained post procedure. Vital signs will be monitored postprocedure. IMPRESSION: Ultrasound-guided left thoracentesis as above. Performed, dictated, and signed by Hayes Silva PA-C; to be co-signed by Dr. Saman Oliva. Electronically signed by: Saman Oliva M.D. 08/06/2025 3:12 PM Chest X-Ray 08/06/25 14:21 XR chest 1V not portable CLINICAL HISTORY: s/p left thora COMPARISON STUDY: 08/05/2025 FINDINGS: Stable right dialysis catheter. Stable left atrial appendage occlusion device. Stable cardiomegaly with mild pulmonary vascular congestion. There is a trace left pleural effusion with mild adjacent left lung base atelectasis, significantly improved. No pneumothorax. IMPRESSION: No pneumothorax. ACT 112: Negative or not required by law. Electronically signed by: Saman Oliva M.D. 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
[2025-08-07] MEDS: ALBUMIN 25% 12.5 GM/50 ML VIAL IV ONE (14:53)
--- NOTE | 2025-08-07 15:32 | Dialysis Progress Note ---
Date of Service August 07, 2025 Assessment & Plan (1) ESRD (end stage renal disease): Plan: profound volume overload in the setting of ESRD and HFrEF. >HD today 4 hrs w/ as aggressive UF as she will tolerate; at OP HD she has routinely not hit UF goals d/t hypotension; limit UFR as below -Given issues with catheter which have limited us completing her treatments, will do heparin bolus today -Continue lowered FR to 1.2 L for now -likely to need daily HD for several days to optimize vol status w/ additional help from thoracentesis as appropriate >note rivastigmine not removed by HD; no dose adjustment needed typically >> did talk to about challenges of managing this complex pt with teams from [place] of [place] adjusting medications; he states he's working to consolidate care Note that neurology here recommends not resuming rivastigmine. Note also that cerebral amyloid angiopathy per them precludes cardiac cath. I will say that the basis for cerebral amyloid angiopathy diagnosis is unclear: I reviewed August 31, 2024 neurology note from [facility] which states that the diagnosis is based on imaging. I note that the patient had an MRI of her brain done in the [facility] system September 2024 and no mention of CAA is on the differential. Will update Dr. Carolina to see if she wishes to pursue further evaluation with neurology. Care reviewed by [facility] w/ Dr Carolina regarding HD timing/goals, f/u of hgb, basis of angiopathy dx plans; we are in agreement. (2) NSTEMI (non-ST elevation myocardial infarction): Plan: >high risk for worsening cardiac status w/ active NSTEMI and hemodynamic changes inevitable w/ dialysis. that said, we must remove fluid to improve her volume status and stabilize her HF/cardiac issues best we can >> slow/gentle/frequent HD best we can in hospital is most appropriate for her; do not believe that CRRT is obligate here but will monitor for need (would require transfer) -in the setting of new HFrEF (from last month at 25%) and permanent AFib d/t this will keep UF rate below 7.5 ml/kg/hr for medical mgt per cardiology > retimed metoprolol, cozaar doses so she has more BP for tx and so that BB is not removed w/ dialysis (3) Pleural effusion: Plan: Status post August 06 1 L thoracentesis left; transudative fluid studies; pathology pending (4) Anemia: Plan: some is dilutional; that said, hemoglobin is trending down slowly to 8.7 today iron stores at [facility] on 07/26 t sat 26%; no need for venofer; avoid VALERIE w/ active UT (5) Generalized weakness: Plan: improved some today; fairly poor functional status at baseline > transfers w/ asst at best Admission and Anticipated Discharge Date Admission Date: August 05, 2025 Subjective Seen and evaluated on dialysis. No acute interval events clinically, except that she stopped treatment 30 minutes early yesterday due to frequent catheter alarms. Neurology evaluated the patient and recommends no resumption of rivastigmine and defers cardiac cath due to diagnosis of cerebral amyloid angiopathy. Patient denies shortness of breath, uncontrolled pain, nausea, chest discomfort; was 100% on room air this morning Review of Systems 2 Review of Systems: All systems reviewed & are unremarkable except as noted in Subjective Physical Exam 2 Constitutional: well developed (on ), + cachectic, + physical limitations, + frail appearing and cooperative; no acute distress Eyes: EOM intact bilaterally ENMT: Mouth: + dry oral mucous membranes Neck: no nuchal rigidity Respiratory: normal respiratory effort Auscultation: + diminished lung sounds Cardiovascular: Rate/Rhythm: regular rate and + irregularly irregular E xtremities: + edema (1+ BL ankles, trace pretibial) Gastrointestinal (Abdomen): Inspection/Auscultation: normal bowel sounds P ercussion/Palpation: abdomen soft; abdomen nontender Musculoskeletal: Extremities: + limited ROM of extremities and + abnormal strength Skin: no rashes, warm and dry Results & Data Vital Signs (Past 12 Hours) Vital Signs Temp Pulse Pulse Pulse Resp BP BP 08/07/25 14:30 88 131/74 08/07/25 14:00 93 H 136/83 08/07/25 13:30 102 H 127/76 08/07/25 13:00 81 121/57 L 08/07/25 12:50 96 H 110/64 08/07/25 12:39 36.5 C 96 H 08/07/25 11:11 08/07/25 10:51 36.5 C 108 H 17 131/76 08/07/25 07:12 36.9 C 70 16 139/88 Pulse Ox O2 Del Method O2 Flow Rate 08/07/25 14:30 08/07/25 14:00 08/07/25 13:30 08/07/25 13:00 08/07/25 12:50 08/07/25 12:39 08/07/25 11:11 Nasal Cannula 1 08/07/25 10:51 93 Nasal Cannula 08/07/25 07:12 100 Room Air Laboratory Results 08/07/25 12:46 08/07/25 05:36 (4) Anemia Anemia type: unspecified type Qualified Code(s): D64.9 - Anemia, unspecified
[2025-08-08 06:06] LABS: Hematocrit (blood only) 25.8 % (37.0-47.0); Hemoglobin 7.9 g/dl (12.0-16.0); Mean Corpuscular Hemoglobin 30.6 pg (25.0-34.0); Mean Corpuscular Volume 100.0 fL (80.0-100.0); Platelet Count 166 K/uL (130-400); RDW Standard Deviation 63.3 fL (36.4-46.3); Red Blood Count 2.58 M/uL (4.20-5.40); White Blood Count 7.11 K/ul (4.8-10.8)
[2025-08-08 06:21] LABS: Anion Gap 5.0 (3-11); Blood Urea Nitrogen 16.0 mg/dl (6-23); Calcium 8.2 mg/dl (8.6-10.3); Carbon Dioxide 28.0 mmol/L (21-32); Chloride 105.0 mmol/L (98-107); Creatinine Clr Calc Pharmacy 24.4 ml/min; Glucose 143.0 mg/dl (70-99(Fasting)); Magnesium 1.9 mg/dl (1.7-2.4); Potassium 3.9 mmol/L (3.5-5.1); Sodium 138.0 mmol/L (136-145)
[2025-08-08] MEDS ORDERED: SODIUM CHLORIDE 0.9% 1,000 ML IV PRN (07:00)
[2025-08-08] MEDS: ACETAMINOPHEN 1,000 MG/100 ML VIAL IV STA (10:06)
--- NOTE | 2025-08-08 10:36 | Cardiology Progress Note ---
Date of Service August 08, 2025 Assessment & Plan (1) NSTEMI (non-ST elevation myocardial infarction): (2) ESRD (end stage renal disease): (3) Pleural effusion: (4) HFrEF (heart failure with reduced ejection fraction): Plan Assessment: 84 year old medically complex female admitted for cognitive decline, weakness and lower extremity swelling. High sensitivity troponin elevation with no acute ST-T wave elevation on EKG, in addition to missed HD treatment and elevated lactate levels. Chest xray with significant left pleural effusion. Cardiology consulted for further evaluation and recommendations. 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 Dementia Multiple subacute and old b/l rib fractures Recommendations: As per communication with hospitalist according to Neurology patient is "very high risk for anticoagulation or anti platelets therefore would recommend medical management with no cardiac cath, revasularization HD as per Renal correct and f/u electrolytes increased risk for complications associated with anticoagulation including risk for fall with multiple subacute and old rib fractures GDMT for HFrEF as tolerated and limited due to renal insufficiency and possible amyloid heart disease continue metoprolol cont losartan cont statin adjust rate control meds keeping HR between 60 to 100 BPM and systolic BP between 100-140 mmHg adjust anti-HTN meds keeping systolic BP between 100-140 mmHg avoid hypovolemia keep patient euvolemic DVT prophylaxis maximize medical management as tolerated poor prognosis GOC - defer to primary DVT proph please recall if needed will sign off Admission and Anticipated Discharge Date Admission Date: August 05, 2025 Subjective Patient on exam is lying in bed in NAD; breathing is stable; at bedside; had HD on 08/07/25. As per communication with hospitalist according to Neurology patient is "very high risk for anticoagulation or anti platelets". DW patient's . Review of Systems Review of Systems: as per HPI Physical Exam Constitutional: + ill appearing; no acute distress Neck: normal visual inspection and trachea midline Respiratory: normal respiratory effort and + cough; no respiratory distress and no labored breathing Auscultation: + diminished lung sounds (left lung); no crackles, no rales, no rhonchi and no wheezes Cardiovascular: Rate/Rhythm: + irregularly irregular Vessels: dorsalis pedis pulses present; no JVD Skin: no rashes, warm and dry Psychiatric: Orientation: alert confused Results & Data Vital Signs (Past 12 Hours) Vital Signs Temp 36.7 C 08/08/25 07:15 Pulse 81 08/08/25 07:15 Resp 18 08/08/25 07:15 BP 151/84 H 08/08/25 07:15 Pulse Ox 98 08/08/25 07:15 O2 Del Method Nasal Cannula 08/08/25 09:04 O2 Flow Rate 1 08/08/25 09:04 Intake & Output 08/07/25 08/08/25 08/08/25 18:59 06:59 18:59 Intake Total 290 / 530 240 / 530 100 / 100 Balance 290 / 530 240 / 530 100 / 100 Weight 50.8 kg 50 kg Intake: IV 50 / 50 100 / 100 Acetaminophen 1,000 mg In 100 100 / 100 ml @ 400 mls/hr IV NOW STA Rx#: [id number] Albumin 25% 12.5 gm In 50 ml @ 50 / 50 50 mls/hr IV ONCE ONE Rx#: [id number] Oral 240 / 480 240 / 480 Other: Hemodialysis Ultrafiltration 1,500 Amount Weight Measurement Method [facility] Vital Signs Temp Pulse Pulse Pulse Resp BP BP 08/08/25 09:04 08/08/25 07:15 36.7 C 81 18 151/84 H 08/08/25 03:03 37.0 C 86 18 153/92 H 08/07/25 23:38 08/07/25 23:11 83 08/07/25 22:48 36.7 C 88 18 126/70 Pulse Ox O2 Del Method O2 Flow Rate 08/08/25 09:04 Nasal Cannula 1 08/08/25 07:15 98 Nasal Cannula 2 08/08/25 03:03 96 Nasal Cannula 2 08/07/25 23:38 Nasal Cannula 1 08/07/25 23:11 08/07/25 22:48 98 Nasal Cannula 2 Laboratory Results Laboratory Results WBC 7.11 K/ul (4.8-10.8) 08/08/25 05:31 RBC 2.58 M/uL (4.20-5.40) L 10/09/25 05:31 Hgb 7.9 g/dl (12.0-16.0) L 08/08/25 05:31 POC Hgb 11.2 g/dl (12.0-16.0) L 08/05/25 10: Hct 25.8 % (37.0-47.0) L 08/08/25 05: POC Hct 33 % (37-47) L 08/05/25 10: MCV 100.0 fL (80.0-100.0) 08/08/25 05:31 MCH 30.6 pg (25.0-34.0) 08/08/25 05: MCHC 30.6 g/dL (32.0-36.0) L 08/08/25 05: RDW Std Deviation 63.3 fL (36.4-46.3) H 08/08/25 05: RDW Coeff of Sean 17.3 % (11.5-14.5) H 08/08/25 05: Plt Count 166 K/uL (130-400) 08/08/25 05: MPV 11.1 fL (9.4-12.4) 08/08/25 05:31 Immature Gran % (Auto) 1.1 % 08/07/25 12:46 Neut % (Auto) 82.0 % 08/07/25 12:46 Lymph % (Auto) 7.4 % 08/07/25 12:46 Crockett % (Auto) 8.9 % 08/07/25 12:46 Eos % (Auto) 0.2 % 08/07/25 12:46 Baso % (Auto) 0.4 % 08/07/25 12:46 Neut # (Auto) 7.97 K/uL (1.40-6.50) H 08/07/25 12:46 Lymph # (Auto) 0.72 K/uL (1.20-3.40) L 08/07/25 12:46 Crockett # (Auto) 0.87 K/uL (0.11-0.59) H 08/07/25 12:46 Eos # (Auto) 0.02 K/uL (0.00-0.50) 08/07/25 12:46 Baso # (Auto) 0.04 K/uL (0.00-0.20) 08/07/25 12:46 Immature Gran # (Auto) 0.11 K/uL (0.01-0.20) 08/07/25 12:46 Absolute Nucleated RBC 0.02 K/uL (0.00-0.12) 08/07/25 12:46 Nucleated RBC % (auto) 0.2 % 08/07/25 12:46 VBG pH 7.38 (7.36-7.41) 08/05/25 12:12 VBG pCO2 52 mmHg (38-50) H 08/05/25 12:12 VBG pO2 25 mmHg 08/05/25 12:12 VBG HCO3 31 mmol/L 08/05/25 12:12 VBG O2 Saturation < 60.0 % 08/05/25 12:12 VBG Base Excess 4.7 mEq/L 08/05/25 12:12 POC Sodium 136 mmol/L (135-144) 08/05/25 10: Sodium 138 mmol/L (136-145) 08/08/25 05:31 POC Potassium 4.1 mmol/L (3.3-5.0) 08/05/25 10:25 Potassium 3.9 mmol/L (3.5-5.1) 08/08/25 05:31 POC Chloride 102 mmol/L (101-112) 08/05/25 10: Chloride 105 mmol/L (98-107) 08/08/25 05:31 Carbon Dioxide 28 mmol/L (21-32) 08/08/25 05:31 POC Total CO2 27 mmol/L (24-31) 08/05/25 10:25 Anion Gap 5 (3-11) 08/08/25 05:31 POC Anion Gap 13.0 mmol/L (16-25) L 08/05/25 10:25 POC BUN 44 mg/dl (7-18) H 08/05/25 10:25 BUN 16 mg/dl (6-23) 08/08/25 05:31 Creatinine 1.38 mg/dl (0.6-1.2) H D 08/08/25 05:31 POC Creatinine 3.2 mg/dl (0.6-1.3) H 08/05/25 10:25 Est Cr Clr Drug Dosing 24.4 ml/min 08/08/25 05:31 eGFR 37.98 08/08/25 05:31 BUN/Creatinine Ratio 11.6 (10-20) 08/08/25 05:31 Glucose 143 mg/dl (70-99(Fasting)) H 08/08/25 05:31 POC Glucose 130 mg/dl (70-99) H 08/08/25 07:14 POC Glucose (other) 124 mg/dl (70-99) H 08/05/25 10:25 Estimat Average Glucose 123 mg/dl 08/07/25 05:36 Hemoglobin A1c 5.9 % (4.5-5.6) H 08/07/25 05:36 Lactate 2.2 mmol/L (0.4-2.0) H* 08/05/25 12:53 Calcium 8.2 mg/dl (8.6-10.3) L 08/08/25 05:31 POC Ioniz Calcium Ryan 1.06 mmol/l (1.12-1.32) L 08/05/25 10:25 Phosphorus 2.0 mg/dl (2.5-4.9) L D 08/08/25 05:31 Magnesium 1.9 mg/dl (1.7-2.4) 08/08/25 05:31 Total Bilirubin 0.5 mg/dl (0.2-1.0) 08/06/25 14:55 AST 47 U/L (13-39) H 08/06/25 05:40 ALT 75 U/L (7-52) H 08/06/25 05:40 Alkaline Phosphatase 134 U/L (34-104) H 08/06/25 05:40 Ammonia 32.0 umol/L (18-72) 08/05/25 11:30 Lactate Dehydrogenase 280 U/L (86-244) H 08/06/25 14:55 Troponin I High Sens 3580.5 pg/ml (0-14) H* 08/05/25 16:53 B-Natriuretic Peptide 2697 pg/ml (0-100) H 08/05/25 11:30 Total Protein 5.7 gm/dl (6.0-8.3) L 08/06/25 14:55 Albumin 2.7 gm/dl (3.4-5.0) L 08/06/25 14:55 Globulin 2.6 gm/dl (2.5-4.0) 08/06/25 05:40 Albumin/Globulin Ratio 1.0 (0.9-2) 08/06/25 05:40 TSH 0.228 uIu/ml (0.300-4.500) L 08/05/25 10: Free T4 1.48 ng/dl (0.61-1.60) 08/05/25 10:25 Fluid Neutrophils % 18 % 08/06/25 Unknown Fluid Lymphocytes % 24 % 08/06/25 Unknown Fluid Meso/Macro/Crockett % 58 % 08/06/25 Unknown Fluid Comment 08/06/25 Unknown Pleural Fluid Source Left Lung 08/06/25 Unknown Pleural Color Yellow 08/06/25 Unknown Pleural Appearance Clear 08/06/25 Unknown Pleural pH 7.56 (7.3-7.4) H 08/06/25 Unknown Pleural WBC (Auto) 288 /uL 08/06/25 Unknown Pleural RBC (Auto) < 2000 /uL 08/06/25 Unknown Pleural Total Protein < 3.0 gm/dl 08/06/25 Unknown Pleural LDH 100 U/L 08/06/25 Unknown Pleural Glucose 160 mg/dl 08/06/25 Unknown Pleural Amylase < 10 U/L 08/06/25 Unknown Nasal Screen MRSA (PCR) Negative (Negative) 08/05/25 15:08 Adenovirus (PCR) Not Detected (NotDetected) 08/05/25 15:08 B. pertussis DNA (PCR) Not Detected (NotDetected) 08/05/25 15:08 B.parapertussis DNA PCR Not Detected (NotDetected) 08/05/25 15:08 C. pneumoniae DNA (PCR) Not Detected (NotDetected) 08/05/25 15:08 Coronavirus OC43 (PCR) Not Detected (NotDetected) 08/05/25 15:08 Coronavirus HKU1 (PCR) Not Detected (NotDetected) 08/05/25 15:08 Coronavirus 229E (PCR) Not Detected (NotDetected) 08/05/25 15:08 SARS-CoV-2 (PCR) Not Detected (NotDetected) 08/05/25 15:08 Coronavirus NL63 (PCR) Not Detected (NotDetected) 08/05/25 15:08 Hep Bs Antigen Negative (Negative) 08/05/25 16:53 Hep Bs Antibody Non-Immune 08/05/25 16:53 Hep Bs Antibody, Quant < 3.00 mIU/mL (>or=10mIU/mL Immune) 08/05/25 16:53 Human Metapneumovir PCR Not Detected (NotDetected) 08/05/25 15:08 Influenza Type A (PCR) Not Detected (NotDetected) 08/05/25 15:08 Influenza Type B (PCR) Not Detected (NotDetected) 08/05/25 15:08 M. pneumoniae (PCR) Not Detected (NotDetected) 08/05/25 15:08 Parainfluenza 1 (PCR) Not Detected (NotDetected) 08/05/25 15:08 Parainfluenza 2 (PCR) Not Detected (NotDetected) 08/05/25 15:08 Parainfluenza 3 (PCR) Not Detected (NotDetected) 08/05/25 15:08 Parainfluenza 4 (PCR) Not Detected (NotDetected) 08/05/25 15:08 RSV (PCR) Not Detected (NotDetected) 08/05/25 15:08 Entero/Rhino (PCR) Not Detected (NotDetected) 08/05/25 15:[address] 08/05/25 10:33 CT SCAN OF THE BRAIN WITHOUT IV CONTRAST CLINICAL HISTORY: Weakness. Confusion. COMPARISON STUDY: Head CT June 30, 2025. TECHNIQUE: Unenhanced axial CT scan of the brain was performed from the vertex to the skull base. A dose lowering technique was utilized adhering to the principles of ALARA. CT DOSE: 625.8 mGy.cm FINDINGS: No acute intracranial hemorrhage, midline shift or mass effect is present. Ventricular system is stable. Ventricular dilatation is likely due to central atrophy. Multifocal encephalomalacia is unchanged. The appearance of the brain is unchanged. There are no findings to suggest acute dural sinus thrombosis or acute territorial infarct. A left frontoparietal craniotomy is again noted. There are no calvarial fractures. There is minimal sinus mucosal thickening. IMPRESSION: No acute intracranial findings. No change in appearance of the brain. ACT 112: Negative or not required by law. Electronically signed by: Jossue Ernandez M.D. 08/05/2025 12:[address] 08/05/25 14:35 CT OF THE CHEST WITHOUT IV CONTRAST CLINICAL HISTORY: Pleural effusion vs pneumonia. COMPARISON STUDY: Chest radiograph performed earlier today. Chest radiograph June 28, 2025. CT DOSE: 297.46 mGy.cm TECHNIQUE: Axial images of the chest were obtained without IV contrast. Images were reviewed in the axial, sagittal, and coronal planes. IV contrast was not administered for this examination. Automated exposure control was utilized for the study. A dose lowering technique was utilized adhering to the principles of ALARA. FINDINGS: A dual lumen right internal jugular dialysis catheter is in place. The heart is moderately enlarged. Left atrial appendage occluder device is noted. There is a trace pericardial effusion. There is decreased attenuation of the cardiac blood pool. Anasarca is noted. Large left and small right pleural effusions are present. Extensive left lower lobe airspace opacity with volume loss favors segmental atelectasis. There is also segmental atelectasis within the left upper lobe. Mild ground glass opacities within the lungs are noted with mild interlobular septal thickening consistent with pulmonary edema. There is a small 2.6 cm subpleural airspace opacity within the right lower lobe on image 161. There is no pneumothorax. No thoracic lymphadenopathy is present. Several old right-sided rib fractures are present. There are numerous old left-sided rib fractures as well. There are also several additional suspected subacute left- sided rib fractures. There is an old sternal fracture. Mild thoracic spine compression deformities are probably chronic. Asymmetric left breast edema is present. IMPRESSION: 1. Large left and small right pleural effusions. Compressive subsegmental left lower lobe and lingular atelectasis. 2. Cardiomegaly with pulmonary edema. Anasarca. Nonspecific asymmetric left breast edema. 3. Small 2.6 cm subpleural right lower lobe alveolar opacity. This could represent alveolar pulmonary edema or a small focus of pneumonia. 4. Decreased attenuation of the cardiac blood pool which could indicate anemia. 5. Multiple subacute left-sided rib fractures. Numerous old bilateral rib fractures. No pneumothorax. ACT 112: Negative or not required by law. Electronically signed by: Jossue Ernandez M.D. 08/05/2025 4:16 PM Abdomen/Pelvis CT 08/05/25 18:43 Exam(s): CT ABDOMEN + PELVIS Without Contrast EXAM: CT Abdomen and Pelvis Without Intravenous Contrast CLINICAL HISTORY: bloating, encephalopathy. TECHNIQUE: Axial computed tomography images of the abdomen and pelvis without intravenous contrast. CTDI is 12.69 mGy and DLP is 588.65 mGy-cm. Automated exposure control was utilized for the study. A dose lowering technique was utilized adhering to the principles of ALARA. COMPARISON: No relevant prior studies available. FINDINGS: Artifacts: Scatter artifact likely related to patient's arm position. Limitations: There is diffuse respiratory artifact, which degrades image quality throughout the examination. Lung bases: The left lower lobe is completely decompressed. Subsegmental patchy opacity involving the lateral aspect of the right lower lobe. Pleural space: Mild right and jgelbqqu-fq-beysz left pleural effusions noted. Heart: Cardiomegaly. ABDOMEN: Liver: Unremarkable. Gallbladder and bile ducts: The gallbladder is mildly distended. No calcified gallstones. No obvious biliary dilatation. Pancreas: Evaluation of the pancreas is limited with respiratory artifact and lack of IV contrast. However, there abnormal at least 2 distinct cystic lesions noted in the pancreatic head measuring up to 2.3 cm in diameter and up to 2.5 cm in length. No ductal dilation involving the pancreatic tail. Spleen: Unremarkable. No splenomegaly. Adrenals: Unremarkable. No mass. Kidneys and ureters: Unremarkable. No obstructing stones. No hydronephrosis. Stomach and bowel: The stomach is decompressed with gastric wall thickening noted throughout. No evidence for bowel obstruction. Evaluation of the bowel mucosa is slightly limited without contrast; however, no definite focal asymmetry suggested. Jgce-tt-bclcvizz stool burden. PELVIS: Appendix: No findings to suggest acute appendicitis. Bladder: Unremarkable. No stones. Reproductive: Unremarkable as visualized. ABDOMEN and PELVIS: Intraperitoneal space: Trace fluid in the dependent pelvis. No loculation. No free air. Bones/joints: A left hip arthroplasties noted. No acute osseous abnormality. No dislocation. Soft tissues: Diffuse soft tissue edema suggesting anasarca. Vasculature: Atherosclerotic disease. No abdominal aortic aneurysm. Lymph nodes: Unremarkable. No enlarged lymph nodes. IMPRESSION: 1. Diffuse soft tissue edema suggesting anasarca. 2. Mild right and qllzgvdd-jy-qfmfw left pleural effusions noted. 3. Evaluation of the pancreas is limited with respiratory artifact and lack of IV contrast. However, there abnormal at least 2 distinct cystic lesions noted in the pancreatic head measuring up to 2.3 cm in diameter and up to 2.5 cm in length. No ductal dilation involving the pancreatic tail. Differential consideration includes pancreatic pseudocyst versus benign and malignant cystic lesions of the pancreas. Recommend dedicated high-resolution imaging of the pancreas, ideally when the patient is able to breath hold for the examination. 4. Trace fluid in the dependent pelvis. No loculation. 5. No evidence for bowel obstruction. Evaluation of the bowel mucosa is slightly limited without contrast; however, no definite focal asymmetry suggested. Dpqf-pc-fhmvzzgl stool burden. No pneumoperitoneum. Electronically signed by: Hayes Streeter MD 08/05/25 21:31 PM Thoracentesis/Paracentesis US 08/06/25 10:23 ULTRASOUND-GUIDED LEFT THORACENTESIS CLINICAL HISTORY: Left pleural effusion PROCEDURE: Procedure and risks were explained. Informed consent was obtained. A final timeout was completed. The left posterior thorax was prepped and draped in sterile fashion. 1% lidocaine was utilized for skin anesthesia. Utilizing ultrasound guidance, a 5 Turkish safety centesis catheter was advanced into the left pleural effusion. Ultrasound images were obtained. A total of 1000 mL of yellow pleural fluid was removed and sent to the lab. The catheter was removed and Band-Aid applied. The patient tolerated the procedure well. A chest x-ray will be obtained post procedure. Vital signs will be monitored postprocedure. IMPRESSION: Ultrasound-guided left thoracentesis as above. Performed, dictated, and signed by Hayes Silva PA-C; to be co-signed by Dr. Saman Oliva. Electronically signed by: Saman Oliva M.D. 08/06/2025 3:12 PM Chest X-Ray 08/06/25 14:21 XR chest 1V not portable CLINICAL HISTORY: s/p left thora COMPARISON STUDY: 08/05/2025 FINDINGS: Stable right dialysis catheter. Stable left atrial appendage occlusion device. Stable cardiomegaly with mild pulmonary vascular congestion. There is a trace left pleural effusion with mild adjacent left lung base atelectasis, significantly improved. No pneumothorax. IMPRESSION: No pneumothorax. ACT 112: Negative or not required by law. Electronically signed by: Saman Oliva M.D. 08/06/2025 2:41 PM Diagnostic Findings CBC 08/07/25 08/08/25 Range/Units 12:46 05:31 WBC 9.73 7.11 (4.8-10.8) K/ul RBC 2.72 L 2.58 L (4.20-5.40) M/uL Hgb 8.7 L 7.9 L (12.0-16.0) g/dl Hct 26.9 L 25.8 L (37.0-47.0) % Plt Count 170 166 (130-400) K/uL Neut # (Auto) 7.97 H (1.40-6.50) K/uL Lymph # (Auto) 0.72 L (1.20-3.40) K/uL Crockett # (Auto) 0.87 H (0.11-0.59) K/uL Eos # (Auto) 0.02 (0.00-0.50) K/uL Baso # (Auto) 0.04 (0.00-0.20) K/uL Comprehensive Metabolic Panel 08/08/25 Range/Units 05:31 Sodium 138 (136-145) mmol/L Potassium 3.9 (3.5-5.1) mmol/L Chloride 105 (98-107) mmol/L Carbon Dioxide 28 (21-32) mmol/L BUN 16 (6-23) mg/dl Creatinine 1.38 H D (0.6-1.2) mg/dl Glucose 143 H (70-99(Fasting)) mg/dl Calcium 8.2 L (8.6-10.3) mg/dl Intake and Output 08/07/25 08/08/25 08/08/25 22:59 06:59 14:59 Intake Total 290 / 530 100 / 100 Balance 290 / 530 100 / 100 Intake: IV 50 / 50 100 / 100 Acetaminophen 1,000 mg In 100 100 / 100 ml @ 400 mls/hr IV NOW STA Rx#: [id number] Albumin 25% 12.5 gm In 50 ml @ 50 / 50 50 mls/hr IV ONCE ONE Rx#: [id number] Oral 240 / 480 Other: Hemodialysis Ultrafiltration 1,500 Amount Weight 50 kg Weight Measurement Method [facility] Medications Administered Home Medications Medication Instructions Recorded Confirmed Last Taken Aspirin Low-Strength 81 mg PO DAILY 08/05/25 08/05/25 Unknown atorvastatin 40 mg tablet 40 mg PO DAILY 08/05/25 08/05/25 Unknown cholecalciferol (vitamin D3) 25 mcg PO DAILY 08/05/25 08/05/25 Unknown citalopram 10 mg tablet 10 mg PO DAILY 08/05/25 08/05/25 Unknown ezetimibe 10 mg tablet 10 mg PO DAILY 08/05/25 08/05/25 Unknown folic acid 1 mg tablet 1 mg PO DAILY 08/05/25 08/05/25 Unknown losartan 50 mg tablet 50 mg PO DAILY 08/05/25 08/05/25 Unknown metoprolol succinate 100 mg 100 mg PO DAILY 08/05/25 08/05/25 Unknown tablet,extended release 24 hr omeprazole 20 mg capsule,delayed 20 mg PO DAILY 08/05/25 08/05/25 Unknown release rivastigmine 4.6 mg/24 hour 4.6 mg transdermal DAILY 08/05/25 08/05/25 Unknown transdermal patch sodium bicarbonate 650 mg tablet 1,300 mg PO BID 08/05/25 08/05/25 Unknown spironolactone 25 mg tablet 12.5 mg PO DAILY 08/05/25 08/05/25 Unknown Active Medications Generic Name Dose Route Start Last Admin Trade Name Octavio PRN Reason Stop Dose Admin Aspirin 81 mg 08/06/25 09:00 08/08/25 08:22 Aspirin 81 Mg Ectab PO 09/05/25 08:59 81 mg DAILY REMEDIOS Administration Atorvastatin Calcium 40 mg 08/06/25 09:00 08/08/25 08:22 Atorvastatin 40 Mg Tab PO 09/05/25 08:59 40 mg DAILY REMEDIOS Administration Citalopram Hydrobromide 10 mg 08/06/25 09:00 08/08/25 08:22 Citalopram 20 Mg Tab PO 09/05/25 08:59 10 mg DAILY REMEDIOS Administration Ezetimibe 10 mg 08/06/25 09:00 08/08/25 08:22 Ezetimibe 10 Mg Tab PO 09/05/25 08:59 10 mg DAILY REMEDIOS Administration Folic Acid 1 mg 08/06/25 09:00 08/08/25 08:22 Folic Acid 1 Mg Tab PO 09/05/25 08:59 1 mg DAILY REMEDIOS Administration Insulin Aspart 0 each 08/05/25 21:00 08/08/25 10:09 Insulin, Rapid-Acting Pump N/A 09/04/25 20:59 1.4 each ACHS REMEDIOS Administration Protocol Losartan Potassium 50 mg 08/06/25 21:00 08/07/25 21:44 Losartan Potassium 50 Mg Tab PO 09/05/25 20:59 50 mg HS REMEDIOS Administration Metoprolol Succinate 50 mg 08/07/25 09:00 08/08/25 08:23 Metoprolol Succ 50mg Ext Rel Tab PO 09/06/25 08:59 50 mg DAILY REMEDIOS Administration Metoprolol Succinate 50 mg 08/06/25 21:00 08/07/25 21:44 Metoprolol Succ 50mg Ext Rel Tab PO 09/05/25 20:59 50 mg HS REMEDIOS Administration Pantoprazole Sodium 40 mg 08/06/25 09:00 08/08/25 08:23 Pantoprazole 40 Mg Tab PO 09/05/25 08:59 40 mg DAILY REMEDIOS Administration Senna/Docusate Sodium 1 tab 08/06/25 07:35 08/08/25 08:22 Docusate Sodium/Senna 50/8.6mg Tab PO 09/05/25 07:34 Not Given QAM REMEDIOS Spironolactone 12.5 mg 08/06/25 09:00 08/08/25 08:23 Spironolactone 12.5 Mg Tab PO 09/05/25 08:59 12.5 mg DAILY REMEDIOS Administration Vitamin D 25 mcg 08/06/25 09:00 08/08/25 08:22 Cholecalciferol 25 Mcg (1000 Units) Tab PO 09/05/25 08:59 25 mcg DAILY REMEDIOS Administration PG Care Time/CCT Total # of Minutes Spent Total Time Spent with Patient: Total time spent is greater than 50% in coordination of care (as documented) at patient's floor/unit and/or counseling patient: Coding Level of Care Code 73116 SUB INP/OBS CARE 3/50MIN Diagnoses NSTEMI (non-ST elevation myocardial infarction) I21.4 ESRD (end stage renal disease) N18.6 Pleural effusion J90 HFrEF (heart failure with reduced ejection fraction) I50.20
--- NOTE | 2025-08-08 11:45 | Pulmonology Progress Note ---
Date of Service August 08, 2025 Assessment & Plan (1) Chronic bilateral pleural effusions: (2) Pulmonary hypertension: (3) Acute on chronic heart failure with reduced ejection fraction (HFrEF, <= 40%) and combined systolic and diastolic dysfunction: Plan Flora Garcia is an 84-year-old female with past medical history of ESRD recently started on HD, Type I DM, anemia, paroxysmal atrial fibrillation with watchman, HTN, HLD, diastolic heart failure, meningioma s/p resection, cerebral amyloid angiopathy w/ IPH; who presented to [facility] on 08/05/2025 for weakness, confusion, and drowsiness for 2-3 days. Chest x-ray showed bluting of the left costophrenic angle likely related to pleural effusion. CT chest also confirmed the presence of a large left pleural effusion and smaller right effusion with compressive atelectasis. BNP was elevated at 2967. Pulm consulted for pleural effusions. 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 Bilateral pleural effusion; Large left pleural effusion likely related to diastolic heart failure, ESRD and volume overload. -BNP 2967 -HD on 08/06 w/ 1.4 liters off and on 08/07 with 1.5 liters removed. Plan to repeat HD again today. -Thoracentesis of the left effusion on 08/06/25 with IR. Removed 1L of fluid. Post procedure CXR showed significantly improved aeration and reduction of effusion. -Pleural studies show a likely transudative effusion. Cultures prelim negative. Path showing benign mesothelial cells and no malignancy. -Cont management of heart failure. -Plan for HD today with volume removal again if possible. Thank you for allowing us to participate in this patient's care. Please feel free to reach out with questions or concerns. Pulmonary will sign off at this time. 38 minutes is the time spent reviewing the chart, obtaining history, performing the physical exam, coordinating with care teams, and updating the patient and family. Admission and Anticipated Discharge Date Admission Date: August 05, 2025 Subjective Patient subjectively feels tired but breathing is improved. Patient weaned off oxygen and was maintaining SpO2 95% on room air. Pleural fluid path came back showing no signs of malignancy. Pleural fluid cultures remain negative. Plan for another HD session today. Review of Systems 2 Review of Systems: All systems reviewed & are unremarkable except as noted in HPI & below Physical Exam 2 Physical Exam: VITALS: Reviewed. WEIGHT/BMI reviewed. GEN: Well-developed, NAD. PSYCH: Good Judgment. AOx3. Normal memory, mood, and affect. HEENT -Head: NC/AT; -Eyes: PERRL, EOMI. No discharge or redn ess; -Ears: External ears are normal. -Nose: Normal nares. NECK: Supple, with no masses. CV: RRR, no m/r/g. LUNGS: CTAB, no w/r/c. ABD: N/A : N/A SKIN: Warm, well perfused. No skin rashes or abnormal lesions. MSK: No deformities, Normal gait. EXT: No clubbing, cyanosis, or edema. NEURO: Normal muscle strength and tone. No focal deficits. Results & Data Results & Data Vital Signs (Past 12 Hours) Vital Signs Temp Pulse Pulse Resp BP BP Pulse Ox 08/08/25 10:59 36.0 C L 75 18 111/57 L 92 08/08/25 09:04 08/08/25 07:15 36.7 C 81 18 151/84 H 98 08/08/25 03:03 37.0 C 86 18 153/92 H 96 O2 Del Method O2 Flow Rate 08/08/25 10:59 Nasal Cannula 08/08/25 09:04 Nasal Cannula 1 08/08/25 07:15 Nasal Cannula 2 08/08/25 03:03 Nasal Cannula 2 Laboratory Results 08/08/25 05:31 08/08/25 05:31 Abnormal Lab Results 08/07/25 08/07/25 08/07/25 12:46 17:23 20:11 WBC 9.73 RBC 2.72 L Hgb 8.7 L Hct 26.9 L MCV 98.9 MCH 32.0 MCHC 32.3 RDW Std Deviation 64.4 H RDW Coeff of Sean 17.8 H Plt Count 170 MPV 11.1 Immature Gran % (Auto) 1.1 Neut % (Auto) 82.0 Lymph % (Auto) 7.4 Travis % (Auto) 8.9 Eos % (Auto) 0.2 Baso % (Auto) 0.4 Neut # (Auto) 7.97 H Lymph # (Auto) 0.72 L Travis # (Auto) 0.87 H Eos # (Auto) 0.02 Baso # (Auto) 0.04 Immature Gran # (Auto) 0.11 Absolute Nucleated RBC 0.02 Nucleated RBC % (auto) 0.2 Sodium Potassium Chloride Carbon Dioxide Anion Gap BUN Creatinine Est Cr Clr Drug Dosing eGFR BUN/Creatinine Ratio Glucose POC Glucose 148 H 272 H Calcium Phosphorus Magnesium 08/08/25 08/08/25 08/08/25 05:31 07:14 10:59 WBC 7.11 RBC 2.58 L Hgb 7.9 L Hct 25.8 L MCV 100.0 MCH 30.6 MCHC 30.6 L RDW Std Deviation 63.3 H RDW Coeff of Sean 17.3 H Plt Count 166 MPV 11.1 Immature Gran % (Auto) Neut % (Auto) Lymph % (Auto) Travis % (Auto) Eos % (Auto) Baso % (Auto) Neut # (Auto) Lymph # (Auto) Travis # (Auto) Eos # (Auto) Baso # (Auto) Immature Gran # (Auto) Absolute Nucleated RBC Nucleated RBC % (auto) Sodium 138 Potassium 3.9 Chloride 105 Carbon Dioxide 28 Anion Gap 5 BUN 16 Creatinine 1.38 H D Est Cr Clr Drug Dosing 24.4 eGFR 37.98 BUN/Creatinine Ratio 11.6 Glucose 143 H POC Glucose 130 H 176 H Calcium 8.2 L Phosphorus 2.0 L D Magnesium 1.9 Diagnostic Findings No recent imaging. PG Care Time/CCT Total # of Minutes Spent Total Time Spent with Patient: Total time spent is greater than 50% in coordination of care (as documented) at patient's floor/unit and/or counseling patient: Coding Level of Care Code 25255 SUB INP/OBS CARE 2/35MIN Diagnoses Chronic bilateral pleural effusions J90 Pulmonary hypertension I27.20 Acute on chronic heart failure with reduced ejection fraction (HFrEF, <= 40%) and combined systolic and diastolic dysfunction I50.43
--- NOTE | 2025-08-08 13:30 | Hospitalist Progress Note ---
Date of Service August 08, 2025 Assessment & Plan (1) Acute metabolic encephalopathy: Plan: Suspect due to Exelon patch (2) Acute on chronic heart failure with reduced ejection fraction (HFrEF, <= 40%) and combined systolic and diastolic dysfunction: (3) NSTEMI (non-ST elevation myocardial infarction): (4) Chronic bilateral pleural effusions: (5) End-stage renal disease on hemodialysis: (6) Anemia, chronic renal failure: (7) Chronic atrial fibrillation: (8) Cerebral amyloid angiopathy: (9) Pulmonary hypertension: (10) Diabetes mellitus type 2, noninsulin dependent: (11) Cognitive impairment: Plan Per previous providers w/addendum: (1) Lethargy: (2) Pleural effusion: (3) NSTEMI (non-ST elevation myocardial infarction): (4) ESRD (end stage renal disease): Plan: Patient is 84 year old female with PMH End-stage renal disease, recently started on hemodialysis,DM I, anemia of chronic disease, PAF s/p left atrial appendage occluder device placement in March 2024, HTN, HLD, chronic diastolic HF, history of meningioma s/p resection in 2014, multinodular goiter, cerebral amyloid angiopathy with history of cerebral bleed, TIA, cognitive impairment presenting with weakness and drowsiness x 2 to 3 days. WEAKNESS, ACUTE HYPOXIA LARGE LEFT PLEURAL EFFUSION VS. PNEUMONIA ESRD on HD Cardiomyopathy EF 25% Currently on 2 L of O2 via nasal cannula Chest x-ray showing large pleural effusion versus consolidation CT chest obtained -> Pulmonary consulted - and pt is s/p Left thoracentesis (08/06), 1L of fluid removed check for Respiratory panel, MRSA nasal swab blood cultures Nephrology service consulted--> s/p HD (on 08/06, 08/07) and plan for HD today. TROPONIN ELEVATION POSSIBLE NSTEMI diagnosed with Cardiomyopathy EF 25% last July at [facility] no report of chest pain as per family Anticoagulation contraindicated due to history of cerebral bleed, cerebral amyloid angiopathy - discussed w/ neurology in detail Echo obtained continue Metoprolol, Aspirin, Atorvastatin Cardiology consulted - cont. medical management ENCEPHALOPATHY, LETHARGY likely secondary to above CT head negative VBG no hypercapnea from Rivastigmine? It appears that the Exelon patch was restarted about 3 days ago at the recommendation of her neurologist in [place]. Rivastigmine patch was discontinued on (08/06) Neurology consulted and discussed with - (1) Cerebral amyloid angiopathy: Mrs. Garcia presents with cerebral amyloid angiopathy, reduced ejection fraction, and recent confusion after rivastigmine re-initiation, now off the patch and again improving. Please do not restart the rivastigmine. Cardiac cath presents an unacceptable risk of cerebral hemorrhage given her amyloid and the high doses of anticoagulation required. Would also add that DAPT if a stent were placed is also highly risky. Recommend medical management of her heart failure per cardiology. Family in agreement. They plan to return her to [place] after this hospital stay. Would not otherwise start any new medications for her memory. -- Would not pursue cardiac cath due to safety risks in her condition -- Medical management of heart failure -- Stop rivastigmine and do not restart, no other dementia medications recommended. -- Dispo to [place] when stable, no further neurologic workup recommended. Other chronic medical problems: DM1- current Hgb A1c 5.9%, pharmacy glycemic consult Hypertension Paroxysmal A-fib status post left atrial appendage placement- on Metoprolol and Aspirin, not an AC , pt has hx of cerebral amyloid with microhemorrhages Cerebral amyloid angiopathy with history of cerebral bleed TIA History of meningioma s/p resection 2014 DVT prophylaxis SCDs for now CODE STATUS Full code as per Channing at the bedside Disposition - PCU Admission and Anticipated Discharge Date Admission Date: August 05, 2025 Subjective Pt seen in follow up , admitted for AMS In July she was transferred to [facility] for poss. status epilepticus Pt has hx of DM 1 on insulin pump On Rivastigmine patch - now off seen my neurology as well. New on HD - had HD for last 2 days and plan for HD again today Currently lying in bed in NAD She is awake, and able to answer some simple questions. Her is present at the bedside and answers most questions. Says he fed her breakfast and after that she developed abdominal discomfort. Ordered tylenol. On my evaluation she is able to look at me, denies any discomfort or pain. Looks tired. Pt currently denies any chest pain, shortness of breath, abd. pain. S/p left thoracentesis and S/p HD yesterday. Plan for HD today. Review of Systems Review of Systems: All systems reviewed & are unremarkable except as noted in Subjective Physical Exam Physical Exam: General- awake, not in distress, answers some simple questions appropriately, breathing with no effort or accessory muscle use Head- atraumatic Eyes- PERRL, EOMI, anicteric Neck- supple, no JVD Lungs- decreased breath sounds, no wheezing Heart- normal rate, irregular rhythm; no murmur Abdomen- normal bowel sounds, nondistended, soft, nontender Extremities- no pretibial edema, moves extremities while lying in bed Neuro- awake, generally weak, answers some simple questions appropriately, moves extremities while lying in bed Skin- warm & dry Results & Data Results & Data Vital Signs (Past 12 Hours) Vital Signs Temp Pulse Pulse Pulse Resp BP BP 08/08/25 12:30 76 128/79 08/08/25 12:00 85 106/71 08/08/25 11:30 66 114/64 08/08/25 11:17 88 111/69 08/08/25 11:11 36.9 C 90 08/08/25 10:59 36.0 C L 75 18 111/57 L 08/08/25 09:04 08/08/25 07:15 36.7 C 81 18 151/84 H 08/08/25 03:03 37.0 C 86 18 BP Pulse Ox O2 Del Method O2 Flow Rate 08/08/25 12:30 08/08/25 12:00 08/08/25 11:30 08/08/25 11:17 08/08/25 11:11 08/08/25 10:59 92 Nasal Cannula 08/08/25 09:04 Nasal Cannula 1 08/08/25 07:15 98 Nasal Cannula 2 08/08/25 03:03 153/92 H 96 Nasal Cannula 2 Laboratory Results 08/08/25 08/08/25 08/08/25 Range/Units 10:59 07:14 05:31 WBC 7.11 (4.8-10.8) K/ul RBC 2.58 L (4.20-5.40) M/uL Hgb 7.9 L (12.0-16.0) g/dl Hct 25.8 L (37.0-47.0) % MCV 100.0 (80.0-100.0) fL MCH 30.6 (25.0-34.0) pg MCHC 30.6 L (32.0-36.0) g/dL RDW Std Deviation 63.3 H (36.4-46.3) fL RDW Coeff of Sean 17.3 H (11.5-14.5) % Plt Count 166 (130-400) K/uL MPV 11.1 (9.4-12.4) fL Sodium 138 (136-145) mmol/L Potassium 3.9 (3.5-5.1) mmol/L Chloride 105 (98-107) mmol/L Carbon Dioxide 28 (21-32) mmol/L Anion Gap 5 (3-11) BUN 16 (6-23) mg/dl Creatinine 1.38 H D (0.6-1.2) mg/dl Est Cr Clr Drug Dosing 24.4 ml/min eGFR 37.98 BUN/Creatinine Ratio 11.6 (10-20) Glucose 143 H (70-99(Fasting)) mg/dl POC Glucose 176 H 130 H (70-99) mg/dl Calcium 8.2 L (8.6-10.3) mg/dl Phosphorus 2.0 L D (2.5-4.9) mg/dl Magnesium 1.9 (1.7-2.4) mg/dl 08/07/25 08/07/25 Range/Units 20:11 17:23 WBC (4.8-10.8) K/ul RBC (4.20-5.40) M/uL Hgb (12.0-16.0) g/dl Hct (37.0-47.0) % MCV (80.0-100.0) fL MCH (25.0-34.0) pg MCHC (32.0-36.0) g/dL RDW Std Deviation (36.4-46.3) fL RDW Coeff of Sean (11.5-14.5) % Plt Count (130-400) K/uL MPV (9.4-12.4) fL Sodium (136-145) mmol/L Potassium (3.5-5.1) mmol/L Chloride (98-107) mmol/L Carbon Dioxide (21-32) mmol/L Anion Gap (3-11) BUN (6-23) mg/dl Creatinine (0.6-1.2) mg/dl Est Cr Clr Drug Dosing ml/min eGFR BUN/Creatinine Ratio (10-20) Glucose (70-99(Fasting)) mg/dl POC Glucose 272 H 148 H (70-99) mg/dl Calcium (8.6-10.3) mg/dl Phosphorus (2.5-4.9) mg/dl Magnesium (1.7-2.4) mg/dl Medications Administered Current Inpatient Medications Aspirin (Aspirin 81 Mg Ectab) 81 mg PO DAILY [facility] Stop: 09/05/25 08:59 Last Admin: 08/08/25 08:22 Dose: 81 mg Atorvastatin Calcium (Atorvastatin 40 Mg Tab) 40 mg PO DAILY [facility] Stop: 09/05/25 08:59 Last Admin: 08/08/25 08:22 Dose: 40 mg Citalopram Hydrobromide (Citalopram 20 Mg Tab) 10 mg PO DAILY [facility] Stop: 09/05/25 08:59 Last Admin: 08/08/25 08:22 Dose: 10 mg Dextrose (Dextrose 50% 50 Ml Syringe) 25 - 50 ml IV UD PRN; Protocol PRN Reason: Hypoglycemia Protocol Stop: 09/04/25 17:14 Ezetimibe (Ezetimibe 10 Mg Tab) 10 mg PO DAILY REM[facility] Stop: 09/05/25 08:59 Last Admin: 08/08/25 08:22 Dose: 10 mg Folic Acid (Folic Acid 1 Mg Tab) 1 mg PO DAILY [facility] Stop: 09/05/25 08:59 Last Admin: 08/08/25 08:22 Dose: 1 mg Glucagon (Glucagon For Inj 1 Mg Vial) 1 mg SQ UD PRN; Protocol PRN Reason: Hypoglycemia Protocol Stop: 09/04/25 17:14 Glucose (Glucose 40% Gel 15 Gm Tube) 15 - 30 gm PO UD PRN; Protocol PRN Reason: Hypoglycemia Protocol Stop: 09/04/25 17:14 Glucose (Glucose 10 Tab/Tube) 4 - 8 tab PO UD PRN; Protocol PRN Reason: Hypoglycemia Protocol Stop: 09/04/25 17:14 Insulin Aspart (Insulin, Rapid-Acting Pump) 0 each N/A ACHS [facility]; Protocol Stop: 09/04/25 20:59 Last Admin: 08/08/25 10:09 Dose: 1.4 each Insulin Aspart (Insulin Aspart 100 Units/Ml Vial) 0 units SC PRN PRN PRN Reason: Pump Refill Use ONLY Stop: 09/04/25 17:14 Losartan Potassium (Losartan Potassium 50 Mg Tab) 50 mg PO HS [facility] Stop: 09/05/25 20:59 Last Admin: 08/07/25 21:44 Dose: 50 mg Metoprolol Succinate (Metoprolol Succ 50mg Ext Rel Tab) 50 mg PO DAILY [facility] Stop: 09/06/25 08:59 Last Admin: 08/08/25 08:23 Dose: 50 mg Metoprolol Succinate (Metoprolol Succ 50mg Ext Rel Tab) 50 mg PO HS REM[facility]IOS Stop: 09/05/25 20:59 Last Admin: 08/07/25 21:44 Dose: 50 mg Miscellaneous (Carbohydrates For Hypoglycemia ) 15 - 30 gm PO UD PRN PRN Reason: Hypoglycemia Treatment Stop: 09/04/25 17:14 Pantoprazole Sodium (Pantoprazole 40 Mg Tab) 40 mg PO DAILY [facility] Stop: 09/05/25 08:59 Last Admin: 08/08/25 08:23 Dose: 40 mg Senna/Docusate Sodium (Docusate Sodium/Senna 50/8.6mg Tab) 1 tab PO QAM [facility] Stop: 09/05/25 07:34 Last Admin: 08/08/25 08:22 Dose: Not Given Spironolactone (Spironolactone 12.5 Mg Tab) 12.5 mg PO DAILY [facility] Stop: 09/05/25 08:59 Last Admin: 08/08/25 08:23 Dose: 12.5 mg Vitamin D (Cholecalciferol 25 Mcg (1000 Units) Tab) 25 mcg PO DAILY [facility] Stop: 09/05/25 08:59 Last Admin: 08/08/25 08:22 Dose: 25 mcg
--- NOTE | 2025-08-08 14:27 | Dialysis Progress Note ---
Date of Service August 08, 2025 Assessment & Plan (1) ESRD (end stage renal disease): Plan: profound volume overload in the setting of ESRD and HFrEF. >HD today 4 hrs w/ as aggressive UF as she will tolerate; at OP HD she has routinely not hit UF goals d/t hypotension; limit UFR as below -Given issues with catheter which have limited us completing her treatments, will do heparin bolus today -Continue lowered FR to 1.2 L for now -likely to need daily HD for several days to optimize vol status - HD today- reasses in am for further Hd needs >note rivastigmine not removed by HD; no dose adjustment needed typically >> did talk to about challenges of managing this complex pt with teams from out of state adjusting medications; he states he's working to consolidate care Noted that neurology here recommends not resuming rivastigmine. Noted also that cerebral amyloid angiopathy per them precludes cardiac cath. As per her Supply And Distribution Manager, the basis for cerebral amyloid angiopathy diagnosis is unclear: Reviewed August 31, 2024 neurology note from [facility] which states that the diagnosis is based on imaging. Noted that the patient had an MRI of her brain done in the [facility] system September 2024 and no mention of CAA is on the differential. Updated Dr. Carolina to see if she wishes to pursue further evaluation with neurology. (2) NSTEMI (non-ST elevation myocardial infarction): Plan: >high risk for worsening cardiac status w/ active NSTEMI and hemodynamic changes inevitable w/ dialysis. that said, we must remove fluid to improve her volume status and stabilize her HF/cardiac issues best we can >> slow/gentle/frequent HD best we can in hospital is most appropriate for her; do not believe that CRRT is obligate here but will monitor for need (would require transfer) -in the setting of new HFrEF (from last month at 25%) and permanent AFib d/t this will keep UF rate below 7.5 ml/kg/hr for today for medical mgt per cardiology > retimed metoprolol, cozaar doses so she has more BP for tx and so that BB is not removed w/ dialysis (3) Pleural effusion: Plan: Status post August 06 1 L thoracentesis left; transudative fluid studies; pathology pending (4) Anemia: Plan: some is dilutional; that said, hemoglobin is trending down slowly to 8.7 today iron stores at [facility] on 07/26 t sat 26%; no need for venofer; avoid VALERIE w/ active AR (5) Generalized weakness: Plan: improved some today; fairly poor functional status at baseline > transfers w/ asst at best Admission and Anticipated Discharge Date Admission Date: August 05, 2025 Subjective Currently lying in bed in NAD She is awake, and able to answer some simple questions. Her is present at the bedside and answers most questions. He says he thinks she is doing better. c/o neck pain but no, shortness of breath, abd. pain. Review of Systems Review of Systems: All systems reviewed & are unremarkable except as noted in HPI & below Physical Exam Physical Exam: Constitutional: + cachectic, + ph ysical limitations , + frail appearin g and cooperative; no acute distress Eyes: EOM intact bilater ally ENMT: Mouth: + dry oral mucous membranes Neck: no nuchal rigidity Respiratory: normal respiratory effort Auscultat ion: + diminished lung sounds Cardiovascular: Rate/Rhythm: regul ar rate and + irre gularly irregular Extremities: + ed emily (1+ BL ankles, trace pretibial) Gastrointestinal ( Abdomen): Inspection/Auscult ation: normal malaika l sounds Percussi on/Palpation: abdo men soft; abdomen nontender Musculoskeletal: Extremities: + hernandez ited ROM of extrem ities and + abnorm al strength Results & Data Vital Signs (Past 12 Hours) Vital Signs Temp Pulse Pulse Pulse Resp BP BP 08/08/25 14:00 90 147/95 H 08/08/25 13:30 84 149/85 H 08/08/25 13:00 96 H 134/81 08/08/25 12:30 76 128/79 08/08/25 12:00 85 106/71 08/08/25 11:30 66 114/64 08/08/25 11:17 88 111/69 08/08/25 11:11 36.9 C 90 08/08/25 10:59 36.0 C L 75 18 111/57 L 08/08/25 09:04 08/08/25 07:15 36.7 C 81 18 151/84 H 08/08/25 03:03 37.0 C 86 18 BP Pulse Ox O2 Del Method O2 Flow Rate 08/08/25 14:00 10/09/25 13:30 08/08/25 13:00 08/08/25 12:30 08/08/25 12:00 08/08/25 11:30 08/08/25 11:17 08/08/25 11:11 08/08/25 10:59 92 Nasal Cannula 08/08/25 09:04 Nasal Cannula 1 08/08/25 07:15 98 Nasal Cannula 2 08/08/25 03:03 153/92 H 96 Nasal Cannula 2 (4) Anemia Anemia type: unspecified type Qualified Code(s): D64.9 - Anemia, unspecified
[2025-08-08 20:24] LABS: Base Excess VBG 6.1 mEq/L; HCO3 VBG 31 mmol/L; Oxygen Saturation VBG 78.5 %; PCO2 VBG 46 mmHg (38-50); PO2 VBG 46 mmHg; pH VBG 7.44 (7.36-7.41)
[2025-08-09 06:14] LABS: Hematocrit (blood only) 29.8 % (37.0-47.0); Hemoglobin 9.5 g/dl (12.0-16.0); Mean Corpuscular Hemoglobin 31.6 pg (25.0-34.0); Mean Corpuscular Volume 99.0 fL (80.0-100.0); Platelet Count 178 K/uL (130-400); RDW Standard Deviation 60.6 fL (36.4-46.3); Red Blood Count 3.01 M/uL (4.20-5.40); White Blood Count 7.30 K/ul (4.8-10.8)
[2025-08-09 06:36] LABS: Anion Gap 5.0 (3-11); Blood Urea Nitrogen 9.0 mg/dl (6-23); Calcium 8.4 mg/dl (8.6-10.3); Carbon Dioxide 31.0 mmol/L (21-32); Chloride 104.0 mmol/L (98-107); Creatinine Clr Calc Pharmacy 27.0 ml/min; Glucose 110.0 mg/dl (70-99(Fasting)); Magnesium 1.8 mg/dl (1.7-2.4); Potassium 3.8 mmol/L (3.5-5.1); Sodium 140.0 mmol/L (136-145)
--- NOTE | 2025-08-09 08:08 | Nephrology Progress Note ---
Date of Service August 09, 2025 Assessment & Plan Admission and Anticipated Discharge Date Admission Date: August 05, 2025 Subjective Assessment & Plan (1) ESRD (end stage renal disease): Plan: profound volume overload in the setting of ESRD and HFrEF. >HD today 4 hrs w/ as aggressive UF as she will tolerate; at OP HD she has routinely not hit UF goals d/t hypotension; limit UFR as below -Given issues with catheter which have limited us completing her treatments Continue lowered FR to 1.2 L for now Skip dialysis today. Will do again tomorrow. She is extremely tired as per and nurse after 3 consecutive days of dialysis. patient did not talk to me as she was in a curled up position. breathing is noted to be better >note rivastigmine not removed by HD; no dose adjustment needed typically >> did talk to about challenges of managing this complex pt with teams from out of state adjusting medications; he states he's working to consolidate care Note that neurology here recommends not resuming rivastigmine. Note also that cerebral amyloid angiopathy per them precludes cardiac cath. I will say that the basis for cerebral amyloid angiopathy diagnosis is unclear: I reviewed August 31, 2024 neurology note from [facility] which states that the diagnosis is based on imaging. I note that the patient had an MRI of her brain done in the [facility] system September 2024 and no mention of CAA is on the differential. Will update Dr. Carolina to see if she wishes to pursue further evaluation with carmen diego. Care reviewed by [facility] w/ Dr Carolina regarding HD timing/goals, f/u of hgb, basis of angiopathy dx plans; we are in agreement. (2) NSTEMI (non-ST elevation myocardial infarction): Plan: high risk for worsening cardiac status w/ active NSTEMI and hemodynamic changes inevitable w/ dialysis. that said, we must remove fluid to improve her volume status and stabilize her HF/cardiac issues best we can >> slow/gentle/frequent HD best we can in hospital is most appropriate for her. do not believe that CRRT is obligate here but will monitor for need (would require transfer) -in the setting of new HFrEF (from last month at 25%) and permanent AFib for medical mgt per cardiology (3) Pleural effusion: Plan: Status post August 06 1 L thoracentesis left; transudative fluid studies; pathology pending (4) Anemia: Plan: some is dilutional; that said, hemoglobin is trending down slowly to 8.7 today iron stores at [facility] on 07/26 t sat 26%; no need for venofer; avoid VALERIE w/ active [place] (5) Generalized weakness: Plan: improved some today; fairly poor functional status at baseline > transfers w/ asst at best Subjective Seen and evaluated for ESRD and vol overload. daily dialysis last 3 days. UF was 1.5 liter yesterday. now on RA. She is extremely tired as per and nurse after 3 consecutive days of dialysis. patient did not talk to me as she was in a curled up position. breathing is noted to be better Neurology evaluated the patient and recommends no resumption of rivastigmine and defers cardiac cath due to diagnosis of cerebral amyloid angiopathy. Patient denies shortness of breath, uncontrolled pain, nausea, chest discomfort; room air Review of Systems Review of Systems: All systems reviewed & are unremarkable except as noted in Subjective Physical Exam Constitutional: well developed (on ), + cachectic, + physical limitations, + frail appearing and cooperative; no acute distress Eyes: EOM intact bilaterally ENMT: Mouth: + dry oral mucous membranes Neck: no nuchal rigidity Respiratory: normal respiratory effort Auscultation: + diminished lung sounds Cardiovascular: Rate/Rhythm: regular rate and + irregularly irregular Extremities: + edema (1+ BL ankles, trace pretibial) Gastrointestinal (Abdomen): Inspection/Auscultation: normal bowel sounds Percussion/Palpation: abdomen soft; abdomen nontender Musculoskeletal: Extremities: + limited ROM of extremities and + abnormal strength Skin: no rashes, warm and dry Results & Data Vital Signs (Past 12 Hours) Vital Signs Temp Pulse Pulse Resp BP BP Pulse Ox 08/09/25 07:57 36.5 C 96 H 28 H 130/88 92 08/09/25 05:26 82 08/09/25 03:28 36.6 C 82 24 146/94 H 91 08/08/25 23:04 36.7 C 78 14 140/80 94 O2 Del Method 08/09/25 07:57 Room Air 08/09/25 05:26 08/09/25 03:28 Room Air 08/08/25 23:04 Room Air
--- NOTE | 2025-08-09 15:45 | Hospitalist Progress Note ---
Date of Service August 09, 2025 Assessment & Plan (1) Acute metabolic encephalopathy: Plan: Suspect due to Exelon patch (2) Acute on chronic heart failure with reduced ejection fraction (HFrEF, <= 40%) and combined systolic and diastolic dysfunction: (3) NSTEMI (non-ST elevation myocardial infarction): (4) Chronic bilateral pleural effusions: (5) End-stage renal disease on hemodialysis: (6) Anemia, chronic renal failure: (7) Chronic atrial fibrillation: (8) Cerebral amyloid angiopathy: (9) Pulmonary hypertension: (10) Diabetes mellitus type 2, noninsulin dependent: (11) Cognitive impairment: Plan Per previous providers w/addendum: (1) Lethargy: (2) Pleural effusion: (3) NSTEMI (non-ST elevation myocardial infarction): (4) ESRD (end stage renal disease): Plan: Patient is 84 year old female with PMH End-stage renal disease, recently started on hemodialysis,DM I, anemia of chronic disease, PAF s/p left atrial appendage occluder device placement in March 2024, HTN, HLD, chronic diastolic HF, history of meningioma s/p resection in 2014, multinodular goiter, cerebral amyloid angiopathy with history of cerebral bleed, TIA, cognitive impairment presenting with weakness and drowsiness x 2 to 3 days. WEAKNESS, ACUTE HYPOXIA LARGE LEFT PLEURAL EFFUSION VS. PNEUMONIA ESRD on HD Cardiomyopathy EF 25% Currently on 2 L of O2 via nasal cannula Chest x-ray showing large pleural effusion versus consolidation CT chest obtained -> Pulmonary consulted - and pt is s/p Left thoracentesis (08/06), 1L of fluid removed check for Respiratory panel, MRSA nasal swab blood cultures Nephrology service consulted--> s/p HD (on 08/06, 08/07, 08/08) and plan for HD tmrw TROPONIN ELEVATION POSSIBLE NSTEMI diagnosed with Cardiomyopathy EF 25% last July at [facility] no report of chest pain as per family Anticoagulation contraindicated due to history of cerebral bleed, cerebral amyloid angiopathy - discussed w/ neurology in detail Echo obtained continue Metoprolol, Aspirin, Atorvastatin, losartan Cardiology consulted - cont. medical management ENCEPHALOPATHY, LETHARGY likely secondary to above CT head negative VBG no hypercapnea from Rivastigmine? It appears that the Exelon patch was restarted about 3 days ago at the recommendation of her neurologist in [place]. Rivastigmine patch was discontinued on (08/06) Neurology consulted and discussed with - (1) Cerebral amyloid angiopathy: Mrs. Garcia presents with cerebral amyloid angiopathy, reduced ejection fraction, and recent confusion after rivastigmine re-initiation, now off the patch and again improving. Please do not restart the rivastigmine. Cardiac cath presents an unacceptable risk of cerebral hemorrhage given her amyloid and the high doses of anticoagulation required. Would also add that DAPT if a stent were placed is also highly risky. Recommend medical management of her heart failure per cardiology. Family in agreement. They plan to return her to [place] after this hospital stay. Would not otherwise start any new medications for her memory. -- Would not pursue cardiac cath due to safety risks in her condition -- Medical management of heart failure -- Stop rivastigmine and do not restart, no other dementia medications recommended. -- Dispo to [place] when stable, no further neurologic workup recommended. Other chronic medical problems: DM1- current Hgb A1c 5.9%, pharmacy glycemic consult Hypertension Paroxysmal A-fib status post left atrial appendage placement- on Metoprolol and Aspirin, not an AC , pt has hx of cerebral amyloid with microhemorrhages Cerebral amyloid angiopathy with history of cerebral bleed TIA History of meningioma s/p resection 2014 DVT prophylaxis SCDs for now CODE STATUS Full code as per Channing at the bedside Disposition - PCU, plan to [facility] Admission and Anticipated Discharge Date Admission Date: August 05, 2025 Subjective Pt seen in follow up , admitted for AMS In July she [place] [facility] status epilepticus Pt has hx of DM 1 on insulin pump On Rivastigmine patch - now off , seen by neurology as well. New on HD - had HD for last 3 days and plan for HD again tomorrow -- very tired per after having HD for 3 consecutive days Currently lying in bed in NAD She appears tired, but opens her eyes to voice, and able to answer some simple questions. denies any discomfort or pain. Her is present at the bedside and answers most questions. Says he fed her breakfast. Pt currently denies any chest pain, shortness of breath, abd. pain. S/p left thoracentesis and S/p HD. Plan for HD tmrw Plan to [facility] Review of Systems Review of Systems: All systems reviewed & are unremarkable except as noted in Subjective Physical Exam Physical Exam: General-thin elderly frail F in NAD , answers some simple questions a ppropriately, breathing with no effort or accessory muscle use Head- atraumatic Eyes- PERRL, EOMI, anicteric Neck- supple, no JVD Lungs- decreased breath sounds, no wheezing Heart- normal rate, irregular rhythm; no murmur Abdomen- normal bowel sounds, nondistended, soft, nontender Extremities- no pretibial edema, moves extremities while lying in bed Neuro- awakens easily, generally weak, answers some simple questions appropriately, moves extremities while lying in bed Skin- warm & dry Results & Data Results & Data Vital Signs (Past 12 Hours) Vital Signs Temp Pulse Pulse Resp BP Pulse Ox O2 Del Method 08/09/25 15:13 36.7 C 87 19 150/117 H 91 Room Air 08/09/25 14:53 92 H 08/09/25 11:16 91 H 08/09/25 10:51 36.9 C 86 16 107/57 L 90 Room Air 08/09/25 07:57 36.5 C 96 H 28 H 130/88 92 Room Air 08/09/25 05:26 82 Laboratory Results 08/09/25 08/09/25 08/09/25 Range/Units 11:05 07:52 05:36 WBC 7.30 (4.8-10.8) K/ul RBC 3.01 L (4.20-5.40) M/uL Hgb 9.5 L (12.0-16.0) g/dl Hct 29.8 L (37.0-47.0) % MCV 99.0 (80.0-100.0) fL MCH 31.6 (25.0-34.0) pg MCHC 31.9 L (32.0-36.0) g/dL RDW Std Deviation 60.6 H (36.4-46.3) fL RDW Coeff of Sean 16.7 H (11.5-14.5) % Plt Count 178 (130-400) K/uL MPV 11.3 (9.4-12.4) fL VBG pH (7.36-7.41) VBG pCO2 (38-50) mmHg VBG pO2 mmHg VBG HCO3 mmol/L VBG O2 Saturation % VBG Base Excess mEq/L Sodium 140 (136-145) mmol/L Potassium 3.8 (3.5-5.1) mmol/L Chloride 104 (98-107) mmol/L Carbon Dioxide 31 (21-32) mmol/L Anion Gap 5 (3-11) BUN 9 (6-23) mg/dl Creatinine 1.20 (0.6-1.2) mg/dl Est Cr Clr Drug Dosing 27.0 ml/min eGFR 44.91 BUN/Creatinine Ratio 7.5 L (10-20) Glucose 110 H (70-99(Fasting)) mg/dl POC Glucose 210 H 112 H (70-99) mg/dl Calcium 8.4 L (8.6-10.3) mg/dl Phosphorus 2.2 L (2.5-4.9) mg/dl Magnesium 1.8 (1.7-2.4) mg/dl 08/08/25 08/08/25 08/08/25 Range/Units 20:41 20:18 16:03 WBC (4.8-10.8) K/ul RBC (4.20-5.40) M/uL Hgb (12.0-16.0) g/dl Hct (37.0-47.0) % MCV (80.0-100.0) fL MCH (25.0-34.0) pg MCHC (32.0-36.0) g/dL RDW Std Deviation (36.4-46.3) fL RDW Coeff of Sean (11.5-14.5) % Plt Count (130-400) K/uL MPV (9.4-12.4) fL VBG pH 7.44 H (7.36-7.41) VBG pCO2 46 (38-50) mmHg VBG pO2 46 mmHg VBG HCO3 31 mmol/L VBG O2 Saturation 78.5 % VBG Base Excess 6.1 mEq/L Sodium (136-145) mmol/L Potassium (3.5-5.1) mmol/L Chloride (98-107) mmol/L Carbon Dioxide (21-32) mmol/L Anion Gap (3-11) BUN (6-23) mg/dl Creatinine (0.6-1.2) mg/dl Est Cr Clr Drug Dosing ml/min eGFR BUN/Creatinine Ratio (10-20) Glucose (70-99(Fasting)) mg/dl POC Glucose 164 H 110 H (70-99) mg/dl Calcium (8.6-10.3) mg/dl Phosphorus (2.5-4.9) mg/dl Magnesium (1.7-2.4) mg/dl Medications Administered Current Inpatient Medications Aspirin (Aspirin 81 Mg Ectab) 81 mg PO DAILY [facility] Stop: 09/05/25 08:59 Last Admin: 08/09/25 08:30 Dose: 81 mg Atorvastatin Calcium (Atorvastatin 40 Mg Tab) 40 mg PO DAILY [facility] Stop: 09/05/25 08:59 Last Admin: 08/09/25 08:31 Dose: 40 mg Citalopram Hydrobromide (Citalopram 20 Mg Tab) 10 mg PO DAILY [facility] Stop: 09/05/25 08:59 Last Admin: 08/09/25 08:31 Dose: 10 mg Dextrose (Dextrose 50% 50 Ml Syringe) 25 - 50 ml IV UD PRN; Protocol PRN Reason: Hypoglycemia Protocol Stop: 09/04/25 17:14 Ezetimibe (Ezetimibe 10 Mg Tab) 10 mg PO DAILY [facility] Stop: 09/05/25 08:59 Last Admin: 08/09/25 08:30 Dose: 10 mg Folic Acid (Folic Acid 1 Mg Tab) 1 mg PO DAILY [facility] Stop: 09/05/25 08:59 Last Admin: 08/09/25 08:31 Dose: 1 mg Glucagon (Glucagon For Inj 1 Mg Vial) 1 mg SQ UD PRN; Protocol PRN Reason: Hypoglycemia Protocol Stop: 09/04/25 17:14 Glucose (Glucose 40% Gel 15 Gm Tube) 15 - 30 gm PO UD PRN; Protocol PRN Reason: Hypoglycemia Protocol Stop: 09/04/25 17:14 Glucose (Glucose 10 Tab/Tube) 4 - 8 tab PO UD PRN; Protocol PRN Reason: Hypoglycemia Protocol Stop: 09/04/25 17:14 Insulin Aspart (Insulin, Rapid-Acting Pump) 0 each N/A ACHS [facility]; Protocol Stop: 09/04/25 20:59 Last Admin: 08/09/25 12:59 Dose: 3.05 each Insulin Aspart (Insulin Aspart 100 Units/Ml Vial) 0 units SC PRN PRN PRN Reason: Pump Refill Use ONLY Stop: 09/04/25 17:14 Losartan Potassium (Losartan Potassium 50 Mg Tab) 50 mg PO HS [facility] Stop: 09/05/25 20:59 Last Admin: 08/08/25 20:39 Dose: Not Given Metoprolol Succinate (Metoprolol Succ 50mg Ext Rel Tab) 50 mg PO DAILY [facility] Stop: 09/06/25 08:59 Last Admin: 08/09/25 08:30 Dose: 50 mg Metoprolol Succinate (Metoprolol Succ 50mg Ext Rel Tab) 50 mg PO HS [facility] Stop: 09/05/25 20:59 Last Admin: 08/08/25 20:39 Dose: Not Given Miscellaneous (Carbohydrates For Hypoglycemia ) 15 - 30 gm PO UD PRN PRN Reason: Hypoglycemia Treatment Stop: 09/04/25 17:14 Pantoprazole Sodium (Pantoprazole 40 Mg Tab) 40 mg PO DAILY [facility] Stop: 09/05/25 08:59 Last Admin: 08/09/25 08:30 Dose: 40 mg Senna/Docusate Sodium (Docusate Sodium/Senna 50/8.6mg Tab) 1 tab PO QAM [facility] Stop: 09/05/25 07:34 Last Admin: 08/09/25 08:33 Dose: 1 tab Spironolactone (Spironolactone 12.5 Mg Tab) 12.5 mg PO DAILY [facility] Stop: 09/05/25 08:59 Last Admin: 08/09/25 08:31 Dose: 12.5 mg Vitamin D (Cholecalciferol 25 Mcg (1000 Units) Tab) 25 mcg PO DAILY [facility] Stop: 09/05/25 08:59 Last Admin: 08/09/25 08:30 Dose: 25 mcg
[2025-08-10 08:30] LABS: Hematocrit (blood only) 30.0 % (37.0-47.0); Hemoglobin 9.8 g/dl (12.0-16.0); Mean Corpuscular Hemoglobin 32.2 pg (25.0-34.0); Mean Corpuscular Volume 98.7 fL (80.0-100.0); Platelet Count 171 K/uL (130-400); RDW Standard Deviation 60.3 fL (36.4-46.3); Red Blood Count 3.04 M/uL (4.20-5.40); White Blood Count 7.27 K/ul (4.8-10.8)
[2025-08-10 08:47] LABS: Anion Gap 7.0 (3-11); Blood Urea Nitrogen 23.0 mg/dl (6-23); Calcium 8.3 mg/dl (8.6-10.3); Carbon Dioxide 29.0 mmol/L (21-32); Chloride 104.0 mmol/L (98-107); Creatinine Clr Calc Pharmacy 15.5 ml/min; Glucose 142.0 mg/dl (70-99(Fasting)); Magnesium 1.9 mg/dl (1.7-2.4); Potassium 4.3 mmol/L (3.5-5.1); Sodium 140.0 mmol/L (136-145)
--- NOTE | 2025-08-10 10:47 | Hospitalist Progress Note ---
Date of Service August 10, 2025 Assessment & Plan (1) Acute metabolic encephalopathy: Plan: Suspect due to Exelon patch (2) Acute on chronic heart failure with reduced ejection fraction (HFrEF, <= 40%) and combined systolic and diastolic dysfunction: (3) NSTEMI (non-ST elevation myocardial infarction): (4) Chronic bilateral pleural effusions: (5) End-stage renal disease on hemodialysis: (6) Anemia, chronic renal failure: (7) Chronic atrial fibrillation: (8) Cerebral amyloid angiopathy: (9) Pulmonary hypertension: (10) Diabetes mellitus type 2, noninsulin dependent: (11) Cognitive impairment: Plan Per previous providers w/addendum: (1) Lethargy: (2) Pleural effusion: (3) NSTEMI (non-ST elevation myocardial infarction): (4) ESRD (end stage renal disease): Plan: Patient is 84 year old female with PMH End-stage renal disease, recently started on hemodialysis,DM I, anemia of chronic disease, PAF s/p left atrial appendage occluder device placement in March 2024, HTN, HLD, chronic diastolic HF, history of meningioma s/p resection in 2014, multinodular goiter, cerebral amyloid angiopathy with history of cerebral bleed, TIA, cognitive impairment presenting with weakness and drowsiness x 2 to 3 days. WEAKNESS, ACUTE HYPOXIA LARGE LEFT PLEURAL EFFUSION VS. PNEUMONIA ESRD on HD Cardiomyopathy EF 25% Currently on 2 L of O2 via nasal cannula Chest x-ray showing large pleural effusion versus consolidation CT chest obtained -> Pulmonary consulted - and pt is s/p Left thoracentesis (08/06), 1L of fluid removed check for Respiratory panel, MRSA nasal swab blood cultures Nephrology service consulted--> s/p HD (on 08/06, 08/07, 08/08) and plan for HD today (08/10) TROPONIN ELEVATION POSSIBLE NSTEMI diagnosed with Cardiomyopathy EF 25% last July at [facility] no report of chest pain as per family Anticoagulation contraindicated due to history of cerebral bleed, cerebral amyloid angiopathy - discussed w/ neurology in detail Echo obtained continue Metoprolol, Aspirin, Atorvastatin, losartan Cardiology consulted - cont. medical management ENCEPHALOPATHY, LETHARGY likely secondary to above CT head negative VBG no hypercapnea from Rivastigmine? It appears that the Exelon patch was restarted about 3 days ago at the recommendation of her neurologist in [place]. Rivastigmine patch was discontinued on (08/06) Neurology consulted and discussed with - (1) Cerebral amyloid angiopathy: Mrs. Garcia presents with cerebral amyloid angiopathy, reduced ejection fraction, and recent confusion after rivastigmine re-initiation, now off the patch and again improving. Please do not restart the rivastigmine. Cardiac cath presents an unacceptable risk of cerebral hemorrhage given her amyloid and the high doses of anticoagulation required. Would also add that DAPT if a stent were placed is also highly risky. Recommend medical management of her heart failure per cardiology. Family in agreement. They plan to return her to [place] after this hospital stay. Would not otherwise start any new medications for her memory. -- Would not pursue cardiac cath due to safety risks in her condition -- Medical management of heart failure -- Stop rivastigmine and do not restart, no other dementia medications recommended. -- Dispo to [place] when stable, no further neurologic workup recommended. Other chronic medical problems: DM1- current Hgb A1c 5.9%, pharmacy glycemic consult Hypertension Paroxysmal A-fib status post left atrial appendage placement- on Metoprolol and Aspirin, not an AC , pt has hx of cerebral amyloid with microhemorrhages Cerebral amyloid angiopathy with history of cerebral bleed TIA History of meningioma s/p resection 2014 DVT prophylaxis SCDs for now CODE STATUS Full code as per [place] at the bedside Disposition - PCU, plan to [facility] Admission and Anticipated Discharge Date Admission Date: August 05, 2025 Subjective Pt seen in follow up , admitted for AMS In July she was transferred to [facility] for poss. status epilepticus Pt has hx of DM 1 on insulin pump On Rivastigmine patch - now off , seen by neurology as well. New on HD - had HD for 3 consecutive days , then no HD yesterday and plan for HD again today -- yesterday she felt very tired. But in the afternoon says she had more family visiting and she communicated with them.This AM ate breakfast. Also awake, eyes open the whole time. Denies any pain or discomfort. Pt currently denies any chest pain, shortness of breath, abd. pain. S/p left thoracentesis and S/p HD. Plan for HD today again. Plan to [facility] Review of Systems Review of Systems: All systems reviewed & are unremarkable except as noted in Subjective Physical Exam Physical Exam: General-thin elderly frail F in NAD , answers some simple questions appropriately, breathing with no effort or accessory muscle use Head- atraumatic Eyes- PERRL, EOMI, anicteric Neck- supple, no JVD Lungs- decreased breath sounds, no wheezing Heart- normal rate, irregular rhythm; no murmur Abdomen- normal bowel sounds, nondistended, soft, nontender Extremities- no pretibial edema, moves extremities while lying in bed Neuro- awake today, generally weak, answers some simple questions appropriately, moves extremities while lying in bed Skin- warm & dry Results & Data Results & Data Vital Signs (Past 12 Hours) Vital Signs Temp Pulse Resp BP Pulse Ox O2 Del Method 08/10/25 08:11 36.6 C 88 17 143/99 H 90 Room Air 08/10/25 03:53 36.7 C 82 16 148/93 H 90 Room Air 08/09/25 23:12 36.7 C 87 18 132/80 92 Room Air Laboratory Results 08/10/25 08/10/25 08/09/25 Range/Units 08:14 07:19 16:29 WBC 7.27 (4.8-10.8) K/ul RBC 3.04 L (4.20-5.40) M/uL Hgb 9.8 L (12.0-16.0) g/dl Hct 30.0 L (37.0-47.0) % MCV 98.7 (80.0-100.0) fL MCH 32.2 (25.0-34.0) pg MCHC 32.7 (32.0-36.0) g/dL RDW Std Deviation 60.3 H (36.4-46.3) fL RDW Coeff of Sean 16.6 H (11.5-14.5) % Plt Count 171 (130-400) K/uL MPV 11.2 (9.4-12.4) fL Sodium 140 (136-145) mmol/L Potassium 4.3 (3.5-5.1) mmol/L Chloride 104 (98-107) mmol/L Carbon Dioxide 29 (21-32) mmol/L Anion Gap 7 (3-11) BUN 23 (6-23) mg/dl Creatinine 2.17 H D (0.6-1.2) mg/dl Est Cr Clr Drug Dosing 15.5 ml/min eGFR 22.06 BUN/Creatinine Ratio 10.6 (10-20) Glucose 142 H (70-99(Fasting)) mg/dl POC Glucose 125 H 187 H (70-99) mg/dl Calcium 8.3 L (8.6-10.3) mg/dl Phosphorus 2.7 (2.5-4.9) mg/dl Magnesium 1.9 (1.7-2.4) mg/dl 08/09/25 Range/Units 11:05 WBC (4.8-10.8) K/ul RBC (4.20-5.40) M/uL Hgb (12.0-16.0) g/dl Hct (37.0-47.0) % MCV (80.0-100.0) fL MCH (25.0-34.0) pg MCHC (32.0-36.0) g/dL RDW Std Deviation (36.4-46.3) fL RDW Coeff of Sean (11.5-14.5) % Plt Count (130-400) K/uL MPV (9.4-12.4) fL Sodium (136-145) mmol/L Potassium (3.5-5.1) mmol/L Chloride (98-107) mmol/L Carbon Dioxide (21-32) mmol/L Anion Gap (3-11) BUN (6-23) mg/dl Creatinine (0.6-1.2) mg/dl Est Cr Clr Drug Dosing ml/min eGFR BUN/Creatinine Ratio (10-20) Glucose (70-99(Fasting)) mg/dl POC Glucose 210 H (70-99) mg/dl Calcium (8.6-10.3) mg/dl Phosphorus (2.5-4.9) mg/dl Magnesium (1.7-2.4) mg/dl Medications Administered Current Inpatient Medications Aspirin (Aspirin 81 Mg Ectab) 81 mg PO DAILY [facility] Stop: 09/05/25 08:59 Last Admin: 08/10/25 07:56 Dose: 81 mg Atorvastatin Calcium (Atorvastatin 40 Mg Tab) 40 mg PO DAILY [facility] Stop: 09/05/25 08:59 Last Admin: 08/10/25 07:57 Dose: 40 mg Citalopram Hydrobromide (Citalopram 20 Mg Tab) 10 mg PO DAILY [facility] Stop: 09/05/25 08:59 Last Admin: 08/10/25 07:55 Dose: 10 mg Dextrose (Dextrose 50% 50 Ml Syringe) 25 - 50 ml IV UD PRN; Protocol PRN Reason: Hypoglycemia Protocol Stop: 09/04/25 17:14 Ezetimibe (Ezetimibe 10 Mg Tab) 10 mg PO DAILY [facility] Stop: 09/05/25 08:59 Last Admin: 08/10/25 07:55 Dose: 10 mg Folic Acid (Folic Acid 1 Mg Tab) 1 mg PO DAILY [facility] Stop: 09/05/25 08:59 Last Admin: 08/10/25 07:55 Dose: 1 mg Glucagon (Glucagon For Inj 1 Mg Vial) 1 mg SQ UD PRN; Protocol PRN Reason: Hypoglycemia Protocol Stop: 09/04/25 17:14 Glucose (Glucose 40% Gel 15 Gm Tube) 15 - 30 gm PO UD PRN; Protocol PRN Reason: Hypoglycemia Protocol Stop: 09/04/25 17:14 Glucose (Glucose 10 Tab/Tube) 4 - 8 tab PO UD PRN; Protocol PRN Reason: Hypoglycemia Protocol Stop: 09/04/25 17:14 Insulin Aspart (Insulin, Rapid-Acting Pump) 0 each N/A ACHS [facility]; Protocol Stop: 09/04/25 20:59 Last Admin: 08/10/25 09:29 Dose: 1.7 each Insulin Aspart (Insulin Aspart 100 Units/Ml Vial) 0 units SC PRN PRN PRN Reason: Pump Refill Use ONLY Stop: 09/04/25 17:14 Losartan Potassium (Losartan Potassium 50 Mg Tab) 50 mg PO [facility] Stop: 09/05/25 20:59 Last Admin: 08/09/25 21:10 Dose: 50 mg Metoprolol Succinate (Metoprolol Succ 50mg Ext Rel Tab) 50 mg PO DAILY [facility] Stop: 09/06/25 08:59 Last Admin: 08/10/25 07:57 Dose: 50 mg Metoprolol Succinate (Metoprolol Succ 50mg Ext Rel Tab) 50 mg PO HS [facility] Stop: 09/05/25 20:59 Last Admin: 08/09/25 21:10 Dose: 50 mg Miscellaneous (Carbohydrates For Hypoglycemia ) 15 - 30 gm PO UD PRN PRN Reason: Hypoglycemia Treatment Stop: 09/04/25 17:14 Pantoprazole Sodium (Pantoprazole 40 Mg Tab) 40 mg PO DAILY [facility] Stop: 09/05/25 08:59 Last Admin: 08/10/25 07:57 Dose: 40 mg Senna/Docusate Sodium (Docusate Sodium/Senna 50/8.6mg Tab) 1 tab PO QAM [facility] Stop: 09/05/25 07:34 Last Admin: 08/10/25 07:58 Dose: 1 tab Spironolactone (Spironolactone 12.5 Mg Tab) 12.5 mg PO DAILY [facility] Stop: 09/05/25 08:59 Last Admin: 08/10/25 07:58 Dose: 12.5 mg Vitamin D (Cholecalciferol 25 Mcg (1000 Units) Tab) 25 mcg PO DAILY [facility] Stop: 09/05/25 08:59 Last Admin: 08/10/25 07:55 Dose: 25 mcg
--- NOTE | 2025-08-10 14:58 | Nephrology Progress Note ---
Date of Service August 10, 2025 Assessment & Plan (1) ESRD (end stage renal disease): Plan: improving volume overload in the setting of ESRD and HFrEF. >HD today further UF as she will tolerate; at OP HD she has routinely not hit UF goals d/t hypotension; limit UFR as below -Given issues with catheter which have limited us completing her treatments, will do heparin bolus intermittently; caution b/c of CAA -Continue lowered FR to 1.2 L for now Had daily HD for several days to optimize vol status - next HD 08/12 or as needs dictate >note rivastigmine not removed by HD; no dose adjustment needed typically >> did talk to about challenges of managing this complex pt with teams from out of [place] adjusting medications; he states he's working to consolidate care (2) NSTEMI (non-ST elevation myocardial infarction): Plan: >high risk for worsening cardiac status w/ active NSTEMI and hemodynamic changes inevitable w/ dialysis. that said, we must remove fluid to improve her volume status and stabilize her HF/cardiac issues best we can >> slow/gentle/frequent HD best we can in hospital is most appropriate for her; do not believe that CRRT is obligate here but will monitor for need (would require transfer) -in the setting of new HFrEF (from last month at 25%) and permanent AFib d/t this will keep UF rate below 7.5 ml/kg/hr for medical mgt per cardiology > cont metoprolol, cozaar spironolactone current times/doses, so that BB is not removed w/ dialysis reviewed plan of care w/ her who's at bedside (3) Pleural effusion: Plan: Status post August 06 1 L thoracentesis left; transudative fluid studies (4) Anemia: Plan: some is dilutional; that said, hemoglobin improved to 9.8 today iron stores at [facility] on 07/26 t sat 26%; no need for venofer; avoid VALERIE w/ active ID (5) Generalized weakness: Plan: fairly poor functional status at baseline > transfers w/ asst at best Admission and Anticipated Discharge Date Admission Date: August 05, 2025 Subjective tolerated HD today 1.5L UF tired; MS waxes and wanes; edema improving Review of Systems 2 Review of Systems: All systems reviewed & are unremarkable except as noted in Subjective Physical Exam 2 Constitutional: well developed (on RA), + cachectic, + physical limitations, + frail appearing and cooperative; no acute distress (tells me she won't permit a physical exam by me today) Eyes: EOM intact bilaterally ENMT: Mouth: + dry oral mucous membranes Neck: no nuchal rigidity Respiratory: normal respiratory effort Cardiovascular: Extremities: no edema Musculoskeletal: Extremities: + limited ROM of extremities and + abnormal strength Skin: no rashes, warm and dry Results & Data Vital Signs (Past 12 Hours) Vital Signs Temp Pulse Pulse Resp BP BP BP 08/10/25 14:34 36.8 C 83 17 136/81 08/10/25 14:12 36.7 C 78 138/87 08/10/25 14:00 75 150/89 H 08/10/25 13:30 76 145/90 H 08/10/25 13:00 78 127/87 08/10/25 12:30 58 L 135/87 08/10/25 12:00 75 151/91 H 08/10/25 11:30 80 134/82 08/10/25 11:00 93 H 131/96 08/10/25 10:49 79 08/10/25 10:30 84 129/84 08/10/25 10:03 85 106/60 08/10/25 09:58 36.8 C 103 H 08/10/25 08:11 36.6 C 88 17 143/99 H 08/10/25 03:53 36.7 C 82 16 148/93 H Pulse Ox O2 Del Method 08/10/25 14:34 92 Room Air 08/10/25 14:12 08/10/25 14:00 08/10/25 13:30 08/10/25 13:00 08/10/25 12:30 08/10/25 12:00 08/10/25 11:30 08/10/25 11:00 08/10/25 10:49 08/10/25 10:30 08/10/25 10:03 08/10/25 09:58 08/10/25 08:11 90 Room Air 08/10/25 03:53 90 Room Air Laboratory Results 08/10/25 08:14 08/10/25 08:14 (4) Anemia Anemia type: unspecified type Qualified Code(s): D64.9 - Anemia, unspecified
[2025-08-10 19:23] VITALS: RESP 16
[2025-08-11 07:58] VITALS: BP 133/94; TEMP 99; O2SAT 94
[2025-08-11 08:13] LABS: Hematocrit (blood only) 29.1 % (37.0-47.0); Hemoglobin 8.9 g/dl (12.0-16.0); Mean Corpuscular Hemoglobin 30.3 pg (25.0-34.0); Mean Corpuscular Volume 99.0 fL (80.0-100.0); Platelet Count 166 K/uL (130-400); RDW Standard Deviation 60.5 fL (36.4-46.3); Red Blood Count 2.94 M/uL (4.20-5.40); White Blood Count 7.37 K/ul (4.8-10.8)
[2025-08-11 08:34] LABS: Anion Gap 6.0 (3-11); Blood Urea Nitrogen 24.0 mg/dl (6-23); Calcium 8.0 mg/dl (8.6-10.3); Carbon Dioxide 30.0 mmol/L (21-32); Chloride 105.0 mmol/L (98-107); Creatinine Clr Calc Pharmacy 17.7 ml/min; Glucose 107.0 mg/dl (70-99(Fasting)); Magnesium 1.9 mg/dl (1.7-2.4); Potassium 4.0 mmol/L (3.5-5.1); Sodium 141.0 mmol/L (136-145)
--- NOTE | 2025-08-11 13:26 | Discharge Summary ---
Date of Service August 11, 2025 Admission HPI Per Admitting Provider Patient is 84 year old female with PMH End-stage renal disease, recently started on hemodialysis,, DM I, anemia of chronic disease, PAF s/p left atrial appendage occluder device placement in March 2024, HTN, HLD, chronic diastolic HF, history of meningioma s/p resection in 2014, multinodular goiter, cerebral amyloid angiopathy with history of cerebral bleed, TIA, cognitive impairment presenting with weakness and drowsiness x 2 to 3 days. History obtained from ER provider, [facility] records, Channing, and son understand at the bedside. Patient was admitted to [facility] last July for possible status epilepticus, subsequently transferred to [facility]. Status epilepticus ruled out, seizure-like activity/twitching attributed to rivastigmine. She was also started on hemodialysis while at [facility]. Also she was found to have cardiomyopathy With EF of 25%. She was subsequently transferred to [facility] rehab and was discharged to home about 4 days ago. As per family, patient was doing fine at home. Patient's Neurologist from [place] advised patient to be restarted with Rivastigmine She was doing fine until 2 days ago when she started to weakness And drowsiness again. No fever or chills, headache, nausea vomiting, chest pain, shortness of breath, cough. She was noted to have abdominal bloating but no diarrhea or any problems with bowel movement. Due to weakness and drowsiness, patient wasBrought to the ER. Upon arrival, blood pressure 116/73 , 94% on 2 l. Troponin noted to be 3500, present 2100 EKG showing nonspecific T wave inversions in the inferior and anterior leads. BNP 2697 Creatinine 2.9 VBG 7.30 / On exam, patient's Channing and son Regis at the bedside. Patient is sleeping, arousable to tactile stimuli, briefly answers yes or no, nods head, drifts back to sleep immediately. She appears comfortable, no signs of distress or pain. Admission Exam Per Admitting Provider General- lethargic, not in distress,breathing with no effort or accessory muscle use Head- atraumatic Eyes- PERRL, EOMI, anicteric ENT- oropharynx clear Neck- supple, no JVD Lungs- decreased breath sounds left mid to base, no wheezing or crackles Right lung clear Heart- normal rate, regular rhythm; no murmur, no gallop, no rub appreciated Abdomen- normal bowel sounds, nondistended, soft, nontender, no masses or hepatosplenomegaly Extremities- no pretibial edema, no calf tenderness; peripheral pulses intact Neuro-lethargic, no gross focal deficites noted Skin- warm & dry Principal Diagnosis Encephalopathy NSTEMI CHF, pleural effusion s/p thoracentesis ESRD on HD Discharge Exam General- thin elderly frail F in NAD , answers some simple questions appropriately, breathing with no effort or accessory muscle use Head- atraumatic Eyes- PERRL, EOMI, anicteric Neck- supple, no JVD Lungs- decreased breath sounds, no wheezing Heart- normal rate, irregular rhythm; no murmur Abdomen- normal bowel sounds, nondistended, soft, nontender Extremities- no pretibial edema, moves extremities while lying in bed Neuro- awake, generally weak, answers some simple questions appropriately, moves extremities while lying in bed Skin- warm & dry Discharge Data Allergies Allergy/AdvReac Type Severity Reaction Status Date / Time No Known Allergies Allergy Verified 07/16/25 11:05 Consultations 08/05/25 14:25 Consult Cardiology Stat 08/05/25 16:33 Consult Pulmonology Routine 08/05/25 17:08 Consult Nephrology Routine Consult Neurology Routine Ordered Studies 08/05/25 10:33 CT head/brain wo con Stat IMPRESSION: No acute intracranial findings. No change in appearance of the brain. 08/05/25 14:35 CT chest diagnostic wo con Stat IMPRESSION: 1. Large left and small right pleural effusions. Compressive subsegmental left lower lobe and lingular atelectasis. 2. Cardiomegaly with pulmonary edema. Anasarca. Nonspecific asymmetric left breast edema. 3. Small 2.6 cm subpleural right lower lobe alveolar opacity. This could represent alveolar pulmonary edema or a small focus of pneumonia. 4. Decreased attenuation of the cardiac blood pool which could indicate anemia. 5. Multiple subacute left-sided rib fractures. Numerous old bilateral rib fractures. No pneumothorax. 08/05/25 18:43 CT Abdomen and Pelvis [CT abd pelvis wo con] Routine IMPRESSION: 1. Diffuse soft tissue edema suggesting anasarca. 2. Mild right and pxxdiabh-du-blvzt left pleural effusions noted. 3. Evaluation of the pancreas is limited with respiratory artifact and lack of IV contrast. However, there abnormal at least 2 distinct cystic lesions noted in the pancreatic head measuring up to 2.3 cm in diameter and up to 2.5 cm in length. No ductal dilation involving the pancreatic tail. Differential consideration includes pancreatic pseudocyst versus benign and malignant cystic lesions of the pancreas. Recommend dedicated high-resolution imaging of the pancreas, ideally when the patient is able to breath hold for the examination. 4. Trace fluid in the dependent pelvis. No loculation. 5. No evidence for bowel obstruction. Evaluation of the bowel mucosa is slightly limited without contrast; however, no definite focal asymmetry suggested. Acfb-ct-[id number] stool burden. No pneumoperitoneum. 08/06/25 10:23 IR thoracentesis wo tube US Stat IMPRESSION: Ultrasound-guided left thoracentesis as above. Hospital Course (1) Acute metabolic encephalopathy: Suspect due to Exelon patch (2) Acute on chronic heart failure with reduced ejection fraction (HFrEF, <= 40%) and combined systolic and diastolic dysfunction: (3) NSTEMI (non-ST elevation myocardial infarction): (4) Chronic bilateral pleural effusions: (5) End-stage renal disease on hemodialysis: (6) Anemia, chronic renal failure: (7) Chronic atrial fibrillation: (8) Cerebral amyloid angiopathy: (9) Pulmonary hypertension: (10) Diabetes mellitus type 2, noninsulin dependent: (11) Cognitive impairment: Plan (1) Lethargy: (2) Pleural effusion: (3) NSTEMI (non-ST elevation myocardial infarction): (4) ESRD (end stage renal disease): Plan: Patient is 84 year old female with PMH End-stage renal disease, recently started on hemodialysis,DM I, anemia of chronic disease, PAF s/p left atrial appendage occluder device placement in March 2024, HTN, HLD, chronic diastolic HF, history of meningioma s/p resection in 2014, multinodular goiter, cerebral amyloid angiopathy with history of cerebral bleed, TIA, cognitive impairment presenting with weakness and drowsiness x 2 to 3 days. WEAKNESS, ACUTE HYPOXIA LARGE LEFT PLEURAL EFFUSION VS. PNEUMONIA ESRD on HD Cardiomyopathy EF 25% Currently on 2 L of O2 via nasal cannula / RA Chest x-ray showing large pleural effusion versus consolidation CT chest obtained -> Pulmonary consulted - and pt is s/p Left thoracentesis (08/06), 1L of fluid removed check for Respiratory panel, MRSA nasal swab blood cultures Nephrology service consulted--> s/p HD (on 08/06, 08/07, 08/08) and again on (08/10) TROPONIN ELEVATION NSTEMI diagnosed with Cardiomyopathy EF 25% last July at [facility] no report of chest pain as per family Anticoagulation contraindicated due to history of cerebral bleed, cerebral amyloid angiopathy - discussed w/ neurology in detail Echo obtained continue Metoprolol 50 bid, Aspirin, Atorvastatin, losartan 50 HS, spironolactone 12.5 mg daily Cardiology consulted - cont. medical management as above ENCEPHALOPATHY, LETHARGY likely secondary to above CT head negative VBG no hypercapnea from Rivastigmine? It appears that the Exelon patch was restarted about 3 days ago at the recommendation of her neurologist in [place]. Rivastigmine patch was discontinued on (08/06) Neurology consulted and discussed with - (1) Cerebral amyloid angiopathy: Mrs. Garcia presents with cerebral amyloid angiopathy, reduced ejection fraction, and recent confusion after rivastigmine re-initiation, now off the patch and again improving. Please do not restart the rivastigmine. Cardiac cath presents an unacceptable risk of cerebral hemorrhage given her amyloid and the high doses of anticoagulation required. Would also add that DAPT if a stent were placed is also highly risky. Recommend medical management of her heart failure per cardiology. Family in agreement. They plan to return her to [place] after this hospital stay. Would not otherwise start any new medications for her memory. -- Would not pursue cardiac cath due to safety risks in her condition -- Medical management of heart failure -- Stop rivastigmine and do not restart, no other dementia medications recommended. -- Dispo to [place] when stable, no further neurologic workup recommended. Other chronic medical problems: DM1- current Hgb A1c 5.9%, pharmacy glycemic consult Hypertension Paroxysmal A-fib status post left atrial appendage placement- on Metoprolol and Aspirin, not an AC , pt has hx of cerebral amyloid with microhemorrhages Cerebral amyloid angiopathy with history of cerebral bleed TIA History of meningioma s/p resection 2014 CODE STATUS - Full code as per Channing at the bedside Total Time Total Time Spent Total Time Spent (In Minutes): 40 Discharge Plan Discharge Items Patient Disposition: Transfer Inpatient Rehab Fac Reason For Visit: ENCEPHALOPATHY, CHF, NSTEMI, ESRD Discharge Diagnosis: Encephalopathy NSTEMI CHF, pleural effusion s/p thoracentesis ESRD on HD Condition on Discharge: Fair Activity: Per Instructions section Non-emergency contact: Primary Care Provider, Specialist, [employer], Dermatologist And Dermatopathologist and Neurologist Call non-emergency contact if: you have any medication questions and your symptoms worsen Follow-up/Referrals: Cecilia Madden, [Primary Care Provider] - Diet: Carb Count or DM1, Dialysis Renal and Heart Healthy Fluids: 1200ml (5 cups) Diet Texture: Pureed (blended smooth) Addtl Attending Provider Instructions: Follow up with primary care physician, personal driver, nurse recruiter, neurologist. Do not use rivastigmine, this medication was discontinued. Your heart medication - metoprolol was split into 2 doses morning, and evening, take it as prescribed. Losartan - take it in the evening. Pending Studies at Discharge: Yes Studies:: HepB, pl. effusion final cultx Stand-Alone Forms: My [facility] Skilled Items Patient informed of condition?: Yes DNR: No Discharge Level of Care: Acute rehab Communicable Disease: No Discharge Prognosis: Stable Lines: [place] Medications and DC Order Prescriptions: New metoprolol succinate 50 mg Tablet Extended Release 24 Hr 50 mg PO DAILY Qty: 30 0RF metoprolol succinate 50 mg Tablet Extended Release 24 Hr 50 mg PO HS Qty: 30 0RF sennosides-docusate sodium [Senokot-S] 8.6-50 mg Tablet 1 tab PO QAM Qty: 30 0RF pantoprazole 40 mg Tablet,Delayed Release (Dr/Ec) 40 mg PO DAILY Qty: 30 0RF Continued Aspirin Low-Strength 81 mg 81 mg PO DAILY losartan 50 mg tablet 50 mg PO DAILY atorvastatin 40 mg tablet 40 mg PO DAILY citalopram 10 mg tablet 10 mg PO DAILY spironolactone 25 mg tablet 12.5 mg PO DAILY sodium bicarbonate 650 mg tablet 1,300 mg PO BID folic acid 1 mg tablet 1 mg PO DAILY ezetimibe 10 mg tablet 10 mg PO DAILY cholecalciferol (vitamin D3) 25 mcg 25 mcg PO DAILY Discontinued metoprolol succinate 100 mg tablet extended release 24 hr 100 mg PO DAILY omeprazole 20 mg capsule,delayed release(DR/EC) 20 mg PO DAILY rivastigmine 4.6 mg/24 hour patch 24 hour 4.6 mg transdermal DAILY Discharge Orders: Discharge Order (Routine); Ordered 08/11/25 Ordered By: Shawn Carolina Admission Data Admit Date/Time: 08/05/25 14:25 Attending Provider: Shawn Carolina Admit Provider: Memo Holley Primary Care Provider: Cecilia Madden Other Providers: Iveth Schroeder; Cesar Zamora; Matt Gr; Travis Dobbs; Ayad Blanco; Aries Benavides; Destinee Eugeen; Myrna Valenzuela; Isa Story; Bessie Adams; Iveth Mays; Dawson Liu; Tal Rico; Dolores Mitchell; Joanna Hurd; Lali Morton; Kathy Acuna; Jonny Godoy; Erica Corrigan; Lorraine Byrd; Darin Blanton; Tu Gann N; Alex Sullivan; Gaby Molina; Isa Rodriges; Martin Ortiz; Isa Fraser; Saman Camacho; Kiko Monroy; Axel Montague; Trevor Hutson; Diandra Baldwin; Stan Sims; Sai Daniels; Susan Garcia; Jesse Miguel; Sravani Roland; Trevor Ching; Sloane Ley; Adelita Teran; David Waller; [facility]
[2025-08-11 17:19] VITALS: PULSE 81
== END 2025-08-11 17:48 | DRG 280 ==
LOC: ED 10:14 → SUATTDRO 14:25 → 2E 14:25